=== PATIENT | female | born 1960 | race Caucasian/White ===

== ENCOUNTER 2020-09-25 08:38 | Outpatient (REF) | payer MEDICAID, SELFPAY ==
[2020-09-25 11:31] LABS: Lithium 0.22 mmol/L (0.60-1.20)
[2020-09-25 11:46] LABS: Alanine Aminotransferase 27 U/L (0-31); Alkaline Phosphatase 44 U/L (39-117); Anion Gap 14 (12-20); Aspartate Amino Transferase 32 U/L (5-31); Bilirubin Total 0.5 mg/dL (0.0-1.0); Blood Urea Nitrogen 20 mg/dL (9-16); Calcium 9.5 mg/dL (8.4-10.2); Carbon Dioxide 28 mmol/L (22-29); Chloride 107 mmol/L (96-108); Estimated Glomerular Filt Rate 32; Glucose Random 83 mg/dL (60-115); Sodium 145 mmol/L (135-145); Total Protein 7.4 g/dL (6.5-8.0)
== END 2020-09-25 08:39 | disposition home or self-care (01) ==
LOC: HO.HMGCLDS 08:38
PROVIDERS: PCP Family Medicine; Visit Provider Psychiatry & Neurology Psychiatry
DX: Z79.899 Other long term (current) drug therapy (principal)
CPT/HCPCS: 80053; 80178

== ENCOUNTER 2020-10-16 08:42 | Outpatient (REF) | payer MEDICAID, SELFPAY ==
[2020-10-16 12:01] LABS: Alanine Aminotransferase 31 U/L (0-31); Alkaline Phosphatase 47 U/L (39-117); Anion Gap 15 (12-20); Aspartate Amino Transferase 36 U/L (5-31); Bilirubin Total 0.5 mg/dL (0.0-1.0); Blood Urea Nitrogen 20 mg/dL (9-16); Calcium 9.6 mg/dL (8.4-10.2); Carbon Dioxide 28 mmol/L (22-29); Chloride 105 mmol/L (96-108); Estimated Glomerular Filt Rate 31; Glucose Random 80 mg/dL (60-115); Sodium 144 mmol/L (135-145); Total Protein 7.4 g/dL (6.5-8.0)
[2020-10-16 12:05] LABS: Lithium < 0.10 mmol/L (0.60-1.20)
== END 2020-10-16 08:43 | disposition home or self-care (01) ==
LOC: HO.HMGCLR 08:42
PROVIDERS: PCP Family Medicine; Visit Provider Psychiatry & Neurology Psychiatry
DX: Z79.899 Other long term (current) drug therapy (principal)
CPT/HCPCS: 80053; 80178

== ENCOUNTER 2020-12-19 09:26 | Outpatient (REF) | payer MEDICAID, SELFPAY ==
[2020-12-19 11:28] LABS: MANUAL DIFF FLAG NO
[2020-12-19 11:47] LABS: Basophils Percent Auto 0.4 % (0-2); Eosinophils Absolute Auto 0.1 X10*3/uL (0.0-0.4); Eosinophils Percent Auto 1.1 % (0-4); Hematocrit 40.3 % (37-47); Hemoglobin 13.6 g/dl (12.0-16.0); Imm Gran Abs Auto 0.02 X10*3/uL (0.00-0.03); Imm Gran Pct Auto 0.3 % (0.0-0.4); Lymphocytes Absolute Auto 1.3 X10*3/uL (1.2-4.9); Lymphocytes Percent Auto 16.8 % (20-40); Mean Corpuscular HGB Conc 33.7 g/dl (31.0-35.0); Mean Platelet Volume 9.3 fL (9.4-12.3); Monocytes Absolute Auto 0.4 X10*3/uL (0.1-1.2); Monocytes Percent Auto 5.1 % (2-11); Neutrophils Percent Auto 76.3 % (45-73); Platelet Count 291 X10*3/uL (160-400); Red Blood Count 4.53 X10*6/uL (4.20-5.50); Red Cell Distribution Width 12.1 % (11.0-16.0); White Blood Count 7.9 X10*3/uL (4.8-10.8)
[2020-12-19 11:52] LABS: Alanine Aminotransferase 26 U/L (0-31); Alkaline Phosphatase 43 U/L (39-117); Anion Gap 16 (12-20); Aspartate Amino Transferase 28 U/L (5-31); Bilirubin Total 0.6 mg/dL (0.0-1.0); Blood Urea Nitrogen 17 mg/dL (9-16); Calcium 9.8 mg/dL (8.4-10.2); Carbon Dioxide 26 mmol/L (22-29); Chloride 108 mmol/L (96-108); Estimated Glomerular Filt Rate 32; Glucose Fasting 97 mg/dL (60-99); Potassium 4.1 mmol/l (3.3-5.1); Sodium 146 mmol/L (135-145); Total Protein 7.4 g/dL (6.5-8.0)
== END 2020-12-19 09:27 | disposition home or self-care (01) ==
LOC: HO.HMGCLDS 09:26
PROVIDERS: PCP Family Medicine; Visit Provider Psychiatry & Neurology Psychiatry
DX: Z79.899 Other long term (current) drug therapy (principal)
CPT/HCPCS: 36415; 80053; 85025

== ENCOUNTER 2021-02-21 08:24 | Outpatient (REF) | payer MEDICAID, SELFPAY ==
[2021-02-21 11:11] LABS: MANUAL DIFF FLAG NO
[2021-02-21 11:27] LABS: Basophils Percent Auto 0.3 % (0-2); Eosinophils Absolute Auto 0.1 X10*3/uL (0.0-0.4); Eosinophils Percent Auto 1.6 % (0-4); Hematocrit 40.9 % (37-47); Hemoglobin 13.6 g/dl (12.0-16.0); Imm Gran Abs Auto 0.01 X10*3/uL (0.00-0.03); Imm Gran Pct Auto 0.2 % (0.0-0.4); Lymphocytes Absolute Auto 1.4 X10*3/uL (1.2-4.9); Lymphocytes Percent Auto 21.6 % (20-40); Mean Corpuscular HGB Conc 33.3 g/dl (31.0-35.0); Mean Corpuscular Hemoglobin 30.2 pg (27.0-33.0); Mean Corpuscular Volume 90.9 fL (80-98); Mean Platelet Volume 9.4 fL (9.4-12.3); Monocytes Absolute Auto 0.3 X10*3/uL (0.1-1.2); Monocytes Percent Auto 5.3 % (2-11); Neutrophils Absolute Auto 4.6 X10*3/uL (2.0-8.3); Platelet Count 264 X10*3/uL (160-400); Red Cell Distribution Width 12.1 % (11.0-16.0); White Blood Count 6.4 X10*3/uL (4.8-10.8)
[2021-02-21 11:59] LABS: Alanine Aminotransferase 21 U/L (0-31); Albumin Level 4.9 g/dL (3.5-5.0); Alkaline Phosphatase 38 U/L (39-117); Anion Gap 15 (12-20); Aspartate Amino Transferase 25 U/L (5-31); Bilirubin Total 0.5 mg/dL (0.0-1.0); Blood Urea Nitrogen 16 mg/dL (9-16); Calcium 9.7 mg/dL (8.4-10.2); Carbon Dioxide 29 mmol/L (22-29); Chloride 106 mmol/L (96-108); Estimated Glomerular Filt Rate 30; Glucose Fasting 93 mg/dL (60-99); Sodium 146 mmol/L (135-145); Total Protein 7.2 g/dL (6.5-8.0)
== END 2021-02-21 08:25 | disposition home or self-care (01) ==
LOC: HO.HMGCLR 08:24
PROVIDERS: PCP Family Medicine; Visit Provider Psychiatry & Neurology Psychiatry
DX: Z79.899 Other long term (current) drug therapy (principal)
CPT/HCPCS: 36415; 80053; 85025

== ENCOUNTER 2021-05-25 08:19 | Outpatient (REF) | payer MEDICAID, SELFPAY ==
--- NOTE | ~2021-05-25 | MM_ITS ---
EXAMINATION: MM SCREENING DIGITAL BREAST TOMOSYNTHESIS, BILATERAL CLINICAL INFORMATION: Screening. Asymptomatic. The lifetime risk of breast cancer based on the Tyrer-Cuzick Model is 5.4%. COMPARISON: Mammography: December 22, 2019 and studies dating back to May 14, 2013 TECHNIQUE: Digital breast tomosynthesis is performed in both the craniocaudal and mediolateral oblique views along with computer-aided detection (CAD). Synthesized 2D images are generated from the tomosynthesis. Additional right exaggerated craniocaudal view performed FINDINGS: There are scattered areas of fibroglandular density (ACR BI-RADS breast composition Category b). There are no significant masses, abnormal calcifications, or other abnormalities. MM/MM tomosynthesis screening BI IMPRESSION: There are no significant changes from prior study. ASSESSMENT: BI-RADS 1: Negative RECOMMENDATION: Routine annual mammography screening. This patient's information was entered into a reminder system with a target due date for their next mammogram.
== END 2021-05-25 08:20 | disposition home or self-care (01) ==
LOC: HO.MAMMO 08:19
PROVIDERS: PCP Family Medicine; Visit Provider Obstetrics & Gynecology
DX: Z12.31 Encounter for screening mammogram for malignant neoplasm of breast (principal)
CPT/HCPCS: 77063; 77067

== ENCOUNTER 2021-06-08 08:20 | Outpatient (REF) | payer MEDICAID, SELFPAY ==
[2021-06-08 12:15] LABS: Free T4 (Free Thyroxine) 1.03 ng/dL (0.71-1.85); Thyroid Stimulating Hormone 4.91 uIU/mL (0.32-4.0)
== END 2021-06-08 08:21 | disposition home or self-care (01) ==
LOC: HO.HMGCLDS 08:20
PROVIDERS: PCP Family Medicine; Visit Provider Family Medicine
DX: E03.9 Hypothyroidism, unspecified (principal)
CPT/HCPCS: 36415; 84439; 84443

== ENCOUNTER 2021-06-12 10:00 | Outpatient (RCR) | payer MEDICAID, SELFPAY ==
--- NOTE | 2020-12-15 17:36 | MHC.PT.EP ---
[facility] [place] [facility] [address] Ti Gorman [address] [phone] F: [phone] F: [phone] F: [phone] F: [phone] Physical Therapy Plan of Care Date of Evaluation: 12/15/20 Date of Surgery: Diagnosis: Assessment: Pt is a 60 y/o female with a significant mental health history referred to PT for eval and treat of thoracic scoliosis who presents with thoracic and cervical dysfunction resulting in decreased tolerance and ability for driving her car, performing HH chores, lifting her head for activities including being able to see where she is going while walking as well as reading and performing recreational activities secondary to severe chin to chest cervical / thoracic posture, significant cervical muscle weakness, scapular weakness, decreased cervical ROM, and pain. Pt is deemed an appropriate candidate to receive skilled PT in order to address her physical limitations to improve her functional ability. Frequency and Duration: The patient will be seen 2x/wk x 5 wks. Short Term Goals: in 2 weeks: initiate HEP with evidence of compliance. In 3 weeks: Pt will be able to extend her head from her chest in sitting to 30 degrees flexion [employer] Administrator Goals: In 5 weeks: I with HEP. In 5 weeks: Pt will be able to see her surroundings clearly while ambulating d/t improved cervical posture and strength. Treatment Plan: Modalities to reduce pain, spasms and effusion. Manual therapy to restore motion and function. Therapeutic exercise to improve strength and flexibility. Neuromuscular re-education for posture and balance. Therapeutic activities to return to functional activities of daily living. Electronically signed by: Hebert Moreland PT. Please sign and return to therapist. Thank you for your referral.
== END 2021-06-12 12:30 | disposition home or self-care (01) ==
LOC: HO.PTCHIC 10:00
PROVIDERS: PCP Family Medicine; Visit Provider Family Medicine
DX: M41.84 Other forms of scoliosis, thoracic region (principal)
CPT/HCPCS: 97110; 97116; 97140; 97150; 97162; 97164; 97530

== ENCOUNTER 2021-07-10 08:28 | Outpatient (REF) | payer MEDICAID, SELFPAY ==
[2021-07-10 11:56] LABS: Alanine Aminotransferase 22 U/L (0-31); Albumin Level 4.6 g/dL (3.5-5.0); Alkaline Phosphatase 38 U/L (39-117); Anion Gap 13 (12-20); Aspartate Amino Transferase 29 U/L (5-31); Bilirubin Total 0.5 mg/dL (0.0-1.0); Blood Urea Nitrogen 17 mg/dL (9-16); Calcium 9.4 mg/dL (8.4-10.2); Carbon Dioxide 28 mmol/L (22-29); Chloride 110 mmol/L (96-108); Estimated Glomerular Filt Rate 29; Glucose Fasting 88 mg/dL (60-99); Sodium 147 mmol/L (135-145); Total Protein 6.8 g/dL (6.5-8.0)
[2021-07-10 12:10] LABS: Thyroid Stimulating Hormone 12.04 uIU/mL (0.32-4.0)
== END 2021-07-10 08:29 | disposition home or self-care (01) ==
LOC: HO.HMGCLDS 08:28
PROVIDERS: PCP Family Medicine; Visit Provider Psychiatry & Neurology Psychiatry
DX: Z79.899 Other long term (current) drug therapy (principal)
CPT/HCPCS: 36415; 80053; 84443

== ENCOUNTER 2021-09-27 08:30 | Outpatient (REF) | payer MEDICAID, SELFPAY ==
[2021-09-27 11:57] LABS: Free T4 (Free Thyroxine) 1.28 ng/dL (0.71-1.85)
[2021-09-28 17:45] LABS: Thyroglobulin 0.5 ng/mL
== END 2021-09-27 08:31 | disposition home or self-care (01) ==
LOC: HO.HMGCLDS 08:30
PROVIDERS: PCP Family Medicine; Visit Provider Family Medicine
DX: E03.9 Hypothyroidism, unspecified (principal); C73 Malignant neoplasm of thyroid gland
CPT/HCPCS: 36415; 84432; 84439; 84443

== ENCOUNTER 2021-12-03 10:00 | Outpatient (RCR) | payer MEDICAID, SELFPAY ==
--- NOTE | 2021-10-04 09:40 | MHC.PT.EP ---
[facility] [place] Office [place] Office [place] Office [address] [phone] F: [phone] F: [phone] F: [phone] F: [phone] Physical Therapy Plan of Care Date of Evaluation: Date of Surgery: Diagnosis: Thoracic scoliosis Assessment: Pt is a 61 y/o female with a significant mental health history referred to PT for eval and treat of thoracic scoliosis (with special MD instructions: Pt had new back brace and needs assistance learning to get in and out of it) who presents with significant thoracic and cervical dysfunction resulting in decreased tolerance and ability for driving her car, performing HH chores, lifting her head for activities including being able to see where she is going while walking as well as reading, eating and drinking, as well as performing recreational activities secondary to severe chin to chest cervical / thoracic posture, significant cervical muscle weakness, gait abnormality d/t posturing, decreased cervical ROM, and pain. Pt is deemed an appropriate candidate to receive skilled PT in order to address her physical limitations to improve her functional ability. Frequency and Duration: The patient will be seen 1 x / wk x 5 wks. Short Term Goals: In 2 weeks: initiate HEP. In 3 weeks: Pt will demonstrate donning and doffing device independently in the clinic. Fpc Goals: In 5 weeks: I with HEP. In 5 weeks: Pt will be I with device use in her home with reports of regular use. In 5 weeks: Pt will ambulate 300 ft in her device without path sway or scissoring steps and demonstrates constant velocity. Treatment Plan: Modalities to reduce pain, spasms and effusion. Manual therapy to restore motion and function. Therapeutic exercise to improve strength and flexibility. Neuromuscular re-education for posture and balance. Therapeutic activities to return to functional activities of daily living. Electronically signed by: Hebert Moreland PT. Please sign and return to therapist. Thank you for your referral.
--- NOTE | 2022-03-15 14:03 | MHC.PT.DC ---
[facility] [place] Office [place] Office [place] Office [address] Ti Gorman [address] [phone] F: [phone] F: [phone] F: [phone] F: [phone] Physical Therapy Discharge Report Diagnosis: Thoracic scoliosis Date of Surgery: Date of Evaluation: 10/02/21 Date of Discharge: 03/15/22 Treatments to Date: 4 Cancellations to Date: 5 No Shows to Date: Discharge Status: Improved Function Independent with HEP Discharge Summary: Maryse has learned to don and doff her new device independently. Unfortunately due to some scheduling restrictions and insurance limitations she was only able to attend 4 sessions. She has a home program for postural and cervical strengthening which she attempts to perform regularly. Unfortunately due to some scheduling restrictions and insurance limitations she was only able to attend 4 sessions for this point of care. Electronically signed by: Hebert Moreland PT. Please sign and return to therapist. Thank you for your referral.
== END 2022-03-15 14:05 | disposition home or self-care (01) ==
LOC: HO.PTCHIC 10:00
PROVIDERS: PCP Family Medicine; Visit Provider Family Medicine
DX: M41.84 Other forms of scoliosis, thoracic region (principal)
CPT/HCPCS: 97110; 97116; 97162; 97530

== ENCOUNTER 2022-01-10 11:03 | Outpatient (REF) | payer MEDICAID, SELFPAY ==
[2022-01-10 13:52] LABS: Hematocrit 35.5 % (37.0-47.0); Hemoglobin 11.9 g/dl (12.0-16.0); Mean Corpuscular HGB Conc 33.5 g/dl (31.0-35.0); Mean Corpuscular Hemoglobin 30.7 pg (27.0-33.0); Mean Corpuscular Volume 91.5 fL (80.0-98.0); Mean Platelet Volume 9.6 fL (9.4-12.3); Platelet Count 188 X10*3/uL (160-400); Red Blood Count 3.88 X10*6/uL (4.20-5.50); Red Cell Distribution Width 12.1 % (11.0-16.0); White Blood Count 5.6 X10*3/uL (4.8-10.8)
[2022-01-10 14:09] LABS: Anion Gap 13 (12-20); Blood Urea Nitrogen 19 mg/dL (9-16); Carbon Dioxide 26 mmol/L (22-29); Chloride 105 mmol/L (96-108); Estimated Glomerular Filt Rate 34; Potassium 4.1 mmol/L (3.3-5.1); Sodium 140 mmol/L (135-145)
== END 2022-01-10 11:04 | disposition home or self-care (01) ==
LOC: HO.HMGCLDS 11:03
PROVIDERS: PCP Family Medicine; Visit Provider Family Medicine
DX: N18.30 Chronic kidney disease, stage 3 unspecified (principal)
CPT/HCPCS: 36415; 80051; 82565; 84520; 85027

== ENCOUNTER 2022-01-22 10:09 | Outpatient (REF) | payer MEDICAID, SELFPAY ==
[2022-01-22 11:37] LABS: MANUAL DIFF FLAG NO
[2022-01-22 11:47] LABS: Basophils Percent Auto 0.5 % (0-2); Eosinophils Absolute Auto 0.1 X10*3/uL (0.0-0.4); Hematocrit 37.9 % (37.0-47.0); Hemoglobin 12.6 g/dl (12.0-16.0); Imm Gran Abs Auto 0.02 X10*3/uL (0.00-0.03); Imm Gran Pct Auto 0.3 % (0.0-0.4); Lymphocytes Absolute Auto 0.8 X10*3/uL (1.2-4.9); Lymphocytes Percent Auto 14.5 % (20-40); Mean Corpuscular HGB Conc 33.2 g/dl (31.0-35.0); Mean Corpuscular Hemoglobin 30.6 pg (27.0-33.0); Mean Platelet Volume 9.4 fL (9.4-12.3); Monocytes Absolute Auto 0.3 X10*3/uL (0.1-1.2); Monocytes Percent Auto 5.5 % (2-11); Neutrophils Absolute Auto 4.5 x10*3/uL (2.0-8.3); Neutrophils Percent Auto 78.2 % (45-73); Platelet Count 202 X10*3/uL (160-400); Red Blood Count 4.12 X10*6/uL (4.20-5.50); White Blood Count 5.8 X10*3/uL (4.8-10.8)
[2022-01-22 12:25] LABS: Folate 15.5 ng/mL (> or = 4.0); Vitamin B12 864 pg/mL (200-900)
[2022-01-22 12:32] LABS: Iron 81 mcg/dL (30-160); Percent Iron Saturation 32 % (15-50); Total Iron Binding Capacity 257 mcg/dL (228-428); Unsaturated Iron Binding 176 ug/dL
== END 2022-01-22 10:10 | disposition home or self-care (01) ==
LOC: HO.HMGCLDS 10:09
PROVIDERS: Visit Provider Family Medicine
DX: D64.9 Anemia, unspecified (principal)
CPT/HCPCS: 36415; 82607; 82746; 83540; 85025

== ENCOUNTER 2022-03-15 10:22 | Day surgery (SDC) | payer MEDICAID, SELFPAY ==
[2022-03-12 09:04] VITALS: BMI 23.0
--- NOTE | 2022-03-14 10:03 | HO.ANESPROP2 ---
Documented by User: Shayy Gerardo NP 03/14/22 10:05 HPI - Anesthesia Eval Consult details Narrative: 62yo F for Upper Endoscopy and Colonoscopy *Multiple Med Allergies* [facility] Past Medical History Medical History (Updated 03/12/22 @ 09:11 by Susan Palmer, RN) Anxiety and depression Bipolar disorder Dissociative identity disorder GERD (gastroesophageal reflux disease) Hyperlipidemia Hypothyroidism Irritable bowel syndrome (IBS) Murmur Neck pain Post traumatic stress disorder (PTSD) Surgical History Surgical History (Updated 03/12/22 @ 09:03 by Susan Palmer, RN) History of total thyroidectomy Hx of colonoscopy Social History Social History Are you a primary manager critical care unit to a significant other at home: No Do you presently have visiting nurse or other home services: Yes ([facility] 2 x week) Patient Tobacco Use Status: Former Tobacco user Quit Date: 2001 Tobacco use type: Cigarette Use of substances other than those prescribed or required for medical reasons: No Have you been hit, kicked, punched, or otherwise hurt by someone within the past year? If so, by whom?: No Are you DNR?: No Advance Directives: No Advance Directives Information Provided: Yes Advance Directives on File: No Recently lost weight without trying: Yes How much weight loss: 14-23 pounds Eating poorly because of decreased appetite: No Nutrition screen score: 4 Nutrition Risks: Difficulty swallowing Meds Allergies Allergy/AdvReac Type Severity Reaction Status Date / Time Penicillins [PENICILLINS] Allergy Severe HIVES Verified 03/12/22 08:56 sulfamethoxazole Allergy Severe DIARRHEA Verified 03/12/22 08:56 [From BACTRIM] trimethoprim [From BACTRIM] Allergy Severe DIARRHEA Verified 03/12/22 08:56 aripiprazole [From ABILIFY] Allergy Intermediate ATAXIA Verified 03/12/22 08:56 aspirin [ASPIRIN] Allergy Intermediate STOMACH Verified 03/12/22 08:56 CRAMPS benztropine [From COGENTIN] Allergy Intermediate CONFUSION, Verified 03/12/22 08:56 memory loss bupropion [BUPROPION] Allergy Intermediate DIZZINESS Verified 03/12/22 08:56 erythromycin base Allergy Intermediate GI UPSET Verified 03/12/22 08:56 [ERYTHROMYCIN BASE] ibuprofen [From MOTRIN] Allergy Intermediate STOMACH Verified 03/12/22 08:56 CRAMPS olanzapine [From ZYPREXA] Allergy Intermediate TONGUE Verified 03/12/22 08:56 MOVEMENTS perphenazine [From TRILAFON] Allergy Intermediate ARM AND Verified 03/12/22 08:56 LEG MOVEMENTS, FALL risperidone [From RISPERDAL] Allergy Intermediate TONGUE Verified 03/12/22 08:56 MOVEMENT From INDERAL Allergy Intermediate WHEEZING Uncoded 03/12/22 08:56 Home Medications Medication Instructions Recorded Confirmed Last Taken Type cholecalciferol (vitamin D3) 25 25 mcg PO DAILY 03/12/22 03/12/22 Unknown History mcg (1,000 unit) capsule (Vitamin D3) clonazepam 0.5 mg tablet 1 tab PO TID PRN 03/12/22 03/12/22 03/15/22 History coenzyme Q10 100 mg capsule 100 mg PO DAILY 03/12/22 03/12/22 Unknown History (CoQ-10) lamotrigine 100 mg tablet 2 tab PO BEDTIME 03/12/22 03/12/22 Unknown History lamotrigine 25 mg tablet 2 tab PO DAILY 03/12/22 03/12/22 Unknown History levothyroxine 100 mcg tablet 1 tab PO DAILY 03/12/22 03/12/22 03/15/22 History multivitamin 1 tab PO DAILY 03/12/22 03/12/22 Unknown History omeprazole 20 mg capsule,delayed 1 cap PO DAILY 03/12/22 03/12/22 Unknown History release simvastatin 40 mg tablet 1 tab PO DAILY 03/12/22 03/12/22 Unknown History trihexyphenidyl 2 mg tablet 1 tab PO QAM 03/12/22 03/12/22 Unknown History ziprasidone HCl 80 mg capsule 1 cap PO BID 03/12/22 03/12/22 Unknown History Exam Exam Date and Time: March 14, 2022 1003 Height,Weight and Vital Signs: Height 5 ft 3 in Weight 58.967 kg Assessment and Plan Assessment Anesthesia Assessment: Chart Reviewed Documented by User: Isadora Singh MD 03/15/22 10:54 [facility] Past Medical History Medical History (Updated 03/12/22 @ 09:11 by Susan Palmer RN) Anxiety and depression Bipolar disorder Dissociative identity disorder GERD (gastroesophageal reflux disease) Hyperlipidemia Hypothyroidism Irritable bowel syndrome (IBS) Murmur Neck pain Post traumatic stress disorder (PTSD) Family History Family history of problems with anesthesia: No Surgical History Surgical History (Updated 03/12/22 @ 09:03 by Susan Palmer RN) History of total thyroidectomy Hx of colonoscopy History of Problems with Anesthesia: No Social History Social History Are you a primary manager critical care unit to a significant other at home: No Do you presently have visiting nurse or other home services: Yes ([facility] 2 x week) Patient Tobacco Use Status: Former Tobacco user Quit Date: 2001 Tobacco use type: Cigarette Use of substances other than those prescribed or required for medical reasons: No Have you been hit, kicked, punched, or otherwise hurt by someone within the past year? If so, by whom?: No Are you DNR?: No Advance Directives: No Advance Directives Information Provided: Yes Advance Directives on File: No Recently lost weight without trying: Yes How much weight loss: 14-23 pounds Eating poorly because of decreased appetite: No Nutrition screen score: 4 Nutrition Risks: Difficulty swallowing Meds Allergies Allergy/AdvReac Type Severity Reaction Status Date / Time Penicillins [PENICILLINS] Allergy Severe HIVES Verified 03/12/22 08:56 sulfamethoxazole Allergy Severe DIARRHEA Verified 03/12/22 08:56 [From BACTRIM] trimethoprim [From BACTRIM] Allergy Severe DIARRHEA Verified 03/12/22 08:56 aripiprazole [From ABILIFY] Allergy Intermediate ATAXIA Verified 03/12/22 08:56 aspirin [ASPIRIN] Allergy Intermediate STOMACH Verified 03/12/22 08:56 CRAMPS benztropine [From COGENTIN] Allergy Intermediate CONFUSION, Verified 03/12/22 08:56 memory loss bupropion [BUPROPION] Allergy Intermediate DIZZINESS Verified 03/12/22 08:56 erythromycin base Allergy Intermediate GI UPSET Verified 03/12/22 08:56 [ERYTHROMYCIN BASE] ibuprofen [From MOTRIN] Allergy Intermediate STOMACH Verified 03/12/22 08:56 CRAMPS olanzapine [From ZYPREXA] Allergy Intermediate TONGUE Verified 03/12/22 08:56 MOVEMENTS perphenazine [From TRILAFON] Allergy Intermediate ARM AND Verified 03/12/22 08:56 LEG MOVEMENTS, FALL risperidone [From RISPERDAL] Allergy Intermediate TONGUE Verified 03/12/22 08:56 MOVEMENT From INDERAL Allergy Intermediate WHEEZING Uncoded 03/12/22 08:56 Home Medications Medication Instructions Recorded Confirmed Last Taken Type cholecalciferol (vitamin D3) 25 25 mcg PO DAILY 03/12/22 03/12/22 Unknown History mcg (1,000 unit) capsule (Vitamin D3) clonazepam 0.5 mg tablet 1 tab PO TID PRN 03/12/22 03/12/22 03/15/22 History coenzyme Q10 100 mg capsule 100 mg PO DAILY 03/12/22 03/12/22 Unknown History (CoQ-10) lamotrigine 100 mg tablet 2 tab PO BEDTIME 03/12/22 03/12/22 Unknown History lamotrigine 25 mg tablet 2 tab PO DAILY 03/12/22 03/12/22 Unknown History levothyroxine 100 mcg tablet 1 tab PO DAILY 03/12/22 03/12/22 03/15/22 History multivitamin 1 tab PO DAILY 03/12/22 03/12/22 Unknown History omeprazole 20 mg capsule,delayed 1 cap PO DAILY 03/12/22 03/12/22 Unknown History release simvastatin 40 mg tablet 1 tab PO DAILY 03/12/22 03/12/22 Unknown History trihexyphenidyl 2 mg tablet 1 tab PO QAM 03/12/22 03/12/22 Unknown History ziprasidone HCl 80 mg capsule 1 cap PO BID 03/12/22 03/12/22 Unknown History Exam Airway Mallampati Class: II TM Dist: >3cm Neck ROM: Full Assessment and Plan Assessment Anesthesia Assessment: Anesthesia Plan Discussed Final Anesthetic Review Family History of Problems with Anesthesia: No History of Problems with Anesthesia: No NPO: Yes ASA Class: II Final Preanesthetic Review: No Changes in Pt Med Stat, Meds/Allgs Chart Reviewed, Consent Obtained/Reviewed and Anes Risks/Benef Reviewed Patient Risk: Intermediate Procedure Risk: Low Anesthetic Plan Anesthetic Plan: MAC: Disposition: Standard PACU
[2022-03-15 10:40] VITALS: BP 129/71; PULSE 79; RESP 18; TEMP 37; O2SAT 96
--- NOTE | 2022-03-15 11:16 | ECG_ITS ---
Test Reason : sss ? flutter Blood Pressure : / mmHG Vent. Rate : 064 BPM Atrial Rate : 064 BPM P-R Int : 188 ms QRS Dur : 082 ms QT Int : 416 ms P-R-T Axes : 070 -12 039 degrees QTc Int : 429 ms Normal sinus rhythm with sinus arrhythmia Normal ECG When compared with ECG of 18-DEC-2014 18:43, Nonspecific T wave abnormality no longer evident in Anterior leads Referred By: Isadora iSngh Electronically Signed By:Leif Castellon
[2022-03-15] MEDS: Lactated Ringers 1,000 ML 100 ML IVCONT (11:26)
[2022-03-15 12:46] VITALS: BP 111/58; PULSE 64; RESP 14; TEMP 36.3; O2SAT 100
--- NOTE | 2022-03-15 12:47 | PM.OP ---
Brief Operative Note Date of Service: 03/15/22 Pre-op diagnosis: GERD, Screening Post-op diagnosis: other (Hiatal hernia, Polyps) Procedure: EGD, Colonoscopy to the cecum and TI with bx/removal of polyp, and hot snare polypectomy at 18cm Surgeon: Abelardo Sal Anesthesia: MAC Was an Filament Welder used for this Procedure?: No Estimated blood loss (mL): 2.0 Pathology: other (A. Transverse colon polyp B. Polyp at 18cm) Condition: stable Disposition: PACU
[2022-03-15 13:01] VITALS: BP 129/65; PULSE 59; RESP 15; TEMP 36.8
[2022-03-15 13:26] VITALS: BP 118/67; PULSE 58; TEMP 36.6; O2SAT 98
[2022-03-15] MEDS: Acetaminophen 325 MG TABLET 650 MG PO (14:00)
--- NOTE | 2022-03-15 23:44 | OP_ITS ---
SURGEON: Abelardo Sal MD INDICATIONS: The patient presents for evaluation of gastroesophageal reflux, personal history of tubular adenoma of the colon, and colorectal cancer screening. Full consent was obtained from her for both procedures, including risks of bleeding and perforation. PREOPERATIVE DIAGNOSIS: POSTOPERATIVE DIAGNOSIS: PROCEDURE PERFORMED: Esophagogastroduodenoscopy and colonoscopy to the cecum and terminal ileum with biopsy and removal of polyp, and hot snare polypectomy. ESTIMATED BLOOD LOSS: COMPLICATIONS: ANESTHESIA: Monitored anesthesia care. ASSISTANTS: SPECIMENS: PREOPERATIVE DIAGNOSES: Gastroesophageal reflux, personal history of tubular adenoma of the colon, and colorectal cancer screening. POSTOPERATIVE DIAGNOSES: Gastroesophageal reflux, personal history of tubular adenoma of the colon, colorectal cancer screening, small hiatal hernia, colon polyps, diverticulosis and internal hemorrhoids. DESCRIPTION OF PROCEDURE: The patient was placed in the left lateral decubitus position. The Olympus video gastroscope was passed in the posterior oropharynx and upper esophagus under direct vision. The scope was passed slowly into the distal esophagus. The gastroesophageal junction appeared at 35 cm. This area appeared normal without any sign of Mata esophagus nor esophagitis. The scope entered into the stomach. There was a small hiatal hernia. The scope was advanced to the pylorus and the duodenum was cannulated to the descending portion. The duodenum including the bulb appeared normal without mass or ulceration. The scope was withdrawn back in the stomach. The gastric antrum and body appeared normal with good peristalsis. The scope was retroflexed visualizing the proximal stomach carefully, which appeared normal, without any sign of mass or ulceration. The scope was straightened and withdrawn back to the esophagus. The esophageal mucosa appeared normal. The scope was withdrawn from the patient. She was turned around for the colonoscopy. The digital rectal exam revealed no abnormalities. The Olympus video pediatric colonoscope was entered into the rectum and advanced easily to the cecum. Once in the cecum, I did identify normal-appearing cecal pouch with appendiceal orifice and a normal-appearing ileocecal valve. The terminal ileum was cannulated and appeared normal. Scope was withdrawn back in the colon. The entire cecum and ileocecal valve appeared normal. The scope was then slowly withdrawn assessing all mucosal surfaces carefully. Preparation was excellent. In the transverse colon was a flat approximately 3 or 4 mm polyp, which was biopsied and completely removed with cold biopsy forceps. At approximately 18 cm was an approximately 10-12 mm polyp, which was removed with hot snare polypectomy and recovered by suction. The polypectomy site appeared clean, without any sign of residual polyp nor bleeding. I did not visualize any other polyps, colitis, or angiodysplasia. There was a mild amount of sigmoid diverticulosis. In the rectum, scope was retroflexed visualizing internal hemorrhoids, but no other pathology. The rectal mucosa appeared normal. The scope was straightened and withdrawn from the patient. She tolerated both procedures well and was returned to recovery area in stable condition. IMPRESSION: 1. Colon polyps. 2. Diverticulosis. 3. Internal hemorrhoids. 4. Small hiatal hernia. PLAN: The results of the pathology will be checked. I would recommend a repeat colonoscopy in 5 years. She should continue her omeprazole as needed for her reflux symptoms. She will otherwise see me on a p.r.n. basis. She was advised not to use any aspirin and NSAIDs for 1 week. MD TACHO Marks/TONY / [id number]
== END 2022-03-15 14:20 | disposition home or self-care (01) ==
PROVIDERS: PCP Family Medicine; Visit Provider Internal Medicine
PROC: (CPT 45385; principal; 2022-03-15 11:40)
DX: Z12.11 Encounter for screening for malignant neoplasm of colon (principal); Z86.010 Personal history of colon polyps; D12.3 Benign neoplasm of transverse colon; K63.5 Polyp of colon; K57.30 Diverticulosis of large intestine without perforation or abscess without bleeding; K64.8 Other hemorrhoids; K58.9 Irritable bowel syndrome, unspecified; K21.9 Gastro-esophageal reflux disease without esophagitis; K44.9 Diaphragmatic hernia without obstruction or gangrene; E78.5 Hyperlipidemia, unspecified; E03.9 Hypothyroidism, unspecified; F31.9 Bipolar disorder, unspecified; F43.10 Post-traumatic stress disorder, unspecified; F44.81 Dissociative identity disorder; Z79.899 Other long term (current) drug therapy; Z87.891 Personal history of nicotine dependence
CPT/HCPCS: 45385; 45380; 43235; 88305; 93005; J2250

== ENCOUNTER 2022-05-28 10:11 | Outpatient (REF) | payer MEDICAID, SELFPAY ==
[2022-05-28 10:56] LABS: COVID-19 Test Negative (Negative); IDNOW Serial# 08D9AD1C
== END 2022-05-28 10:12 | disposition home or self-care (01) ==
LOC: HO.LAB 10:11
PROVIDERS: Visit Provider Internal Medicine
DX: Z20.822 Contact with and (suspected) exposure to COVID-19 (principal)
CPT/HCPCS: 87635; C9803

== ENCOUNTER 2022-09-13 09:46 | Outpatient (REF) | payer MEDICAID, SELFPAY ==
[2022-09-13 11:25] LABS: MANUAL DIFF FLAG NO
[2022-09-13 11:38] LABS: Basophils Percent Auto 0.6 % (0-2); Eosinophils Absolute Auto 0.1 X10*3/uL (0.0-0.4); Eosinophils Percent Auto 1.9 % (0-4); Hematocrit 36.4 % (37.0-47.0); Hemoglobin 12.5 g/dl (12.0-16.0); Imm Gran Abs Auto 0.02 X10*3/uL (0.00-0.03); Imm Gran Pct Auto 0.4 % (0.0-0.4); Lymphocytes Percent Auto 19.4 % (20-40); Mean Corpuscular HGB Conc 34.3 g/dl (31.0-35.0); Mean Corpuscular Hemoglobin 31.6 pg (27.0-33.0); Mean Corpuscular Volume 92.2 fL (80.0-98.0); Mean Platelet Volume 9.5 fL (9.4-12.3); Monocytes Absolute Auto 0.4 X10*3/uL (0.1-1.2); Monocytes Percent Auto 7.1 % (2-11); Neutrophils Absolute Auto 3.8 x10*3/uL (2.0-8.3); Neutrophils Percent Auto 70.6 % (45-73); Platelet Count 192 X10*3/uL (160-400); Red Blood Count 3.95 X10*6/uL (4.20-5.50); Red Cell Distribution Width 11.9 % (11.0-16.0); White Blood Count 5.4 X10*3/uL (4.8-10.8)
[2022-09-13 12:24] LABS: Anion Gap 15 (12-20); Blood Urea Nitrogen 20 mg/dL (9-16); Carbon Dioxide 28 mmol/L (22-29); Chloride 100 mmol/L (96-108); Estimated Glomerular Filt Rate 32; Sodium 139 mmol/L (135-145)
[2022-09-13 12:25] LABS: Free T4 (Free Thyroxine) 1.11 ng/dL (0.71-1.85); Thyroid Stimulating Hormone 7.06 uIU/mL (0.32-4.0)
== END 2022-09-13 09:47 | disposition home or self-care (01) ==
LOC: HO.HMGCLDS 09:46
PROVIDERS: Absent Provider Internal Medicine; PCP Family Medicine; Visit Provider Family Medicine
DX: N18.30 Chronic kidney disease, stage 3 unspecified (principal); E03.9 Hypothyroidism, unspecified; K21.9 Gastro-esophageal reflux disease without esophagitis
CPT/HCPCS: 36415; 80051; 82565; 84439; 84443; 84520; 85025

== ENCOUNTER 2022-09-17 08:40 | Outpatient (REF) | payer MEDICAID, SELFPAY ==
--- NOTE | ~2022-09-17 | MM_ITS ---
EXAMINATION: MM SCREENING DIGITAL BREAST TOMOSYNTHESIS, BILATERAL CLINICAL INFORMATION: Screening. Asymptomatic. The lifetime risk of breast cancer based on the Tyrer-Cuzick Model is 6%. COMPARISON: Mammography: 05/25/2021, 12/22/2019, 12/24/2018 TECHNIQUE: Digital breast tomosynthesis is performed in both the craniocaudal and mediolateral oblique views along with computer-aided detection (CAD). Synthesized 2D images are generated from the tomosynthesis. Additional bilateral exaggerated CC views are provided. FINDINGS: There are scattered areas of fibroglandular density (ACR BI-RADS breast composition Category b). There are no significant masses, abnormal calcifications, or other abnormalities. Parenchymal pattern is similar to prior studies. There is no developing density or architectural abnormality. The axilla and skin contours are unremarkable. No significant changes. MM/MM tomosynthesis screening BI IMPRESSION: No mammographic evidence of malignancy. ASSESSMENT: BI-RADS 1: Negative RECOMMENDATION: Routine annual mammography screening. This patient's information was entered into a reminder system with a target due date for their next mammogram.
--- NOTE | ~2022-09-17 | MM_ITS ---
EXAMINATION: BONE DENSITOMETRY CLINICAL INDICATION: Menopause. COMPARISON: Baseline BD dated 09/26/2016. TECHNIQUE: Using a [employer] DXA System (software version: 13.1) manufactured by [employer], dual-energy x-ray absorptiometry was performed of the lumbar spine and left hip. The images are of good technical quality. Summary results are attached. FINDINGS: AP SPINE L1-L4: Current: BMD 1.398 g/cm2, Z-score 3.5, T-score 1.8, normal, 0.2% increase from baseline (<5% change is not significant). Baseline: BMD 1.395 g/cm2. LEFT FEMUR, NECK: Current: BMD 0.879 g/cm2, Z-score 0.4, T-score -1.1, osteopenia. Baseline: BMD 0.997 g/cm2. LEFT FEMUR, TOTAL: Current: BMD 0.925 g/cm2, Z-score 0.6, T-score -0.7, normal, 12.3% decrease from baseline (<5% change is not significant). Baseline: BMD 1.055 g/cm2. IDENTIFIED RISK FACTORS: Height loss, low calcium intake, menopause. HISTORY OF FRACTURE: None listed. MEDICATIONS: Vitamin D. MM/XR DEXA axial skeleton IMPRESSION: 1. DIAGNOSIS: Osteopenia based on the lowest T-score value of -1.1 in the femoral neck applying World Health Organization criteria. 2. 10-YEAR FRACTURE RISK PREDICTION, FRAX: Major osteoporotic fracture (clinical spine, forearm, hip or shoulder) 8.1%. Hip fracture 0.7%. 3. Treatment Recommendations: NOF guidelines recommend consideration for treatment in postmenopausal women and men age 50 and older presenting with the following: -A hip or vertebral (clinical or morphometric) fracture. -T-score less than or equal to -2.5 at the femoral neck or spine after appropriate evaluation to exclude secondary causes. -Low bone mass at the hip or spine and a 10-year fracture probability by FRAX of greater than or equal to 3% for hip fracture or greater than or equal to 20% for major osteoporotic fracture based on the [place] adapted WHO algorithm. 4. Other Recommendations: All treatment decisions require clinical judgment and consideration of individual patient factors, including patient preferences, comorbidities, previous drug use, risk factors not captured in the FRAX model (e.g. frailty, falls, vitamin D deficiency, increased bone turnover, interval significant decline in bone density) and possible under or overestimation of fracture risk by FRAX. Additional medical evaluation for secondary cause of low bone mineral density may be appropriate. FUTURE SCAN RECOMMENDATION: People with diagnosed cases of osteoporosis or at high risk for fracture should have regular bone mineral density tests. For patients eligible for Medicare, routine testing is allowed once every 2 years. The testing frequency can be increased to one year for patients who have rapidly progressing disease, those who are receiving or discontinuing medical therapy to restore bone mass, or have additional risk factors.
== END 2022-09-17 08:41 | disposition home or self-care (01) ==
LOC: HO.MAMMO 08:40
PROVIDERS: Visit Provider Obstetrics & Gynecology
DX: Z12.31 Encounter for screening mammogram for malignant neoplasm of breast (principal); Z13.820 Encounter for screening for osteoporosis; Z78.0 Asymptomatic menopausal state
CPT/HCPCS: 77063; 77067; 77080

== ENCOUNTER 2023-02-07 10:22 | Outpatient (REF) | payer MEDICARE, MEDICAID, SELFPAY ==
[2023-02-07 13:28] LABS: Free T4 (Free Thyroxine) 1.33 ng/dL (0.71-1.85); Thyroid Stimulating Hormone 0.47 uIU/mL (0.32-4.0)
== END 2023-02-07 10:23 | disposition home or self-care (01) ==
LOC: HO.HMGCLDS 10:22
PROVIDERS: PCP Family Medicine; Visit Provider Family Medicine
DX: E03.9 Hypothyroidism, unspecified (principal)
CPT/HCPCS: 36415; 84439; 84443

== ENCOUNTER 2023-09-29 16:48 | Inpatient (IN) | payer MEDICARE, MEDICAID, SELFPAY ==
[2023-09-29 18:06] VITALS: BP 136/68; PULSE 96; RESP 18; TEMP 37.7; O2SAT 96; BMI 24.6
--- NOTE | 2023-09-29 18:08 | ED.PSYCH ---
HPI - Psych General Chief Complaint: Psychiatric Symptoms Stated Complaint: Crisis Time Seen by Provider: 09/29/23 17:20 Source: patient Mode of arrival: ambulatory Limitations: no limitations History of Present Illness HPI Narrative: -patient comes to the emergency room. Patient states that she is here because she stopped taking her medications 2 days ago. When I asked the patient what her reason was, patient states that she is anorexic and neck so have control over what she ingests. Patient denies SI or HI. Patient is holding her neck with her chin touching her chest. I asked the patient was the reason for this, patient has a neck brace. Patient's answer was I self loath myself . Patient states that she has had physical therapy, but whenever she feels better emotionally, she is able to straighten up her neck Related Data Home Medications Medication Instructions Recorded Confirmed cholecalciferol (vitamin D3) 25 25 mcg PO DAILY 03/12/22 03/12/22 mcg (1,000 unit) capsule (Vitamin D3) clonazepam 0.5 mg tablet 1 tab PO TID PRN anxiety 03/12/22 03/12/22 coenzyme Q10 100 mg capsule 100 mg PO DAILY 03/12/22 03/12/22 (CoQ-10) lamotrigine 100 mg tablet 2 tab PO BEDTIME 03/12/22 03/12/22 lamotrigine 25 mg tablet 2 tab PO DAILY 03/12/22 03/12/22 levothyroxine 100 mcg tablet 1 tab PO DAILY 03/12/22 03/12/22 multivitamin 1 tab PO DAILY 03/12/22 03/12/22 omeprazole 20 mg capsule,delayed 1 cap PO DAILY 03/12/22 03/12/22 release simvastatin 40 mg tablet 1 tab PO DAILY 03/12/22 03/12/22 trihexyphenidyl 2 mg tablet 1 tab PO QAM 03/12/22 03/12/22 ziprasidone HCl 80 mg capsule 1 cap PO BID 03/12/22 03/12/22 Allergies Allergy/AdvReac Type Severity Reaction Status Date / Time Penicillins [PENICILLINS] Allergy Severe HIVES Verified 03/12/22 08:56 sulfamethoxazole Allergy Severe DIARRHEA Verified 03/12/22 08:56 [From BACTRIM] trimethoprim [From BACTRIM] Allergy Severe DIARRHEA Verified 03/12/22 08:56 aripiprazole [From ABILIFY] Allergy Intermediate ATAXIA Verified 03/12/22 08:56 aspirin [ASPIRIN] Allergy Intermediate STOMACH Verified 03/12/22 08:56 CRAMPS benztropine [From COGENTIN] Allergy Intermediate CONFUSION, Verified 03/12/22 08:56 memory loss bupropion [BUPROPION] Allergy Intermediate DIZZINESS Verified 03/12/22 08:56 erythromycin base Allergy Intermediate GI UPSET Verified 03/12/22 08:56 [ERYTHROMYCIN BASE] ibuprofen [From MOTRIN] Allergy Intermediate STOMACH Verified 03/12/22 08:56 CRAMPS olanzapine [From ZYPREXA] Allergy Intermediate TONGUE Verified 03/12/22 08:56 MOVEMENTS perphenazine [From TRILAFON] Allergy Intermediate ARM AND Verified 03/12/22 08:56 LEG MOVEMENTS, FALL risperidone [From RISPERDAL] Allergy Intermediate TONGUE Verified 03/12/22 08:56 MOVEMENT egg AdvReac Stomach Verified 09/29/23 18:15 Upset From INDERAL Allergy Intermediate WHEEZING Uncoded 03/12/22 08:56 Review of Systems Review of Systems: Constitutional : No Weight loss, No Fever, No Chills, No Night Sweats, No Fatigue, No Malaise ENT/Mouth : No Hearing loss, No Ear Pain, No Nasal Congestion, No Sinus Pain, No Hoarseness, No sore throat, No Rhinorrhea, No Swallowing Difficulty Eyes: No Eye Pain, No Swelling, No Redness, No Foreign Body, No Discharge, No Vision Changes Cardiovascular : No Chest Pain, No SOB, No Dyspnea on Exertion, No Orthopnea, No Edema, No Palpitations Respiratory : No Cough, No Sputum, No Wheezing, No Smoke Exposure, No Dyspnea Gastrointestinal : No Nausea, No Vomiting, No Diarrhea, No Constipation, No abdominal Pain, No Hematochezia, No Melena Genitourinary : no irregular bleeding, No Dysuria, No Urinary Frequency, No Hematuria, No Urinary Incontinence, No Urgency, No Flank Pain, No Urinary Flow Changes, No Hesitancy Musculoskeletal : No joint pain, No Myalgias, No Joint Swelling Skin : No Skin Lesions, No rash Neuro : No Weakness, No Numbness, No Paresthesias, No Loss of Consciousness, No Dizziness, No Headache Psych : No Anxiety/Panic, stop taking medications, denies SI or HI, patient believes she is anorexic Heme/Lymph: No Bruising, No Bleeding,No Lymphadenopathy Endocrine : No Polyuria, No Polydipsia, No Temperature Intolerance [facility] Past Medical History Medical History Bipolar disorder Neck pain Murmur GERD (gastroesophageal reflux disease) Hypothyroidism Irritable bowel syndrome (IBS) Hyperlipidemia Anxiety and depression Post traumatic stress disorder (PTSD) Dissociative identity disorder Surgical History Hx of colonoscopy History of total thyroidectomy Social History Social History Are you a primary day care assistant to a significant other at home: No Do you presently have visiting nurse or other home services: Yes ([employer] 2 x week) Patient Tobacco Use Status: Former Tobacco user Quit Date: 2001 Tobacco use type: Cigarette Physical Exam Const: Other: Appearance: Alert. Oriented X3. No acute distress. Eyes: Pupils equal, round and reactive to light. ENT: Pharynx normal. Neck: Her neck with her chin touch in her chest, per patient chronic. CVS: Normal heart rate and rhythm. Pulses normal. Normal S1 and S2 Respiratory: No respiratory distress. Breath sounds normal. No Wheezing. No rales Abdomen: Soft and nontender. No rigidity. No distention. Skin: Skin warm and dry. Normal skin color. Normal skin turgor. Extremities: No lower extremity edema. No Lacerations. No Rash Neuro: Oriented X 3. No motor deficit. No sensory deficit. Moving all extremities. No slurred speech. CN 2 through 12 grossly intact Psych: calm, cooperative, bizarre affect Course Course Course Narrative: -patient's labs pending -care team consult pending - observation started at 18:15 Medical Decision Making Differential Diagnosis Differential Diagnoses: The differential diagnosis associated with the presentation includes (Anxiety, depression, bipolar disorder, psychosis) Admission/Observation Consideration of admission/observation: Escalation of care including admission/observation considered (Patient will remain under observation in the Behavioral Health pod, until the care team evaluate the patient and determines disposition) Critical Care Time Critical Care Time Critical Care Time: Yes Total Critical Care Time: 30 Attestation: I have personally provided critical care time. Time includes review of lab data, radiology results, discussion with consultants, and monitoring for potential decompensation. Intervention performed as documented. Discharge Plan Discharge Clinical Impression: Bipolar disorder Patient Disposition: Still a Patient Prescriptions: No Action ziprasidone HCl 80 mg capsule 1 cap PO BID clonazepam 0.5 mg tablet 1 tab PO TID PRN (Reason: anxiety) simvastatin 40 mg tablet 1 tab PO DAILY lamotrigine 25 mg tablet 2 tab PO DAILY levothyroxine 100 mcg tablet 1 tab PO DAILY omeprazole 20 mg capsule,delayed release(DR/EC) 1 cap PO DAILY trihexyphenidyl 2 mg tablet 1 tab PO QAM lamotrigine 100 mg tablet 2 tab PO BEDTIME multivitamin Tablet 1 tab PO DAILY cholecalciferol (vitamin D3) [Vitamin D3] 25 mcg (1,000 unit) Capsule 25 mcg PO DAILY coenzyme Q10 [CoQ-10] 100 mg Capsule 100 mg PO DAILY
[2023-09-29 18:49] LABS: Appearance Urine Clear; Color Urine Yellow; Glucose Urine UA Negative (Negative); Leukocyte Esterase Urine Small (1+) (Negative); Nitrite Urine Negative (Negative); Specific Gravity - Urine <= 1.005 (1.005-1.025); UMIC TRIGGER UACC YES; Urine Blood Trace (Negative); Urine Ketones Trace mg/dL (Negative); Urine Protein Negative (Neg-Trace)
[2023-09-29 18:54] LABS: Amphetamine Screen Urine Not Detected (Not Detect); Barbiturates, Urine Not Detected (Not Detect); Benzodiazepines Screen Urine Not Detected (Not Detect); Cannabinoid Screen Urine Not Detected (Not Detect); Cocaine Screen Urine Not Detected (Not Detect); Fentanyl, urine Not Detected (Not Detect); Opiate Screen Urine Not Detected (Not Detect); Phencyclidine Screen Urine Not Detected (Not Detect)
[2023-09-29 19:09] LABS: Bacteria Urine None Seen (None Seen); Hyaline Casts Urine 0-2 /LPF (0-2); RBC Urine 0-2 /HPF (0-2); Squamous Epithelial Cell Urine 0-2 /HPF (0-2); UACC Culture Trigger YES; WBC Urine 0-5 /HPF (0-5)
[2023-09-29 20:05] LABS: MANUAL DIFF FLAG NO
[2023-09-29 20:06] LABS: Basophils Percent Auto 0.4 % (0-2); Eosinophils Absolute Auto 0.1 X10*3/uL (0.0-0.4); Eosinophils Percent Auto 1.1 % (0-4); Imm Gran Abs Auto 0.02 X10*3/uL (0.00-0.03); Imm Gran Pct Auto 0.3 % (0.0-0.4); Lymphocytes Absolute Auto 1.6 X10*3/uL (1.2-4.9); Lymphocytes Percent Auto 20.3 % (20-40); Mean Corpuscular HGB Conc 35.3 g/dl (31.0-35.0); Mean Corpuscular Hemoglobin 30.8 pg (27.0-33.0); Mean Corpuscular Volume 87.2 fL (80.0-98.0); Mean Platelet Volume 8.8 fL (9.4-12.3); Monocytes Absolute Auto 0.5 X10*3/uL (0.1-1.2); Monocytes Percent Auto 6.9 % (2-11); Neutrophils Absolute Auto 5.6 x10*3/uL (2.0-8.3); Platelet Count 216 X10*3/uL (160-400); White Blood Count 7.8 X10*3/uL (4.8-10.8)
[2023-09-29 20:26] LABS: Alanine Aminotransferase 22 U/L (0-31); Albumin Level 4.5 g/dL (3.5-5.0); Alkaline Phosphatase 31 U/L (39-117); Anion Gap 16 (12-20); Aspartate Amino Transferase 33 U/L (5-31); Bilirubin Direct 0.2 mg/dL (0.0-0.5); Bilirubin Total 0.7 mg/dL (0.0-1.0); Blood Urea Nitrogen 13 mg/dL (9-16); Calcium 9.7 mg/dL (8.4-10.2); Carbon Dioxide 24 mmol/L (22-29); Chloride 103 mmol/L (96-108); Creatinine Clr Calc Pharmacy 31.5; Estimated Glomerular Filt Rate 33; Ethanol < 10 mg/dL; Glucose Random 99 mg/dL (60-115); Potassium 3.3 mmol/L (3.3-5.1); Sodium 140 mmol/L (135-145); Total Protein 6.8 g/dL (6.5-8.0)
[2023-09-29 20:27] LABS: Acetaminophen LAB < 17 mcg/mL (<30); Salicylate < 5.0 mg/dL (15-30)
--- NOTE | 2023-09-29 22:44 | PHA.MEDREC ---
Pharmacy Consult ? Medication Reconciliation Pharmacy has reviewed the medication reconciliation completed by Megan.
[2023-09-29] MEDS: Ziprasidone 20 MG CAPSULE PO (23:10)
[2023-09-29] MEDS: clonazePAM 0.5 MG TABLET PO (23:10)
[2023-09-29] MEDS: Ziprasidone 80 MG CAPSULE PO (23:10)
[2023-09-29] MEDS: lamoTRIgine 100 MG TABLET 200 MG PO (23:10)
--- NOTE | 2023-09-30 | ECG_ITS ---
Test Reason : PROLONG QT Blood Pressure : / mmHG Vent. Rate : 060 BPM Atrial Rate : 060 BPM P-R Int : 162 ms QRS Dur : 082 ms QT Int : 444 ms P-R-T Axes : 062 -09 027 degrees QTc Int : 444 ms Normal sinus rhythm Prolonged QT Abnormal ECG When compared with ECG of 15-MAR-2022 11:25, QT has lengthened Referred By: Kathrin Sims Electronically Signed By:ELLIE BALL MD
[2023-09-30] MEDS: Levothyroxine Sodium 125 MCG TABLET PO (05:23)
--- NOTE | 2023-09-30 05:47 | PC.NURSE ---
Patient slept through the night, no distress observed/reported, no behavior concerns at this time, medication compliant, care consult ordered for paranoia, pending evaluation in the morning, labs completed/resulted, VSS, will continue to monitor.
[2023-09-30 05:53] VITALS: BP 123/69; PULSE 78; RESP 18; O2SAT 96
--- NOTE | 2023-09-30 07:02 | PC.NURSE ---
Resumed care of patient, she is currently resting comfortably in bed. Awaiting breakfast at this time. Awaiting to be seen by care team, 15 minute checks maintained.
[2023-09-30] MEDS: lamoTRIgine 25 MG TABLET 50 MG PO (07:52)
[2023-09-30] MEDS: Atorvastatin Calcium 20 MG TABLET PO (07:52)
[2023-09-30] MEDS: Cholecalciferol (Vitamin D3) 25 MCG TABLET PO (07:53)
[2023-09-30] MEDS: Multivitamin TABLET 1 TAB PO (07:53)
[2023-09-30] MEDS: Ziprasidone 80 MG CAPSULE PO ×2 (09:45→20:49)
[2023-09-30] MEDS: Trihexyphenidyl HCL 2 MG TABLET PO (09:45)
--- NOTE | 2023-09-30 09:54 | PC.NURSE ---
Pt is in and out of bathroom multiple times throughout morning, needing to constantly wash her hands, care team attempted multiple times to talk with patient who was in the bathroom. Staff had to remove paper towels from bathroom d/t pt using all of them, and then placing them all over the bathroom. Other patients were not able to use bathroom d/t patient being in bathroom so much, will continue to discuss limits with patient
[2023-09-30 11:13] LABS: IDNOW Serial# BCCEAD1C
[2023-09-30 11:14] LABS: COVID-19 Test Negative (Negative)
[2023-09-30 12:35] VITALS: BP 138/78; PULSE 80; RESP 18; TEMP 36.4; O2SAT 98
--- NOTE | 2023-09-30 13:10 | PHA.MEDREC ---
Pharmacy Consult ? Medication Reconciliation Pharmacy has completed the medication reconciliation.pharmacy has reviewed the med rec done by nursing
[2023-09-30] MEDS: clonazePAM 0.5 MG TABLET PO (16:27)
[2023-09-30] MEDS: Omeprazole 20 MG CAPSULE.DR PO (16:28)
[2023-09-30 18:00] VITALS: BP 142/65; PULSE 85; RESP 16; TEMP 37.1; O2SAT 96
[2023-09-30] MEDS: lamoTRIgine 100 MG TABLET 200 MG PO (20:49)
[2023-09-30] MEDS: lamoTRIgine 25 MG TABLET PO (20:50)
[2023-09-30] MEDS: Ziprasidone 20 MG CAPSULE PO (20:51)
--- NOTE | 2023-10-01 | ECG_ITS ---
Test Reason : qtc check Blood Pressure : / mmHG Vent. Rate : 070 BPM Atrial Rate : 070 BPM P-R Int : 176 ms QRS Dur : 082 ms QT Int : 424 ms P-R-T Axes : 077 -07 036 degrees QTc Int : 457 ms Normal sinus rhythm Normal ECG When compared with ECG of 30-SEP-2023 11:46, QT has shortened Referred By: Jhon Carrion Electronically Signed By:ELLIE BALL MD
[2023-10-01] MEDS: clonazePAM 0.5 MG TABLET PO ×2 (00:28→20:17)
[2023-10-01] MEDS: Levothyroxine Sodium 125 MCG TABLET PO (06:47)
[2023-10-01] MEDS: Acetaminophen 325 MG TABLET 650 MG PO (06:47)
[2023-10-01 08:00] LABS: Alanine Aminotransferase 22 U/L (0-31); Albumin Level 4.3 g/dL (3.5-5.0); Alkaline Phosphatase 29 U/L (39-117); Anion Gap 14 (12-20); Aspartate Amino Transferase 25 U/L (5-31); Bilirubin Total 0.5 mg/dL (0.0-1.0); Blood Urea Nitrogen 16 mg/dL (9-16); Calcium 9.8 mg/dL (8.4-10.2); Carbon Dioxide 25 mmol/L (22-29); Chloride 109 mmol/L (96-108); Cholesterol 109 mg/dL (<200); Creatinine Clr Calc Pharmacy 30.9; Estimated Glomerular Filt Rate 32; Glucose Fasting 129 mg/dL (60-99); HDL Cholesterol 42 mg/dL (>40); LDL Cholesterol Calculated 52 mg/dL (<100); Potassium 3.8 mmol/L (3.3-5.1); Sodium 144 mmol/L (135-145); Total Protein 6.7 g/dL (6.5-8.0); Triglycerides 76 mg/dL (<150)
[2023-10-01] MEDS: Cholecalciferol (Vitamin D3) 25 MCG TABLET PO (08:04)
[2023-10-01] MEDS: Multivitamin TABLET 1 TAB PO (08:04)
[2023-10-01] MEDS: Ziprasidone 80 MG CAPSULE PO ×2 (08:04→20:18)
[2023-10-01] MEDS: Atorvastatin Calcium 20 MG TABLET PO (08:04)
[2023-10-01] MEDS: lamoTRIgine 25 MG TABLET 50 MG PO (08:04)
[2023-10-01] MEDS: Trihexyphenidyl HCL 2 MG TABLET PO (08:04)
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
[2023-10-01 08:46] VITALS: BP 128/86; PULSE 84; RESP 16; TEMP 36.1; O2SAT 97
--- NOTE | 2023-10-01 13:42 | PC.NURSE ---
THIS PT. TOLD THIS NURSE THAT SHE IS HEARING VOICES IN HER HEAD THAT ARE THE PERSONALITIES. THEY ARE TELLING ME TO STRANGLE MYSELF WITH A PILLOW . THIS NURSE SENT A TEXT TO HER PROVIDER TO REQUEST A 1;1 STAFF, WHICH DR. RIVERA PROVIDED. 1:1 STAFF NOW WITH THIS PATIENT.
--- NOTE | 2023-10-01 15:24 | MHC.CLN ---
NUTRITION CONSULT FOR ANOREXIA AND WEIGHT LOSS. PATIENT REPORTS 10# WEIGHT LOSS IN ONE WEEK. LIMITED WEIGHT HX. 03/12/22=58.967 KG; 09/29/23=63.049 KG. SHOWS MODERATE WEIGHT GAIN X 1.5 YEARS. ADMITTED WITH LACTOSE FREE DIET AND EGG ALLERGY. PER PATIENT, CANNOT DRINK FLUID MILK. ALL OTHER DAIRY, INCLUDING ICE CREAM AND CHEESES, ARE OK. DISCONTINUED LACTOSE FREE DIET. ASKED NURSE ABOUT EGG ALLERGY. EGG ALLERGY FOR WHOLE EGGS (OMELETS, SCRAMBLED EGGS, HARD COOKED EGGS, EGG SALAD). EGGS ARE OK IN BAKED GOODS. PATIENT STATED THAT SHE LIKES GRILLED CHEESE AND LIKES PANCAKES. DIET CHANGE/CLARIFICATION SHOULD ALLOW FOR MORE CHOICES AND BETTER ACCEPTANCE OF FOOD. DINING SERVICES NOTIFIED. ADDING MAGIC CUP BID SINCE LIKES ICE CREAM. SUPPLEMENT PROVIDES ADDITIONAL 580 KCALS, 18 G PROTEIN. MONITOR WEEKLY FOR DIET ACCEPTANCE AND INTAKE.
[2023-10-01 20:08] VITALS: BP 164/87; PULSE 86; RESP 16; TEMP 37.1; O2SAT 97
[2023-10-01] MEDS: lamoTRIgine 100 MG TABLET 200 MG PO (20:18)
[2023-10-01] MEDS: Ziprasidone 20 MG CAPSULE PO (20:18)
[2023-10-01] MEDS: lamoTRIgine 25 MG TABLET PO (20:18)
[2023-10-01] MEDS: Milk of Magnesia 30 ML ORAL.SUSP PO (21:45)
[2023-10-02] MEDS: Levothyroxine Sodium 125 MCG TABLET PO (06:27)
[2023-10-02 07:00] VITALS: BMI 21.9
[2023-10-02 08:00] VITALS: BP 142/64; PULSE 86; RESP 16; TEMP 36.8; O2SAT 97
[2023-10-02] MEDS: Atorvastatin Calcium 20 MG TABLET PO (08:18)
[2023-10-02] MEDS: Ziprasidone 80 MG CAPSULE PO ×2 (08:18→20:51)
[2023-10-02] MEDS: Trihexyphenidyl HCL 2 MG TABLET PO (08:19)
[2023-10-02] MEDS: lamoTRIgine 25 MG TABLET 50 MG PO (08:19)
[2023-10-02] MEDS: Multivitamin TABLET 1 TAB PO (08:19)
[2023-10-02] MEDS: Cholecalciferol (Vitamin D3) 25 MCG TABLET PO (08:19)
--- NOTE | 2023-10-02 11:01 | HO.PSYCHPN ---
Subjective Subjective Date of Service: 10/02/23 Reason For Visit: Mood Disorder Subjective Notes: Conditional Voluntary Interim History: The nursing staff reported the patient had complained of constipation. She has been pleasant and in did EMS's 4 she admitted that the voices were telling her to smooth her herself and that is why we put her on one-to-one. The staff has noticed that the patient have OCD behaviors such as hand washing and some ritualistic behavior in the bathroom. On interview the patient denies new symptoms she is feels much better, we decided to lower her observation to 5 minutes checks. Mental Status Exam Mental Status Exam Patient Appearance: Appropriate Patient Orientation: Person, Place, Time and Situation Level of Consciousness: Awake and Appropriate Patient Behavior: Guarded and Passive Mood Description: Withdrawn Affect Description: Constricted Patient Cognition Impaired: Yes Ability to Follow Directions: Good Speech Pattern: Clear Hallucinations: Auditory Delusions: Paranoid Ideation Thought Process: Linear Thought Content: positive for Circumstantial Judgement: Fair Diagnostics Vital Signs (24Hr): Vital Signs - 24 hr 10/01/23 20:08 10/02/23 08:00 Temperature 98.7 F 98.2 F Pulse Rate 86 86 Respiratory Rate 16 16 Blood Pressure 164/87 H 142/64 H Pulse Oximetry 97 97 Oxygen Delivery Method Room Air Room Air BMI result Body Mass Index 24.6 Labs 09/29/23 20:01 10/01/23 07:41 Labs: Laboratory Results - last 48 hr 09/30/23 10/01/23 10:52 07:41 Sodium 144 Potassium 3.8 Chloride 109 H Carbon Dioxide 25 Anion Gap 14 BUN 16 Creatinine 1.62 H Estim Creat Clear Calc 30.9 Estimated GFR 32 Fasting Glucose 129 H Calcium 9.8 Total Bilirubin 0.5 AST 25 ALT 22 Alkaline Phosphatase 29 L Total Protein 6.7 Albumin 4.3 Triglycerides 76 Cholesterol 109 LDL Cholesterol, Calc 52 HDL Cholesterol 42 COVID-19 ([facility]EDE) Negative COVID-19 Clin Com See Note Medications Medications Current Medications Acetaminophen (Acetaminophen 325 Mg Tablet) 650 mg PO Q6H PRN PRN Reason: Headache/Pain Mild Scale (1-3) Last Admin: 10/01/23 06:47 Dose: 650 mg Al Hydroxide/Mg Hydroxide (Magnesium Hydrox/Alum Hydrox 30 Ml Oral.Susp) 30 ml PO Q6H PRN PRN Reason: Heartburn/Nausea Atorvastatin Calcium (Atorvastatin Calcium 20 Mg Tablet) 20 mg PO DAILY [facility] Last Admin: 10/02/23 08:18 Dose: 20 mg Calcium Carbonate (Calcium Carbonate 500 Mg Tablet) 500 mg PO DAILY [facility] Last Admin: 10/02/23 08:18 Dose: 500 mg Clonazepam (Clonazepam 0.5 Mg Tablet) 0.5 mg PO TID PRN PRN Reason: anxiety Last Admin: 10/01/23 20:17 Dose: 0.5 mg Hydroxyzine HCl (Hydroxyzine Hcl 25 Mg Tablet) 25 mg PO Q6H PRN PRN Reason: Anxiety Lamotrigine (Lamotrigine 25 Mg Tablet) 50 mg PO DAILY [facility] Last Admin: 10/02/23 08:19 Dose: 50 mg Lamotrigine (Lamotrigine 25 Mg Tablet) 25 mg PO DAILY@1900 [facility] Last Admin: 10/01/23 20:18 Dose: 25 mg Lamotrigine (Lamotrigine 100 Mg Tablet) 200 mg PO BEDTIME [facility] Last Admin: 10/01/23 20:18 Dose: 200 mg Levothyroxine Sodium (Levothyroxine Sodium 125 Mcg Tablet) 125 mcg PO DAILY@0600 [facility] Last Admin: 10/02/23 06:27 Dose: 125 mcg Magnesium Hydroxide (Milk Of Magnesia 30 Ml Oral.Susp) 30 ml PO TID PRN PRN Reason: Constipation Multivitamins/Vitamin C (Multivitamin Tablet) 1 tab PO DAILY [facility] Last Admin: 10/02/23 08:19 Dose: 1 tab Omeprazole (Omeprazole 20 Mg Capsule.Dr) 20 mg PO DAILY@1700 [facility] Last Admin: 10/01/23 18:55 Dose: Not Given Trazodone HCl (Trazodone Hcl 50 Mg Tablet) 50 mg PO BEDTIME MRX1 PRN PRN Reason: Insomnia Trihexyphenidyl HCl (Trihexyphenidyl Hcl 2 Mg Tablet) 2 mg PO DAILY [facility] Last Admin: 10/02/23 08:19 Dose: 2 mg Vitamin D (Cholecalciferol (Vitamin D3) 25 Mcg Tablet) 25 mcg PO DAILY [facility] Last Admin: 10/02/23 08:19 Dose: 25 mcg Ziprasidone (Ziprasidone 20 Mg Capsule) 20 mg PO BEDTIME [facility] Last Admin: 10/01/23 20:18 Dose: 20 mg Ziprasidone (Ziprasidone 80 Mg Capsule) 80 mg PO BID [facility] Last Admin: 10/02/23 08:18 Dose: 80 mg Allergies Allergies Allergy/AdvReac Type Severity Reaction Status Date / Time Penicillins [PENICILLINS] Allergy Severe HIVES Verified 03/12/22 08:56 sulfamethoxazole Allergy Severe DIARRHEA Verified 03/12/22 08:56 [From BACTRIM] trimethoprim [From BACTRIM] Allergy Severe DIARRHEA Verified 03/12/22 08:56 aripiprazole [From ABILIFY] Allergy Intermediate ATAXIA Verified 03/12/22 08:56 aspirin [ASPIRIN] Allergy Intermediate STOMACH Verified 03/12/22 08:56 CRAMPS benztropine [From COGENTIN] Allergy Intermediate CONFUSION, Verified 03/12/22 08:56 memory loss bupropion [BUPROPION] Allergy Intermediate DIZZINESS Verified 03/12/22 08:56 erythromycin base Allergy Intermediate GI UPSET Verified 03/12/22 08:56 [ERYTHROMYCIN BASE] ibuprofen [From MOTRIN] Allergy Intermediate STOMACH Verified 03/12/22 08:56 CRAMPS olanzapine [From ZYPREXA] Allergy Intermediate TONGUE Verified 03/12/22 08:56 MOVEMENTS perphenazine [From TRILAFON] Allergy Intermediate ARM AND Verified 03/12/22 08:56 LEG MOVEMENTS, FALL risperidone [From RISPERDAL] Allergy Intermediate TONGUE Verified 03/12/22 08:56 MOVEMENT egg AdvReac Stomach Verified 09/29/23 18:15 Upset From INDERAL Allergy Intermediate WHEEZING Uncoded 03/12/22 08:56 Assessment & Plan Assessment & Plan (1) Bipolar disorder: Status: Acute Code(s): F31.9 - Bipolar disorder, unspecified Plan The patient is an elderly female, single, with no children on disability for mental illness who became non compliant on her medications for a few days and decompensate with depressive symptoms with suicidal ideation. She was assessed by crisis and transferring to this facility for psychiatric stabilization. Plan 1. Gather collateral information. 2. Restart Geodon and also other psychotropics as per medication reconciliation form. 3. Hospitalist referral. 4. EKG came back normal with normal QTC elongation we will continue with Geodon. 5. Reassessment results. 6. Contact primary psychiatrist. Reason for continued inpatient stay Substantial Risk for: inability to function, rapid decompensation and med/psych decompensation Time Spent With Patient Time: Total time managing care of this patient today __20__ minutes.
[2023-10-02] MEDS: Omeprazole 20 MG CAPSULE.DR PO (16:38)
[2023-10-02 19:35] VITALS: BP 140/81; PULSE 87; RESP 16; TEMP 35.7; O2SAT 95
[2023-10-02] MEDS: lamoTRIgine 100 MG TABLET 200 MG PO (20:51)
[2023-10-02] MEDS: Ziprasidone 20 MG CAPSULE PO (20:51)
[2023-10-02] MEDS: lamoTRIgine 25 MG TABLET PO (20:51)
[2023-10-02] MEDS: clonazePAM 0.5 MG TABLET PO (20:51)
[2023-10-03] MEDS: Levothyroxine Sodium 125 MCG TABLET PO (06:19)
[2023-10-03 07:50] VITALS: BP 123/59; PULSE 82; RESP 16; TEMP 37; O2SAT 98
[2023-10-03] MEDS: lamoTRIgine 25 MG TABLET 50 MG PO (08:53)
[2023-10-03] MEDS: Trihexyphenidyl HCL 2 MG TABLET PO (08:53)
[2023-10-03] MEDS: Ziprasidone 80 MG CAPSULE PO ×2 (08:53→20:37)
[2023-10-03] MEDS: Atorvastatin Calcium 20 MG TABLET PO (08:53)
[2023-10-03] MEDS: Cholecalciferol (Vitamin D3) 25 MCG TABLET PO (08:54)
[2023-10-03] MEDS: Multivitamin TABLET 1 TAB PO (08:54)
[2023-10-03] MEDS: clonazePAM 0.5 MG TABLET PO (09:23)
[2023-10-03] MEDS: Acetaminophen 325 MG TABLET 650 MG PO (09:40)
--- NOTE | 2023-10-03 10:04 | P.PNPSI_ITS ---
Subjective Subjective Date of Service: 10/03/23 Reason For Visit: Mood Disorder Subjective Notes: Conditional Voluntary Interim History: The nursing staff reported the patient had been feeling safe in the unit, she has been medication and meal compliant. The staff reported that she complained of auditory hallucinations but she is not paying attention to that. She slept well last night. Yesterday the director social spoke with her and she reported that she has an eating disorder. On interview the patient denies new symptoms she agreed increase Geodon up to 100 mg p.o. b.i.d. since she is complaining of increased AH. Mental Status Exam Mental Status Exam Patient Appearance: Appropriate Patient Orientation: Person and Situation Level of Consciousness: Awake and Appropriate Patient Behavior: Guarded, Cooperative and Passive Mood Description: Withdrawn Affect Description: Constricted Patient Cognition Impaired: Yes Ability to Follow Directions: Good Speech Pattern: Clear Hallucinations: Auditory Delusions: Paranoid Ideation Thought Process: Distracted Thought Content: positive for [place] and positive for Circumstantial Judgement: Fair Diagnostics Vital Signs (24Hr): Vital Signs - 24 hr 10/02/23 19:35 10/03/23 07:50 Temperature 96.3 F L 98.6 F Pulse Rate 87 82 Respiratory Rate 16 16 Blood Pressure 140/81 H 123/59 L Pulse Oximetry 95 98 Oxygen Delivery Method Room Air Room Air BMI result Body Mass Index 21.9 Labs 09/29/23 20:01 10/01/23 07:41 Medications Medications Current Medications Acetaminophen (Acetaminophen 325 Mg Tablet) 650 mg PO Q6H PRN PRN Reason: Headache/Pain Mild Scale (1-3) Last Admin: 10/03/23 09:40 Dose: 650 mg Al Hydroxide/Mg Hydroxide (Magnesium Hydrox/Alum Hydrox 30 Ml Oral.Susp) 30 ml PO Q6H PRN PRN Reason: Heartburn/Nausea Atorvastatin Calcium (Atorvastatin Calcium 20 Mg Tablet) 20 mg PO DAILY [facility] Last Admin: 10/03/23 08:53 Dose: 20 mg Calcium Carbonate (Calcium Carbonate 500 Mg Tablet) 500 mg PO DAILY [facility] Last Admin: 10/03/23 08:54 Dose: 500 mg Clonazepam (Clonazepam 0.5 Mg Tablet) 0.5 mg PO TID PRN PRN Reason: anxiety Last Admin: 10/03/23 09:23 Dose: 0.5 mg Hydroxyzine HCl (Hydroxyzine Hcl 25 Mg Tablet) 25 mg PO Q6H PRN PRN Reason: Anxiety Lamotrigine (Lamotrigine 25 Mg Tablet) 50 mg PO DAILY [facility] Last Admin: 10/03/23 08:53 Dose: 50 mg Lamotrigine (Lamotrigine 25 Mg Tablet) 25 mg PO DAILY@1900 [facility] Last Admin: 10/02/23 20:51 Dose: 25 mg Lamotrigine (Lamotrigine 100 Mg Tablet) 200 mg PO BEDTIME [facility] Last Admin: 10/02/23 20:51 Dose: 200 mg Levothyroxine Sodium (Levothyroxine Sodium 125 Mcg Tablet) 125 mcg PO DAILY@0600 [facility] Last Admin: 10/03/23 06:19 Dose: 125 mcg Magnesium Hydroxide (Milk Of Magnesia 30 Ml Oral.Susp) 30 ml PO TID PRN PRN Reason: Constipation Multivitamins/Vitamin C (Multivitamin Tablet) 1 tab PO DAILY [facility] Last Admin: 10/03/23 08:54 Dose: 1 tab Omeprazole (Omeprazole 20 Mg Capsule.Dr) 20 mg PO DAILY@1700 [facility] Last Admin: 10/02/23 16:38 Dose: 20 mg Trazodone HCl (Trazodone Hcl 50 Mg Tablet) 50 mg PO BEDTIME MRX1 PRN PRN Reason: Insomnia Trihexyphenidyl HCl (Trihexyphenidyl Hcl 2 Mg Tablet) 2 mg PO DAILY [facility] Last Admin: 10/03/23 08:53 Dose: 2 mg Vitamin D (Cholecalciferol (Vitamin D3) 25 Mcg Tablet) 25 mcg PO DAILY [facility] Last Admin: 10/03/23 08:54 Dose: 25 mcg Ziprasidone (Ziprasidone 20 Mg Capsule) 20 mg PO BEDTIME [facility] Last Admin: 10/02/23 20:51 Dose: 20 mg Ziprasidone (Ziprasidone 80 Mg Capsule) 80 mg PO BID [facility] Last Admin: 10/03/23 08:53 Dose: 80 mg Allergies Allergies Allergy/AdvReac Type Severity Reaction Status Date / Time Penicillins [PENICILLINS] Allergy Severe HIVES Verified 03/12/22 08:56 sulfamethoxazole Allergy Severe DIARRHEA Verified 03/12/22 08:56 [From BACTRIM] trimethoprim [From BACTRIM] Allergy Severe DIARRHEA Verified 03/12/22 08:56 aripiprazole [From ABILIFY] Allergy Intermediate ATAXIA Verified 03/12/22 08:56 aspirin [ASPIRIN] Allergy Intermediate STOMACH Verified 03/12/22 08:56 CRAMPS benztropine [From COGENTIN] Allergy Intermediate CONFUSION, Verified 03/12/22 08:56 memory loss bupropion [BUPROPION] Allergy Intermediate DIZZINESS Verified 03/12/22 08:56 erythromycin base Allergy Intermediate GI UPSET Verified 03/12/22 08:56 [ERYTHROMYCIN BASE] ibuprofen [From MOTRIN] Allergy Intermediate STOMACH Verified 03/12/22 08:56 CRAMPS olanzapine [From ZYPREXA] Allergy Intermediate TONGUE Verified 03/12/22 08:56 MOVEMENTS perphenazine [From TRILAFON] Allergy Intermediate ARM AND Verified 03/12/22 08:56 LEG MOVEMENTS, FALL risperidone [From RISPERDAL] Allergy Intermediate TONGUE Verified 03/12/22 08:56 MOVEMENT egg AdvReac Stomach Verified 09/29/23 18:15 Upset From INDERAL Allergy Intermediate WHEEZING Uncoded 03/12/22 08:56 Assessment & Plan Assessment & Plan (1) Bipolar disorder: Status: Acute Code(s): F31.9 - Bipolar disorder, unspecified Plan The patient is an elderly female, single, with no children on disability for mental illness who became non compliant on her medications for a few days and decompensate with depressive symptoms with suicidal ideation. She was assessed by crisis and transferring to this facility for psychiatric stabilization. Plan 1. Gather collateral information. 2. Restart Geodon and also other psychotropics as per medication reconciliation form. 3. Hospitalist referral. 4. EKG came back normal with normal QTC elongation we will continue with Geodon. 5. Reassessment results. 6. Contact primary psychiatrist. 7. Increase Geodon up to 100 mg p.o. b.i.d. on Oct 03. Reason for continued inpatient stay Substantial Risk for: inability to function, rapid decompensation and med/psych decompensation Time Spent With Patient Time: Total time managing care of this patient today _20___ minutes.
[2023-10-03] MEDS: Omeprazole 20 MG CAPSULE.DR PO (16:23)
[2023-10-03 19:35] VITALS: BP 126/77; PULSE 77; RESP 18; TEMP 36.2; O2SAT 96
[2023-10-03] MEDS: lamoTRIgine 100 MG TABLET 200 MG PO (20:36)
[2023-10-03] MEDS: Ziprasidone 20 MG CAPSULE PO (20:36)
[2023-10-03] MEDS: lamoTRIgine 25 MG TABLET PO (20:37)
[2023-10-04] MEDS: Levothyroxine Sodium 125 MCG TABLET PO (04:59)
--- NOTE | 2023-10-04 08:38 | HO.PSYCHPN ---
Subjective Subjective Date of Service: 10/04/23 Reason For Visit: Mood Disorder Subjective Notes: Conditional Voluntary Interim History: The nursing staff reported the patient have complain of sporadic auditory hallucinations and chronic back pain but she denies suicidal ideation. She was for Tylenol p.r.n. with for improvement also she received Klonopin p.r.n. last night. She slept well last night and she stated that she was less fearful. On interview the patient reports still sporadic auditory hallucinations today we increased the Geodon up to 100 mg p.o. b.i.d. and we will reassess. No side effects with increased of Geodon. In the morning, she had an unwitnessed fall, no head trauma, vs stable, on 5 min check. Mental Status Exam Mental Status Exam Patient Appearance: Appropriate Patient Orientation: Person and Situation Level of Consciousness: Awake and Appropriate Patient Behavior: Guarded and Passive Mood Description: Withdrawn Affect Description: Constricted Patient Cognition Impaired: Yes Ability to Follow Directions: Good Speech Pattern: Clear and Appropriate Hallucinations: Auditory Delusions: Not Present Thought Process: Distracted Thought Content: positive for [place] and positive for Circumstantial Judgement: Fair Diagnostics Vital Signs (24Hr): Vital Signs - 24 hr 10/03/23 19:35 Temperature 97.1 F Pulse Rate 77 Respiratory Rate 18 Blood Pressure 126/77 Pulse Oximetry 96 Oxygen Delivery Method Room Air BMI result Body Mass Index 21.9 Labs 09/29/23 20:01 10/01/23 07:41 Medications Medications Current Medications Acetaminophen (Acetaminophen 325 Mg Tablet) 650 mg PO Q6H PRN PRN Reason: Headache/Pain Mild Scale (1-3) Last Admin: 10/03/23 09:40 Dose: 650 mg Al Hydroxide/Mg Hydroxide (Magnesium Hydrox/Alum Hydrox 30 Ml Oral.Susp) 30 ml PO Q6H PRN PRN Reason: Heartburn/Nausea Atorvastatin Calcium (Atorvastatin Calcium 20 Mg Tablet) 20 mg PO DAILY [facility] Last Admin: 10/03/23 08:53 Dose: 20 mg Calcium Carbonate (Calcium Carbonate 500 Mg Tablet) 500 mg PO DAILY [facility] Last Admin: 10/03/23 08:54 Dose: 500 mg Clonazepam (Clonazepam 0.5 Mg Tablet) 0.5 mg PO TID PRN PRN Reason: anxiety Last Admin: 10/03/23 09:23 Dose: 0.5 mg Hydroxyzine HCl (Hydroxyzine Hcl 25 Mg Tablet) 25 mg PO Q6H PRN PRN Reason: Anxiety Lamotrigine (Lamotrigine 25 Mg Tablet) 50 mg PO DAILY [facility] Last Admin: 10/03/23 08:53 Dose: 50 mg Lamotrigine (Lamotrigine 25 Mg Tablet) 25 mg PO DAILY@1900 [facility] Last Admin: 10/03/23 20:37 Dose: 25 mg Lamotrigine (Lamotrigine 100 Mg Tablet) 200 mg PO BEDTIME [facility] Last Admin: 10/03/23 20:36 Dose: 200 mg Levothyroxine Sodium (Levothyroxine Sodium 125 Mcg Tablet) 125 mcg PO DAILY@0600 [facility] Last Admin: 10/04/23 04:59 Dose: 125 mcg Magnesium Hydroxide (Milk Of Magnesia 30 Ml Oral.Susp) 30 ml PO TID PRN PRN Reason: Constipation Multivitamins/Vitamin C (Multivitamin Tablet) 1 tab PO DAILY [facility] Last Admin: 10/03/23 08:54 Dose: 1 tab Omeprazole (Omeprazole 20 Mg Capsule.Dr) 20 mg PO DAILY@1700 [facility] Last Admin: 10/03/23 16:23 Dose: 20 mg Trazodone HCl (Trazodone Hcl 50 Mg Tablet) 50 mg PO BEDTIME MRX1 PRN PRN Reason: Insomnia Trihexyphenidyl HCl (Trihexyphenidyl Hcl 2 Mg Tablet) 2 mg PO DAILY [facility] Last Admin: 10/03/23 08:53 Dose: 2 mg Vitamin D (Cholecalciferol (Vitamin D3) 25 Mcg Tablet) 25 mcg PO DAILY [facility] Last Admin: 10/03/23 08:54 Dose: 25 mcg Ziprasidone (Ziprasidone 80 Mg Capsule) 80 mg PO BID [facility] Last Admin: 10/03/23 20:37 Dose: 80 mg Ziprasidone (Ziprasidone 20 Mg Capsule) 20 mg PO BID [facility] Last Admin: 10/03/23 20:36 Dose: 20 mg Allergies Allergies Allergy/AdvReac Type Severity Reaction Status Date / Time Penicillins [PENICILLINS] Allergy Severe HIVES Verified 03/12/22 08:56 sulfamethoxazole Allergy Severe DIARRHEA Verified 03/12/22 08:56 [From BACTRIM] trimethoprim [From BACTRIM] Allergy Severe DIARRHEA Verified 03/12/22 08:56 aripiprazole [From ABILIFY] Allergy Intermediate ATAXIA Verified 03/12/22 08:56 aspirin [ASPIRIN] Allergy Intermediate STOMACH Verified 03/12/22 08:56 CRAMPS benztropine [From COGENTIN] Allergy Intermediate CONFUSION, Verified 03/12/22 08:56 memory loss bupropion [BUPROPION] Allergy Intermediate DIZZINESS Verified 03/12/22 08:56 erythromycin base Allergy Intermediate GI UPSET Verified 03/12/22 08:56 [ERYTHROMYCIN BASE] ibuprofen [From MOTRIN] Allergy Intermediate STOMACH Verified 03/12/22 08:56 CRAMPS olanzapine [From ZYPREXA] Allergy Intermediate TONGUE Verified 03/12/22 08:56 MOVEMENTS perphenazine [From TRILAFON] Allergy Intermediate ARM AND Verified 03/12/22 08:56 LEG MOVEMENTS, FALL risperidone [From RISPERDAL] Allergy Intermediate TONGUE Verified 03/12/22 08:56 MOVEMENT egg AdvReac Stomach Verified 09/29/23 18:15 Upset From INDERAL Allergy Intermediate WHEEZING Uncoded 03/12/22 08:56 Assessment & Plan Assessment & Plan (1) Bipolar disorder: Status: Acute Code(s): F31.9 - Bipolar disorder, unspecified Plan The patient is an elderly female, single, with no children on disability for mental illness who became non compliant on her medications for a few days and decompensate with depressive symptoms with suicidal ideation. She was assessed by crisis and transferring to this facility for psychiatric stabilization. Plan 1. Gather collateral information. 2. Restart Geodon and also other psychotropics as per medication reconciliation form. 3. Hospitalist referral. 4. EKG came back normal with normal QTC elongation we will continue with Geodon. 5. Reassessment results. 6. Contact primary psychiatrist. 7. Increase Geodon up to 100 mg p.o. b.i.d. on Oct 03. Reason for continued inpatient stay Substantial Risk for: inability to function, rapid decompensation and med/psych decompensation Time Spent With Patient Time: Total time managing care of this patient today __20__ minutes.
[2023-10-04 09:01] VITALS: BP 156/74; PULSE 79; RESP 18; TEMP 36.2; O2SAT 98
[2023-10-04] MEDS: Atorvastatin Calcium 20 MG TABLET PO (09:11)
[2023-10-04] MEDS: lamoTRIgine 25 MG TABLET 50 MG PO (09:11)
[2023-10-04] MEDS: clonazePAM 0.5 MG TABLET PO (09:11)
[2023-10-04] MEDS: Cholecalciferol (Vitamin D3) 25 MCG TABLET PO (09:11)
[2023-10-04] MEDS: Multivitamin TABLET 1 TAB PO (09:11)
[2023-10-04] MEDS: Trihexyphenidyl HCL 2 MG TABLET PO (09:11)
[2023-10-04] MEDS: Ziprasidone 80 MG CAPSULE PO ×2 (09:12→20:43)
[2023-10-04] MEDS: Ziprasidone 20 MG CAPSULE PO ×2 (09:12→20:43)
[2023-10-04 10:12] VITALS: BP 113/61; PULSE 75; RESP 18; TEMP 36.6; O2SAT 96
--- NOTE | 2023-10-04 14:00 | PC.NURSE ---
This service writer advisor was alerted at 1012 that Maryse fell which was unwitnessed by staff. One of my personalities made me slip! Upon assessment she was lying on the floor in the common area in the supine position. She was awake and oriented x 4 without LOC and Maryse denied hitting her head. She reported pain 4/10 to bilateral buttocks and declined offered PRN Tylenol. Neuro checks intact and VSS. Dr. Carrion at patient side to assess. Full ROM to all extremities and full WB to all extremities after she was assisted off the floor by two staff members. No signs of injury. High fall risk precautions initiated and maintained. Flanger BATSHEVA Davila notified by this service writer advisor of fall via phone call. Neuro checks q 2 hours and post fall assessment continue.
--- NOTE | 2023-10-04 15:36 | PC.NURSE ---
Addendum entered by Virginia Arteaga RN 10/04/23 15:39: This note originally entered in wrong chart. Note written 09/30/23 Original Note: Pt. arrived on uniton 09/30/23 at 12:30 accompanied by this RN and security. Pt. oriented to unit, no smoking and visitation policies explained. Pt. A & O X 4. She walks independently without assistive devices. She has her head flexed forward and wears a cervical collar, reporting that when she is doing better psychiatrically she is able to hold her head upright. She reports she has had increased problems with her balance. She eats slowly and methodically because she reports she has difficulty swallowing. PT/MASSAGE THERAPY INSTRUCTOR elif. Pt. is observed with ritualistic behaviors in the bathroom and around med administrations. Pt. who has long standing bipolar disorder and good community supports enabling her to live independently presented to the ED by ambulance after not taking medications for a few days. Pt. 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 In particular, one alter she refers to as Blue is causing her problems. Per crisis assmt. pt. is normally very regimented with her meds and it is unlike her to be non compliant. She reports she is seeking treatment to get these alters under control. Pt. lives independently in an apartment with robust services, including Meals on Wheels, house cleaning, laundry, and a BASIN TENDER. She has established providers and a strong support system. OT/PT/MASSAGE THERAPY INSTRUCTOR elif
[2023-10-04] MEDS: Omeprazole 20 MG CAPSULE.DR PO (16:32)
[2023-10-04] MEDS: lamoTRIgine 25 MG TABLET PO (18:21)
[2023-10-04 19:35] VITALS: BP 124/67; PULSE 74; RESP 18; TEMP 36.6; O2SAT 97
[2023-10-04] MEDS: lamoTRIgine 100 MG TABLET 200 MG PO (20:43)
[2023-10-05] MEDS: Levothyroxine Sodium 125 MCG TABLET PO (06:31)
[2023-10-05 08:37] VITALS: BP 145/66; PULSE 92; RESP 18; TEMP 36.3; O2SAT 96
[2023-10-05] MEDS: Trihexyphenidyl HCL 2 MG TABLET PO (08:38)
[2023-10-05] MEDS: Ziprasidone 20 MG CAPSULE PO ×2 (08:38→21:07)
[2023-10-05] MEDS: Ziprasidone 80 MG CAPSULE PO ×2 (08:38→21:06)
[2023-10-05] MEDS: Cholecalciferol (Vitamin D3) 25 MCG TABLET PO (08:39)
[2023-10-05] MEDS: Atorvastatin Calcium 20 MG TABLET PO (08:39)
[2023-10-05] MEDS: lamoTRIgine 25 MG TABLET 50 MG PO (08:39)
[2023-10-05] MEDS: Acetaminophen 325 MG TABLET 650 MG PO (08:39)
[2023-10-05] MEDS: clonazePAM 0.5 MG TABLET PO ×2 (08:39→18:41)
[2023-10-05] MEDS: Multivitamin TABLET 1 TAB PO (08:39)
--- NOTE | 2023-10-05 08:59 | P.PNPSI_ITS ---
Subjective Subjective Date of Service: 10/05/23 Reason For Visit: Mood Disorder Subjective Notes: Conditional Voluntary Interim History: The the nursing staff reported the patient was alert oriented x3 come cooperative. Yesterday in the morning she fell and was on a row checks. Today in the morning she felt anxious and safe. On interview the patient denies new symptoms we kept her on neuro checks for today and discontinue later tomorrow. Still with some auditory hallucinations I explained her that she has just received only 1 extra dose of Geodon. Mental Status Exam Mental Status Exam Patient Appearance: Well Grooomed Patient Orientation: Person and Situation Level of Consciousness: Awake and Appropriate Patient Behavior: Guarded, Cooperative and Passive Mood Description: Withdrawn Affect Description: Constricted Patient Cognition Impaired: Yes Ability to Follow Directions: Good Speech Pattern: Clear Hallucinations: Auditory Delusions: Not Present Thought Process: Linear Thought Content: positive for [place] and positive for Circumstantial Judgement: Fair Diagnostics Vital Signs (24Hr): Vital Signs - 24 hr 10/04/23 10:12 10/04/23 19:35 Temperature 97.8 F 97.8 F Pulse Rate 75 74 Respiratory Rate 18 18 Blood Pressure 113/61 124/67 Pulse Oximetry 96 97 Oxygen Delivery Method Room Air Room Air BMI result Body Mass Index 21.9 Labs 09/29/23 20:01 10/01/23 07:41 Medications Medications Current Medications Acetaminophen (Acetaminophen 325 Mg Tablet) 650 mg PO Q6H PRN PRN Reason: Headache/Pain Mild Scale (1-3) Last Admin: 10/05/23 08:39 Dose: 650 mg Al Hydroxide/Mg Hydroxide (Magnesium Hydrox/Alum Hydrox 30 Ml Oral.Susp) 30 ml PO Q6H PRN PRN Reason: Heartburn/Nausea Atorvastatin Calcium (Atorvastatin Calcium 20 Mg Tablet) 20 mg PO DAILY [facility] Last Admin: 10/05/23 08:39 Dose: 20 mg Calcium Carbonate (Calcium Carbonate 500 Mg Tablet) 500 mg PO DAILY NAT Last Admin: 10/05/23 08:39 Dose: 500 mg Clonazepam (Clonazepam 0.5 Mg Tablet) 0.5 mg PO TID PRN PRN Reason: anxiety Last Admin: 10/05/23 08:39 Dose: 0.5 mg Hydroxyzine HCl (Hydroxyzine Hcl 25 Mg Tablet) 25 mg PO Q6H PRN PRN Reason: Anxiety Lamotrigine (Lamotrigine 25 Mg Tablet) 50 mg PO DAILY [facility] Last Admin: 10/05/23 08:39 Dose: 50 mg Lamotrigine (Lamotrigine 25 Mg Tablet) 25 mg PO DAILY@1900 [facility] Last Admin: 10/04/23 18:21 Dose: 25 mg Lamotrigine (Lamotrigine 100 Mg Tablet) 200 mg PO BEDTIME [facility] Last Admin: 10/04/23 20:43 Dose: 200 mg Levothyroxine Sodium (Levothyroxine Sodium 125 Mcg Tablet) 125 mcg PO DAILY@0600 [facility] Last Admin: 10/05/23 06:31 Dose: 125 mcg Magnesium Hydroxide (Milk Of Magnesia 30 Ml Oral.Susp) 30 ml PO TID PRN PRN Reason: Constipation Multivitamins/Vitamin C (Multivitamin Tablet) 1 tab PO DAILY [facility] Last Admin: 10/05/23 08:39 Dose: 1 tab Omeprazole (Omeprazole 20 Mg Capsule.Dr) 20 mg PO DAILY@1700 [facility] Last Admin: 10/04/23 16:32 Dose: 20 mg Trazodone HCl (Trazodone Hcl 50 Mg Tablet) 50 mg PO BEDTIME MRX1 PRN PRN Reason: Insomnia Trihexyphenidyl HCl (Trihexyphenidyl Hcl 2 Mg Tablet) 2 mg PO DAILY [facility] Last Admin: 10/05/23 08:38 Dose: 2 mg Vitamin D (Cholecalciferol (Vitamin D3) 25 Mcg Tablet) 25 mcg PO DAILY [facility] Last Admin: 10/05/23 08:39 Dose: 25 mcg Ziprasidone (Ziprasidone 80 Mg Capsule) 80 mg PO BID [facility] Last Admin: 10/05/23 08:38 Dose: 80 mg Ziprasidone (Ziprasidone 20 Mg Capsule) 20 mg PO BID [facility] Last Admin: 10/05/23 08:38 Dose: 20 mg Allergies Allergies Allergy/AdvReac Type Severity Reaction Status Date / Time Penicillins [PENICILLINS] Allergy Severe HIVES Verified 03/12/22 08:56 sulfamethoxazole Allergy Severe DIARRHEA Verified 03/12/22 08:56 [From BACTRIM] trimethoprim [From BACTRIM] Allergy Severe DIARRHEA Verified 03/12/22 08:56 aripiprazole [From ABILIFY] Allergy Intermediate ATAXIA Verified 03/12/22 08:56 aspirin [ASPIRIN] Allergy Intermediate STOMACH Verified 03/12/22 08:56 CRAMPS benztropine [From COGENTIN] Allergy Intermediate CONFUSION, Verified 03/12/22 08:56 memory loss bupropion [BUPROPION] Allergy Intermediate DIZZINESS Verified 03/12/22 08:56 erythromycin base Allergy Intermediate GI UPSET Verified 03/12/22 08:56 [ERYTHROMYCIN BASE] ibuprofen [From MOTRIN] Allergy Intermediate STOMACH Verified 03/12/22 08:56 CRAMPS olanzapine [From ZYPREXA] Allergy Intermediate TONGUE Verified 03/12/22 08:56 MOVEMENTS perphenazine [From TRILAFON] Allergy Intermediate ARM AND Verified 03/12/22 08:56 LEG MOVEMENTS, FALL risperidone [From RISPERDAL] Allergy Intermediate TONGUE Verified 03/12/22 08:56 MOVEMENT egg AdvReac Stomach Verified 09/29/23 18:15 Upset From INDERAL Allergy Intermediate WHEEZING Uncoded 03/12/22 08:56 Assessment & Plan Assessment & Plan (1) Bipolar disorder: Status: Acute Code(s): F31.9 - Bipolar disorder, unspecified Plan The patient is an elderly female, single, with no children on disability for mental illness who became non compliant on her medications for a few days and decompensate with depressive symptoms with suicidal ideation. She was assessed by crisis and transferring to this facility for psychiatric stabilization. Plan 1. Gather collateral information. 2. Restart Geodon and also other psychotropics as per medication reconciliation form. 3. Hospitalist referral. 4. EKG came back normal with normal QTC elongation we will continue with Geodon. 5. Reassessment results. 6. Contact primary psychiatrist. 7. Increase Geodon up to 100 mg p.o. b.i.d. on Oct 03. Reason for continued inpatient stay Substantial Risk for: inability to function, rapid decompensation and med/psych decompensation Time Spent With Patient Time: Total time managing care of this patient today __20__ minutes.
[2023-10-05] MEDS: Milk of Magnesia 30 ML ORAL.SUSP PO (12:45)
[2023-10-05] MEDS: Omeprazole 20 MG CAPSULE.DR PO (16:39)
[2023-10-05 18:00] VITALS: BP 133/78; PULSE 79; RESP 16; TEMP 36.2; O2SAT 91
[2023-10-05] MEDS: lamoTRIgine 25 MG TABLET PO (18:42)
[2023-10-05] MEDS: lamoTRIgine 100 MG TABLET 200 MG PO (21:06)
[2023-10-06] MEDS: Levothyroxine Sodium 125 MCG TABLET PO (06:27)
[2023-10-06 07:55] VITALS: BP 120/66; PULSE 78; RESP 18; TEMP 36.8; O2SAT 98
[2023-10-06] MEDS: Atorvastatin Calcium 20 MG TABLET PO (08:37)
[2023-10-06] MEDS: Cholecalciferol (Vitamin D3) 25 MCG TABLET PO (08:37)
[2023-10-06] MEDS: Multivitamin TABLET 1 TAB PO (08:37)
[2023-10-06] MEDS: Ziprasidone 20 MG CAPSULE PO ×2 (08:37→20:46)
[2023-10-06] MEDS: lamoTRIgine 25 MG TABLET 50 MG PO (08:38)
[2023-10-06] MEDS: Trihexyphenidyl HCL 2 MG TABLET PO (08:39)
[2023-10-06] MEDS: Ziprasidone 80 MG CAPSULE PO ×2 (08:39→20:46)
--- NOTE | 2023-10-06 10:23 | P.PNPSI_ITS ---
Subjective Subjective Date of Service: 10/06/23 Reason For Visit: Mood Disorder Subjective Notes: Conditional Voluntary Interim History: The nursing staff reported the patient had been common cooperative and pleasant. She had been fully compliant with increase of Geodon up to 100 mg p.o. b.i.d.. On interview the patient reports still sporadic auditory hallucinations, little attention seeking. The occupational therapist reported that she has court on the [facility] an Bryce test of 3.4. We will observe how she improves on her psychosis, if not we will increase the typical antipsychotics Mental Status Exam Mental Status Exam Patient Appearance: Appropriate Patient Orientation: Person and Situation Level of Consciousness: Awake and Appropriate Patient Behavior: Guarded and Passive Mood Description: Calm Affect Description: Constricted Patient Cognition Impaired: Yes Ability to Follow Directions: Good Speech Pattern: Appropriate Hallucinations: None Delusions: Not Present Thought Content: positive for [place] Judgement: Fair Diagnostics Vital Signs (24Hr): Vital Signs - 24 hr 10/05/23 18:00 10/06/23 07:55 Temperature 97.2 F 98.3 F Pulse Rate 79 78 Respiratory Rate 16 18 Blood Pressure 133/78 120/66 Pulse Oximetry 91 L 98 Oxygen Delivery Method Room Air Room Air BMI result Body Mass Index 21.9 Labs 09/29/23 20:01 10/01/23 07:41 Medications Medications Current Medications Acetaminophen (Acetaminophen 325 Mg Tablet) 650 mg PO Q6H PRN PRN Reason: Headache/Pain Mild Scale (1-3) Last Admin: 10/05/23 08:39 Dose: 650 mg Al Hydroxide/Mg Hydroxide (Magnesium Hydrox/Alum Hydrox 30 Ml Oral.Susp) 30 ml PO Q6H PRN PRN Reason: Heartburn/Nausea Atorvastatin Calcium (Atorvastatin Calcium 20 Mg Tablet) 20 mg PO DAILY [facility] Last Admin: 10/06/23 08:37 Dose: 20 mg Calcium Carbonate (Calcium Carbonate 500 Mg Tablet) 500 mg PO DAILY [facility] Last Admin: 10/06/23 08:39 Dose: 500 mg Clonazepam (Clonazepam 0.5 Mg Tablet) 0.5 mg PO TID PRN PRN Reason: anxiety Last Admin: 10/05/23 18:41 Dose: 0.5 mg Hydroxyzine HCl (Hydroxyzine Hcl 25 Mg Tablet) 25 mg PO Q6H PRN PRN Reason: Anxiety Lamotrigine (Lamotrigine 25 Mg Tablet) 50 mg PO DAILY [facility] Last Admin: 10/06/23 08:38 Dose: 50 mg Lamotrigine (Lamotrigine 25 Mg Tablet) 25 mg PO DAILY@1900 [facility] Last Admin: 10/05/23 18:42 Dose: 25 mg Lamotrigine (Lamotrigine 100 Mg Tablet) 200 mg PO BEDTIME [facility] Last Admin: 10/05/23 21:06 Dose: 200 mg Levothyroxine Sodium (Levothyroxine Sodium 125 Mcg Tablet) 125 mcg PO DAILY@0600 [facility] Last Admin: 10/06/23 06:27 Dose: 125 mcg Magnesium Hydroxide (Milk Of Magnesia 30 Ml Oral.Susp) 30 ml PO TID PRN PRN Reason: Constipation Last Admin: 10/05/23 12:45 Dose: 30 ml Multivitamins/Vitamin C (Multivitamin Tablet) 1 tab PO DAILY [facility] Last Admin: 10/06/23 08:37 Dose: 1 tab Omeprazole (Omeprazole 20 Mg Capsule.Dr) 20 mg PO DAILY@1700 [facility] Last Admin: 10/05/23 16:39 Dose: 20 mg Trazodone HCl (Trazodone Hcl 50 Mg Tablet) 50 mg PO BEDTIME MRX1 PRN PRN Reason: Insomnia Trihexyphenidyl HCl (Trihexyphenidyl Hcl 2 Mg Tablet) 2 mg PO DAILY [facility] Last Admin: 10/06/23 08:39 Dose: 2 mg Vitamin D (Cholecalciferol (Vitamin D3) 25 Mcg Tablet) 25 mcg PO DAILY [facility] Last Admin: 10/06/23 08:37 Dose: 25 mcg Ziprasidone (Ziprasidone 80 Mg Capsule) 80 mg PO BID [facility] Last Admin: 10/06/23 08:39 Dose: 80 mg Ziprasidone (Ziprasidone 20 Mg Capsule) 20 mg PO BID [facility] Last Admin: 10/06/23 08:37 Dose: 20 mg Allergies Allergies Allergy/AdvReac Type Severity Reaction Status Date / Time Penicillins [PENICILLINS] Allergy Severe HIVES Verified 03/12/22 08:56 sulfamethoxazole Allergy Severe DIARRHEA Verified 03/12/22 08:56 [From BACTRIM] trimethoprim [From BACTRIM] Allergy Severe DIARRHEA Verified 03/12/22 08:56 aripiprazole [From ABILIFY] Allergy Intermediate ATAXIA Verified 03/12/22 08:56 aspirin [ASPIRIN] Allergy Intermediate STOMACH Verified 03/12/22 08:56 CRAMPS benztropine [From COGENTIN] Allergy Intermediate CONFUSION, Verified 03/12/22 08:56 memory loss bupropion [BUPROPION] Allergy Intermediate DIZZINESS Verified 03/12/22 08:56 erythromycin base Allergy Intermediate GI UPSET Verified 03/12/22 08:56 [ERYTHROMYCIN BASE] ibuprofen [From MOTRIN] Allergy Intermediate STOMACH Verified 03/12/22 08:56 CRAMPS olanzapine [From ZYPREXA] Allergy Intermediate TONGUE Verified 03/12/22 08:56 MOVEMENTS perphenazine [From TRILAFON] Allergy Intermediate ARM AND Verified 03/12/22 08:56 LEG MOVEMENTS, FALL risperidone [From RISPERDAL] Allergy Intermediate TONGUE Verified 03/12/22 08:56 MOVEMENT egg AdvReac Stomach Verified 09/29/23 18:15 Upset From INDERAL Allergy Intermediate WHEEZING Uncoded 03/12/22 08:56 Assessment & Plan Assessment & Plan (1) Bipolar disorder: Status: Acute Code(s): F31.9 - Bipolar disorder, unspecified Plan The patient is an elderly female, single, with no children on disability for mental illness who became non compliant on her medications for a few days and decompensate with depressive symptoms with suicidal ideation. She was assessed by crisis and transferring to this facility for psychiatric stabilization. Plan 1. Gather collateral information. 2. Restart Geodon and also other psychotropics as per medication reconciliation form. 3. Hospitalist referral. 4. EKG came back normal with normal QTC elongation we will continue with Geodon. 5. Reassessment results. 6. Contact primary psychiatrist. 7. Increase Geodon up to 100 mg p.o. b.i.d. on Oct 03. Reason for continued inpatient stay Substantial Risk for: inability to function, rapid decompensation and med/psych decompensation Time Spent With Patient Time: Total time managing care of this patient today __20__ minutes.
[2023-10-06] MEDS: clonazePAM 0.5 MG TABLET PO ×2 (13:27→20:58)
[2023-10-06] MEDS: Omeprazole 20 MG CAPSULE.DR PO (16:12)
[2023-10-06 19:56] VITALS: BP 150/83; PULSE 76; RESP 16; TEMP 37.3; O2SAT 99
[2023-10-06] MEDS: lamoTRIgine 25 MG TABLET PO (20:46)
[2023-10-06] MEDS: lamoTRIgine 100 MG TABLET 200 MG PO (20:46)
[2023-10-07] MEDS: Levothyroxine Sodium 125 MCG TABLET PO (06:31)
[2023-10-07 07:40] VITALS: BP 139/78; PULSE 86; RESP 18; TEMP 36.6; O2SAT 100
[2023-10-07] MEDS: Ziprasidone 20 MG CAPSULE PO ×2 (08:27→20:41)
[2023-10-07] MEDS: Trihexyphenidyl HCL 2 MG TABLET PO (08:27)
[2023-10-07] MEDS: Ziprasidone 80 MG CAPSULE PO ×2 (08:27→20:41)
[2023-10-07] MEDS: lamoTRIgine 25 MG TABLET 50 MG PO (08:27)
[2023-10-07] MEDS: Multivitamin TABLET 1 TAB PO (08:27)
[2023-10-07] MEDS: Atorvastatin Calcium 20 MG TABLET PO (08:27)
[2023-10-07] MEDS: Cholecalciferol (Vitamin D3) 25 MCG TABLET PO (08:27)
--- NOTE | 2023-10-07 12:17 | P.PNPSI_ITS ---
Subjective Subjective Date of Service: 10/07/23 Reason For Visit: Mood Disorder Subjective Notes: Conditional Voluntary Interim History: The nursing staff reported the patient had been pleasant, social and she slept well. On interview the patient reported that his personalities her talking to herself but she feels much better. Mental Status Exam Mental Status Exam Patient Appearance: Well Grooomed and Appropriate Patient Orientation: Person, Place, Time and Situation Level of Consciousness: Awake and Appropriate Patient Behavior: Guarded and Passive Mood Description: Withdrawn Affect Description: Constricted Patient Cognition Impaired: Yes Ability to Follow Directions: Good Speech Pattern: Clear Hallucinations: Auditory Delusions: Paranoid Ideation Thought Process: Distracted and Slowed Thinking Thought Content: positive for [place] and positive for [place] of Content Judgement: Fair Diagnostics Vital Signs (24Hr): Vital Signs - 24 hr 10/06/23 19:56 10/07/23 07:40 Temperature 99.2 F 97.9 F Pulse Rate 76 86 Respiratory Rate 16 18 Blood Pressure 150/83 H 139/78 Pulse Oximetry 99 100 Oxygen Delivery Method Room Air Room Air BMI result Body Mass Index 21.9 Labs 09/29/23 20:01 10/01/23 07:41 Medications Medications Current Medications Acetaminophen (Acetaminophen 325 Mg Tablet) 650 mg PO Q6H PRN PRN Reason: Headache/Pain Mild Scale (1-3) Last Admin: 10/05/23 08:39 Dose: 650 mg Al Hydroxide/Mg Hydroxide (Magnesium Hydrox/Alum Hydrox 30 Ml Oral.Susp) 30 ml PO Q6H PRN PRN Reason: Heartburn/Nausea Atorvastatin Calcium (Atorvastatin Calcium 20 Mg Tablet) 20 mg PO DAILY [facility] Last Admin: 10/07/23 08:27 Dose: 20 mg Calcium Carbonate (Calcium Carbonate 500 Mg Tablet) 500 mg PO DAILY [facility] Last Admin: 10/07/23 08:27 Dose: 500 mg Clonazepam (Clonazepam 0.5 Mg Tablet) 0.5 mg PO TID PRN PRN Reason: anxiety Last Admin: 10/06/23 20:58 Dose: 0.5 mg Hydroxyzine HCl (Hydroxyzine Hcl 25 Mg Tablet) 25 mg PO Q6H PRN PRN Reason: Anxiety Lamotrigine (Lamotrigine 25 Mg Tablet) 50 mg PO DAILY [facility] Last Admin: 10/07/23 08:27 Dose: 50 mg Lamotrigine (Lamotrigine 25 Mg Tablet) 25 mg PO DAILY@1900 [facility] Last Admin: 10/06/23 20:46 Dose: 25 mg Lamotrigine (Lamotrigine 100 Mg Tablet) 200 mg PO BEDTIME [facility] Last Admin: 10/06/23 20:46 Dose: 200 mg Levothyroxine Sodium (Levothyroxine Sodium 125 Mcg Tablet) 125 mcg PO DAILY@0600 [facility] Last Admin: 10/07/23 06:31 Dose: 125 mcg Magnesium Hydroxide (Milk Of Magnesia 30 Ml Oral.Susp) 30 ml PO TID PRN PRN Reason: Constipation Last Admin: 10/05/23 12:45 Dose: 30 ml Multivitamins/Vitamin C (Multivitamin Tablet) 1 tab PO DAILY [facility] Last Admin: 10/07/23 08:27 Dose: 1 tab Omeprazole (Omeprazole 20 Mg Capsule.Dr) 20 mg PO DAILY@1700 [facility] Last Admin: 10/06/23 16:12 Dose: 20 mg Trazodone HCl (Trazodone Hcl 50 Mg Tablet) 50 mg PO BEDTIME MRX1 PRN PRN Reason: Insomnia Trihexyphenidyl HCl (Trihexyphenidyl Hcl 2 Mg Tablet) 2 mg PO DAILY [facility] Last Admin: 10/07/23 08:27 Dose: 2 mg Vitamin D (Cholecalciferol (Vitamin D3) 25 Mcg Tablet) 25 mcg PO DAILY [facility] Last Admin: 10/07/23 08:27 Dose: 25 mcg Ziprasidone (Ziprasidone 80 Mg Capsule) 80 mg PO BID [facility] Last Admin: 10/07/23 08:27 Dose: 80 mg Ziprasidone (Ziprasidone 20 Mg Capsule) 20 mg PO BID [facility] Last Admin: 10/07/23 08:27 Dose: 20 mg Allergies Allergies Allergy/AdvReac Type Severity Reaction Status Date / Time Penicillins [PENICILLINS] Allergy Severe HIVES Verified 03/12/22 08:56 sulfamethoxazole Allergy Severe DIARRHEA Verified 03/12/22 08:56 [From BACTRIM] trimethoprim [From BACTRIM] Allergy Severe DIARRHEA Verified 03/12/22 08:56 aripiprazole [From ABILIFY] Allergy Intermediate ATAXIA Verified 03/12/22 08:56 aspirin [ASPIRIN] Allergy Intermediate STOMACH Verified 03/12/22 08:56 CRAMPS benztropine [From COGENTIN] Allergy Intermediate CONFUSION, Verified 03/12/22 08:56 memory loss bupropion [BUPROPION] Allergy Intermediate DIZZINESS Verified 03/12/22 08:56 erythromycin base Allergy Intermediate GI UPSET Verified 03/12/22 08:56 [ERYTHROMYCIN BASE] ibuprofen [From MOTRIN] Allergy Intermediate STOMACH Verified 03/12/22 08:56 CRAMPS olanzapine [From ZYPREXA] Allergy Intermediate TONGUE Verified 03/12/22 08:56 MOVEMENTS perphenazine [From TRILAFON] Allergy Intermediate ARM AND Verified 03/12/22 08:56 LEG MOVEMENTS, FALL risperidone [From RISPERDAL] Allergy Intermediate TONGUE Verified 03/12/22 08:56 MOVEMENT egg AdvReac Stomach Verified 09/29/23 18:15 Upset From INDERAL Allergy Intermediate WHEEZING Uncoded 03/12/22 08:56 Assessment & Plan Assessment & Plan (1) Bipolar disorder: Status: Acute Code(s): F31.9 - Bipolar disorder, unspecified Plan The patient is an elderly female, single, with no children on disability for mental illness who became non compliant on her medications for a few days and decompensate with depressive symptoms with suicidal ideation. She was assessed by crisis and transferring to this facility for psychiatric stabilization. Plan 1. Gather collateral information. 2. Restart Geodon and also other psychotropics as per medication reconciliation form. 3. Hospitalist referral. 4. EKG came back normal with normal QTC elongation we will continue with Geodon. 5. Reassessment results. 6. Contact primary psychiatrist. 7. Increase Geodon up to 100 mg p.o. b.i.d. on Oct 03. Reason for continued inpatient stay Substantial Risk for: inability to function, rapid decompensation and med/psych decompensation Time Spent With Patient Time: Total time managing care of this patient today __20__ minutes.
[2023-10-07] MEDS: Omeprazole 20 MG CAPSULE.DR PO (16:19)
[2023-10-07] MEDS: lamoTRIgine 25 MG TABLET PO (18:07)
[2023-10-07] MEDS: clonazePAM 0.5 MG TABLET PO (18:08)
[2023-10-07 19:40] VITALS: BP 140/75; PULSE 73; RESP 16; TEMP 36.7; O2SAT 100
[2023-10-07] MEDS: lamoTRIgine 100 MG TABLET 200 MG PO (20:41)
[2023-10-07] MEDS: traZODone HCL 50 MG TABLET PO (20:41)
[2023-10-08] MEDS: Levothyroxine Sodium 125 MCG TABLET PO (06:31)
[2023-10-08 07:52] VITALS: BP 132/63; PULSE 96; RESP 17; TEMP 36.4; O2SAT 96
--- NOTE | 2023-10-08 10:53 | P.PNPSI_ITS ---
Subjective Subjective Date of Service: 10/08/23 Reason For Visit: Mood Disorder Subjective Notes: Conditional Voluntary Interim History: Pt slept through the night. Pt reports difficulty swallowing pills- RN consulted with pharmacy as to which meds can be crushed. She does not appear with any mechanical issues to swallow and appears to eat her food without any issues. Pt informed some medications can't be crushed- including geodone and clonazepam per pharmacy- pt agrees to take medications with apple sauce. She denied SI/HI. She reports hearing voices related to past trauma. She has been visible on the unit and social with select peers. We discussed treatment outpatient as most effective for chronic trauma and voices related to trauma. She was also advised to use journal- re as to why she thinks voices related to trauma are coming out now. Medication Compliance: Yes Side effects from medications: No Attending Groups: Yes Review of Systems Review of Systems Constitutional : No Weight loss, No Fever, No Chills, No Night Sweats, No Fatigue, No Malaise ENT/Mouth : No Hearing loss, No Ear Pain, No Nasal Congestion, No Sinus Pain, No Hoarseness, No sore throat, No Rhinorrhea, No Swallowing Difficulty Eyes: No Eye Pain, No Swelling, No Redness, No Foreign Body, No Discharge, No Vision Changes Cardiovascular : No Chest Pain, No SOB, No Dyspnea on Exertion, No Orthopnea, No Edema, No Palpitations Respiratory : No Cough, No Sputum, No Wheezing, No Smoke Exposure, No Dyspnea Gastrointestinal : No Nausea, No Vomiting, No Diarrhea, No Constipation, No abdominal Pain, No Hematochezia, No Melena Genitourinary : no irregular bleeding, No Dysuria, No Urinary Frequency, No Hematuria, No Urinary Incontinence, No Urgency, No Flank Pain, No Urinary Flow Changes, No Hesitancy Musculoskeletal : No joint pain, No Myalgias, No Joint Swelling Skin : No Skin Lesions, No rash Neuro : No Weakness, No Numbness, No Paresthesias, No Loss of Consciousness, No Dizziness, No Headache Psych : No Anxiety/Panic, stop taking medications, denies SI or HI, patient believes she is anorexic Heme/Lymph: No Bruising, No Bleeding,No Lymphadenopathy Endocrine : No Polyuria, No Polydipsia, No Temperature Intolerance Yes all other systems are reviewed and are negative Mental Status Exam Mental Status Exam Patient Appearance: Well Grooomed and Appropriate Patient Orientation: Person, Place, Time and Situation Level of Consciousness: Awake and Appropriate Patient Behavior: Guarded and Passive Mood Description: Withdrawn Affect Description: Constricted Patient Cognition Impaired: Yes Ability to Follow Directions: Good Speech Pattern: Clear Diagnostics Vital Signs (24Hr): Vital Signs - 24 hr 10/07/23 19:40 10/08/23 07:52 Temperature 98.1 F 97.5 F Pulse Rate 73 96 Respiratory Rate 16 17 Blood Pressure 140/75 H 132/63 Pulse Oximetry 100 96 Oxygen Delivery Method Room Air Room Air BMI result Body Mass Index 21.9 Labs 09/29/23 20:01 10/01/23 07:41 Medications Medications Current Medications Acetaminophen (Acetaminophen 325 Mg Tablet) 650 mg PO Q6H PRN PRN Reason: Headache/Pain Mild Scale (1-3) Last Admin: 10/05/23 08:39 Dose: 650 mg Al Hydroxide/Mg Hydroxide (Magnesium Hydrox/Alum Hydrox 30 Ml Oral.Susp) 30 ml PO Q6H PRN PRN Reason: Heartburn/Nausea Atorvastatin Calcium (Atorvastatin Calcium 20 Mg Tablet) 20 mg PO DAILY [facility] Last Admin: 10/07/23 08:27 Dose: 20 mg Calcium Carbonate (Calcium Carbonate 500 Mg Tablet) 500 mg PO DAILY [facility] Last Admin: 10/07/23 08:27 Dose: 500 mg Clonazepam (Clonazepam 0.5 Mg Tablet) 0.5 mg PO TID PRN PRN Reason: anxiety Last Admin: 10/07/23 18:08 Dose: 0.5 mg Hydroxyzine HCl (Hydroxyzine Hcl 25 Mg Tablet) 25 mg PO Q6H PRN PRN Reason: Anxiety Lamotrigine (Lamotrigine 25 Mg Tablet) 50 mg PO DAILY [facility] Last Admin: 10/07/23 08:27 Dose: 50 mg Lamotrigine (Lamotrigine 25 Mg Tablet) 25 mg PO DAILY@1900 [facility] Last Admin: 10/07/23 18:07 Dose: 25 mg Lamotrigine (Lamotrigine 100 Mg Tablet) 200 mg PO BEDTIME [facility] Last Admin: 10/07/23 20:41 Dose: 200 mg Levothyroxine Sodium (Levothyroxine Sodium 125 Mcg Tablet) 125 mcg PO DAILY@0600 [facility] Last Admin: 10/08/23 06:31 Dose: 125 mcg Magnesium Hydroxide (Milk Of Magnesia 30 Ml Oral.Susp) 30 ml PO TID PRN PRN Reason: Constipation Last Admin: 10/05/23 12:45 Dose: 30 ml Multivitamins/Vitamin C (Multivitamin Tablet) 1 tab PO DAILY [facility] Last Admin: 10/07/23 08:27 Dose: 1 tab Omeprazole (Omeprazole/Na Bicarb Oral Susp 20 Mg/10 Ml Ud Cup) 20 mg PO DAILY@0630 [facility] Trazodone HCl (Trazodone Hcl 50 Mg Tablet) 50 mg PO BEDTIME MRX1 PRN PRN Reason: Insomnia Last Admin: 10/07/23 20:41 Dose: 50 mg Trihexyphenidyl HCl (Trihexyphenidyl Hcl 2 Mg Tablet) 2 mg PO DAILY [facility] Last Admin: 10/07/23 08:27 Dose: 2 mg Vitamin D (Cholecalciferol (Vitamin D3) 25 Mcg Tablet) 25 mcg PO DAILY [facility] Last Admin: 10/07/23 08:27 Dose: 25 mcg Ziprasidone (Ziprasidone 80 Mg Capsule) 80 mg PO BID [facility] Last Admin: 10/07/23 20:41 Dose: 80 mg Ziprasidone (Ziprasidone 20 Mg Capsule) 20 mg PO BID [facility] Last Admin: 10/07/23 20:41 Dose: 20 mg Allergies Allergies Allergy/AdvReac Type Severity Reaction Status Date / Time Penicillins [PENICILLINS] Allergy Severe HIVES Verified 03/12/22 08:56 sulfamethoxazole Allergy Severe DIARRHEA Verified 03/12/22 08:56 [From BACTRIM] trimethoprim [From BACTRIM] Allergy Severe DIARRHEA Verified 03/12/22 08:56 aripiprazole [From ABILIFY] Allergy Intermediate ATAXIA Verified 03/12/22 08:56 aspirin [ASPIRIN] Allergy Intermediate STOMACH Verified 03/12/22 08:56 CRAMPS benztropine [From COGENTIN] Allergy Intermediate CONFUSION, Verified 03/12/22 08:56 memory loss bupropion [BUPROPION] Allergy Intermediate DIZZINESS Verified 03/12/22 08:56 erythromycin base Allergy Intermediate GI UPSET Verified 03/12/22 08:56 [ERYTHROMYCIN BASE] ibuprofen [From MOTRIN] Allergy Intermediate STOMACH Verified 03/12/22 08:56 CRAMPS olanzapine [From ZYPREXA] Allergy Intermediate TONGUE Verified 03/12/22 08:56 MOVEMENTS perphenazine [From TRILAFON] Allergy Intermediate ARM AND Verified 03/12/22 08:56 LEG MOVEMENTS, FALL risperidone [From RISPERDAL] Allergy Intermediate TONGUE Verified 03/12/22 08:56 MOVEMENT egg AdvReac Stomach Verified 09/29/23 18:15 Upset From INDERAL Allergy Intermediate WHEEZING Uncoded 03/12/22 08:56 Assessment & Plan Assessment & Plan (1) Bipolar disorder: Status: Acute Code(s): F31.9 - Bipolar disorder, unspecified (2) Personality disorder in adult: Status: Acute Code(s): F60.9 - Personality disorder, unspecified Plan The patient is an elderly female, single, with no children on disability for mental illness who became non compliant on her medications for a few days and decompensate with depressive symptoms with suicidal ideation. She was assessed by crisis and transferring to this facility for psychiatric stabilization. Plan 10/08- continue current medications. Reason for continued inpatient stay Substantial Risk for: inability to function Time Spent With Patient Time: Total time managing care of this patient today ____ minutes.
[2023-10-08] MEDS: Multivitamin TABLET 1 TAB PO (11:02)
[2023-10-08] MEDS: Cholecalciferol (Vitamin D3) 25 MCG TABLET PO (11:02)
[2023-10-08] MEDS: Atorvastatin Calcium 20 MG TABLET PO (11:02)
[2023-10-08] MEDS: lamoTRIgine 25 MG TABLET 50 MG PO (11:02)
[2023-10-08] MEDS: Acetaminophen 325 MG TABLET 650 MG PO (11:03)
[2023-10-08] MEDS: Trihexyphenidyl HCL 2 MG TABLET PO (11:03)
[2023-10-08] MEDS: Ziprasidone 20 MG CAPSULE PO ×2 (11:03→21:33)
[2023-10-08] MEDS: Ziprasidone 80 MG CAPSULE PO ×2 (11:03→21:33)
[2023-10-08 18:00] VITALS: BP 139/76; PULSE 86; RESP 18; TEMP 36.6; O2SAT 97
[2023-10-08] MEDS: lamoTRIgine 25 MG TABLET PO (18:27)
[2023-10-08] MEDS: lamoTRIgine 100 MG TABLET 200 MG PO (21:34)
[2023-10-08] MEDS: traZODone HCL 50 MG TABLET PO (21:35)
[2023-10-09] MEDS: Omeprazole/Na Bicarb Oral Susp 20 MG/10 ML UD Cup PO (05:57)
[2023-10-09] MEDS: Levothyroxine Sodium 125 MCG TABLET PO (05:57)
[2023-10-09 07:00] VITALS: BMI 22.2
[2023-10-09 09:38] VITALS: BP 148/61; PULSE 94; RESP 18; TEMP 36.4; O2SAT 98
[2023-10-09] MEDS: Cholecalciferol (Vitamin D3) 25 MCG TABLET PO (09:42)
[2023-10-09] MEDS: Trihexyphenidyl HCL 2 MG TABLET PO (09:42)
[2023-10-09] MEDS: Atorvastatin Calcium 20 MG TABLET PO (09:42)
[2023-10-09] MEDS: Acetaminophen 325 MG TABLET 650 MG PO (09:42)
[2023-10-09] MEDS: Ziprasidone 80 MG CAPSULE PO ×2 (09:42→20:58)
[2023-10-09] MEDS: clonazePAM 0.5 MG TABLET PO ×2 (09:42→17:40)
[2023-10-09] MEDS: Multivitamin TABLET 1 TAB PO (09:43)
[2023-10-09] MEDS: Ziprasidone 20 MG CAPSULE PO ×2 (09:43→20:58)
[2023-10-09] MEDS: lamoTRIgine 25 MG TABLET 50 MG PO (09:43)
[2023-10-09] MEDS: Milk of Magnesia 30 ML ORAL.SUSP PO (10:07)
--- NOTE | 2023-10-09 11:27 | P.PNPSI_ITS ---
Subjective Subjective Date of Service: 10/09/23 Reason For Visit: Mood Disorder Subjective Notes: Conditional Voluntary Interim History: The nursing staff reported the patient has been compliant with medications, she states that she has multiple personalities. She has been pleasant cooperative and denies exacerbation of auditory hallucinations. She slept well last night. Yesterday the social service technician try to work on discharge planning and probably will do it pretty soon. On interview the patient denies exacerbation of side effects or auditory hallucinations, she has chronic auditory hallucinations and she believes that she has multiple personality disorder, pleasant and easily redirectable. Mental Status Exam Mental Status Exam Patient Appearance: Well Grooomed and Appropriate Patient Orientation: Person and Situation Level of Consciousness: Awake and Appropriate Patient Behavior: Guarded and Passive Mood Description: Withdrawn Affect Description: Constricted Patient Cognition Impaired: Yes Ability to Follow Directions: Good Speech Pattern: Clear Hallucinations: Auditory Delusions: Paranoid Ideation Thought Process: Distracted Thought Content: positive for [place] and positive for Poverty of Content Judgement: Fair Diagnostics Vital Signs (24Hr): Vital Signs - 24 hr 10/08/23 18:00 10/09/23 09:38 Temperature 97.9 F 97.5 F Pulse Rate 86 94 Respiratory Rate 18 18 Blood Pressure 139/76 148/61 H Pulse Oximetry 97 98 Oxygen Delivery Method Room Air Room Air BMI result Body Mass Index 21.9 Labs 09/29/23 20:01 10/01/23 07:41 Medications Medications Current Medications Acetaminophen (Acetaminophen 325 Mg Tablet) 650 mg PO Q6H PRN PRN Reason: Headache/Pain Mild Scale (1-3) Last Admin: 10/09/23 09:42 Dose: 650 mg Al Hydroxide/Mg Hydroxide (Magnesium Hydrox/Alum Hydrox 30 Ml Oral.Susp) 30 ml PO Q6H PRN PRN Reason: Heartburn/Nausea Atorvastatin Calcium (Atorvastatin Calcium 20 Mg Tablet) 20 mg PO DAILY [facility] Last Admin: 10/09/23 09:42 Dose: 20 mg Calcium Carbonate (Calcium Carbonate 500 Mg Tablet) 500 mg PO DAILY [facility] Last Admin: 10/09/23 09:42 Dose: 500 mg Clonazepam (Clonazepam 0.5 Mg Tablet) 0.5 mg PO TID PRN PRN Reason: anxiety Last Admin: 10/09/23 09:42 Dose: 0.5 mg Hydroxyzine HCl (Hydroxyzine Hcl 25 Mg Tablet) 25 mg PO Q6H PRN PRN Reason: Anxiety Lamotrigine (Lamotrigine 25 Mg Tablet) 50 mg PO DAILY [facility] Last Admin: 10/09/23 09:43 Dose: 50 mg Lamotrigine (Lamotrigine 25 Mg Tablet) 25 mg PO DAILY@1900 [facility] Last Admin: 10/08/23 18:27 Dose: 25 mg Lamotrigine (Lamotrigine 100 Mg Tablet) 200 mg PO BEDTIME [facility] Last Admin: 10/08/23 21:34 Dose: 200 mg Levothyroxine Sodium (Levothyroxine Sodium 125 Mcg Tablet) 125 mcg PO DAILY@0600 [facility] Last Admin: 10/09/23 05:57 Dose: 125 mcg Magnesium Hydroxide (Milk Of Magnesia 30 Ml Oral.Susp) 30 ml PO TID PRN PRN Reason: Constipation Last Admin: 10/09/23 10:07 Dose: 30 ml Multivitamins/Vitamin C (Multivitamin Tablet) 1 tab PO DAILY [facility] Last Admin: 10/09/23 09:43 Dose: 1 tab Omeprazole (Omeprazole/Na Bicarb Oral Susp 20 Mg/10 Ml Ud Cup) 20 mg PO DAILY@0630 [facility] Last Admin: 10/09/23 05:57 Dose: 20 mg Trazodone HCl (Trazodone Hcl 50 Mg Tablet) 50 mg PO BEDTIME MRX1 PRN PRN Reason: Insomnia Last Admin: 10/08/23 21:35 Dose: 50 mg Trihexyphenidyl HCl (Trihexyphenidyl Hcl 2 Mg Tablet) 2 mg PO DAILY [facility] Last Admin: 10/09/23 09:42 Dose: 2 mg Vitamin D (Cholecalciferol (Vitamin D3) 25 Mcg Tablet) 25 mcg PO DAILY [facility] Last Admin: 10/09/23 09:42 Dose: 25 mcg Ziprasidone (Ziprasidone 80 Mg Capsule) 80 mg PO BID [facility] Last Admin: 10/09/23 09:42 Dose: 80 mg Ziprasidone (Ziprasidone 20 Mg Capsule) 20 mg PO BID [facility] Last Admin: 10/09/23 09:43 Dose: 20 mg Allergies Allergies Allergy/AdvReac Type Severity Reaction Status Date / Time Penicillins [PENICILLINS] Allergy Severe HIVES Verified 03/12/22 08:56 sulfamethoxazole Allergy Severe DIARRHEA Verified 03/12/22 08:56 [From BACTRIM] trimethoprim [From BACTRIM] Allergy Severe DIARRHEA Verified 03/12/22 08:56 aripiprazole [From ABILIFY] Allergy Intermediate ATAXIA Verified 03/12/22 08:56 aspirin [ASPIRIN] Allergy Intermediate STOMACH Verified 03/12/22 08:56 CRAMPS benztropine [From COGENTIN] Allergy Intermediate CONFUSION, Verified 03/12/22 08:56 memory loss bupropion [BUPROPION] Allergy Intermediate DIZZINESS Verified 03/12/22 08:56 erythromycin base Allergy Intermediate GI UPSET Verified 03/12/22 08:56 [ERYTHROMYCIN BASE] ibuprofen [From MOTRIN] Allergy Intermediate STOMACH Verified 03/12/22 08:56 CRAMPS olanzapine [From ZYPREXA] Allergy Intermediate TONGUE Verified 03/12/22 08:56 MOVEMENTS perphenazine [From TRILAFON] Allergy Intermediate ARM AND Verified 03/12/22 08:56 LEG MOVEMENTS, FALL risperidone [From RISPERDAL] Allergy Intermediate TONGUE Verified 03/12/22 08:56 MOVEMENT egg AdvReac Stomach Verified 09/29/23 18:15 Upset From INDERAL Allergy Intermediate WHEEZING Uncoded 03/12/22 08:56 Assessment & Plan Assessment & Plan (1) Bipolar disorder: Status: Acute Code(s): F31.9 - Bipolar disorder, unspecified (2) Personality disorder in adult: Status: Acute Code(s): F60.9 - Personality disorder, unspecified Plan The patient is an elderly female, single, with no children on disability for mental illness who became non compliant on her medications for a few days and decompensate with depressive symptoms with suicidal ideation. She was assessed by crisis and transferring to this facility for psychiatric stabilization. Plan 1. Continue with May 01 100 mg p.o. b.i.d.. 2. Continue with the rest of the medications. 3. Start discharge planning Reason for continued inpatient stay Substantial Risk for: inability to function, rapid decompensation and med/psych decompensation Time Spent With Patient Time: Total time managing care of this patient today __20__ minutes.
[2023-10-09] MEDS: lamoTRIgine 25 MG TABLET PO (17:40)
[2023-10-09 18:00] VITALS: BP 129/70; PULSE 70; RESP 16; TEMP 36.5; O2SAT 100
[2023-10-09] MEDS: lamoTRIgine 100 MG TABLET 200 MG PO (20:58)
[2023-10-09] MEDS: traZODone HCL 50 MG TABLET PO ×2 (20:58→23:05)
[2023-10-10] MEDS: Levothyroxine Sodium 125 MCG TABLET PO (06:05)
[2023-10-10] MEDS: Omeprazole/Na Bicarb Oral Susp 20 MG/10 ML UD Cup PO (06:05)
[2023-10-10 08:37] VITALS: BP 138/70; PULSE 74; RESP 18; TEMP 36.9; O2SAT 100
[2023-10-10] MEDS: Multivitamin TABLET 1 TAB PO (09:12)
[2023-10-10] MEDS: Cholecalciferol (Vitamin D3) 25 MCG TABLET PO (09:12)
[2023-10-10] MEDS: Ziprasidone 80 MG CAPSULE PO ×2 (09:12→20:23)
[2023-10-10] MEDS: Trihexyphenidyl HCL 2 MG TABLET PO (09:12)
[2023-10-10] MEDS: lamoTRIgine 25 MG TABLET 50 MG PO (09:12)
[2023-10-10] MEDS: clonazePAM 0.5 MG TABLET PO ×2 (09:12→14:49)
[2023-10-10] MEDS: Ziprasidone 20 MG CAPSULE PO ×2 (09:12→20:23)
[2023-10-10] MEDS: Atorvastatin Calcium 20 MG TABLET PO (09:12)
[2023-10-10] MEDS: Acetaminophen 325 MG TABLET 650 MG PO (09:13)
--- NOTE | 2023-10-10 12:33 | P.PNPSI_ITS ---
Subjective Subjective Date of Service: 10/10/23 Reason For Visit: Mood Disorder Subjective Notes: Conditional Voluntary Interim History: The nursing staff reported the patient denies suicidal or homicidal ideation she reports sporadic auditory hallucinations. She reported that 1 of her personalities are not doing well. On interview the patient was concerned about the early discharge next week. We are adding Haldol 2 mg p.o. q.h.s. and we are doing a EKG early in the morning on Friday. Before discharge. Mental Status Exam Mental Status Exam Patient Appearance: Well Grooomed and Appropriate Patient Orientation: Person, Place and Situation Level of Consciousness: Awake and Appropriate Patient Behavior: Guarded and Passive Mood Description: Withdrawn Affect Description: Constricted Patient Cognition Impaired: No Ability to Follow Directions: Good Speech Pattern: Clear Hallucinations: Auditory Delusions: Paranoid Ideation Thought Process: Distracted and Linear Thought Content: positive for [place], positive for Perseveration and positive for Poverty of Content Judgement: Fair Diagnostics Vital Signs (24Hr): Vital Signs - 24 hr 10/09/23 18:00 10/10/23 08:37 Temperature 97.7 F 98.4 F Pulse Rate 70 74 Respiratory Rate 16 18 Blood Pressure 129/70 138/70 Pulse Oximetry 100 100 Oxygen Delivery Method Room Air Room Air BMI result Body Mass Index 22.2 Labs 09/29/23 20:01 10/01/23 07:41 Medications Medications Current Medications Acetaminophen (Acetaminophen 325 Mg Tablet) 650 mg PO Q6H PRN PRN Reason: Headache/Pain Mild Scale (1-3) Last Admin: 10/10/23 09:13 Dose: 650 mg Al Hydroxide/Mg Hydroxide (Magnesium Hydrox/Alum Hydrox 30 Ml Oral.Susp) 30 ml PO Q6H PRN PRN Reason: Heartburn/Nausea Atorvastatin Calcium (Atorvastatin Calcium 20 Mg Tablet) 20 mg PO DAILY [facility] Last Admin: 10/10/23 09:12 Dose: 20 mg Calcium Carbonate (Calcium Carbonate 500 Mg Tablet) 500 mg PO DAILY [facility] Last Admin: 10/10/23 09:13 Dose: 500 mg Clonazepam (Clonazepam 0.5 Mg Tablet) 0.5 mg PO TID PRN PRN Reason: anxiety Last Admin: 10/10/23 09:12 Dose: 0.5 mg Haloperidol (Haloperidol 1 Mg Tablet) 2 mg PO BEDTIME [facility] Hydroxyzine HCl (Hydroxyzine Hcl 25 Mg Tablet) 25 mg PO Q6H PRN PRN Reason: Anxiety Lamotrigine (Lamotrigine 25 Mg Tablet) 50 mg PO DAILY [facility] Last Admin: 10/10/23 09:12 Dose: 50 mg Lamotrigine (Lamotrigine 25 Mg Tablet) 25 mg PO DAILY@1900 [facility] Last Admin: 10/09/23 17:40 Dose: 25 mg Lamotrigine (Lamotrigine 100 Mg Tablet) 200 mg PO BEDTIME [facility] Last Admin: 10/09/23 20:58 Dose: 200 mg Levothyroxine Sodium (Levothyroxine Sodium 125 Mcg Tablet) 125 mcg PO DAILY@0600 [facility] Last Admin: 10/10/23 06:05 Dose: 125 mcg Magnesium Hydroxide (Milk Of Magnesia 30 Ml Oral.Susp) 30 ml PO TID PRN PRN Reason: Constipation Last Admin: 10/09/23 10:07 Dose: 30 ml Multivitamins/Vitamin C (Multivitamin Tablet) 1 tab PO DAILY [facility] Last Admin: 10/10/23 09:12 Dose: 1 tab Omeprazole (Omeprazole/Na Bicarb Oral Susp 20 Mg/10 Ml Ud Cup) 20 mg PO DAILY@0630 [facility] Last Admin: 10/10/23 06:05 Dose: 20 mg Trazodone HCl (Trazodone Hcl 50 Mg Tablet) 50 mg PO BEDTIME MRX1 PRN PRN Reason: Insomnia Last Admin: 10/09/23 23:05 Dose: 50 mg Trihexyphenidyl HCl (Trihexyphenidyl Hcl 2 Mg Tablet) 2 mg PO DAILY [facility] Last Admin: 10/10/23 09:12 Dose: 2 mg Vitamin D (Cholecalciferol (Vitamin D3) 25 Mcg Tablet) 25 mcg PO DAILY [facility] Last Admin: 10/10/23 09:12 Dose: 25 mcg Ziprasidone (Ziprasidone 80 Mg Capsule) 80 mg PO BID [facility] Last Admin: 10/10/23 09:12 Dose: 80 mg Ziprasidone (Ziprasidone 20 Mg Capsule) 20 mg PO BID [facility] Last Admin: 10/10/23 09:12 Dose: 20 mg Allergies Allergies Allergy/AdvReac Type Severity Reaction Status Date / Time Penicillins [PENICILLINS] Allergy Severe HIVES Verified 03/12/22 08:56 sulfamethoxazole Allergy Severe DIARRHEA Verified 03/12/22 08:56 [From BACTRIM] trimethoprim [From BACTRIM] Allergy Severe DIARRHEA Verified 03/12/22 08:56 aripiprazole [From ABILIFY] Allergy Intermediate ATAXIA Verified 03/12/22 08:56 aspirin [ASPIRIN] Allergy Intermediate STOMACH Verified 03/12/22 08:56 CRAMPS benztropine [From COGENTIN] Allergy Intermediate CONFUSION, Verified 03/12/22 08:56 memory loss bupropion [BUPROPION] Allergy Intermediate DIZZINESS Verified 03/12/22 08:56 erythromycin base Allergy Intermediate GI UPSET Verified 03/12/22 08:56 [ERYTHROMYCIN BASE] ibuprofen [From MOTRIN] Allergy Intermediate STOMACH Verified 03/12/22 08:56 CRAMPS olanzapine [From ZYPREXA] Allergy Intermediate TONGUE Verified 03/12/22 08:56 MOVEMENTS perphenazine [From TRILAFON] Allergy Intermediate ARM AND Verified 03/12/22 08:56 LEG MOVEMENTS, FALL risperidone [From RISPERDAL] Allergy Intermediate TONGUE Verified 03/12/22 08:56 MOVEMENT egg AdvReac Stomach Verified 09/29/23 18:15 Upset From INDERAL Allergy Intermediate WHEEZING Uncoded 03/12/22 08:56 Assessment & Plan Assessment & Plan (1) Bipolar disorder: Status: Acute Code(s): F31.9 - Bipolar disorder, unspecified (2) Personality disorder in adult: Status: Acute Code(s): F60.9 - Personality disorder, unspecified Plan The patient is an elderly female, single, with no children on disability for mental illness who became non compliant on her medications for a few days and decompensate with depressive symptoms with suicidal ideation. She was assessed by crisis and transferring to this facility for psychiatric stabilization. Plan 1. Continue with May 01 100 mg p.o. b.i.d.. 2. Continue with the rest of the medications. 3. Start discharge planning 4. Start Haldol 2 mg p.o. q.h.s.. 5. EKG for morning Friday Reason for continued inpatient stay Substantial Risk for: inability to function, rapid decompensation and med/psych decompensation Time Spent With Patient Time: Total time managing care of this patient today __20__ minutes.
--- NOTE | 2023-10-10 16:27 | PC.NURSE ---
EKG called x 2 for EKG ordered today and was instructed that it would be completed by the end of day however it has not been completed. MD Carrion notified.
[2023-10-10 18:00] VITALS: BP 133/61; PULSE 86; RESP 17; TEMP 36.4; O2SAT 100
[2023-10-10] MEDS: lamoTRIgine 25 MG TABLET PO (18:09)
[2023-10-10] MEDS: HaloperidoL 1 MG TABLET 2 MG PO (20:23)
[2023-10-10] MEDS: lamoTRIgine 100 MG TABLET 200 MG PO (20:23)
[2023-10-10] MEDS: traZODone HCL 50 MG TABLET PO (20:23)
[2023-10-11] MEDS: Levothyroxine Sodium 125 MCG TABLET PO (05:41)
[2023-10-11] MEDS: Omeprazole/Na Bicarb Oral Susp 20 MG/10 ML UD Cup PO (05:41)
[2023-10-11 07:55] VITALS: BP 143/84; PULSE 84; RESP 18; TEMP 36.8; O2SAT 98
[2023-10-11] MEDS: Trihexyphenidyl HCL 2 MG TABLET PO (08:30)
[2023-10-11] MEDS: Multivitamin TABLET 1 TAB PO (08:30)
[2023-10-11] MEDS: Atorvastatin Calcium 20 MG TABLET PO (08:30)
[2023-10-11] MEDS: Cholecalciferol (Vitamin D3) 25 MCG TABLET PO (08:30)
[2023-10-11] MEDS: lamoTRIgine 25 MG TABLET 50 MG PO (08:30)
[2023-10-11] MEDS: Ziprasidone 20 MG CAPSULE PO ×2 (08:30→20:46)
[2023-10-11] MEDS: Ziprasidone 80 MG CAPSULE PO ×2 (08:30→20:46)
[2023-10-11] MEDS: clonazePAM 0.5 MG TABLET PO (12:33)
--- NOTE | 2023-10-11 13:07 | HO.PSYCHPN ---
Subjective Subjective Date of Service: 10/11/23 Reason For Visit: Mood Disorder Subjective Notes: Conditional Voluntary Interim History: patient denies suicidal or homicidal ideation she reports sporadic auditory hallucinations. she reported some anxiety about discharge. Pt tolerating haldol with no reported adverse effect. Pt BP high - ekg scheduled for friday. Medication Compliance: Yes Side effects from medications: No Attending Groups: Intermittent Review of Systems Acute medical concerns: No Medical Review of Systems: unchanged Review of Systems Review of Systems Constitutional : No Weight loss, No Fever, No Chills, No Night Sweats, No Fatigue, No Malaise ENT/Mouth : No Hearing loss, No Ear Pain, No Nasal Congestion, No Sinus Pain, No Hoarseness, No sore throat, No Rhinorrhea, No Swallowing Difficulty Eyes: No Eye Pain, No Swelling, No Redness, No Foreign Body, No Discharge, No Vision Changes Cardiovascular : No Chest Pain, No SOB, No Dyspnea on Exertion, No Orthopnea, No Edema, No Palpitations Respiratory : No Cough, No Sputum, No Wheezing, No Smoke Exposure, No Dyspnea Gastrointestinal : No Nausea, No Vomiting, No Diarrhea, No Constipation, No abdominal Pain, No Hematochezia, No Melena Genitourinary : no irregular bleeding, No Dysuria, No Urinary Frequency, No Hematuria, No Urinary Incontinence, No Urgency, No Flank Pain, No Urinary Flow Changes, No Hesitancy Musculoskeletal : No joint pain, No Myalgias, No Joint Swelling Skin : No Skin Lesions, No rash Neuro : No Weakness, No Numbness, No Paresthesias, No Loss of Consciousness, No Dizziness, No Headache Psych : No Anxiety/Panic, stop taking medications, denies SI or HI, patient believes she is anorexic Heme/Lymph: No Bruising, No Bleeding,No Lymphadenopathy Endocrine : No Polyuria, No Polydipsia, No Temperature Intolerance Yes all other systems are reviewed and are negative Mental Status Exam Mental Status Exam Patient Appearance: Well Grooomed and Appropriate Patient Orientation: Person, Place and Situation Level of Consciousness: Awake and Appropriate Patient Behavior: Guarded and Passive Mood Description: Withdrawn Affect Description: Constricted Patient Cognition Impaired: No Ability to Follow Directions: Good Speech Pattern: Clear Hallucinations: Auditory Thought Process: Goal Oriented Thought Content: positive for Goal Oriented Judgement: Fair Diagnostics Vital Signs (24Hr): Vital Signs - 24 hr 10/10/23 18:00 10/11/23 07:55 Temperature 97.6 F 98.2 F Pulse Rate 86 84 Respiratory Rate 17 18 Blood Pressure 133/61 143/84 H Pulse Oximetry 100 98 Oxygen Delivery Method Room Air Room Air BMI result Body Mass Index 22.2 Labs 09/29/23 20:01 10/01/23 07:41 Medications Medications Current Medications Acetaminophen (Acetaminophen 325 Mg Tablet) 650 mg PO Q6H PRN PRN Reason: Headache/Pain Mild Scale (1-3) Last Admin: 10/10/23 09:13 Dose: 650 mg Al Hydroxide/Mg Hydroxide (Magnesium Hydrox/Alum Hydrox 30 Ml Oral.Susp) 30 ml PO Q6H PRN PRN Reason: Heartburn/Nausea Atorvastatin Calcium (Atorvastatin Calcium 20 Mg Tablet) 20 mg PO DAILY [facility] Last Admin: 10/11/23 08:30 Dose: 20 mg Calcium Carbonate (Calcium Carbonate 500 Mg Tablet) 500 mg PO DAILY [facility] Last Admin: 10/11/23 08:30 Dose: 500 mg Clonazepam (Clonazepam 0.5 Mg Tablet) 0.5 mg PO TID PRN PRN Reason: anxiety Last Admin: 10/11/23 12:33 Dose: 0.5 mg Haloperidol (Haloperidol 1 Mg Tablet) 2 mg PO BEDTIME [facility] Last Admin: 10/10/23 20:23 Dose: 2 mg Hydroxyzine HCl (Hydroxyzine Hcl 25 Mg Tablet) 25 mg PO Q6H PRN PRN Reason: Anxiety Lamotrigine (Lamotrigine 25 Mg Tablet) 50 mg PO DAILY [facility] Last Admin: 10/11/23 08:30 Dose: 50 mg Lamotrigine (Lamotrigine 25 Mg Tablet) 25 mg PO DAILY@1900 [facility] Last Admin: 10/10/23 18:09 Dose: 25 mg Lamotrigine (Lamotrigine 100 Mg Tablet) 200 mg PO BEDTIME [facility] Last Admin: 10/10/23 20:23 Dose: 200 mg Levothyroxine Sodium (Levothyroxine Sodium 125 Mcg Tablet) 125 mcg PO DAILY@0600 [facility] Last Admin: 10/11/23 05:41 Dose: 125 mcg Magnesium Hydroxide (Milk Of Magnesia 30 Ml Oral.Susp) 30 ml PO TID PRN PRN Reason: Constipation Last Admin: 10/09/23 10:07 Dose: 30 ml Multivitamins/Vitamin C (Multivitamin Tablet) 1 tab PO DAILY [facility] Last Admin: 10/11/23 08:30 Dose: 1 tab Omeprazole (Omeprazole/Na Bicarb Oral Susp 20 Mg/10 Ml Ud Cup) 20 mg PO DAILY@0630 [facility] Last Admin: 10/11/23 05:41 Dose: 20 mg Trazodone HCl (Trazodone Hcl 50 Mg Tablet) 50 mg PO BEDTIME MRX1 PRN PRN Reason: Insomnia Last Admin: 10/10/23 20:23 Dose: 50 mg Trihexyphenidyl HCl (Trihexyphenidyl Hcl 2 Mg Tablet) 2 mg PO DAILY [facility] Last Admin: 10/11/23 08:30 Dose: 2 mg Vitamin D (Cholecalciferol (Vitamin D3) 25 Mcg Tablet) 25 mcg PO DAILY [facility] Last Admin: 10/11/23 08:30 Dose: 25 mcg Ziprasidone (Ziprasidone 80 Mg Capsule) 80 mg PO BID [facility] Last Admin: 10/11/23 08:30 Dose: 80 mg Ziprasidone (Ziprasidone 20 Mg Capsule) 20 mg PO BID [facility] Last Admin: 10/11/23 08:30 Dose: 20 mg Allergies Allergies Allergy/AdvReac Type Severity Reaction Status Date / Time Penicillins [PENICILLINS] Allergy Severe HIVES Verified 03/12/22 08:56 sulfamethoxazole Allergy Severe DIARRHEA Verified 03/12/22 08:56 [From BACTRIM] trimethoprim [From BACTRIM] Allergy Severe DIARRHEA Verified 03/12/22 08:56 aripiprazole [From ABILIFY] Allergy Intermediate ATAXIA Verified 03/12/22 08:56 aspirin [ASPIRIN] Allergy Intermediate STOMACH Verified 03/12/22 08:56 CRAMPS benztropine [From COGENTIN] Allergy Intermediate CONFUSION, Verified 03/12/22 08:56 memory loss bupropion [BUPROPION] Allergy Intermediate DIZZINESS Verified 03/12/22 08:56 erythromycin base Allergy Intermediate GI UPSET Verified 03/12/22 08:56 [ERYTHROMYCIN BASE] ibuprofen [From MOTRIN] Allergy Intermediate STOMACH Verified 03/12/22 08:56 CRAMPS olanzapine [From ZYPREXA] Allergy Intermediate TONGUE Verified 03/12/22 08:56 MOVEMENTS perphenazine [From TRILAFON] Allergy Intermediate ARM AND Verified 03/12/22 08:56 LEG MOVEMENTS, FALL risperidone [From RISPERDAL] Allergy Intermediate TONGUE Verified 03/12/22 08:56 MOVEMENT egg AdvReac Stomach Verified 09/29/23 18:15 Upset From INDERAL Allergy Intermediate WHEEZING Uncoded 03/12/22 08:56 Assessment & Plan Assessment & Plan (1) Bipolar disorder: Status: Acute Code(s): F31.9 - Bipolar disorder, unspecified (2) Personality disorder in adult: Status: Acute Code(s): F60.9 - Personality disorder, unspecified Plan The patient is an elderly female, single, with no children on disability for mental illness who became non compliant on her medications for a few days and decompensate with depressive symptoms with suicidal ideation. She was assessed by crisis and transferring to this facility for psychiatric stabilization. Plan 1. Continue with May 01 100 mg p.o. b.i.d.. 2. Continue with the rest of the medications. 3. Start discharge planning 4. Start Haldol 2 mg p.o. q.h.s.. 5. EKG for morning Friday Reason for continued inpatient stay Substantial Risk for: harm to self and inability to function Time Spent With Patient Time: Total time managing care of this patient today ____ minutes.
[2023-10-11] MEDS: lamoTRIgine 25 MG TABLET PO (18:21)
[2023-10-11 19:44] VITALS: BP 136/65; PULSE 79; RESP 16; TEMP 36.3; O2SAT 100
[2023-10-11] MEDS: lamoTRIgine 100 MG TABLET 200 MG PO (20:46)
[2023-10-11] MEDS: HaloperidoL 1 MG TABLET 2 MG PO (20:46)
[2023-10-11] MEDS: traZODone HCL 50 MG TABLET PO (20:46)
[2023-10-12] MEDS: Omeprazole/Na Bicarb Oral Susp 20 MG/10 ML UD Cup PO (06:46)
[2023-10-12] MEDS: Levothyroxine Sodium 125 MCG TABLET PO (06:46)
[2023-10-12 08:00] VITALS: BP 133/83; PULSE 98; RESP 18; TEMP 36.8; O2SAT 95
[2023-10-12] MEDS: Ziprasidone 80 MG CAPSULE PO ×2 (08:33→21:09)
[2023-10-12] MEDS: Trihexyphenidyl HCL 2 MG TABLET PO (08:33)
[2023-10-12] MEDS: lamoTRIgine 25 MG TABLET 50 MG PO (08:33)
[2023-10-12] MEDS: Ziprasidone 20 MG CAPSULE PO ×2 (08:33→21:09)
[2023-10-12] MEDS: Cholecalciferol (Vitamin D3) 25 MCG TABLET PO (08:34)
[2023-10-12] MEDS: Multivitamin TABLET 1 TAB PO (08:34)
[2023-10-12] MEDS: Atorvastatin Calcium 20 MG TABLET PO (08:34)
[2023-10-12 18:00] VITALS: BP 144/71; PULSE 102; RESP 18; TEMP 37.3; O2SAT 98
[2023-10-12] MEDS: lamoTRIgine 25 MG TABLET PO (18:12)
[2023-10-12] MEDS: HaloperidoL 1 MG TABLET 2 MG PO (21:08)
[2023-10-12] MEDS: traZODone HCL 50 MG TABLET PO (21:09)
[2023-10-12] MEDS: lamoTRIgine 100 MG TABLET 200 MG PO (21:09)
[2023-10-12] MEDS: hydrOXYzine HCL 25 MG TABLET PO (21:09)
[2023-10-13] MEDS: traZODone HCL 50 MG TABLET PO (00:32)
[2023-10-13] MEDS: clonazePAM 0.5 MG TABLET PO (05:38)
[2023-10-13] MEDS: Omeprazole/Na Bicarb Oral Susp 20 MG/10 ML UD Cup PO (05:38)
[2023-10-13] MEDS: Levothyroxine Sodium 125 MCG TABLET PO (05:38)
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
--- NOTE | 2023-10-13 08:00 | ECG_ITS ---
Test Reason : qtc Blood Pressure : / mmHG Vent. Rate : 072 BPM Atrial Rate : 072 BPM P-R Int : 180 ms QRS Dur : 082 ms QT Int : 404 ms P-R-T Axes : 076 -05 054 degrees QTc Int : 442 ms Normal sinus rhythm Normal ECG When compared with ECG of 01-OCT-2023 09:21, No significant change was found Referred By: Jhon Carrion Electronically Signed By:ELLIE BALL MD
[2023-10-13] MEDS: Ziprasidone 80 MG CAPSULE PO (08:54)
[2023-10-13] MEDS: Multivitamin TABLET 1 TAB PO (08:54)
[2023-10-13] MEDS: Cholecalciferol (Vitamin D3) 25 MCG TABLET PO (08:54)
[2023-10-13] MEDS: Ziprasidone 20 MG CAPSULE PO (08:54)
[2023-10-13] MEDS: lamoTRIgine 25 MG TABLET 50 MG PO (08:54)
[2023-10-13] MEDS: Atorvastatin Calcium 20 MG TABLET PO (08:55)
[2023-10-13] MEDS: Trihexyphenidyl HCL 2 MG TABLET PO (08:55)
== END 2023-10-13 10:40 | disposition home or self-care (01) | DRG 885 ==
LOC: HO.ED 18:31 → HO.PGERI 09-30 12:11
PROVIDERS: Emergency Medicine; Admitting Provider Psychiatry & Neurology Psychiatry; Emergency Provider Emergency Medicine; PCP Family Medicine; Visit Provider Psychiatry & Neurology Psychiatry
DX: F25.0 Schizoaffective disorder, bipolar type (principal); F60.9 Personality disorder, unspecified; E03.9 Hypothyroidism, unspecified; Z91.148 Patient's other noncompliance with medication regimen for other reason; Z20.822 Contact with and (suspected) exposure to COVID-19; Z87.891 Personal history of nicotine dependence; Z79.890 Hormone replacement therapy; Z79.899 Other long term (current) drug therapy
CPT/HCPCS: 36415; 80048; 80053; 80061; 80076; 80143; 80179; 80307; 81001; 85025; 87086; 87635; 90686; 93005; 99285; S9485

== ENCOUNTER → 2023-09-30 12:06 | Outpatient (BNV) | payer MEDICARE, MEDICAID, SELFPAY | PROVIDERS: Admitting Provider Psychiatry & Neurology Psychiatry; Emergency Provider Emergency Medicine; PCP Family Medicine; Visit Provider Psychiatry & Neurology Psychiatry | DX: F60.9 Personality disorder, unspecified (principal); F31.4 Bipolar disorder, current episode depressed, severe, without psychotic features | CPT/HCPCS: 90792; 99231; 99232; 99238 ==

== ENCOUNTER 2023-10-15 15:08 | Emergency (ER) | payer MEDICARE, MEDICAID, SELFPAY ==
--- NOTE | 2023-10-15 15:16 | ED.GENADULT ---
HPI - General Adult General Stated complaint: SI THOUGHTS,MEDS NOT WORKING Time Seen by Provider: 10/15/23 15:16 Source: patient and EMS Mode of arrival: EMS Limitations: no limitations History of Present Illness HPI narrative: Patient is a 63 year old assigned female at with a history of bipolar disorder presenting to the emergency department today with suicidal ideation and feeling as though her medications are not working. Patient states that she feels more like harming herself then she did before and her medications are not working. Patient denies any dizziness, lightheadedness, abdominal pain, nausea, vomiting, fever, chills, blurry vision, double vision, loss of vision, chest pain, difficulty breathing, shortness of breath, back pain, night sweats, pain with urination, increased urinary frequency, increased urinary urgency, blood in her urine or stool, syncope or a near syncopal episode, recent trauma or falls, bowel incontinence, bladder incontinence, bowel retention, bladder retention, or any other complaints at this time. Relieving factors: none Exacerbating factors: none Associated symptoms: denies other symptoms Treatments prior to arrival: none Related Data Previous Rx's Medication Instructions Recorded Benjy-600 1 tab PO DAILY 30 days #30 tabs 10/13/23 cholecalciferol (vitamin D3) 25 25 mcg PO DAILY 30 days #30 caps 10/13/23 mcg (1,000 unit) capsule (Vitamin D3) clonazepam 0.5 mg tablet 1 tab PO TID PRN anxiety 30 days 10/13/23 #90 tabs coenzyme Q10 100 mg capsule 100 mg PO DAILY 30 days #30 caps 10/13/23 (CoQ-10) haloperidol 1 mg tablet 2 mg (2 x 1 mg) PO BEDTIME 30 days 10/13/23 #60 tabs lamotrigine 100 mg tablet 2 tab PO BEDTIME 30 days #60 tabs 10/13/23 lamotrigine 25 mg tablet 2 tab PO QAM 30 days #60 tabs 10/13/23 lamotrigine 25 mg tablet 25 mg PO DAILY@1900 30 days #30 10/13/23 tabs levothyroxine 125 mcg tablet 125 mcg PO DAILY 30 days #30 tabs 10/13/23 multivitamin 1 tab PO DAILY 30 days #30 tabs 10/13/23 omeprazole 20 mg capsule,delayed 1 cap PO DAILY 30 days #30 caps 10/13/23 release simvastatin 40 mg tablet 1 tab PO DAILY 30 days #30 tabs 10/13/23 trazodone 50 mg tablet 50 mg PO BEDTIME MRX1 PRN Insomnia 10/13/23 30 days #60 tabs trihexyphenidyl 2 mg tablet 1 tab PO QAM 30 days #30 tabs 10/13/23 ziprasidone HCl 20 mg capsule 20 mg PO BID #60 caps 10/13/23 ziprasidone HCl 20 mg capsule 80 mg (4 x 20 mg) PO BID #60 caps 10/13/23 Allergies Allergy/AdvReac Type Severity Reaction Status Date / Time Penicillins [PENICILLINS] Allergy Severe HIVES Verified 03/12/22 08:56 sulfamethoxazole Allergy Severe DIARRHEA Verified 03/12/22 08:56 [From BACTRIM] trimethoprim [From BACTRIM] Allergy Severe DIARRHEA Verified 03/12/22 08:56 aripiprazole [From ABILIFY] Allergy Intermediate ATAXIA Verified 03/12/22 08:56 aspirin [ASPIRIN] Allergy Intermediate STOMACH Verified 03/12/22 08:56 CRAMPS benztropine [From COGENTIN] Allergy Intermediate CONFUSION, Verified 03/12/22 08:56 memory loss bupropion [BUPROPION] Allergy Intermediate DIZZINESS Verified 03/12/22 08:56 erythromycin base Allergy Intermediate GI UPSET Verified 03/12/22 08:56 [ERYTHROMYCIN BASE] ibuprofen [From MOTRIN] Allergy Intermediate STOMACH Verified 03/12/22 08:56 CRAMPS olanzapine [From ZYPREXA] Allergy Intermediate TONGUE Verified 03/12/22 08:56 MOVEMENTS perphenazine [From TRILAFON] Allergy Intermediate ARM AND Verified 03/12/22 08:56 LEG MOVEMENTS, FALL risperidone [From RISPERDAL] Allergy Intermediate TONGUE Verified 03/12/22 08:56 MOVEMENT egg AdvReac Stomach Verified 09/29/23 18:15 Upset From INDERAL Allergy Intermediate WHEEZING Uncoded 03/12/22 08:56 Review of Systems Constitutional: Constitutional: Reports no additional constitutional complaints, Denies chills, Denies fever(s) and Denies night sweats Eyes: Eyes: Reports no additional eye complaints, Denies blurry vision, Denies change in vision, Denies diplopia, Denies eye discharge, Denies loss of vision and Denies eye pain ENT: Denies dizziness Cardiovascular: Cardiovascular: Reports no additional cardiovascular complaints, Denies chest pain, Denies lightheadedness, Denies Loss of Consciousness and Denies dyspnea Respiratory: Respiratory: Reports no additional respiratory complaints and Denies dyspnea Gastrointestinal: Gastrointestinal: Reports no additional gastrointestinal complaints, Denies abdominal pain, Denies melena, Denies hematochezia, Denies change in bowel habits and Denies change in stool character Genitourinary: Genitourinary: Denies hematuria, Denies urinary frequency, Denies dysuria, Denies urinary incontinence, Denies urinary hesitancy and Denies urinary urgency Musculoskeletal: Musculoskeletal: Reports no additional musculoskeletal complaints, Denies numbness and Denies tingling Neurologic: Denies dizziness, Denies loss of vision, Denies numbness and Denies tingling Psychiatric: Psychiatric: Denies homicidal ideation and Reports suicidal ideation Endocrine: Endocrine: Reports no additional endocrine complaints Hematologic/Lymphatic: Hematologic/Lymphatic: Reports no additional hematologic/lymphatic complaints Allergic/Immunologic: Allergic/Immunologic: Reports no additional allergic/immunologic complaints PMFSH Past Medical History Attestation statement: The following information was validated with the patient. Source: old records reviewed and nursing notes reviewed Medical History Bipolar disorder Neck pain Murmur GERD (gastroesophageal reflux disease) Hypothyroidism Irritable bowel syndrome (IBS) Hyperlipidemia Anxiety and depression Post traumatic stress disorder (PTSD) Dissociative identity disorder Surgical History Hx of colonoscopy History of total thyroidectomy Social History Social History Household Members: None Housing: Apartment Are you a primary cardiac care nurse to a significant other at home: No Do you presently have visiting nurse or other home services: Yes (Laundry service, general fourdrinier operator, meals on wheels.) Patient Tobacco Use Status: Former Tobacco user Quit Date: 20 years ago Tobacco use type: Cigarette Cigarette Packs Per Day: 1 Cigarettes Per Day: 20.0 Years Smoked: 20 e-Cigarette/Vaping Use: Never Used Second Hand Smoke Exposure: No service: No Sexual orientation: Did not discuss Physical Exam ED Const General: cooperative, no acute distress, alert and awake Nutritional Appearance: well nourished Orientation/consciousness: patient oriented x3 Limitations: no limitations HENMT Head: Yes normal to inspection and Yes atraumatic Ears: hearing grossly normal bilaterally and external ears normal General nose exam: Normal external nose present, no nasal discharge noted and no epistaxis Face and sinus: Yes normal facial exam, No abrasion and No laceration Mouth: Normal oral and palatal mucosa present, no drooling and no muffled voice Eyes General: appearance normal, both eyes and all related structures Periorbital: periorbital findings normal Eyelids: Yes eyelids normal Conjunctivae: conjunctivae normal Pupils: Equal, round and reactive pupils present EOM: EOMs intact bilaterally Neck Neck: Yes normal visual inspection, Yes full ROM and Yes no lymphadenopathy Chest Chest palpation & inspection: normal inspection of the chest Resp Effort & Inspection: normal respiratory effort and able to speak in complete sentences GI Inspection: Yes normal to inspection Neuro General: patient oriented x3 and moves all extremities Cranial nerves: Yes Equal, round and reactive pupils present Cognition (Neuro): normal cognition Motor exam (neuro): 5/5 motor strength present throughout Sensory Exam: Normal double simultaneous stimulation for sensation Coordination: [id number] test normal Extrem General: Yes normal to inspection, Yes full ROM and Yes capillary refill normal Psych Attitude: cooperative Thought process: Confabulating thought process present Thought content: Suicidality present Medical Decision Making Medical Decision Making MDM Narrative: Patient is a 63 year old assigned female at with a history of bipolar disorder presenting to the emergency department today with suicidal ideation and concerns that the medication is not working. Patient's physical exam was as noted in the physical exam portion of this note. Patient's blood work is pending. Patient's urine is pending. Patient's disposition will depend on lab results and CARE team evaluation. Differential Diagnosis Differential Diagnoses: The differential diagnosis associated with the presentation includes Suicidal ideation Medication non-compliance Admission/Observation Consideration of admission/observation: Escalation of care including admission/observation considered Disposition will be determined after lab work results and CARE team eval occurs. Independent Historian Clinical information obtained from an independent historian. History obtained from or confirmed by: EMS (EMS provided additional history and confirmed the history provided by the patient.) Discharge Plan Discharge Clinical Impression: Suicidal ideation Patient Disposition: Still a Patient Prescriptions: No Action ziprasidone HCl 20 mg Capsule 20 mg PO BID Qty: 60 0RF trazodone 50 mg Tablet 50 mg PO BEDTIME MRX1 PRN (Reason: Insomnia) 30 Days Qty: 60 0RF haloperidol 1 mg Tablet 2 mg PO BEDTIME 30 Days Qty: 60 0RF multivitamin Tablet 1 tab PO DAILY 30 Days Qty: 30 0RF clonazepam 0.5 mg tablet 1 tab PO TID PRN (Reason: anxiety) 30 Days Qty: 90 0RF simvastatin 40 mg tablet 1 tab PO DAILY 30 Days Qty: 30 0RF lamotrigine 25 mg tablet 25 mg PO DAILY@1900 30 Days Qty: 30 0RF lamotrigine 25 mg tablet 2 tab PO QAM 30 Days Qty: 60 0RF ziprasidone HCl 20 mg capsule 80 mg PO BID Qty: 60 0RF levothyroxine 125 mcg tablet 125 mcg PO DAILY 30 Days Qty: 30 0RF omeprazole 20 mg capsule,delayed release(DR/EC) 1 cap PO DAILY 30 Days Qty: 30 0RF trihexyphenidyl 2 mg tablet 1 tab PO QAM 30 Days Qty: 30 0RF lamotrigine 100 mg tablet 2 tab PO BEDTIME 30 Days Qty: 60 0RF cholecalciferol (vitamin D3) [Vitamin D3] 25 mcg (1,000 unit) Capsule 25 mcg PO DAILY 30 Days Qty: 30 0RF coenzyme Q10 [CoQ-10] 100 mg Capsule 100 mg PO DAILY 30 Days Qty: 30 0RF Benjy-600 1 tab PO DAILY 30 Days Qty: 30 0RF
--- NOTE | 2023-10-15 15:22 | ECG_ITS ---
Test Reason : CLEARANCE Blood Pressure : / mmHG Vent. Rate : 063 BPM Atrial Rate : 063 BPM P-R Int : 170 ms QRS Dur : 082 ms QT Int : 412 ms P-R-T Axes : 036 -04 030 degrees QTc Int : 421 ms Normal sinus rhythm Intra-ventricular conduction delay Otherwise normal ECG When compared with ECG of 13-OCT-2023 08:32, QRS duration has increased Referred By: Rosemary Mcgee Electronically Signed By:ELLIE BALL MD
[2023-10-15 16:24] VITALS: BP 104/55; PULSE 78; RESP 16; TEMP 36.8; O2SAT 98
[2023-10-15 16:34] VITALS: BP 114/57; BP 130/78; PULSE 105; PULSE 87; RESP 16; TEMP 36.4; O2SAT 96; O2SAT 97; BMI 35.2
[2023-10-15 17:00] LABS: MANUAL DIFF FLAG NO
[2023-10-15 17:07] LABS: Basophils Percent Auto 0.5 % (0-2); Eosinophils Absolute Auto 0.1 X10*3/uL (0.0-0.4); Eosinophils Percent Auto 1.5 % (0-4); Hematocrit 33.4 % (37.0-47.0); Hemoglobin 11.4 g/dl (12.0-16.0); Imm Gran Abs Auto 0.01 X10*3/uL (0.00-0.03); Imm Gran Pct Auto 0.2 % (0.0-0.4); Lymphocytes Absolute Auto 1.4 X10*3/uL (1.2-4.9); Lymphocytes Percent Auto 21.2 % (20-40); Mean Corpuscular HGB Conc 34.1 g/dl (31.0-35.0); Mean Corpuscular Hemoglobin 30.9 pg (27.0-33.0); Mean Corpuscular Volume 90.5 fL (80.0-98.0); Monocytes Absolute Auto 0.5 X10*3/uL (0.1-1.2); Monocytes Percent Auto 8.2 % (2-11); Neutrophils Absolute Auto 4.5 x10*3/uL (2.0-8.3); Neutrophils Percent Auto 68.4 % (45-73); Platelet Count 204 X10*3/uL (160-400); Red Blood Count 3.69 X10*6/uL (4.20-5.50); Red Cell Distribution Width 11.9 % (11.0-16.0); White Blood Count 6.5 X10*3/uL (4.8-10.8)
[2023-10-15 17:21] LABS: Appearance Urine Clear; Color Urine Yellow; Glucose Urine UA Negative (Negative); Leukocyte Esterase Urine Negative (Negative); Nitrite Urine Negative (Negative); PH 6.5 (5.0-9.0); Urine Blood Negative (Negative); Urine Ketones Negative (Negative); Urine Protein Negative (Neg-Trace)
[2023-10-15 17:27] LABS: Amphetamine Screen Urine Not Detected (Not Detect); Barbiturates, Urine Not Detected (Not Detect); Benzodiazepines Screen Urine Not Detected (Not Detect); Cannabinoid Screen Urine Not Detected (Not Detect); Cocaine Screen Urine Not Detected (Not Detect); Fentanyl, urine Not Detected (Not Detect); Opiate Screen Urine Not Detected (Not Detect); Phencyclidine Screen Urine Not Detected (Not Detect)
[2023-10-15 17:31] LABS: Alanine Aminotransferase 15 U/L (0-31); Albumin Level 4.2 g/dL (3.5-5.0); Alkaline Phosphatase 34 U/L (39-117); Anion Gap 11 (12-20); Aspartate Amino Transferase 21 U/L (5-31); Bilirubin Total 0.3 mg/dL (0.0-1.0); Blood Urea Nitrogen 17 mg/dL (9-16); Calcium 9.4 mg/dL (8.4-10.2); Carbon Dioxide 29 mmol/L (22-29); Chloride 107 mmol/L (96-108); Creatinine Clr Calc Pharmacy 28.6; Estimated Glomerular Filt Rate 27; Ethanol < 10 mg/dL; Glucose Random 124 mg/dL (60-115); Sodium 143 mmol/L (135-145); Total Protein 6.4 g/dL (6.5-8.0)
[2023-10-15 17:32] LABS: COVID-19 Test Negative (Negative); IDNOW Serial# BCCEAD1C
[2023-10-15 18:12] LABS: Acetaminophen LAB < 3 mcg/mL (<30); Salicylate < 5.0 mg/dL (15-30)
--- NOTE | 2023-10-15 20:10 | PC.NURSE ---
Care team with pt. Pt requesting home meds. This RN pavan boone ED Pharmacist regarding med rec.
--- NOTE | 2023-10-15 20:11 | PHA.MEDREC ---
Pharmacy Consult ? Medication Reconciliation Pharmacy has completed the medication reconciliation. Patient just discharge from [facility] on 10/13, used discharge summary for med rec. Rekha Pimentel, LadanD
[2023-10-15] MEDS: lamoTRIgine 100 MG TABLET 200 MG PO (21:48)
[2023-10-15] MEDS: Ziprasidone 20 MG CAPSULE PO (21:48)
[2023-10-15] MEDS: HaloperidoL 1 MG TABLET 2 MG PO (21:48)
[2023-10-15] MEDS: Ziprasidone 80 MG CAPSULE PO (21:48)
--- NOTE | 2023-10-15 21:58 | PC.NURSE ---
Pt medicated per jan. Pt requested and given blankets. Plan of care ongoing.
--- NOTE | 2023-10-15 22:24 | PC.NURSE ---
Pt ambulated to the restroom with a steady gait.
[2023-10-16] MEDS: Omeprazole 20 MG CAPSULE.DR PO (06:16)
[2023-10-16] MEDS: Levothyroxine Sodium 125 MCG TABLET PO (06:16)
--- NOTE | 2023-10-16 06:23 | PC.NURSE ---
Pt medicated per jan. Plan of care ongoing.
--- NOTE | 2023-10-16 06:24 | PC.NURSE ---
Pt ambulated to the restroom with a steady gait.
[2023-10-16 07:53] VITALS: BP 125/50; PULSE 74; RESP 14; TEMP 36.4; O2SAT 99
[2023-10-16] MEDS: Cholecalciferol (Vitamin D3) 25 MCG TABLET PO (09:51)
[2023-10-16] MEDS: Multivitamin TABLET 1 TAB PO (09:51)
[2023-10-16] MEDS: lamoTRIgine 25 MG TABLET 50 MG PO (09:51)
[2023-10-16] MEDS: Atorvastatin Calcium 20 MG TABLET PO (09:52)
[2023-10-16] MEDS: Trihexyphenidyl HCL 2 MG TABLET PO (10:15)
[2023-10-16] MEDS: Ziprasidone 80 MG CAPSULE PO ×2 (10:15→21:06)
[2023-10-16] MEDS: Ziprasidone 20 MG CAPSULE PO ×2 (10:15→21:06)
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
--- NOTE | 2023-10-16 13:20 | MHC.CARE ---
[facility] referral faxed
[2023-10-16 14:51] VITALS: RESP 16
[2023-10-16] MEDS: clonazePAM 0.5 MG TABLET PO (16:00)
[2023-10-16] MEDS: HaloperidoL 1 MG TABLET 2 MG PO (20:27)
[2023-10-16] MEDS: lamoTRIgine 100 MG TABLET 200 MG PO (20:28)
[2023-10-16] MEDS: lamoTRIgine 25 MG TABLET PO (20:29)
[2023-10-16] MEDS: traZODone HCL 50 MG TABLET PO (21:21)
[2023-10-17] MEDS: Omeprazole 20 MG CAPSULE.DR PO (06:04)
[2023-10-17] MEDS: Levothyroxine Sodium 125 MCG TABLET PO (06:04)
--- NOTE | 2023-10-17 06:47 | PC.NURSE ---
pt slept during the night, ambulatory gait steady
[2023-10-17] MEDS: clonazePAM 0.5 MG TABLET PO (08:01)
[2023-10-17] MEDS: Ziprasidone 20 MG CAPSULE PO (09:58)
[2023-10-17] MEDS: lamoTRIgine 25 MG TABLET 50 MG PO (09:58)
[2023-10-17] MEDS: Ziprasidone 80 MG CAPSULE PO (09:58)
[2023-10-17] MEDS: Cholecalciferol (Vitamin D3) 25 MCG TABLET PO (09:58)
[2023-10-17] MEDS: Multivitamin TABLET 1 TAB PO (09:59)
[2023-10-17] MEDS: Atorvastatin Calcium 20 MG TABLET PO (09:59)
[2023-10-17] MEDS: Trihexyphenidyl HCL 2 MG TABLET PO (09:59)
--- NOTE | 2023-10-17 10:15 | PC.NURSE ---
Patient stated they were anxious this morning and requested PRN with positive effect. Patient reports no SI/HI/VH/AH at this time.
[2023-10-17 10:16] VITALS: RESP 16
[2023-10-17 10:23] VITALS: BP 138/68; PULSE 80; RESP 18; TEMP 36.6; O2SAT 96
--- NOTE | 2023-10-17 11:35 | MHC.CARE ---
patient has been accepted to [facility] adult [facility] unit for today 10/17/23
--- NOTE | 2023-10-17 13:30 | PC.NURSE ---
patient discharged to respite with belongings. Denied SI/HI.
== END 2023-10-17 13:31 ==
PROVIDERS: Physician Assistant Medical; Emergency Provider Emergency Medicine Emergency Medical Services; PCP Family Medicine
DX: R45.851 Suicidal ideations (principal); D64.9 Anemia, unspecified; R94.31 Abnormal electrocardiogram [ECG] [EKG]; Z11.52 Encounter for screening for COVID-19; Z20.822 Contact with and (suspected) exposure to COVID-19; Z87.891 Personal history of nicotine dependence; Z79.899 Other long term (current) drug therapy
CPT/HCPCS: 36415; 80053; 80143; 80179; 80307; 81003; 85025; 87635; 93005; 99285; S9485

== ENCOUNTER → 2023-10-15 16:56 | Outpatient (BNV) | payer MEDICARE, MEDICAID, SELFPAY | PROVIDERS: Emergency Provider Emergency Medicine Emergency Medical Services; PCP Family Medicine; Visit Provider Social Worker | DX: F43.10 Post-traumatic stress disorder, unspecified (principal); F60.9 Personality disorder, unspecified | CPT/HCPCS: 99285 ==

== ENCOUNTER 2023-10-25 01:15 | Inpatient (IN) | payer MEDICARE, MEDICAID, SELFPAY ==
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
--- OUTSIDE RECORDS SUMMARY | 2023-10-25 01:20 | XMS_ITS | Patient Health Record ---
Author Name Unknown Organization [facility] Address [address] [place] [address] Care Team Providers Care Africana Studies Professor Name Role Phone Lino Parker MD Primary Care Provider Abelardo Leong [phone] ALLERGIES Allergen (clinical drug ingredient) Drug/Non Drug Allergy documented on EMR Reaction Allergy Type Onset Date Status sulfamethoxazole / trimethoprim Bactrim Unknown Drug Allergy Active aspirin Aspirin Unknown Drug Allergy Active aripiprazole Abilify Unknown Drug Allergy Acti ve eggs,milk,cheese (uncoded) Unknown Allergy Active Penicillin Unknown Drug Allergy Active Trigofen Unknown Drug Allergy Active olanzapine Zyprexa Unknown Drug Allergy Active Wellbutrin Unknown Drug Allergy Active Motrin Unknown Drug Allergy Active propranolol Inderal LA Unknown Drug Allergy Acti ve erythromycin Erythromycin Unknown Drug Allergy A ctive Cogentin Unknown Drug Allergy Active REASON FOR REFERRAL No Information MEDICATIONS Medication SIG (Take, Route, Frequency, Duration) Notes Start Date End Date Status ProAir HFA Not-Takin g Omeprazole 20 MG TAKE ONE CAPSULE BY MOUTH EVERY DAY Oral for 30 Active Vitamin D3 25 MCG (1000 UT) 1 capsule Orally Once a day for 30 day(s) Active Multivitamin Active CoQ10 100 MG as directed Orally once a day Active Simvastatin 40 MG TAKE ONE CAPSULE BY MOUTH 3 TIMES A DAY WITH FOOD FOR 10 DAYS Orally Once a day Active KlonoPIN 0.5 MG 1 tablet Orally prn/up to three times a day Active LaMICtal 25 MG 2-25mg in the mornin g (2) 100mg in the evening Orally once a day/100mg at bedtime Active Trihexyphenidyl HCl 2 MG 1 tablet Orally once in morning Artane Active Levothyroxine Sodium 100 MCG 1 tablet in the morning on an empty stomach Orally Once a day Active Geodon 80 MG 1 capsule with food Orally Twice a day Active IMMUNIZATIONS Vaccine Route Administration Date Status Comme nts Influenza Unknown 08/01/2021 Administered SOCIAL HISTORY Sex Assigned At : Social History Observation Description Sex Assigned At Unknown PROBLEMS Problem Type ICD Code Onset Dates Problem Status W/U Status Risk SNOMED Code Notes Problem Encounter for screening for malignant neoplasm of colon (Z12.11) Active confirmed 359604752 Problem History of adenomatous polyp of colon (Z86.010) Active confirmed 303361814 Problem Irritable bowel syndrome with diarrhea (K58.0) Active confirmed 191747437 Problem Encounter for screening for malignant neoplasm of rectum (Z12.12) Active confirmed Screening for malignant neoplasm of rectum (961612491) Problem Preprocedural examination (Z01.818) Active confirmed 19643016 Problem Gastroesophageal reflux (K21.9) Active confirmed Esophageal reflux finding (236076064) Problem Diverticulosis of colon (K57.30) Active confirmed Diverticulosi s of colon (068247185) Problem Gastroesophageal reflux disease, unspecified whether esophagitis present (K21.9) Active confirmed 950749488 Encounters Encounter Location Date Provider Diagnosis [facility] [address] [place] [address] 06/25/2023 Abelardo Sal PLAN OF TREATMENT Pending Test Test Name Order Date CLOSTRIDIUM DIFF TOXIN A&B (C DIFF) 06/02 STOOL WBC 06/29/2015 CELIAC PANEL #10 05/23/2015 OVA & PARASITES (O&P) 06/29/2015 CULTURE, STOOL 06/29/2015 Future Test Test Name Order Date COLONOSCOPY 07/25/2016 UPPER GI ENDOSCOPY 02/14/2022 COLONOSCOPY 02/14/2022 Insurance Providers Payer Name Payer Address Payer Phone Subscriber Number Group Number Insured Name Patient Relationship to Insured Coverage Start Date Coverage End Date MEDICA[employer] OF [employer] [address] [place] [address] [phone] [id number] KAY CASIANO Self - patient is the insured MEDICAL (GENERAL) HISTORY Medical History History ICD Code Screening colonoscopy 010--1.2cm sigmoid tubular adenoma, sigmoid diverticulosis, internal hemorrhoids PTSD, Disassociative identit y disorder, Depression, Bipolar disease--Dr. Adelina Shoemaker Hyperlipidemia Denies IA,DM,CVA,Lung disease,renal dise ase Hypothyroid in relation to thyroidectomy for thyroid cancer as below IBS--neg. celiac disease labs in 05/2015 Negative colonoscopy in 10/2016 Surgical History Surgery Date(Month/Year) Total thyroidectomy--cancer
--- OUTSIDE RECORDS SUMMARY | 2023-10-25 01:20 | XMS_ITS | Continuity of Care Document ---
Author Name Unknown Organization [facility] Address [address] [place] [address]- Care Team Providers Care French Drawer Name Role Phone Keith NOBLE, Lino Perez Primary Care Physician [phone] Encounter 11/02/21 - 02/15/22 [facility] [address], [address] [place] [address]- Attending Physician: Kay Spain MD Admitting Physician: Kay Spain MD Referring Physician: Kay Spain MD Allergies, Adverse Reactions, Alerts Substance Reaction Severity Status erythromycin Active aspirin Active penicillins Active Motrin Active Inderal Active Trilafon Active Wellbutrin Active Cogentin Active Bactrim Active Resperal Active ZyPREXA Active ZyrTEC Active Medications Geodon Capsule 0 Refills, Maintenance Start Date: 12/25/11 Status: Ordered KLONopin Tablet By Mouth, 3 times a day, 0 Refills, Maintenance Start Date: 12/25/11 Status: Ordered KLONopin Tablet By Mouth, 3 times a day, 0 Refills, Maintenance Start Date: 12/25/11 Status: Ordered Lamictal Tablet By Mouth, 2 times a day, Maintenance, 12/25/11 11:32:38 Start Date: 12/25/11 Status: Ordered Levothyroxine Daily, 0 Refills, Maintenance Start Date: 12/25/11 Status: Ordered Lithobid 600 mg, By Mouth, 2 times a day, Maintenance, 01/22/12 13:13:56 Start Date: 01/22/12 Status: Ordered Simvastatin By Mouth, Daily at bedtime, 0 Refills, Maintenance Start Date: 12/25/11 Status: Ordered Problem List Condition Effective Dates Status Health Status Inform ant Routine Gynecological Examination(Confirmed) Active
[2023-10-25 01:30] VITALS: BP 148/68; PULSE 71; RESP 18; TEMP 36.3; O2SAT 97
[2023-10-25] MEDS: traZODone HCL 50 MG TABLET PO ×2 (03:30→22:56)
[2023-10-25 05:20] VITALS: BMI 21.8
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
[2023-10-25 07:55] VITALS: BP 130/61; PULSE 80; RESP 20; TEMP 36.2; O2SAT 98
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
[2023-10-25] MEDS: Levothyroxine Sodium 125 MCG TABLET PO (10:16)
[2023-10-25] MEDS: Ziprasidone 80 MG CAPSULE PO (10:51)
[2023-10-25] MEDS: Trihexyphenidyl HCL 2 MG TABLET PO (12:58)
[2023-10-25] MEDS: lamoTRIgine 25 MG TABLET 50 MG PO ×2 (13:25→22:56)
[2023-10-25] MEDS: Ziprasidone 20 MG CAPSULE PO (13:27)
[2023-10-25] MEDS: Ziprasidone 20 MG CAPSULE 100 MG PO (18:18)
[2023-10-25] MEDS: clonazePAM 0.5 MG TABLET PO ×2 (18:25→22:56)
[2023-10-25 21:10] VITALS: BP 121/74; PULSE 85; RESP 18; TEMP 36.3; O2SAT 100
[2023-10-25] MEDS: lamoTRIgine 100 MG TABLET 200 MG PO (22:56)
[2023-10-25] MEDS: HaloperidoL 1 MG TABLET 2 MG PO (22:56)
[2023-10-26] MEDS: traZODone HCL 50 MG TABLET PO ×2 (01:30→21:49)
[2023-10-26 07:40] VITALS: BP 114/72; PULSE 66; RESP 16; TEMP 36.2; O2SAT 99
[2023-10-26] MEDS: Levothyroxine Sodium 125 MCG TABLET PO (08:13)
[2023-10-26] MEDS: Atorvastatin Calcium 20 MG TABLET PO (09:14)
[2023-10-26] MEDS: lamoTRIgine 25 MG TABLET 50 MG PO ×2 (09:14→21:48)
[2023-10-26] MEDS: Omeprazole 20 MG CAPSULE.DR PO (09:15)
[2023-10-26] MEDS: Ziprasidone 20 MG CAPSULE 100 MG PO ×2 (09:15→21:48)
[2023-10-26] MEDS: Trihexyphenidyl HCL 2 MG TABLET PO (09:15)
[2023-10-26] MEDS: Multivitamin TABLET 1 TAB PO (09:15)
[2023-10-26 09:37] LABS: Alanine Aminotransferase 17 U/L (0-31); Albumin Level 4.5 g/dL (3.5-5.0); Alkaline Phosphatase 36 U/L (39-117); Anion Gap 12 (12-20); Aspartate Amino Transferase 18 U/L (5-31); Bilirubin Total 0.3 mg/dL (0.0-1.0); Blood Urea Nitrogen 20 mg/dL (9-16); Calcium 10.1 mg/dL (8.4-10.2); Carbon Dioxide 30 mmol/L (22-29); Chloride 108 mmol/L (96-108); Cholesterol 147 mg/dL (<200); Creatinine Clr Calc Pharmacy 26.6; Estimated Glomerular Filt Rate 29; Glucose Fasting 101 mg/dL (60-99); HDL Cholesterol 50 mg/dL (>40); LDL Cholesterol Calculated 74 mg/dL (<100); Potassium 4.1 mmol/L (3.3-5.1); Sodium 146 mmol/L (135-145); Total Protein 7.1 g/dL (6.5-8.0); Triglycerides 119 mg/dL (<150)
[2023-10-26] MEDS: clonazePAM 0.5 MG TABLET PO ×2 (10:16→15:26)
--- NOTE | 2023-10-26 11:04 | HO.PM.IMCN ---
History of Present Illness Data of Consult Service Date: 10/26/23 Requesting physician: Seth Corcoran Primary Care Provider: Unknown Physician HPI Reason for consult: medical h&p 63-year-old female with history of hypothyroidism, hyperlipidemia, PTSD, mood disorder, personality disorder, GERD, and CKD stage 4 admitted to Psychiatry from [facility] ED on 1125 am with consult placed to hospitalist service for medical H&P. Pt is somnolant and arousable but very drowsy on exam given recent klonipin administration. She would like to go back to sleep. Denies any medical complaints and there does not appear to be any acute medical issues at this time on review of [facility] report. Review of Systems Review of Systems: Yes all other systems are reviewed and are negative [facility] Medical History CKD (chronic kidney disease), stage IV Bipolar disorder Neck pain Murmur GERD (gastroesophageal reflux disease) Hypothyroidism Irritable bowel syndrome (IBS) Hyperlipidemia Anxiety and depression Post traumatic stress disorder (PTSD) Dissociative identity disorder Surgical History Hx of colonoscopy History of total thyroidectomy Household Members: Other Household Members Other:: roommate Housing: Unknown / Unable to assess Are you a primary inpatient care manager rn to a significant other at home: No Do you presently have visiting nurse or other home services: Yes ([facility]) Patient Tobacco Use Status: Former Tobacco user Quit Date: 20 years ago Tobacco use type: Cigarette Cigarette Packs Per Day: 1 Cigarettes Per Day: 20.0 Years Smoked: 20 e-Cigarette/Vaping Use: Never Used Second Hand Smoke Exposure: No Use of substances other than those prescribed or required for medical reasons: No Currently Displaying Signs/Symptoms of Drug Intoxication Withdrawal: No Have you been hit, kicked, punched, or otherwise hurt by someone within the past year? If so, by whom?: No Do you feel safe in your current relationship?: No Current Relationship Is there a partner from a previous relationship who is making you feel unsafe now?: No Are you made to feel afraid or neglected: Yes (her alters ) Advance Directives: No Advance Directives Information Provided: Yes Do you have thoughts of harming others: None Do you have a plan to hurt others: No Plan Recently lost weight without trying: Yes How much weight loss: 2-13 pounds Eating poorly because of decreased appetite: No Nutrition screen score: 3 Nutrition Risks: No Nutritional Risk Patient : No : No service: No Sexual orientation: Straight/Heterosexual Meds Allergies Allergy/AdvReac Type Severity Reaction Status Date / Time Penicillins [PENICILLINS] Allergy Severe HIVES Verified 03/12/22 08:56 sulfamethoxazole Allergy Severe DIARRHEA Verified 03/12/22 08:56 [From BACTRIM] trimethoprim [From BACTRIM] Allergy Severe DIARRHEA Verified 03/12/22 08:56 aripiprazole [From ABILIFY] Allergy Intermediate ATAXIA Verified 03/12/22 08:56 aspirin [ASPIRIN] Allergy Intermediate STOMACH Verified 03/12/22 08:56 CRAMPS benztropine [From COGENTIN] Allergy Intermediate CONFUSION, Verified 03/12/22 08:56 memory loss bupropion [BUPROPION] Allergy Intermediate DIZZINESS Verified 03/12/22 08:56 erythromycin base Allergy Intermediate GI UPSET Verified 03/12/22 08:56 [ERYTHROMYCIN BASE] ibuprofen [From MOTRIN] Allergy Intermediate STOMACH Verified 03/12/22 08:56 CRAMPS olanzapine [From ZYPREXA] Allergy Intermediate TONGUE Verified 03/12/22 08:56 MOVEMENTS perphenazine [From TRILAFON] Allergy Intermediate ARM AND Verified 03/12/22 08:56 LEG MOVEMENTS, FALL risperidone [From RISPERDAL] Allergy Intermediate TONGUE Verified 03/12/22 08:56 MOVEMENT egg AdvReac Stomach Verified 09/29/23 18:15 Upset From INDERAL Allergy Intermediate WHEEZING Uncoded 03/12/22 08:56 Active Medications: Current Medications Acetaminophen (Acetaminophen 325 Mg Tablet) 650 mg PO Q6H PRN PRN Reason: Headache/Pain Mild Scale (1-3) Al Hydroxide/Mg Hydroxide (Magnesium Hydrox/Alum Hydrox 30 Ml Oral.Susp) 30 ml PO Q6H PRN PRN Reason: Heartburn/Nausea Atorvastatin Calcium (Atorvastatin Calcium 20 Mg Tablet) 20 mg PO DAILY NAT Last Admin: 10/26/23 09:14 Dose: 20 mg Clonazepam (Clonazepam 0.5 Mg Tablet) 0.5 mg PO TID PRN PRN Reason: Anxiety Last Admin: 10/26/23 10:16 Dose: 0.5 mg Haloperidol (Haloperidol 1 Mg Tablet) 2 mg PO BEDTIME [facility] Last Admin: 10/25/23 22:56 Dose: 2 mg Hydroxyzine HCl (Hydroxyzine Hcl 50 Mg Tablet) 50 mg PO Q6H PRN PRN Reason: Anxiety Lamotrigine (Lamotrigine 25 Mg Tablet) 50 mg PO DAILY [facility] Last Admin: 10/26/23 09:14 Dose: 50 mg Lamotrigine (Lamotrigine 100 Mg Tablet) 200 mg PO BEDTIME [facility] Last Admin: 10/25/23 22:56 Dose: 200 mg Lamotrigine (Lamotrigine 25 Mg Tablet) 50 mg PO BEDTIME [facility] Last Admin: 10/25/23 22:56 Dose: 50 mg Levothyroxine Sodium (Levothyroxine Sodium 125 Mcg Tablet) 125 mcg PO DAILY@0600 [facility] Last Admin: 10/26/23 08:13 Dose: 125 mcg Magnesium Hydroxide (Milk Of Magnesia 30 Ml Oral.Susp) 30 ml PO DAILY PRN PRN Reason: Constipation Multivitamins/Vitamin C (Multivitamin Tablet) 1 tab PO DAILY [facility] Last Admin: 10/26/23 09:15 Dose: 1 tab Nicotine Polacrilex (Nicotine Polacrilex 2 Mg Gum) 2 mg BUCCAL Q2H PRN PRN Reason: Nicotine Cravings Omeprazole (Omeprazole 20 Mg Capsule.Dr) 20 mg PO DAILY@0630 [facility] Last Admin: 10/26/23 09:15 Dose: 20 mg Trazodone HCl (Trazodone Hcl 50 Mg Tablet) 50 mg PO BEDTIME MRX1 PRN PRN Reason: Insomnia Last Admin: 10/26/23 01:30 Dose: 50 mg Trihexyphenidyl HCl (Trihexyphenidyl Hcl 2 Mg Tablet) 2 mg PO DAILY [facility] Last Admin: 10/26/23 09:15 Dose: 2 mg Ziprasidone (Ziprasidone 20 Mg Capsule) 100 mg PO BID@0800,1700 [facility] Last Admin: 10/26/23 09:15 Dose: 100 mg Home Medications Medication Instructions Recorded Confirmed Last Taken Type ziprasidone HCl 80 mg capsule 80 mg PO BID 10/15/23 10/25/23 Unknown History (Geodon) lamotrigine 100 mg tablet 2 tab PO BEDTIME 10/25/23 10/25/23 Unknown History (Lamictal) Physical Exam Vital Signs and Narrative: Vital Signs: Last Vital Signs Temp 97.2 F 10/26/23 07:40 Pulse 66 10/26/23 07:40 Resp 16 10/26/23 07:40 BP 114/72 10/26/23 07:40 Pulse Ox 99 10/26/23 07:40 O2 Del Method Room Air 10/26/23 07:40 BMI result Body Mass Index 21.8 Constitutional - somnolent but arousable, very drowsy, No apparent distress Pt not agreeable to remainder of physical exam due to drowsiness and desire to sleep Results Labs 10/26/23 08:54 Labs: Laboratory Results - last 24 hr 10/26/23 08:54 Anion Gap 12 Estim Creat Clear Calc 26.6 Estimated GFR 29 Fasting Glucose 101 H Calcium 10.1 D Total Bilirubin 0.3 AST 18 ALT 17 Alkaline Phosphatase 36 L Total Protein 7.1 Albumin 4.5 Triglycerides 119 Cholesterol 147 LDL Cholesterol, Calc 74 HDL Cholesterol 50 Assessment and Plan (1) Routine medical exam: Status: Acute Plan 63-year-old female with history of hypothyroidism, hyperlipidemia, PTSD, mood disorder, personality disorder, GERD, and CKD stage 4 admitted to Psychiatry from [facility] ED on 10/25 am with consult placed to hospitalist service for medical H&P. #Mood/personality disorder -plan per psychiatry #Postoperative hypothyroidism -continue levothyroxine #HLD -continue statin #GERD -continue ppi #CKD stage IV -renal function baseline ED chart reviewed from [facility]. Labs reassuring Thank you for allowing me to participate in this consult. Signing off at this time. Please do not hesitate to call for further questions or for any acute medical issues.
--- NOTE | 2023-10-26 16:44 | P.PNPSI_ITS ---
Subjective Subjective Date of Service: 10/26/23 Reason For Visit: DEPRESSION,UNSOECIFIED,POST TRAMATIC STRESS DISORD Subjective Notes: Conditional Voluntary Interim History: Pt continues to report hearing voices of alters. She denies SI/HI. She was moslty in bed later during the day. No behavioral concerns. Review of Systems Review of Systems Yes all other systems are reviewed and are negative Mental Status Exam Mental Status Exam Narrative: Appearance:wearing hospital gown, good hygiene in NAD behavior: cooperative Speech: clear, normal rate/rhythm/volume, spontaneous TP: linear TC: hearing alters and worried about triggers Mood: okay Affect: congruent SI: denies any plan or intent HI:passive towards mother VH/AH: pt reports hearing voices of alters but these do not seem to be related to psychotic disorder but hx of trauma Delusions: none Insight/judgment: poor x 2 Memory/cog: alert, oriented x 3. grossly intact to conversational testing Diagnostics Vital Signs (24Hr): Vital Signs - 24 hr 10/25/23 21:10 10/26/23 07:40 Temperature 97.3 F 97.2 F Pulse Rate 85 66 Respiratory Rate 18 16 Blood Pressure 121/74 114/72 Pulse Oximetry 100 99 Oxygen Delivery Method Room Air Room Air BMI result Body Mass Index 21.8 Labs 10/26/23 08:54 Labs: Laboratory Results - last 48 hr 10/26/23 08:54 Sodium 146 H Potassium 4.1 Chloride 108 Carbon Dioxide 30 H Anion Gap 12 BUN 20 H Creatinine 1.74 H Estim Creat Clear Calc 26.6 Estimated GFR 29 Fasting Glucose 101 H Calcium 10.1 D Total Bilirubin 0.3 AST 18 ALT 17 Alkaline Phosphatase 36 L Total Protein 7.1 Albumin 4.5 Triglycerides 119 Cholesterol 147 LDL Cholesterol, Calc 74 HDL Cholesterol 50 Medications Medications Current Medications Acetaminophen (Acetaminophen 325 Mg Tablet) 650 mg PO Q6H PRN PRN Reason: Headache/Pain Mild Scale (1-3) Al Hydroxide/Mg Hydroxide (Magnesium Hydrox/Alum Hydrox 30 Ml Oral.Susp) 30 ml PO Q6H PRN PRN Reason: Heartburn/Nausea Atorvastatin Calcium (Atorvastatin Calcium 20 Mg Tablet) 20 mg PO DAILY NAT Last Admin: 10/26/23 09:14 Dose: 20 mg Clonazepam (Clonazepam 0.5 Mg Tablet) 0.5 mg PO TID PRN PRN Reason: Anxiety Last Admin: 10/26/23 15:26 Dose: 0.5 mg Haloperidol (Haloperidol 1 Mg Tablet) 2 mg PO BEDTIME [facility] Last Admin: 10/25/23 22:56 Dose: 2 mg Hydroxyzine HCl (Hydroxyzine Hcl 50 Mg Tablet) 50 mg PO Q6H PRN PRN Reason: Anxiety Lamotrigine (Lamotrigine 25 Mg Tablet) 50 mg PO DAILY [facility] Last Admin: 10/26/23 09:14 Dose: 50 mg Lamotrigine (Lamotrigine 100 Mg Tablet) 200 mg PO BEDTIME [facility] Last Admin: 10/25/23 22:56 Dose: 200 mg Lamotrigine (Lamotrigine 25 Mg Tablet) 50 mg PO BEDTIME [facility] Last Admin: 10/25/23 22:56 Dose: 50 mg Levothyroxine Sodium (Levothyroxine Sodium 125 Mcg Tablet) 125 mcg PO DAILY@0600 [facility] Last Admin: 10/26/23 08:13 Dose: 125 mcg Magnesium Hydroxide (Milk Of Magnesia 30 Ml Oral.Susp) 30 ml PO DAILY PRN PRN Reason: Constipation Multivitamins/Vitamin C (Multivitamin Tablet) 1 tab PO DAILY [facility] Last Admin: 10/26/23 09:15 Dose: 1 tab Nicotine Polacrilex (Nicotine Polacrilex 2 Mg Gum) 2 mg BUCCAL Q2H PRN PRN Reason: Nicotine Cravings Omeprazole (Omeprazole 20 Mg Capsule.Dr) 20 mg PO DAILY@0630 [facility] Last Admin: 10/26/23 09:15 Dose: 20 mg Trazodone HCl (Trazodone Hcl 50 Mg Tablet) 50 mg PO BEDTIME MRX1 PRN PRN Reason: Insomnia Last Admin: 10/26/23 01:30 Dose: 50 mg Trihexyphenidyl HCl (Trihexyphenidyl Hcl 2 Mg Tablet) 2 mg PO DAILY [facility] Last Admin: 10/26/23 09:15 Dose: 2 mg Ziprasidone (Ziprasidone 20 Mg Capsule) 100 mg PO BID@0800,1700 [facility] Last Admin: 10/26/23 09:15 Dose: 100 mg Allergies Allergies Allergy/AdvReac Type Severity Reaction Status Date / Time Penicillins [PENICILLINS] Allergy Severe HIVES Verified 03/12/22 08:56 sulfamethoxazole Allergy Severe DIARRHEA Verified 03/12/22 08:56 [From BACTRIM] trimethoprim [From BACTRIM] Allergy Severe DIARRHEA Verified 03/12/22 08:56 aripiprazole [From ABILIFY] Allergy Intermediate ATAXIA Verified 03/12/22 08:56 aspirin [ASPIRIN] Allergy Intermediate STOMACH Verified 03/12/22 08:56 CRAMPS benztropine [From COGENTIN] Allergy Intermediate CONFUSION, Verified 03/12/22 08:56 memory loss bupropion [BUPROPION] Allergy Intermediate DIZZINESS Verified 03/12/22 08:56 erythromycin base Allergy Intermediate GI UPSET Verified 03/12/22 08:56 [ERYTHROMYCIN BASE] ibuprofen [From MOTRIN] Allergy Intermediate STOMACH Verified 03/12/22 08:56 CRAMPS olanzapine [From ZYPREXA] Allergy Intermediate TONGUE Verified 03/12/22 08:56 MOVEMENTS perphenazine [From TRILAFON] Allergy Intermediate ARM AND Verified 03/12/22 08:56 LEG MOVEMENTS, FALL risperidone [From RISPERDAL] Allergy Intermediate TONGUE Verified 03/12/22 08:56 MOVEMENT egg AdvReac Stomach Verified 09/29/23 18:15 Upset From INDERAL Allergy Intermediate WHEEZING Uncoded 03/12/22 08:56 Assessment & Plan Assessment & Plan (1) Personality disorder in adult: Status: Acute Code(s): F60.9 - Personality disorder, unspecified (2) Bipolar disorder: Status: Acute Code(s): F31.9 - Bipolar disorder, unspecified Plan 63-year-old female with history of hypothyroidism, hyperlipidemia, PTSD, mood disorder, personality disorder, GERD, and CKD stage 4 admitted to Psychiatry from [facility] ED on 11 am with consult placed to hospitalist service for medical H&P. #Mood/personality disorder -plan per psychiatry #Postoperative hypothyroidism -continue levothyroxine #HLD -continue statin #GERD -continue ppi #CKD stage IV -renal function baseline ED chart reviewed from [facility]. Labs reassuring Thank you for allowing me to participate in this consult. Signing off at this time. Please do not hesitate to call for further questions or for any acute medical issues. Reason for continued inpatient stay Substantial Risk for: inability to function Time Spent With Patient Time: Total time managing care of this patient today ____ minutes.
[2023-10-26 19:40] VITALS: BP 125/60; PULSE 66; TEMP 36.4; O2SAT 99
[2023-10-26] MEDS: HaloperidoL 1 MG TABLET 2 MG PO (21:49)
[2023-10-26] MEDS: lamoTRIgine 100 MG TABLET 200 MG PO (21:49)
[2023-10-27] MEDS: Levothyroxine Sodium 125 MCG TABLET PO (06:02)
[2023-10-27] MEDS: Omeprazole 20 MG CAPSULE.DR PO (06:35)
[2023-10-27 07:15] VITALS: BP 129/70; PULSE 67; RESP 18; TEMP 36.1; O2SAT 99
[2023-10-27] MEDS: Atorvastatin Calcium 20 MG TABLET PO (09:09)
[2023-10-27] MEDS: lamoTRIgine 25 MG TABLET 50 MG PO ×2 (09:09→21:31)
[2023-10-27] MEDS: Multivitamin TABLET 1 TAB PO (09:09)
[2023-10-27] MEDS: Trihexyphenidyl HCL 2 MG TABLET PO (09:09)
[2023-10-27] MEDS: Ziprasidone 20 MG CAPSULE 100 MG PO ×2 (09:17→21:29)
[2023-10-27] MEDS: clonazePAM 0.5 MG TABLET PO (09:26)
[2023-10-27] MEDS: clonazePAM 0.5 MG TABLET 0.25 MG PO (18:27)
[2023-10-27] MEDS: traZODone HCL 50 MG TABLET PO ×2 (20:04→21:30)
--- NOTE | 2023-10-27 21:14 | P.PNPSI_ITS ---
Subjective Subjective Date of Service: 10/27/23 Reason For Visit: DEPRESSION,UNSOECIFIED,POST TRAMATIC STRESS DISORD Interim History: pt focused on alters and what they are saying to her, educating MD on her coping skills for them. states she is anxious and her mood is worse than when she was admitted, but denies SI. she states, but i do get threats from my alters, which she elaborates at request: they want me to fall. she accuses them of wanting to take over, and remove her as the dominant personality. states medications have not been helping for her AH, notably haldol 2 mg at HS. reports having also tried zyprexa and seroquel unsuccessfully. agrees to trial of thorazine, to start at 10 mg QHS. per staff, dep 9, anx 7. +AH. mood labile. not attending groups. +meds and meals. +SIBI yesterday, asking for 1:1. was able to be redirected to remain safe by staying in the milieu. Mental Status Exam Mental Status Exam Narrative: Appearance:wearing hospital gown, good hygiene in NAD behavior: cooperative Speech: clear, normal rate/rhythm/volume, spontaneous TP: linear TC: hearing alters and worried about triggers Mood: anxious Affect: congruent SI: denies SI HI: none expressed VH/AH: pt reports hearing voices of alters but these do not seem to be related to psychotic disorder but hx of trauma Delusions: none Insight/judgment: poor x 2 Memory/cog: alert, oriented x 3. grossly intact to conversational testing Diagnostics Vital Signs (24Hr): Vital Signs - 24 hr 10/27/23 07:15 Temperature 97.0 F Pulse Rate 67 Respiratory Rate 18 Blood Pressure 129/70 Pulse Oximetry 99 Oxygen Delivery Method Room Air BMI result Body Mass Index 21.8 Labs 10/26/23 08:54 Labs: Laboratory Results - last 48 hr 10/26/23 08:54 Sodium 146 H Potassium 4.1 Chloride 108 Carbon Dioxide 30 H Anion Gap 12 BUN 20 H Creatinine 1.74 H Estim Creat Clear Calc 26.6 Estimated GFR 29 Fasting Glucose 101 H Calcium 10.1 D Total Bilirubin 0.3 AST 18 ALT 17 Alkaline Phosphatase 36 L Total Protein 7.1 Albumin 4.5 Triglycerides 119 Cholesterol 147 LDL Cholesterol, Calc 74 HDL Cholesterol 50 Medications Medications Current Medications Acetaminophen (Acetaminophen 325 Mg Tablet) 650 mg PO Q6H PRN PRN Reason: Headache/Pain Mild Scale (1-3) Al Hydroxide/Mg Hydroxide (Magnesium Hydrox/Alum Hydrox 30 Ml Oral.Susp) 30 ml PO Q6H PRN PRN Reason: Heartburn/Nausea Atorvastatin Calcium (Atorvastatin Calcium 20 Mg Tablet) 20 mg PO DAILY [facility] Last Admin: 10/27/23 09:09 Dose: 20 mg Chlorpromazine HCl (Chlorpromazine Hcl 10 Mg Tablet) 10 mg PO BEDTIME NAT Clonazepam (Clonazepam 0.5 Mg Tablet) 0.25 mg PO TID PRN PRN Reason: Anxiety Last Admin: 10/27/23 18:27 Dose: 0.25 mg Lamotrigine (Lamotrigine 25 Mg Tablet) 50 mg PO DAILY [facility] Last Admin: 10/27/23 09:09 Dose: 50 mg Lamotrigine (Lamotrigine 100 Mg Tablet) 200 mg PO BEDTIME [facility] Last Admin: 10/26/23 21:49 Dose: 200 mg Lamotrigine (Lamotrigine 25 Mg Tablet) 50 mg PO BEDTIME [facility] Last Admin: 10/26/23 21:48 Dose: 50 mg Levothyroxine Sodium (Levothyroxine Sodium 125 Mcg Tablet) 125 mcg PO DAILY@0600 [facility] Last Admin: 10/27/23 06:02 Dose: 125 mcg Magnesium Hydroxide (Milk Of Magnesia 30 Ml Oral.Susp) 30 ml PO DAILY PRN PRN Reason: Constipation Multivitamins/Vitamin C (Multivitamin Tablet) 1 tab PO DAILY [facility] Last Admin: 10/27/23 09:09 Dose: 1 tab Nicotine Polacrilex (Nicotine Polacrilex 2 Mg Gum) 2 mg BUCCAL Q2H PRN PRN Reason: Nicotine Cravings Omeprazole (Omeprazole 20 Mg Capsule.Dr) 20 mg PO DAILY@0630 [facility] Last Admin: 10/27/23 06:35 Dose: 20 mg Trazodone HCl (Trazodone Hcl 50 Mg Tablet) 50 mg PO BEDTIME MRX1 PRN PRN Reason: Insomnia Last Admin: 10/27/23 20:04 Dose: 50 mg Trihexyphenidyl HCl (Trihexyphenidyl Hcl 2 Mg Tablet) 2 mg PO DAILY [facility] Last Admin: 10/27/23 09:09 Dose: 2 mg Ziprasidone (Ziprasidone 20 Mg Capsule) 100 mg PO BID NAT Last Admin: 10/27/23 09:17 Dose: 100 mg Allergies Allergies Allergy/AdvReac Type Severity Reaction Status Date / Time Penicillins [PENICILLINS] Allergy Severe HIVES Verified 03/12/22 08:56 sulfamethoxazole Allergy Severe DIARRHEA Verified 03/12/22 08:56 [From BACTRIM] trimethoprim [From BACTRIM] Allergy Severe DIARRHEA Verified 03/12/22 08:56 aripiprazole [From ABILIFY] Allergy Intermediate ATAXIA Verified 03/12/22 08:56 aspirin [ASPIRIN] Allergy Intermediate STOMACH Verified 03/12/22 08:56 CRAMPS benztropine [From COGENTIN] Allergy Intermediate CONFUSION, Verified 03/12/22 08:56 memory loss bupropion [BUPROPION] Allergy Intermediate DIZZINESS Verified 03/12/22 08:56 erythromycin base Allergy Intermediate GI UPSET Verified 03/12/22 08:56 [ERYTHROMYCIN BASE] ibuprofen [From MOTRIN] Allergy Intermediate STOMACH Verified 03/12/22 08:56 CRAMPS olanzapine [From ZYPREXA] Allergy Intermediate TONGUE Verified 03/12/22 08:56 MOVEMENTS perphenazine [From TRILAFON] Allergy Intermediate ARM AND Verified 03/12/22 08:56 LEG MOVEMENTS, FALL risperidone [From RISPERDAL] Allergy Intermediate TONGUE Verified 03/12/22 08:56 MOVEMENT egg AdvReac Stomach Verified 09/29/23 18:15 Upset From INDERAL Allergy Intermediate WHEEZING Uncoded 03/12/22 08:56 Assessment & Plan Assessment & Plan (1) Personality disorder in adult: Status: Acute Code(s): F60.9 - Personality disorder, unspecified (2) Bipolar disorder: Status: Acute Code(s): F31.9 - Bipolar disorder, unspecified Plan Ms. Shaikh is a 63 year-old woman with hx of Bipolar Disorder, trauma, Personality Disorder who self presented to [facility] after completing respite. Pt known to [facility] through previous admission with similar presentation. Pt reports alters telling her to hurt herself. We discussed risks, benefits and alternative treatment options. continue current medications. 10/25: Admit to M3, CV, 15 minutes checks for safety. Continue current medications 10/26: continue current mgmt. 10/27: DC haldol 2 mg QHS, start thorazine 10 mg QHS for AH/sleep. pt reports failed trials of seroquel and zyprexa. Patient educated on: diagnosis, medication risk/benefits and therapeutic strategies Reason for continued inpatient stay Substantial Risk for: harm to self, inability to function and rapid decompensation Time Spent With Patient Time: Total time managing care of this patient today __35__ minutes.
[2023-10-27] MEDS: chlorproMAZINE HCl 10 MG TABLET PO (21:28)
[2023-10-27] MEDS: lamoTRIgine 100 MG TABLET 200 MG PO (21:31)
[2023-10-27 21:42] VITALS: BP 129/70; PULSE 67; RESP 16; TEMP 36.1; O2SAT 99
[2023-10-28 05:45] VITALS: BP 129/60; PULSE 62; TEMP 36.2; O2SAT 99
[2023-10-28 05:55] VITALS: BP 130/70; PULSE 67; O2SAT 97
[2023-10-28] MEDS: Levothyroxine Sodium 125 MCG TABLET PO (06:06)
--- NOTE | 2023-10-28 06:09 | PC.NURSE ---
on rising at 0600 reported stiif ankles, sore hips and feeling dizzy. ortho's checked. no changes. see VS flow sheet.
[2023-10-28 08:26] VITALS: BP 125/58; PULSE 73; RESP 16; TEMP 35.9; O2SAT 100
[2023-10-28] MEDS: Multivitamin TABLET 1 TAB PO (09:26)
[2023-10-28] MEDS: Trihexyphenidyl HCL 2 MG TABLET PO (09:26)
[2023-10-28] MEDS: Atorvastatin Calcium 20 MG TABLET PO (09:26)
[2023-10-28] MEDS: lamoTRIgine 25 MG TABLET 50 MG PO ×2 (09:26→21:33)
[2023-10-28] MEDS: Omeprazole 20 MG CAPSULE.DR PO (09:26)
[2023-10-28] MEDS: Ziprasidone 20 MG CAPSULE 100 MG PO ×2 (09:40→21:32)
--- NOTE | 2023-10-28 12:11 | P.PNPSI_ITS ---
Subjective Subjective Date of Service: 10/28/23 Reason For Visit: DEPRESSION,UNSOECIFIED,POST TRAMATIC STRESS DISORD Subjective Notes: Conditional Voluntary Interim History: Reviewed with . Patient presents calm, pleasant. Pt stated, I had a hard time with my alters this morning. I have ten of them. I'm scared about my alters coming out. Usually journaling helps with them a lot . Patient reports auditory hallucinations. denies SI/HI/VH. She reports sleeping well. Medication Compliance: Yes Side effects from medications: No Attending Groups: Yes Review of Systems Constitutional: Reports as per HPI Eyes: Reports as per HPI Reports as per HPI Cardiovascular: Reports as per HPI Respiratory: Reports as per HPI Gastrointestinal: Reports as per HPI Genitourinary: Reports as per HPI Musculoskeletal: Reports as per HPI Skin/Breast: Reports as per HPI Reports as per HPI Psychiatric: Reports as per HPI Endocrine: Reports as per HPI Hematologic/Lymphatic: Reports as per HPI Allergic/Immunologic: Reports as per HPI Mental Status Exam Mental Status Exam Narrative: Pt is alert and oriented; behavior is cooperative, friendly and calm; dressed in casual attire; mood is described as anxious ; eye contact appropriate; Speech is normal rate, volume and prosody and not pressured; thought process is organized and goal directed; Thought content is on tx;denies SI/HI. Reports auditory hallucinations. Diagnostics Vital Signs (24Hr): Vital Signs - 24 hr 10/27/23 21:42 10/28/23 05:45 10/28/23 05:55 Temperature 97.0 F 97.1 F Pulse Rate 67 62 67 Respiratory Rate 16 Blood Pressure 129/70 129/60 130/70 Pulse Oximetry 99 99 97 Oxygen Delivery Method Room Air Room Air Room Air 10/28/23 08:26 Temperature 96.6 F L Pulse Rate 73 Respiratory Rate 16 Blood Pressure 125/58 L Pulse Oximetry 100 Oxygen Delivery Method Room Air BMI result Body Mass Index 21.8 Labs 10/26/23 08:54 Medications Medications Current Medications Acetaminophen (Acetaminophen 325 Mg Tablet) 650 mg PO Q6H PRN PRN Reason: Headache/Pain Mild Scale (1-3) Al Hydroxide/Mg Hydroxide (Magnesium Hydrox/Alum Hydrox 30 Ml Oral.Susp) 30 ml PO Q6H PRN PRN Reason: Heartburn/Nausea Atorvastatin Calcium (Atorvastatin Calcium 20 Mg Tablet) 20 mg PO DAILY NAT Last Admin: 10/28/23 09:26 Dose: 20 mg Chlorpromazine HCl (Chlorpromazine Hcl 10 Mg Tablet) 10 mg PO BEDTIME [facility] Last Admin: 10/27/23 21:28 Dose: 10 mg Clonazepam (Clonazepam 0.5 Mg Tablet) 0.25 mg PO TID PRN PRN Reason: Anxiety Last Admin: 10/27/23 18:27 Dose: 0.25 mg Lamotrigine (Lamotrigine 25 Mg Tablet) 50 mg PO DAILY [facility] Last Admin: 10/28/23 09:26 Dose: 50 mg Lamotrigine (Lamotrigine 100 Mg Tablet) 200 mg PO BEDTIME [facility] Last Admin: 10/27/23 21:31 Dose: 200 mg Lamotrigine (Lamotrigine 25 Mg Tablet) 50 mg PO BEDTIME [facility] Last Admin: 10/27/23 21:31 Dose: 50 mg Levothyroxine Sodium (Levothyroxine Sodium 125 Mcg Tablet) 125 mcg PO DAILY@0600 [facility] Last Admin: 10/28/23 06:06 Dose: 125 mcg Magnesium Hydroxide (Milk Of Magnesia 30 Ml Oral.Susp) 30 ml PO DAILY PRN PRN Reason: Constipation Multivitamins/Vitamin C (Multivitamin Tablet) 1 tab PO DAILY [facility] Last Admin: 10/28/23 09:26 Dose: 1 tab Nicotine Polacrilex (Nicotine Polacrilex 2 Mg Gum) 2 mg BUCCAL Q2H PRN PRN Reason: Nicotine Cravings Omeprazole (Omeprazole 20 Mg Capsule.Dr) 20 mg PO DAILY@0630 [facility] Last Admin: 10/28/23 09:26 Dose: 20 mg Trazodone HCl (Trazodone Hcl 50 Mg Tablet) 50 mg PO BEDTIME MRX1 PRN PRN Reason: Insomnia Last Admin: 10/27/23 21:30 Dose: 50 mg Trihexyphenidyl HCl (Trihexyphenidyl Hcl 2 Mg Tablet) 2 mg PO DAILY [facility] Last Admin: 10/28/23 09:26 Dose: 2 mg Ziprasidone (Ziprasidone 20 Mg Capsule) 100 mg PO BID [facility] Last Admin: 10/28/23 09:40 Dose: 100 mg Allergies Allergies Allergy/AdvReac Type Severity Reaction Status Date / Time Penicillins [PENICILLINS] Allergy Severe HIVES Verified 03/12/22 08:56 sulfamethoxazole Allergy Severe DIARRHEA Verified 03/12/22 08:56 [From BACTRIM] trimethoprim [From BACTRIM] Allergy Severe DIARRHEA Verified 03/12/22 08:56 aripiprazole [From ABILIFY] Allergy Intermediate ATAXIA Verified 03/12/22 08:56 aspirin [ASPIRIN] Allergy Intermediate STOMACH Verified 03/12/22 08:56 CRAMPS benztropine [From COGENTIN] Allergy Intermediate CONFUSION, Verified 03/12/22 08:56 memory loss bupropion [BUPROPION] Allergy Intermediate DIZZINESS Verified 03/12/22 08:56 erythromycin base Allergy Intermediate GI UPSET Verified 03/12/22 08:56 [ERYTHROMYCIN BASE] ibuprofen [From MOTRIN] Allergy Intermediate STOMACH Verified 03/12/22 08:56 CRAMPS olanzapine [From ZYPREXA] Allergy Intermediate TONGUE Verified 03/12/22 08:56 MOVEMENTS perphenazine [From TRILAFON] Allergy Intermediate ARM AND Verified 03/12/22 08:56 LEG MOVEMENTS, FALL risperidone [From RISPERDAL] Allergy Intermediate TONGUE Verified 03/12/22 08:56 MOVEMENT egg AdvReac Stomach Verified 09/29/23 18:15 Upset From INDERAL Allergy Intermediate WHEEZING Uncoded 03/12/22 08:56 Assessment & Plan Assessment & Plan (1) Personality disorder in adult: Status: Acute Code(s): F60.9 - Personality disorder, unspecified (2) Bipolar disorder: Status: Acute Code(s): F31.9 - Bipolar disorder, unspecified Plan Ms. Shaikh is a 63 year-old woman with hx of Bipolar Disorder, trauma, Personality Disorder who self presented to [facility] after completing respite. Pt [place] [facility] [place] with similar presentation. Pt reports alters telling her to hurt herself. We discussed risks, benefits and alternative treatment options. continue current medications. 10/25: Admit to M3, CV, 15 minutes checks for safety. Continue current medications 10/26: continue current mgmt. 10/27: DC haldol 2 mg QHS, start thorazine 10 mg QHS for AH/sleep. pt reports failed trials of seroquel and zyprexa. 10/28: Patient presents calm, pleasant. Pt stated, I had a hard time with my alters this morning. I have ten of them. I'm scared about my alters coming out. Usually journaling helps with them a lot . Patient reports auditory hallucinations. denies SI/HI/VH. She reports sleeping well. Patient educated on: diagnosis, medication risk/benefits and therapeutic strategies Informed Consent: understands Reason for continued inpatient stay Substantial Risk for: med/psych decompensation Time Spent With Patient Time: Total time managing care of this patient today _30___ minutes.
[2023-10-28] MEDS: clonazePAM 0.5 MG TABLET 0.25 MG PO (14:48)
[2023-10-28 19:55] VITALS: BP 142/73; PULSE 72; TEMP 36.4; O2SAT 98
[2023-10-28] MEDS: lamoTRIgine 100 MG TABLET 200 MG PO (21:33)
[2023-10-28] MEDS: traZODone HCL 50 MG TABLET PO (21:33)
[2023-10-28] MEDS: chlorproMAZINE HCl 10 MG TABLET PO (21:33)
[2023-10-29] MEDS: Levothyroxine Sodium 125 MCG TABLET PO (06:26)
[2023-10-29] MEDS: Omeprazole 20 MG CAPSULE.DR PO (06:59)
[2023-10-29 07:10] VITALS: BP 120/77; PULSE 67; RESP 16; TEMP 36.3; O2SAT 96
[2023-10-29] MEDS: Ziprasidone 20 MG CAPSULE 100 MG PO ×2 (08:41→21:34)
[2023-10-29] MEDS: Multivitamin TABLET 1 TAB PO (08:44)
[2023-10-29] MEDS: Atorvastatin Calcium 20 MG TABLET PO (08:47)
[2023-10-29] MEDS: Trihexyphenidyl HCL 2 MG TABLET PO (08:48)
[2023-10-29] MEDS: lamoTRIgine 25 MG TABLET 50 MG PO ×2 (08:48→21:31)
--- NOTE | 2023-10-29 13:40 | HO.PSYCHPN ---
Subjective Subjective Date of Service: 10/29/23 Reason For Visit: DEPRESSION,UNSOECIFIED,POST TRAMATIC STRESS DISORD Interim History: calm, cooperative. stooped posture. reviews her journal entries with MD, asks questions about Tx of DID, expresses unrealistic expectations regarding effectiveness of medications. MD educates pt about medications. pt agrees to increase HS thorazine to 25 mg. discuss discharge date of friday, with which pt is in agreement, but apprehensive. per staff, reporting AH days. blunted. taking meds. Mental Status Exam Mental Status Exam Narrative: Appearance:wearing street clothes, good hygiene in NAD behavior: cooperative Speech: clear, normal rate/rhythm/volume, spontaneous TP: linear TC: hearing alters, worried about not being ready for discharge Mood: anxious Affect: congruent SI: denies SI HI: none expressed VH/AH: pt reports hearing voices of alters but these do not seem to be related to psychotic disorder but hx of trauma Delusions: none Insight/judgment: poor x 2 Memory/cog: alert, oriented x 3. grossly intact to conversational testing Diagnostics Vital Signs (24Hr): Vital Signs - 24 hr 10/28/23 19:55 10/29/23 07:10 Temperature 97.6 F 97.3 F Pulse Rate 72 67 Respiratory Rate 16 Blood Pressure 142/73 H 120/77 Pulse Oximetry 98 96 Oxygen Delivery Method Room Air Room Air BMI result Body Mass Index 21.8 Labs 10/26/23 08:54 Medications Medications Current Medications Acetaminophen (Acetaminophen 325 Mg Tablet) 650 mg PO Q6H PRN PRN Reason: Headache/Pain Mild Scale (1-3) Al Hydroxide/Mg Hydroxide (Magnesium Hydrox/Alum Hydrox 30 Ml Oral.Susp) 30 ml PO Q6H PRN PRN Reason: Heartburn/Nausea Atorvastatin Calcium (Atorvastatin Calcium 20 Mg Tablet) 20 mg PO DAILY [facility] Last Admin: 10/29/23 08:47 Dose: 20 mg Chlorpromazine HCl (Chlorpromazine Hcl 25 Mg Tablet) 25 mg PO BEDTIME [facility] Clonazepam (Clonazepam 0.5 Mg Tablet) 0.25 mg PO TID PRN PRN Reason: Anxiety Last Admin: 10/28/23 14:48 Dose: 0.25 mg Lamotrigine (Lamotrigine 25 Mg Tablet) 50 mg PO DAILY [facility] Last Admin: 10/29/23 08:48 Dose: 50 mg Lamotrigine (Lamotrigine 100 Mg Tablet) 200 mg PO BEDTIME [facility] Last Admin: 10/28/23 21:33 Dose: 200 mg Lamotrigine (Lamotrigine 25 Mg Tablet) 50 mg PO BEDTIME [facility] Last Admin: 10/28/23 21:33 Dose: 50 mg Levothyroxine Sodium (Levothyroxine Sodium 125 Mcg Tablet) 125 mcg PO DAILY@0600 [facility] Last Admin: 10/29/23 06:26 Dose: 125 mcg Magnesium Hydroxide (Milk Of Magnesia 30 Ml Oral.Susp) 30 ml PO DAILY PRN PRN Reason: Constipation Multivitamins/Vitamin C (Multivitamin Tablet) 1 tab PO DAILY [facility] Last Admin: 10/29/23 08:44 Dose: 1 tab Nicotine Polacrilex (Nicotine Polacrilex 2 Mg Gum) 2 mg BUCCAL Q2H PRN PRN Reason: Nicotine Cravings Omeprazole (Omeprazole 20 Mg Capsule.Dr) 20 mg PO DAILY@0630 [facility] Last Admin: 10/29/23 06:59 Dose: 20 mg Trazodone HCl (Trazodone Hcl 50 Mg Tablet) 50 mg PO BEDTIME MRX1 PRN PRN Reason: Insomnia Last Admin: 10/28/23 21:33 Dose: 50 mg Trihexyphenidyl HCl (Trihexyphenidyl Hcl 2 Mg Tablet) 2 mg PO DAILY [facility] Last Admin: 10/29/23 08:48 Dose: 2 mg Ziprasidone (Ziprasidone 20 Mg Capsule) 100 mg PO BID [facility] Last Admin: 10/29/23 08:41 Dose: 100 mg Allergies Allergies Allergy/AdvReac Type Severity Reaction Status Date / Time Penicillins [PENICILLINS] Allergy Severe HIVES Verified 03/12/22 08:56 sulfamethoxazole Allergy Severe DIARRHEA Verified 03/12/22 08:56 [From BACTRIM] trimethoprim [From BACTRIM] Allergy Severe DIARRHEA Verified 03/12/22 08:56 aripiprazole [From ABILIFY] Allergy Intermediate ATAXIA Verified 03/12/22 08:56 aspirin [ASPIRIN] Allergy Intermediate STOMACH Verified 03/12/22 08:56 CRAMPS benztropine [From COGENTIN] Allergy Intermediate CONFUSION, Verified 03/12/22 08:56 memory loss bupropion [BUPROPION] Allergy Intermediate DIZZINESS Verified 03/12/22 08:56 erythromycin base Allergy Intermediate GI UPSET Verified 03/12/22 08:56 [ERYTHROMYCIN BASE] ibuprofen [From MOTRIN] Allergy Intermediate STOMACH Verified 03/12/22 08:56 CRAMPS olanzapine [From ZYPREXA] Allergy Intermediate TONGUE Verified 03/12/22 08:56 MOVEMENTS perphenazine [From TRILAFON] Allergy Intermediate ARM AND Verified 03/12/22 08:56 LEG MOVEMENTS, FALL risperidone [From RISPERDAL] Allergy Intermediate TONGUE Verified 03/12/22 08:56 MOVEMENT egg AdvReac Stomach Verified 09/29/23 18:15 Upset From INDERAL Allergy Intermediate WHEEZING Uncoded 03/12/22 08:56 Assessment & Plan Assessment & Plan (1) Personality disorder in adult: Status: Acute Code(s): F60.9 - Personality disorder, unspecified (2) Bipolar disorder: Status: Acute Code(s): F31.9 - Bipolar disorder, unspecified Plan Ms. Shaikh is a 63 year-old woman with hx of Bipolar Disorder, trauma, Personality Disorder who self presented to [facility] after completing respite. Pt known to [facility] through previous admission with similar presentation. Pt reports alters telling her to hurt herself. We discussed risks, benefits and alternative treatment options. continue current medications. 10/25: Admit to M3, CV, 15 minutes checks for safety. Continue current medications 10/26: continue current mgmt. 10/27: DC haldol 2 mg QHS, start thorazine 10 mg QHS for AH/sleep. pt reports failed trials of seroquel and zyprexa. 10/28: Patient presents calm, pleasant. Pt stated, I had a hard time with my alters this morning. I have ten of them. I'm scared about my alters coming out. Usually journaling helps with them a lot . Patient reports auditory hallucinations. denies SI/HI/VH. She reports sleeping well. 10/29: stable, working on managing alters. in agreement with tentative discharge date of next friday. increase HS thorazine to 25 mg. Reason for continued inpatient stay Substantial Risk for: harm to self, inability to function and rapid decompensation Time Spent With Patient Time: Total time managing care of this patient today __35__ minutes.
[2023-10-29] MEDS: clonazePAM 0.5 MG TABLET 0.25 MG PO (15:37)
[2023-10-29 20:15] VITALS: BP 118/58; PULSE 80; RESP 20; TEMP 36.2; O2SAT 94
[2023-10-29] MEDS: traZODone HCL 50 MG TABLET PO (21:30)
[2023-10-29] MEDS: lamoTRIgine 100 MG TABLET 200 MG PO (21:33)
[2023-10-29] MEDS: chlorproMAZINE HCl 25 MG TABLET PO (21:34)
[2023-10-30 06:00] VITALS: RESP 18
[2023-10-30] MEDS: Levothyroxine Sodium 125 MCG TABLET PO (06:44)
[2023-10-30 07:00] VITALS: BMI 21.9
[2023-10-30] MEDS: Omeprazole 20 MG CAPSULE.DR PO (07:16)
[2023-10-30] MEDS: clonazePAM 0.5 MG TABLET 0.25 MG PO ×2 (08:51→18:07)
[2023-10-30] MEDS: Atorvastatin Calcium 20 MG TABLET PO (08:52)
[2023-10-30] MEDS: Trihexyphenidyl HCL 2 MG TABLET PO (08:53)
[2023-10-30] MEDS: lamoTRIgine 25 MG TABLET 50 MG PO ×2 (08:53→21:10)
[2023-10-30] MEDS: Ziprasidone 20 MG CAPSULE 100 MG PO ×2 (08:55→16:39)
[2023-10-30] MEDS: Multivitamin TABLET 1 TAB PO (08:58)
[2023-10-30] MEDS: chlorproMAZINE HCl 25 MG TABLET PO ×2 (12:05→21:10)
[2023-10-30] MEDS: Milk of Magnesia 30 ML ORAL.SUSP PO (12:11)
--- NOTE | 2023-10-30 14:44 | P.PNPSI_ITS ---
Subjective Subjective Date of Service: 10/30/23 Reason For Visit: DEPRESSION,UNSOECIFIED,POST TRAMATIC STRESS DISORD Interim History: calm, cooperative. reports she slept well last night but thorazine not helpful for voices. review that the etiology of her AH means they will not likely respond to medication as much as if from another etiology. understands thorazine is meant to relax her, asks to have it in the morning as well. also asks to start several vitamins and supplements she takes at home. per staff, dep 9, anx 7. attending groups, tending to ADLs. appeared to sleep 7 hours. Mental Status Exam Mental Status Exam Narrative: Appearance:wearing street clothes, good hygiene in NAD behavior: cooperative Speech: clear, normal rate/rhythm/volume, spontaneous TP: linear TC: hearing alters, worried about not being ready for discharge Mood: anxious Affect: congruent SI: denies SI HI: none expressed VH/AH: pt reports hearing voices of alters but these do not seem to be related to psychotic disorder but hx of trauma Delusions: none Insight/judgment: poor x 2 Memory/cog: alert, oriented x 3. grossly intact to conversational testing Diagnostics Vital Signs (24Hr): Vital Signs - 24 hr 10/29/23 20:15 10/30/23 06:00 Temperature 97.2 F Pulse Rate 80 Respiratory Rate 20 18 Blood Pressure 118/58 L Pulse Oximetry 94 Oxygen Delivery Method Room Air BMI result Body Mass Index 21.9 Labs 10/26/23 08:54 Medications Medications Current Medications Acetaminophen (Acetaminophen 325 Mg Tablet) 650 mg PO Q6H PRN PRN Reason: Headache/Pain Mild Scale (1-3) Al Hydroxide/Mg Hydroxide (Magnesium Hydrox/Alum Hydrox 30 Ml Oral.Susp) 30 ml PO Q6H PRN PRN Reason: Heartburn/Nausea Ascorbic Acid (Ascorbic Acid 500 Mg Tablet) 1,000 mg PO DAILY [facility] Atorvastatin Calcium (Atorvastatin Calcium 20 Mg Tablet) 20 mg PO DAILY [facility] Last Admin: 10/30/23 08:52 Dose: 20 mg Calcium Carbonate/Cholecalciferol (Calcium + Vitamin D 250 Mg Tablet) 500 mg PO DAILY [facility] Chlorpromazine HCl (Chlorpromazine Hcl 25 Mg Tablet) 25 mg PO BID [facility] Last Admin: 10/30/23 12:05 Dose: 25 mg Clonazepam (Clonazepam 0.5 Mg Tablet) 0.25 mg PO TID PRN PRN Reason: Anxiety Last Admin: 10/30/23 08:51 Dose: 0.25 mg Lamotrigine (Lamotrigine 25 Mg Tablet) 50 mg PO DAILY [facility] Last Admin: 10/30/23 08:53 Dose: 50 mg Lamotrigine (Lamotrigine 100 Mg Tablet) 200 mg PO BEDTIME [facility] Last Admin: 10/29/23 21:33 Dose: 200 mg Lamotrigine (Lamotrigine 25 Mg Tablet) 50 mg PO BEDTIME [facility] Last Admin: 10/29/23 21:31 Dose: 50 mg Levothyroxine Sodium (Levothyroxine Sodium 125 Mcg Tablet) 125 mcg PO DAILY@0600 [facility] Last Admin: 10/30/23 06:44 Dose: 125 mcg Magnesium Hydroxide (Milk Of Magnesia 30 Ml Oral.Susp) 30 ml PO DAILY PRN PRN Reason: Constipation Last Admin: 10/30/23 12:11 Dose: 30 ml Multivitamins/Vitamin C (Multivitamin Tablet) 1 tab PO DAILY [facility] Last Admin: 10/30/23 08:58 Dose: 1 tab Nicotine Polacrilex (Nicotine Polacrilex 2 Mg Gum) 2 mg BUCCAL Q2H PRN PRN Reason: Nicotine Cravings Omeprazole (Omeprazole 20 Mg Capsule.Dr) 20 mg PO DAILY@0630 [facility] Last Admin: 10/30/23 07:16 Dose: 20 mg Trazodone HCl (Trazodone Hcl 50 Mg Tablet) 50 mg PO BEDTIME MRX1 PRN PRN Reason: Insomnia Last Admin: 10/29/23 21:30 Dose: 50 mg Trihexyphenidyl HCl (Trihexyphenidyl Hcl 2 Mg Tablet) 2 mg PO DAILY [facility] Last Admin: 10/30/23 08:53 Dose: 2 mg Ziprasidone (Ziprasidone 20 Mg Capsule) 100 mg PO BIDWM [facility] Allergies Allergies Allergy/AdvReac Type Severity Reaction Status Date / Time Penicillins [PENICILLINS] Allergy Severe HIVES Verified 03/12/22 08:56 sulfamethoxazole Allergy Severe DIARRHEA Verified 03/12/22 08:56 [From BACTRIM] trimethoprim [From BACTRIM] Allergy Severe DIARRHEA Verified 03/12/22 08:56 aripiprazole [From ABILIFY] Allergy Intermediate ATAXIA Verified 03/12/22 08:56 aspirin [ASPIRIN] Allergy Intermediate STOMACH Verified 03/12/22 08:56 CRAMPS benztropine [From COGENTIN] Allergy Intermediate CONFUSION, Verified 03/12/22 08:56 memory loss bupropion [BUPROPION] Allergy Intermediate DIZZINESS Verified 03/12/22 08:56 erythromycin base Allergy Intermediate GI UPSET Verified 03/12/22 08:56 [ERYTHROMYCIN BASE] ibuprofen [From MOTRIN] Allergy Intermediate STOMACH Verified 03/12/22 08:56 CRAMPS olanzapine [From ZYPREXA] Allergy Intermediate TONGUE Verified 03/12/22 08:56 MOVEMENTS perphenazine [From TRILAFON] Allergy Intermediate ARM AND Verified 03/12/22 08:56 LEG MOVEMENTS, FALL risperidone [From RISPERDAL] Allergy Intermediate TONGUE Verified 03/12/22 08:56 MOVEMENT egg AdvReac Stomach Verified 09/29/23 18:15 Upset From INDERAL Allergy Intermediate WHEEZING Uncoded 03/12/22 08:56 Assessment & Plan Assessment & Plan (1) Personality disorder in adult: Status: Acute Code(s): F60.9 - Personality disorder, unspecified (2) Bipolar disorder: Status: Acute Code(s): F31.9 - Bipolar disorder, unspecified Plan Ms. Shaikh is a 63 year-old woman with hx of Bipolar Disorder, trauma, Personality Disorder who self presented to [facility] after completing respite. Pt known to [facility] through previous admission with similar presentation. Pt reports alters telling her to hurt herself. We discussed risks, benefits and alternative treatment options. continue current medications. 10/25: Admit to M3, CV, 15 minutes checks for safety. Continue current medications 10/26: continue current mgmt. 10/27: DC haldol 2 mg QHS, start thorazine 10 mg QHS for AH/sleep. pt reports failed trials of seroquel and zyprexa. 10/28: Patient presents calm, pleasant. Pt stated, I had a hard time with my alters this morning. I have ten of them. I'm scared about my alters coming out. Usually journaling helps with them a lot . Patient reports auditory hallucinations. denies SI/HI/VH. She reports sleeping well. 10/29: stable, working on managing alters. in agreement with tentative discharge date of next friday. increase HS thorazine to 25 mg. 10/30: added thorazine 25 daily per pt request, along with vitamins requested by pt. slept well. psychologically preparing for discharge friday. Reason for continued inpatient stay Substantial Risk for: inability to function and rapid decompensation Time Spent With Patient Time: Total time managing care of this patient today _35___ minutes.
[2023-10-30] MEDS: Ascorbic Acid 500 MG TABLET 1000 MG PO (16:32)
[2023-10-30] MEDS: Calcium + Vitamin D 250 MG TABLET 500 MG PO (16:33)
[2023-10-30 19:53] VITALS: BP 123/86; PULSE 84; TEMP 36.2
[2023-10-30] MEDS: traZODone HCL 50 MG TABLET PO (21:10)
[2023-10-30] MEDS: lamoTRIgine 100 MG TABLET 200 MG PO (21:10)
[2023-10-31 06:00] VITALS: BP 122/68; PULSE 64; RESP 18; TEMP 36.3; O2SAT 98
[2023-10-31] MEDS: Levothyroxine Sodium 125 MCG TABLET PO (06:59)
[2023-10-31] MEDS: Omeprazole 20 MG CAPSULE.DR PO (08:46)
[2023-10-31] MEDS: Ziprasidone 20 MG CAPSULE 100 MG PO ×2 (08:48→18:27)
[2023-10-31] MEDS: Calcium + Vitamin D 250 MG TABLET 500 MG PO (08:51)
[2023-10-31] MEDS: Atorvastatin Calcium 20 MG TABLET PO (08:52)
[2023-10-31] MEDS: Ascorbic Acid 500 MG TABLET 1000 MG PO (08:52)
[2023-10-31] MEDS: chlorproMAZINE HCl 25 MG TABLET PO (08:53)
[2023-10-31] MEDS: lamoTRIgine 25 MG TABLET 50 MG PO ×2 (08:53→21:14)
[2023-10-31] MEDS: Trihexyphenidyl HCL 2 MG TABLET PO (08:54)
[2023-10-31] MEDS: Multivitamin TABLET 1 TAB PO (08:54)
[2023-10-31] MEDS: clonazePAM 0.5 MG TABLET 0.25 MG PO ×2 (11:23→18:29)
[2023-10-31] MEDS: Acetaminophen 325 MG TABLET 650 MG PO ×2 (12:08→21:14)
--- NOTE | 2023-10-31 12:27 | PM.EVENT ---
Event Note Date of Service: 10/31/23 Event Note: 63-year-old female with history of hypothyroidism, hyperlipidemia, PTSD, mood disorder, personality disorder, GERD, and CKD stage 4 admitted to Psychiatry from [facility] on 10/25. Hospitalist consult for unwitnessed fall in room with head strike. Patient states she was in her room when she tripped over a chair, falling backwards into the chair and striking her head against the wall. Patient complains of 7/10 headache and some lightheadedness. Patient denies any dizziness or lightheadedness prior to fall. Physical examination relatively benign. No noticeable hematoma, ecchymosis, or bleeding. Neuro exam without focal deficits. Pt should receive acetaminophen and cold compress for pain. Will get CT of head and brain to r/o acute hemorrhage. Time Spent With Patient Time: Total time managing care of this patient today ____ minutes.
--- NOTE | 2023-10-31 14:53 | HO.PSYCHPN ---
Subjective Subjective Date of Service: 10/31/23 Reason For Visit: DEPRESSION,UNSOECIFIED,POST TRAMATIC STRESS DISORD Interim History: calm, cooperative. worried about getting sharps out of the way at home by friday. alters were cooperative yesterday for a time, which was delightful, but then they were oppositional and wanted to hurt her later in the day. says thorazine 25 mg doesn't affect her, requests increase to 50 mg each dose. per staff, planning to DC friday. mild dep/anx. c/o AH of alters. labile mood. visible, taking meals. up from 0330 this morning due to alters bothering her. Mental Status Exam Mental Status Exam Narrative: Appearance:wearing street clothes, good hygiene in NAD behavior: cooperative Speech: clear, normal rate/rhythm/volume, spontaneous TP: linear TC: hearing alters, worried about not being ready for discharge Mood: anxious Affect: congruent SI: denies SI HI: none expressed VH/AH: pt reports hearing voices of alters but these do not seem to be related to psychotic disorder but hx of trauma Delusions: none Insight/judgment: poor x 2 Memory/cog: alert, oriented x 3. grossly intact to conversational testing Diagnostics Vital Signs (24Hr): Vital Signs - 24 hr 10/30/23 19:53 10/31/23 06:00 Temperature 97.1 F 97.4 F Pulse Rate 84 64 Respiratory Rate 18 Blood Pressure 123/86 122/68 Pulse Oximetry 98 Oxygen Delivery Method Room Air BMI result Body Mass Index 21.9 Labs 10/26/23 08:54 Medications Medications Current Medications Acetaminophen (Acetaminophen 325 Mg Tablet) 650 mg PO Q6H PRN PRN Reason: Headache/Pain Mild Scale (1-3) Last Admin: 10/31/23 12:08 Dose: 650 mg Al Hydroxide/Mg Hydroxide (Magnesium Hydrox/Alum Hydrox 30 Ml Oral.Susp) 30 ml PO Q6H PRN PRN Reason: Heartburn/Nausea Ascorbic Acid (Ascorbic Acid 500 Mg Tablet) 1,000 mg PO DAILY [facility] Last Admin: 10/31/23 08:52 Dose: 1,000 mg Atorvastatin Calcium (Atorvastatin Calcium 20 Mg Tablet) 20 mg PO DAILY [facility] Last Admin: 10/31/23 08:52 Dose: 20 mg Calcium Carbonate/Cholecalciferol (Calcium + Vitamin D 250 Mg Tablet) 500 mg PO DAILY [facility] Last Admin: 10/31/23 08:51 Dose: 500 mg Chlorpromazine HCl (Chlorpromazine Hcl 25 Mg Tablet) 50 mg PO BID [facility] Clonazepam (Clonazepam 0.5 Mg Tablet) 0.25 mg PO TID PRN PRN Reason: Anxiety Last Admin: 10/31/23 11:23 Dose: 0.25 mg Lamotrigine (Lamotrigine 25 Mg Tablet) 50 mg PO DAILY [facility] Last Admin: 10/31/23 08:53 Dose: 50 mg Lamotrigine (Lamotrigine 100 Mg Tablet) 200 mg PO BEDTIME [facility] Last Admin: 10/30/23 21:10 Dose: 200 mg Lamotrigine (Lamotrigine 25 Mg Tablet) 50 mg PO BEDTIME [facility] Last Admin: 10/30/23 21:10 Dose: 50 mg Levothyroxine Sodium (Levothyroxine Sodium 125 Mcg Tablet) 125 mcg PO DAILY@0600 [facility] Last Admin: 10/31/23 06:59 Dose: 125 mcg Magnesium Hydroxide (Milk Of Magnesia 30 Ml Oral.Susp) 30 ml PO DAILY PRN PRN Reason: Constipation Last Admin: 10/30/23 12:11 Dose: 30 ml Multivitamins/Vitamin C (Multivitamin Tablet) 1 tab PO DAILY [facility] Last Admin: 10/31/23 08:54 Dose: 1 tab Nicotine Polacrilex (Nicotine Polacrilex 2 Mg Gum) 2 mg BUCCAL Q2H PRN PRN Reason: Nicotine Cravings Omeprazole (Omeprazole 20 Mg Capsule.Dr) 20 mg PO DAILY@0630 [facility] Last Admin: 10/31/23 08:46 Dose: 20 mg Trazodone HCl (Trazodone Hcl 50 Mg Tablet) 50 mg PO BEDTIME MRX1 PRN PRN Reason: Insomnia Last Admin: 10/30/23 21:10 Dose: 50 mg Trihexyphenidyl HCl (Trihexyphenidyl Hcl 2 Mg Tablet) 2 mg PO DAILY [facility] Last Admin: 10/31/23 08:54 Dose: 2 mg Ziprasidone (Ziprasidone 20 Mg Capsule) 100 mg PO BIDWM [facility] Last Admin: 10/31/23 08:48 Dose: 100 mg Allergies Allergies Allergy/AdvReac Type Severity Reaction Status Date / Time Penicillins [PENICILLINS] Allergy Severe HIVES Verified 03/12/22 08:56 sulfamethoxazole Allergy Severe DIARRHEA Verified 03/12/22 08:56 [From BACTRIM] trimethoprim [From BACTRIM] Allergy Severe DIARRHEA Verified 03/12/22 08:56 aripiprazole [From ABILIFY] Allergy Intermediate ATAXIA Verified 03/12/22 08:56 aspirin [ASPIRIN] Allergy Intermediate STOMACH Verified 03/12/22 08:56 CRAMPS benztropine [From COGENTIN] Allergy Intermediate CONFUSION, Verified 03/12/22 08:56 memory loss bupropion [BUPROPION] Allergy Intermediate DIZZINESS Verified 03/12/22 08:56 erythromycin base Allergy Intermediate GI UPSET Verified 03/12/22 08:56 [ERYTHROMYCIN BASE] ibuprofen [From MOTRIN] Allergy Intermediate STOMACH Verified 03/12/22 08:56 CRAMPS olanzapine [From ZYPREXA] Allergy Intermediate TONGUE Verified 03/12/22 08:56 MOVEMENTS perphenazine [From TRILAFON] Allergy Intermediate ARM AND Verified 03/12/22 08:56 LEG MOVEMENTS, FALL risperidone [From RISPERDAL] Allergy Intermediate TONGUE Verified 03/12/22 08:56 MOVEMENT egg AdvReac Stomach Verified 09/29/23 18:15 Upset From INDERAL Allergy Intermediate WHEEZING Uncoded 03/12/22 08:56 Assessment & Plan Assessment & Plan (1) Personality disorder in adult: Status: Acute Code(s): F60.9 - Personality disorder, unspecified (2) Bipolar disorder: Status: Acute Code(s): F31.9 - Bipolar disorder, unspecified Plan Ms. Shaikh is a 63 year-old woman with hx of Bipolar Disorder, trauma, Personality Disorder who self presented to [facility] after completing respite. Pt [place] [facility] [place] with similar presentation. Pt reports alters telling her to hurt herself. We discussed risks, benefits and alternative treatment options. continue current medications. 10/25: Admit to M3, CV, 15 minutes checks for safety. Continue current medications 10/26: continue current mgmt. 10/27: DC haldol 2 mg QHS, start thorazine 10 mg QHS for AH/sleep. pt reports failed trials of seroquel and zyprexa. 10/28: Patient presents calm, pleasant. Pt stated, I had a hard time with my alters this morning. I have ten of them. I'm scared about my alters coming out. Usually journaling helps with them a lot . Patient reports auditory hallucinations. denies SI/HI/VH. She reports sleeping well. 10/29: stable, working on managing alters. in agreement with tentative discharge date of next friday. increase HS thorazine to 25 mg. 10/30: added thorazine 25 daily per pt request, along with vitamins requested by pt. slept well. psychologically preparing for discharge friday. 10/31: fell in milieu for the first time this hospitalization, despite chronic gait instability. feels thorazine 25 does not affect her, increased thorazine from 25 BID to 50 BID as of tonight. etiology of fall unclear, but if it happens again of gait instability worsens would taper/DC thorazine due to anti-ACh and anti-histamine effects. DC friday. Reason for continued inpatient stay Substantial Risk for: inability to function and rapid decompensation Time Spent With Patient Time: Total time managing care of this patient today _25___ minutes.
[2023-10-31 19:45] VITALS: BP 104/79; PULSE 86; RESP 16; TEMP 36.6; O2SAT 97
[2023-10-31] MEDS: lamoTRIgine 100 MG TABLET 200 MG PO (21:13)
[2023-10-31] MEDS: chlorproMAZINE HCl 25 MG TABLET 50 MG PO (21:14)
[2023-11-01 06:00] VITALS: BP 136/68; PULSE 78; TEMP 36.2; O2SAT 98
[2023-11-01] MEDS: Levothyroxine Sodium 125 MCG TABLET PO (06:35)
[2023-11-01] MEDS: clonazePAM 0.5 MG TABLET 0.25 MG PO ×2 (06:54→13:41)
[2023-11-01] MEDS: Multivitamin TABLET 1 TAB PO (09:22)
[2023-11-01] MEDS: lamoTRIgine 25 MG TABLET 50 MG PO ×2 (09:22→21:39)
[2023-11-01] MEDS: Ascorbic Acid 500 MG TABLET 1000 MG PO (09:22)
[2023-11-01] MEDS: chlorproMAZINE HCl 25 MG TABLET 50 MG PO (09:22)
[2023-11-01] MEDS: Ziprasidone 20 MG CAPSULE 100 MG PO ×2 (09:23→19:27)
[2023-11-01] MEDS: Trihexyphenidyl HCL 2 MG TABLET PO (09:23)
[2023-11-01] MEDS: Calcium + Vitamin D 250 MG TABLET 500 MG PO (09:24)
[2023-11-01] MEDS: Omeprazole 20 MG CAPSULE.DR PO (09:24)
[2023-11-01] MEDS: Atorvastatin Calcium 20 MG TABLET PO (09:27)
--- NOTE | 2023-11-01 13:11 | P.PNPSI_ITS ---
Subjective Subjective Date of Service: 11/01/23 Reason For Visit: DEPRESSION,UNSOECIFIED,POST TRAMATIC STRESS DISORD Healthcare Proxy: No Guardianship: No Medical Problems Affecting Mental Status: No Interim History: met with patient. Discussed with Nursing. Has been cooperative no management issues and planned discharge Friday. Did have a mechanical fall and unremarkable head CT. He is quite anxious regarding medications and discharge planning. Reviewed medication she had with nursing and also database report writer. Also reviewed safety planning such as sharp items at home. We did discuss having a higher dose of Thorazine at nighttime for sleep ie increasing from 50 mg to 75 mg. No SI. Feels safe. Talks about her altars . Discussed parts of oneself versus discrete people/entities. Patient had contacted her pharmacy who we do not have 0.25 mg tablets of Klonopin in stock, but they can get them if the prescriptions are sent today and have them ready for pickup on Friday. In context of same, database report writer did send prescription to facilitate a smooth discharge on Friday. Medication Compliance: Yes Side effects from medications: No Attending Groups: Yes Review of Systems Acute medical concerns: No Review of Systems Review of Systems Yes all other systems are reviewed and are negative Mental Status Exam Mental Status Exam Narrative: Appearance:wearing street clothes, good hygiene in NAD behavior: cooperative Speech: clear, normal rate/rhythm/volume, spontaneous TP: linear TC: hearing alters, worried about not being ready for discharge Mood: anxious Affect: congruent SI: denies SI HI: none expressed VH/AH: pt reports hearing voices of alters but these do not seem to be related to psychotic disorder but hx of trauma Delusions: none Insight/judgment: poor x 2 Memory/cog: alert, oriented x 3. Diagnostics Vital Signs (24Hr): Vital Signs - 24 hr 10/31/23 19:45 11/01/23 06:00 Temperature 98 F 97.1 F Pulse Rate 86 78 Respiratory Rate 16 Blood Pressure 104/79 136/68 Pulse Oximetry 97 98 Oxygen Delivery Method Room Air Room Air BMI result Body Mass Index 21.9 Labs 10/26/23 08:54 Imaging Radiology Impressions: ITS Impressions Head CT 10/31/23 14:05 IMPRESSION: No acute intracranial abnormality including hemorrhage, mass effect, hydrocephalus, or acute territorial edematous infarction. Medications Medications Current Medications Acetaminophen (Acetaminophen 325 Mg Tablet) 650 mg PO Q6H PRN PRN Reason: Headache/Pain Mild Scale (1-3) Last Admin: 10/31/23 21:14 Dose: 650 mg Al Hydroxide/Mg Hydroxide (Magnesium Hydrox/Alum Hydrox 30 Ml Oral.Susp) 30 ml PO Q6H PRN PRN Reason: Heartburn/Nausea Ascorbic Acid (Ascorbic Acid 500 Mg Tablet) 1,000 mg PO DAILY [facility] Last Admin: 11/01/23 09:22 Dose: 1,000 mg Atorvastatin Calcium (Atorvastatin Calcium 20 Mg Tablet) 20 mg PO DAILY [facility] Last Admin: 11/01/23 09:27 Dose: 20 mg Calcium Carbonate/Cholecalciferol (Calcium + Vitamin D 250 Mg Tablet) 500 mg PO DAILY [facility] Last Admin: 11/01/23 09:24 Dose: 500 mg Chlorpromazine HCl (Chlorpromazine Hcl 25 Mg Tablet) 50 mg PO DAILY [facility] Chlorpromazine HCl (Chlorpromazine Hcl 25 Mg Tablet) 75 mg PO BEDTIME [facility] Clonazepam (Clonazepam 0.5 Mg Tablet) 0.25 mg PO TID PRN PRN Reason: Anxiety Last Admin: 11/01/23 06:54 Dose: 0.25 mg Lamotrigine (Lamotrigine 25 Mg Tablet) 50 mg PO DAILY [facility] Last Admin: 11/01/23 09:22 Dose: 50 mg Lamotrigine (Lamotrigine 100 Mg Tablet) 200 mg PO BEDTIME [facility] Last Admin: 10/31/23 21:13 Dose: 200 mg Lamotrigine (Lamotrigine 25 Mg Tablet) 50 mg PO BEDTIME [facility] Last Admin: 10/31/23 21:14 Dose: 50 mg Levothyroxine Sodium (Levothyroxine Sodium 125 Mcg Tablet) 125 mcg PO DAILY@0600 [facility] Last Admin: 11/01/23 06:35 Dose: 125 mcg Magnesium Hydroxide (Milk Of Magnesia 30 Ml Oral.Susp) 30 ml PO DAILY PRN PRN Reason: Constipation Last Admin: 10/30/23 12:11 Dose: 30 ml Multivitamins/Vitamin C (Multivitamin Tablet) 1 tab PO DAILY [facility] Last Admin: 11/01/23 09:22 Dose: 1 tab Nicotine Polacrilex (Nicotine Polacrilex 2 Mg Gum) 2 mg BUCCAL Q2H PRN PRN Reason: Nicotine Cravings Omeprazole (Omeprazole 20 Mg Capsule.Dr) 20 mg PO DAILY@0630 [facility] Last Admin: 11/01/23 09:24 Dose: 20 mg Trazodone HCl (Trazodone Hcl 50 Mg Tablet) 50 mg PO BEDTIME MRX1 PRN PRN Reason: Insomnia Last Admin: 10/30/23 21:10 Dose: 50 mg Trihexyphenidyl HCl (Trihexyphenidyl Hcl 2 Mg Tablet) 2 mg PO DAILY [facility] Last Admin: 11/01/23 09:23 Dose: 2 mg Ziprasidone (Ziprasidone 20 Mg Capsule) 100 mg PO BIDWM [facility] Last Admin: 11/01/23 09:23 Dose: 100 mg Allergies Allergies Allergy/AdvReac Type Severity Reaction Status Date / Time Penicillins [PENICILLINS] Allergy Severe HIVES Verified 03/12/22 08:56 sulfamethoxazole Allergy Severe DIARRHEA Verified 03/12/22 08:56 [From BACTRIM] trimethoprim [From BACTRIM] Allergy Severe DIARRHEA Verified 03/12/22 08:56 aripiprazole [From ABILIFY] Allergy Intermediate ATAXIA Verified 03/12/22 08:56 aspirin [ASPIRIN] Allergy Intermediate STOMACH Verified 03/12/22 08:56 CRAMPS benztropine [From COGENTIN] Allergy Intermediate CONFUSION, Verified 03/12/22 08:56 memory loss bupropion [BUPROPION] Allergy Intermediate DIZZINESS Verified 03/12/22 08:56 erythromycin base Allergy Intermediate GI UPSET Verified 03/12/22 08:56 [ERYTHROMYCIN BASE] ibuprofen [From MOTRIN] Allergy Intermediate STOMACH Verified 03/12/22 08:56 CRAMPS olanzapine [From ZYPREXA] Allergy Intermediate TONGUE Verified 03/12/22 08:56 MOVEMENTS perphenazine [From TRILAFON] Allergy Intermediate ARM AND Verified 03/12/22 08:56 LEG MOVEMENTS, FALL risperidone [From RISPERDAL] Allergy Intermediate TONGUE Verified 03/12/22 08:56 MOVEMENT egg AdvReac Stomach Verified 09/29/23 18:15 Upset From INDERAL Allergy Intermediate WHEEZING Uncoded 03/12/22 08:56 Assessment & Plan Assessment & Plan (1) Personality disorder in adult: Status: Acute Code(s): F60.9 - Personality disorder, unspecified (2) Bipolar disorder: Status: Acute Code(s): F31.9 - Bipolar disorder, unspecified Plan Ms. Shaikh is a 63 year-old woman with hx of Bipolar Disorder, trauma, Personality Disorder who self presented to [facility] after completing respite. Pt known to [facility] through previous admission with similar presentation. Pt reports alters telling her to hurt herself. We discussed risks, benefits and alternative treatment options. continue current medications. 10/25: Admit to M3, CV, 15 minutes checks for safety. Continue current medications 10/26: continue current mgmt. 10/27: DC haldol 2 mg QHS, start thorazine 10 mg QHS for AH/sleep. pt reports failed trials of seroquel and zyprexa. 10/28: Patient presents calm, pleasant. Pt stated, I had a hard time with my alters this morning. I have ten of them. I'm scared about my alters coming out. Usually journaling helps with them a lot . Patient reports auditory hallucinations. denies SI/HI/VH. She reports sleeping well. 10/29: stable, working on managing alters. in agreement with tentative discharge date of next friday. increase HS thorazine to 25 mg. 10/30: added thorazine 25 daily per pt request, along with vitamins requested by pt. slept well. psychologically preparing for discharge friday. 10/31: fell in milieu for the first time this hospitalization, despite chronic gait instability. feels thorazine 25 does not affect her, increased thorazine from 25 BID to 50 BID as of tonight. etiology of fall unclear, but if it happens again of gait instability worsens would taper/DC thorazine due to anti- ACh and anti-histamine effects. DC friday. 11/01/23: patient had contacted her pharmacy who we do not have 0.25 mg tablets of Klonopin in stock, but they can get them if the prescriptions are sent today and have them ready for pickup on Friday. In context of same, database report writer did send prescription to facilitate a smooth discharge on Friday. Mechanical fall yesterday- increased anxiety and some broken sleep, will trial thorazine increase to 75 hs Reason for continued inpatient stay Substantial Risk for: rapid decompensation Time Spent With Patient Time: Total time managing care of this patient today ____ minutes.
[2023-11-01 19:50] VITALS: BP 125/92; PULSE 85; RESP 16; TEMP 36.6; O2SAT 95
[2023-11-01] MEDS: lamoTRIgine 100 MG TABLET 200 MG PO (21:38)
[2023-11-01] MEDS: chlorproMAZINE HCl 25 MG TABLET 75 MG PO (21:39)
[2023-11-02] MEDS: Levothyroxine Sodium 125 MCG TABLET PO (06:33)
[2023-11-02] MEDS: Omeprazole 20 MG CAPSULE.DR PO (09:27)
[2023-11-02] MEDS: Ziprasidone 20 MG CAPSULE 100 MG PO ×2 (09:27→18:34)
[2023-11-02] MEDS: Atorvastatin Calcium 20 MG TABLET PO (09:28)
[2023-11-02] MEDS: lamoTRIgine 25 MG TABLET 50 MG PO ×2 (09:28→21:04)
[2023-11-02] MEDS: Ascorbic Acid 500 MG TABLET 1000 MG PO (09:28)
[2023-11-02] MEDS: Trihexyphenidyl HCL 2 MG TABLET PO (09:28)
[2023-11-02] MEDS: chlorproMAZINE HCl 25 MG TABLET 50 MG PO (09:28)
[2023-11-02] MEDS: Multivitamin TABLET 1 TAB PO (09:28)
[2023-11-02] MEDS: Calcium + Vitamin D 250 MG TABLET 500 MG PO (09:29)
[2023-11-02 10:12] VITALS: BP 123/58; PULSE 67; RESP 20; TEMP 36.2; O2SAT 100
--- NOTE | 2023-11-02 10:15 | HO.PSYCHPN ---
Subjective Subjective Date of Service: 11/02/23 Reason For Visit: DEPRESSION,UNSOECIFIED,POST TRAMATIC STRESS DISORD Interim History: Has been cooperative no management issues and planned discharge tomorrow. Remains anxious regarding medications and discharge planning. No SI. Feels safe. Talks about her altars .Would like to be discharged at 1230 tomorrow- friend can machine operator picker, helps with settling back home. Medication Compliance: Yes Side effects from medications: No Attending Groups: Yes Review of Systems Acute medical concerns: No Review of Systems Review of Systems nothing acute Mental Status Exam Mental Status Exam Narrative: Appearance:wearing street clothes, good hygiene in NAD behavior: cooperative Speech: clear, normal rate/rhythm/volume, spontaneous TP: linear TC: hearing alters, worried about not being ready for discharge Mood: anxious Affect: congruent SI: denies SI HI: none expressed VH/AH: pt reports hearing voices of alters but these do not seem to be related to psychotic disorder but hx of trauma Delusions: none Insight/judgment: improvoed Memory/cog: alert, oriented x 3. Diagnostics Vital Signs (24Hr): Vital Signs - 24 hr 11/01/23 19:50 11/02/23 10:12 Temperature 97.8 F 97.1 F Pulse Rate 85 67 Respiratory Rate 16 20 Blood Pressure 125/92 H 123/58 L Pulse Oximetry 95 100 Oxygen Delivery Method Room Air Room Air BMI result Body Mass Index 21.9 Labs 10/26/23 08:54 Imaging Radiology Impressions: ITS Impressions Head CT 10/31/23 14:05 IMPRESSION: No acute intracranial abnormality including hemorrhage, mass effect, hydrocephalus, or acute territorial edematous infarction. Medications Medications Current Medications Acetaminophen (Acetaminophen 325 Mg Tablet) 650 mg PO Q6H PRN PRN Reason: Headache/Pain Mild Scale (1-3) Last Admin: 10/31/23 21:14 Dose: 650 mg Al Hydroxide/Mg Hydroxide (Magnesium Hydrox/Alum Hydrox 30 Ml Oral.Susp) 30 ml PO Q6H PRN PRN Reason: Heartburn/Nausea Ascorbic Acid (Ascorbic Acid 500 Mg Tablet) 1,000 mg PO DAILY [facility] Last Admin: 11/02/23 09:28 Dose: 1,000 mg Atorvastatin Calcium (Atorvastatin Calcium 20 Mg Tablet) 20 mg PO DAILY [facility] Last Admin: 11/02/23 09:28 Dose: 20 mg Calcium Carbonate/Cholecalciferol (Calcium + Vitamin D 250 Mg Tablet) 500 mg PO DAILY [facility] Last Admin: 11/02/23 09:29 Dose: 500 mg Chlorpromazine HCl (Chlorpromazine Hcl 25 Mg Tablet) 50 mg PO DAILY [facility] Last Admin: 11/02/23 09:28 Dose: 50 mg Chlorpromazine HCl (Chlorpromazine Hcl 25 Mg Tablet) 75 mg PO BEDTIME [facility] Last Admin: 11/01/23 21:39 Dose: 75 mg Clonazepam (Clonazepam 0.5 Mg Tablet) 0.25 mg PO TID PRN PRN Reason: Anxiety Last Admin: 11/01/23 13:41 Dose: 0.25 mg Lamotrigine (Lamotrigine 25 Mg Tablet) 50 mg PO DAILY [facility] Last Admin: 11/02/23 09:28 Dose: 50 mg Lamotrigine (Lamotrigine 100 Mg Tablet) 200 mg PO BEDTIME [facility] Last Admin: 11/01/23 21:38 Dose: 200 mg Lamotrigine (Lamotrigine 25 Mg Tablet) 50 mg PO BEDTIME [facility] Last Admin: 11/01/23 21:39 Dose: 50 mg Levothyroxine Sodium (Levothyroxine Sodium 125 Mcg Tablet) 125 mcg PO DAILY@0600 [facility] Last Admin: 11/02/23 06:33 Dose: 125 mcg Magnesium Hydroxide (Milk Of Magnesia 30 Ml Oral.Susp) 30 ml PO DAILY PRN PRN Reason: Constipation Last Admin: 10/30/23 12:11 Dose: 30 ml Multivitamins/Vitamin C (Multivitamin Tablet) 1 tab PO DAILY [facility] Last Admin: 11/02/23 09:28 Dose: 1 tab Nicotine Polacrilex (Nicotine Polacrilex 2 Mg Gum) 2 mg BUCCAL Q2H PRN PRN Reason: Nicotine Cravings Omeprazole (Omeprazole 20 Mg Capsule.Dr) 20 mg PO DAILY@0630 [facility] Last Admin: 11/02/23 09:27 Dose: 20 mg Trazodone HCl (Trazodone Hcl 50 Mg Tablet) 50 mg PO BEDTIME MRX1 PRN PRN Reason: Insomnia Last Admin: 10/30/23 21:10 Dose: 50 mg Trihexyphenidyl HCl (Trihexyphenidyl Hcl 2 Mg Tablet) 2 mg PO DAILY [facility] Last Admin: 11/02/23 09:28 Dose: 2 mg Ziprasidone (Ziprasidone 20 Mg Capsule) 100 mg PO BIDWM [facility] Last Admin: 11/02/23 09:27 Dose: 100 mg Allergies Allergies Allergy/AdvReac Type Severity Reaction Status Date / Time Penicillins [PENICILLINS] Allergy Severe HIVES Verified 03/12/22 08:56 sulfamethoxazole Allergy Severe DIARRHEA Verified 03/12/22 08:56 [From BACTRIM] trimethoprim [From BACTRIM] Allergy Severe DIARRHEA Verified 03/12/22 08:56 aripiprazole [From ABILIFY] Allergy Intermediate ATAXIA Verified 03/12/22 08:56 aspirin [ASPIRIN] Allergy Intermediate STOMACH Verified 03/12/22 08:56 CRAMPS benztropine [From COGENTIN] Allergy Intermediate CONFUSION, Verified 03/12/22 08:56 memory loss bupropion [BUPROPION] Allergy Intermediate DIZZINESS Verified 03/12/22 08:56 erythromycin base Allergy Intermediate GI UPSET Verified 03/12/22 08:56 [ERYTHROMYCIN BASE] ibuprofen [From MOTRIN] Allergy Intermediate STOMACH Verified 03/12/22 08:56 CRAMPS olanzapine [From ZYPREXA] Allergy Intermediate TONGUE Verified 03/12/22 08:56 MOVEMENTS perphenazine [From TRILAFON] Allergy Intermediate ARM AND Verified 03/12/22 08:56 LEG MOVEMENTS, FALL risperidone [From RISPERDAL] Allergy Intermediate TONGUE Verified 03/12/22 08:56 MOVEMENT egg AdvReac Stomach Verified 09/29/23 18:15 Upset From INDERAL Allergy Intermediate WHEEZING Uncoded 03/12/22 08:56 Assessment & Plan Assessment & Plan (1) Personality disorder in adult: Status: Acute Code(s): F60.9 - Personality disorder, unspecified (2) Bipolar disorder: Status: Acute Code(s): F31.9 - Bipolar disorder, unspecified Plan Ms. Shaikh is a 63 year-old woman with hx of Bipolar Disorder, trauma, Personality Disorder who self presented to [facility] after completing respite. [place] [facility] [place] with similar presentation. Pt reports alters telling her to hurt herself. We discussed risks, benefits and alternative treatment options. continue current medications. 10/25: Admit to M3, CV, 15 minutes checks for safety. Continue current medications 10/26: continue current mgmt. 11/27: DC haldol 2 mg QHS, start thorazine 10 mg QHS for AH/sleep. pt reports failed trials of seroquel and zyprexa. 10/28: Patient presents calm, pleasant. Pt stated, I had a hard time with my alters this morning. I have ten of them. I'm scared about my alters coming out. Usually journaling helps with them a lot . Patient reports auditory hallucinations. denies SI/HI/VH. She reports sleeping well. 10/29: stable, working on managing alters. in agreement with tentative discharge date of next friday. increase HS thorazine to 25 mg. 10/30: added thorazine 25 daily per pt request, along with vitamins requested by pt. slept well. psychologically preparing for discharge friday. 10/31: fell in milieu for the first time this hospitalization, despite chronic gait instability. feels thorazine 25 does not affect her, increased thorazine from 25 BID to 50 BID as of tonight. etiology of fall unclear, but if it happens again of gait instability worsens would taper/DC thorazine due to anti-ACh and anti-histamine effects. DC friday. 11/01/23: patient had contacted her pharmacy who we do not have 0.25 mg tablets of Klonopin in stock, but they can get them if the prescriptions are sent today and have them ready for pickup on Friday. In context of same, writer technical publications did send prescription to facilitate a smooth discharge on Friday. Mechanical fall yesterday- increased anxiety and some broken sleep, will trial thorazine increase to 75 hs 11/02/23: Would like to be discharged at 1230 tomorrow- friend can machine operator picker, helps with settling back home Reason for continued inpatient stay Substantial Risk for: rapid decompensation Time Spent With Patient Time: Total time managing care of this patient today ____ minutes.
[2023-11-02] MEDS: clonazePAM 0.5 MG TABLET 0.25 MG PO ×2 (14:47→20:24)
[2023-11-02 20:20] VITALS: BP 148/68; PULSE 85; RESP 16; TEMP 36.4; O2SAT 97
[2023-11-02] MEDS: lamoTRIgine 100 MG TABLET 200 MG PO (21:03)
[2023-11-02] MEDS: chlorproMAZINE HCl 25 MG TABLET 75 MG PO (21:04)
[2023-11-02] MEDS: Acetaminophen 325 MG TABLET 650 MG PO (21:29)
[2023-11-02] MEDS: Milk of Magnesia 30 ML ORAL.SUSP PO (21:29)
[2023-11-03] MEDS: Levothyroxine Sodium 125 MCG TABLET PO (06:43)
[2023-11-03] MEDS: Omeprazole 20 MG CAPSULE.DR PO (07:30)
[2023-11-03 08:15] VITALS: BP 129/61; RESP 22; TEMP 36.2; O2SAT 99
[2023-11-03] MEDS: Ascorbic Acid 500 MG TABLET 1000 MG PO (10:34)
[2023-11-03] MEDS: lamoTRIgine 25 MG TABLET 50 MG PO (10:35)
[2023-11-03] MEDS: Multivitamin TABLET 1 TAB PO (10:35)
[2023-11-03] MEDS: chlorproMAZINE HCl 25 MG TABLET 50 MG PO (10:35)
[2023-11-03] MEDS: Trihexyphenidyl HCL 2 MG TABLET PO (10:35)
[2023-11-03] MEDS: Ziprasidone 20 MG CAPSULE 100 MG PO (10:36)
[2023-11-03] MEDS: Calcium + Vitamin D 250 MG TABLET 500 MG PO (10:36)
[2023-11-03] MEDS: Atorvastatin Calcium 20 MG TABLET PO (10:36)
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
== END 2023-11-03 12:10 | disposition home or self-care (01) | DRG 885 ==
PROVIDERS: Psychiatry & Neurology Psychiatry; Admitting Provider Psychiatry & Neurology Psychiatry; Visit Provider Psychiatry & Neurology Psychiatry
DX: F31.9 Bipolar disorder, unspecified (principal); N18.4 Chronic kidney disease, stage 4 (severe); F43.10 Post-traumatic stress disorder, unspecified; K21.9 Gastro-esophageal reflux disease without esophagitis; E89.0 Postprocedural hypothyroidism; E78.5 Hyperlipidemia, unspecified; F60.9 Personality disorder, unspecified; Z87.891 Personal history of nicotine dependence; Z79.890 Hormone replacement therapy; Z79.899 Other long term (current) drug therapy
CPT/HCPCS: 36415; 70450; 80053; 80061

== ENCOUNTER → 2023-10-25 01:15 | Outpatient (BNV) | payer MEDICARE, MEDICAID, SELFPAY | PROVIDERS: Admitting Provider Psychiatry & Neurology Psychiatry; Visit Provider Physician Assistant | DX: Z02.2 Encounter for examination for admission to residential institution (principal) | CPT/HCPCS: 99429; 99499 ==

== ENCOUNTER → 2023-10-25 01:15 | Outpatient (BNV) | payer MEDICARE, MEDICAID, SELFPAY | PROVIDERS: Admitting Provider Psychiatry & Neurology Psychiatry; Visit Provider Social Worker | DX: F60.9 Personality disorder, unspecified (principal); F31.5 Bipolar disorder, current episode depressed, severe, with psychotic features | CPT/HCPCS: 90792; 99231; 99232; 99239 ==

== ENCOUNTER 2023-11-03 19:42 | Emergency (ER) | payer MEDICARE, MEDICAID, SELFPAY ==
[2023-11-03 19:50] VITALS: BP 126/76; BP 139/65; PULSE 90; PULSE 92; RESP 18; TEMP 36.8; O2SAT 98; BMI 21.8
--- NOTE | 2023-11-03 20:24 | ED.PSYCH ---
HPI - Psych General Chief Complaint: Psychiatric Symptoms Stated Complaint: HEARING VOICES Time Seen by Provider: 11/03/23 19:48 Source: patient and EMS Mode of arrival: EMS Limitations: no limitations History of Present Illness HPI Narrative: Patient is a 63-year-old female who presents emergency department via EMS for evaluation of auditory hallucinations. She reports that she was discharged from inpatient psych here at this hospital today. She states that she did not feel as though she was ready to go home but ?thought I would give it a try?. She states that she did not make staff aware that she did not quite feel ready to return home. Once she was home she said she had a very difficult time organizing her new medications because of her auditory hallucinations. She states that they got so bad this evening that she was unable to eat dinner or carry out her self-care. She reports having ?two alters? one that is telling her to kill herself and one that is not and they're battling . She keeps repetitively saying all I can think of is ?HP, HP, Higher power from God . She expresses frustration regarding these voices. Denies plan to act on suicidal thoughts at this time. Denies any physical complaints. Related Data Home Medications Medication Instructions Recorded Confirmed ziprasidone HCl 80 mg capsule 80 mg PO BID 10/15/23 10/25/23 (Geodon) lamotrigine 100 mg tablet 2 tab PO BEDTIME 10/25/23 10/25/23 (Lamictal) Previous Rx's Medication Instructions Recorded Benjy-600 1 tab PO DAILY 30 days #30 tabs 10/13/23 cholecalciferol (vitamin D3) 25 25 mcg PO DAILY 30 days #30 caps 10/13/23 mcg (1,000 unit) capsule (Vitamin D3) coenzyme Q10 100 mg capsule 100 mg PO DAILY 30 days #30 caps 10/13/23 (CoQ-10) lamotrigine 25 mg tablet 2 tab PO QAM 30 days #60 tabs 10/13/23 levothyroxine 125 mcg tablet 125 mcg PO DAILY 30 days #30 tabs 10/13/23 multivitamin 1 tab PO DAILY 30 days #30 tabs 10/13/23 omeprazole 20 mg capsule,delayed 1 cap PO DAILY 30 days #30 caps 10/13/23 release simvastatin 40 mg tablet 1 tab PO DAILY 30 days #30 tabs 10/13/23 trazodone 50 mg tablet 50 mg PO BEDTIME MRX1 PRN Insomnia 10/13/23 30 days #60 tabs trihexyphenidyl 2 mg tablet 1 tab PO QAM 30 days #30 tabs 10/13/23 ziprasidone HCl 20 mg capsule 20 mg PO BID #60 caps 10/13/23 chlorpromazine 25 mg tablet 50 mg (2 x 25 mg) PO DAILY 30 days 11/03/23 #60 tabs chlorpromazine 25 mg tablet 75 mg (3 x 25 mg) PO BEDTIME 30 11/03/23 days #90 tabs clonazepam 0.25 mg disintegrating 0.25 mg PO TID PRN anxiety 30 days 11/03/23 tablet #90 tabs lamotrigine 25 mg tablet 50 mg (2 x 25 mg) PO BEDTIME 30 11/03/23 days #60 tabs Allergies Allergy/AdvReac Type Severity Reaction Status Date / Time Penicillins [PENICILLINS] Allergy Severe HIVES Verified 11/03/23 19:53 sulfamethoxazole Allergy Severe DIARRHEA Verified 11/03/23 19:53 [From BACTRIM] trimethoprim [From BACTRIM] Allergy Severe DIARRHEA Verified 11/03/23 19:53 aripiprazole [From ABILIFY] Allergy Intermediate ATAXIA Verified 11/03/23 19:53 aspirin [ASPIRIN] Allergy Intermediate STOMACH Verified 11/03/23 19:53 CRAMPS benztropine [From COGENTIN] Allergy Intermediate CONFUSION, Verified 11/03/23 19:53 memory loss bupropion [BUPROPION] Allergy Intermediate DIZZINESS Verified 11/03/23 19:53 erythromycin base Allergy Intermediate GI UPSET Verified 11/03/23 19:53 [ERYTHROMYCIN BASE] ibuprofen [From MOTRIN] Allergy Intermediate STOMACH Verified 11/03/23 19:53 CRAMPS olanzapine [From ZYPREXA] Allergy Intermediate TONGUE Verified 11/03/23 19:53 MOVEMENTS perphenazine [From TRILAFON] Allergy Intermediate ARM AND Verified 11/03/23 19:53 LEG MOVEMENTS, FALL risperidone [From RISPERDAL] Allergy Intermediate TONGUE Verified 11/03/23 19:53 MOVEMENT egg AdvReac Stomach Verified 11/03/23 19:53 Upset From INDERAL Allergy Intermediate WHEEZING Uncoded 03/12/22 08:56 Review of Systems Review of Systems: Yes all other systems are reviewed and are negative [facility] Past Medical History Attestation statement: The following information was validated with the patient. Source: old records reviewed Medical History CKD (chronic kidney disease), stage IV Bipolar disorder Neck pain Murmur GERD (gastroesophageal reflux disease) Hypothyroidism Irritable bowel syndrome (IBS) Hyperlipidemia Anxiety and depression Post traumatic stress disorder (PTSD) Dissociative identity disorder Surgical History Hx of colonoscopy History of total thyroidectomy Social History Social History Household Members: Other Household Members Other:: roommate Housing: Unknown / Unable to assess Are you a primary home care consultant to a significant other at home: No Do you presently have visiting nurse or other home services: Yes ([facility]) Comment: aware of trip hazard Patient Tobacco Use Status: Former Tobacco user Quit Date: 20 years ago Tobacco use type: Cigarette Cigarette Packs Per Day: 1 Cigarettes Per Day: 20.0 Years Smoked: 20 Smoked in Last 30 Days: No e-Cigarette/Vaping Use: Never Used Second Hand Smoke Exposure: No Use of substances other than those prescribed or required for medical reasons: No Advance Directives: No Advance Directives Information Provided: No service: No Sexual orientation: Straight/Heterosexual Physical Exam Vital Signs: Vital Signs: Last Vital Signs Temp 98.2 F 11/03/23 19:50 Pulse 90 11/03/23 19:50 Resp 18 11/03/23 19:50 BP 139/65 11/03/23 19:50 Pulse Ox 98 11/03/23 19:50 O2 Del Method Room Air 11/03/23 19:50 BMI result Body Mass Index 21.8 Appearance: Alert.?Oriented to person, place and time. No acute distress.?Normal affect. Eyes: Pupils equal, round and reactive to light.? ENT: Pharynx normal.?? Neck: Normal inspection.? Neck supple.?? CVS: Heart sounds normal. Normal heart rate and rhythm.? Pulses normal.?? Respiratory: No respiratory distress.? Lung sounds clear to auscultation bilaterally?? Abdomen: Soft and non-tender. Normoactive bowel sounds. Skin: Skin warm and dry.? Normal skin color.? Extremities: No lower extremity edema.? No calf ttp? Neuro: Moves all extremities spontaneously. Sensation intact bilaterally. CN II-XII intact. No focal neuro deficits. Ambulates with normal steady gait. Medical Decision Making Medical Decision Making [facility] Narrative: Patient is a 63-year-old female with past medical history of bipolar disorder presenting to emergency department for evaluation of auditory hallucinations, vague suicidal ideation without intent to act upon this as per HPI. At the time of my examination she is calm and cooperative, though does seem hyper focused on her auditory hallucinations. She denies any physical complaints. Her physical examination is benign. Upon review of her inpatient psychiatric admission she was discharged earlier today, the auditory hallucinations are thought to be secondary to her trauma history rather than a psychotic disorder, she was sent home with new prescription for lamotrigine, chlorpromazine, and clonazepam which she states she had a very difficult time organizing her medications at home today. It is unclear which medications she took this evening. Plan to obtain basic labs for medical clearance, and refer to care team for determination of further inpatient psychiatric admission. Differential Diagnosis Differential Diagnoses: The differential diagnosis associated with the presentation includes (Bipolar disorder, personality disorder, medication noncompliance in) Admission/Observation Consideration of admission/observation: Escalation of care including admission/observation considered (Physician observation to the care team evaluation can do) Consult Healthcare Provider Management of the patient was discussed with: Behavioral Health Provider (CARE team) Lab Data [facility] Lab Attestation statement: I reviewed the patient's lab results. CBC is without leukocytosis. CMP overall unremarkable, renal function at baseline. Urinalysis without evidence of infection. Toxicology negative. 11/03/23 20:48 11/03/23 20:48 Labs: Lab Results 11/03/23 11/03/23 Range/Units 20:48 22:06 WBC 8.4 (4.8-10.8) X10*3/uL RBC 3.91 L (4.20-5.50) X10*6/uL Hgb 12.1 (12.0-16.0) g/dl Hct 35.7 L (37.0-47.0) % MCV 91.3 (80.0-98.0) fL MCH 30.9 (27.0-33.0) pg MCHC 33.9 (31.0-35.0) g/dl RDW 12.5 (11.0-16.0) % Plt Count 204 (160-400) X10*3/uL MPV 8.9 L (9.4-12.3) fL Immature Gran % (Auto) 0.4 (0.0-0.4) % Neut % (Auto) 71.2 (45-73) % Lymph % (Auto) 19.8 L (20-40) % [place] % (Auto) 6.8 (2-11) % Eos % (Auto) 1.4 (0-4) % Baso % (Auto) 0.4 (0-2) % Lymph # (Auto) 1.7 (1.2-4.9) X10*3/uL [place] # (Auto) 0.6 (0.1-1.2) X10*3/uL Eos # (Auto) 0.1 (0.0-0.4) X10*3/uL Baso # (Auto) 0.0 (0.0-0.2) X10*3/uL Abs Immat Gran (auto) 0.03 (0.00-0.03) X10*3/uL Absolute Neuts (auto) 6.0 (2.0-8.3) x10*3/uL Absolute Nucleated RBC 0.000 (0.0-0.012) X10*3/uL Nucleated RBC % (auto) 0.0 (0.0-0.2) /100WBC Sodium 143 (135-145) mmol/L Potassium 3.8 (3.3-5.1) mmol/L Chloride 105 (96-108) mmol/L Carbon Dioxide 31 H (22-29) mmol/L Anion Gap 11 L (12-20) BUN 22 H (9-16) mg/dL Creatinine 1.74 H (0.5-1.4) mg/dL Estim Creat Clear Calc 26.6 Estimated GFR 29 Random Glucose 64 (60-115) mg/dL Calcium 9.6 (8.4-10.2) mg/dL Total Bilirubin 0.3 (0.0-1.0) mg/dL AST 22 (5-31) U/L ALT 17 (0-31) U/L Alkaline Phosphatase 40 (39-117) U/L Total Protein 6.8 (6.5-8.0) g/dL Albumin 4.4 (3.5-5.0) g/dL Urine Color Straw Urine Appearance Clear Urine pH 7.5 (5.0-9.0) Ur Specific [place] <= 1.005 (1.005-1.025) Urine Protein Negative (Neg-Trace) mg/dL Urine Glucose (UA) Negative (Negative) mg/dL Urine Ketones Negative (Negative) mg/dL Urine Blood Negative (Negative) Urine Nitrite Negative (Negative) Ur Leukocyte Esterase Negative (Negative) Urine Opiates Screen Not Detected (Not Detect) Urine Fentanyl Screen Not Detected (Not Detect) Ur Barbiturates Screen Not Detected (Not Detect) Ur Phencyclidine Scrn Not Detected (Not Detect) Ur Amphetamines Screen Not Detected (Not Detect) U Benzodiazepines Scrn Not Detected (Not Detect) Urine Cocaine Screen Not Detected (Not Detect) U Marijuana (THC) Screen Not Detected (Not Detect) Ethyl Alcohol < 10 mg/dL COVID-19 (DEDE) Negative (Negative) COVID-19 Clin Com See Note Independent Historian Clinical information obtained from an independent historian. History obtained from or confirmed by: EMS External Record Review External record reviewed: Inpatient record Discharge Plan Discharge Clinical Impression: Bipolar disorder, Suicidal ideation Patient Disposition: Still a Patient Prescriptions: No Action ziprasidone HCl 20 mg Capsule 20 mg PO BID Qty: 60 0RF trazodone 50 mg Tablet 50 mg PO BEDTIME MRX1 PRN (Reason: Insomnia) 30 Days Qty: 60 0RF multivitamin Tablet 1 tab PO DAILY 30 Days Qty: 30 0RF simvastatin 40 mg tablet 1 tab PO DAILY 30 Days Qty: 30 0RF lamotrigine 25 mg tablet 2 tab PO QAM 30 Days Qty: 60 0RF levothyroxine 125 mcg tablet 125 mcg PO DAILY 30 Days Qty: 30 0RF omeprazole 20 mg capsule,delayed release(DR/EC) 1 cap PO DAILY 30 Days Qty: 30 0RF trihexyphenidyl 2 mg tablet 1 tab PO QAM 30 Days Qty: 30 0RF cholecalciferol (vitamin D3) [Vitamin D3] 25 mcg (1,000 unit) Capsule 25 mcg PO DAILY 30 Days Qty: 30 0RF coenzyme Q10 [CoQ-10] 100 mg Capsule 100 mg PO DAILY 30 Days Qty: 30 0RF Benjy-600 1 tab PO DAILY 30 Days Qty: 30 0RF ziprasidone HCl [Geodon] 80 mg capsule 80 mg PO BID lamotrigine [Lamictal] 100 mg tablet 2 tab PO BEDTIME lamotrigine 25 mg Tablet 50 mg PO BEDTIME 30 Days Qty: 60 0RF chlorpromazine 25 mg Tablet 75 mg PO BEDTIME 30 Days Qty: 90 0RF chlorpromazine 25 mg Tablet 50 mg PO DAILY 30 Days Qty: 60 0RF clonazepam 0.25 mg tablet,disintegrating 0.25 mg PO TID PRN (Reason: anxiety) 30 Days Qty: 90 0RF Interventions: [place]-Suicide Risk Severity Scale Last Done: 11/03/23 22:15
--- NOTE | 2023-11-03 20:51 | PC.NURSE ---
Peter STONEMASON to bedside for primary eval. labs drawn. awaiting ua sample. awaiting care team consult.
[2023-11-03 20:52] LABS: MANUAL DIFF FLAG NO
[2023-11-03 20:57] LABS: Basophils Percent Auto 0.4 % (0-2); Eosinophils Absolute Auto 0.1 X10*3/uL (0.0-0.4); Eosinophils Percent Auto 1.4 % (0-4); Hematocrit 35.7 % (37.0-47.0); Hemoglobin 12.1 g/dl (12.0-16.0); Imm Gran Abs Auto 0.03 X10*3/uL (0.00-0.03); Imm Gran Pct Auto 0.4 % (0.0-0.4); Lymphocytes Absolute Auto 1.7 X10*3/uL (1.2-4.9); Lymphocytes Percent Auto 19.8 % (20-40); Mean Corpuscular HGB Conc 33.9 g/dl (31.0-35.0); Mean Corpuscular Hemoglobin 30.9 pg (27.0-33.0); Mean Corpuscular Volume 91.3 fL (80.0-98.0); Mean Platelet Volume 8.9 fL (9.4-12.3); Monocytes Absolute Auto 0.6 X10*3/uL (0.1-1.2); Monocytes Percent Auto 6.8 % (2-11); Neutrophils Percent Auto 71.2 % (45-73); Platelet Count 204 X10*3/uL (160-400); Red Blood Count 3.91 X10*6/uL (4.20-5.50); Red Cell Distribution Width 12.5 % (11.0-16.0); White Blood Count 8.4 X10*3/uL (4.8-10.8)
[2023-11-03 21:09] LABS: IDNOW Serial# 58CA691E
[2023-11-03 21:10] LABS: Alanine Aminotransferase 17 U/L (0-31); Albumin Level 4.4 g/dL (3.5-5.0); Alkaline Phosphatase 40 U/L (39-117); Anion Gap 11 (12-20); Aspartate Amino Transferase 22 U/L (5-31); Bilirubin Total 0.3 mg/dL (0.0-1.0); Blood Urea Nitrogen 22 mg/dL (9-16); COVID-19 Test Negative (Negative); Calcium 9.6 mg/dL (8.4-10.2); Carbon Dioxide 31 mmol/L (22-29); Chloride 105 mmol/L (96-108); Creatinine Clr Calc Pharmacy 26.6; Estimated Glomerular Filt Rate 29; Ethanol < 10 mg/dL; Glucose Random 64 mg/dL (60-115); Potassium 3.8 mmol/L (3.3-5.1); Sodium 143 mmol/L (135-145); Total Protein 6.8 g/dL (6.5-8.0)
--- NOTE | 2023-11-03 22:03 | PC.NURSE ---
pt denies thoughts to act on Si thoughts. pt reports thoughts to harm self d/t auditory hallucinations. pt changed into hospital clothing. rn discharge iván aware of need for sitter. pt calm/ccoperative ambulatory with steady gait to bathroom with kiko oscar.
[2023-11-03 22:12] LABS: Appearance Urine Clear; Color Urine Straw; Glucose Urine UA Negative (Negative); Leukocyte Esterase Urine Negative (Negative); Nitrite Urine Negative (Negative); PH 7.5 (5.0-9.0); Specific Gravity - Urine <= 1.005 (1.005-1.025); Urine Blood Negative (Negative); Urine Ketones Negative (Negative); Urine Protein Negative (Neg-Trace)
[2023-11-03 22:20] LABS: Amphetamine Screen Urine Not Detected (Not Detect); Barbiturates, Urine Not Detected (Not Detect); Benzodiazepines Screen Urine Not Detected (Not Detect); Cannabinoid Screen Urine Not Detected (Not Detect); Cocaine Screen Urine Not Detected (Not Detect); Fentanyl, urine Not Detected (Not Detect); Opiate Screen Urine Not Detected (Not Detect); Phencyclidine Screen Urine Not Detected (Not Detect)
--- NOTE | 2023-11-04 00:18 | PC.NURSE ---
sitter at bedside
--- NOTE | 2023-11-04 00:26 | MHC.EDTECH ---
PT belongings locked in Laundry closet in POD
--- NOTE | 2023-11-04 00:37 | PC.NURSE ---
med rec complete.
[2023-11-04 00:42] VITALS: BP 141/70; PULSE 74; RESP 15; TEMP 36.6; O2SAT 98
[2023-11-04] MEDS: lamoTRIgine 25 MG TABLET 50 MG PO ×2 (01:59→20:36)
[2023-11-04] MEDS: chlorproMAZINE HCl 25 MG TABLET 75 MG PO ×2 (01:59→20:35)
--- NOTE | 2023-11-04 02:14 | PC.NURSE ---
medication delay d/t med verification delay by pharmacy. pt medicated per jan. supervisor data processing notified of unavailable meds in pyxis; to be obtained by sup from diff floor.
[2023-11-04] MEDS: Ziprasidone 80 MG CAPSULE PO ×3 (02:24→20:49)
[2023-11-04] MEDS: Ziprasidone 20 MG CAPSULE PO ×3 (02:24→20:35)
[2023-11-04 06:28] VITALS: BP 113/59; PULSE 79; RESP 15; O2SAT 96
[2023-11-04] MEDS: Omeprazole 20 MG CAPSULE.DR PO (07:54)
[2023-11-04] MEDS: Levothyroxine Sodium 125 MCG TABLET PO (07:54)
[2023-11-04] MEDS: Milk of Magnesia 30 ML ORAL.SUSP 15 ML PO (09:56)
[2023-11-04] MEDS: Multivitamin TABLET 1 TAB PO (10:25)
[2023-11-04] MEDS: chlorproMAZINE HCl 25 MG TABLET 50 MG PO (10:25)
[2023-11-04] MEDS: Atorvastatin Calcium 20 MG TABLET PO (10:25)
[2023-11-04] MEDS: Cholecalciferol (Vitamin D3) 25 MCG TABLET PO (10:25)
[2023-11-04] MEDS: Trihexyphenidyl HCL 2 MG TABLET PO (10:30)
--- NOTE | 2023-11-04 14:08 | PHA.MEDREC ---
Pharmacy Consult ? Medication Reconciliation Pharmacy has completed the medication reconciliation.med rec complete using list provided by patient caregiver
[2023-11-04 14:56] VITALS: BP 129/61; PULSE 81; RESP 16; O2SAT 97
--- NOTE | 2023-11-04 19:20 | MHC.CARE ---
Care team spoke to good friend Damian and sister of pt. They report ongoing concerns that pt gets triggered in the mornings, she becomes overwhelmed. Damian has agreed that pt can return to her house however suggests she get into a day program because her and her work and pt does not do well in the morning. Pt's sister states that pt has a long hx of mental health and appears to be spiraling at this time. They both request an update tomorrow when an MSU is completed so they can assist with discharge planning. Damian [phone]
--- NOTE | 2023-11-04 19:43 | MHC.CARE ---
Patient evaluated by the CARE Team, inpatient psychiatric treatment is not recommended at this time. She was referred to [facility] and will stay the night in the ED for followup tomorrow. Patient is not on a Section 12A and can discharge if she requests.
[2023-11-04 20:56] VITALS: RESP 20
--- NOTE | 2023-11-05 03:00 | PC.NURSE ---
pt sleeping at this time, pt is calm and cooperative, no sign of distress.
[2023-11-05 05:34] VITALS: BP 112/64; PULSE 78; RESP 16; TEMP 36.7; O2SAT 98
--- NOTE | 2023-11-05 05:35 | PC.NURSE ---
pt reports she is hearing voices to harm herself, she has no plan and she doesn't want to harm herself.
[2023-11-05] MEDS: Levothyroxine Sodium 125 MCG TABLET PO (06:28)
[2023-11-05] MEDS: Omeprazole 20 MG CAPSULE.DR PO (06:28)
--- NOTE | 2023-11-05 06:32 | PC.NURSE ---
medicated per mar.
[2023-11-05] MEDS: Cholecalciferol (Vitamin D3) 25 MCG TABLET PO (08:45)
[2023-11-05] MEDS: Trihexyphenidyl HCL 2 MG TABLET PO (08:45)
[2023-11-05] MEDS: chlorproMAZINE HCl 25 MG TABLET 50 MG PO (08:45)
[2023-11-05] MEDS: Ziprasidone 20 MG CAPSULE PO (08:46)
[2023-11-05] MEDS: Atorvastatin Calcium 20 MG TABLET PO (08:46)
[2023-11-05] MEDS: Ziprasidone 80 MG CAPSULE PO (08:46)
[2023-11-05] MEDS: Multivitamin TABLET 1 TAB PO (08:46)
[2023-11-05 11:10] VITALS: BP 116/59; PULSE 74; RESP 18; O2SAT 95
--- NOTE | 2023-11-05 12:52 | PC.NURSE ---
pt resting comfortably on stretcher at this time, respirations even and unlabored, skin pwd, alert and oriented x4.Endorsing AH, denies SI/HI at this time. Pt ambulated with 1:1 to the bathroom without issue
--- NOTE | 2023-11-05 13:33 | MHC.CARE ---
Patient has been in review with [facility] for [facility]S, Sadia with [facility] confirmed pt remains in review at 1240p
--- NOTE | 2023-11-05 14:25 | PC.NURSE ---
ambulated with steady gait from main ER into bed bh5. respirations even and unlabored, offering no complaints at this time. no si/hi.
--- NOTE | 2023-11-05 15:47 | MHC.CARE ---
Addendum entered by Alix Arzate, [facility] 11/05/23 15:48: Work cell phone number, not for Pt Original Note: CARE Team received a call from Pts therapist?Raysa Wright ([phone] personal number)? requesting to be updated with Pts placement once confirmed. She stated that she thinks Pt would benefit from a access navigator thorough [facility] [place].
== END 2023-11-05 17:43 | disposition home or self-care (01) ==
PROVIDERS: Nurse Practitioner Family; Emergency Provider Student in an Organized Health Care Education/Training Program
DX: F32.9 Major depressive disorder, single episode, unspecified (principal); R45.851 Suicidal ideations; Z79.899 Other long term (current) drug therapy; Z87.891 Personal history of nicotine dependence; Z11.52 Encounter for screening for COVID-19; Z20.822 Contact with and (suspected) exposure to COVID-19
CPT/HCPCS: 80053; 80307; 81003; 85025; 87635; 99285; S9485

== ENCOUNTER 2023-11-14 13:31 | Inpatient (IN) | payer MEDICARE, MEDICAID, SELFPAY ==
[2023-11-14 13:45] VITALS: BP 130/90; PULSE 92; O2SAT 94
[2023-11-14 14:02] VITALS: BP 138/75; PULSE 84; RESP 17; TEMP 36.9; O2SAT 96; BMI 21.8
--- NOTE | 2023-11-14 14:19 | ED.PSYCH ---
HPI - Psych General Chief Complaint: Psychiatric Symptoms Stated Complaint: CRISIS Time Seen by Provider: 11/14/23 13:39 History of Present Illness HPI Narrative: 63 yo female with PMH of bipolar disorder, personality disorder, GERD, HLD, hypothyroidism here with c/o SI doing to one of her alter personalities telling her to kill herself. She states she is dissociating. She was just inpatient per her reports, she is compliant with medications. She does note that she has pain in R knee from something hitting it but able to walk and no swelling. MD complaint: suicidal ideation and feels depressed Onset (ago): week(s) Duration: intermittent History of same: Yes Relieving factors: none Exacerbating factors: other Associated psychiatric symptoms: depression and suicidal ideation Associated symptoms: denies other symptoms Treatments prior to arrival: none If self harm: admits thoughts of self harm Related Data Home Medications Medication Instructions Recorded Confirmed lamotrigine 100 mg tablet 250 mg PO BEDTIME 10/25/23 11/04/23 (Lamictal) ascorbic acid (vitamin C) 500 mg 1,000 mg PO DAILY@1200 11/04/23 11/04/23 tablet calcium carbonate 600 mg-vitamin 1 tab PO DAILY@1200 11/04/23 11/04/23 D3 5 mcg (200 unit) tablet cholecalciferol (vitamin D3) 25 25 mcg PO DAILY@1200 11/04/23 11/04/23 mcg (1,000 unit) tablet clonazepam 0.5 mg tablet 0.25 mg PO TID PRN Anxiety 11/04/23 11/04/23 levothyroxine 125 mcg tablet 125 mcg PO DAILY@0600 11/04/23 11/04/23 multivitamin-ferrous 1 tab PO DAILY@1200 11/04/23 11/04/23 fumarate-folic acid 18 mg-400 mcg tablet simvastatin 40 mg tablet 40 mg PO BEDTIME 11/04/23 11/04/23 ziprasidone HCl 20 mg capsule 100 mg PO BIDWM 11/04/23 11/04/23 Previous Rx's Medication Instructions Recorded omeprazole 20 mg capsule,delayed 1 cap PO DAILY 30 days #30 caps 10/13/23 release trihexyphenidyl 2 mg tablet 1 tab PO QAM 30 days #30 tabs 10/13/23 chlorpromazine 25 mg tablet 50 mg (2 x 25 mg) PO DAILY 30 days 11/03/23 #60 tabs chlorpromazine 25 mg tablet 75 mg (3 x 25 mg) PO BEDTIME 30 11/03/23 days #90 tabs lamotrigine 25 mg tablet 50 mg (2 x 25 mg) PO BEDTIME 30 11/03/23 days #60 tabs Allergies Allergy/AdvReac Type Severity Reaction Status Date / Time Penicillins [PENICILLINS] Allergy Severe HIVES Verified 11/03/23 19:53 sulfamethoxazole Allergy Severe DIARRHEA Verified 11/03/23 19:53 [From BACTRIM] trimethoprim [From BACTRIM] Allergy Severe DIARRHEA Verified 11/03/23 19:53 aripiprazole [From ABILIFY] Allergy Intermediate ATAXIA Verified 11/03/23 19:53 aspirin [ASPIRIN] Allergy Intermediate STOMACH Verified 11/03/23 19:53 CRAMPS benztropine [From COGENTIN] Allergy Intermediate CONFUSION, Verified 11/03/23 19:53 memory loss bupropion [BUPROPION] Allergy Intermediate DIZZINESS Verified 11/03/23 19:53 erythromycin base Allergy Intermediate GI UPSET Verified 11/03/23 19:53 [ERYTHROMYCIN BASE] ibuprofen [From MOTRIN] Allergy Intermediate STOMACH Verified 11/03/23 19:53 CRAMPS olanzapine [From ZYPREXA] Allergy Intermediate TONGUE Verified 11/03/23 19:53 MOVEMENTS perphenazine [From TRILAFON] Allergy Intermediate ARM AND Verified 11/03/23 19:53 LEG MOVEMENTS, FALL risperidone [From RISPERDAL] Allergy Intermediate TONGUE Verified 11/03/23 19:53 MOVEMENT egg AdvReac Stomach Verified 11/03/23 19:53 Upset From INDERAL Allergy Intermediate WHEEZING Uncoded 03/12/22 08:56 Review of Systems Review of Systems: Constitutional : No Fever, No Chills ENT/Mouth : No Ear Pain, No Nasal Congestion, No sore throat Eyes: No Eye Pain, No Swelling, No Redness Cardiovascular : No Chest Pain, No SOB Respiratory : No Cough, No Sputum, No Dyspnea Gastrointestinal : No Nausea, No Vomiting, No Diarrhea, No Hematochezia, No Melena Genitourinary : No Dysuria, No Urinary Frequency, No Hematuria Musculoskeletal : No Myalgias, po joint pain Skin : No Skin Lesions, No rash Neuro : No Weakness, No Numbness, No Paresthesias, No Dizziness, No Headache Psych : positive Anxiety, positive Depression, positive SI no HI Heme/Lymph: No Lymphadenopathy Endocrine : No Polyuria, No Polydipsia All other systems reviewed and are negative [facility] Past Medical History Attestation statement: The following information was validated with the patient. Source: old records reviewed Medical History Routine medical exam CKD (chronic kidney disease), stage IV Bipolar disorder Neck pain Murmur GERD (gastroesophageal reflux disease) Hypothyroidism Irritable bowel syndrome (IBS) Hyperlipidemia Anxiety and depression Post traumatic stress disorder (PTSD) Dissociative identity disorder Surgical History Hx of colonoscopy History of total thyroidectomy Social History Social History Household Members: Other Household Members Other:: roommate Housing: Unknown / Unable to assess Are you a primary career development engineer to a significant other at home: No Do you presently have visiting nurse or other home services: Yes ([facility]) Comment: aware of trip hazard Patient Tobacco Use Status: Former Tobacco user Quit Date: 20 years ago Tobacco use type: Cigarette Cigarette Packs Per Day: 1 Cigarettes Per Day: 20.0 Years Smoked: 20 Smoked in Last 30 Days: No e-Cigarette/Vaping Use: Never Used Second Hand Smoke Exposure: No Use of substances other than those prescribed or required for medical reasons: No Advance Directives: No Advance Directives Information Provided: No service: No Sexual orientation: Straight/Heterosexual Physical Exam Vital Signs: Vital Signs: Last Vital Signs Temp 98.5 F 11/14/23 14:02 Pulse 84 11/14/23 14:02 Resp 17 11/14/23 14:02 BP 138/75 11/14/23 14:02 Pulse Ox 96 11/14/23 14:02 O2 Del Method Room Air 11/14/23 14:02 BMI result Body Mass Index 21.8 Appearance: Alert. Oriented X3. No acute distress. Eyes: Pupils equal, round and reactive to light. ENT: Pharynx normal. Neck: Normal inspection. Neck supple. CVS: Normal heart rate and rhythm. Pulses normal. Respiratory: No respiratory distress. Breath sounds normal. Abdomen: Soft and nontender. Skin: Skin warm and dry. Normal skin color. Normal skin turgor. Extremities: No lower extremity edema. No calf ttp R knee no swelling normal ROM Neuro: Oriented X 3. No motor deficit. No sensory deficit. CN2-12 intact Course Course Course Narrative: Physician observation started at 259pm. Patient placed in physician observation because the patient needed more time for CARE team to assess the need for psych admission. At the time observation was started the patient's vitals were stable, patient is alert and oriented, Neuro: nonfocal, CV RRR, Lungs clear Medical Decision Making Medical Decision Making MDM Narrative: 63 yo female with PMH of bipolar disorder, personality disorder here with c/o SI and dissociating - she does c/o mild R knee pain but there is no swelling, normal ROM and distal NV intact doubt fracture - will obtain labs and refer to CARE team. Differential Diagnosis Differential Diagnoses: The differential diagnosis associated with the presentation includes personality disorder, SI Admission/Observation Consideration of admission/observation: Escalation of care including admission/observation considered Consult Healthcare Provider Management of the patient was discussed with: Behavioral Health Provider Lab Data [facility] Lab Attestation statement: I reviewed the patient's lab results. 11/14/23 14:27 11/14/23 14:26 Labs: Lab Results 11/14/23 11/14/23 11/14/23 Range/Units 14:23 14:26 14:27 WBC 5.7 (4.8-10.8) X10*3/uL RBC 3.66 L (4.20-5.50) X10*6/uL Hgb 11.2 L (12.0-16.0) g/dl Hct 33.0 L (37.0-47.0) % MCV 90.2 (80.0-98.0) fL MCH 30.6 (27.0-33.0) pg MCHC 33.9 (31.0-35.0) g/dl RDW 12.4 (11.0-16.0) % Plt Count 173 (160-400) X10*3/uL MPV 8.7 L (9.4-12.3) fL Immature Gran % (Auto) 0.2 (0.0-0.4) % Neut % (Auto) 75.5 H (45-73) % Lymph % (Auto) 16.0 L (20-40) % Gove % (Auto) 7.9 (2-11) % Eos % (Auto) 0.0 (0-4) % Baso % (Auto) 0.4 (0-2) % Lymph # (Auto) 0.9 L (1.2-4.9) X10*3/uL Gove # (Auto) 0.5 (0.1-1.2) X10*3/uL Eos # (Auto) 0.0 (0.0-0.4) X10*3/uL Baso # (Auto) 0.0 (0.0-0.2) X10*3/uL Abs Immat Gran (auto) 0.01 (0.00-0.03) X10*3/uL Absolute Neuts (auto) 4.3 (2.0-8.3) x10*3/uL Absolute Nucleated RBC 0.000 (0.0-0.012) X10*3/uL Nucleated RBC % (auto) 0.0 (0.0-0.2) /100WBC Sodium 140 (135-145) mmol/L Potassium 4.1 (3.3-5.1) mmol/L Chloride 104 (96-108) mmol/L Carbon Dioxide 29 (22-29) mmol/L Anion Gap 11 L (12-20) BUN 16 (9-16) mg/dL Creatinine 1.84 H (0.5-1.4) mg/dL Estim Creat Clear Calc 25.2 Estimated GFR 28 Random Glucose 82 (60-115) mg/dL Calcium 9.9 (8.4-10.2) mg/dL Magnesium 2.2 (1.6-2.6) mg/dL Total Bilirubin 0.4 (0.0-1.0) mg/dL Direct Bilirubin 0.2 (0.0-0.5) mg/dL AST 20 (5-31) U/L ALT 16 (0-31) U/L Alkaline Phosphatase 38 L (39-117) U/L Total Protein 6.7 (6.5-8.0) g/dL Albumin 4.3 (3.5-5.0) g/dL TSH 0.15 L (0.32-4.0) uIU/mL Urine Color Yellow Urine Appearance Clear Urine pH 6.5 (5.0-9.0) Ur Specific Bonita <= 1.005 (1.005-1.025) Urine Protein Negative (Neg-Trace) mg/dL Urine Glucose (UA) Negative (Negative) mg/dL Urine Ketones Negative (Negative) mg/dL Urine Blood Negative (Negative) Urine Nitrite Negative (Negative) Ur Leukocyte Esterase Negative (Negative) Urine Opiates Screen Not Detected (Not Detect) Urine Fentanyl Screen Not Detected (Not Detect) Ur Barbiturates Screen Not Detected (Not Detect) Ur Phencyclidine Scrn Not Detected (Not Detect) Ur Amphetamines Screen Not Detected (Not Detect) U Benzodiazepines Scrn Not Detected (Not Detect) Urine Cocaine Screen Not Detected (Not Detect) U Marijuana (THC) Screen Not Detected (Not Detect) Independent Historian Clinical information obtained from an independent historian. History obtained from or confirmed by: EMS External Record Review External record reviewed: Inpatient record Discharge Plan Discharge Clinical Impression: Personality disorder in adult Patient Disposition: Still a Patient Prescriptions: No Action calcium carbonate-vitamin D3 [Calcium + D] 600 mg-5 mcg (200 unit) Tablet 1 tab PO DAILY@1200 levothyroxine 125 mcg Tablet 125 mcg PO DAILY@0600 ziprasidone HCl 20 mg Capsule 100 mg PO BIDWM Rx Instructions: give with food (meal/snack) simvastatin 40 mg tablet 40 mg PO BEDTIME ascorbic acid (vitamin C) 500 mg Tablet 1,000 mg PO DAILY@1200 Daily Multi 18-400 mg-mcg Tablet 1 tab PO DAILY@1200 cholecalciferol (vitamin D3) 25 mcg (1,000 unit) Tablet 25 mcg PO DAILY@1200 clonazepam 0.5 mg Tablet 0.25 mg PO TID PRN (Reason: Anxiety) omeprazole 20 mg capsule,delayed release(DR/EC) 1 cap PO DAILY 30 Days Qty: 30 0RF trihexyphenidyl 2 mg tablet 1 tab PO QAM 30 Days Qty: 30 0RF lamotrigine [Lamictal] 100 mg tablet 250 mg PO BEDTIME lamotrigine 25 mg Tablet 50 mg PO BEDTIME 30 Days Qty: 60 0RF chlorpromazine 25 mg Tablet 75 mg PO BEDTIME 30 Days Qty: 90 0RF chlorpromazine 25 mg Tablet 50 mg PO DAILY 30 Days Qty: 60 0RF
[2023-11-14 14:33] LABS: MANUAL DIFF FLAG NO
[2023-11-14 14:36] LABS: Basophils Percent Auto 0.4 % (0-2); Hemoglobin 11.2 g/dl (12.0-16.0); Imm Gran Abs Auto 0.01 X10*3/uL (0.00-0.03); Imm Gran Pct Auto 0.2 % (0.0-0.4); Lymphocytes Absolute Auto 0.9 X10*3/uL (1.2-4.9); Mean Corpuscular HGB Conc 33.9 g/dl (31.0-35.0); Mean Corpuscular Hemoglobin 30.6 pg (27.0-33.0); Mean Corpuscular Volume 90.2 fL (80.0-98.0); Mean Platelet Volume 8.7 fL (9.4-12.3); Monocytes Absolute Auto 0.5 X10*3/uL (0.1-1.2); Monocytes Percent Auto 7.9 % (2-11); Neutrophils Absolute Auto 4.3 x10*3/uL (2.0-8.3); Neutrophils Percent Auto 75.5 % (45-73); Platelet Count 173 X10*3/uL (160-400); Red Blood Count 3.66 X10*6/uL (4.20-5.50); Red Cell Distribution Width 12.4 % (11.0-16.0); White Blood Count 5.7 X10*3/uL (4.8-10.8)
[2023-11-14 14:37] LABS: Appearance Urine Clear; Color Urine Yellow; Glucose Urine UA Negative (Negative); Leukocyte Esterase Urine Negative (Negative); Nitrite Urine Negative (Negative); PH 6.5 (5.0-9.0); Specific Gravity - Urine <= 1.005 (1.005-1.025); Urine Blood Negative (Negative); Urine Ketones Negative (Negative); Urine Protein Negative (Neg-Trace)
[2023-11-14 14:43] LABS: Amphetamine Screen Urine Not Detected (Not Detect); Barbiturates, Urine Not Detected (Not Detect); Benzodiazepines Screen Urine Not Detected (Not Detect); Cannabinoid Screen Urine Not Detected (Not Detect); Cocaine Screen Urine Not Detected (Not Detect); Fentanyl, urine Not Detected (Not Detect); Opiate Screen Urine Not Detected (Not Detect); Phencyclidine Screen Urine Not Detected (Not Detect)
[2023-11-14 14:56] LABS: Alanine Aminotransferase 16 U/L (0-31); Albumin Level 4.3 g/dL (3.5-5.0); Alkaline Phosphatase 38 U/L (39-117); Anion Gap 11 (12-20); Aspartate Amino Transferase 20 U/L (5-31); Bilirubin Direct 0.2 mg/dL (0.0-0.5); Bilirubin Total 0.4 mg/dL (0.0-1.0); Blood Urea Nitrogen 16 mg/dL (9-16); Calcium 9.9 mg/dL (8.4-10.2); Carbon Dioxide 29 mmol/L (22-29); Chloride 104 mmol/L (96-108); Creatinine Clr Calc Pharmacy 25.2; Estimated Glomerular Filt Rate 28; Glucose Random 82 mg/dL (60-115); Magnesium 2.2 mg/dL (1.6-2.6); Potassium 4.1 mmol/L (3.3-5.1); Sodium 140 mmol/L (135-145); Total Protein 6.7 g/dL (6.5-8.0)
[2023-11-14 15:10] LABS: TSH reflex Free T4 0.15 uIU/mL (0.32-4.0)
[2023-11-14 15:16] LABS: COVID-19 Test Negative (Negative); IDNOW Serial# BCCEAD1C
[2023-11-14 15:45] LABS: Free T4 (Free Thyroxine) 1.51 ng/dL (0.71-1.85)
[2023-11-14 18:52] VITALS: BP 121/68; PULSE 80; RESP 16; TEMP 36.8; O2SAT 98
[2023-11-14] MEDS: lamoTRIgine 100 MG TABLET 250 MG PO (20:58)
[2023-11-14] MEDS: Atorvastatin Calcium 20 MG TABLET PO (20:58)
[2023-11-14] MEDS: chlorproMAZINE HCl 25 MG TABLET 75 MG PO (20:59)
[2023-11-14] MEDS: clonazePAM 0.5 MG TABLET 0.25 MG PO (21:00)
[2023-11-14] MEDS: Ziprasidone 20 MG CAPSULE 100 MG PO (21:00)
[2023-11-14 21:47] LABS: Ethanol < 10 mg/dL
--- NOTE | 2023-11-14 22:00 | PC.NURSE ---
Patient took her HS medications without issues, came to nurse station approximately 45 minutes later for more water because she felt she had not swallowed the medication all the way. Patient was calm and cooperative with no s/s of distress. Patient was given more water and afterwards she felt as if the medication went down all the way. Patient then ambulated back to her room.
--- NOTE | 2023-11-15 02:49 | PC.NURSE ---
Patient resting on bed with eyes closed at this time, chest rise equal, no s/s of distress noted.
[2023-11-15] MEDS: Levothyroxine Sodium 125 MCG TABLET PO (05:33)
[2023-11-15] MEDS: Omeprazole 20 MG CAPSULE.DR PO (05:33)
[2023-11-15 05:44] VITALS: BP 143/81; PULSE 78; RESP 16; TEMP 36.3; O2SAT 97
[2023-11-15] MEDS: lamoTRIgine 25 MG TABLET 50 MG PO (08:53)
[2023-11-15] MEDS: Trihexyphenidyl HCL 2 MG TABLET PO (08:54)
[2023-11-15] MEDS: chlorproMAZINE HCl 25 MG TABLET 50 MG PO (08:54)
[2023-11-15] MEDS: Ziprasidone 20 MG CAPSULE 100 MG PO ×2 (08:54→18:57)
[2023-11-15] MEDS: Cholecalciferol (Vitamin D3) 25 MCG TABLET PO (12:55)
[2023-11-15] MEDS: Multivitamin TABLET 1 TAB PO (12:55)
[2023-11-15] MEDS: Calcium + Vitamin D 250 MG TABLET 500 MG PO (12:55)
[2023-11-15] MEDS: Ascorbic Acid 500 MG TABLET 1000 MG PO (12:56)
[2023-11-15] MEDS: clonazePAM 0.5 MG TABLET 0.25 MG PO ×2 (14:03→23:00)
--- NOTE | 2023-11-15 14:07 | MHC.CARE ---
Statewide bedsearch conducted, unfortunately no beds are available, RAD Team to continue bedsearch tomorrow if deemed necessay
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
[2023-11-15 15:40] VITALS: BP 132/85; PULSE 76; RESP 16; TEMP 36.3; O2SAT 100
--- NOTE | 2023-11-15 17:04 | PC.NURSE ---
t/w went to medicate pt with Jeremías scheduled for 1700. pt sts she normally takes it at 2100, questioning why she is getting it now. called pharmacy, pharmacy stated the pt is scheduled for this time due to having to take with food and it being dinner time. pt makes a good point stating she takes all medications with pudding. dinner has not yet arrived. will hold off until pt meal tray is here to administer.
[2023-11-15] MEDS: Atorvastatin Calcium 20 MG TABLET PO (20:16)
[2023-11-15] MEDS: lamoTRIgine 100 MG TABLET 250 MG PO (20:16)
[2023-11-15] MEDS: chlorproMAZINE HCl 25 MG TABLET 75 MG PO (20:16)
--- NOTE | 2023-11-15 22:44 | PC.NURSE ---
Medications administered as per JAN. crushed and put in pudding. PT request prn for anxiety. PT brought her water cup to nurses stations stating she could no longer have it in her room. PT endorsing AH states alters telling her to stick her finger in water and put it in an electrical socket.
--- NOTE | 2023-11-16 04:47 | PC.NURSE ---
pt resting with eyes closed. respirations even and unlabored.
[2023-11-16 05:30] VITALS: BP 138/82; PULSE 87; RESP 15; TEMP 36.5; O2SAT 100
[2023-11-16] MEDS: Levothyroxine Sodium 125 MCG TABLET PO (06:40)
[2023-11-16] MEDS: Omeprazole 20 MG CAPSULE.DR PO (06:40)
[2023-11-16] MEDS: Ziprasidone 20 MG CAPSULE 100 MG PO ×2 (08:41→17:29)
[2023-11-16] MEDS: lamoTRIgine 25 MG TABLET 50 MG PO (08:42)
[2023-11-16] MEDS: chlorproMAZINE HCl 25 MG TABLET 50 MG PO (08:42)
[2023-11-16] MEDS: Trihexyphenidyl HCL 2 MG TABLET PO (09:53)
[2023-11-16] MEDS: Ascorbic Acid 500 MG TABLET 1000 MG PO (12:20)
[2023-11-16] MEDS: Multivitamin TABLET 1 TAB PO (12:20)
[2023-11-16] MEDS: Cholecalciferol (Vitamin D3) 25 MCG TABLET PO (12:20)
[2023-11-16] MEDS: Calcium + Vitamin D 250 MG TABLET 500 MG PO (12:20)
[2023-11-16] MEDS: clonazePAM 0.5 MG TABLET 0.25 MG PO ×2 (14:25→19:28)
--- NOTE | 2023-11-16 19:07 | PC.NURSE ---
patient appears to remain at rest?relaxing in room periodically asking for snacks able to let needs be known, patient appears in no distress.
[2023-11-16 20:38] VITALS: BP 131/70; PULSE 77; RESP 18; TEMP 36.2; O2SAT 96
[2023-11-16] MEDS: lamoTRIgine 100 MG TABLET 250 MG PO (20:47)
[2023-11-16] MEDS: chlorproMAZINE HCl 25 MG TABLET 75 MG PO (20:47)
[2023-11-16] MEDS: Atorvastatin Calcium 20 MG TABLET PO (20:48)
[2023-11-17 02:19] VITALS: BP 137/89; PULSE 87; RESP 15; TEMP 36.8; O2SAT 98
[2023-11-17] MEDS: Levothyroxine Sodium 125 MCG TABLET PO (06:01)
[2023-11-17] MEDS: Omeprazole 20 MG CAPSULE.DR PO (06:01)
[2023-11-17] MEDS: clonazePAM 0.5 MG TABLET 0.25 MG PO ×2 (06:53→22:23)
--- NOTE | 2023-11-17 09:18 | ECG_ITS ---
Test Reason : QT INTERVAL Blood Pressure : / mmHG Vent. Rate : 065 BPM Atrial Rate : 065 BPM P-R Int : 166 ms QRS Dur : 078 ms QT Int : 424 ms P-R-T Axes : 080 013 064 degrees QTc Int : 440 ms Normal sinus rhythm Normal ECG When compared with ECG of 15-OCT-2023 16:32, No significant change was found Referred By: Colten Ann Electronically Signed By:WILMER MONIQUE MD
[2023-11-17 09:32] LABS: COVID-19 Test Negative (Negative); IDNOW Serial# 08D9AD1C
[2023-11-17] MEDS: Trihexyphenidyl HCL 2 MG TABLET PO (09:56)
[2023-11-17] MEDS: Ziprasidone 20 MG CAPSULE 100 MG PO ×2 (09:56→18:18)
[2023-11-17] MEDS: chlorproMAZINE HCl 25 MG TABLET 50 MG PO (09:57)
[2023-11-17] MEDS: lamoTRIgine 25 MG TABLET 50 MG PO (09:57)
[2023-11-17] MEDS: Ascorbic Acid 500 MG TABLET 1000 MG PO (13:58)
[2023-11-17] MEDS: Calcium + Vitamin D 250 MG TABLET 500 MG PO (13:58)
[2023-11-17] MEDS: Cholecalciferol (Vitamin D3) 25 MCG TABLET PO (13:58)
[2023-11-17] MEDS: Multivitamin TABLET 1 TAB PO (13:59)
[2023-11-17 14:05] VITALS: BP 132/72; PULSE 85; RESP 18; TEMP 36.6; O2SAT 97
--- NOTE | 2023-11-17 15:27 | PC.NURSE ---
Maryse visible in milieu this shift. Social with peers and pleasant when engaged. Medication adherent and requires medications crushed into jello and capsules placed into jello. Denies SI/HI/AVH but does endorse feeling sad and wanting help . Advocating to go to a unit where she could engage in groups. Gait slow and steady. Appetite good.
[2023-11-17 21:50] VITALS: BP 141/88; PULSE 84; TEMP 36.4
[2023-11-17] MEDS: chlorproMAZINE HCl 25 MG TABLET 75 MG PO (22:18)
[2023-11-17] MEDS: lamoTRIgine 100 MG TABLET 250 MG PO (22:19)
[2023-11-17] MEDS: Atorvastatin Calcium 20 MG TABLET PO (22:23)
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
[2023-11-18 08:00] VITALS: BP 148/80; PULSE 86; RESP 16; TEMP 36.4; O2SAT 94
[2023-11-18] MEDS: Levothyroxine Sodium 125 MCG TABLET PO (08:44)
[2023-11-18] MEDS: Omeprazole 20 MG CAPSULE.DR PO (08:44)
--- NOTE | 2023-11-18 09:33 | PHA.MEDREC ---
Pharmacy Consult ? Medication Reconciliation Pharmacy has completed the medication reconciliation, called pharmacy and went off claims history.
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
[2023-11-18] MEDS: lamoTRIgine 25 MG TABLET 50 MG PO (09:55)
[2023-11-18] MEDS: Ziprasidone 20 MG CAPSULE 100 MG PO ×2 (09:55→18:13)
[2023-11-18] MEDS: chlorproMAZINE HCl 25 MG TABLET 50 MG PO (09:55)
[2023-11-18] MEDS: Trihexyphenidyl HCL 2 MG TABLET PO (09:55)
[2023-11-18] MEDS: Ascorbic Acid 500 MG TABLET 1000 MG PO (12:29)
[2023-11-18] MEDS: Cholecalciferol (Vitamin D3) 25 MCG TABLET PO (12:29)
[2023-11-18] MEDS: Calcium + Vitamin D 250 MG TABLET 500 MG PO (12:29)
[2023-11-18] MEDS: Multivitamin TABLET 1 TAB PO (12:30)
[2023-11-18] MEDS: clonazePAM 0.5 MG TABLET 0.25 MG PO ×2 (12:55→17:18)
[2023-11-18 18:00] VITALS: BP 138/77; PULSE 83; RESP 16; TEMP 36.4; O2SAT 94
[2023-11-18] MEDS: chlorproMAZINE HCl 25 MG TABLET 75 MG PO (20:29)
[2023-11-18] MEDS: lamoTRIgine 100 MG TABLET 250 MG PO (20:29)
[2023-11-18] MEDS: Atorvastatin Calcium 20 MG TABLET PO (20:29)
[2023-11-19] MEDS: Omeprazole 20 MG CAPSULE.DR PO (06:35)
[2023-11-19] MEDS: Levothyroxine Sodium 125 MCG TABLET PO (06:35)
[2023-11-19 08:00] VITALS: BP 157/86; PULSE 79; RESP 16; TEMP 36.5; O2SAT 99
[2023-11-19] MEDS: lamoTRIgine 25 MG TABLET 50 MG PO (09:28)
[2023-11-19] MEDS: chlorproMAZINE HCl 25 MG TABLET 50 MG PO (09:28)
[2023-11-19] MEDS: Ziprasidone 20 MG CAPSULE 100 MG PO ×2 (09:28→16:23)
[2023-11-19] MEDS: Trihexyphenidyl HCL 2 MG TABLET PO (09:29)
--- NOTE | 2023-11-19 10:03 | HO.PSYCHPN ---
Subjective Subjective Date of Service: 11/19/23 Reason For Visit: SI Subjective Notes: Conditional Voluntary Interim History: Reviewed with . Tearful during 1:1. Patient reports she is feeling worried about my alters coming out and trying to make me fall. They want to hurt me because they want to have fun but I don't have anything fun to do . attending groups. She reports sleeping well. denies SI/HI/VH. Medication Compliance: Yes Side effects from medications: No Attending Groups: Yes Review of Systems Constitutional: Reports as per HPI Eyes: Reports as per HPI Reports as per HPI Cardiovascular: Reports as per HPI Respiratory: Reports as per HPI Gastrointestinal: Reports as per HPI Genitourinary: Reports as per HPI Musculoskeletal: Reports as per HPI Skin/Breast: Reports as per HPI Reports as per HPI Psychiatric: Reports as per HPI Endocrine: Reports as per HPI Hematologic/Lymphatic: Reports as per HPI Allergic/Immunologic: Reports as per HPI Mental Status Exam Mental Status Exam Narrative: Pt is alert and oriented; behavior is cooperative, tearful and calm; dressed in casual attire; mood is described as depressed ; eye contact appropriate; Speech is normal rate, volume and prosody and not pressured; organized and goal directed; she reports her alters are trying to hurt her by making her fall ; denies SI/HI/VH. Diagnostics Vital Signs (24Hr): Vital Signs - 24 hr 11/18/23 18:00 11/19/23 08:00 Temperature 97.5 F 97.7 F Pulse Rate 83 79 Respiratory Rate 16 16 Blood Pressure 138/77 157/86 H Pulse Oximetry 94 99 Oxygen Delivery Method Room Air Room Air BMI result Body Mass Index 21.8 Labs 11/14/23 14:27 11/14/23 14:26 Medications Medications Current Medications Acetaminophen (Acetaminophen 325 Mg Tablet) 650 mg PO Q6H PRN PRN Reason: Headache/Pain Mild Scale (1-3) Al Hydroxide/Mg Hydroxide (Magnesium Hydrox/Alum Hydrox 30 Ml Oral.Susp) 30 ml PO Q6H PRN PRN Reason: Heartburn/Nausea Ascorbic Acid (Ascorbic Acid 500 Mg Tablet) 1,000 mg PO DAILY@1200 [facility] Last Admin: 11/18/23 12:29 Dose: 1,000 mg Atorvastatin Calcium (Atorvastatin Calcium 20 Mg Tablet) 20 mg PO BEDTIME [facility] Last Admin: 11/18/23 20:29 Dose: 20 mg Calcium Carbonate/Cholecalciferol (Calcium + Vitamin D 250 Mg Tablet) 500 mg PO DAILY@1200 [facility] Last Admin: 11/18/23 12:29 Dose: 500 mg Chlorpromazine HCl (Chlorpromazine Hcl 25 Mg Tablet) 50 mg PO DAILY [facility] Last Admin: 11/19/23 09:28 Dose: 50 mg Chlorpromazine HCl (Chlorpromazine Hcl 25 Mg Tablet) 75 mg PO BEDTIME [facility] Last Admin: 11/18/23 20:29 Dose: 75 mg Clonazepam (Clonazepam 0.5 Mg Tablet) 0.25 mg PO TID PRN PRN Reason: Anxiety Last Admin: 11/18/23 17:18 Dose: 0.25 mg Hydroxyzine HCl (Hydroxyzine Hcl 25 Mg Tablet) 25 mg PO Q6H PRN PRN Reason: Anxiety Lamotrigine (Lamotrigine 100 Mg Tablet) 250 mg PO BEDTIME [facility] Last Admin: 11/18/23 20:29 Dose: 250 mg Lamotrigine (Lamotrigine 25 Mg Tablet) 50 mg PO DAILY [facility] Last Admin: 11/19/23 09:28 Dose: 50 mg Levothyroxine Sodium (Levothyroxine Sodium 125 Mcg Tablet) 125 mcg PO DAILY@0600 [facility] Last Admin: 11/19/23 06:35 Dose: 125 mcg Magnesium Hydroxide (Milk Of Magnesia 30 Ml Oral.Susp) 30 ml PO DAILY PRN PRN Reason: Constipation Multivitamins/Vitamin C (Multivitamin Tablet) 1 tab PO DAILY@1200 [facility] Last Admin: 11/18/23 12:30 Dose: 1 tab Nicotine Polacrilex (Nicotine Polacrilex 2 Mg Gum) 4 mg BUCCAL Q2H PRN PRN Reason: Nicotine Cravings Omeprazole (Omeprazole 20 Mg Capsule.Dr) 20 mg PO DAILY@0630 [facility] Last Admin: 11/19/23 06:35 Dose: 20 mg Trazodone HCl (Trazodone Hcl 50 Mg Tablet) 50 mg PO BEDTIME MRX1 PRN PRN Reason: Insomnia Trihexyphenidyl HCl (Trihexyphenidyl Hcl 2 Mg Tablet) 2 mg PO DAILY [facility] Last Admin: 11/19/23 09:29 Dose: 2 mg Vitamin D (Cholecalciferol (Vitamin D3) 25 Mcg Tablet) 25 mcg PO DAILY@1200 [facility] Last Admin: 11/18/23 12:29 Dose: 25 mcg Ziprasidone (Ziprasidone 20 Mg Capsule) 100 mg PO BIDWM [facility] Last Admin: 11/19/23 09:28 Dose: 100 mg Allergies Allergies Allergy/AdvReac Type Severity Reaction Status Date / Time Penicillins [PENICILLINS] Allergy Severe HIVES Verified 11/03/23 19:53 sulfamethoxazole Allergy Severe DIARRHEA Verified 11/03/23 19:53 [From BACTRIM] trimethoprim [From BACTRIM] Allergy Severe DIARRHEA Verified 11/03/23 19:53 aripiprazole [From ABILIFY] Allergy Intermediate ATAXIA Verified 11/03/23 19:53 aspirin [ASPIRIN] Allergy Intermediate STOMACH Verified 11/03/23 19:53 CRAMPS benztropine [From COGENTIN] Allergy Intermediate CONFUSION, Verified 11/03/23 19:53 memory loss bupropion [BUPROPION] Allergy Intermediate DIZZINESS Verified 11/03/23 19:53 erythromycin base Allergy Intermediate GI UPSET Verified 11/03/23 19:53 [ERYTHROMYCIN BASE] ibuprofen [From MOTRIN] Allergy Intermediate STOMACH Verified 11/03/23 19:53 CRAMPS olanzapine [From ZYPREXA] Allergy Intermediate TONGUE Verified 11/03/23 19:53 MOVEMENTS perphenazine [From TRILAFON] Allergy Intermediate ARM AND Verified 11/03/23 19:53 LEG MOVEMENTS, FALL risperidone [From RISPERDAL] Allergy Intermediate TONGUE Verified 11/03/23 19:53 MOVEMENT milk Allergy Drowsy Verified 11/17/23 16:52 egg AdvReac Stomach Verified 11/03/23 19:53 Upset From INDERAL Allergy Intermediate WHEEZING Uncoded 03/12/22 08:56 Assessment & Plan Assessment & Plan (1) Bipolar disorder: Status: Acute Code(s): F31.9 - Bipolar disorder, unspecified (2) PTSD (post-traumatic stress disorder): Status: Acute Code(s): F43.10 - Post-traumatic stress disorder, unspecified Plan Patient is a 63 year old female with hx of Bipolar d/o and PTSD who was recently on M3, presented to ER via ambulance d/t suicidal ideation secondary to her personality alters telling her to harm herself and her mother. Plan: CV 15 minute safety checks continue home medications obtain collateral discharge planning 11/19: Tearful during 1:1. Patient reports she is feeling worried about my alters coming out and trying to make me fall. They want to hurt me because they want to have fun but I don't have anything fun to do . attending groups. She reports sleeping well. denies SI/HI/VH. Continue current tx plan. Patient educated on: diagnosis, medication risk/benefits and therapeutic strategies Informed Consent: understands Reason for continued inpatient stay Substantial Risk for: med/psych decompensation Time Spent With Patient Time: Total time managing care of this patient today _30___ minutes.
[2023-11-19] MEDS: clonazePAM 0.5 MG TABLET 0.25 MG PO ×2 (10:21→19:06)
[2023-11-19] MEDS: Calcium + Vitamin D 250 MG TABLET 500 MG PO (12:56)
[2023-11-19] MEDS: Ascorbic Acid 500 MG TABLET 1000 MG PO (12:56)
[2023-11-19] MEDS: Multivitamin TABLET 1 TAB PO (12:57)
[2023-11-19] MEDS: Cholecalciferol (Vitamin D3) 25 MCG TABLET PO (12:57)
[2023-11-19 18:00] VITALS: BP 145/78; PULSE 89; TEMP 36.6; O2SAT 100
[2023-11-19] MEDS: Atorvastatin Calcium 20 MG TABLET PO (22:19)
[2023-11-19] MEDS: lamoTRIgine 100 MG TABLET 250 MG PO (22:19)
[2023-11-19] MEDS: chlorproMAZINE HCl 25 MG TABLET 75 MG PO (22:19)
[2023-11-20] MEDS: Levothyroxine Sodium 125 MCG TABLET PO (06:19)
[2023-11-20] MEDS: Omeprazole 20 MG CAPSULE.DR PO (06:19)
[2023-11-20 07:00] VITALS: BMI 22.4
[2023-11-20 08:15] VITALS: BP 129/95; PULSE 90; RESP 18; TEMP 36.9; O2SAT 100
[2023-11-20] MEDS: Ziprasidone 20 MG CAPSULE 100 MG PO ×2 (09:42→20:55)
[2023-11-20] MEDS: chlorproMAZINE HCl 25 MG TABLET 50 MG PO (09:43)
[2023-11-20] MEDS: Trihexyphenidyl HCL 2 MG TABLET PO (09:43)
[2023-11-20] MEDS: lamoTRIgine 25 MG TABLET 50 MG PO (09:44)
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
[2023-11-20] MEDS: Cholecalciferol (Vitamin D3) 25 MCG TABLET PO (11:49)
[2023-11-20] MEDS: Multivitamin TABLET 1 TAB PO (11:49)
[2023-11-20] MEDS: Calcium + Vitamin D 250 MG TABLET 500 MG PO (11:49)
[2023-11-20] MEDS: Ascorbic Acid 500 MG TABLET 1000 MG PO (11:49)
[2023-11-20 18:00] VITALS: BP 146/73; PULSE 84; TEMP 36.6; O2SAT 100
[2023-11-20] MEDS: lamoTRIgine 100 MG TABLET 250 MG PO (20:57)
[2023-11-20] MEDS: Atorvastatin Calcium 20 MG TABLET PO (20:58)
[2023-11-20] MEDS: chlorproMAZINE HCl 25 MG TABLET 75 MG PO (21:13)
[2023-11-21] MEDS: Levothyroxine Sodium 125 MCG TABLET PO (06:24)
[2023-11-21 08:00] VITALS: BP 170/77; PULSE 80; RESP 16; TEMP 36.9; O2SAT 99
[2023-11-21] MEDS: Trihexyphenidyl HCL 2 MG TABLET PO (09:54)
[2023-11-21] MEDS: Famotidine 20 MG TABLET PO (09:54)
[2023-11-21] MEDS: chlorproMAZINE HCl 25 MG TABLET 50 MG PO (09:54)
[2023-11-21] MEDS: lamoTRIgine 25 MG TABLET 50 MG PO (09:54)
[2023-11-21] MEDS: Ziprasidone 20 MG CAPSULE 100 MG PO ×3 (09:54→19:41)
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
[2023-11-21] MEDS: Calcium + Vitamin D 250 MG TABLET 500 MG PO (13:11)
[2023-11-21] MEDS: Ascorbic Acid 500 MG TABLET 1000 MG PO (13:11)
[2023-11-21] MEDS: Cholecalciferol (Vitamin D3) 25 MCG TABLET PO (13:12)
[2023-11-21] MEDS: Multivitamin TABLET 1 TAB PO (13:12)
[2023-11-21 18:00] VITALS: BP 127/69; PULSE 85; TEMP 36.6; O2SAT 97
[2023-11-21] MEDS: lamoTRIgine 100 MG TABLET 250 MG PO (19:40)
[2023-11-21] MEDS: chlorproMAZINE HCl 25 MG TABLET 75 MG PO (19:40)
[2023-11-21] MEDS: Atorvastatin Calcium 20 MG TABLET PO (19:41)
[2023-11-22] MEDS: Levothyroxine Sodium 125 MCG TABLET PO (06:15)
[2023-11-22 08:29] VITALS: BP 145/75; PULSE 80; RESP 18; TEMP 36.8; O2SAT 97
[2023-11-22] MEDS: lamoTRIgine 25 MG TABLET 50 MG PO (09:02)
[2023-11-22] MEDS: Ziprasidone 20 MG CAPSULE 100 MG PO ×2 (09:02→18:36)
[2023-11-22] MEDS: Trihexyphenidyl HCL 2 MG TABLET PO (09:03)
[2023-11-22] MEDS: chlorproMAZINE HCl 25 MG TABLET 50 MG PO (09:03)
[2023-11-22] MEDS: Famotidine 20 MG TABLET PO (09:03)
[2023-11-22] MEDS: Multivitamin TABLET 1 TAB PO (13:00)
[2023-11-22] MEDS: Ascorbic Acid 500 MG TABLET 1000 MG PO (13:00)
[2023-11-22] MEDS: Cholecalciferol (Vitamin D3) 25 MCG TABLET PO (13:00)
[2023-11-22] MEDS: Calcium + Vitamin D 250 MG TABLET 500 MG PO (13:00)
[2023-11-22 18:00] VITALS: BP 134/77; PULSE 89; RESP 16; TEMP 37; O2SAT 99
[2023-11-22] MEDS: lamoTRIgine 100 MG TABLET 250 MG PO (21:07)
[2023-11-22] MEDS: chlorproMAZINE HCl 25 MG TABLET 75 MG PO (21:08)
[2023-11-22] MEDS: Atorvastatin Calcium 20 MG TABLET PO (21:08)
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
[2023-11-23] MEDS: Levothyroxine Sodium 125 MCG TABLET PO (05:52)
[2023-11-23 06:00] VITALS: BP 131/82; PULSE 70; TEMP 36.5
[2023-11-23] MEDS: Famotidine 20 MG TABLET PO (08:45)
[2023-11-23] MEDS: Ziprasidone 20 MG CAPSULE 100 MG PO ×2 (08:45→18:19)
[2023-11-23] MEDS: chlorproMAZINE HCl 25 MG TABLET 50 MG PO (08:46)
[2023-11-23] MEDS: Trihexyphenidyl HCL 2 MG TABLET PO (08:46)
[2023-11-23] MEDS: lamoTRIgine 25 MG TABLET 50 MG PO (08:46)
[2023-11-23] MEDS: Ascorbic Acid 500 MG TABLET 1000 MG PO (12:32)
[2023-11-23] MEDS: Calcium + Vitamin D 250 MG TABLET 500 MG PO (12:32)
[2023-11-23] MEDS: Cholecalciferol (Vitamin D3) 25 MCG TABLET PO (12:32)
[2023-11-23] MEDS: Multivitamin TABLET 1 TAB PO (12:32)
[2023-11-23 16:28] VITALS: BP 133/64; PULSE 80; RESP 16; TEMP 36.4; O2SAT 99
[2023-11-23] MEDS: Atorvastatin Calcium 20 MG TABLET PO (20:04)
[2023-11-23] MEDS: chlorproMAZINE HCl 25 MG TABLET 75 MG PO (20:04)
[2023-11-23] MEDS: lamoTRIgine 100 MG TABLET 250 MG PO (20:04)
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
[2023-11-24] MEDS: Levothyroxine Sodium 125 MCG TABLET PO (05:57)
[2023-11-24 08:39] VITALS: BP 169/82; PULSE 89; RESP 16; TEMP 36.5; O2SAT 95
[2023-11-24] MEDS: lamoTRIgine 25 MG TABLET 50 MG PO (09:48)
[2023-11-24] MEDS: Famotidine 20 MG TABLET PO (09:48)
[2023-11-24] MEDS: Trihexyphenidyl HCL 2 MG TABLET PO (09:48)
[2023-11-24] MEDS: Ziprasidone 20 MG CAPSULE 100 MG PO ×2 (09:48→18:44)
[2023-11-24] MEDS: chlorproMAZINE HCl 25 MG TABLET 50 MG PO ×2 (09:48→21:08)
[2023-11-24] MEDS: Multivitamin TABLET 1 TAB PO (12:49)
[2023-11-24] MEDS: Cholecalciferol (Vitamin D3) 25 MCG TABLET PO (12:49)
[2023-11-24] MEDS: Calcium + Vitamin D 250 MG TABLET 500 MG PO (12:49)
[2023-11-24] MEDS: Ascorbic Acid 500 MG TABLET 1000 MG PO (12:49)
[2023-11-24 18:00] VITALS: BP 147/78; PULSE 82; RESP 17; TEMP 36.6; O2SAT 98
[2023-11-24] MEDS: Atorvastatin Calcium 20 MG TABLET PO (21:07)
[2023-11-24] MEDS: lamoTRIgine 100 MG TABLET 250 MG PO (21:08)
[2023-11-24] MEDS: chlorproMAZINE HCl 25 MG TABLET 75 MG PO (21:09)
[2023-11-24] MEDS: traZODone HCL 50 MG TABLET PO (21:57)
[2023-11-25] MEDS: Levothyroxine Sodium 125 MCG TABLET PO (05:21)
[2023-11-25 08:46] VITALS: BP 137/79; PULSE 94; RESP 16; O2SAT 94
[2023-11-25] MEDS: Famotidine 20 MG TABLET PO (09:17)
[2023-11-25] MEDS: chlorproMAZINE HCl 25 MG TABLET 50 MG PO (09:18)
[2023-11-25] MEDS: lamoTRIgine 25 MG TABLET 50 MG PO (09:18)
[2023-11-25] MEDS: Ziprasidone 20 MG CAPSULE 100 MG PO ×2 (09:18→17:41)
[2023-11-25] MEDS: Trihexyphenidyl HCL 2 MG TABLET PO (09:18)
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
[2023-11-25] MEDS: Multivitamin TABLET 1 TAB PO (13:09)
[2023-11-25] MEDS: Calcium + Vitamin D 250 MG TABLET 500 MG PO (13:09)
[2023-11-25] MEDS: Ascorbic Acid 500 MG TABLET 1000 MG PO (13:10)
[2023-11-25] MEDS: Cholecalciferol (Vitamin D3) 25 MCG TABLET PO (13:10)
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
[2023-11-25 18:00] VITALS: BP 130/70; PULSE 90; RESP 18; TEMP 36.6; O2SAT 97
[2023-11-25] MEDS: Atorvastatin Calcium 20 MG TABLET PO (21:55)
[2023-11-25] MEDS: lamoTRIgine 100 MG TABLET 250 MG PO (21:55)
[2023-11-25] MEDS: chlorproMAZINE HCl 25 MG TABLET 75 MG PO (21:59)
[2023-11-25] MEDS: traZODone HCL 50 MG TABLET PO (21:59)
[2023-11-26] MEDS: Levothyroxine Sodium 125 MCG TABLET PO (05:54)
[2023-11-26 08:00] VITALS: BP 118/78; PULSE 87; TEMP 36.4; O2SAT 100
[2023-11-26] MEDS: Famotidine 20 MG TABLET PO (09:38)
[2023-11-26] MEDS: lamoTRIgine 25 MG TABLET 50 MG PO (09:38)
[2023-11-26] MEDS: Ziprasidone 20 MG CAPSULE 100 MG PO ×2 (09:38→18:34)
[2023-11-26] MEDS: chlorproMAZINE HCl 25 MG TABLET 50 MG PO (09:38)
[2023-11-26] MEDS: Trihexyphenidyl HCL 2 MG TABLET PO (09:39)
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
[2023-11-26] MEDS: Multivitamin TABLET 1 TAB PO (13:45)
[2023-11-26] MEDS: Calcium + Vitamin D 250 MG TABLET 500 MG PO (13:45)
[2023-11-26] MEDS: Ascorbic Acid 500 MG TABLET 1000 MG PO (13:45)
[2023-11-26] MEDS: Cholecalciferol (Vitamin D3) 25 MCG TABLET PO (13:45)
[2023-11-26 18:00] VITALS: BP 118/78; PULSE 87; TEMP 36.4
[2023-11-26] MEDS: Atorvastatin Calcium 20 MG TABLET PO (21:03)
[2023-11-26] MEDS: traZODone HCL 50 MG TABLET PO (21:04)
[2023-11-26] MEDS: lamoTRIgine 100 MG TABLET 250 MG PO (21:04)
[2023-11-26] MEDS: chlorproMAZINE HCl 25 MG TABLET 75 MG PO (21:07)
--- NOTE | 2023-11-27 02:29 | PC.NURSE ---
Late entry for November 20, 2023 at 2135 patient was given Clonazepam 0.25 mg as a prn. 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
[2023-11-27] MEDS: Levothyroxine Sodium 125 MCG TABLET PO (05:32)
[2023-11-27 07:00] VITALS: BMI 23.2
[2023-11-27 08:20] VITALS: BP 130/72; PULSE 93; RESP 18; TEMP 36.9; O2SAT 97
[2023-11-27] MEDS: Ziprasidone 20 MG CAPSULE 100 MG PO ×2 (09:33→18:16)
[2023-11-27] MEDS: chlorproMAZINE HCl 25 MG TABLET 50 MG PO (09:33)
[2023-11-27] MEDS: Trihexyphenidyl HCL 2 MG TABLET PO (09:33)
[2023-11-27] MEDS: lamoTRIgine 25 MG TABLET 50 MG PO (09:33)
[2023-11-27] MEDS: Famotidine 20 MG TABLET PO (09:33)
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
[2023-11-27] MEDS: Calcium + Vitamin D 250 MG TABLET 500 MG PO (13:34)
[2023-11-27] MEDS: Multivitamin TABLET 1 TAB PO (13:34)
[2023-11-27] MEDS: Ascorbic Acid 500 MG TABLET 1000 MG PO (13:34)
[2023-11-27] MEDS: Cholecalciferol (Vitamin D3) 25 MCG TABLET PO (13:35)
[2023-11-27 18:00] VITALS: BP 158/79; PULSE 83; RESP 16; TEMP 36.4; O2SAT 99
[2023-11-27] MEDS: traZODone HCL 50 MG TABLET PO (21:13)
[2023-11-27] MEDS: lamoTRIgine 100 MG TABLET 250 MG PO (21:13)
[2023-11-27] MEDS: Atorvastatin Calcium 20 MG TABLET PO (21:13)
[2023-11-27] MEDS: chlorproMAZINE HCl 25 MG TABLET 75 MG PO (21:14)
[2023-11-28] MEDS: Levothyroxine Sodium 125 MCG TABLET PO (06:23)
[2023-11-28 08:00] VITALS: BP 130/64; PULSE 90; TEMP 36.4; O2SAT 99
[2023-11-28] MEDS: Ziprasidone 20 MG CAPSULE 100 MG PO ×2 (10:07→18:33)
[2023-11-28] MEDS: chlorproMAZINE HCl 25 MG TABLET 50 MG PO (10:07)
[2023-11-28] MEDS: lamoTRIgine 25 MG TABLET 50 MG PO (10:08)
[2023-11-28] MEDS: Famotidine 20 MG TABLET PO (10:08)
[2023-11-28] MEDS: Trihexyphenidyl HCL 2 MG TABLET PO (10:08)
[2023-11-28] MEDS: Calcium + Vitamin D 250 MG TABLET 500 MG PO (13:24)
[2023-11-28] MEDS: Cholecalciferol (Vitamin D3) 25 MCG TABLET PO (13:24)
[2023-11-28] MEDS: Ascorbic Acid 500 MG TABLET 1000 MG PO (13:24)
[2023-11-28] MEDS: Multivitamin TABLET 1 TAB PO (13:25)
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
[2023-11-28 22:00] VITALS: BP 159/89; PULSE 89; RESP 18; TEMP 36.3; O2SAT 99
[2023-11-28] MEDS: lamoTRIgine 100 MG TABLET 250 MG PO (22:06)
[2023-11-28] MEDS: Atorvastatin Calcium 20 MG TABLET PO (22:06)
[2023-11-28] MEDS: chlorproMAZINE HCl 25 MG TABLET 75 MG PO (22:07)
[2023-11-28] MEDS: traZODone HCL 50 MG TABLET PO (23:49)
[2023-11-29] MEDS: Levothyroxine Sodium 125 MCG TABLET PO (06:50)
[2023-11-29 08:20] VITALS: BP 141/75; PULSE 77; TEMP 36.6; O2SAT 94
[2023-11-29] MEDS: Famotidine 20 MG TABLET PO (09:51)
[2023-11-29] MEDS: Trihexyphenidyl HCL 2 MG TABLET PO (09:51)
[2023-11-29] MEDS: lamoTRIgine 25 MG TABLET 50 MG PO (09:51)
[2023-11-29] MEDS: Ziprasidone 20 MG CAPSULE 100 MG PO ×2 (09:51→18:23)
[2023-11-29] MEDS: chlorproMAZINE HCl 25 MG TABLET 50 MG PO (09:51)
[2023-11-29] MEDS: Calcium + Vitamin D 250 MG TABLET 500 MG PO (14:46)
[2023-11-29] MEDS: Ascorbic Acid 500 MG TABLET 1000 MG PO (14:47)
[2023-11-29] MEDS: Cholecalciferol (Vitamin D3) 25 MCG TABLET PO (14:47)
[2023-11-29] MEDS: Multivitamin TABLET 1 TAB PO (14:47)
[2023-11-29 18:00] VITALS: BP 140/80; PULSE 87; RESP 18; TEMP 36.6
[2023-11-29] MEDS: lamoTRIgine 100 MG TABLET 250 MG PO (20:36)
[2023-11-29] MEDS: Atorvastatin Calcium 20 MG TABLET PO (20:38)
[2023-11-29] MEDS: traZODone HCL 50 MG TABLET PO (20:38)
[2023-11-29] MEDS: chlorproMAZINE HCl 25 MG TABLET 75 MG PO (20:38)
[2023-11-29] MEDS: diphenhydrAMINE HCL 25 MG CAPSULE PO (21:23)
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
[2023-11-30] MEDS: Levothyroxine Sodium 125 MCG TABLET PO (06:44)
[2023-11-30] MEDS: Acetaminophen 325 MG TABLET 650 MG PO (06:59)
[2023-11-30 08:00] VITALS: BP 131/81; PULSE 88; TEMP 36.1; O2SAT 98
[2023-11-30] MEDS: lamoTRIgine 25 MG TABLET 50 MG PO (09:48)
[2023-11-30] MEDS: Trihexyphenidyl HCL 2 MG TABLET PO (09:48)
[2023-11-30] MEDS: Famotidine 20 MG TABLET PO (09:48)
[2023-11-30] MEDS: chlorproMAZINE HCl 25 MG TABLET 50 MG PO (09:48)
[2023-11-30] MEDS: Ziprasidone 20 MG CAPSULE 100 MG PO ×2 (09:48→18:34)
[2023-11-30] MEDS: Ascorbic Acid 500 MG TABLET 1000 MG PO (13:48)
[2023-11-30] MEDS: Calcium + Vitamin D 250 MG TABLET 500 MG PO (13:48)
[2023-11-30] MEDS: Cholecalciferol (Vitamin D3) 25 MCG TABLET PO (13:48)
[2023-11-30] MEDS: Multivitamin TABLET 1 TAB PO (13:48)
[2023-11-30 18:00] VITALS: BP 148/71; PULSE 66; RESP 18; TEMP 37; O2SAT 97
[2023-11-30] MEDS: Atorvastatin Calcium 20 MG TABLET PO (21:50)
[2023-11-30] MEDS: chlorproMAZINE HCl 25 MG TABLET 75 MG PO (21:50)
[2023-11-30] MEDS: lamoTRIgine 100 MG TABLET 250 MG PO (21:50)
[2023-11-30] MEDS: traZODone HCL 50 MG TABLET PO (21:50)
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
[2023-12-01] MEDS: Levothyroxine Sodium 125 MCG TABLET PO (06:32)
[2023-12-01 08:27] VITALS: BP 136/66; PULSE 87; TEMP 36; O2SAT 95
[2023-12-01] MEDS: Ziprasidone 20 MG CAPSULE 100 MG PO ×2 (11:00→18:37)
[2023-12-01] MEDS: Famotidine 20 MG TABLET PO (11:00)
[2023-12-01] MEDS: Trihexyphenidyl HCL 2 MG TABLET PO (11:00)
[2023-12-01] MEDS: lamoTRIgine 25 MG TABLET 50 MG PO (11:00)
[2023-12-01] MEDS: chlorproMAZINE HCl 25 MG TABLET 50 MG PO ×2 (11:01→21:20)
[2023-12-01] MEDS: Multivitamin TABLET 1 TAB PO (14:13)
[2023-12-01] MEDS: Calcium + Vitamin D 250 MG TABLET 500 MG PO (14:13)
[2023-12-01] MEDS: Ascorbic Acid 500 MG TABLET 1000 MG PO (14:14)
[2023-12-01] MEDS: Cholecalciferol (Vitamin D3) 25 MCG TABLET PO (14:14)
[2023-12-01 20:20] VITALS: BP 140/96; PULSE 94; RESP 16; TEMP 36.9; O2SAT 100
--- NOTE | 2023-12-01 20:28 | PC.NURSE ---
Assumed care of pt @ 19:30. Up and visible in milieu, participated in art group, interacting with staff and peers appropriately. Requested and given PRN Clonazepam, effect is pending.
[2023-12-01] MEDS: lamoTRIgine 100 MG TABLET 250 MG PO (21:20)
[2023-12-01] MEDS: Atorvastatin Calcium 20 MG TABLET PO (21:21)
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
[2023-12-01] MEDS: chlorproMAZINE HCl 25 MG TABLET 75 MG PO (22:10)
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
[2023-12-02] MEDS: Levothyroxine Sodium 125 MCG TABLET PO (06:42)
[2023-12-02 08:30] VITALS: BP 157/80; PULSE 89; RESP 18; TEMP 36.5; O2SAT 99
[2023-12-02] MEDS: Trihexyphenidyl HCL 2 MG TABLET PO (09:44)
[2023-12-02] MEDS: Ziprasidone 20 MG CAPSULE 100 MG PO (09:44)
[2023-12-02] MEDS: Famotidine 20 MG TABLET PO (09:44)
[2023-12-02] MEDS: lamoTRIgine 25 MG TABLET 50 MG PO (09:44)
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
[2023-12-02] MEDS: chlorproMAZINE HCl 25 MG TABLET 50 MG PO (09:59)
[2023-12-02] MEDS: Cholecalciferol (Vitamin D3) 25 MCG TABLET PO (12:01)
[2023-12-02] MEDS: Multivitamin TABLET 1 TAB PO (12:01)
[2023-12-02] MEDS: Ascorbic Acid 500 MG TABLET 1000 MG PO (12:01)
[2023-12-02] MEDS: Calcium + Vitamin D 250 MG TABLET 500 MG PO (12:01)
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
--- NOTE | 2023-12-04 09:14 | PC.NURSE ---
Addendum entered by Myah Lewis RN 12/04/23 09:21: Late Entry: Original Note: On October @ 17:00, 0.25 mg of Clonazepam was administered to patient.
== END 2023-12-02 15:50 | disposition home or self-care (01) | DRG 885 ==
LOC: HO.ED 14:26 → HO.PM5 11-17 15:10
PROVIDERS: Emergency Medicine Emergency Medical Services; Admitting Provider Psychiatry & Neurology Psychiatry; Emergency Provider Emergency Medicine; PCP Family Medicine; Visit Provider Psychiatry & Neurology Psychiatry
DX: F31.9 Bipolar disorder, unspecified (principal); R45.851 Suicidal ideations; F43.10 Post-traumatic stress disorder, unspecified; E03.9 Hypothyroidism, unspecified; Z20.822 Contact with and (suspected) exposure to COVID-19; Z62.810 Personal history of physical and sexual abuse in childhood; Z87.891 Personal history of nicotine dependence; Z79.899 Other long term (current) drug therapy
CPT/HCPCS: 36415; 80048; 80076; 80307; 81003; 83735; 84439; 84443; 85025; 87635; 93005; 99285; S9485

== ENCOUNTER → 2023-11-17 09:18 | Outpatient (BNV) | payer MEDICARE, MEDICAID, SELFPAY | PROVIDERS: Emergency Provider Emergency Medicine; PCP Family Medicine; Visit Provider Internal Medicine Cardiovascular Disease | DX: R45.851 Suicidal ideations (principal) | CPT/HCPCS: 93010 ==

== ENCOUNTER → 2023-11-17 14:54 | Outpatient (BNV) | payer MEDICARE, MEDICAID, SELFPAY | PROVIDERS: Admitting Provider Psychiatry & Neurology Psychiatry; Emergency Provider Emergency Medicine; PCP Family Medicine; Visit Provider Registered Nurse | DX: F31.4 Bipolar disorder, current episode depressed, severe, without psychotic features (principal); F43.11 Post-traumatic stress disorder, acute | CPT/HCPCS: 90792; 99231; 99232; 99239 ==

== ENCOUNTER → 2023-11-17 14:54 | Outpatient (BNV) | payer MEDICARE, MEDICAID, SELFPAY | PROVIDERS: Admitting Provider Psychiatry & Neurology Psychiatry; Emergency Provider Emergency Medicine; PCP Family Medicine; Visit Provider Psychiatry & Neurology Psychiatry | DX: F31.4 Bipolar disorder, current episode depressed, severe, without psychotic features (principal); F43.11 Post-traumatic stress disorder, acute | CPT/HCPCS: 99231 ==

== ENCOUNTER 2024-03-02 10:21 | Outpatient (REF) | payer MEDICARE, MEDICAID, SELFPAY ==
[2024-03-02 12:48] LABS: MANUAL DIFF FLAG NO
[2024-03-02 13:06] LABS: Basophils Percent Auto 0.2 % (0-2); Hematocrit 35.7 % (37.0-47.0); Imm Gran Abs Auto 0.02 X10*3/uL (0.00-0.03); Imm Gran Pct Auto 0.3 % (0.0-0.4); Lymphocytes Absolute Auto 0.8 X10*3/uL (1.2-4.9); Lymphocytes Percent Auto 12.7 % (20-40); Mean Corpuscular HGB Conc 33.6 g/dl (31.0-35.0); Mean Corpuscular Hemoglobin 30.7 pg (27.0-33.0); Mean Corpuscular Volume 91.3 fL (80.0-98.0); Monocytes Absolute Auto 0.4 X10*3/uL (0.1-1.2); Monocytes Percent Auto 7.1 % (2-11); Neutrophils Absolute Auto 4.9 x10*3/uL (2.0-8.3); Neutrophils Percent Auto 79.7 % (45-73); Platelet Count 183 X10*3/uL (160-400); Red Blood Count 3.91 X10*6/uL (4.20-5.50); White Blood Count 6.2 X10*3/uL (4.8-10.8)
[2024-03-02 13:47] LABS: Anion Gap 13 (12-20); Blood Urea Nitrogen 19 mg/dL (9-16); Carbon Dioxide 29 mmol/L (22-29); Chloride 105 mmol/L (96-108); Estimated Glomerular Filt Rate 32; Potassium 3.9 mmol/L (3.3-5.1); Sodium 143 mmol/L (135-145)
[2024-03-02 13:52] LABS: Free T4 (Free Thyroxine) 1.56 ng/dL (0.71-1.85); Thyroid Stimulating Hormone 0.03 uIU/mL (0.32-4.0)
== END 2024-03-02 10:22 | disposition home or self-care (01) ==
LOC: HO.HMGCLDS 10:21
PROVIDERS: PCP Family Medicine; Visit Provider Family Medicine
DX: N18.30 Chronic kidney disease, stage 3 unspecified (principal); E03.9 Hypothyroidism, unspecified
CPT/HCPCS: 36415; 80051; 82565; 84439; 84443; 84520; 85025

== ENCOUNTER 2024-04-13 10:24 | Emergency (ER) | payer MEDICARE, MEDICAID, SELFPAY ==
--- NOTE | ~2024-04-13 | XR_ITS ---
EXAMINATION: XR SHOULDER, RIGHT CLINICAL INFORMATION: Right shoulder pain following a fall. COMPARISON: None available. TECHNIQUE: AP and scapular Y views of the right shoulder. FINDINGS: No acute fracture or dislocation. Mild acromioclavicular joint space narrowing with small marginal osteophytes. No significant glenohumeral joint space narrowing. No osseous erosion. No abnormal soft tissue calcification. XR/XR shoulder RT min 2V IMPRESSION: 1. No acute fracture or dislocation. 2. Mild acromioclavicular osteoarthritis.
--- NOTE | ~2024-04-13 | CT_ITS ---
STUDY: Unenhanced CT of the head and cervical spine INDICATION: Headache after fall COMPARISON: 10/31/2023 head, 06/23/2018 cervical spine radiograph TECHNIQUE: Continuous helical imaging obtained through the head and cervical spine without IV contrast. Reconstructed images performed in the coronal and sagittal planes. FINDINGS: Head: No intracranial hemorrhage, extra-axial fluid collections, fractures or soft tissue hematomas. Stable left posterior periventricular white matter changes and mild underlying atrophy. No evolving infarct, mass lesion, mass effect or midline shift seen. Mild disconjugate gaze. Sinuses and left mastoid are free of disease. Partial sclerosis right inferior mastoid. Cervical spine: Trace anterolisthesis C2 on C3 seen previously. Mild cervical lordotic straightening. Mild vertebral body height losses of C5 and C6 likely degenerative. Spurring and disc space narrowings at C5-C6 and C6-C7. Facet hypertrophic changes. No neuroforaminal or spinal canal narrowings. Bilateral cervical surgical clips. Bilateral prominent cervical lymph nodes. Clear lung apices. CT/CT head/brain wo IV con IMPRESSION: 1. No acute intracranial pathology. 2. No acute cervical spine injury. Cervical degenerative changes as described. 3. Prominent cervical lymph nodes in the setting of previous neck surgery, details not provided.
--- NOTE | ~2024-04-13 | XR_ITS ---
EXAMINATION: XR HIP, RIGHT CLINICAL INFORMATION: Right hip pain following a fall. COMPARISON: None available. TECHNIQUE: AP view the pelvis as well as AP and frog-leg lateral views of the right hip. FINDINGS: No acute fracture or dislocation. Mild bilateral hip joint space narrowing with small marginal osteophytes. No osseous erosion. No evidence of avascular necrosis. Moderate to severe stool burden. XR/XR hip RT w PEL1V IMPRESSION: 1. No acute fracture or dislocation. 2. Mild bilateral hip osteoarthritis. 3. Moderate to severe stool burden.
--- NOTE | ~2024-04-13 | CT_ITS ---
STUDY: Unenhanced CT of the head and cervical spine INDICATION: Headache after fall COMPARISON: 10/31/2023 head, 06/23/2018 cervical spine radiograph TECHNIQUE: Continuous helical imaging obtained through the head and cervical spine without IV contrast. Reconstructed images performed in the coronal and sagittal planes. FINDINGS: Head: No intracranial hemorrhage, extra-axial fluid collections, fractures or soft tissue hematomas. Stable left posterior periventricular white matter changes and mild underlying atrophy. No evolving infarct, mass lesion, mass effect or midline shift seen. Mild disconjugate gaze. Sinuses and left mastoid are free of disease. Partial sclerosis right inferior mastoid. Cervical spine: Trace anterolisthesis C2 on C3 seen previously. Mild cervical lordotic straightening. Mild vertebral body height losses of C5 and C6 likely degenerative. Spurring and disc space narrowings at C5-C6 and C6-C7. Facet hypertrophic changes. No neuroforaminal or spinal canal narrowings. Bilateral cervical surgical clips. Bilateral prominent cervical lymph nodes. Clear lung apices. CT/CT cervical spine wo IV con IMPRESSION: 1. No acute intracranial pathology. 2. No acute cervical spine injury. Cervical degenerative changes as described. 3. Prominent cervical lymph nodes in the setting of previous neck surgery, details not provided.
[2024-04-13 10:33] VITALS: BP 130/80; PULSE 68; O2SAT 98
[2024-04-13 11:13] VITALS: BP 156/81; PULSE 83; RESP 18; TEMP 36.9; O2SAT 99; BMI 24.6
--- NOTE | 2024-04-13 11:22 | ED_ITS ---
HPI - General Adult General Chief complaint: Fall Stated complaint: FALL,NO OBV INJURY PER EMS Time Seen by Provider: 04/13/24 11:30 Source: patient and EMS Mode of arrival: EMS Limitations: no limitations History of Present Illness HPI narrative: 64-year-old female with a history of PTSD, multiple personality disorder, schizoaffective disorder bipolar type who presents to the ER for evaluation after she fell out of her chair in her kitchen while she was eating this morning. She states she fell while eating in her kitchen. She fell off the chair and onto her right side. She sustained injuries to her right shoulder and right hip per her report. She was unable to get up on her own and use her life Alert button. She thinks she hit her head but denies losing consciousness. She has not on anticoagulation. She reports pain in her right shoulder and right hip. She is able to lift her right lower extremity off of the stretcher but has some pain. She is able to lift her right arm above her head but with discomfort. She denies any preceding chest pain, dizziness, lightheadedness or confusion prior to the fall. She does admit to taking her clonazepam this morning which makes her sleepy. She took her trazodone last night for sleep. She denies taking too many of her medications. MD complaint: Right hip pain, right shoulder pain, lethargy after fall Onset (ago): hour(s) Location: head, right, upper extremity and lower extremity Radiation: non-radiation Severity: moderate Quality: aching Pain Consistency: constant Relieving factors: none Exacerbating factors: movement Associated symptoms: denies other symptoms Treatments prior to arrival: none Related Data Previous Rx's ?Medication ?Instructions ?Recorded acetaminophen 325 mg tablet 650 mg (2 x 325 mg) PO Q6H PRN 12/02/23 Headache/Pain Mild Scale (1-3) #0 tabs ascorbic acid (vitamin C) 500 mg 1,000 mg (2 x 500 mg) PO 12/02/23 tablet DAILY@1200 30 days #30 tabs calcium carbonate 600 mg-vitamin 1 tab PO DAILY@1200 30 days #30 12/02/23 D3 5 mcg (200 unit) tablet tabs chlorpromazine 25 mg tablet 50 mg (2 x 25 mg) PO DAILY 30 days 12/02/23 #60 tabs chlorpromazine 25 mg tablet 75 mg (3 x 25 mg) PO BEDTIME 30 12/02/23 days #90 tabs cholecalciferol (vitamin D3) 25 25 mcg PO DAILY@1200 30 days #30 12/02/23 mcg (1,000 unit) tablet tabs clonazepam 0.5 mg tablet 0.25 mg (1/2 x 0.5 mg) PO TID PRN 12/02/23 Anxiety 30 days #45 tabs famotidine 20 mg tablet 20 mg PO DAILY 30 days #30 tabs 12/02/23 lamotrigine 200 mg tablet 200 mg PO DAILY 30 days #30 tabs 12/02/23 lamotrigine 25 mg tablet 50 mg (2 x 25 mg) PO BID 30 days 12/02/23 #120 tabs levothyroxine 125 mcg tablet 125 mcg PO DAILY@0600 30 days #30 12/02/23 tabs multivitamin-ferrous 1 tab PO DAILY@1200 30 days #30 12/02/23 fumarate-folic acid 18 mg-400 mcg tabs tablet simvastatin 40 mg tablet 40 mg PO BEDTIME 30 days #30 tabs 12/02/23 trazodone 50 mg tablet 50 mg PO BEDTIME PRN Insomnia 30 12/02/23 days #30 tabs trihexyphenidyl 2 mg tablet 2 mg PO QAM 30 days #30 tabs 12/02/23 ziprasidone HCl 20 mg capsule 20 mg PO BIDWM 30 days #60 caps 12/02/23 ziprasidone HCl 80 mg capsule 80 mg PO BIDWM 30 days #60 caps 12/02/23 Allergies Allergy/AdvReac Type Severity Reaction Status Date / Time Penicillins [PENICILLINS] Allergy Severe HIVES Verified 04/13/24 11:19 sulfamethoxazole Allergy Severe DIARRHEA Verified 04/13/24 11:19 [From BACTRIM] trimethoprim [From BACTRIM] Allergy Severe DIARRHEA Verified 04/13/24 11:19 aripiprazole [From ABILIFY] Allergy Intermediate ATAXIA Verified 04/13/24 11:19 aspirin [ASPIRIN] Allergy Intermediate STOMACH Verified 04/13/24 11:19 CRAMPS benztropine [From COGENTIN] Allergy Intermediate CONFUSION, Verified 04/13/24 11:19 memory loss bupropion [BUPROPION] Allergy Intermediate DIZZINESS Verified 04/13/24 11:19 erythromycin base Allergy Intermediate GI UPSET Verified 04/13/24 11:19 [ERYTHROMYCIN BASE] ibuprofen [From MOTRIN] Allergy Intermediate STOMACH Verified 04/13/24 11:19 CRAMPS olanzapine [From ZYPREXA] Allergy Intermediate TONGUE Verified 04/13/24 11:19 MOVEMENTS perphenazine [From TRILAFON] Allergy Intermediate ARM AND Verified 04/13/24 11:19 LEG MOVEMENTS, FALL risperidone [From RISPERDAL] Allergy Intermediate TONGUE Verified 04/13/24 11:19 MOVEMENT milk Allergy Drowsy Verified 04/13/24 11:19 egg AdvReac Stomach Verified 04/13/24 11:19 Upset From INDERAL Allergy Intermediate WHEEZING Uncoded 03/12/22 08:56 Review of Systems 2 Review of Systems: Yes all other systems are reviewed and are negative [facility], [facility] Past Medical History Medical History (Updated 04/14/24 @ 00:01 by Rody Martin) Routine medical exam CKD (chronic kidney disease), stage IV Bipolar disorder Neck pain Murmur GERD (gastroesophageal reflux disease) Hypothyroidism Irritable bowel syndrome (IBS) Hyperlipidemia Anxiety and depression Dissociative identity disorder Surgical History Hx of colonoscopy History of total thyroidectomy Social History Social History Household Members: None Household Members Other:: roommate Housing: Apartment Are you a primary customer care specialist to a significant other at home: No Do you presently have visiting nurse or other home services: Yes (pt has [facility]NA for only one day prior to admission.) Comment: aware of trip hazard Patient Tobacco Use Status: Former Tobacco user Quit Date: Pt quit over 25 years ago Tobacco use type: Cigarette Cigarette Packs Per Day: 1 Cigarettes Per Day: 20.0 Years Smoked: 20 e-Cigarette/Vaping Use: Never Used Second Hand Smoke Exposure: No Advance Directives: No Advance Directives Information Provided: Yes Do you have a plan to hurt others: No Plan service: No Sexual orientation: Did not discuss Physical Exam ED Vital Signs: Vital Signs - 24 hr 04/13/24 11:13 04/13/24 14:57 Temperature 98.4 F 97.9 F Pulse Rate 83 84 Respiratory Rate 18 16 Blood Pressure 156/81 H 146/77 H Pulse Oximetry 99 98 Oxygen Delivery Method Room Air Room Air BMI result Body Mass Index 24.6 Appearance: Alert. Oriented X3. No acute distress. Able to answer questions appropriately. Head: normocephalic, atraumatic. Patient with a kyphotic position of her head Eyes: Pupils 3mm equal, round and reactive to light. ENT: Pharynx normal. No tonsillar swelling or exudate. Neck: Normal inspection. Neck supple. Soft tissue tenderness on the right side of the neck. CVS: Normal heart rate and rhythm. Pulses normal. Respiratory: No respiratory distress. Breath sounds normal. Abdomen: Soft and nontender. +BS x4 Skin: Skin warm and dry. Normal skin color. Normal skin turgor. No rashes. Extremities: Pelvis is stable. Mild tenderness to the right lateral hip and iliac crest. No lower extremity edema. No joint swelling. Able to lift the right lower extremity off the stretcher but with some discomfort. Normal passive range of motion of the right hip and right knee. Tender anterior right shoulder with pain with full abduction. Neurovascularly intact distally. Equal sales and merchandising associate strength bilaterally. Neuro/psych: Oriented X 3. No motor deficit. No sensory deficit. CN II-XII intact. Normal speech and cognition. Gait not tested due to pain Course Course Course Narrative: RME: Written by JAZZMINE Degroot. Patient brought in for fall complaining of right shoulder left hip left lower back pain. Patient on wheelchair. Patient is sleepy pupils constricted. Patient takes Klonopin. Due to patient's drowsy presentation after fall. Drowsiness maybe due to Klonopin but patient brought in immediately to the ED for evaluation. Medications Administered Discontinued Medications Generic Name Dose Route Start Last Admin Trade Name Mitchellq PRN Reason Stop Dose Admin Acetaminophen 650 mg 04/13/24 14:29 04/13/24 15:02 Acetaminophen 325 Mg Tablet PO 04/13/24 14:30 650 mg ONCE ONE Administration Medical Decision Making Medical Decision Making MDM Narrative: 64-year-old female with a history of schizoaffective disorder, bipolar type, multiple personality disorder, PTSD who presents to the ER for evaluation of a fall out of a chair this morning. She reports falling asleep while eating. She denies this is a common occurrence for her. She admits to taking Klonopin earlier today and that it tends to make her sleepy. Denies unintentional overdose. Since arrival to the ER 1 hour ago her mentation has improved. She does report a headache and thinks she hit her head. CT scan of the head and cervical spine were ordered along with x-rays of the hip and right shoulder. Metabolic workup and U tox were also ordered as there were concern for polysubstance/polypharmacy use. Patient's lab workup was unremarkable. Her urine toxicology is negative for benzos and opiates. Her CT scan is negative. She reports taking clonazepam daily, and thinks she took it this morning. We discussed the negative results of her urine toxicology and she does not know how this could be. [employer] reviewed, she had a refill of very low-dose Klonopin picked up earlier this month. Her vital signs are stable. Her x-rays are negative as well. She states she has been more sleepy lately and is working with her therapist and psychiatrist about this. She was advised to decrease or stop her trazodone as this may be causing daytime sleepiness as well. She is in agreement. She is stable for discharge home. Differential Diagnosis Differential Diagnoses: The differential diagnosis associated with the presentation includes Polypharmacy, accidental medication overdose, intracranial hemorrhage, subdural hematoma, intoxication, acute infection, shoulder fracture, hip fracture Admission/Observation Consideration of admission/observation: Escalation of care including admission/observation considered Lab Data MDM Lab Attestation statement: I reviewed the patient's lab results. Chronic kidney disease which is at baseline. No anemia. 04/13/24 12:38 04/13/24 12:38 Labs: Lab Results 04/13/24 04/13/24 Range/Units 12:38 12:43 WBC 7.9 (4.8-10.8) X10*3/uL RBC 4.15 L (4.20-5.50) X10*6/uL Hgb 12.8 (12.0-16.0) g/dl Hct 37.0 (37.0-47.0) % MCV 89.2 (80.0-98.0) fL MCH 30.8 (27.0-33.0) pg MCHC 34.6 (31.0-35.0) g/dl RDW 12.1 (11.0-16.0) % Plt Count 165 (160-400) X10*3/uL MPV 8.8 L (9.4-12.3) fL Immature Gran % (Auto) 0.3 (0.0-0.4) % Neut % (Auto) 79.3 H (45-73) % Lymph % (Auto) 10.3 L (20-40) % [place] % (Auto) 10.0 (2-11) % Eos % (Auto) 0.0 (0-4) % Baso % (Auto) 0.1 (0-2) % Lymph # (Auto) 0.8 L (1.2-4.9) X10*3/uL [place] # (Auto) 0.8 (0.1-1.2) X10*3/uL Eos # (Auto) 0.0 (0.0-0.4) X10*3/uL Baso # (Auto) 0.0 (0.0-0.2) X10*3/uL Abs Immat Gran (auto) 0.02 (0.00-0.03) X10*3/uL Absolute Neuts (auto) 6.3 (2.0-8.3) x10*3/uL Absolute Nucleated RBC 0.000 (0.0-0.012) X10*3/uL Nucleated RBC % (auto) 0.0 (0.0-0.2) /100WBC VBG pH 7.38 (7.32-7.43) VBG pCO2 52 mmHg VBG pO2 34 mmHg VBG HCO3 31 H (22-26) mmol/L VBG O2 Saturation 48.0 % VBG Base Excess 5.5 mmol/L Sodium 145 (135-145) mmol/L Potassium 3.7 (3.3-5.1) mmol/L Chloride 105 (96-108) mmol/L Carbon Dioxide 26 (22-29) mmol/L Anion Gap 18 (12-20) BUN 19 H (9-16) mg/dL Creatinine 1.83 H (0.5-1.4) mg/dL Estim Creat Clear Calc 27.0 Estimated GFR 28 Random Glucose 111 (60-115) mg/dL Calcium 10.6 H D (8.4-10.2) mg/dL Magnesium 2.0 (1.6-2.6) mg/dL Total Bilirubin 0.7 (0.0-1.0) mg/dL Direct Bilirubin 0.2 (0.0-0.5) mg/dL AST 28 (5-31) U/L ALT 30 (0-31) U/L Alkaline Phosphatase 44 (39-117) U/L Total Protein 8.1 H (6.5-8.0) g/dL Albumin 5.0 (3.5-5.0) g/dL Urine Color Yellow Urine Appearance Clear Urine pH 7.5 (5.0-9.0) Ur Specific [place] <= 1.005 (1.005-1.025) Urine Protein Negative (Neg-Trace) mg/dL Urine Glucose (UA) Negative (Negative) mg/dL Urine Ketones Negative (Negative) mg/dL Urine Blood Negative (Negative) Urine Nitrite Negative (Negative) Ur Leukocyte Esterase Negative (Negative) Urine Opiates Screen Not Detected (Not Detect) Ur Buprenorphine Scrn Not Detected (Not Detect) ng/mL Ur Oxycodone Screen Not Detected (Not Detect) ng/mL Urine Methadone Screen Not Detected (Not Detect) ng/mL Urine Fentanyl Screen Not Detected (Not Detect) Ur Barbiturates Screen Not Detected (Not Detect) Ur Phencyclidine Scrn Not Detected (Not Detect) Ur Amphetamines Screen Not Detected (Not Detect) U Benzodiazepines Scrn Not Detected (Not Detect) Urine Cocaine Screen Not Detected (Not Detect) U Marijuana (THC) Screen Not Detected (Not Detect) Ethyl Alcohol < 10 mg/dL Independent Interpretation I performed an independent interpretation of an: Plain X-Ray and CT Scan Interpretation: X-ray of the shoulder and hip without acute fracture appreciated, agree with radiology read CT of the head without edema or bleed. Radiology Impression Discussion of test interpretation with radiology: I have reviewed the radiologist's reading. Radiologist Impression: EXAMINATION: XR HIP, RIGHT CLINICAL INFORMATION: Right hip pain following a fall. COMPARISON: None available. TECHNIQUE: AP view the pelvis as well as AP and frog-leg lateral views of the right hip. FINDINGS: No acute fracture or dislocation. Mild bilateral hip joint space narrowing with small marginal osteophytes. No osseous erosion. No evidence of avascular necrosis. Moderate to severe stool burden. XR/XR hip RT w PEL1V IMPRESSION: 1. No acute fracture or dislocation. 2. Mild bilateral hip osteoarthritis. 3. Moderate to severe stool burden. STUDY: Unenhanced CT of the head and cervical spine INDICATION: Headache after fall COMPARISON: 10/31/2023 head, 06/23/2018 cervical spine radiograph TECHNIQUE: Continuous helical imaging obtained through the head and cervical spine without IV contrast. Reconstructed images performed in the coronal and sagittal planes. FINDINGS: Head: No intracranial hemorrhage, extra-axial fluid collections, fractures or soft tissue hematomas. Stable left posterior periventricular white matter changes and mild underlying atrophy. No evolving infarct, mass lesion, mass effect or midline shift seen. Mild disconjugate gaze. Sinuses and left mastoid are free of disease. Partial sclerosis right inferior mastoid. Cervical spine: Trace anterolisthesis C2 on C3 seen previously. Mild cervical lordotic straightening. Mild vertebral body height losses of C5 and C6 likely degenerative. Spurring and disc space narrowings at C5-C6 and C6-C7. Facet hypertrophic changes. No neuroforaminal or spinal canal narrowings. Bilateral cervical surgical clips. Bilateral prominent cervical lymph nodes. Clear lung apices. CT/CT head/brain wo IV con IMPRESSION: 1. No acute intracranial pathology. 2. No acute cervical spine injury. Cervical degenerative changes as described. 3. Prominent cervical lymph nodes in the setting of previous neck surgery, details not provided. Independent Historian Clinical information obtained from an independent historian. History obtained from or confirmed by: EMS External Record Review External record reviewed: Inpatient record, Outpatient record, Prior outpatient labs and Prior outpatient radiology Prescription Management I considered prescription management with: Pain Medication Chronic Conditions Patient?s care impacted by: Other (PTSD, schizoaffective disorder,) Critical Care Time Critical Care Time Critical Care Time: No Discharge Plan Discharge Clinical Impression: Fall Patient Disposition: Home, Self-Care Instructions: Fall Prevention for Older Adults (ED) Additional Instructions: Your lab workup was unremarkable. Your CT scans and x-rays did not show any evidence of fractures. X-ray of your hip showed some osteoarthritis and constipation. Take Tylenol as needed for pain. Recommend [id number] MiraLax, senna, Colace as needed for constipation. Follow-up with your psychiatrist and therapist. Recommend trial of decreasing your trazodone or holding her trazodone at night to see if this helps with your daytime sleepiness. If you develop new or worsening symptoms call 911 or come back to the ER for further evaluation. Prescriptions: No Action acetaminophen 325 mg Tablet 650 mg PO Q6H PRN (Reason: Headache/Pain Mild Scale (1-3)) Qty: 0 0RF trazodone 50 mg Tablet 50 mg PO BEDTIME PRN (Reason: Insomnia) 30 Days Qty: 30 0RF famotidine 20 mg Tablet 20 mg PO DAILY 30 Days Qty: 30 0RF ziprasidone HCl 80 mg capsule 80 mg PO BIDWM 30 Days Qty: 60 0RF lamotrigine 200 mg tablet 200 mg PO DAILY 30 Days Qty: 30 0RF clonazepam 0.5 mg Tablet 0.25 mg PO TID PRN (Reason: Anxiety) 30 Days Qty: 45 0RF calcium carbonate-vitamin D3 600 mg-5 mcg (200 unit) Tablet 1 tab PO DAILY@1200 30 Days Qty: 30 0RF simvastatin 40 mg tablet 40 mg PO BEDTIME 30 Days Qty: 30 0RF lamotrigine 25 mg tablet 50 mg PO BID 30 Days Qty: 120 0RF ziprasidone HCl 20 mg Capsule 20 mg PO BIDWM 30 Days Qty: 60 0RF Rx Instructions: give with food (meal/snack) ascorbic acid (vitamin C) 500 mg Tablet 1,000 mg PO DAILY@1200 30 Days Qty: 30 0RF chlorpromazine 25 mg Tablet 50 mg PO DAILY 30 Days Qty: 60 0RF chlorpromazine 25 mg Tablet 75 mg PO BEDTIME 30 Days Qty: 90 0RF levothyroxine 125 mcg Tablet 125 mcg PO DAILY@0600 30 Days Qty: 30 0RF trihexyphenidyl 2 mg tablet 2 mg PO QAM 30 Days Qty: 30 0RF cholecalciferol (vitamin D3) 25 mcg (1,000 unit) Tablet 25 mcg PO DAILY@1200 30 Days Qty: 30 0RF [id number] acid 18-400 mg-mcg Tablet 1 tab PO DAILY@1200 30 Days Qty: 30 0RF Discharge Date/Time: 04/13/24 15:49 Print Language: Luxembourgish
[2024-04-13 12:47] LABS: MANUAL DIFF FLAG NO
[2024-04-13 12:50] LABS: Basophils Percent Auto 0.1 % (0-2); Hemoglobin 12.8 g/dl (12.0-16.0); Imm Gran Abs Auto 0.02 X10*3/uL (0.00-0.03); Imm Gran Pct Auto 0.3 % (0.0-0.4); Lymphocytes Absolute Auto 0.8 X10*3/uL (1.2-4.9); Lymphocytes Percent Auto 10.3 % (20-40); Mean Corpuscular HGB Conc 34.6 g/dl (31.0-35.0); Mean Corpuscular Hemoglobin 30.8 pg (27.0-33.0); Mean Corpuscular Volume 89.2 fL (80.0-98.0); Mean Platelet Volume 8.8 fL (9.4-12.3); Monocytes Absolute Auto 0.8 X10*3/uL (0.1-1.2); Neutrophils Absolute Auto 6.3 x10*3/uL (2.0-8.3); Neutrophils Percent Auto 79.3 % (45-73); Platelet Count 165 X10*3/uL (160-400); Red Blood Count 4.15 X10*6/uL (4.20-5.50); Red Cell Distribution Width 12.1 % (11.0-16.0); White Blood Count 7.9 X10*3/uL (4.8-10.8)
[2024-04-13 12:50] LABS: VBG Base Excess 5.5 mmol/L; VBG HCO3 31 mmol/L (22-26); VBG pCO2 52 mmHg; VBG pH 7.38 (7.32-7.43); VBG pO2 34 mmHg
[2024-04-13 12:51] LABS: Appearance Urine Clear; Color Urine Yellow; Glucose Urine UA Negative (Negative); Leukocyte Esterase Urine Negative (Negative); Nitrite Urine Negative (Negative); PH 7.5 (5.0-9.0); Specific Gravity - Urine <= 1.005 (1.005-1.025); Urine Blood Negative (Negative); Urine Ketones Negative (Negative); Urine Protein Negative (Neg-Trace)
[2024-04-13 12:53] LABS: Venous Blood Gas Refer to POC result
[2024-04-13 13:02] LABS: Amphetamine Screen Urine Not Detected (Not Detect); Barbiturates, Urine Not Detected (Not Detect); Benzodiazepines Screen Urine Not Detected (Not Detect); Buprenorphine Scr Not Detected (Not Detect); Cannabinoid Screen Urine Not Detected (Not Detect); Cocaine Screen Urine Not Detected (Not Detect); Fentanyl, urine Not Detected (Not Detect); Methadone Screen, Urine Not Detected (Not Detect); Opiate Screen Urine Not Detected (Not Detect); Oxycodone Screen Urine Not Detected (Not Detect); Phencyclidine Screen Urine Not Detected (Not Detect)
[2024-04-13 13:08] LABS: Alanine Aminotransferase 30 U/L (0-31); Alkaline Phosphatase 44 U/L (39-117); Anion Gap 18 (12-20); Aspartate Amino Transferase 28 U/L (5-31); Bilirubin Direct 0.2 mg/dL (0.0-0.5); Bilirubin Total 0.7 mg/dL (0.0-1.0); Blood Urea Nitrogen 19 mg/dL (9-16); Calcium 10.6 mg/dL (8.4-10.2); Carbon Dioxide 26 mmol/L (22-29); Chloride 105 mmol/L (96-108); Estimated Glomerular Filt Rate 28; Glucose Random 111 mg/dL (60-115); Potassium 3.7 mmol/L (3.3-5.1); Sodium 145 mmol/L (135-145); Total Protein 8.1 g/dL (6.5-8.0)
[2024-04-13 13:11] LABS: Ethanol < 10 mg/dL
[2024-04-13 14:57] VITALS: BP 146/77; PULSE 84; RESP 16; TEMP 36.6; O2SAT 98
[2024-04-13] MEDS: Acetaminophen 325 MG TABLET 650 MG PO (15:02)
== END 2024-04-13 15:49 | disposition home or self-care (01) ==
PROVIDERS: Physician Assistant; Emergency Provider Emergency Medicine; PCP Family Medicine
DX: M25.511 Pain in right shoulder (principal); M25.551 Pain in right hip; R53.83 Other fatigue; R51.9 Headache, unspecified; Z91.81 History of falling; E11.22 Type 2 diabetes mellitus with diabetic chronic kidney disease; N18.4 Chronic kidney disease, stage 4 (severe); F43.10 Post-traumatic stress disorder, unspecified; F25.0 Schizoaffective disorder, bipolar type; Z87.891 Personal history of nicotine dependence; Z79.899 Other long term (current) drug therapy
CPT/HCPCS: 36415; 70450; 72125; 73030; 73502; 80048; 80076; 80307; 81003; 82803; 83735; 85025; 99283; 99284

== ENCOUNTER 2024-04-14 07:57 | Emergency (ER) | payer MEDICARE, MEDICAID, SELFPAY ==
[2024-04-14 08:13] VITALS: BP 121/73; PULSE 92; RESP 16; TEMP 36.9; O2SAT 97; BMI 24.6
[2024-04-14 17:33] VITALS: BP 138/65; PULSE 99; RESP 16; TEMP 37.3; O2SAT 98
[2024-04-14 21:54] VITALS: BP 145/77; PULSE 98; RESP 20; TEMP 37.4; O2SAT 99
--- NOTE | 2024-04-14 21:56 | ED_ITS ---
HPI - Dental/Oral General Chief complaint: Dental/Oral Stated complaint: FALL,L CHEEK SWELLING PER EMS Time Seen by Provider: 04/14/24 21:54 Source: patient Mode of arrival: ambulatory Limitations: no limitations History of Present Illness HPI Narrative: Patient has been complaining of pain and swelling of the left cheek since earlier today was seen here yesterday for falling sleep and fall today also she fell earlier while sitting on the wheelchair polypharmacy was a cause likely no fever no loss of consciousness no significant head injury Related Data Previous Rx's ?Medication ?Instructions ?Recorded acetaminophen 325 mg tablet 650 mg (2 x 325 mg) PO Q6H PRN 12/02/23 Headache/Pain Mild Scale (1-3) #0 tabs ascorbic acid (vitamin C) 500 mg 1,000 mg (2 x 500 mg) PO 12/02/23 tablet DAILY@1200 30 days #30 tabs calcium carbonate 600 mg-vitamin 1 tab PO DAILY@1200 30 days #30 12/02/23 D3 5 mcg (200 unit) tablet tabs chlorpromazine 25 mg tablet 50 mg (2 x 25 mg) PO DAILY 30 days 12/02/23 #60 tabs chlorpromazine 25 mg tablet 75 mg (3 x 25 mg) PO BEDTIME 30 12/02/23 days #90 tabs cholecalciferol (vitamin D3) 25 25 mcg PO DAILY@1200 30 days #30 12/02/23 mcg (1,000 unit) tablet tabs clonazepam 0.5 mg tablet 0.25 mg (1/2 x 0.5 mg) PO TID PRN 12/02/23 Anxiety 30 days #45 tabs famotidine 20 mg tablet 20 mg PO DAILY 30 days #30 tabs 12/02/23 lamotrigine 200 mg tablet 200 mg PO DAILY 30 days #30 tabs 12/02/23 lamotrigine 25 mg tablet 50 mg (2 x 25 mg) PO BID 30 days 12/02/23 #120 tabs levothyroxine 125 mcg tablet 125 mcg PO DAILY@0600 30 days #30 12/02/23 tabs multivitamin-ferrous 1 tab PO DAILY@1200 30 days #30 12/02/23 fumarate-folic acid 18 mg-400 mcg tabs tablet simvastatin 40 mg tablet 40 mg PO BEDTIME 30 days #30 tabs 12/02/23 trazodone 50 mg tablet 50 mg PO BEDTIME PRN Insomnia 30 12/02/23 days #30 tabs trihexyphenidyl 2 mg tablet 2 mg PO QAM 30 days #30 tabs 12/02/23 ziprasidone HCl 20 mg capsule 20 mg PO BIDWM 30 days #60 caps 12/02/23 ziprasidone HCl 80 mg capsule 80 mg PO BIDWM 30 days #60 caps 12/02/23 clindamycin HCl 300 mg capsule 300 mg PO TID #30 caps 04/15/24 Allergies Allergy/AdvReac Type Severity Reaction Status Date / Time Penicillins [PENICILLINS] Allergy Severe HIVES Verified 04/14/24 08:18 sulfamethoxazole Allergy Severe DIARRHEA Verified 04/14/24 08:18 [From BACTRIM] trimethoprim [From BACTRIM] Allergy Severe DIARRHEA Verified 04/14/24 08:18 aripiprazole [From ABILIFY] Allergy Intermediate ATAXIA Verified 04/14/24 08:18 aspirin [ASPIRIN] Allergy Intermediate STOMACH Verified 04/14/24 08:18 CRAMPS benztropine [From COGENTIN] Allergy Intermediate CONFUSION, Verified 04/14/24 08:18 memory loss bupropion [BUPROPION] Allergy Intermediate DIZZINESS Verified 04/14/24 08:18 erythromycin base Allergy Intermediate GI UPSET Verified 04/14/24 08:18 [ERYTHROMYCIN BASE] ibuprofen [From MOTRIN] Allergy Intermediate STOMACH Verified 04/14/24 08:18 CRAMPS olanzapine [From ZYPREXA] Allergy Intermediate TONGUE Verified 04/14/24 08:18 MOVEMENTS perphenazine [From TRILAFON] Allergy Intermediate ARM AND Verified 04/13/24 11:19 LEG MOVEMENTS, FALL risperidone [From RISPERDAL] Allergy Intermediate TONGUE Verified 04/13/24 11:19 MOVEMENT milk Allergy Drowsy Verified 04/13/24 11:19 egg AdvReac Stomach Verified 04/13/24 11:19 Upset From INDERAL Allergy Intermediate WHEEZING Uncoded 03/12/22 08:56 Review of Systems Review of Systems: Yes all other systems are reviewed and are negative PMFSH Past Medical History Medical History Routine medical exam CKD (chronic kidney disease), stage IV Bipolar disorder Neck pain Murmur GERD (gastroesophageal reflux disease) Hypothyroidism Irritable bowel syndrome (IBS) Hyperlipidemia Anxiety and depression Dissociative identity disorder Surgical History Hx of colonoscopy History of total thyroidectomy Social History Social History Household Members: None Household Members Other:: roommate Housing: Apartment Are you a primary day care center director to a significant other at home: No Do you presently have visiting nurse or other home services: Yes (pt has VNA for only one day prior to admission.) Comment: aware of trip hazard Patient Tobacco Use Status: Former Tobacco user Quit Date: Pt quit over 25 years ago Tobacco use type: Cigarette Cigarette Packs Per Day: 1 Cigarettes Per Day: 20.0 Years Smoked: 20 e-Cigarette/Vaping Use: Never Used Second Hand Smoke Exposure: No Advance Directives: No Advance Directives Information Provided: No Do you have a plan to hurt others: No Plan service: No Sexual orientation: Did not discuss Physical Exam Vital Signs: Vital Signs: Last Vital Signs Temp 99.4 F 04/14/24 21:54 Pulse 98 04/15/24 00:09 Resp 20 04/15/24 00:09 BP 142/95 H 04/15/24 00:09 Pulse Ox 95 04/15/24 00:09 O2 Del Method Room Air 04/15/24 00:09 BMI result Body Mass Index 24.6 Appearance: Alert. Oriented X3. No acute distress. Eyes: PERRLA, No Nystagmus ENT: Pharynx normal. Oral Mucosa moist tender left lower 2nd molar with swelling of the gum and the cheek suggestive of abscess with cellulitis Neck: Normal inspection. Neck supple. CVS: Normal heart rate and rhythm. Pulses normal. Respiratory: No respiratory distress. Equal air entry bilateral, no wheezing/rales/rhonchi Abdomen: Soft and nontender. Bowel sounds are present, no mass palpable, no CVA tenderness Skin: Skin warm and dry. Normal skin color. Normal skin turgor. Extremities: No lower extremity edema. No calf tenderness Neuro: Oriented X 3. No motor deficit. No sensory deficit.No cerebellar signs , cranial nerves II-XII intact Medications Administered Discontinued Medications Generic Name Dose Route Start Last Admin Trade Name Freq PRN Reason Stop Dose Admin Clindamycin HCl 300 mg 04/14/24 22:43 04/15/24 00:28 Clindamycin Hcl 300 Mg Capsule PO 04/14/24 22:44 300 mg ONCE ONE Administration Lidocaine HCl 5 ml 04/14/24 22:42 04/15/24 00:28 Lidocaine Hcl 1 % Mpf 5 Ml Vial INFILTRATI 04/14/24 22:43 5 ml ONCE ONE Administration Medical Decision Making Medical Decision Making MDM Narrative: Patient with left lower molar dental abscess which was drained patient was able to open the mouth better also has cellulitis of the cheek will prescribe her clindamycin patient had stable labs done yesterday will discharge patient home with family Procedures Abscess I/D Site: oral Side (if applicable): left Local Anesthetic: lidocaine 1% Amount of anesthesia used (mL): 3 Technique: needle aspiration Amount of fluid expressed (mL): 1 Sent for culture/gram staining?: No Nerve Block Nerve Block 1: Local Anesthetic: lidocaine 1% Amount of anesthesia used (mL): 3 Side: left Intraoral Nerve Block: inferior alveolar Procedure Successful: Yes Patient Tolerated Procedure: well Complications: none Discharge Plan Discharge Clinical Impression: Dental abscess Patient Disposition: Home, Self-Care Instructions: Dental Abscess (ED) Additional Instructions: warm packs as advised Take antibiotic as prescribed Follow-up with your dentist Prescriptions: New clindamycin HCl 300 mg capsule 300 mg PO TID Qty: 30 0RF No Action acetaminophen 325 mg Tablet 650 mg PO Q6H PRN (Reason: Headache/Pain Mild Scale (1-3)) Qty: 0 0RF trazodone 50 mg Tablet 50 mg PO BEDTIME PRN (Reason: Insomnia) 30 Days Qty: 30 0RF famotidine 20 mg Tablet 20 mg PO DAILY 30 Days Qty: 30 0RF ziprasidone HCl 80 mg capsule 80 mg PO BIDWM 30 Days Qty: 60 0RF lamotrigine 200 mg tablet 200 mg PO DAILY 30 Days Qty: 30 0RF clonazepam 0.5 mg Tablet 0.25 mg PO TID PRN (Reason: Anxiety) 30 Days Qty: 45 0RF calcium carbonate-vitamin D3 600 mg-5 mcg (200 unit) Tablet 1 tab PO DAILY@1200 30 Days Qty: 30 0RF simvastatin 40 mg tablet 40 mg PO BEDTIME 30 Days Qty: 30 0RF lamotrigine 25 mg tablet 50 mg PO BID 30 Days Qty: 120 0RF ziprasidone HCl 20 mg Capsule 20 mg PO BIDWM 30 Days Qty: 60 0RF Rx Instructions: give with food (meal/snack) ascorbic acid (vitamin C) 500 mg Tablet 1,000 mg PO DAILY@1200 30 Days Qty: 30 0RF chlorpromazine 25 mg Tablet 50 mg PO DAILY 30 Days Qty: 60 0RF chlorpromazine 25 mg Tablet 75 mg PO BEDTIME 30 Days Qty: 90 0RF levothyroxine 125 mcg Tablet 125 mcg PO DAILY@0600 30 Days Qty: 30 0RF trihexyphenidyl 2 mg tablet 2 mg PO QAM 30 Days Qty: 30 0RF cholecalciferol (vitamin D3) 25 mcg (1,000 unit) Tablet 25 mcg PO DAILY@1200 30 Days Qty: 30 0RF yskfshbjkwsx-pqos-zvvpb acid 18-400 mg-mcg Tablet 1 tab PO DAILY@1200 30 Days Qty: 30 0RF Print Language: Persian
[2024-04-15 00:09] VITALS: BP 142/95; PULSE 98; RESP 20; O2SAT 95
[2024-04-15] MEDS: Clindamycin HCL 300 MG CAPSULE PO (00:28)
[2024-04-15] MEDS: Lidocaine HCl 1 % MPF 5 ML VIAL INFILTRATI (00:28)
[2024-04-15] MEDS: lamoTRIgine 25 MG TABLET PO (02:09)
[2024-04-15 02:36] VITALS: BP 142/95; PULSE 98; RESP 20; TEMP 36.6; O2SAT 95
--- NOTE | 2024-04-15 02:36 | PC.NURSE ---
PT STATES SHE LIVES AT HOME AND HAS [facility] NURSES TO ADMINISTER MEDS THROUGHOUT DAY. PT STATES SHE CANNOT GO HOME D/T HOUSE LOCK BEING BROKEN BY EMS. SISTER CALLED AT [phone] WHO IS ABLE TO TAKE PATIENT TO OWN HOUSE FOR THE NIGHT. PT CONCERNED SHE HAS NOT RECEIVED PM MEDS AND WILL NOT BE ABLE TO D/T NOT GOING HOME. PT GIVEN LAMICTAL PER JAN. PT REFUSED KLONIPIN STATING SHE HAS A SINGLE DOSE WITH SELF SHE CAN TAKE AND WISHES TO WAIT TIL HOME BEFORE TAKING. PT IS [facility] AMBULATORY WITH STEADY GAIT AT TIME OF DISCHARGE, SISTER AND PT BOTH VERBALIZE UNDERSTANDING D/C INSTRUCTIONS.
== END 2024-04-15 02:39 | disposition home or self-care (01) ==
PROVIDERS: Emergency Provider Internal Medicine; PCP Family Medicine
DX: K04.7 Periapical abscess without sinus (principal); R51.9 Headache, unspecified
CPT/HCPCS: 41800; 99283; 99284

== ENCOUNTER 2024-04-15 07:00 | Emergency (ER) | payer MEDICARE, MEDICAID, SELFPAY ==
--- NOTE | ~2024-04-15 | CT_ITS ---
CT SOFT TISSUE NECK WITHOUT CONTRAST CLINICAL INFORMATION: Left mandible infection into the neck. COMPARISON: Cervical spine CT 04/13/2024. TECHNIQUE: Helical imaging was performed in the axial plane with generation of coronal and sagittal reformatted images. This CT examination was performed using dose optimization techniques as appropriate, variously including the following: *Automated exposure control *Adjustment of mA and/or kV according to patient size (this includes techniques or standardized protocols for targeted exams where dose is matched to indication/reason for exam; i.e. extremities or head) *Use of iterative reconstruction technique FINDINGS: There is periapical lucency surrounding the roots of the left second mandibular premolar and the residual left mandibular molar that should be correlated with physical examination to exclude a periapical abscess given that there is extensive phlegmon and cellulitis within the left perimandibular soft tissues tracking into the left submandibular space, the submental space, and the superficial soft tissues of the infrahyoid neck. There is also myositis involving the platysma muscles bilaterally. Nondiagnostic assessment for soft tissue abscess given the lack of contrast. Fat planes within the floor of mouth are intact. There are a few punctate foci of soft tissue gas within the soft tissues adjacent to the left submandibular gland and within the left muscles of mastication. This could reflect intravenous gas from venous line placement or gas from infection. Thyroidectomy changes. No definite superficial mucosal space lesions with assessment limited on this noncontrast study. The partially imaged orbital soft tissues and the parotid glands are unremarkable. The paranasal sinuses are clear. There is a moderate right mastoid effusion. There is multilevel cervical spondylosis. Imaged upper lungs are clear. Imaged upper mediastinum is unremarkable. CT/CT soft tissue neck wo IV con IMPRESSION: There is periapical lucency surrounding the roots of the left second mandibular premolar and the residual left mandibular molar that should be correlated with physical examination to exclude a periapical abscess given that there is extensive phlegmon and cellulitis within the left perimandibular soft tissues tracking into the left submandibular space, the submental space, and the superficial soft tissues of the infrahyoid neck. There is also myositis involving the platysma muscles bilaterally. Nondiagnostic assessment for soft tissue abscess given the lack of contrast. There are a few punctate foci of soft tissue gas within the soft tissues adjacent to the left submandibular gland and within the left muscles of mastication. This could reflect intravenous gas from venous line placement or gas from infection.
--- NOTE | 2024-04-15 07:05 | ED_ITS ---
HPI - General Adult General Chief complaint: Dental/Oral Stated complaint: FACIAL DROOP/FACIAL PAIN Time Seen by Provider: 04/15/24 07:01 History of Present Illness HPI narrative: Patient is a 64-year-old woman with a history of significant psychiatric and medical problems. 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 Medically she has a history of chronic kidney disease, hypothyroidism and hyperlipidemia. Over the past week the patient has had dental pain on the left jaw. She came to the emergency room here yesterday for this complaint and was felt to have a dental abscess related to her left lower 2nd molar. She had a needle aspiration of the area after an inferior alveolar block. 1 mL of pus was aspirated. The patient was started on clindamycin and discharge. During the night the patient has had worsening swelling and discomfort of the left lower jaw extending under the jaw as well. She also feels that it is now painful to open her mouth. No definite fever. Because of these worsening symptoms she called an ambulance and was brought to the hospital. Related Data Previous Rx's ?Medication ?Instructions ?Recorded acetaminophen 325 mg tablet 650 mg (2 x 325 mg) PO Q6H PRN 12/02/23 Headache/Pain Mild Scale (1-3) #0 tabs ascorbic acid (vitamin C) 500 mg 1,000 mg (2 x 500 mg) PO 12/02/23 tablet DAILY@1200 30 days #30 tabs calcium carbonate 600 mg-vitamin 1 tab PO DAILY@1200 30 days #30 12/02/23 D3 5 mcg (200 unit) tablet tabs chlorpromazine 25 mg tablet 50 mg (2 x 25 mg) PO DAILY 30 days 12/02/23 #60 tabs chlorpromazine 25 mg tablet 75 mg (3 x 25 mg) PO BEDTIME 30 12/02/23 days #90 tabs cholecalciferol (vitamin D3) 25 25 mcg PO DAILY@1200 30 days #30 12/02/23 mcg (1,000 unit) tablet tabs clonazepam 0.5 mg tablet 0.25 mg (1/2 x 0.5 mg) PO TID PRN 12/02/23 Anxiety 30 days #45 tabs famotidine 20 mg tablet 20 mg PO DAILY 30 days #30 tabs 12/02/23 lamotrigine 200 mg tablet 200 mg PO DAILY 30 days #30 tabs 12/02/23 lamotrigine 25 mg tablet 50 mg (2 x 25 mg) PO BID 30 days 12/02/23 #120 tabs levothyroxine 125 mcg tablet 125 mcg PO DAILY@0600 30 days #30 12/02/23 tabs multivitamin-ferrous 1 tab PO DAILY@1200 30 days #30 12/02/23 fumarate-folic acid 18 mg-400 mcg tabs tablet simvastatin 40 mg tablet 40 mg PO BEDTIME 30 days #30 tabs 12/02/23 trazodone 50 mg tablet 50 mg PO BEDTIME PRN Insomnia 30 12/02/23 days #30 tabs trihexyphenidyl 2 mg tablet 2 mg PO QAM 30 days #30 tabs 12/02/23 ziprasidone HCl 20 mg capsule 20 mg PO BIDWM 30 days #60 caps 12/02/23 ziprasidone HCl 80 mg capsule 80 mg PO BIDWM 30 days #60 caps 12/02/23 clindamycin HCl 300 mg capsule 300 mg PO TID #30 caps 04/15/24 Allergies Allergy/AdvReac Type Severity Reaction Status Date / Time Penicillins [PENICILLINS] Allergy Severe HIVES Verified 04/15/24 07:14 sulfamethoxazole Allergy Severe DIARRHEA Verified 04/15/24 07:14 [From BACTRIM] trimethoprim [From BACTRIM] Allergy Severe DIARRHEA Verified 04/15/24 07:14 aripiprazole [From ABILIFY] Allergy Intermediate ATAXIA Verified 04/15/24 07:14 aspirin [ASPIRIN] Allergy Intermediate STOMACH Verified 04/15/24 07:14 CRAMPS benztropine [From COGENTIN] Allergy Intermediate CONFUSION, Verified 04/15/24 07:14 memory loss bupropion [BUPROPION] Allergy Intermediate DIZZINESS Verified 04/15/24 07:14 erythromycin base Allergy Intermediate GI UPSET Verified 04/15/24 07:14 [ERYTHROMYCIN BASE] ibuprofen [From MOTRIN] Allergy Intermediate STOMACH Verified 04/15/24 07:14 CRAMPS olanzapine [From ZYPREXA] Allergy Intermediate TONGUE Verified 04/15/24 07:14 MOVEMENTS perphenazine [From TRILAFON] Allergy Intermediate ARM AND Verified 04/15/24 07:14 LEG MOVEMENTS, FALL risperidone [From RISPERDAL] Allergy Intermediate TONGUE Verified 04/15/24 07:14 MOVEMENT milk Allergy Drowsy Verified 04/15/24 07:14 egg AdvReac Stomach Verified 04/15/24 07:14 Upset From INDERAL Allergy Intermediate WHEEZING Uncoded 04/15/24 07:14 Review of Systems 2 Review of Systems: Yes all other systems are reviewed and are negative [facility] Past Medical History Medical History Routine medical exam CKD (chronic kidney disease), stage IV Bipolar disorder Neck pain Murmur GERD (gastroesophageal reflux disease) Hypothyroidism Irritable bowel syndrome (IBS) Hyperlipidemia Anxiety and depression Dissociative identity disorder Surgical History Hx of colonoscopy History of total thyroidectomy Social History Social History Household Members: None Household Members Other:: roommate Housing: Apartment Are you a primary child care giver to a significant other at home: No Do you presently have visiting nurse or other home services: Yes (pt has VNA for only one day prior to admission.) Comment: aware of trip hazard Patient Tobacco Use Status: Former Tobacco user Quit Date: Pt quit over 25 years ago Tobacco use type: Cigarette Cigarette Packs Per Day: 1 Cigarettes Per Day: 20.0 Years Smoked: 20 e-Cigarette/Vaping Use: Never Used Second Hand Smoke Exposure: No Advance Directives: No Advance Directives Information Provided: Yes Do you have a plan to hurt others: No Plan service: No Sexual orientation: Did not discuss Physical Exam ED Vital Signs: Vital Signs - 24 hr 04/15/24 07:26 04/15/24 09:55 Temperature 97.5 F 98.5 F Pulse Rate 92 82 Respiratory Rate 18 6 L Blood Pressure 138/65 130/69 Pulse Oximetry 94 99 Oxygen Delivery Method Room Air Room Air BMI result Body Mass Index 23.5 Const Other: The patient is an older woman who was awake and alert, pleasant and cooperative. She has obvious left facial swelling but does not seem in distress otherwise. No shortness of breath. She does not seem toxic. HENMT Other: There is swelling to the left lower face over the left mandible extending to below the left mandible as well. The skin is tender but without erythema. On intraoral exam the mucosa and gingiva opposite the left mandibular molars is swollen and tender without definite fluctuance. She has discomfort with opening her jaw but her trismus is not severe. Eyes Other: Pupils are round equal, conjunctivae are clear Neck Other: There is swelling and tenderness that extends from the left jaw to the left under side of the jaw in the region of the left submandibular glands. No distinct adenopathy. Resp Effort & Inspection: normal respiratory effort Auscultation: clear to auscultation bilaterally Cardio Rate: regular rate Rhythm: regular rhythm Heart sounds: S1 normal heart sound present and S2 normal heart sound present GI Other: Abdomen is soft and nontender Skin Other: The skin over the left jaw and the left upper neck is swollen but without erythema. Neuro Other: The patient is awake and alert with a normal mental status. Demeanor is pleasant. There is some left-sided facial swelling but she does not really have facial weakness. She is otherwise neurologically intact. Extrem Other: No peripheral edema. Medications Administered Discontinued Medications Generic Name Dose Route Start Last Admin Trade Name Freq PRN Reason Stop Dose Admin Sodium Chloride 1,000 mls @ 999 mls/hr 04/15/24 07:15 04/15/24 09:04 Ns IV 04/15/24 08:15 Infused .Q1H1M NAT Infusion Clindamycin Phosphate 900 mg in 50 mls @ 50 mls/hr 04/15/24 07:13 04/15/24 09:07 Cleocin IV 04/15/24 08:12 Infused ONCE ONE Infusion Medical Decision Making Medical Decision Making [facility] Narrative: The patient is a 64-year-old female with a history of significant renal impairment and significant psychiatric issues who presents with several days of pain on her right jaw that seems to be secondary to a dental infection. She was here last night and had some drainage of one mL of pus by the ER doctor. She was discharged on oral clindamycin. She returns today with much more significant swelling over the jaw and into the left neck with some trismus. She is afebrile and does [place] [address] and is CRP of 9.77 mg/dL. She has a baseline chronic renal insufficiency with a creatinine today of 1.93. The patient was given IV fluids and IV clindamycin [address] scan without contrast (because of the patient's renal function) shows a significant phlegmon and cellulitis around the left mandible and into the left neck. It was my impression that given the extent of the infection that the patient would require hospitalization for management of this infection. This hospital does not have dental or oral maxillofacial specialties and therefore this hospital would not be inappropriate Hospital for this patient. I contacted the [place] transfer hotline and the patient has been accepted at [facility] in [place] going to the emergency room. Patient's primary care doctor, Dr. Lino Parker, or [phone], is very attentive to the patient's care and would appreciate any contact and would be happy to answer any questions. Lab Data 04/15/24 07:50 04/15/24 07:50 Labs: Lab Results 04/15/24 Range/Units 07:50 WBC 11.0 H (4.8-10.8) X10*3/uL RBC 4.09 L (4.20-5.50) X10*6/uL Hgb 12.7 (12.0-16.0) g/dl Hct 36.7 L (37.0-47.0) % MCV 89.7 (80.0-98.0) fL MCH 31.1 (27.0-33.0) pg MCHC 34.6 (31.0-35.0) g/dl RDW 12.3 (11.0-16.0) % Plt Count 208 D (160-400) X10*3/uL MPV 8.6 L (9.4-12.3) fL Immature Gran % (Auto) 0.4 (0.0-0.4) % Neut % (Auto) 81.2 H (45-73) % Lymph % (Auto) 8.0 L (20-40) % Jerome % (Auto) 10.2 (2-11) % Eos % (Auto) 0.0 (0-4) % Baso % (Auto) 0.2 (0-2) % Lymph # (Auto) 0.9 L (1.2-4.9) X10*3/uL Jerome # (Auto) 1.1 (0.1-1.2) X10*3/uL Eos # (Auto) 0.0 (0.0-0.4) X10*3/uL Baso # (Auto) 0.0 (0.0-0.2) X10*3/uL Abs Immat Gran (auto) 0.04 H (0.00-0.03) X10*3/uL Absolute Neuts (auto) 9.0 H (2.0-8.3) x10*3/uL Absolute Nucleated RBC 0.000 (0.0-0.012) X10*3/uL Nucleated RBC % (auto) 0.0 (0.0-0.2) /100WBC Sodium 142 (135-145) mmol/L Potassium 4.1 (3.3-5.1) mmol/L Chloride 102 (96-108) mmol/L Carbon Dioxide 23 (22-29) mmol/L Anion Gap 21 H (12-20) BUN 25 H (9-16) mg/dL Creatinine 1.93 H (0.5-1.4) mg/dL Estim Creat Clear Calc 25.8 Estimated GFR 26 Random Glucose 97 (60-115) mg/dL Calcium 10.3 H (8.4-10.2) mg/dL Magnesium 2.0 (1.6-2.6) mg/dL Total Bilirubin 0.9 (0.0-1.0) mg/dL Direct Bilirubin 0.3 (0.0-0.5) mg/dL AST 27 (5-31) U/L ALT 29 (0-31) U/L Alkaline Phosphatase 44 (39-117) U/L C-Reactive Protein 9.77 H (< or = 0.50) mg/dL Total Protein 8.1 H (6.5-8.0) g/dL Albumin 4.8 (3.5-5.0) g/dL Discharge Plan Discharge Clinical Impression: Dental infection, Facial cellulitis, Cellulitis of neck Patient Disposition: Xfer [facility] Hospital Transfer Details: Emergency room to emergency room, [facility] in [place] Prescriptions: No Action acetaminophen 325 mg Tablet 650 mg PO Q6H PRN (Reason: Headache/Pain Mild Scale (1-3)) Qty: 0 0RF trazodone 50 mg Tablet 50 mg PO BEDTIME PRN (Reason: Insomnia) 30 Days Qty: 30 0RF famotidine 20 mg Tablet 20 mg PO DAILY 30 Days Qty: 30 0RF ziprasidone HCl 80 mg capsule 80 mg PO BIDWM 30 Days Qty: 60 0RF lamotrigine 200 mg tablet 200 mg PO DAILY 30 Days Qty: 30 0RF clonazepam 0.5 mg Tablet 0.25 mg PO TID PRN (Reason: Anxiety) 30 Days Qty: 45 0RF calcium carbonate-vitamin D3 600 mg-5 mcg (200 unit) Tablet 1 tab PO DAILY@1200 30 Days Qty: 30 0RF simvastatin 40 mg tablet 40 mg PO BEDTIME 30 Days Qty: 30 0RF lamotrigine 25 mg tablet 50 mg PO BID 30 Days Qty: 120 0RF ziprasidone HCl 20 mg Capsule 20 mg PO BIDWM 30 Days Qty: 60 0RF Rx Instructions: give with food (meal/snack) ascorbic acid (vitamin C) 500 mg Tablet 1,000 mg PO DAILY@1200 30 Days Qty: 30 0RF chlorpromazine 25 mg Tablet 50 mg PO DAILY 30 Days Qty: 60 0RF chlorpromazine 25 mg Tablet 75 mg PO BEDTIME 30 Days Qty: 90 0RF levothyroxine 125 mcg Tablet 125 mcg PO DAILY@0600 30 Days Qty: 30 0RF trihexyphenidyl 2 mg tablet 2 mg PO QAM 30 Days Qty: 30 0RF cholecalciferol (vitamin D3) 25 mcg (1,000 unit) Tablet 25 mcg PO DAILY@1200 30 Days Qty: 30 0RF bumfxshurkiq-pdtk-fqaac acid 18-400 mg-mcg Tablet 1 tab PO DAILY@1200 30 Days Qty: 30 0RF clindamycin HCl 300 mg capsule 300 mg PO TID Qty: 30 0RF Print Language: Cook Islander
[2024-04-15 07:13] VITALS: BP 164/98; PULSE 116; O2SAT 97; BMI 23.5
--- NOTE | 2024-04-15 07:20 | PC.NURSE ---
a&ox4. vss and up to date. pt biba from home d/t left sided facial numbness/tingling/drooping. pt was just in [facility] last night having abscess on left side of tooth drained. pt received lidocaine for drainage to be complete and has had numbness since leaving. 20gIV placed in the left AC - labs obtained/sent to lab. IVF administered per provider order. waiting on abx from pharmacy - will administer when able. no sob/wob noted. respirations even and unlabored. plan of care ongoing.
[2024-04-15 07:26] VITALS: BP 138/65; PULSE 92; RESP 18; TEMP 36.4; O2SAT 94
[2024-04-15] MEDS: 0.9 % Sodium Chloride 1,000 ML 999 ML IV (07:51)
[2024-04-15 07:58] LABS: MANUAL DIFF FLAG NO
[2024-04-15 08:00] LABS: Basophils Percent Auto 0.2 % (0-2); Hematocrit 36.7 % (37.0-47.0); Hemoglobin 12.7 g/dl (12.0-16.0); Imm Gran Abs Auto 0.04 X10*3/uL (0.00-0.03); Imm Gran Pct Auto 0.4 % (0.0-0.4); Lymphocytes Absolute Auto 0.9 X10*3/uL (1.2-4.9); Mean Corpuscular HGB Conc 34.6 g/dl (31.0-35.0); Mean Corpuscular Hemoglobin 31.1 pg (27.0-33.0); Mean Corpuscular Volume 89.7 fL (80.0-98.0); Mean Platelet Volume 8.6 fL (9.4-12.3); Monocytes Absolute Auto 1.1 X10*3/uL (0.1-1.2); Monocytes Percent Auto 10.2 % (2-11); Neutrophils Percent Auto 81.2 % (45-73); Platelet Count 208 X10*3/uL (160-400); Red Blood Count 4.09 X10*6/uL (4.20-5.50); Red Cell Distribution Width 12.3 % (11.0-16.0)
[2024-04-15] MEDS: Clindamycin Phosphate/D5W 900 MG/50 ML PIGGYBACK 50 MG IV (08:06)
--- NOTE | 2024-04-15 08:10 | PC.NURSE ---
abx delivered/administered per provider order.
[2024-04-15 08:19] LABS: Alanine Aminotransferase 29 U/L (0-31); Albumin Level 4.8 g/dL (3.5-5.0); Alkaline Phosphatase 44 U/L (39-117); Anion Gap 21 (12-20); Aspartate Amino Transferase 27 U/L (5-31); Bilirubin Direct 0.3 mg/dL (0.0-0.5); Bilirubin Total 0.9 mg/dL (0.0-1.0); Blood Urea Nitrogen 25 mg/dL (9-16); C Reactive Protein 9.77 mg/dL (< or = 0.50); Calcium 10.3 mg/dL (8.4-10.2); Carbon Dioxide 23 mmol/L (22-29); Chloride 102 mmol/L (96-108); Creatinine Clr Calc Pharmacy 25.8; Estimated Glomerular Filt Rate 26; Glucose Random 97 mg/dL (60-115); Potassium 4.1 mmol/L (3.3-5.1); Sodium 142 mmol/L (135-145); Total Protein 8.1 g/dL (6.5-8.0)
--- NOTE | 2024-04-15 09:04 | PC.NURSE ---
pt returned from CT at this time.
[2024-04-15 09:55] VITALS: BP 130/69; PULSE 82; RESP 16; TEMP 36.9; O2SAT 99
--- NOTE | 2024-04-15 10:56 | PC.NURSE ---
pt aware of plan of care in regards to being transferred to [facility] so she can be seen by an ENT specialist. pt continues to rest comfortably in no apparent distress. no sob/wob noted. respirations even and unlabored. family bedside for support. plan of care ongoing.
--- NOTE | 2024-04-15 12:19 | PC.NURSE ---
report given to renetta PARK at this time.
--- NOTE | 2024-04-15 12:23 | PC.NURSE ---
report given to BATSHEVA Valenzuela in the ED [place] at this time.
[2024-04-15 12:24] VITALS: BP 130/69; PULSE 82; RESP 16; TEMP 36.9; O2SAT 99
== END 2024-04-15 12:25 | disposition short-term general hospital (02) ==
PROVIDERS: Emergency Provider Emergency Medicine
DX: L03.211 Cellulitis of face (principal); L03.221 Cellulitis of neck; K04.7 Periapical abscess without sinus; N18.4 Chronic kidney disease, stage 4 (severe)
CPT/HCPCS: 36415; 70490; 80048; 80076; 83735; 85025; 86140; 96361; 96374; 99285; J0736

== ENCOUNTER 2024-04-17 05:13 | Emergency (ER) | payer MEDICARE, MEDICAID, SELFPAY ==
[2024-04-17 05:31] VITALS: BP 156/83; PULSE 80; RESP 17; TEMP 36.6; O2SAT 99
[2024-04-17 05:44] VITALS: BP 146/73; PULSE 102; O2SAT 99; BMI 23.0
--- NOTE | 2024-04-17 07:05 | ED.GENADULT ---
HPI - General Adult General Chief complaint: General Medical Stated complaint: LEST SIDED FACIAL PAIN AFTER EXTRACTIONS Time Seen by Provider: 04/17/24 06:44 Source: patient Mode of arrival: ambulatory Limitations: no limitations History of Present Illness ED Provider: Alice STEELE HPI narrative: This is a 64-year-old female history of bipolar, PTSD, personality disorder, schizoaffective disorder, CKD, hypothyroidism, hyperlipidemia presenting to the emergency department with complaints of left-sided facial swelling, pain, left lower 2nd molar pain going on for the past few days worsening ( reason she came in today is due to worsening pain and swelling). Patient reports she was seen here multiple times over the past few days, a few days ago they drained an abscess put her on an antibiotic which she states shes taking, she repors she came back due to worsening sx and was then transfered to a hospital in [place] she reports after that she had two tooth extracted yesterday. Reports pain w/ opening mouth worse than before and slight changes in voice. Denies nausea, vomiting, abd pain, drooling, headache, vision changes, dizziness, weakness, cp, sob Related Data Previous Rx's ?Medication ?Instructions ?Recorded acetaminophen 325 mg tablet 650 mg (2 x 325 mg) PO Q6H PRN 12/02/23 Headache/Pain Mild Scale (1-3) #0 tabs ascorbic acid (vitamin C) 500 mg 1,000 mg (2 x 500 mg) PO 12/02/23 tablet DAILY@1200 30 days #30 tabs calcium carbonate 600 mg-vitamin 1 tab PO DAILY@1200 30 days #30 12/02/23 D3 5 mcg (200 unit) tablet tabs chlorpromazine 25 mg tablet 50 mg (2 x 25 mg) PO DAILY 30 days 12/02/23 #60 tabs chlorpromazine 25 mg tablet 75 mg (3 x 25 mg) PO BEDTIME 30 12/02/23 days #90 tabs cholecalciferol (vitamin D3) 25 25 mcg PO DAILY@1200 30 days #30 12/02/23 mcg (1,000 unit) tablet tabs clonazepam 0.5 mg tablet 0.25 mg (1/2 x 0.5 mg) PO TID PRN 12/02/23 Anxiety 30 days #45 tabs famotidine 20 mg tablet 20 mg PO DAILY 30 days #30 tabs 12/02/23 lamotrigine 200 mg tablet 200 mg PO DAILY 30 days #30 tabs 12/02/23 lamotrigine 25 mg tablet 50 mg (2 x 25 mg) PO BID 30 days 12/02/23 #120 tabs levothyroxine 125 mcg tablet 125 mcg PO DAILY@0600 30 days #30 12/02/23 tabs multivitamin-ferrous 1 tab PO DAILY@1200 30 days #30 12/02/23 fumarate-folic acid 18 mg-400 mcg tabs tablet simvastatin 40 mg tablet 40 mg PO BEDTIME 30 days #30 tabs 12/02/23 trazodone 50 mg tablet 50 mg PO BEDTIME PRN Insomnia 30 12/02/23 days #30 tabs trihexyphenidyl 2 mg tablet 2 mg PO QAM 30 days #30 tabs 12/02/23 ziprasidone HCl 20 mg capsule 20 mg PO BIDWM 30 days #60 caps 12/02/23 ziprasidone HCl 80 mg capsule 80 mg PO BIDWM 30 days #60 caps 12/02/23 clindamycin HCl 300 mg capsule 300 mg PO TID #30 caps 04/15/24 Allergies Allergy/AdvReac Type Severity Reaction Status Date / Time Penicillins [PENICILLINS] Allergy Severe HIVES Verified 04/17/24 05:48 sulfamethoxazole Allergy Severe DIARRHEA Verified 04/17/24 05:48 [From BACTRIM] trimethoprim [From BACTRIM] Allergy Severe DIARRHEA Verified 04/17/24 05:48 aripiprazole [From ABILIFY] Allergy Intermediate ATAXIA Verified 04/17/24 05:48 aspirin [ASPIRIN] Allergy Intermediate STOMACH Verified 04/17/24 05:48 CRAMPS benztropine [From COGENTIN] Allergy Intermediate CONFUSION, Verified 04/17/24 05:48 memory loss bupropion [BUPROPION] Allergy Intermediate DIZZINESS Verified 04/17/24 05:48 erythromycin base Allergy Intermediate GI UPSET Verified 04/17/24 05:48 [ERYTHROMYCIN BASE] ibuprofen [From MOTRIN] Allergy Intermediate STOMACH Verified 04/17/24 05:48 CRAMPS olanzapine [From ZYPREXA] Allergy Intermediate TONGUE Verified 04/17/24 05:48 MOVEMENTS perphenazine [From TRILAFON] Allergy Intermediate ARM AND Verified 04/15/24 07:14 LEG MOVEMENTS, FALL risperidone [From RISPERDAL] Allergy Intermediate TONGUE Verified 04/15/24 07:14 MOVEMENT milk Allergy Drowsy Verified 04/15/24 07:14 egg AdvReac Stomach Verified 04/15/24 07:14 Upset From INDERAL Allergy Intermediate WHEEZING Uncoded 04/15/24 07:14 Review of Systems Review of Systems: Yes all other systems are reviewed and are negative [facility] Past Medical History Attestation statement: The following information was validated with the patient. Source: old records reviewed and nursing notes reviewed Medical History Routine medical exam CKD (chronic kidney disease), stage IV Bipolar disorder Neck pain Murmur GERD (gastroesophageal reflux disease) Hypothyroidism Irritable bowel syndrome (IBS) Hyperlipidemia Anxiety and depression Dissociative identity disorder Surgical History Hx of colonoscopy History of total thyroidectomy Social History Social History Household Members: None Household Members Other:: roommate Housing: Apartment Are you a primary long term care social worker to a significant other at home: No Do you presently have visiting nurse or other home services: Yes (pt has VNA for only one day prior to admission.) Comment: aware of trip hazard Patient Tobacco Use Status: Former Tobacco user Quit Date: Pt quit over 25 years ago Tobacco use type: Cigarette Cigarette Packs Per Day: 1 Cigarettes Per Day: 20.0 Years Smoked: 20 Smoked in Last 30 Days: No e-Cigarette/Vaping Use: Never Used Second Hand Smoke Exposure: No Advance Directives: No Advance Directives Information Provided: No Do you have a plan to hurt others: No Plan service: No Sexual orientation: Did not discuss Physical Exam ED Vital Signs: Vital Signs - 24 hr 04/17/24 05:31 04/17/24 08:29 Temperature 97.8 F Pulse Rate 80 83 Respiratory Rate 17 16 Blood Pressure 156/83 H 145/81 H Pulse Oximetry 99 98 Oxygen Delivery Method Room Air Room Air BMI result Body Mass Index 23.0 vss Appearance: Alert.? Oriented X3.? No acute distress.? Head: Normocephalic, atraumatic, no step-offs or deformities Eyes: Pupils equal, round and reactive to light.? ENT: Normal pharynx, uvula midline, + swelling to the left lower face over l mandible and extending below the mandible and into the neck, area TTP no overlying erythema. + left lower mandible region w/ two sites where extraction likely occurred w/ minimal swelling and significant TTP no abscess noted, no active bleeing. Moderate trismus. No abnormalities to hard or soft palate. CVS: Normal heart rate and rhythm.? Pulses normal.? Respiratory: No respiratory distress.? Breath sounds normal.? Abdomen: Soft and nontender.? Skin: Skin warm and dry.? Normal skin color.? Normal skin turgor.? Extremities: No lower extremity edema.? No calf ttp. 5/5 strength to bilateral upper and lower extremities Back: No midline tenderness, no C-spine tenderness, full range of motion, no CVA tenderness bilaterally Neuro: Oriented X 3.? No motor deficit.? No sensory deficit. CN 2-12 intact Course Reevaluation(s) Reevaluation #1: Dr. Zendejas who initially did the extraction reports she would expect the swelling to go down. Patient should be seen by [facility] or ENT . Patient should be transferred to see [facility] and for higher level of care. Time: 08:54 Reevaluation #2: Patient should be transferred to [facility] via EMS where patient had procedure done and is now having worsening pain and swelling. Dr. Zendejas from [facility] tells me she would like patient seen by [facility]. Patient aware of plan. Time: 09:05 Reevaluation #3: Dr. Robin [place] [facility] call [phone] for expect. Time: 09:04 Medications Administered Discontinued Medications Generic Name Dose Route Start Last Admin Trade Name Freq PRN Reason Stop Dose Admin Sodium Chloride 1,000 mls @ 999 mls/hr 04/17/24 08:15 04/17/24 09:19 Ns IV 04/17/24 09:15 999 mls/hr .Q1H1M [facility] Administration Medical Decision Making Medical Decision Making [facility] Narrative: [id number] 64-year-old female presents with complaints of tooth pain status post tooth extraction that occurred ago. Physical examNormal pharynx, uvula midline, + swelling to the left lower face over l mandible and extending below the mandible and into the neck, area TTP no overlying erythema. + left lower mandible region w/ two sites where extraction likely occurred w/ minimal swelling and significant TTP no abscess noted, no active bleeing. Moderate trismus. No abnormalities to hard or soft palate. History and physical exam consistent with likely developing abscess/dental infection and possible infection tracking into the neck vs normal healing s/p extraction, no active abscess at this time, unlikely acute threat to airway, acute respiratory distress, ludwigs angina Plan- basic labs Differential Diagnosis Differential Diagnoses: The differential diagnosis associated with the presentation includes History and physical exam consistent with likely developing abscess/dental infection and possible infection tracking into the neck vs normal healing s/p extraction, no active abscess at this time, unlikely acute threat to airway, acute respiratory distress, ludwigs angina Admission/Observation Consideration of admission/observation: Escalation of care including admission/observation considered Lab Data MDM Lab Attestation statement: I reviewed the patient's lab results. 04/17/24 09:17 04/17/24 07:41 Labs: Lab Results 04/17/24 04/17/24 04/17/24 Range/Units 07:41 08:41 08:43 WBC (4.8-10.8) X10*3/uL RBC (4.20-5.50) X10*6/uL Hgb (12.0-16.0) g/dl Hct (37.0-47.0) % MCV (80.0-98.0) fL MCH (27.0-33.0) pg MCHC (31.0-35.0) g/dl RDW (11.0-16.0) % Plt Count (160-400) X10*3/uL MPV (9.4-12.3) fL Immature Gran % (Auto) (0.0-0.4) % Neut % (Auto) (45-73) % Lymph % (Auto) (20-40) % [place] % (Auto) (2-11) % Eos % (Auto) (0-4) % Baso % (Auto) (0-2) % Lymph # (Auto) (1.2-4.9) X10*3/uL [place] # (Auto) (0.1-1.2) X10*3/uL Eos # (Auto) (0.0-0.4) X10*3/uL Baso # (Auto) (0.0-0.2) X10*3/uL Abs Immat Gran (auto) (0.00-0.03) X10*3/uL Absolute Neuts (auto) (2.0-8.3) x10*3/uL Absolute Nucleated RBC (0.0-0.012) X10*3/uL Nucleated RBC % (auto) (0.0-0.2) /100WBC ESR 65 H (0-20) MM/HR Sodium 144 (135-145) mmol/L Potassium 4.2 (3.3-5.1) mmol/L Chloride 110 H (96-108) mmol/L Carbon Dioxide 20 L (22-29) mmol/L Anion Gap 18 (12-20) BUN 21 H (9-16) mg/dL Creatinine 1.61 H (0.5-1.4) mg/dL Estim Creat Clear Calc 28.4 Estimated GFR 32 Random Glucose 93 (60-115) mg/dL Lactic Acid 0.9 (0.5-2.0) mmol/L Calcium 9.7 (8.4-10.2) mg/dL Magnesium 2.1 (1.6-2.6) mg/dL Total Bilirubin 0.5 (0.0-1.0) mg/dL AST 24 (5-31) U/L ALT 23 (0-31) U/L Alkaline Phosphatase 42 (39-117) U/L C-Reactive Protein 4.25 H (< or = 0.50) mg/dL Total Protein 7.5 (6.5-8.0) g/dL Albumin 4.5 (3.5-5.0) g/dL 04/17/24 Range/Units 09:17 WBC 5.7 (4.8-10.8) X10*3/uL RBC 3.77 L (4.20-5.50) X10*6/uL Hgb 11.7 L (12.0-16.0) g/dl Hct 34.1 L (37.0-47.0) % MCV 90.5 (80.0-98.0) fL MCH 31.0 (27.0-33.0) pg MCHC 34.3 (31.0-35.0) g/dl RDW 12.1 (11.0-16.0) % Plt Count 214 (160-400) X10*3/uL MPV 8.5 L (9.4-12.3) fL Immature Gran % (Auto) 0.2 (0.0-0.4) % Neut % (Auto) 80.5 H (45-73) % Lymph % (Auto) 12.1 L (20-40) % [place] % (Auto) 7.0 (2-11) % Eos % (Auto) 0.0 (0-4) % Baso % (Auto) 0.2 (0-2) % Lymph # (Auto) 0.7 L (1.2-4.9) X10*3/uL [place] # (Auto) 0.4 (0.1-1.2) X10*3/uL Eos # (Auto) 0.0 (0.0-0.4) X10*3/uL Baso # (Auto) 0.0 (0.0-0.2) X10*3/uL Abs Immat Gran (auto) 0.01 (0.00-0.03) X10*3/uL Absolute Neuts (auto) 4.6 (2.0-8.3) x10*3/uL Absolute Nucleated RBC 0.000 (0.0-0.012) X10*3/uL Nucleated RBC % (auto) 0.0 (0.0-0.2) /100WBC ESR (0-20) MM/HR Sodium (135-145) mmol/L Potassium (3.3-5.1) mmol/L Chloride (96-108) mmol/L Carbon Dioxide (22-29) mmol/L Anion Gap (12-20) BUN (9-16) mg/dL Creatinine (0.5-1.4) mg/dL Estim Creat Clear Calc Estimated GFR Random Glucose (60-115) mg/dL Lactic Acid (0.5-2.0) mmol/L Calcium (8.4-10.2) mg/dL Magnesium (1.6-2.6) mg/dL Total Bilirubin (0.0-1.0) mg/dL AST (5-31) U/L ALT (0-31) U/L Alkaline Phosphatase (39-117) U/L C-Reactive Protein (< or = 0.50) mg/dL Total Protein (6.5-8.0) g/dL Albumin (3.5-5.0) g/dL Independent Interpretation Interpretation: CT on 04/15/2023 - CT/CT soft tissue neck wo IV con IMPRESSION: There is periapical lucency surrounding the roots of the left second mandibular premolar and the residual left mandibular molar that should be correlated with physical examination to exclude a periapical abscess given that there is extensive phlegmon and cellulitis within the left perimandibular soft tissues tracking into the left submandibular space, the submental space, and the superficial soft tissues of the infrahyoid neck. There is also myositis involving the platysma muscles bilaterally. Nondiagnostic assessment for soft tissue abscess given the lack of contrast. There are a few punctate foci of soft tissue gas within the soft tissues adjacent to the left submandibular gland and within the left muscles of mastication. This could reflect intravenous gas from venous line placement or gas from infection. Radiology Impression Discussion of test interpretation with radiology: I have reviewed the radiologist's reading. Chronic Conditions Patient?s care impacted by: Other (CKD, bipolar, ptsd, personality d/o ) Social Determinants Patient?s care significantly limited by Social Determinants of Health including: Other Social Determinant of Health Critical Care Time Critical Care Time Critical Care Time: Yes Total Critical Care Time: 45 Attestation: I attest to this time spent taking care of the patient, obtaining history, physical, reviewing labs, imaging, speaking to my attending, speaking to specialist. Discharge Plan Discharge Clinical Impression: Swelling of left side of face, History of tooth extraction, Post-op pain Patient Disposition: [facility] Hospital Transfer Details: [facility] Dr. Robin ED --> ED Prescriptions: No Action acetaminophen 325 mg Tablet 650 mg PO Q6H PRN (Reason: Headache/Pain Mild Scale (1-3)) Qty: 0 0RF trazodone 50 mg Tablet 50 mg PO BEDTIME PRN (Reason: Insomnia) 30 Days Qty: 30 0RF famotidine 20 mg Tablet 20 mg PO DAILY 30 Days Qty: 30 0RF ziprasidone HCl 80 mg capsule 80 mg PO BIDWM 30 Days Qty: 60 0RF lamotrigine 200 mg tablet 200 mg PO DAILY 30 Days Qty: 30 0RF clonazepam 0.5 mg Tablet 0.25 mg PO TID PRN (Reason: Anxiety) 30 Days Qty: 45 0RF calcium carbonate-vitamin D3 600 mg-5 mcg (200 unit) Tablet 1 tab PO DAILY@1200 30 Days Qty: 30 0RF simvastatin 40 mg tablet 40 mg PO BEDTIME 30 Days Qty: 30 0RF lamotrigine 25 mg tablet 50 mg PO BID 30 Days Qty: 120 0RF ziprasidone HCl 20 mg Capsule 20 mg PO BIDWM 30 Days Qty: 60 0RF Rx Instructions: give with food (meal/snack) ascorbic acid (vitamin C) 500 mg Tablet 1,000 mg PO DAILY@1200 30 Days Qty: 30 0RF chlorpromazine 25 mg Tablet 50 mg PO DAILY 30 Days Qty: 60 0RF chlorpromazine 25 mg Tablet 75 mg PO BEDTIME 30 Days Qty: 90 0RF levothyroxine 125 mcg Tablet 125 mcg PO DAILY@0600 30 Days Qty: 30 0RF trihexyphenidyl 2 mg tablet 2 mg PO QAM 30 Days Qty: 30 0RF cholecalciferol (vitamin D3) 25 mcg (1,000 unit) Tablet 25 mcg PO DAILY@1200 30 Days Qty: 30 0RF cexcnpcszdhj-lmfo-kmkyx acid 18-400 mg-mcg Tablet 1 tab PO DAILY@1200 30 Days Qty: 30 0RF clindamycin HCl 300 mg capsule 300 mg PO TID Qty: 30 0RF Print Language: German
[2024-04-17 08:03] LABS: Alanine Aminotransferase 23 U/L (0-31); Albumin Level 4.5 g/dL (3.5-5.0); Alkaline Phosphatase 42 U/L (39-117); Anion Gap 18 (12-20); Aspartate Amino Transferase 24 U/L (5-31); Bilirubin Total 0.5 mg/dL (0.0-1.0); Blood Urea Nitrogen 21 mg/dL (9-16); Calcium 9.7 mg/dL (8.4-10.2); Carbon Dioxide 20 mmol/L (22-29); Chloride 110 mmol/L (96-108); Creatinine Clr Calc Pharmacy 28.4; Estimated Glomerular Filt Rate 32; Glucose Random 93 mg/dL (60-115); Magnesium 2.1 mg/dL (1.6-2.6); Potassium 4.2 mmol/L (3.3-5.1); Sodium 144 mmol/L (135-145); Total Protein 7.5 g/dL (6.5-8.0)
[2024-04-17 08:29] VITALS: BP 145/81; PULSE 83; RESP 16; O2SAT 98
[2024-04-17 09:03] LABS: Lactic Acid 0.9 mmol/L (0.5-2.0)
[2024-04-17 09:05] LABS: C Reactive Protein 4.25 mg/dL (< or = 0.50)
[2024-04-17] MEDS: 0.9 % Sodium Chloride 1,000 ML 999 ML IV (09:19)
[2024-04-17 09:20] LABS: MANUAL DIFF FLAG NO
[2024-04-17 09:22] LABS: Basophils Percent Auto 0.2 % (0-2); Hematocrit 34.1 % (37.0-47.0); Hemoglobin 11.7 g/dl (12.0-16.0); Imm Gran Abs Auto 0.01 X10*3/uL (0.00-0.03); Imm Gran Pct Auto 0.2 % (0.0-0.4); Lymphocytes Absolute Auto 0.7 X10*3/uL (1.2-4.9); Lymphocytes Percent Auto 12.1 % (20-40); Mean Corpuscular HGB Conc 34.3 g/dl (31.0-35.0); Mean Corpuscular Volume 90.5 fL (80.0-98.0); Mean Platelet Volume 8.5 fL (9.4-12.3); Monocytes Absolute Auto 0.4 X10*3/uL (0.1-1.2); Neutrophils Absolute Auto 4.6 x10*3/uL (2.0-8.3); Neutrophils Percent Auto 80.5 % (45-73); Platelet Count 214 X10*3/uL (160-400); Red Blood Count 3.77 X10*6/uL (4.20-5.50); Red Cell Distribution Width 12.1 % (11.0-16.0); White Blood Count 5.7 X10*3/uL (4.8-10.8)
[2024-04-17 09:34] LABS: Erythrocyte Sedimentation Rate 65 MM/HR (0-20)
[2024-04-17 10:59] VITALS: BP 153/75; PULSE 79; RESP 16; TEMP 36.8; O2SAT 98
[2024-04-17] MEDS: Clindamycin Phosphate/D5W 600 MG/50 ML PIGGYBACK 100 MG IV (11:22)
[2024-04-17] MEDS: dexAMETHasone sod phosphate 10 MG/ML VIAL IVPUSH (11:46)
== END 2024-04-17 16:41 | disposition short-term general hospital (02) ==
PROVIDERS: Physician Assistant; Emergency Provider Emergency Medicine; PCP Family Medicine
DX: G89.18 Other acute postprocedural pain (principal); G50.1 Atypical facial pain; K08.89 Other specified disorders of teeth and supporting structures; R22.0 Localized swelling, mass and lump, head
CPT/HCPCS: 36415; 80053; 83605; 83735; 85025; 85652; 86140; 87040; 96361; 96365; 96375; 99284; J0736; J1100

== ENCOUNTER 2024-04-21 08:03 | Emergency (ER) | payer MEDICARE, MEDICAID, SELFPAY ==
--- NOTE | ~2024-04-21 | US_ITS ---
EXAMINATION: US VENOUS ULTRASOUND WITH DOPPLER LOWER EXTREMITY, RIGHT CLINICAL INFORMATION: Right lower extremity edema and pain, rule out DVT. COMPARISON: None available. TECHNIQUE: Ultrasound of the deep veins is performed from the hip to the calf with compression sonography and color and pulse Doppler assessment. Spectral analysis with color-flow imaging is performed. FINDINGS: There is normal venous compression and respiratory variation and augmented flow. The visualized common femoral vein, superficial femoral vein, profunda femoral vein, popliteal vein, and the trifurcation region shows no evidence of deep venous thrombosis. There is no significant popliteal fossa cyst. If the patient's symptoms persist, followup ultrasound in 5 days 7 days might be of value to exclude proximal propagation from a non-visualized calf vein. US/US venous duplex LE RT IMPRESSION: No DVT demonstrated in the right lower extremity.
[2024-04-21 08:14] VITALS: BP 126/80; PULSE 82; O2SAT 98
[2024-04-21 08:20] VITALS: BP 144/77; PULSE 82; RESP 16; TEMP 37.2; O2SAT 100; BMI 24.6
--- NOTE | 2024-04-21 09:15 | ED.GENADULT ---
HPI - General Adult General Chief complaint: Extremity Problem Stated complaint: Lower leg & swelling, per ems Time Seen by Provider: 04/21/24 09:15 Source: patient and EMS Mode of arrival: EMS Limitations: no limitations History of Present Illness ED Provider: Rosemary Mcgee PA-C HPI narrative: Patient is a 64 year old assigned female at with a history of PTSD and bipolar disorder presenting to the emergency department today with right ankle swelling. Patient states that last night she noticed some pain in her right lower extremity and swelling. Patient states that she came here to make sure she didn't have a blood clot. Patient denies any dizziness, lightheadedness, abdominal pain, nausea, vomiting, fever, chills, blurry vision, double vision, loss of vision, chest pain, difficulty breathing, shortness of breath, back pain, night sweats, pain with urination, increased urinary frequency, increased urinary urgency, blood in her urine or stool, syncope or a near syncopal episode, recent trauma or falls, bowel incontinence, bladder incontinence, bowel retention, bladder retention, or any other complaints at this time. Onset (ago): hour(s) Location: right and lower extremity Radiation: non-radiation Severity: mild Severity scale (1-10): 3 Quality: aching and dull Pain Consistency: constant Relieving factors: none Exacerbating factors: none Associated symptoms: denies other symptoms Treatments prior to arrival: none Related Data Previous Rx's ?Medication ?Instructions ?Recorded acetaminophen 325 mg tablet 650 mg (2 x 325 mg) PO Q6H PRN 12/02/23 Headache/Pain Mild Scale (1-3) #0 tabs ascorbic acid (vitamin C) 500 mg 1,000 mg (2 x 500 mg) PO 12/02/23 tablet DAILY@1200 30 days #30 tabs calcium carbonate 600 mg-vitamin 1 tab PO DAILY@1200 30 days #30 12/02/23 D3 5 mcg (200 unit) tablet tabs chlorpromazine 25 mg tablet 50 mg (2 x 25 mg) PO DAILY 30 days 12/02/23 #60 tabs chlorpromazine 25 mg tablet 75 mg (3 x 25 mg) PO BEDTIME 30 12/02/23 days #90 tabs cholecalciferol (vitamin D3) 25 25 mcg PO DAILY@1200 30 days #30 12/02/23 mcg (1,000 unit) tablet tabs clonazepam 0.5 mg tablet 0.25 mg (1/2 x 0.5 mg) PO TID PRN 12/02/23 Anxiety 30 days #45 tabs famotidine 20 mg tablet 20 mg PO DAILY 30 days #30 tabs 12/02/23 lamotrigine 200 mg tablet 200 mg PO DAILY 30 days #30 tabs 12/02/23 lamotrigine 25 mg tablet 50 mg (2 x 25 mg) PO BID 30 days 12/02/23 #120 tabs levothyroxine 125 mcg tablet 125 mcg PO DAILY@0600 30 days #30 12/02/23 tabs multivitamin-ferrous 1 tab PO DAILY@1200 30 days #30 12/02/23 fumarate-folic acid 18 mg-400 mcg tabs tablet simvastatin 40 mg tablet 40 mg PO BEDTIME 30 days #30 tabs 12/02/23 trazodone 50 mg tablet 50 mg PO BEDTIME PRN Insomnia 30 12/02/23 days #30 tabs trihexyphenidyl 2 mg tablet 2 mg PO QAM 30 days #30 tabs 12/02/23 ziprasidone HCl 20 mg capsule 20 mg PO BIDWM 30 days #60 caps 12/02/23 ziprasidone HCl 80 mg capsule 80 mg PO BIDWM 30 days #60 caps 12/02/23 clindamycin HCl 300 mg capsule 300 mg PO TID #30 caps 04/15/24 Allergies Allergy/AdvReac Type Severity Reaction Status Date / Time Penicillins [PENICILLINS] Allergy Severe HIVES Verified 04/21/24 08:22 sulfamethoxazole Allergy Severe DIARRHEA Verified 04/21/24 08:22 [From BACTRIM] trimethoprim [From BACTRIM] Allergy Severe DIARRHEA Verified 04/21/24 08:22 aripiprazole [From ABILIFY] Allergy Intermediate ATAXIA Verified 04/21/24 08:22 aspirin [ASPIRIN] Allergy Intermediate STOMACH Verified 04/21/24 08:22 CRAMPS benztropine [From COGENTIN] Allergy Intermediate CONFUSION, Verified 04/21/24 08:22 memory loss bupropion [BUPROPION] Allergy Intermediate DIZZINESS Verified 04/21/24 08:22 erythromycin base Allergy Intermediate GI UPSET Verified 04/21/24 08:22 [ERYTHROMYCIN BASE] ibuprofen [From MOTRIN] Allergy Intermediate STOMACH Verified 04/21/24 08:22 CRAMPS olanzapine [From ZYPREXA] Allergy Intermediate TONGUE Verified 04/21/24 08:22 MOVEMENTS perphenazine [From TRILAFON] Allergy Intermediate ARM AND Verified 04/15/24 07:14 LEG MOVEMENTS, FALL risperidone [From RISPERDAL] Allergy Intermediate TONGUE Verified 04/15/24 07:14 MOVEMENT milk Allergy Drowsy Verified 04/15/24 07:14 egg AdvReac Stomach Verified 04/15/24 07:14 Upset From INDERAL Allergy Intermediate WHEEZING Uncoded 04/15/24 07:14 Review of Systems Constitutional: Constitutional: Reports no additional constitutional complaints, Denies chills, Denies fever(s) and Denies night sweats Eyes: Eyes: Reports no additional eye complaints, Denies blurry vision, Denies change in vision, Denies diplopia, Denies eye discharge, Denies loss of vision and Denies eye pain ENT: Denies dizziness Cardiovascular: Cardiovascular: Reports no additional cardiovascular complaints, Denies chest pain, Denies lightheadedness, Denies Loss of Consciousness and Denies dyspnea Respiratory: Respiratory: Reports no additional respiratory complaints and Denies dyspnea Gastrointestinal: Gastrointestinal: Reports no additional gastrointestinal complaints, Denies abdominal pain, Denies melena, Denies hematochezia, Denies change in bowel habits and Denies change in stool character Genitourinary: Genitourinary: Denies hematuria, Denies urinary frequency, Denies dysuria, Denies urinary incontinence, Denies urinary hesitancy and Denies urinary urgency Musculoskeletal: Musculoskeletal: Reports no additional musculoskeletal complaints, Denies numbness and Denies tingling Comments: right lower leg pain and swelling Neurologic: Denies dizziness, Denies loss of vision, Denies numbness and Denies tingling Psychiatric: Psychiatric: Reports no additional psychiatric complaints Endocrine: Endocrine: Reports no additional endocrine complaints Hematologic/Lymphatic: Hematologic/Lymphatic: Reports no additional hematologic/lymphatic complaints Allergic/Immunologic: Allergic/Immunologic: Reports no additional allergic/immunologic complaints PMFSH Past Medical History Attestation statement: The following information was validated with the patient. Source: old records reviewed and nursing notes reviewed Medical History Routine medical exam CKD (chronic kidney disease), stage IV Bipolar disorder Neck pain Murmur GERD (gastroesophageal reflux disease) Hypothyroidism Irritable bowel syndrome (IBS) Hyperlipidemia Anxiety and depression Dissociative identity disorder Surgical History Hx of colonoscopy History of total thyroidectomy Social History Social History Household Members: None Household Members Other:: roommate Housing: Apartment Are you a primary animal caretaker supervisor to a significant other at home: No Do you presently have visiting nurse or other home services: Yes (pt has VNA for only one day prior to admission.) Comment: aware of trip hazard Patient Tobacco Use Status: Former Tobacco user Quit Date: Pt quit over 25 years ago Tobacco use type: Cigarette Cigarette Packs Per Day: 1 Cigarettes Per Day: 20.0 Years Smoked: 20 e-Cigarette/Vaping Use: Never Used Second Hand Smoke Exposure: No Advance Directives: No Advance Directives Information Provided: No service: No Sexual orientation: Did not discuss Physical Exam ED Vital Signs: Vital Signs - 24 hr 04/21/24 08:20 04/21/24 09:44 Temperature 98.9 F 98.4 F Pulse Rate 82 68 Respiratory Rate 16 20 Blood Pressure 144/77 H 132/71 Pulse Oximetry 100 94 Oxygen Delivery Method Room Air Room Air BMI result Body Mass Index 24.6 Const General: cooperative, no acute distress, alert and awake Nutritional Appearance: well nourished Orientation/consciousness: patient oriented x3 Limitations: no limitations HENMT Head: Yes normal to inspection and Yes atraumatic Ears: hearing grossly normal bilaterally and external ears normal General nose exam: Normal external nose present, no nasal discharge noted and no epistaxis Face and sinus: Yes normal facial exam, No abrasion and No laceration Mouth: Normal oral and palatal mucosa present, no drooling and no muffled voice Eyes General: appearance normal, both eyes and all related structures Periorbital: periorbital findings normal Eyelids: Yes eyelids normal Conjunctivae: conjunctivae normal Pupils: Equal, round and reactive pupils present EOM: EOMs intact bilaterally Neck Neck: Yes normal visual inspection, Yes full ROM and Yes no lymphadenopathy Chest Chest palpation & inspection: normal inspection of the chest Resp Effort & Inspection: normal respiratory effort and able to speak in complete sentences GI Inspection: Yes normal to inspection Neuro General: patient oriented x3 and moves all extremities Cranial nerves: Yes Equal, round and reactive pupils present Cognition (Neuro): normal cognition Motor exam (neuro): 5/5 motor strength present throughout Sensory Exam: Normal double simultaneous stimulation for sensation Coordination: [id number] test normal Extrem Other: minimal swelling present to the right ankle joint with no other remarkable findings General: Yes full ROM and Yes capillary refill normal Psych Appearance: grossly normal Mental Status: mental status grossly normal Affect: normal affect Attitude: cooperative Thought process: Normal thought process present Thought content: Normal thought content present Insight: Good insight present (Psych) Medical Decision Making Medical Decision Making MDM Narrative: Patient is a 64 year old assigned female at with a history of PTSD and bipolar disorder presenting to the emergency department today with right ankle pain and swelling. Patient's physical exam was as noted in the physical exam portion of this note. Patient's RLE US showed no acute process. I explained my physical exam findings as well as all test results to the patient. I answered all questions asked by the patient. I explained to the patient that this very minimal swelling of her right ankle could be due to a number of things, including arthritis. I stressed the importance of the patient taking her medication as prescribed. I stressed the importance of the patient following up with her primary care provider. I stressed the importance of the patient returning to the emergency department immediately if her symptoms were to worsen or if she were to develop any dizziness, shortness of breath, difficulty breathing, chest pain, blurry vision, loss of vision, nausea, vomiting, abdominal pain, fever, chills, back pain, or any other complaints. Patient verbalized agreement and understanding with this treatment plan and discharge. Differential Diagnosis Differential Diagnoses: The differential diagnosis associated with the presentation includes Right ankle pain Right ankle sprain Right DVT Dependent edema Lower leg edema Admission/Observation Consideration of admission/observation: Escalation of care including admission/observation considered Patient would have been admitted to the hospital had her work up had any findings where hospital admission was appropriate and her clinical presentation warranted hospital admission. Independent Interpretation I performed an independent interpretation of an: Ultrasound Interpretation: My interpretation is in agreement with the radiologist's impression of this imaging study. EXAMINATION: US VENOUS ULTRASOUND WITH DOPPLER LOWER EXTREMITY, RIGHT CLINICAL INFORMATION: Right lower extremity edema and pain, rule out DVT. COMPARISON: None available. TECHNIQUE: Ultrasound of the deep veins is performed from the hip to the calf with compression sonography and color and pulse Doppler assessment. Spectral analysis with color-flow imaging is performed. FINDINGS: There is normal venous compression and respiratory variation and augmented flow. The visualized common femoral vein, superficial femoral vein, profunda femoral vein, popliteal vein, and the trifurcation region shows no evidence of deep venous thrombosis. There is no significant popliteal fossa cyst. If the patient's symptoms persist, followup ultrasound in 5 days 7 days might be of value to exclude proximal propagation from a non-visualized calf vein. US/US venous duplex LE RT IMPRESSION: No DVT demonstrated in the right lower extremity. Dictated By: Juanita Huff MD Signed By: Electronically signed by Juanita Huff MD 04/21/24 0920 Radiology Impression Discussion of test interpretation with radiology: I have reviewed the radiologist's reading. Tests considered The following testing was considered but not selected: I considered obtaining an x-ray of the right foot and ankle however, given the patient's presentation and no trauma, it was not warranted. I discussed this with the patient who verbalized agreement and understanding. Discharge Plan Discharge Clinical Impression: Ankle pain, Ankle swelling Patient Disposition: Home, Self-Care Instructions: Arthralgia (ED), Swollen Ankle Joint (ED) Additional Instructions: Follow up with your primary care provider. Return to the emergency department immediately if your symptoms worsen or if you develop any dizziness, shortness of breath, difficulty breathing, chest pain, blurry vision, loss of vision, nausea, vomiting, abdominal pain, fever, chills, back pain, or any other complaints. Prescriptions: No Action acetaminophen 325 mg Tablet 650 mg PO Q6H PRN (Reason: Headache/Pain Mild Scale (1-3)) Qty: 0 0RF trazodone 50 mg Tablet 50 mg PO BEDTIME PRN (Reason: Insomnia) 30 Days Qty: 30 0RF famotidine 20 mg Tablet 20 mg PO DAILY 30 Days Qty: 30 0RF ziprasidone HCl 80 mg capsule 80 mg PO BIDWM 30 Days Qty: 60 0RF lamotrigine 200 mg tablet 200 mg PO DAILY 30 Days Qty: 30 0RF clonazepam 0.5 mg Tablet 0.25 mg PO TID PRN (Reason: Anxiety) 30 Days Qty: 45 0RF calcium carbonate-vitamin D3 600 mg-5 mcg (200 unit) Tablet 1 tab PO DAILY@1200 30 Days Qty: 30 0RF simvastatin 40 mg tablet 40 mg PO BEDTIME 30 Days Qty: 30 0RF lamotrigine 25 mg tablet 50 mg PO BID 30 Days Qty: 120 0RF ziprasidone HCl 20 mg Capsule 20 mg PO BIDWM 30 Days Qty: 60 0RF Rx Instructions: give with food (meal/snack) ascorbic acid (vitamin C) 500 mg Tablet 1,000 mg PO DAILY@1200 30 Days Qty: 30 0RF chlorpromazine 25 mg Tablet 50 mg PO DAILY 30 Days Qty: 60 0RF chlorpromazine 25 mg Tablet 75 mg PO BEDTIME 30 Days Qty: 90 0RF levothyroxine 125 mcg Tablet 125 mcg PO DAILY@0600 30 Days Qty: 30 0RF trihexyphenidyl 2 mg tablet 2 mg PO QAM 30 Days Qty: 30 0RF cholecalciferol (vitamin D3) 25 mcg (1,000 unit) Tablet 25 mcg PO DAILY@1200 30 Days Qty: 30 0RF gtbuidrufrhe-qqyh-[id number] acid 18-400 mg-mcg Tablet 1 tab PO DAILY@1200 30 Days Qty: 30 0RF clindamycin HCl 300 mg capsule 300 mg PO TID Qty: 30 0RF Referrals: [facility] Family Medicine [Provider Group] (Call to establish and follow up with a primary care provider. If you already have a primary care provider, please follow up with them.) [facility] [Provider Group] [facility] [Provider Group] Discharge Date/Time: 04/21/24 09:50 Print Language: Chinese
[2024-04-21 09:44] VITALS: BP 132/71; PULSE 68; RESP 20; TEMP 36.9; O2SAT 94
--- NOTE | 2024-04-21 12:17 | MHC.CM.ED ---
Patient was d/c'd from ER. Patient's sister in law, Daniel, in the waiting room to transport patient home and requesting to speak to case management. Patient's PCP is Dr Lino Parker. T/W spoke with Marcie from Dr Parker's office. Dr Parker recommended patient go to ER due to leg swelling to rule out DVT. US was completed and negative. Patient has a long standing history of multiple mental health issues including anxiety. Met in waiting room with patient and sister in law, Daniel. Daniel is concerned that patient has been coming to the ER instead of utilizing other resources. Patient had a toothache for 4 days. Patient called her dentist. Her dentist was out of town. Patient came to the ER and ended up needing to be transferred to [facility]. Patient came to the ER today d/t to leg swelling. T/W reiterated that patient was advised to come to the ER to rule out blood clot in her leg. Daniel appears frustrated that patient is running to ER. T/W explained patient has a long standing history of anxiety, and has the capacity to make her own decisions, so unfortunately patient had the right to come to the ER if she felt is was needed. T/W had a conversation with patient about using other resources if warranted, ie utilizing PCP appointment, seeing on-call dentist if needed, etc. Patient verbalized understanding. Daniel verbalized understanding. Marcie of Dr Parker's office was made aware of this conversation. Per Marcie, patient does not drive and utilizes medical transportation for office visits. Patient's family lives about an hour away and is not always available to assist with transportation to urgent office visits, which is why patient has been known to utilize 911 for transport to the ER. No additional CM needs indicated at this time.
== END 2024-04-21 09:50 | disposition home or self-care (01) ==
PROVIDERS: Emergency Provider Emergency Medicine; PCP Family Medicine
DX: M25.471 Effusion, right ankle (principal); N18.4 Chronic kidney disease, stage 4 (severe); M79.604 Pain in right leg
CPT/HCPCS: 93971; 99283; 99284

== ENCOUNTER 2024-05-06 07:25 | Emergency (ER) | payer MEDICARE, MEDICAID, SELFPAY ==
--- NOTE | ~2024-05-06 | CT_ITS ---
EXAMINATION: CT ABDOMEN AND PELVIS WITHOUT CONTRAST CLINICAL INFORMATION: Left lower quadrant pain with question of small bowel obstruction versus diverticulitis. COMPARISON: CT abdomen/pelvis 10/05/2009. TECHNIQUE: Multidetector volumetric imaging was performed from the superior aspect of the liver through the pubic symphysis. Sagittal and coronal reformatted images were obtained on the technologist's workstation. This CT examination was performed using dose optimization techniques as appropriate, variously including the following: *Automated exposure control *Adjustment of mA and/or kV according to patient size (this includes techniques or standardized protocols for targeted exams where dose is matched to indication/reason for exam; i.e. extremities or head) *Use of iterative reconstruction technique DLP: 532 mGy-cm FINDINGS: LUNG BASES: The visualized lung bases are unremarkable. There is a 4 mm left lower lobe nodule anteriorly adjacent to the major fissure (4:14). LIVER, GALLBLADDER, AND BILIARY TREE: The liver is normal in size, shape, and attenuation. No focal hepatic lesion or biliary ductal dilatation is present. There is subtle layering high density material and stones in the gallbladder, new since 2008, without evidence of cholecystitis. PANCREAS: Unremarkable. SPLEEN: Unremarkable. ADRENAL GLANDS: Unremarkable. KIDNEYS AND URETERS: The kidneys are normal in size, shape, and attenuation. There is nephrolithiasis present bilaterally with multiple small nonobstructing calculi throughout the kidneys. The largest measures about 4 mm in the left upper pole. Since the prior study of 2008, some renal cortical loss has occurred with some new lobularity of the cortices. No hydronephrosis, hydroureter, or ureteral calculi seen. No perinephric stranding. A benign left upper pole 1.5 cm Bosniak class I renal cyst is noted which requires no additional imaging or follow up. No solid renal masses are seen. BLADDER: Unremarkable. GASTROINTESTINAL TRACT: A moderate stool burden is present throughout the colon. No evidence of bowel obstruction. The small and large bowel are unremarkable. The appendix is dilated and filled with fluid. No periappendiceal inflammatory changes are seen. No appendicolith is noted. Findings suggestive of an appendiceal mucocele. ABDOMINAL WALL: No significant hernia is appreciated. LYMPH NODES: No retroperitoneal lymphadenopathy. VASCULAR: Unremarkable. The left renal vein is retroaortic. PELVIC VISCERA: The uterus and adnexa are unremarkable. A nabothian cyst is present in the cervix. Calcification in the right uterus may be secondary to a fibroid. OSSEOUS STRUCTURES: Degenerative changes are seen in the lower thoracic spine as well as at L2-L3. No bony destructive lesions. CT/CT abdomen pelvis wo IV con IMPRESSION: 1. A cause for the patient's left lower quadrant pain has not been found. 2. Incidental note made of a dilated fluid-filled appendix without periappendiceal inflammatory changes. Findings suggestive of an appendiceal mucocele. 3. Bilateral nephrolithiasis without hydronephrosis and interval renal volume loss since 2008. 4. Incidental note made of a 4 mm left lower lobe pulmonary nodule, cholelithiasis without cholecystitis, and degenerative changes in the spine. Fleischner guidelines were followed.
--- NOTE | ~2024-05-06 | US_ITS ---
EXAMINATION: US VENOUS ULTRASOUND WITH DOPPLER LOWER EXTREMITY, BILATERAL CLINICAL INFORMATION: Lower extremity swelling, right greater than left COMPARISON: Venous ultrasound right lower extremity 04/21/2024, no DVT TECHNIQUE: Ultrasound of the deep veins is performed from the hip to the calf with compression sonography and color and pulse Doppler assessment. Spectral analysis with color-flow imaging is performed. FINDINGS: RIGHT: There is normal venous compression and respiratory variation the visualized common femoral vein, superficial femoral vein, profunda femoral vein, popliteal vein, and the posterior tibial and peroneal veins show no evidence of deep venous thrombosis. LEFT: There is normal venous compression and respiratory variation. The visualized common femoral vein, superficial femoral vein, profunda femoral vein, popliteal vein, and the posterior tibial and peroneal veins show no evidence of deep venous thrombosis. US/US venous duplex LE IMPRESSION: No DVT demonstrated in the bilateral lower extremities.
[2024-05-06 07:35] VITALS: BP 112/78; BP 115/68; PULSE 84; PULSE 95; RESP 17; O2SAT 95; BMI 25.5
[2024-05-06 08:02] VITALS: TEMP 37.1
--- NOTE | 2024-05-06 08:18 | ED_ITS ---
HPI - Abdominal Pain General Chief Complaint: Abdominal Pain Stated Complaint: LLQ PAIN PER EMS Time Seen by Provider: 05/06/24 07:39 Source: patient and EMS Mode of arrival: EMS Limitations: no limitations History of Present Illness ED Provider: Joni STEELE HPI narrative: This is a 64-year-old female history of personality disorder, PTSD, bipolar disorder presenting to the emergency department with complaints of left lower quadrant abdominal pain which started last night patient reports pain is intermittent, sharp in very uncomfortable. She reports that for the past week she has not had a normal bowel movement, she was having diarrhea, took Imodium and since then has not been having a bowel movement reports it has been about a week. She also reports she has not been passing gas. Reports to nursing that her legs have been swollen b/l but this comes and goes. No cp, sob, nausea, vomiting, headache, vision changes, dizziness, weakness, sick contacts, urinary sx. Related Data Previous Rx's ?Medication ?Instructions ?Recorded acetaminophen 325 mg tablet 650 mg (2 x 325 mg) PO Q6H PRN 12/02/23 Headache/Pain Mild Scale (1-3) #0 tabs ascorbic acid (vitamin C) 500 mg 1,000 mg (2 x 500 mg) PO 12/02/23 tablet DAILY@1200 30 days #30 tabs calcium carbonate 600 mg-vitamin 1 tab PO DAILY@1200 30 days #30 12/02/23 D3 5 mcg (200 unit) tablet tabs chlorpromazine 25 mg tablet 50 mg (2 x 25 mg) PO DAILY 30 days 12/02/23 #60 tabs chlorpromazine 25 mg tablet 75 mg (3 x 25 mg) PO BEDTIME 30 12/02/23 days #90 tabs cholecalciferol (vitamin D3) 25 25 mcg PO DAILY@1200 30 days #30 12/02/23 mcg (1,000 unit) tablet tabs clonazepam 0.5 mg tablet 0.25 mg (1/2 x 0.5 mg) PO TID PRN 12/02/23 Anxiety 30 days #45 tabs famotidine 20 mg tablet 20 mg PO DAILY 30 days #30 tabs 12/02/23 lamotrigine 200 mg tablet 200 mg PO DAILY 30 days #30 tabs 12/02/23 lamotrigine 25 mg tablet 50 mg (2 x 25 mg) PO BID 30 days 12/02/23 #120 tabs levothyroxine 125 mcg tablet 125 mcg PO DAILY@0600 30 days #30 12/02/23 tabs multivitamin-ferrous 1 tab PO DAILY@1200 30 days #30 12/02/23 fumarate-folic acid 18 mg-400 mcg tabs tablet simvastatin 40 mg tablet 40 mg PO BEDTIME 30 days #30 tabs 12/02/23 trazodone 50 mg tablet 50 mg PO BEDTIME PRN Insomnia 30 12/02/23 days #30 tabs trihexyphenidyl 2 mg tablet 2 mg PO QAM 30 days #30 tabs 12/02/23 ziprasidone HCl 20 mg capsule 20 mg PO BIDWM 30 days #60 caps 12/02/23 ziprasidone HCl 80 mg capsule 80 mg PO BIDWM 30 days #60 caps 12/02/23 clindamycin HCl 300 mg capsule 300 mg PO TID #30 caps 04/15/24 sennosides 8.6 mg tablet (senna) 8.6 mg PO BEDTIME #14 tabs 05/06/24 Allergies Allergy/AdvReac Type Severity Reaction Status Date / Time Penicillins [PENICILLINS] Allergy Severe HIVES Verified 05/06/24 07:38 sulfamethoxazole Allergy Severe DIARRHEA Verified 04/21/24 08:22 [From BACTRIM] trimethoprim [From BACTRIM] Allergy Severe DIARRHEA Verified 04/21/24 08:22 aripiprazole [From ABILIFY] Allergy Intermediate ATAXIA Verified 04/21/24 08:22 aspirin [ASPIRIN] Allergy Intermediate STOMACH Verified 04/21/24 08:22 CRAMPS benztropine [From COGENTIN] Allergy Intermediate CONFUSION, Verified 04/21/24 08:22 memory loss bupropion [BUPROPION] Allergy Intermediate DIZZINESS Verified 04/21/24 08:22 erythromycin base Allergy Intermediate GI UPSET Verified 04/21/24 08:22 [ERYTHROMYCIN BASE] ibuprofen [From MOTRIN] Allergy Intermediate STOMACH Verified 04/21/24 08:22 CRAMPS olanzapine [From ZYPREXA] Allergy Intermediate TONGUE Verified 04/21/24 08:22 MOVEMENTS perphenazine [From TRILAFON] Allergy Intermediate ARM AND Verified 04/15/24 07:14 LEG MOVEMENTS, FALL risperidone [From RISPERDAL] Allergy Intermediate TONGUE Verified 04/15/24 07:14 MOVEMENT milk Allergy Drowsy Verified 04/15/24 07:14 egg AdvReac Stomach Verified 04/15/24 07:14 Upset From INDERAL Allergy Intermediate WHEEZING Uncoded 04/15/24 07:14 Review of Systems Review of Systems Yes all other systems are reviewed and are negative [facility] Past Medical History Attestation statement: The following information was validated with the patient. Source: old records reviewed and nursing notes reviewed Medical History Routine medical exam CKD (chronic kidney disease), stage IV Bipolar disorder Neck pain Murmur GERD (gastroesophageal reflux disease) Hypothyroidism Irritable bowel syndrome (IBS) Hyperlipidemia Anxiety and depression Dissociative identity disorder Surgical History Hx of colonoscopy History of total thyroidectomy Social History Social History Household Members: None Household Members Other:: roommate Housing: Apartment Are you a primary primary care nurse practitioner to a significant other at home: No Do you presently have visiting nurse or other home services: Yes (pt has VNA for only one day prior to admission.) Comment: aware of trip hazard Patient Tobacco Use Status: Former Tobacco user Tobacco use type: Cigarette Cigarette Packs Per Day: 1 Cigarettes Per Day: 20.0 Years Smoked: 20 Smoked in Last 30 Days: No e-Cigarette/Vaping Use: Never Used Second Hand Smoke Exposure: No Use of substances other than those prescribed or required for medical reasons: No Advance Directives: No Advance Directives Information Provided: Yes service: No Sexual orientation: Did not discuss Physical Exam ED Vital Signs: Vital Signs - 24 hr 05/06/24 07:35 05/06/24 08:02 Temperature 98.8 F Pulse Rate 84 Respiratory Rate 17 Blood Pressure 115/68 Pulse Oximetry 95 Oxygen Delivery Method Room Air BMI result Body Mass Index 25.5 vss Appearance: Alert.? Oriented X3.? No acute distress.? Head: Normocephalic, atraumatic, no step-offs or deformities Eyes: Pupils equal, round and reactive to light.? Neck: Normal inspection.? Neck supple.? CVS: Normal heart rate and rhythm.? Pulses normal.? Respiratory: No respiratory distress.? Breath sounds normal.? Abdomen: Soft and + LLQ tenderness on exam .? Skin: Skin warm and dry.? Normal skin color.? Normal skin turgor.? Extremities: No lower extremity edema.? No calf ttp. 5/5 strength to bilateral upper and lower extremities Neuro: Oriented X 3.? No motor deficit.? No sensory deficit. CN 2-12 intact Course Reevaluation(s) Reevaluation #1: CBC leukopenia 4.4, normocytic anemia appears to be around baseline. Chemistry with elevated sodium 148, carbon dioxide chronically elevated 33. BUN within normal range, creatinine slightly higher than usual 1.82. Troponin negative, normal lipase. UA without infection. DVT study of bilateral lower extremities no DVT. CT abdomen with a cause for patient's left lower quadrant not be identified. Incidental note of a dilated fluid-filled appendix without periappendiceal inflammatory changes, findings suggestive of an appendiceal mucocele. Bilateral nephrolithiasis without hydronephrosis and interval renal volume loss since 2008. Incidental note of a 4 mm left lower lobe pulmonary nodule cholelithiasis without acute cholecystitis and degenerative changes in the spine. Time: 14:00 Reevaluation #2: I did discuss the appendiceal mucocele with surgery who recommends out patient follow up. No point tenderness to RLQ. No peritonitic signs. Patient feeling much better had a bowel movement. Feels better now passing gas and more comfortable. Tolerating p.o.. Educated patient on diagnosis and treatment plan, answered all question, patient verbalizes understanding. At this time patient will be discharged home, advised to return with new or worsening symptoms. Educated on worrisome signs and symptoms and when to return. At this time I feel comfortable discharge home. Time: 14:40 Medical Decision Making Medical Decision Making [facility] Narrative: 823 64 yo f presents w/ LLQ pain x 2 days, constipation x 1 week. Lower extremity swelling worsening X 1. 5 weeks PE- tenderness to palpation to left lower quadrant. + 1+ nonpitting edema to the left lower extremity, 2+ nonpitting edema to the right lower extremity. 2+ dorsalis pedis, anterior tibialis posterior tibialis pulses equal bilateral. History and physical exam concerning for possible obstruction versus diverticulitis. Lower extremity swelling likely secondary to dependent edema will rule out DVT. Unlikely arterial occlusion. Unlikely neurovascular compromise or threat to limb. I do not suspect acute abdomen, appendicitis, pancreatitis. Plan - labs, urine, abdominal imaging. Will obtain BNP and venous duplex of lower extremities as right leg is more swollen than left. Differential Diagnosis Differential Diagnoses: The differential diagnosis associated with the presentation includes History and physical exam concerning for possible obstruction versus diverticulitis. Lower extremity swelling likely secondary to dependent edema will rule out DVT. Unlikely arterial occlusion. Unlikely neurovascular compromise or threat to limb. I do not suspect acute abdomen, appendicitis, pancreatitis. Admission/Observation Consideration of admission/observation: Escalation of care including admission/observation considered Lab Data MDM Lab Attestation statement: I reviewed the patient's lab results. 05/06/24 08:30 05/06/24 08:30 Labs: Lab Results 05/06/24 05/06/24 Range/Units 08:30 12:17 WBC 4.4 L (4.8-10.8) X10*3/uL RBC 3.54 L (4.20-5.50) X10*6/uL Hgb 11.1 L (12.0-16.0) g/dl Hct 32.0 L (37.0-47.0) % MCV 90.4 (80.0-98.0) fL MCH 31.4 (27.0-33.0) pg MCHC 34.7 (31.0-35.0) g/dl RDW 12.7 (11.0-16.0) % Plt Count 177 (160-400) X10*3/uL MPV 8.8 L (9.4-12.3) fL Immature Gran % (Auto) 0.2 (0.0-0.4) % Neut % (Auto) 76.0 H (45-73) % Lymph % (Auto) 14.9 L (20-40) % [place] % (Auto) 8.7 (2-11) % Eos % (Auto) 0.0 (0-4) % Baso % (Auto) 0.2 (0-2) % Lymph # (Auto) 0.7 L (1.2-4.9) X10*3/uL [place] # (Auto) 0.4 (0.1-1.2) X10*3/uL Eos # (Auto) 0.0 (0.0-0.4) X10*3/uL Baso # (Auto) 0.0 (0.0-0.2) X10*3/uL Abs Immat Gran (auto) 0.01 (0.00-0.03) X10*3/uL Absolute Neuts (auto) 3.3 (2.0-8.3) x10*3/uL Absolute Nucleated RBC 0.000 (0.0-0.012) X10*3/uL Nucleated RBC % (auto) 0.0 (0.0-0.2) /100WBC PT 11.7 (11.1-13.3) SEC INR 1.0 (0.9-1.1) Sodium 148 H (135-145) mmol/L Potassium 4.1 (3.3-5.1) mmol/L Chloride 110 H (96-108) mmol/L Carbon Dioxide 33 H (22-29) mmol/L Anion Gap 9 L (12-20) BUN 14 (9-16) mg/dL Creatinine 1.82 H (0.5-1.4) mg/dL Estim Creat Clear Calc 27.5 Estimated GFR 28 Random Glucose 88 (60-115) mg/dL Calcium 10.0 (8.4-10.2) mg/dL Magnesium 1.8 (1.6-2.6) mg/dL Total Bilirubin 0.4 (0.0-1.0) mg/dL AST 28 (5-31) U/L ALT 21 (0-31) U/L Alkaline Phosphatase 31 L (39-117) U/L Troponin I High Sens 2.8 (<3.5-17.0) ng/L B-Natriuretic Peptide 20 (<100) pg/mL Total Protein 6.3 L (6.5-8.0) g/dL Albumin 3.9 (3.5-5.0) g/dL Lipase 68 (8-78) U/L Urine Color Yellow Urine Appearance Clear Urine pH 8.0 (5.0-9.0) Ur Specific [place] <= 1.005 (1.005-1.025) Urine Protein Negative (Neg-Trace) mg/dL Urine Glucose (UA) Negative (Negative) mg/dL Urine Ketones Negative (Negative) mg/dL Urine Blood Negative (Negative) Urine Nitrite Negative (Negative) Ur Leukocyte Esterase Small (1+) H (Negative) Urine RBC 0-2 (0-2) /HPF Urine WBC 0-5 (0-5) /HPF Ur Squamous Epith Cells 0-2 (0-2) /HPF Urine Bacteria None Seen (None Seen) Hyaline Casts 0-2 (0-2) /LPF Independent Interpretation I performed an independent interpretation of an: EKG (Vent. Rate : 071 BPM Atrial Rate : 071 BPM P-R Int : 192 ms QRS Dur : 080 ms QT Int : 420 ms P-R-T Axes : 075 -08 040 degrees QTc Int : 456 ms Normal sinus rhythm Normal ECG When compared with ECG of 17-NOV-2023 09:32, No significant change was found) and CT Scan (CT/CT abdomen pelvis wo IV con IMPRESSION: 1. A cause for the patient's left lower quadrant pain has not been found. 2. Incidental note made of a dilated fluid-filled appendix without periappendiceal inflammatory changes. Findings suggestive of an appendiceal mucocele. 3. Bilateral nephrolithias) Radiology Impression Discussion of test interpretation with radiology: I have reviewed the radiologist's reading. External Record Review External record reviewed: Inpatient record, Office record, Outpatient record, Prior outpatient labs, Prior outpatient radiology, Primary care record and Outside ED record Chronic Conditions Patient?s care impacted by: Other ( bipolar, PTSD, personality disorder, schizoaffective disorder, CKD, hypothyroidism, hyperlipidemia ) Medications Administered Discontinued Medications Generic Name Dose Route Start Last Admin Trade Name Freq PRN Reason Stop Dose Admin Bisacodyl 10 mg 05/06/24 08:09 05/06/24 08:32 Bisacodyl 5 Mg Tablet. PO 05/06/24 08:10 10 mg ONCE ONE Administration Clonazepam 0.25 mg 05/06/24 11:43 05/06/24 11:51 Clonazepam 0.125 Mg Tab.Rapdis PO 05/06/24 11:44 0.25 mg ONCE ONE Administration Morphine Sulfate 2 mg 05/06/24 09:13 05/06/24 09:24 Morphine Sulfate 2 Mg/Ml Cartridge IVPUSH 05/06/24 09:14 Not Given ONCE ONE Protocol Senna 15 ml 05/06/24 11:43 05/06/24 11:50 Senna [place] Extract Oral Syrup 15 Ml Syrup PO 05/06/24 11:44 15 ml ONCE ONE Administration Critical Care Time Critical Care Time Critical Care Time: Yes Total Critical Care Time: 35 Attestation: I attest to this time spent taking care of the patient, obtaining history, physical, reviewing labs, imaging, speaking to my attending, specialist or hospitalist. Discharge Plan Discharge Clinical Impression: Abdominal pain, Constipation, Appendicular mucocele Patient Disposition: Home, Self-Care Instructions: Constipation (ED), Constipation (DC), Abdominal Pain (ED) Additional Instructions: Take your medications as prescribed. If you were prescribed antibiotics today, it is important that you take your medication to their entirety, do not skip any doses, do not finish them early. Follow-up with your primary care provider this week. Return to the emergency department with new or worsening symptoms. Such as fevers, chills, chest pain, shortness of breath, nausea, vomiting, dizziness, headache, vision changes, lethargy In case of emergency call 911 US/US venous duplex LE BI IMPRESSION: No DVT demonstrated in the bilateral lower extremities. Please follow-up with general surgery for the below results. CT/CT abdomen pelvis wo IV con IMPRESSION: 1. A cause for the patient's left lower quadrant pain has not been found. 2. Incidental note made of a dilated fluid-filled appendix without periappendiceal inflammatory changes. Findings suggestive of an appendiceal mucocele. 3. Bilateral nephrolithiasis without hydronephrosis and interval renal volume loss since 2008. 4. Incidental note made of a 4 mm left lower lobe pulmonary nodule, cholelithiasis without cholecystitis, and degenerative changes in the spine. Fleischner guidelines were followed. Prescriptions: New sennosides [senna] 8.6 mg tablet 8.6 mg PO BEDTIME Qty: 14 0RF No Action acetaminophen 325 mg Tablet 650 mg PO Q6H PRN (Reason: Headache/Pain Mild Scale (1-3)) Qty: 0 0RF trazodone 50 mg Tablet 50 mg PO BEDTIME PRN (Reason: Insomnia) 30 Days Qty: 30 0RF famotidine 20 mg Tablet 20 mg PO DAILY 30 Days Qty: 30 0RF ziprasidone HCl 80 mg capsule 80 mg PO BIDWM 30 Days Qty: 60 0RF lamotrigine 200 mg tablet 200 mg PO DAILY 30 Days Qty: 30 0RF clonazepam 0.5 mg Tablet 0.25 mg PO TID PRN (Reason: Anxiety) 30 Days Qty: 45 0RF calcium carbonate-vitamin D3 600 mg-5 mcg (200 unit) Tablet 1 tab PO DAILY@1200 30 Days Qty: 30 0RF simvastatin 40 mg tablet 40 mg PO BEDTIME 30 Days Qty: 30 0RF lamotrigine 25 mg tablet 50 mg PO BID 30 Days Qty: 120 0RF ziprasidone HCl 20 mg Capsule 20 mg PO BIDWM 30 Days Qty: 60 0RF Rx Instructions: give with food (meal/snack) ascorbic acid (vitamin C) 500 mg Tablet 1,000 mg PO DAILY@1200 30 Days Qty: 30 0RF chlorpromazine 25 mg Tablet 50 mg PO DAILY 30 Days Qty: 60 0RF chlorpromazine 25 mg Tablet 75 mg PO BEDTIME 30 Days Qty: 90 0RF levothyroxine 125 mcg Tablet 125 mcg PO DAILY@0600 30 Days Qty: 30 0RF trihexyphenidyl 2 mg tablet 2 mg PO QAM 30 Days Qty: 30 0RF cholecalciferol (vitamin D3) 25 mcg (1,000 unit) Tablet 25 mcg PO DAILY@1200 30 Days Qty: 30 0RF [id number] acid 18-400 mg-mcg Tablet 1 tab PO DAILY@1200 30 Days Qty: 30 0RF clindamycin HCl 300 mg capsule 300 mg PO TID Qty: 30 0RF Referrals: [facility] [place] [facility] [Provider Group] - 1 week Print Language: Jamaican
--- NOTE | 2024-05-06 08:19 | PC.NURSE ---
Pt presents from home via EMS for eval of LLQ ABD pain starting yesterday, worsening. Pt reports pain is sharp, localized to LLQ but starting to move to RLQ today. Pain is 7/10. Reports nausea and loose stools X5 days, no vomiting, fevers, cough, or trouble urinating. Does report poor PO intake. Also reports edema to bilat lower legs X1.5 weeks. Alert and oriented, breathing even and unlabored, skin warm and dry. Reports her ABD feels bloated, slightly distended. Pain worse on palpation.
--- NOTE | 2024-05-06 08:24 | ECG_ITS ---
Test Reason : abd pain Blood Pressure : / mmHG Vent. Rate : 071 BPM Atrial Rate : 071 BPM P-R Int : 192 ms QRS Dur : 080 ms QT Int : 420 ms P-R-T Axes : 075 -08 040 degrees QTc Int : 456 ms Normal sinus rhythm Normal ECG When compared with ECG of 17-NOV-2023 09:32, No significant change was found Referred By: Christian Jenkins Electronically Signed By:WILMER MONIQUE MD
[2024-05-06] MEDS: bisacodyL 5 MG TABLET.DR 10 MG PO (08:32)
[2024-05-06 08:35] LABS: MANUAL DIFF FLAG NO
[2024-05-06 08:41] LABS: Basophils Percent Auto 0.2 % (0-2); Hemoglobin 11.1 g/dl (12.0-16.0); Imm Gran Abs Auto 0.01 X10*3/uL (0.00-0.03); Imm Gran Pct Auto 0.2 % (0.0-0.4); Lymphocytes Absolute Auto 0.7 X10*3/uL (1.2-4.9); Lymphocytes Percent Auto 14.9 % (20-40); Mean Corpuscular HGB Conc 34.7 g/dl (31.0-35.0); Mean Corpuscular Hemoglobin 31.4 pg (27.0-33.0); Mean Corpuscular Volume 90.4 fL (80.0-98.0); Mean Platelet Volume 8.8 fL (9.4-12.3); Monocytes Absolute Auto 0.4 X10*3/uL (0.1-1.2); Monocytes Percent Auto 8.7 % (2-11); Neutrophils Absolute Auto 3.3 x10*3/uL (2.0-8.3); Platelet Count 177 X10*3/uL (160-400); Red Blood Count 3.54 X10*6/uL (4.20-5.50); Red Cell Distribution Width 12.7 % (11.0-16.0); White Blood Count 4.4 X10*3/uL (4.8-10.8)
[2024-05-06 08:52] LABS: Alanine Aminotransferase 21 U/L (0-31); Albumin Level 3.9 g/dL (3.5-5.0); Alkaline Phosphatase 31 U/L (39-117); Anion Gap 9 (12-20); Aspartate Amino Transferase 28 U/L (5-31); Bilirubin Total 0.4 mg/dL (0.0-1.0); Blood Urea Nitrogen 14 mg/dL (9-16); Carbon Dioxide 33 mmol/L (22-29); Chloride 110 mmol/L (96-108); Creatinine Clr Calc Pharmacy 27.5; Estimated Glomerular Filt Rate 28; Glucose Random 88 mg/dL (60-115); Lipase 68 U/L (8-78); Magnesium 1.8 mg/dL (1.6-2.6); Potassium 4.1 mmol/L (3.3-5.1); Sodium 148 mmol/L (135-145); Total Protein 6.3 g/dL (6.5-8.0)
[2024-05-06 08:57] LABS: B Type Natriuretic Peptide 20 pg/mL (<100)
[2024-05-06 08:58] LABS: Troponin-I High Sensitivity 2.8 ng/L (<3.5-17.0)
[2024-05-06 09:16] LABS: Prothrombin Time 11.7 SEC (11.1-13.3)
--- NOTE | 2024-05-06 09:23 | PC.NURSE ---
Pt refused any pain meds, reports she does not want any, feels comfortable at this time.
[2024-05-06 12:31] LABS: Appearance Urine Clear; Color Urine Yellow; Glucose Urine UA Negative (Negative); Leukocyte Esterase Urine Small (1+) (Negative); Nitrite Urine Negative (Negative); Specific Gravity - Urine <= 1.005 (1.005-1.025); UMIC TRIGGER UACC YES; Urine Blood Negative (Negative); Urine Ketones Negative (Negative); Urine Protein Negative (Neg-Trace)
[2024-05-06 12:43] LABS: Bacteria Urine None Seen (None Seen); Hyaline Casts Urine 0-2 /LPF (0-2); RBC Urine 0-2 /HPF (0-2); Squamous Epithelial Cell Urine 0-2 /HPF (0-2); UACC Culture Trigger YES; WBC Urine 0-5 /HPF (0-5)
--- NOTE | 2024-05-06 13:54 | MHC.EDTECH ---
Patient ambulated to restroom 2x, minimal assistance needed.
[2024-05-06 14:46] LABS: C Reactive Protein 0.43 mg/dL (< or = 0.50)
[2024-05-06 15:01] VITALS: BP 127/68; PULSE 84; RESP 17; TEMP 37.3; O2SAT 97
[2024-05-06 15:02] VITALS: BP 127/68; PULSE 84; RESP 17; TEMP 37.3; O2SAT 97
== END 2024-05-06 15:03 | disposition home or self-care (01) ==
PROVIDERS: Physician Assistant; Emergency Provider Emergency Medicine; PCP Family Medicine
DX: R10.32 Left lower quadrant pain (principal); K59.00 Constipation, unspecified; R60.0 Localized edema; R06.02 Shortness of breath; Z79.899 Other long term (current) drug therapy; Z87.891 Personal history of nicotine dependence
CPT/HCPCS: 36415; 74176; 80053; 81001; 83690; 83735; 83880; 84484; 85025; 85610; 86140; 87086; 93005; 93970; 99284; 99285

== ENCOUNTER → 2024-05-06 08:24 | Outpatient (BNV) | payer MEDICARE, MEDICAID, SELFPAY | PROVIDERS: Emergency Provider Student in an Organized Health Care Education/Training Program; PCP Family Medicine; Visit Provider Internal Medicine Cardiovascular Disease | DX: R10.9 Unspecified abdominal pain (principal) | CPT/HCPCS: 93010 ==

== ENCOUNTER 2024-05-16 12:26 | Emergency (ER) | payer MEDICARE, MEDICAID, SELFPAY ==
--- NOTE | ~2024-05-16 | CT_ITS ---
EXAMINATION: CT head/brain wo IV con CT cervical spine wo IV con INDICATION INFORMATION: fall head strike COMPARISON: CT head/C-spine 04/13/2024 TECHNIQUE: Separate noncontrast CT examinations of the head and cervical spine were performed. Coronal and sagittal reformats were obtained at the acquisition workstation. This CT examination was performed using dose optimization techniques as appropriate, variously including the following: * Automated exposure control * Adjustment of mA and/or kV according to patient size (this includes techniques or standardized protocols for targeted exams where dose is matched to indication/reason for exam; i.e. extremities or head) * Use of iterative reconstruction technique DLP: 1274 mGy-cm FINDINGS: HEAD: There is no evidence of acute intracranial hemorrhage or territorial infarction. [place] to white matter differentiation is well preserved. No abnormal mass effect or midline shift is seen. No extra-axial fluid collections are identified. No hydrocephalus. Stable left posterior periventricular white matter changes with associated volume loss including ventricular dilation between the left lateral ventricle. No significant volume loss. Patchy periventricular and deep white matter hypoattenuation is consistent with mild small vessel ischemic changes. The cerebellar tonsils are well positioned. No acute osseous or soft tissue abnormality. Mild hyperostosis frontalis interna. Visualized portions of the orbits are unremarkable. The mastoid air cells and visualized portions of the paranasal sinuses are well aerated. CERVICAL SPINE: No evidence of acute fracture or traumatic subluxation of the cervical spine. There is straightening of the normal cervical curvature. Mild anterolisthesis of C2 on C3 and C7 on T1. Moderate to severe stenosis of the right-sided C3-C4 neural foramina. This is patent. Mild multilevel facet arthropathy. Mild degenerative disc disease at C5-C6 and C6-C7 with loss intervertebral disc and marginal osteophytes. Otherwise, intervertebral disc spaces are maintained. Vertebral body heights are maintained. The atlantoaxial and atlantooccipital articulations are intact. Moderate atlantodental spondylosis. No prevertebral soft tissue swelling. There is no cervical lymphadenopathy. Status post thyroidectomy. The visualized lung apices are clear. CT/CT cervical spine wo IV con IMPRESSION: 1. No acute intracranial pathology. No significant change compared to 04/13/2024. 2. No acute osseous abnormality within the cervical spine. Mild degenerative changes as described above.
--- NOTE | ~2024-05-16 | XR_ITS ---
EXAMINATION: XR SACRUM AND COCCYX CLINICAL INFORMATION: Bilateral megahertz. COMPARISON: None available. TECHNIQUE: 2 views of the sacrum and 2 views of the coccyx were obtained. FINDINGS: Lateral view is underpenetrated, significantly limiting the study. No fracture is identified. No bone, joint or soft tissue abnormality is appreciated. XR/XR sacrum coccyx min 2V IMPRESSION: Findings as above.
[2024-05-16 12:32] VITALS: BP 139/78; BP 140/90; PULSE 70; PULSE 72; RESP 16; TEMP 36.8; O2SAT 99; BMI 24.3
--- NOTE | 2024-05-16 12:49 | ECG_ITS ---
Test Reason : FALL Blood Pressure : / mmHG Vent. Rate : 072 BPM Atrial Rate : 072 BPM P-R Int : 188 ms QRS Dur : 092 ms QT Int : 444 ms P-R-T Axes : 076 -04 057 degrees QTc Int : 486 ms Normal sinus rhythm Normal ECG When compared with ECG of 06-MAY-2024 08:34, No significant change was found Referred By: Generic ED Physician Electronically Signed By:WILMER MONIQUE MD
--- NOTE | 2024-05-16 13:05 | ED_ITS ---
HPI - Fall General Chief Complaint: Fall Stated Complaint: FALL,HEAD PAIN,-LOC,-THINNERS PER EMS Time Seen by Provider: 05/16/24 13:02 Source: patient and EMS Mode of arrival: EMS Limitations: no limitations History of Present Illness ED Provider: Christian Jenkins PA-C HPI Narrative: This is a 64-year-old female history of personality disorder, PTSD, bipolar disorder presenting to the emergency department with complaints of headache, dizziness neck pain, and tailbone pain after a trip and fall at home. Patient states she was bending down to get her slippers and fell backwards, striking her head on an end table. States she used her life alert and had to wait for EMS to help her get up. Denies LOC. Denies thinners. Patient reports I think one of my split personalities made me fall, I can tell when they are around. Denies SI/HI. Denies fever, chills, chest pain, SOB, weakness, numbness, tingling, seizures, syncope. Patient also complains of bilateral ankle/foot swelling. Upon chart review, patient was worked up for DVT and recieved bilateral venous duplex ultrasounds to lower extremities on 05/06/2024 which were benign. Has appointment with PCP. Related Data Previous Rx's ?Medication ?Instructions ?Recorded acetaminophen 325 mg tablet 650 mg (2 x 325 mg) PO Q6H PRN 12/02/23 Headache/Pain Mild Scale (1-3) #0 tabs ascorbic acid (vitamin C) 500 mg 1,000 mg (2 x 500 mg) PO 12/02/23 tablet DAILY@1200 30 days #30 tabs calcium carbonate 600 mg-vitamin 1 tab PO DAILY@1200 30 days #30 12/02/23 D3 5 mcg (200 unit) tablet tabs chlorpromazine 25 mg tablet 50 mg (2 x 25 mg) PO DAILY 30 days 12/02/23 #60 tabs chlorpromazine 25 mg tablet 75 mg (3 x 25 mg) PO BEDTIME 30 12/02/23 days #90 tabs cholecalciferol (vitamin D3) 25 25 mcg PO DAILY@1200 30 days #30 12/02/23 mcg (1,000 unit) tablet tabs clonazepam 0.5 mg tablet 0.25 mg (1/2 x 0.5 mg) PO TID PRN 12/02/23 Anxiety 30 days #45 tabs famotidine 20 mg tablet 20 mg PO DAILY 30 days #30 tabs 12/02/23 lamotrigine 200 mg tablet 200 mg PO DAILY 30 days #30 tabs 12/02/23 lamotrigine 25 mg tablet 50 mg (2 x 25 mg) PO BID 30 days 12/02/23 #120 tabs levothyroxine 125 mcg tablet 125 mcg PO DAILY@0600 30 days #30 12/02/23 tabs multivitamin-ferrous 1 tab PO DAILY@1200 30 days #30 12/02/23 fumarate-folic acid 18 mg-400 mcg tabs tablet simvastatin 40 mg tablet 40 mg PO BEDTIME 30 days #30 tabs 12/02/23 trazodone 50 mg tablet 50 mg PO BEDTIME PRN Insomnia 30 12/02/23 days #30 tabs trihexyphenidyl 2 mg tablet 2 mg PO QAM 30 days #30 tabs 12/02/23 ziprasidone HCl 20 mg capsule 20 mg PO BIDWM 30 days #60 caps 12/02/23 ziprasidone HCl 80 mg capsule 80 mg PO BIDWM 30 days #60 caps 12/02/23 clindamycin HCl 300 mg capsule 300 mg PO TID #30 caps 04/15/24 sennosides 8.6 mg tablet (senna) 8.6 mg PO BEDTIME #14 tabs 05/06/24 Allergies Allergy/AdvReac Type Severity Reaction Status Date / Time Penicillins [PENICILLINS] Allergy Severe HIVES Verified 05/16/24 12:34 sulfamethoxazole Allergy Severe DIARRHEA Verified 05/16/24 12:34 [From BACTRIM] trimethoprim [From BACTRIM] Allergy Severe DIARRHEA Verified 05/16/24 12:34 aripiprazole [From ABILIFY] Allergy Intermediate ATAXIA Verified 05/16/24 12:34 aspirin [ASPIRIN] Allergy Intermediate STOMACH Verified 05/16/24 12:34 CRAMPS benztropine [From COGENTIN] Allergy Intermediate CONFUSION, Verified 05/16/24 12:34 memory loss bupropion [BUPROPION] Allergy Intermediate DIZZINESS Verified 05/16/24 12:34 erythromycin base Allergy Intermediate GI UPSET Verified 05/16/24 12:34 [ERYTHROMYCIN BASE] ibuprofen [From MOTRIN] Allergy Intermediate STOMACH Verified 05/16/24 12:34 CRAMPS olanzapine [From ZYPREXA] Allergy Intermediate TONGUE Verified 05/16/24 12:34 MOVEMENTS perphenazine [From TRILAFON] Allergy Intermediate ARM AND Verified 05/16/24 12:34 LEG MOVEMENTS, FALL risperidone [From RISPERDAL] Allergy Intermediate TONGUE Verified 05/16/24 12:34 MOVEMENT milk Allergy Drowsy Verified 05/16/24 12:34 egg AdvReac Stomach Verified 05/16/24 12:34 Upset From INDERAL Allergy Intermediate WHEEZING Uncoded 04/15/24 07:14 Review of Systems 2 Review of Systems: Yes all other systems are reviewed and are negative [facility] Past Medical History Attestation statement: The following information was validated with the patient. Source: old records reviewed and nursing notes reviewed Medical History Routine medical exam CKD (chronic kidney disease), stage IV Bipolar disorder Neck pain Murmur GERD (gastroesophageal reflux disease) Hypothyroidism Irritable bowel syndrome (IBS) Hyperlipidemia Anxiety and depression Dissociative identity disorder Surgical History Hx of colonoscopy History of total thyroidectomy Social History Social History Household Members: None Household Members Other:: roommate Housing: Apartment Are you a primary cardiac care nurse to a significant other at home: No Do you presently have visiting nurse or other home services: Yes (pt has VNA for only one day prior to admission.) Comment: aware of trip hazard Patient Tobacco Use Status: Former Tobacco user Tobacco use type: Cigarette Cigarette Packs Per Day: 1 Cigarettes Per Day: 20.0 Years Smoked: 20 Smoked in Last 30 Days: No e-Cigarette/Vaping Use: Never Used Second Hand Smoke Exposure: No Use of substances other than those prescribed or required for medical reasons: No Advance Directives: No Advance Directives Information Provided: Yes service: No Sexual orientation: Did not discuss Physical Exam 2 Vital Signs: Vital Signs: Last Vital Signs Temp 97.6 F 05/16/24 14:46 Pulse 70 05/16/24 14:46 Resp 18 05/16/24 14:46 BP 134/55 L 05/16/24 14:46 Pulse Ox 96 05/16/24 14:46 O2 Del Method Room Air 05/16/24 14:46 BMI result Body Mass Index 24.3 vss Appearance: Alert.? Oriented X3.? No acute distress.? Head: +Mildly tender to palpation to back of scalp. Normocephalic, atraumatic, no step-offs or deformities Eyes: Pupils equal, round and reactive to light.? CVS: Normal heart rate and rhythm.? Pulses normal.? Respiratory: No respiratory distress.? Breath sounds normal.? Abdomen: Soft and nontender.? Skin: Skin warm and dry.? Normal skin color.? Normal skin turgor.? Extremities: 2+ pitting edema to bilateral ankles.? No calf ttp. 5/5 strength to bilateral upper and lower extremities Back: No midline tenderness, no C-spine tenderness, full range of motion, no CVA tenderness bilaterally Neuro: Oriented X 3.? No motor deficit.? No sensory deficit. CN 2-12 intact . No saddle anesthesias. Course Reevaluation(s) Reevaluation #1: CBC with leukopenia and a normocytic anemia that appears to be around her baseline. Chemistry with elevated sodium of 146 however again around patient's baseline. Chronically elevated carbon dioxide, and chronically elevated BUN and creatinine. UA without infection. Trop, EKG, CT, sacrum and coccyx xray pending Time: 14:52 Reevaluation #2: CT with no acute intracranial pathology. No significant changes compared to 2023. No acute osseous abnormality within the cervical spine. Mild degenerative changes noted. X-ray of sacrum and coccyx no fractures identified no bone, joint or soft tissue abnormality appreciated. Patient reports improvement of pain. Trop negative, ekg non ischemic. UA clean. At this time patient medically cleared. Will have patient evaluated by care team for multiple personality disorder. At this time physician observation will be initiated until patient is cleared by care team with disposition at time observation was started patient common cooperative no acute distress will continue to monitor Time: 15:46 Medications Administered Discontinued Medications Generic Name Dose Route Start Last Admin Trade Name Freq PRN Reason Stop Dose Admin Morphine Sulfate 2 mg 05/16/24 13:27 05/16/24 14:02 Morphine Sulfate 2 Mg/Ml Cartridge IVPUSH 05/16/24 13:28 Not Given ONCE ONE Protocol Medical Decision Making Medical Decision Making [facility] Narrative: 1306 64 year old female presents sp trip and fall w/ headstrike on table no loc. No thinners. Complains of headache, dizziness, neck pain, buttock pain. PE: Head: +Mildly tender to palpation to back of scalp. Normocephalic, atraumatic, no step-offs or deformities Extremities: 2+ pitting edema to bilateral ankles.? (bilateral venous duplex US done 05/06/24 and was benign) No calf ttp. 5/5 strength to bilateral upper and lower extremities Neuro: Oriented X 3.? No motor deficit.? No sensory deficit. CN 2-12 intact Differential: Hx and PE concerning for concussion. Whiplash can also be considered due to MOA. Will rule out fracture vs dislocation. Unlikely brain bleed, stroke, meningitis, encephalitis. Patient has sacral pain likely secondary to acute trauma/fall onto sacrum/coccyx region will rule out fracture dislocation. Unlikely cauda equina, epidural abscess, cord compression. Plan: Imaging, labs, care team consult Differential Diagnosis Differential Diagnoses: The differential diagnosis associated with the presentation includes Hx and PE concerning for concussion. Whiplash can also be considered due to MOA. Will rule out fracture vs dislocation. Unlikely brain bleed, stroke, meningitis, encephalitis. Patient has sacral pain likely secondary to acute trauma/fall onto sacrum/coccyx region will rule out fracture dislocation. Unlikely cauda equina, epidural abscess, cord compression. Lab Data [facility] Lab Attestation statement: I reviewed the patient's lab results. 05/16/24 13:48 05/16/24 13:48 Labs: Lab Results 05/16/24 05/16/24 Range/Units 13:48 14:26 WBC 3.7 L (4.8-10.8) X10*3/uL RBC 3.41 L (4.20-5.50) X10*6/uL Hgb 10.6 L (12.0-16.0) g/dl Hct 30.3 L (37.0-47.0) % MCV 88.9 (80.0-98.0) fL MCH 31.1 (27.0-33.0) pg MCHC 35.0 (31.0-35.0) g/dl RDW 12.9 (11.0-16.0) % Plt Count 205 (160-400) X10*3/uL MPV 8.2 L (9.4-12.3) fL Immature Gran % (Auto) 0.3 (0.0-0.4) % Neut % (Auto) 65.3 (45-73) % Lymph % (Auto) 22.8 (20-40) % [place] % (Auto) 11.3 H (2-11) % Eos % (Auto) 0.0 (0-4) % Baso % (Auto) 0.3 (0-2) % Lymph # (Auto) 0.9 L (1.2-4.9) X10*3/uL [place] # (Auto) 0.4 (0.1-1.2) X10*3/uL Eos # (Auto) 0.0 (0.0-0.4) X10*3/uL Baso # (Auto) 0.0 (0.0-0.2) X10*3/uL Abs Immat Gran (auto) 0.01 (0.00-0.03) X10*3/uL Absolute Neuts (auto) 2.4 (2.0-8.3) x10*3/uL Absolute Nucleated RBC 0.000 (0.0-0.012) X10*3/uL Nucleated RBC % (auto) 0.0 (0.0-0.2) /100WBC Sodium 146 H (135-145) mmol/L Potassium 4.2 (3.3-5.1) mmol/L Chloride 107 (96-108) mmol/L Carbon Dioxide 30 H (22-29) mmol/L Anion Gap 13 (12-20) BUN 18 H (9-16) mg/dL Creatinine 1.83 H (0.5-1.4) mg/dL Estim Creat Clear Calc 25.0 Estimated GFR 28 Random Glucose 78 (60-115) mg/dL Calcium 10.0 (8.4-10.2) mg/dL Magnesium 2.2 (1.6-2.6) mg/dL Total Bilirubin 0.4 (0.0-1.0) mg/dL AST 27 (5-31) U/L ALT 28 (0-31) U/L Alkaline Phosphatase 31 L (39-117) U/L Troponin I High Sens < 2.7 (<3.5-17.0) ng/L Total Protein 6.5 (6.5-8.0) g/dL Albumin 4.1 (3.5-5.0) g/dL Urine Color Yellow Urine Appearance Clear Urine pH 8.0 (5.0-9.0) Ur Specific [place] <= 1.005 (1.005-1.025) Urine Protein Negative (Neg-Trace) mg/dL Urine Glucose (UA) Negative (Negative) mg/dL Urine Ketones Negative (Negative) mg/dL Urine Blood Negative (Negative) Urine Nitrite Negative (Negative) Ur Leukocyte Esterase Negative (Negative) Urine Opiates Screen Not Detected (Not Detect) Ur Buprenorphine Scrn Not Detected (Not Detect) ng/mL Ur Oxycodone Screen Not Detected (Not Detect) ng/mL Urine Methadone Screen Not Detected (Not Detect) ng/mL Urine Fentanyl Screen Not Detected (Not Detect) Ur Barbiturates Screen Not Detected (Not Detect) Ur Phencyclidine Scrn Not Detected (Not Detect) Ur Amphetamines Screen Not Detected (Not Detect) U Benzodiazepines Scrn Not Detected (Not Detect) Urine Cocaine Screen Not Detected (Not Detect) U Marijuana (THC) Screen Not Detected (Not Detect) Ethyl Alcohol < 10 mg/dL Independent Interpretation I performed an independent interpretation of an: Plain X-Ray and CT Scan Radiology Impression Discussion of test interpretation with radiology: I have reviewed the radiologist's reading. External Record Review External record reviewed: Outpatient record, Prior outpatient labs, Prior outpatient radiology and Outside ED record Chronic Conditions Patient?s care impacted by: Other (PTSD, Bipolar Disorder, personality disorder in adult, CKD, GERD, hypothyroidism, IBS) Critical Care Time Critical Care Time Critical Care Time: No Discharge Plan Discharge Clinical Impression: Multiple personality disorder, Fall, Headache, Concussion, Pain in sacrum Patient Disposition: Still a Patient Prescriptions: No Action acetaminophen 325 mg Tablet 650 mg PO Q6H PRN (Reason: Headache/Pain Mild Scale (1-3)) Qty: 0 0RF trazodone 50 mg Tablet 50 mg PO BEDTIME PRN (Reason: Insomnia) 30 Days Qty: 30 0RF famotidine 20 mg Tablet 20 mg PO DAILY 30 Days Qty: 30 0RF ziprasidone HCl 80 mg capsule 80 mg PO BIDWM 30 Days Qty: 60 0RF lamotrigine 200 mg tablet 200 mg PO DAILY 30 Days Qty: 30 0RF clonazepam 0.5 mg Tablet 0.25 mg PO TID PRN (Reason: Anxiety) 30 Days Qty: 45 0RF calcium carbonate-vitamin D3 600 mg-5 mcg (200 unit) Tablet 1 tab PO DAILY@1200 30 Days Qty: 30 0RF simvastatin 40 mg tablet 40 mg PO BEDTIME 30 Days Qty: 30 0RF lamotrigine 25 mg tablet 50 mg PO BID 30 Days Qty: 120 0RF ziprasidone HCl 20 mg Capsule 20 mg PO BIDWM 30 Days Qty: 60 0RF Rx Instructions: give with food (meal/snack) ascorbic acid (vitamin C) 500 mg Tablet 1,000 mg PO DAILY@1200 30 Days Qty: 30 0RF chlorpromazine 25 mg Tablet 50 mg PO DAILY 30 Days Qty: 60 0RF chlorpromazine 25 mg Tablet 75 mg PO BEDTIME 30 Days Qty: 90 0RF levothyroxine 125 mcg Tablet 125 mcg PO DAILY@0600 30 Days Qty: 30 0RF trihexyphenidyl 2 mg tablet 2 mg PO QAM 30 Days Qty: 30 0RF cholecalciferol (vitamin D3) 25 mcg (1,000 unit) Tablet 25 mcg PO DAILY@1200 30 Days Qty: 30 0RF ywiultgeckee-mkul-lsfth acid 18-400 mg-mcg Tablet 1 tab PO DAILY@1200 30 Days Qty: 30 0RF sennosides [senna] 8.6 mg tablet 8.6 mg PO BEDTIME Qty: 14 0RF clindamycin HCl 300 mg capsule 300 mg PO TID Qty: 30 0RF Print Language: Mongolian
[2024-05-16 13:52] LABS: MANUAL DIFF FLAG NO
[2024-05-16 13:53] LABS: Basophils Percent Auto 0.3 % (0-2); Hematocrit 30.3 % (37.0-47.0); Hemoglobin 10.6 g/dl (12.0-16.0); Imm Gran Abs Auto 0.01 X10*3/uL (0.00-0.03); Imm Gran Pct Auto 0.3 % (0.0-0.4); Lymphocytes Absolute Auto 0.9 X10*3/uL (1.2-4.9); Lymphocytes Percent Auto 22.8 % (20-40); Mean Corpuscular Hemoglobin 31.1 pg (27.0-33.0); Mean Corpuscular Volume 88.9 fL (80.0-98.0); Mean Platelet Volume 8.2 fL (9.4-12.3); Monocytes Absolute Auto 0.4 X10*3/uL (0.1-1.2); Monocytes Percent Auto 11.3 % (2-11); Neutrophils Absolute Auto 2.4 x10*3/uL (2.0-8.3); Neutrophils Percent Auto 65.3 % (45-73); Platelet Count 205 X10*3/uL (160-400); Red Blood Count 3.41 X10*6/uL (4.20-5.50); Red Cell Distribution Width 12.9 % (11.0-16.0); White Blood Count 3.7 X10*3/uL (4.8-10.8)
[2024-05-16 14:08] LABS: Alanine Aminotransferase 28 U/L (0-31); Albumin Level 4.1 g/dL (3.5-5.0); Alkaline Phosphatase 31 U/L (39-117); Anion Gap 13 (12-20); Aspartate Amino Transferase 27 U/L (5-31); Bilirubin Total 0.4 mg/dL (0.0-1.0); Blood Urea Nitrogen 18 mg/dL (9-16); Carbon Dioxide 30 mmol/L (22-29); Chloride 107 mmol/L (96-108); Estimated Glomerular Filt Rate 28; Ethanol < 10 mg/dL; Glucose Random 78 mg/dL (60-115); Magnesium 2.2 mg/dL (1.6-2.6); Potassium 4.2 mmol/L (3.3-5.1); Sodium 146 mmol/L (135-145); Total Protein 6.5 g/dL (6.5-8.0)
[2024-05-16 14:39] LABS: Appearance Urine Clear; Color Urine Yellow; Glucose Urine UA Negative (Negative); Leukocyte Esterase Urine Negative (Negative); Nitrite Urine Negative (Negative); Specific Gravity - Urine <= 1.005 (1.005-1.025); Urine Blood Negative (Negative); Urine Ketones Negative (Negative); Urine Protein Negative (Neg-Trace)
[2024-05-16 14:46] VITALS: BP 134/55; PULSE 70; RESP 18; TEMP 36.4; O2SAT 96
[2024-05-16 14:54] LABS: Amphetamine Screen Urine Not Detected (Not Detect); Barbiturates, Urine Not Detected (Not Detect); Benzodiazepines Screen Urine Not Detected (Not Detect); Buprenorphine Scr Not Detected (Not Detect); Cannabinoid Screen Urine Not Detected (Not Detect); Cocaine Screen Urine Not Detected (Not Detect); Fentanyl, urine Not Detected (Not Detect); Methadone Screen, Urine Not Detected (Not Detect); Opiate Screen Urine Not Detected (Not Detect); Oxycodone Screen Urine Not Detected (Not Detect); Phencyclidine Screen Urine Not Detected (Not Detect)
[2024-05-16 15:31] LABS: Troponin-I High Sensitivity < 2.7 ng/L (<3.5-17.0)
[2024-05-16 18:07] VITALS: BP 134/73; PULSE 66; RESP 18; TEMP 36.7; O2SAT 98
--- NOTE | 2024-05-16 20:23 | PC.NURSE ---
RE; med rec This RN completed med rec with medical record and then speaking with patient
[2024-05-16] MEDS: chlorproMAZINE HCl 25 MG TABLET 75 MG PO (21:39)
[2024-05-16] MEDS: Atorvastatin Calcium 20 MG TABLET PO (21:39)
[2024-05-16] MEDS: lamoTRIgine 25 MG TABLET PO (21:40)
[2024-05-16] MEDS: lamoTRIgine 100 MG TABLET 200 MG PO (21:40)
--- NOTE | 2024-05-16 22:52 | PC.NURSE ---
pt medicated per JAN- pt calm and cooperative awaiting CARE team eval, PRN clonazepam given for anxiety. call mccoy within reach-
--- NOTE | 2024-05-16 23:28 | PC.NURSE ---
assumed care of patient at 2300. report received from Ny HERMAN
--- NOTE | 2024-05-16 23:29 | PC.NURSE ---
assumed care of patient at 2300. report received from Ny
--- NOTE | 2024-05-16 23:50 | PC.NURSE ---
introduced self to patient, pt changed over into hospital attire, resting comfortably on stretcher in no apparent distress, offers no current complaints. call mccoy within reach - pending care team eval in AM.
[2024-05-17 03:09] VITALS: BP 128/62; PULSE 61; RESP 17; O2SAT 98
[2024-05-17] MEDS: Levothyroxine Sodium 125 MCG TABLET PO (06:11)
[2024-05-17] MEDS: Omeprazole 20 MG CAPSULE.DR PO (07:30)
[2024-05-17 07:55] VITALS: BP 118/63; PULSE 78; RESP 17; O2SAT 97
--- NOTE | 2024-05-17 09:36 | PC.NURSE ---
call placed to pharmacy for medications. met with care team. eating breakfast
[2024-05-17] MEDS: chlorproMAZINE HCl 25 MG TABLET 50 MG PO (09:40)
[2024-05-17] MEDS: Ziprasidone 20 MG CAPSULE PO ×2 (09:40→17:32)
[2024-05-17] MEDS: lamoTRIgine 25 MG TABLET PO ×2 (09:40→20:52)
[2024-05-17] MEDS: Ziprasidone 80 MG CAPSULE PO ×2 (09:40→17:32)
[2024-05-17] MEDS: Trihexyphenidyl HCL 2 MG TABLET PO (09:40)
[2024-05-17 14:11] LABS: COVID-19 Test Negative (Negative); IDNOW Serial# 152EDE1D
[2024-05-17 14:33] VITALS: BP 117/58; PULSE 73; RESP 15; TEMP 36.7; O2SAT 98
--- NOTE | 2024-05-17 15:24 | PC.NURSE ---
patient provided with sandwich and feroz ramon, continues to await pt/cm
[2024-05-17] MEDS: Famotidine 20 MG TABLET 40 MG PO (17:32)
--- NOTE | 2024-05-17 20:37 | MHC.CM.ED ---
CM met with patient at the request of Nilda DOVER. Pt has a long standing psych hx with many [facility], [place] [facility] [place]Pt was evaluated by the CARE TEAM and has been cleared. Pt has many outpatient supports, including a therapist, psychiatrist, [facility] case consultant, [facility] for daily meds at noon and [facility] through [facility] for BORDER PATROL OFFICER/grocery shopping and companionship 8 hours a week (4 on Friday and 4 on Friday). Pt also gets MOW. Pt was able to tell CM about her supports. See CARE TEAM assessment for providers and contact information. Pt has a sister, Daniel Llanos ([phone]) and a friend Damian Lyle ([phone]) who also provide supports. Patient has fallen 4 times in the past 2 months. She has drop head syndrome. Pt lives alone in the same apartment for the past 25 years. She uses no DME. Her PCP is Lino Parker. CM discussed completing a HCP. Patient is unsure who she would ask, probably her sister and friend, Damian, but remains unsure. Will address again with her. Pt is aware that PT is recommending STR. Pt has medicare and Medicaid. Local referrals will be made. Patient will need a level 2 once facility is determined. CM will follow for discharge planning.
[2024-05-17] MEDS: chlorproMAZINE HCl 25 MG TABLET 75 MG PO (20:52)
[2024-05-17] MEDS: lamoTRIgine 100 MG TABLET 200 MG PO (20:52)
[2024-05-17] MEDS: Atorvastatin Calcium 20 MG TABLET PO (20:52)
--- NOTE | 2024-05-17 20:58 | PC.NURSE ---
pt ate 25% of dinner, medicated per MAR. resting comfortably at this time, no needs or complaints
[2024-05-17 23:35] VITALS: BP 109/55; PULSE 74; RESP 16; TEMP 36.4; O2SAT 98
--- NOTE | 2024-05-17 23:59 | MHC.EDTECH ---
THIS PCT ASSUMED CARE OF PATIENT AT 2300 ,VITALS TAKEN AND PATIENT BELONGING LIST DONE ,PATIENT WAS ASSISTED UNTO BEDSIDE COMMODE VOID AND WAS ASSISTED BACK TO BED .
--- NOTE | 2024-05-18 01:53 | PC.NURSE ---
assist pt to commode, BM at this time
[2024-05-18] MEDS: Levothyroxine Sodium 125 MCG TABLET PO (06:06)
--- NOTE | 2024-05-18 06:17 | PC.NURSE ---
pt asked that we take her phone needle polisher away from her. states at home she has it hidden away in a drawer so she doesn't see it and want to choke herself. pt denies SI i am not at risk right now, but i do it as a precaution at home . phone needle polisher labeled and placed in chart folder per her request, but doesn't feel the same worry with call mccoy cord. provider Marc DOVER aware. curtain left open for safety. pt calm and cooperative with care, no pain or needs at this time. commode at bedside
[2024-05-18 06:19] VITALS: BP 120/69; PULSE 70; RESP 16; TEMP 36.9; O2SAT 98
--- NOTE | 2024-05-18 06:27 | MHC.EDTECH ---
Patient did not slept much ,was awake most of the night ,Got up 4 times to use bedside commode ,void each time ,no apparent distress noted ,Call mccoy within Patient reach .
[2024-05-18] MEDS: Omeprazole 20 MG CAPSULE.DR PO (06:37)
[2024-05-18] MEDS: Trihexyphenidyl HCL 2 MG TABLET PO (09:37)
[2024-05-18] MEDS: Ziprasidone 80 MG CAPSULE PO ×2 (09:37→18:50)
[2024-05-18] MEDS: chlorproMAZINE HCl 25 MG TABLET 50 MG PO (09:37)
[2024-05-18] MEDS: Ziprasidone 20 MG CAPSULE PO ×2 (09:37→18:50)
[2024-05-18] MEDS: lamoTRIgine 25 MG TABLET PO ×2 (09:37→21:00)
[2024-05-18 14:00] VITALS: BP 122/75; PULSE 78; RESP 18; TEMP 36.8; O2SAT 98
[2024-05-18] MEDS: Famotidine 20 MG TABLET 40 MG PO (17:05)
[2024-05-18] MEDS: Acetaminophen 325 MG TABLET 650 MG PO (17:05)
--- NOTE | 2024-05-18 18:02 | PC.NURSE ---
report given to overflow RN
[2024-05-18 18:16] VITALS: BP 136/62; PULSE 72; RESP 18; TEMP 37.2; O2SAT 98
[2024-05-18 19:37] VITALS: BP 141/65; PULSE 89; O2SAT 99
[2024-05-18] MEDS: chlorproMAZINE HCl 25 MG TABLET 75 MG PO (21:00)
[2024-05-18] MEDS: Atorvastatin Calcium 20 MG TABLET PO (21:00)
[2024-05-18] MEDS: lamoTRIgine 100 MG TABLET 200 MG PO (21:00)
[2024-05-19] MEDS: Omeprazole 20 MG CAPSULE.DR PO (05:56)
[2024-05-19] MEDS: Levothyroxine Sodium 125 MCG TABLET PO (05:56)
[2024-05-19 06:00] VITALS: BP 144/71; PULSE 85; RESP 16; TEMP 36.8; O2SAT 97
[2024-05-19 08:33] VITALS: BP 114/58; PULSE 74; RESP 12; TEMP 37; O2SAT 99
[2024-05-19] MEDS: lamoTRIgine 25 MG TABLET PO ×2 (08:35→20:18)
[2024-05-19] MEDS: Ziprasidone 80 MG CAPSULE PO ×2 (08:35→17:56)
[2024-05-19] MEDS: Ziprasidone 20 MG CAPSULE PO ×2 (08:35→17:56)
[2024-05-19] MEDS: chlorproMAZINE HCl 25 MG TABLET 50 MG PO (08:35)
[2024-05-19] MEDS: Trihexyphenidyl HCL 2 MG TABLET PO (08:35)
--- NOTE | 2024-05-19 09:14 | PC.NURSE ---
patient resting quietly in hospital bed, respirations equal and unlabored. patient is awake, alert and oriented. patient medicated per MAR, takes meds with pudding. VSS
--- NOTE | 2024-05-19 09:36 | MHC.CM.ED ---
Patient remains in ER overflow. PT rec STR. No bed offers at this time. Referral broadcasted within 50 miles. [facility] PASRR Level 2 already obtained. Continue to monitor for d/c needs.
--- NOTE | 2024-05-19 09:37 | PC.NURSE ---
patient ambulated with 1 assist to the bathroom, steady gait, did ADLS on own in bathroom
--- NOTE | 2024-05-19 10:58 | PC.NURSE ---
patient stated she was having anxiety, requested prn medication. patient medicated per MAR
[2024-05-19 13:48] VITALS: BP 119/58; PULSE 82; RESP 18; TEMP 37.2; O2SAT 98
--- NOTE | 2024-05-19 13:54 | PC.NURSE ---
ASSUMED CARE OF PT THIS AM. NO ISSUES TODAY, IN NAD. SHE IS GETTING UP AND USING THE BATHROOM INDEPENDENTLY. ATE MOST OF HER LUNCH TODAY. ENCOURAGED TO USE RECLINER FOR A LITTLE WHILE. PHARMACY HERE FOR MED CLARIFICATION.
--- NOTE | 2024-05-19 13:56 | PHA.MEDREC ---
Pharmacy Consult ? Medication Reconciliation Pharmacy has completed the medication reconciliation. spoke with patient to confirm medications. She takes clonazepam prn, famotidine is 1 tablet every evening, and she confirmed her lamotrigine dosing. Used list from [facility] Dudley.
[2024-05-19 20:15] VITALS: BP 103/62; PULSE 77; RESP 16; TEMP 37.3; O2SAT 96
[2024-05-19] MEDS: chlorproMAZINE HCl 25 MG TABLET 75 MG PO (20:18)
[2024-05-19] MEDS: Atorvastatin Calcium 20 MG TABLET PO (20:19)
[2024-05-19] MEDS: lamoTRIgine 100 MG TABLET 200 MG PO (20:19)
--- NOTE | 2024-05-19 21:02 | PC.NURSE ---
PT AMBULATING TO BATHROOM WITH MINIMAL ASSISTANCE. CONTINUES TO DENY ANY PAIN. PT HAD A LARGE BM TODAY, VOIDING WITH NO ISSUE. ANXIOUS ABOUT DISTANCED STR PLACEMENT.
--- NOTE | 2024-05-19 22:22 | MHC.EDTECH ---
Patient in recliner most of shift with feet elevated resting quietly. walks 1 assist without devices to the bathroom however it should be noted that she can be unsteady at times. she is able to perform adls independently and brushed her teeth before bed. The patients purse and keeper head were placed in a belonging bag and kept at the nursing station because she quote feels safe with them placed there instead of at bedside. Rn aware and belongings were labeled.
[2024-05-20 04:48] VITALS: BP 142/81; PULSE 62; RESP 16; TEMP 37.1; O2SAT 98
--- NOTE | 2024-05-20 04:49 | MHC.EDTECH ---
Patient awake ,rang to use bathroom ,was assisted with ambulation ,void ,Patient was assisted back into bed ,fresh water given and vitals taken ,Call mccoy within Pt reach .
[2024-05-20] MEDS: Levothyroxine Sodium 125 MCG TABLET PO (06:06)
[2024-05-20] MEDS: Omeprazole 20 MG CAPSULE.DR PO (06:06)
[2024-05-20] MEDS: Ziprasidone 80 MG CAPSULE PO ×2 (09:04→17:30)
[2024-05-20] MEDS: Cholecalciferol (Vitamin D3) 25 MCG TABLET PO (09:04)
[2024-05-20] MEDS: Ascorbic Acid 500 MG TABLET 1000 MG PO (09:04)
[2024-05-20] MEDS: Trihexyphenidyl HCL 2 MG TABLET PO (09:04)
[2024-05-20] MEDS: Multivitamin TABLET 1 TAB PO (09:04)
[2024-05-20] MEDS: Calcium Oyster Shell Elemental 500 MG TABLET PO (09:04)
[2024-05-20] MEDS: Ziprasidone 20 MG CAPSULE PO ×2 (09:04→17:30)
[2024-05-20] MEDS: lamoTRIgine 25 MG TABLET PO ×2 (09:05→21:17)
[2024-05-20] MEDS: chlorproMAZINE HCl 25 MG TABLET 50 MG PO (09:29)
--- NOTE | 2024-05-20 10:55 | MHC.CM.ED ---
Patient remains in ER overflow. [facility] is able to offer a bed. Patient does not want to go that far and feels she can safely return home with [facility] WARD. T/W spoke with Marcie at Dr Parker's office. Marcie will assist with transitioning patient to outpatient physical therapy. [facility] WARD made aware physical therapy will need to be added to services. Patient will return home via chair van. Patient, Chelsie RN and Chiquis DOVER aware. Patient's sister, Carolina, requested an updated from Case Management. Patient states she will call Carolina herself to give her an update. Continue to monitor for d/c needs.
[2024-05-20 20:06] VITALS: BP 122/64; PULSE 82; RESP 18; TEMP 37.3; O2SAT 97
--- NOTE | 2024-05-20 21:08 | MHC.CM.ED ---
X[facility] Jamison booked for 05/21 @ 9am to return home.. Med nec/face sheet and ED worksheet to ED accredited legal secretary.
[2024-05-20] MEDS: Acetaminophen 325 MG TABLET 650 MG PO (21:16)
[2024-05-20] MEDS: chlorproMAZINE HCl 25 MG TABLET 75 MG PO (21:16)
[2024-05-20] MEDS: lamoTRIgine 100 MG TABLET 200 MG PO (21:16)
[2024-05-20] MEDS: Atorvastatin Calcium 20 MG TABLET PO (21:17)
[2024-05-21 06:11] VITALS: BP 124/69; PULSE 82; RESP 16; TEMP 36.5; O2SAT 98
[2024-05-21] MEDS: Omeprazole 20 MG CAPSULE.DR PO (06:29)
[2024-05-21] MEDS: Levothyroxine Sodium 125 MCG TABLET PO (07:06)
[2024-05-21] MEDS: lamoTRIgine 25 MG TABLET PO (08:35)
[2024-05-21] MEDS: Multivitamin TABLET 1 TAB PO (08:35)
[2024-05-21] MEDS: Calcium Oyster Shell Elemental 500 MG TABLET PO (08:35)
[2024-05-21] MEDS: Cholecalciferol (Vitamin D3) 25 MCG TABLET PO (08:35)
[2024-05-21] MEDS: Ziprasidone 80 MG CAPSULE PO (08:36)
[2024-05-21] MEDS: Trihexyphenidyl HCL 2 MG TABLET PO (08:36)
[2024-05-21] MEDS: chlorproMAZINE HCl 25 MG TABLET 50 MG PO (08:36)
[2024-05-21 09:34] VITALS: BP 130/77; PULSE 65; RESP 16; TEMP 36.8
== END 2024-05-21 09:36 | disposition home health service (06) ==
PROVIDERS: Emergency Medicine; Physician Assistant; Emergency Provider Emergency Medicine Emergency Medical Services; PCP Family Medicine
DX: S06.0X0A Concussion without loss of consciousness, initial encounter (principal); M53.3 Sacrococcygeal disorders, not elsewhere classified; F44.81 Dissociative identity disorder; N18.4 Chronic kidney disease, stage 4 (severe); W01.190A Fall on same level from slipping, tripping and stumbling with subsequent striking against furniture, initial encounter; Y93.9 Activity, unspecified; Y92.9 Unspecified place or not applicable; Y99.9 Unspecified external cause status; Z11.52 Encounter for screening for COVID-19
CPT/HCPCS: 36415; 70450; 72125; 72220; 80053; 80307; 81003; 83735; 84484; 85025; 87635; 93005; 97162; 99285; S9485

== ENCOUNTER → 2024-05-16 12:49 | Outpatient (BNV) | payer MEDICARE, MEDICAID, SELFPAY | PROVIDERS: Emergency Provider Emergency Medicine Emergency Medical Services; PCP Family Medicine; Visit Provider Internal Medicine Cardiovascular Disease | DX: R42 Dizziness and giddiness (principal); R51.9 Headache, unspecified | CPT/HCPCS: 93010 ==

== ENCOUNTER 2024-08-10 09:52 | Outpatient (REF) | payer MEDICARE, MEDICAID, SELFPAY ==
[2024-08-10 13:11] LABS: MANUAL DIFF FLAG NO
[2024-08-10 13:17] LABS: Basophils Percent Auto 0.4 % (0-2); Hematocrit 35.5 % (37.0-47.0); Imm Gran Abs Auto 0.01 X10*3/uL (0.00-0.03); Imm Gran Pct Auto 0.2 % (0.0-0.4); Immature Retic Fraction 9.3 % (3.0-15.9); Lymphocytes Absolute Auto 0.7 X10*3/uL (1.2-4.9); Lymphocytes Percent Auto 13.9 % (20-40); Mean Corpuscular HGB Conc 33.8 g/dl (31.0-35.0); Mean Corpuscular Hemoglobin 30.8 pg (27.0-33.0); Mean Platelet Volume 9.3 fL (9.4-12.3); Monocytes Absolute Auto 0.3 X10*3/uL (0.1-1.2); Monocytes Percent Auto 6.3 % (2-11); Neutrophils Percent Auto 79.2 % (45-73); Platelet Count 183 X10*3/uL (160-400); Red Cell Distribution Width 12.4 % (11.0-16.0); Retic HGB Equivalent 35.3 pg (30.0-35.0); Reticulocyte Percent 1.3 % (0.5-1.8); Reticulocytes Absolute 0.052 X10*6/uL (0.026-0.095); White Blood Count 5.1 X10*3/uL (4.8-10.8)
[2024-08-10 13:42] LABS: Iron 86 mcg/dL (30-160); Percent Iron Saturation 36 % (15-50); Total Iron Binding Capacity 236 mcg/dL (228-428); Unsaturated Iron Binding 150 ug/dL
[2024-08-10 13:46] LABS: Ferritin 78 ng/mL (10-250); Thyroid Stimulating Hormone 0.03 uIU/mL (0.32-4.0)
[2024-08-10 13:51] LABS: Erythrocyte Sedimentation Rate 13 MM/HR (0-20)
[2024-08-10 13:57] LABS: Folate 16.2 ng/mL (> or = 4.0); Vitamin B12 1359 pg/mL (200-900)
== END 2024-08-10 09:53 | disposition home or self-care (01) ==
LOC: HO.HMGCLDS 09:52
PROVIDERS: PCP Family Medicine; Visit Provider Family Medicine
DX: D64.9 Anemia, unspecified (principal); R53.1 Weakness
CPT/HCPCS: 36415; 82607; 82728; 82746; 83540; 84443; 85025; 85045; 85652

== ENCOUNTER 2024-10-17 13:31 | Emergency (ER) | payer MEDICARE, MEDICAID, SELFPAY ==
[2024-10-17 13:40] VITALS: BP 136/78; PULSE 85; O2SAT 92
[2024-10-17 13:44] VITALS: BP 146/82; PULSE 89; RESP 18; TEMP 36.4; O2SAT 100; BMI 24.4
--- NOTE | 2024-10-17 14:29 | ED_ITS ---
HPI - General Adult General Chief complaint: Dental/Oral Stated complaint: BROKE A TOOTH, BIT TONGUE PER EMS Time Seen by Provider: 10/17/24 14:24 Source: patient Mode of arrival: ambulatory Limitations: no limitations History of Present Illness ED Provider: Alexa HPI narrative: Patient is a 64-year-old female with history of PTSD, bipolar disorder presenting to the emergency department with complaint of bleeding from tongue after breaking her dental bridge while eating tortilla chips. She applied gauze prior to arrival in the bleeding is controlled. She is not anticoagulated. She feels there is a sharp area where her bridge broke. Did not attempt to call her dentist today. Denies any difficulty swallowing. MD complaint: tongue laceration Onset (ago): hour(s) Location: mouth Treatments prior to arrival: other (dressing) Related Data Home Medications ?Medication ?Instructions ?Recorded ?Confirmed clonazepam 0.25 mg disintegrating 0.25 mg PO TID PRN anxiety 05/16/24 05/16/24 tablet famotidine 20 mg tablet 20 mg PO BEDTIME Acid Reflux 05/16/24 05/19/24 lamotrigine 200 mg tablet 200 mg PO BEDTIME 05/16/24 05/16/24 lamotrigine 25 mg tablet 50 mg PO BID 05/16/24 05/19/24 omeprazole 20 mg capsule,delayed 20 mg PO DAILY 05/16/24 05/16/24 release ascorbic acid (vitamin C) 1,000 mg 1,000 mg PO DAILY 05/19/24 05/19/24 tablet (Vitamin C) calcium carbonate 600 mg PO DAILY 05/19/24 05/19/24 cholecalciferol (vitamin D3) 25 25 mcg PO DAILY 05/19/24 05/19/24 mcg (1,000 unit) capsule (Vitamin D3) coenzyme Q10 100 mg capsule 100 mg PO DAILY 05/19/24 05/19/24 (CoQ-10) [id number]-[id number] 8 mg-folic 400 1 tab PO DAILY 05/19/24 05/19/24 mcg-K 50 mcg-lutein 300 mcg tablet (Centrum Silver Women) Previous Rx's ?Medication ?Instructions ?Recorded chlorpromazine 25 mg tablet 50 mg (2 x 25 mg) PO DAILY 30 days 12/02/23 #60 tabs chlorpromazine 25 mg tablet 75 mg (3 x 25 mg) PO BEDTIME 30 12/02/23 days #90 tabs levothyroxine 125 mcg tablet 125 mcg PO DAILY@0600 30 days #30 12/02/23 tabs simvastatin 40 mg tablet 40 mg PO BEDTIME 30 days #30 tabs 12/02/23 trazodone 50 mg tablet 50 mg PO BEDTIME PRN Insomnia 30 12/02/23 days #30 tabs trihexyphenidyl 2 mg tablet 2 mg PO QAM 30 days #30 tabs 12/02/23 ziprasidone HCl 20 mg capsule 20 mg PO BIDWM 30 days #60 caps 12/02/23 ziprasidone HCl 80 mg capsule 80 mg PO BIDWM 30 days #60 caps 12/02/23 Allergies Allergy/AdvReac Type Severity Reaction Status Date / Time Penicillins [PENICILLINS] Allergy Severe HIVES Verified 10/17/24 13:50 sulfamethoxazole Allergy Severe DIARRHEA Verified 10/17/24 13:50 [From BACTRIM] trimethoprim [From BACTRIM] Allergy Severe DIARRHEA Verified 10/17/24 13:50 aripiprazole [From ABILIFY] Allergy Intermediate ATAXIA Verified 10/17/24 13:50 aspirin [ASPIRIN] Allergy Intermediate STOMACH Verified 10/17/24 13:50 CRAMPS benztropine [From COGENTIN] Allergy Intermediate CONFUSION, Verified 10/17/24 13:50 memory loss bupropion [BUPROPION] Allergy Intermediate DIZZINESS Verified 10/17/24 13:50 erythromycin base Allergy Intermediate GI UPSET Verified 10/17/24 13:50 [ERYTHROMYCIN BASE] ibuprofen [From MOTRIN] Allergy Intermediate STOMACH Verified 10/17/24 13:50 CRAMPS olanzapine [From ZYPREXA] Allergy Intermediate TONGUE Verified 10/17/24 13:50 MOVEMENTS perphenazine [From TRILAFON] Allergy Intermediate ARM AND Verified 10/17/24 13:50 LEG MOVEMENTS, FALL risperidone [From RISPERDAL] Allergy Intermediate TONGUE Verified 10/17/24 13:50 MOVEMENT milk Allergy Drowsy Verified 10/17/24 13:50 egg AdvReac Stomach Verified 10/17/24 13:50 Upset From INDERAL Allergy Intermediate WHEEZING Uncoded 04/15/24 07:14 Review of Systems 2 Review of Systems: As per HPI Yes all other systems are reviewed and are negative Constitutional: Constitutional: Reports as per HPI PMFSH Past Medical History Medical History Routine medical exam CKD (chronic kidney disease), stage IV Bipolar disorder Neck pain Murmur GERD (gastroesophageal reflux disease) Hypothyroidism Irritable bowel syndrome (IBS) Hyperlipidemia Anxiety and depression Dissociative identity disorder Surgical History Hx of colonoscopy History of total thyroidectomy Social History Social History Household Members: None Household Members Other:: roommate Housing: Apartment Are you a primary child day care center worker to a significant other at home: No Do you presently have visiting nurse or other home services: Yes (pt has VNA for only one day prior to admission.) Comment: aware of trip hazard Patient Tobacco Use Status: Former Tobacco user Tobacco use type: Cigarette Cigarette Packs Per Day: 1 Cigarettes Per Day: 20.0 Years Smoked: 20 e-Cigarette/Vaping Use: Never Used Second Hand Smoke Exposure: No Advance Directives: No Advance Directives Information Provided: Yes Do you have a plan to hurt others: No Plan service: No Sexual orientation: Did not discuss Physical Exam ED Vital Signs: Vital Signs - 24 hr 10/17/24 13:44 Temperature 97.5 F Pulse Rate 89 Respiratory Rate 18 Blood Pressure 146/82 H Pulse Oximetry 100 Oxygen Delivery Method Room Air BMI result Body Mass Index 24.4 Vital signs have been reviewed and appear to be correct. Blood pressure normal. Heart rate normal. Respiratory rate normal. Temperature normal. Oxygen saturation normal. Const General: cooperative, healthy appearing and no acute distress Orientation/consciousness: oriented to person, oriented to place, oriented to time and patient oriented x3 Limitations: no limitations HENMT Head: Yes normocephalic and Yes atraumatic Ears: external ears normal General nose exam: Normal external nose present Face and sinus: Yes face symmetric Mouth: lip normal, oropharynx normal, moist mucous membranes, no drooling and tongue abnormal (5mm laceration to ventral surface of tongue on right side, no bleeding) Teeth image: 2 1. silver colored piece of bridge with irregular edges Throat: Yes uvula midline Eyes Pupils: Equal, round and reactive pupils present Neck Neck: Yes normal visual inspection and Yes supple Resp Effort & Inspection: normal respiratory effort and able to speak in complete sentences Auscultation: clear to auscultation bilaterally Cardio Rate: regular rate Rhythm: regular rhythm Heart sounds: S1 normal heart sound present and S2 normal heart sound present GI Palpation (GI): Soft to palpation and nontender Auscultation: normoactive bowel sounds General: Yes no CVA tenderness Back/Spine/Pelvis Back: no CVA tenderness Skin General skin exam: elasticity normal and turgor normal Neuro General: oriented to person, oriented to place, oriented to time, patient oriented x3, moves all extremities, no focal motor deficits and CN's II-XI intact bilaterally Cranial nerves: Yes Equal, round and reactive pupils present Cognition (Neuro): normal cognition Extrem General: Yes full ROM, Yes no pedal edema and Yes no calf tenderness Psych Mental Status: mental status grossly normal Affect: normal affect Thought process: Normal thought process present Medical Decision Making Medical Decision Making [facility] Narrative: Patient is a 64-year-old female with history of PTSD, bipolar disorder presenting to the emergency department with complaint of bleeding from tongue after breaking her dental bridge while eating tortilla chips. On exam patient is awake, A+Ox3, VS WNL, afebrile, normal neurological exam without focal deficits, physical exam findings as above. Given reported symptoms and physical exam findings, initial differential includes tongue abrasion versus laceration. Minor laceration noted. No active bleeding. No additional bleeding while patient observed in the ED. Piece of bridge noted to have irregular edges. Recommend patient call her dentist 1st thing in the morning to discuss repair of the bridge. Advised patient to eat soft foods for the next several days and avoid chewing on the right side of her mouth. If bleeding reoccurs, apply gauze, return for uncontrolled bleeding. Follow up with PCP. Differential Diagnosis Differential Diagnoses: The differential diagnosis associated with the presentation includes As per MDM Independent Historian Clinical information obtained from an independent historian. History obtained from or confirmed by: Other (sister) External Record Review External record reviewed: Inpatient record, Office record and Outpatient record Discharge Plan Discharge Clinical Impression: Laceration of tongue without complication Patient Disposition: Home, Self-Care Additional Instructions: You were evaluated in the emergency department today for a laceration under your tongue due to a broken dental bridge. The bleeding is controlled and the wound does not require stitches. If the area starts to bleed again, we recommend holding gauze to the area for at least 10 minutes. Avoid any hard or crunchy foods for the next 3-4 days. We also recommend eating soft foods and cutting your food into very small pieces and chewing on the left side of your mouth. Call your dentist in the morning for an appointment. We are also providing you with a list of dental clinics in the area if this is something your dentist is unable to repair. Return to the emergency department if your tongue begins to bleed again and you are unable to control the bleeding. We also recommend that you assess your tongue at least once daily in the mirror for any signs of new redness, swelling or thick yellow drainage and return to the emergency department if this occurs. Call or visit any of the clinics below to establish care with a dentist: [facility] [address] [place] [address] [facility] [address] [facility], [address] [address] [place] [address] [facility] [address] [address] [facility] [address] [place] [address] [place] [address] [place] [address] Prescriptions: No Action trazodone 50 mg Tablet 50 mg PO BEDTIME PRN (Reason: Insomnia) 30 Days Qty: 30 0RF ziprasidone HCl 80 mg capsule 80 mg PO BIDWM 30 Days Qty: 60 0RF simvastatin 40 mg tablet 40 mg PO BEDTIME 30 Days Qty: 30 0RF ziprasidone HCl 20 mg Capsule 20 mg PO BIDWM 30 Days Qty: 60 0RF Rx Instructions: give with food (meal/snack) chlorpromazine 25 mg Tablet 50 mg PO DAILY 30 Days Qty: 60 0RF chlorpromazine 25 mg Tablet 75 mg PO BEDTIME 30 Days Qty: 90 0RF levothyroxine 125 mcg Tablet 125 mcg PO DAILY@0600 30 Days Qty: 30 0RF trihexyphenidyl 2 mg tablet 2 mg PO QAM 30 Days Qty: 30 0RF lamotrigine 25 mg tablet 50 mg PO BID famotidine 20 mg tablet 20 mg PO BEDTIME omeprazole 20 mg capsule,delayed release(DR/EC) 20 mg PO DAILY lamotrigine 200 mg tablet 200 mg PO BEDTIME clonazepam 0.25 mg tablet,disintegrating 0.25 mg PO TID PRN (Reason: anxiety) ascorbic acid (vitamin C) [Vitamin C] 1,000 mg Tablet 1,000 mg PO DAILY calcium carbonate 600 mg calcium (1,500 mg) Tablet 600 mg PO DAILY cholecalciferol (vitamin D3) [Vitamin D3] 25 mcg (1,000 unit) Capsule 25 mcg PO DAILY coenzyme Q10 [CoQ-10] 100 mg Capsule 100 mg PO DAILY Centrum Silver Women 8 mg iron-400 mcg-50 mcg Tablet 1 tab PO DAILY Interventions: ED Discharge Assessment Last Done: 10/17/24 16:29 Print Language: Bhutanese
[2024-10-17 16:29] VITALS: BP 146/82; PULSE 89; RESP 18; TEMP 36.4; O2SAT 100
== END 2024-10-17 16:29 | disposition home or self-care (01) ==
PROVIDERS: Emergency Provider Emergency Medicine; PCP Family Medicine
DX: S00.512A Abrasion of oral cavity, initial encounter (principal); X58.XXXA Exposure to other specified factors, initial encounter; Y93.89 Activity, other specified; Y92.89 Other specified places as the place of occurrence of the external cause; Y99.8 Other external cause status
CPT/HCPCS: 99282

== ENCOUNTER 2024-10-17 19:17 | Emergency (ER) | payer MEDICARE, MEDICAID, SELFPAY ==
[2024-10-17 19:22] VITALS: BP 142/100; PULSE 124; O2SAT 95
[2024-10-17 19:24] VITALS: BP 137/71; PULSE 87; RESP 18; TEMP 36.5; O2SAT 98; BMI 26.1
--- NOTE | 2024-10-17 20:26 | ED_ITS ---
HPI - Wound/Laceration General Chief Complaint: Wound/Laceration Stated Complaint: SEEN ALREADY TODAY HERE, TONGUE BLEEDING PER EMS Time Seen by Provider: 10/17/24 19:32 History of Present Illness HPI narrative: Patient is a 64-year-old female with a history of a broken bridge earlier in the day. Patient unfortunately lacerated the right side of her tongue earlier. No bleeding was subsequently controlled. Patient not on any blood thinners. Went home. Subsequently had some banana and it started bleeding again. Came back to the ED immediately after this was contacted. Related Data Home Medications ?Medication ?Instructions ?Recorded ?Confirmed clonazepam 0.25 mg disintegrating 0.25 mg PO TID PRN anxiety 05/16/24 05/16/24 tablet famotidine 20 mg tablet 20 mg PO BEDTIME Acid Reflux 05/16/24 05/19/24 lamotrigine 200 mg tablet 200 mg PO BEDTIME 05/16/24 05/16/24 lamotrigine 25 mg tablet 50 mg PO BID 05/16/24 05/19/24 omeprazole 20 mg capsule,delayed 20 mg PO DAILY 05/16/24 05/16/24 release ascorbic acid (vitamin C) 1,000 mg 1,000 mg PO DAILY 05/19/24 05/19/24 tablet (Vitamin C) calcium carbonate 600 mg PO DAILY 05/19/24 05/19/24 cholecalciferol (vitamin D3) 25 25 mcg PO DAILY 05/19/24 05/19/24 mcg (1,000 unit) capsule (Vitamin D3) coenzyme Q10 100 mg capsule 100 mg PO DAILY 05/19/24 05/19/24 (CoQ-10) [id number]-vaqi-tgyu 8 mg-folic 400 1 tab PO DAILY 05/19/24 05/19/24 mcg-K 50 mcg-lutein 300 mcg tablet (Centrum Silver Women) Previous Rx's ?Medication ?Instructions ?Recorded chlorpromazine 25 mg tablet 50 mg (2 x 25 mg) PO DAILY 30 days 12/02/23 #60 tabs chlorpromazine 25 mg tablet 75 mg (3 x 25 mg) PO BEDTIME 30 12/02/23 days #90 tabs levothyroxine 125 mcg tablet 125 mcg PO DAILY@0600 30 days #30 12/02/23 tabs simvastatin 40 mg tablet 40 mg PO BEDTIME 30 days #30 tabs 12/02/23 trazodone 50 mg tablet 50 mg PO BEDTIME PRN Insomnia 30 12/02/23 days #30 tabs trihexyphenidyl 2 mg tablet 2 mg PO QAM 30 days #30 tabs 12/02/23 ziprasidone HCl 20 mg capsule 20 mg PO BIDWM 30 days #60 caps 12/02/23 ziprasidone HCl 80 mg capsule 80 mg PO BIDWM 30 days #60 caps 12/02/23 Allergies Allergy/AdvReac Type Severity Reaction Status Date / Time Penicillins [PENICILLINS] Allergy Severe HIVES Verified 10/17/24 19:26 sulfamethoxazole Allergy Severe DIARRHEA Verified 10/17/24 19:26 [From BACTRIM] trimethoprim [From BACTRIM] Allergy Severe DIARRHEA Verified 10/17/24 19:26 aripiprazole [From ABILIFY] Allergy Intermediate ATAXIA Verified 10/17/24 19:26 aspirin [ASPIRIN] Allergy Intermediate STOMACH Verified 10/17/24 19:26 CRAMPS benztropine [From COGENTIN] Allergy Intermediate CONFUSION, Verified 10/17/24 19:26 memory loss bupropion [BUPROPION] Allergy Intermediate DIZZINESS Verified 10/17/24 19:26 erythromycin base Allergy Intermediate GI UPSET Verified 10/17/24 19:26 [ERYTHROMYCIN BASE] ibuprofen [From MOTRIN] Allergy Intermediate STOMACH Verified 10/17/24 19:26 CRAMPS olanzapine [From ZYPREXA] Allergy Intermediate TONGUE Verified 10/17/24 19:26 MOVEMENTS perphenazine [From TRILAFON] Allergy Intermediate ARM AND Verified 10/17/24 19:26 LEG MOVEMENTS, FALL risperidone [From RISPERDAL] Allergy Intermediate TONGUE Verified 10/17/24 19:26 MOVEMENT milk Allergy Drowsy Verified 10/17/24 19:26 egg AdvReac Stomach Verified 10/17/24 19:26 Upset From INDERAL Allergy Intermediate WHEEZING Uncoded 10/17/24 19:26 Review of Systems 2 Review of Systems: No fever no chills no systemic complaints PMFSH Past Medical History Attestation statement: The following information was validated with the patient. Medical History Routine medical exam CKD (chronic kidney disease), stage IV Bipolar disorder Neck pain Murmur GERD (gastroesophageal reflux disease) Hypothyroidism Irritable bowel syndrome (IBS) Hyperlipidemia Anxiety and depression Dissociative identity disorder Surgical History Hx of colonoscopy History of total thyroidectomy Social History Social History Household Members: None Household Members Other:: roommate Housing: Apartment Are you a primary pet care worker to a significant other at home: No Do you presently have visiting nurse or other home services: Yes (pt has VNA for only one day prior to admission.) Unable to assess alcohol history related to: Unknown Comment: aware of trip hazard Patient Tobacco Use Status: Former Tobacco user Tobacco use type: Cigarette Cigarette Packs Per Day: 1 Cigarettes Per Day: 20.0 Years Smoked: 20 e-Cigarette/Vaping Use: Never Used Second Hand Smoke Exposure: No Use of substances other than those prescribed or required for medical reasons: No Advance Directives: No Advance Directives Information Provided: Yes Do you have a plan to hurt others: No Plan service: No Sexual orientation: Did not discuss Physical Exam 2 Vital Signs: Vital Signs: Last Vital Signs Temp 97.7 F 10/17/24 19:24 Pulse 87 10/17/24 19:24 Resp 18 10/17/24 19:24 BP 137/71 10/17/24 19:24 Pulse Ox 98 10/17/24 19:24 O2 Del Method Room Air 10/17/24 19:24 BMI result Body Mass Index 26.1 Appearance: Alert. Oriented X3. No acute distress. Eyes: Pupils equal, round and reactive to light. ENT: Pharynx normal. There is a small laceration approximately 1 cm in size on the right side of the tongue. Bleeding seems to be controlled. Neck: Normal inspection. Neck supple. No lymph nodes noted. No crepitus CVS: Normal heart rate and rhythm. Pulses normal. Normal S1 and S2 Respiratory: No respiratory distress. Breath sounds normal. No Wheezing. No rales Abdomen: Soft and nontender. No rigidity. No distention. good BS x4 Skin: Skin warm and dry. Normal skin color. Normal skin turgor. Extremities: No lower extremity edema. Neurovascular intact to all extremities. No Lacerations. No Rash Neuro: Oriented X 3. No motor deficit. No sensory deficit. Moving all extermities. No slurred speech Medical Decision Making Medical Decision Making MDM Narrative: Patient well appearing no acute distress. Bleeding is controlled. No distress. Patient did have a broken bridge noted in the right molar area. Question if that is causing irritation than having some bleeding. Explained to patient the need to be careful with her diet. Follow-up with dentist tomorrow which she already has an appointment. Currently in stable condition. A check patient's hemoglobin which is actually about baseline. I checked patient's kidney function which is normal. Patient was reassured will discharge home Differential Diagnosis Differential Diagnoses: The differential diagnosis associated with the presentation includes Bleeding tongue, bleeding gums, dental issues Admission/Observation Consideration of admission/observation: Escalation of care including admission/observation considered Lab Data MDM Lab Attestation statement: I reviewed the patient's lab results. 10/17/24 20:30 10/17/24 20:30 Labs: Lab Results 10/17/24 Range/Units 20:30 WBC 6.8 (4.8-10.8) X10*3/uL RBC 3.71 L (4.20-5.50) X10*6/uL Hgb 11.8 L (12.0-16.0) g/dl Hct 33.6 L (37.0-47.0) % MCV 90.6 (80.0-98.0) fL MCH 31.8 (27.0-33.0) pg MCHC 35.1 H (31.0-35.0) g/dl RDW 12.0 (11.0-16.0) % Plt Count 196 (160-400) X10*3/uL MPV 8.8 L (9.4-12.3) fL Immature Gran % (Auto) 0.1 (0.0-0.4) % Neut % (Auto) 77.1 H (45-73) % Lymph % (Auto) 14.5 L (20-40) % [place] % (Auto) 7.9 (2-11) % Eos % (Auto) 0.0 (0-4) % Baso % (Auto) 0.4 (0-2) % Lymph # (Auto) 1.0 L (1.2-4.9) X10*3/uL [place] # (Auto) 0.5 (0.1-1.2) X10*3/uL Eos # (Auto) 0.0 (0.0-0.4) X10*3/uL Baso # (Auto) 0.0 (0.0-0.2) X10*3/uL Abs Immat Gran (auto) 0.01 (0.00-0.03) X10*3/uL Absolute Neuts (auto) 5.2 (2.0-8.3) x10*3/uL Absolute Nucleated RBC 0.000 (0.0-0.012) X10*3/uL Nucleated RBC % (auto) 0.0 (0.0-0.2) /100WBC Sodium 144 (135-145) mmol/L Potassium 4.1 (3.3-5.1) mmol/L Chloride 108 (96-108) mmol/L Carbon Dioxide 26 (22-29) mmol/L Anion Gap 14 (12-20) BUN 21 H (9-16) mg/dL Creatinine 1.74 H (0.5-1.4) mg/dL Estim Creat Clear Calc 29.2 Estimated GFR 29 Random Glucose 109 (60-115) mg/dL Calcium 10.0 (8.4-10.2) mg/dL Discharge Plan Discharge Clinical Impression: Laceration of tongue without complication Patient Disposition: Home, Self-Care Instructions: Laceration (ED) Prescriptions: No Action trazodone 50 mg Tablet 50 mg PO BEDTIME PRN (Reason: Insomnia) 30 Days Qty: 30 0RF ziprasidone HCl 80 mg capsule 80 mg PO BIDWM 30 Days Qty: 60 0RF simvastatin 40 mg tablet 40 mg PO BEDTIME 30 Days Qty: 30 0RF ziprasidone HCl 20 mg Capsule 20 mg PO BIDWM 30 Days Qty: 60 0RF Rx Instructions: give with food (meal/snack) chlorpromazine 25 mg Tablet 50 mg PO DAILY 30 Days Qty: 60 0RF chlorpromazine 25 mg Tablet 75 mg PO BEDTIME 30 Days Qty: 90 0RF levothyroxine 125 mcg Tablet 125 mcg PO DAILY@0600 30 Days Qty: 30 0RF trihexyphenidyl 2 mg tablet 2 mg PO QAM 30 Days Qty: 30 0RF lamotrigine 25 mg tablet 50 mg PO BID famotidine 20 mg tablet 20 mg PO BEDTIME omeprazole 20 mg capsule,delayed release(DR/EC) 20 mg PO DAILY lamotrigine 200 mg tablet 200 mg PO BEDTIME clonazepam 0.25 mg tablet,disintegrating 0.25 mg PO TID PRN (Reason: anxiety) ascorbic acid (vitamin C) [Vitamin C] 1,000 mg Tablet 1,000 mg PO DAILY calcium carbonate 600 mg calcium (1,500 mg) Tablet 600 mg PO DAILY cholecalciferol (vitamin D3) [Vitamin D3] 25 mcg (1,000 unit) Capsule 25 mcg PO DAILY coenzyme Q10 [CoQ-10] 100 mg Capsule 100 mg PO DAILY Centrum Silver Women 8 mg iron-400 mcg-50 mcg Tablet 1 tab PO DAILY Referrals: Lino Parker MD [Primary Care Provider] - 10/19/24 (Please also follow-up with your dentist tomorrow) Print Language: Tamazight
[2024-10-17 20:34] LABS: MANUAL DIFF FLAG NO
[2024-10-17 20:35] LABS: Basophils Percent Auto 0.4 % (0-2); Hematocrit 33.6 % (37.0-47.0); Hemoglobin 11.8 g/dl (12.0-16.0); Imm Gran Abs Auto 0.01 X10*3/uL (0.00-0.03); Imm Gran Pct Auto 0.1 % (0.0-0.4); Lymphocytes Percent Auto 14.5 % (20-40); Mean Corpuscular HGB Conc 35.1 g/dl (31.0-35.0); Mean Corpuscular Hemoglobin 31.8 pg (27.0-33.0); Mean Corpuscular Volume 90.6 fL (80.0-98.0); Mean Platelet Volume 8.8 fL (9.4-12.3); Monocytes Absolute Auto 0.5 X10*3/uL (0.1-1.2); Monocytes Percent Auto 7.9 % (2-11); Neutrophils Absolute Auto 5.2 x10*3/uL (2.0-8.3); Neutrophils Percent Auto 77.1 % (45-73); Platelet Count 196 X10*3/uL (160-400); Red Blood Count 3.71 X10*6/uL (4.20-5.50); White Blood Count 6.8 X10*3/uL (4.8-10.8)
[2024-10-17 20:49] LABS: Anion Gap 14 (12-20); Blood Urea Nitrogen 21 mg/dL (9-16); Carbon Dioxide 26 mmol/L (22-29); Chloride 108 mmol/L (96-108); Creatinine Clr Calc Pharmacy 29.2; Estimated Glomerular Filt Rate 29; Glucose Random 109 mg/dL (60-115); Potassium 4.1 mmol/L (3.3-5.1); Sodium 144 mmol/L (135-145)
[2024-10-17 21:15] VITALS: BP 137/71; PULSE 88; RESP 18; TEMP 36.5; O2SAT 98
== END 2024-10-17 21:16 | disposition home or self-care (01) ==
PROVIDERS: Emergency Provider Emergency Medicine Emergency Medical Services; PCP Family Medicine
DX: S01.512A Laceration without foreign body of oral cavity, initial encounter (principal); X58.XXXA Exposure to other specified factors, initial encounter; Y93.89 Activity, other specified; Y92.89 Other specified places as the place of occurrence of the external cause; Y99.8 Other external cause status; Z79.899 Other long term (current) drug therapy
CPT/HCPCS: 36415; 80048; 85025; 99282; 99283

== ENCOUNTER 2024-10-20 09:59 | Outpatient (REF) | payer MEDICARE, MEDICAID, SELFPAY ==
--- NOTE | ~2024-10-20 | CT_ITS ---
EXAMINATION: CT CHEST WITHOUT CONTRAST CLINICAL INFORMATION: Evaluate lung nodule COMPARISON: CT abdomen and pelvis 05/06/2024: There is a 4 mm left lower lobe nodule anteriorly adjacent to the major fissure (4:14). TECHNIQUE: Multidetector volumetric CT imaging of the chest was done. Axial MIP volume rendering provided. Sagittal and coronal reformatted images were obtained. This CT examination was performed using dose optimization techniques as appropriate, variously including the following: *Automated exposure control *Adjustment of mA and/or kV according to patient size (this includes techniques or standardized protocols for targeted exams where dose is matched to indication/reason for exam; i.e. extremities or head) *Use of iterative reconstruction technique DLP: 125 mGy-cm FINDINGS: LUNGS: Minimal emphysematous changes seen along with mild bronchial thickening. Scattered pulmonary nodules are present, none larger than 4 mm in size. There is a 3 mm right lower lobe groundglass nodule (7: 415 along with a 3 mm right middle lobe nodule (7:243). Ovoid 4 mm left lower lobe nodule along the major fissure anteriorly is unchanged (7:399 compare prior 4:15). Scattered punctate calcified granulomas are seen. There is some tiny areas of mucus impaction in smaller airways. Perifissural right middle lobe triangular lymph node is seen on the undersurface of the minor fissure. MEDIASTINUM: Status post thyroidectomy with clips in the thyroid bed CORONARY ARTERY CALCIFICATION: Present PLEURA: There is no pleural effusion. No pleural mass or thickening. AXILLA: No lymphadenopathy. UPPER ABDOMEN: Layering gallstones are again seen . No evidence of cholecystitis OSSEOUS STRUCTURES: Unremarkable aside from degenerative changes. CT/CT chest wo IV con IMPRESSION: 1. Scattered pulmonary nodules, none larger than 4 mm in size. 2. Incidental note made of mild emphysematous changes, cholelithiasis and thyroidectomy. Fleischner guidelines were followed. Electronically signed by: Kings Granados MD 10/25/2024 01:16 PM MICHAEL
== END 2024-10-20 10:00 | disposition home or self-care (01) ==
LOC: HO.CT 09:59
PROVIDERS: PCP Family Medicine; Visit Provider Family Medicine
DX: R91.1 Solitary pulmonary nodule (principal)
CPT/HCPCS: 71250

== ENCOUNTER 2024-10-25 09:39 | Emergency (ER) | payer MEDICARE, MEDICAID, SELFPAY ==
--- NOTE | 2024-10-25 | ECG_ITS ---
Test Reason : CHEST PAIN Blood Pressure : / mmHG Vent. Rate : 066 BPM Atrial Rate : 066 BPM P-R Int : 174 ms QRS Dur : 080 ms QT Int : 440 ms P-R-T Axes : 051 005 043 degrees QTc Int : 461 ms Normal sinus rhythm Normal ECG When compared with ECG of 16-MAY-2024 12:49, Nonspecific T wave abnormality no longer evident in Anterior leads Referred By: Generic ED Physician Electronically Signed By:BRODY PHILLIPS
--- NOTE | ~2024-10-25 | XR_ITS ---
EXAMINATION: XR CHEST CLINICAL INFORMATION: chest pain, sob COMPARISON: Chest CT dated October 20, 2024. Chest x-ray dated December 18, 2014. TECHNIQUE: Upright portable AP view of the chest was obtained. FINDINGS: No significant abnormality is noted involving the heart, lungs, mediastinum, bony thorax. Surgical clips project over the lower neck, probably related to thyroidectomy. XR/XR chest 1V IMPRESSION: Unremarkable examination. Electronically signed by: Nakul Lizarraga MD 10/25/2024 11:40 AM [facility]
[2024-10-25 09:45] VITALS: BP 129/74; BP 129/79; PULSE 70; PULSE 74; RESP 16; TEMP 36.9; O2SAT 100; O2SAT 98; BMI 24.7
--- NOTE | 2024-10-25 10:00 | PC.NURSE ---
biba from home d/t feeling lethargic x this am. 1 episode of left sided sharp chest pain followed by dull 4/10 chest pain x 1 hour s/p doing laundry. pt also endorsing SOB w/ exertion and pain in upper extremities bilaterally. nodule noted in left lung s/p latest CT scan. 100% on RA. pt placed on 2L via NC for comfort via EMS. no wob noted. lungs CTA. no nitro administered via EMS d/t BP. upon ED arrival - a&ox4. vss and up to date. pt taken off of NC displaying 97% on RA. nsr on the surveillance system monitor. pt currently c/o 4/10 left sided chest pain and sob on arrival. pt sitting upright to promote patent airway. no sob/wob noted. lung sounds CTA. respirations even/unlabored. 20gIV placed in the right AC - labs obtained/sent to lab. ekg currently being performed by tech. xryina pending at this time. plan of care ongoing. call mccoy placed within reach.
[2024-10-25 10:02] LABS: MANUAL DIFF FLAG NO
--- NOTE | 2024-10-25 10:02 | ED.CHESTPAIN ---
HPI - Chest Pain General Chief Complaint: Chest Pain Stated Complaint: DULL CP,SOB 100% RA PER EMS Time Seen by Provider: 10/25/24 09:58 Source: patient and EMS Mode of arrival: EMS Limitations: no limitations History of Present Illness ED Provider: DR. Sims HPI narrative: 64-year-old female came in by ambulance for evaluation left-sided chest pain and difficulty breathing while she was doing her laundry pain a started sharp then became localized to the left side of the chest with no radiation pain was accompanied with shortness of breath pain is fading away and almost gone now, no recent travel, no lower extremities swelling or tenderness, patient had abnormal left lung nodule just had CT on 10/20 of the chest result is not available yet. Patient with past medical history significant for hypothyroidism, HLD, PTSD, mood disorder, personality disorder, GERD, CKD stage 4. Related Data Home Medications ?Medication ?Instructions ?Recorded ?Confirmed clonazepam 0.25 mg disintegrating 0.25 mg PO TID PRN anxiety 05/16/24 05/16/24 tablet famotidine 20 mg tablet 20 mg PO BEDTIME Acid Reflux 05/16/24 05/19/24 lamotrigine 200 mg tablet 200 mg PO BEDTIME 05/16/24 05/16/24 lamotrigine 25 mg tablet 50 mg PO BID 05/16/24 05/19/24 omeprazole 20 mg capsule,delayed 20 mg PO DAILY 05/16/24 05/16/24 release ascorbic acid (vitamin C) 1,000 mg 1,000 mg PO DAILY 05/19/24 05/19/24 tablet (Vitamin C) calcium carbonate 600 mg PO DAILY 05/19/24 05/19/24 cholecalciferol (vitamin D3) 25 25 mcg PO DAILY 05/19/24 05/19/24 mcg (1,000 unit) capsule (Vitamin D3) coenzyme Q10 100 mg capsule 100 mg PO DAILY 05/19/24 05/19/24 (CoQ-10) [id number] 8 mg-folic 400 1 tab PO DAILY 05/19/24 05/19/24 mcg-K 50 mcg-lutein 300 mcg tablet (Centrum Silver Women) Previous Rx's ?Medication ?Instructions ?Recorded chlorpromazine 25 mg tablet 50 mg (2 x 25 mg) PO DAILY 30 days 12/02/23 #60 tabs chlorpromazine 25 mg tablet 75 mg (3 x 25 mg) PO BEDTIME 30 12/02/23 days #90 tabs levothyroxine 125 mcg tablet 125 mcg PO DAILY@0600 30 days #30 12/02/23 tabs simvastatin 40 mg tablet 40 mg PO BEDTIME 30 days #30 tabs 12/02/23 trazodone 50 mg tablet 50 mg PO BEDTIME PRN Insomnia 30 12/02/23 days #30 tabs trihexyphenidyl 2 mg tablet 2 mg PO QAM 30 days #30 tabs 12/02/23 ziprasidone HCl 20 mg capsule 20 mg PO BIDWM 30 days #60 caps 12/02/23 ziprasidone HCl 80 mg capsule 80 mg PO BIDWM 30 days #60 caps 12/02/23 Allergies Allergy/AdvReac Type Severity Reaction Status Date / Time Penicillins [PENICILLINS] Allergy Severe HIVES Verified 10/25/24 09:48 sulfamethoxazole Allergy Severe DIARRHEA Verified 10/25/24 09:48 [From BACTRIM] trimethoprim [From BACTRIM] Allergy Severe DIARRHEA Verified 10/25/24 09:48 aripiprazole [From ABILIFY] Allergy Intermediate ATAXIA Verified 10/25/24 09:48 aspirin [ASPIRIN] Allergy Intermediate STOMACH Verified 10/25/24 09:48 CRAMPS benztropine [From COGENTIN] Allergy Intermediate CONFUSION, Verified 10/25/24 09:48 memory loss bupropion [BUPROPION] Allergy Intermediate DIZZINESS Verified 10/25/24 09:48 erythromycin base Allergy Intermediate GI UPSET Verified 10/25/24 09:48 [ERYTHROMYCIN BASE] ibuprofen [From MOTRIN] Allergy Intermediate STOMACH Verified 10/25/24 09:48 CRAMPS olanzapine [From ZYPREXA] Allergy Intermediate TONGUE Verified 10/25/24 09:48 MOVEMENTS perphenazine [From TRILAFON] Allergy Intermediate ARM AND Verified 10/25/24 09:48 LEG MOVEMENTS, FALL risperidone [From RISPERDAL] Allergy Intermediate TONGUE Verified 10/25/24 09:48 MOVEMENT milk Allergy Drowsy Verified 10/25/24 09:48 egg AdvReac Stomach Verified 10/25/24 09:48 Upset From INDERAL Allergy Intermediate WHEEZING Uncoded 10/25/24 09:48 Review of Systems Review of Systems: all other systems are reviewed and are negative Constitutional: Reports as per HPI and Reports no additional constitutional complaints Eyes: Reports as per HPI and Reports no additional eye complaints Reports system reviewed and no additional complaints, except as documented Cardiovascular: Reports as per HPI and Reports no additional cardiovascular complaints Respiratory: Reports as per HPI and Reports no additional respiratory complaints Gastrointestinal: Reports as per HPI and Reports no additional gastrointestinal complaints Genitourinary: Reports no additional female genitourinary complaints Musculoskeletal: Reports no additional musculoskeletal complaints Skin/Breast: Reports system reviewed and no additional complaints, except as docu Psychiatric: Reports no additional psychiatric complaints Endocrine: Reports no additional endocrine complaints Hematologic/Lymphatic: Reports no additional hematologic/lymphatic complaints Allergic/Immunologic: Reports no additional allergic/immunologic complaints Reports system reviewed and no additional complaints, except as documented and Reports Abnormal speech present [facility] Past Medical History Medical History Routine medical exam CKD (chronic kidney disease), stage IV Bipolar disorder Neck pain Murmur GERD (gastroesophageal reflux disease) Hypothyroidism Irritable bowel syndrome (IBS) Hyperlipidemia Anxiety and depression Dissociative identity disorder Surgical History Hx of colonoscopy History of total thyroidectomy Social History Social History Household Members: None Household Members Other:: roommate Housing: Apartment Are you a primary palliative care nurse practitioner to a significant other at home: No Do you presently have visiting nurse or other home services: Yes (pt has VNA for only one day prior to admission.) Unable to assess alcohol history related to: Unknown Comment: aware of trip hazard Patient Tobacco Use Status: Former Tobacco user Tobacco use type: Cigarette Cigarette Packs Per Day: 1 Cigarettes Per Day: 20.0 Years Smoked: 20 Smoked in Last 30 Days: No e-Cigarette/Vaping Use: Never Used Second Hand Smoke Exposure: No Use of substances other than those prescribed or required for medical reasons: No Advance Directives: No Advance Directives Information Provided: Yes Do you have a plan to hurt others: No Plan service: No Sexual orientation: Did not discuss Physical Exam Vital Signs: Vital Signs: Last Vital Signs Temp 98.3 F 10/25/24 11:20 Pulse 66 10/25/24 12:57 Resp 13 10/25/24 12:57 BP 126/68 10/25/24 12:57 Pulse Ox 99 10/25/24 12:57 O2 Del Method Room Air 10/25/24 12:57 BMI result Body Mass Index 24.7 Vital signs have been reviewed and appear to be correct. Blood pressure elevated. Heart rate normal. Respiratory rate normal. Temperature normal. Oxygen saturation normal. Appearance: Alert. Oriented X3. No acute distress. Head: Normal external exam. Normocephalic. Atraumatic. No Christensen signs noted. No raccoon eyes noted Eyes: PERRLA. EOMI. Conjunctiva and sclera normal. Eyelids normal. ENT: TM's Normal. Pharynx normal. Uvula midline. Moist mucous membranes. No trismus noted. No drooling noted. No muffled voice noted. Neck: Normal inspection. Neck supple. FROM. No adenopathy. Thyroid Normal. No meningeal signs. No neck mass noted. CVS: Normal heart rate and rhythm. Heart sound normal. No murmurs noted. Pulses normal throughout. Respiratory: No respiratory distress. Painless inspiration. Breath sounds normal. No wheezes/rales/rhonchi noted. Chest nontender. No accessory muscle usage noted or decreased air movement noted. Abdomen: Soft and nontender. Bowel sounds normal in all 4 quadrants. No distention noted. No organomegaly noted. No visible injury noted. Back: No CVA tenderness. Full range of motion noted. Skin: Skin warm and dry. Normal skin color. Normal skin turgor. No rashes/lesions/lacerations noted. Extremities: No lower extremity edema. Extremities exhibit normal range of motion. Extremities nontender. Neuro: Oriented X 3. Cranial nerve exam: II-XII are grossly intact No motor deficit. No sensory deficit. Reflexes normal. Course Reevaluation(s) Reevaluation #1: 64-year-old female in for evaluation of chest pain, unremarkable cardiac workup. Patient had CT order by her CBC which showed scattered pulmonary nodule. Patient was instructed to follow-up with her PCP. Time: 14:03 Medical Decision Making Differential Diagnosis Differential Diagnoses: The differential diagnosis associated with the presentation includes ( ACS, pneumonia, pneumothorax, pleural effusion, severe anemia, electrolyte derangement.) Admission/Observation Consideration of admission/observation: Escalation of care including admission/observation considered Lab Data MDM Lab Attestation statement: I reviewed the patient's lab results. 10/25/24 09:58 10/25/24 09:58 Labs: Lab Results 10/25/24 10/25/24 Range/Units 09:58 13:01 WBC 4.9 (4.8-10.8) X10*3/uL RBC 3.89 L (4.20-5.50) X10*6/uL Hgb 12.2 (12.0-16.0) g/dl Hct 34.7 L (37.0-47.0) % MCV 89.2 (80.0-98.0) fL MCH 31.4 (27.0-33.0) pg MCHC 35.2 H (31.0-35.0) g/dl RDW 12.0 (11.0-16.0) % Plt Count 208 (160-400) X10*3/uL MPV 8.7 L (9.4-12.3) fL Immature Gran % (Auto) 0.2 (0.0-0.4) % Neut % (Auto) 77.0 H (45-73) % Lymph % (Auto) 15.3 L (20-40) % [place] % (Auto) 7.3 (2-11) % Eos % (Auto) 0.0 (0-4) % Baso % (Auto) 0.2 (0-2) % Lymph # (Auto) 0.8 L (1.2-4.9) X10*3/uL [place] # (Auto) 0.4 (0.1-1.2) X10*3/uL Eos # (Auto) 0.0 (0.0-0.4) X10*3/uL Baso # (Auto) 0.0 (0.0-0.2) X10*3/uL Abs Immat Gran (auto) 0.01 (0.00-0.03) X10*3/uL Absolute Neuts (auto) 3.8 (2.0-8.3) x10*3/uL Absolute Nucleated RBC 0.000 (0.0-0.012) X10*3/uL Nucleated RBC % (auto) 0.0 (0.0-0.2) /100WBC Sodium 139 (135-145) mmol/L Potassium 4.3 (3.3-5.1) mmol/L Chloride 102 (96-108) mmol/L Carbon Dioxide 30 H (22-29) mmol/L Anion Gap 11 L (12-20) BUN 25 H (9-16) mg/dL Creatinine 1.90 H (0.5-1.4) mg/dL Estim Creat Clear Calc 26.1 Estimated GFR 26 Random Glucose 92 (60-115) mg/dL Calcium 10.1 (8.4-10.2) mg/dL Magnesium 2.1 (1.6-2.6) mg/dL Total Bilirubin 0.4 (0.0-1.0) mg/dL AST 41 H (5-31) U/L ALT 32 H (0-31) U/L Alkaline Phosphatase 40 (39-117) U/L Troponin I High Sens < 2.7 < 2.7 (<3.5-17.0) ng/L B-Natriuretic Peptide < 10 (<100) pg/mL Total Protein 7.2 (6.5-8.0) g/dL Albumin 4.5 (3.5-5.0) g/dL Independent Interpretation I performed an independent interpretation of an: Plain X-Ray ( No acute pathology.) and CT Scan ( Chest:1. Scattered pulmonary nodules, none larger than 4 mm in size. 2. Incidental note made of mild emphysematous changes, cholelithiasis and thyroidectomy. ) Radiology Impression Discussion of test interpretation with radiology: I have reviewed the radiologist's reading. Discharge Plan Discharge Clinical Impression: Atypical chest pain, Lung nodule Patient Disposition: Home, Self-Care Instructions: Chest Pain (ED) Prescriptions: No Action trazodone 50 mg Tablet 50 mg PO BEDTIME PRN (Reason: Insomnia) 30 Days Qty: 30 0RF ziprasidone HCl 80 mg capsule 80 mg PO BIDWM 30 Days Qty: 60 0RF simvastatin 40 mg tablet 40 mg PO BEDTIME 30 Days Qty: 30 0RF ziprasidone HCl 20 mg Capsule 20 mg PO BIDWM 30 Days Qty: 60 0RF Rx Instructions: give with food (meal/snack) chlorpromazine 25 mg Tablet 50 mg PO DAILY 30 Days Qty: 60 0RF chlorpromazine 25 mg Tablet 75 mg PO BEDTIME 30 Days Qty: 90 0RF levothyroxine 125 mcg Tablet 125 mcg PO DAILY@0600 30 Days Qty: 30 0RF trihexyphenidyl 2 mg tablet 2 mg PO QAM 30 Days Qty: 30 0RF lamotrigine 25 mg tablet 50 mg PO BID famotidine 20 mg tablet 20 mg PO BEDTIME omeprazole 20 mg capsule,delayed release(DR/EC) 20 mg PO DAILY lamotrigine 200 mg tablet 200 mg PO BEDTIME clonazepam 0.25 mg tablet,disintegrating 0.25 mg PO TID PRN (Reason: anxiety) ascorbic acid (vitamin C) [Vitamin C] 1,000 mg Tablet 1,000 mg PO DAILY calcium carbonate 600 mg calcium (1,500 mg) Tablet 600 mg PO DAILY cholecalciferol (vitamin D3) [Vitamin D3] 25 mcg (1,000 unit) Capsule 25 mcg PO DAILY coenzyme Q10 [CoQ-10] 100 mg Capsule 100 mg PO DAILY Centrum Silver Women 8 mg iron-400 mcg-50 mcg Tablet 1 tab PO DAILY Referrals: Lino Parker MD [Primary Care Provider] - Print Language: Bermudian
[2024-10-25 10:06] LABS: Basophils Percent Auto 0.2 % (0-2); Hematocrit 34.7 % (37.0-47.0); Hemoglobin 12.2 g/dl (12.0-16.0); Imm Gran Abs Auto 0.01 X10*3/uL (0.00-0.03); Imm Gran Pct Auto 0.2 % (0.0-0.4); Lymphocytes Absolute Auto 0.8 X10*3/uL (1.2-4.9); Lymphocytes Percent Auto 15.3 % (20-40); Mean Corpuscular HGB Conc 35.2 g/dl (31.0-35.0); Mean Corpuscular Hemoglobin 31.4 pg (27.0-33.0); Mean Corpuscular Volume 89.2 fL (80.0-98.0); Mean Platelet Volume 8.7 fL (9.4-12.3); Monocytes Absolute Auto 0.4 X10*3/uL (0.1-1.2); Monocytes Percent Auto 7.3 % (2-11); Neutrophils Absolute Auto 3.8 x10*3/uL (2.0-8.3); Platelet Count 208 X10*3/uL (160-400); Red Blood Count 3.89 X10*6/uL (4.20-5.50); White Blood Count 4.9 X10*3/uL (4.8-10.8)
[2024-10-25 10:23] LABS: Alanine Aminotransferase 32 U/L (0-31); Albumin Level 4.5 g/dL (3.5-5.0); Alkaline Phosphatase 40 U/L (39-117); Anion Gap 11 (12-20); Aspartate Amino Transferase 41 U/L (5-31); Bilirubin Total 0.4 mg/dL (0.0-1.0); Blood Urea Nitrogen 25 mg/dL (9-16); Calcium 10.1 mg/dL (8.4-10.2); Carbon Dioxide 30 mmol/L (22-29); Chloride 102 mmol/L (96-108); Creatinine Clr Calc Pharmacy 26.1; Estimated Glomerular Filt Rate 26; Glucose Random 92 mg/dL (60-115); Magnesium 2.1 mg/dL (1.6-2.6); Potassium 4.3 mmol/L (3.3-5.1); Sodium 139 mmol/L (135-145); Total Protein 7.2 g/dL (6.5-8.0)
[2024-10-25 10:31] LABS: Troponin-I High Sensitivity < 2.7 ng/L (<3.5-17.0)
[2024-10-25 10:40] LABS: B Type Natriuretic Peptide < 10 pg/mL (<100)
[2024-10-25 11:20] VITALS: BP 132/71; PULSE 69; RESP 16; TEMP 36.8; O2SAT 99
[2024-10-25 12:57] VITALS: BP 126/68; PULSE 66; RESP 13; O2SAT 99
--- NOTE | 2024-10-25 13:00 | PC.NURSE ---
repeat troponin obtained/sent to lab by tech.
[2024-10-25 13:33] LABS: Troponin-I High Sensitivity < 2.7 ng/L (<3.5-17.0)
[2024-10-25 14:28] VITALS: BP 144/84; PULSE 99; RESP 18; TEMP 36.8; O2SAT 98
== END 2024-10-25 14:29 | disposition home or self-care (01) ==
PROVIDERS: Emergency Provider Emergency Medicine; PCP Family Medicine
DX: R91.1 Solitary pulmonary nodule (principal); R07.89 Other chest pain; R07.9 Chest pain, unspecified; R06.02 Shortness of breath; E03.9 Hypothyroidism, unspecified; Z79.899 Other long term (current) drug therapy
CPT/HCPCS: 36415; 71045; 80053; 83735; 83880; 84484; 85025; 93005; 99283; 99285

== ENCOUNTER → 2024-10-25 10:07 | Outpatient (BNV) | payer MEDICARE, MEDICAID, SELFPAY | PROVIDERS: Emergency Provider Emergency Medicine; PCP Family Medicine; Visit Provider Internal Medicine | DX: R07.9 Chest pain, unspecified (principal) | CPT/HCPCS: 93010 ==

== ENCOUNTER 2024-10-27 04:47 | Emergency (ER) | payer MEDICARE, MEDICAID, SELFPAY ==
--- NOTE | 2024-10-27 | ECG_ITS ---
Test Reason : CHEST PAIN Blood Pressure : / mmHG Vent. Rate : 064 BPM Atrial Rate : 064 BPM P-R Int : 174 ms QRS Dur : 078 ms QT Int : 424 ms P-R-T Axes : 057 -03 036 degrees QTc Int : 437 ms Normal sinus rhythm Normal ECG When compared with ECG of 25-OCT-2024 10:07, No significant change was found Referred By: Generic ED Physician Electronically Signed By:BRODY PHILLIPS
[2024-10-27 04:54] VITALS: BP 139/65; PULSE 70; O2SAT 99
[2024-10-27 04:58] VITALS: BP 127/56; PULSE 76; RESP 25; TEMP 36.8; O2SAT 97; BMI 26.5
[2024-10-27 05:15] VITALS: PULSE 79
[2024-10-27] MEDS: clonazePAM 0.5 MG TABLET PO (05:18)
--- NOTE | 2024-10-27 05:19 | ED_ITS ---
HPI - Chest Pain General Chief Complaint: Chest Pain Stated Complaint: ANXIETY/CHEST PAIN Time Seen by Provider: 10/27/24 04:53 Source: patient, EMS and old records reviewed Mode of arrival: EMS Limitations: no limitations History of Present Illness ED Provider: MAKI HPI narrative: 64 yo female with PMH of PTSD, bipolar, hypothyroidism, HLD, just here yesterday for anxiety and episodes of shallow breathing, she also feels twinges in the L chest. No cough, fevers, no known CAD, no prior VTE, no recent travel or sick contacts. Her main anxiety is related to a CT scan showing nodules. MD complaint: chest pain Onset (ago): week(s) (5) Timing of current episode: episodic Prior episodes: Yes Onset: during rest Pain location: left chest Pain radiation: none Severity: mild Quality: other ( twinges ) Relieving factors: nothing Exacerbating factors: stress Associated symptoms: other (anxiety) Treatment prior to arrival: none Related Data Home Medications ?Medication ?Instructions ?Recorded ?Confirmed clonazepam 0.25 mg disintegrating 0.25 mg PO TID PRN anxiety 05/16/24 05/16/24 tablet famotidine 20 mg tablet 20 mg PO BEDTIME Acid Reflux 05/16/24 05/19/24 lamotrigine 200 mg tablet 200 mg PO BEDTIME 05/16/24 05/16/24 lamotrigine 25 mg tablet 50 mg PO BID 05/16/24 05/19/24 omeprazole 20 mg capsule,delayed 20 mg PO DAILY 05/16/24 05/16/24 release ascorbic acid (vitamin C) 1,000 mg 1,000 mg PO DAILY 05/19/24 05/19/24 tablet (Vitamin C) calcium carbonate 600 mg PO DAILY 05/19/24 05/19/24 cholecalciferol (vitamin D3) 25 25 mcg PO DAILY 05/19/24 05/19/24 mcg (1,000 unit) capsule (Vitamin D3) coenzyme Q10 100 mg capsule 100 mg PO DAILY 05/19/24 05/19/24 (CoQ-10) [id number] 8 mg-folic 400 1 tab PO DAILY 05/19/24 05/19/24 mcg-K 50 mcg-lutein 300 mcg tablet (Centrum Silver Women) Previous Rx's ?Medication ?Instructions ?Recorded chlorpromazine 25 mg tablet 50 mg (2 x 25 mg) PO DAILY 30 days 12/02/23 #60 tabs chlorpromazine 25 mg tablet 75 mg (3 x 25 mg) PO BEDTIME 30 12/02/23 days #90 tabs levothyroxine 125 mcg tablet 125 mcg PO DAILY@0600 30 days #30 12/02/23 tabs simvastatin 40 mg tablet 40 mg PO BEDTIME 30 days #30 tabs 12/02/23 trazodone 50 mg tablet 50 mg PO BEDTIME PRN Insomnia 30 12/02/23 days #30 tabs trihexyphenidyl 2 mg tablet 2 mg PO QAM 30 days #30 tabs 12/02/23 ziprasidone HCl 20 mg capsule 20 mg PO BIDWM 30 days #60 caps 12/02/23 ziprasidone HCl 80 mg capsule 80 mg PO BIDWM 30 days #60 caps 12/02/23 Allergies Allergy/AdvReac Type Severity Reaction Status Date / Time Penicillins [PENICILLINS] Allergy Severe HIVES Verified 10/27/24 04:59 sulfamethoxazole Allergy Severe DIARRHEA Verified 10/27/24 04:59 [From BACTRIM] trimethoprim [From BACTRIM] Allergy Severe DIARRHEA Verified 10/27/24 04:59 aripiprazole [From ABILIFY] Allergy Intermediate ATAXIA Verified 10/27/24 04:59 aspirin [ASPIRIN] Allergy Intermediate STOMACH Verified 10/27/24 04:59 CRAMPS benztropine [From COGENTIN] Allergy Intermediate CONFUSION, Verified 10/27/24 04:59 memory loss bupropion [BUPROPION] Allergy Intermediate DIZZINESS Verified 10/27/24 04:59 erythromycin base Allergy Intermediate GI UPSET Verified 10/27/24 04:59 [ERYTHROMYCIN BASE] ibuprofen [From MOTRIN] Allergy Intermediate STOMACH Verified 10/27/24 04:59 CRAMPS olanzapine [From ZYPREXA] Allergy Intermediate TONGUE Verified 10/27/24 04:59 MOVEMENTS perphenazine [From TRILAFON] Allergy Intermediate ARM AND Verified 10/27/24 04:59 LEG MOVEMENTS, FALL risperidone [From RISPERDAL] Allergy Intermediate TONGUE Verified 10/27/24 04:59 MOVEMENT milk Allergy Drowsy Verified 10/27/24 04:59 egg AdvReac Stomach Verified 10/27/24 04:59 Upset From INDERAL Allergy Intermediate WHEEZING Uncoded 10/27/24 04:59 Review of Systems 2 Review of Systems: Constitutional : No Weight loss, No Fever, No Chills ENT/Mouth : No sore throat, No Rhinorrhea Eyes: No Eye Pain, No Swelling Cardiovascular : pos Chest Pain, pos SOB, no Dyspnea on Exertion, No Orthopnea, No Edema, No Palpitations Respiratory : No Cough, No Sputum Gastrointestinal : no Nausea, No Vomiting, No Diarrhea, No abdominal Pain, No Hematochezia, No Melena Genitourinary : No Dysuria, No Urinary Frequency Musculoskeletal : No joint pain, No Myalgias, No Joint Swelling Skin : No Skin Lesions, No rash Neuro : No Weakness, No Numbness, No Dizziness, No Headache Psych : pos Anxiety/Panic, No Depression All other systems reviewed and are negative PMFSH Past Medical History Attestation statement: The following information was validated with the patient. Source: old records reviewed Medical History Routine medical exam CKD (chronic kidney disease), stage IV Bipolar disorder Neck pain Murmur GERD (gastroesophageal reflux disease) Hypothyroidism Irritable bowel syndrome (IBS) Hyperlipidemia Anxiety and depression Dissociative identity disorder Surgical History Hx of colonoscopy History of total thyroidectomy Social History Social History Household Members: None Household Members Other:: roommate Housing: Apartment Are you a primary healthcare administrator to a significant other at home: No Do you presently have visiting nurse or other home services: Yes (pt has VNA for only one day prior to admission.) Unable to assess alcohol history related to: Unknown Alcohol intake: never Comment: aware of trip hazard Patient Tobacco Use Status: Former Tobacco user Tobacco use type: Cigarette Cigarette Packs Per Day: 1 Cigarettes Per Day: 20.0 Years Smoked: 20 Smoked in Last 30 Days: No e-Cigarette/Vaping Use: Never Used Second Hand Smoke Exposure: No Use of substances other than those prescribed or required for medical reasons: No Advance Directives: No Advance Directives Information Provided: Yes Do you have a plan to hurt others: No Plan service: No Sexual orientation: Did not discuss Physical Exam 2 Vital Signs: Vital Signs: Last Vital Signs Temp 98.2 F 10/27/24 04:58 Pulse 76 10/27/24 04:58 Resp 25 H 10/27/24 04:58 BP 127/56 L 10/27/24 04:58 Pulse Ox 97 10/27/24 04:58 O2 Del Method Room Air 10/27/24 04:58 BMI result Body Mass Index 26.5 Appearance: Alert. Oriented X3. No acute distress. anxious appearing Eyes: Pupils equal, round and reactive to light. ENT: Pharynx normal. Neck: Normal inspection. Neck supple. CVS: Normal heart rate and rhythm. Pulses normal. Respiratory: No respiratory distress. Breath sounds normal. Abdomen: Soft and nontender. Skin: Skin warm and dry. Normal skin color. Normal skin turgor. Extremities: No lower extremity edema. No calf ttp Neuro: Oriented X 3. No motor deficit. No sensory deficit. Medications Administered Discontinued Medications Generic Name Dose Route Start Last Admin Trade Name Freq PRN Reason Stop Dose Admin Clonazepam 0.5 mg 10/27/24 05:06 10/27/24 05:18 Clonazepam 0.5 Mg Tablet PO 10/27/24 05:07 0.5 mg ONCE ONE Administration Medical Decision Making Medical Decision Making [facility] Narrative: 64 yo femle with PMH of PTSD, bipolar, hypothyroidism, HLD here with c/o feeling anxiety, atypical chest pain, shallow breaths - she notes she is feeling anxious about recent CT scan which we did discuss. She has no infectious symptoms, she denies travel or procedures. I did order her home dose of klonopin for anxiety Differential Diagnosis Differential Diagnoses: The differential diagnosis associated with the presentation includes atypical chest pain, low prob VTE, anxiety Admission/Observation Consideration of admission/observation: Escalation of care including admission/observation considered work up reassuring stable for DC Lab Data [facility] Lab Attestation statement: I reviewed the patient's lab results. 10/27/24 05:14 10/27/24 05:14 Labs: Lab Results 10/27/24 Range/Units 05:14 WBC 5.1 (4.8-10.8) X10*3/uL RBC 3.95 L (4.20-5.50) X10*6/uL Hgb 12.4 (12.0-16.0) g/dl Hct 34.6 L (37.0-47.0) % MCV 87.6 (80.0-98.0) fL MCH 31.4 (27.0-33.0) pg MCHC 35.8 H (31.0-35.0) g/dl RDW 11.9 (11.0-16.0) % Plt Count 191 (160-400) X10*3/uL MPV 8.5 L (9.4-12.3) fL Immature Gran % (Auto) 0.4 (0.0-0.4) % Neut % (Auto) 76.2 H (45-73) % Lymph % (Auto) 15.7 L (20-40) % [place] % (Auto) 7.3 (2-11) % Eos % (Auto) 0.0 (0-4) % Baso % (Auto) 0.4 (0-2) % Lymph # (Auto) 0.8 L (1.2-4.9) X10*3/uL [place] # (Auto) 0.4 (0.1-1.2) X10*3/uL Eos # (Auto) 0.0 (0.0-0.4) X10*3/uL Baso # (Auto) 0.0 (0.0-0.2) X10*3/uL Abs Immat Gran (auto) 0.02 (0.00-0.03) X10*3/uL Absolute Neuts (auto) 3.9 (2.0-8.3) x10*3/uL Absolute Nucleated RBC 0.000 (0.0-0.012) X10*3/uL Nucleated RBC % (auto) 0.0 (0.0-0.2) /100WBC D-Dimer High Sensitivty < 150 NG/ML Sodium 143 (135-145) mmol/L Potassium 4.3 (3.3-5.1) mmol/L Chloride 105 (96-108) mmol/L Carbon Dioxide 27 (22-29) mmol/L Anion Gap 15 (12-20) BUN 29 H (9-16) mg/dL Creatinine 1.96 H (0.5-1.4) mg/dL Estim Creat Clear Calc 26.1 Estimated GFR 26 Random Glucose 94 (60-115) mg/dL Calcium 9.8 (8.4-10.2) mg/dL Magnesium 2.0 (1.6-2.6) mg/dL Total Bilirubin 0.4 (0.0-1.0) mg/dL Direct Bilirubin 0.2 (0.0-0.5) mg/dL AST 27 (5-31) U/L ALT 28 (0-31) U/L Alkaline Phosphatase 41 (39-117) U/L Troponin I High Sens < 2.7 (<3.5-17.0) ng/L Total Protein 6.9 (6.5-8.0) g/dL Albumin 4.4 (3.5-5.0) g/dL Independent Interpretation I performed an independent interpretation of an: EKG Interpretation: Rate: 64 Rhythm: NSR [place]: left Normal P waves. Normal DAVID. Normal QRS complex. ST T wave : inverted t waves V1-V2, no [id number] qTC: 437 prior studies: no acute ischemia The study has been interpreted contemporaneously by me. . Discharge Plan Discharge Clinical Impression: Atypical chest pain, Anxiety Patient Disposition: Home, Self-Care Instructions: Chest Pain (ED), Anxiety (ED) Additional Instructions: EKG reassuring labs for heart and blood clot test negative you CT scan likely requires repeat CT scans with your doctor to monitor the nodules Prescriptions: No Action trazodone 50 mg Tablet 50 mg PO BEDTIME PRN (Reason: Insomnia) 30 Days Qty: 30 0RF ziprasidone HCl 80 mg capsule 80 mg PO BIDWM 30 Days Qty: 60 0RF simvastatin 40 mg tablet 40 mg PO BEDTIME 30 Days Qty: 30 0RF ziprasidone HCl 20 mg Capsule 20 mg PO BIDWM 30 Days Qty: 60 0RF Rx Instructions: give with food (meal/snack) chlorpromazine 25 mg Tablet 50 mg PO DAILY 30 Days Qty: 60 0RF chlorpromazine 25 mg Tablet 75 mg PO BEDTIME 30 Days Qty: 90 0RF levothyroxine 125 mcg Tablet 125 mcg PO DAILY@0600 30 Days Qty: 30 0RF trihexyphenidyl 2 mg tablet 2 mg PO QAM 30 Days Qty: 30 0RF lamotrigine 25 mg tablet 50 mg PO BID famotidine 20 mg tablet 20 mg PO BEDTIME omeprazole 20 mg capsule,delayed release(DR/EC) 20 mg PO DAILY lamotrigine 200 mg tablet 200 mg PO BEDTIME clonazepam 0.25 mg tablet,disintegrating 0.25 mg PO TID PRN (Reason: anxiety) ascorbic acid (vitamin C) [Vitamin C] 1,000 mg Tablet 1,000 mg PO DAILY calcium carbonate 600 mg calcium (1,500 mg) Tablet 600 mg PO DAILY cholecalciferol (vitamin D3) [Vitamin D3] 25 mcg (1,000 unit) Capsule 25 mcg PO DAILY coenzyme Q10 [CoQ-10] 100 mg Capsule 100 mg PO DAILY Centrum Silver Women 8 mg iron-400 mcg-50 mcg Tablet 1 tab PO DAILY Print Language: Scottish
[2024-10-27 05:20] LABS: Basophils Percent Auto 0.4 % (0-2); Hematocrit 34.6 % (37.0-47.0); Hemoglobin 12.4 g/dl (12.0-16.0); Imm Gran Abs Auto 0.02 X10*3/uL (0.00-0.03); Imm Gran Pct Auto 0.4 % (0.0-0.4); Lymphocytes Absolute Auto 0.8 X10*3/uL (1.2-4.9); Lymphocytes Percent Auto 15.7 % (20-40); MANUAL DIFF FLAG NO; Mean Corpuscular HGB Conc 35.8 g/dl (31.0-35.0); Mean Corpuscular Hemoglobin 31.4 pg (27.0-33.0); Mean Corpuscular Volume 87.6 fL (80.0-98.0); Mean Platelet Volume 8.5 fL (9.4-12.3); Monocytes Absolute Auto 0.4 X10*3/uL (0.1-1.2); Monocytes Percent Auto 7.3 % (2-11); Neutrophils Absolute Auto 3.9 x10*3/uL (2.0-8.3); Neutrophils Percent Auto 76.2 % (45-73); Platelet Count 191 X10*3/uL (160-400); Red Blood Count 3.95 X10*6/uL (4.20-5.50); Red Cell Distribution Width 11.9 % (11.0-16.0); White Blood Count 5.1 X10*3/uL (4.8-10.8)
[2024-10-27 05:28] LABS: D Dimer High Sensitivity < 150 NG/ML
[2024-10-27 05:34] LABS: Alanine Aminotransferase 28 U/L (0-31); Albumin Level 4.4 g/dL (3.5-5.0); Alkaline Phosphatase 41 U/L (39-117); Anion Gap 15 (12-20); Aspartate Amino Transferase 27 U/L (5-31); Bilirubin Direct 0.2 mg/dL (0.0-0.5); Bilirubin Total 0.4 mg/dL (0.0-1.0); Blood Urea Nitrogen 29 mg/dL (9-16); Calcium 9.8 mg/dL (8.4-10.2); Carbon Dioxide 27 mmol/L (22-29); Chloride 105 mmol/L (96-108); Creatinine Clr Calc Pharmacy 26.1; Estimated Glomerular Filt Rate 26; Glucose Random 94 mg/dL (60-115); Potassium 4.3 mmol/L (3.3-5.1); Sodium 143 mmol/L (135-145); Total Protein 6.9 g/dL (6.5-8.0)
[2024-10-27 05:40] LABS: Troponin-I High Sensitivity < 2.7 ng/L (<3.5-17.0)
[2024-10-27 06:09] VITALS: BP 128/93; PULSE 91; RESP 16; TEMP 36.8; O2SAT 99
== END 2024-10-27 06:09 | disposition home or self-care (01) ==
PROVIDERS: Emergency Provider Emergency Medicine; PCP Family Medicine
DX: R07.89 Other chest pain (principal); F41.9 Anxiety disorder, unspecified; Z87.891 Personal history of nicotine dependence
CPT/HCPCS: 36415; 80048; 80076; 83735; 84484; 85025; 85379; 93005; 99283; 99285

== ENCOUNTER → 2024-10-27 04:51 | Outpatient (BNV) | payer MEDICARE, MEDICAID, SELFPAY | PROVIDERS: Emergency Provider Emergency Medicine; PCP Family Medicine; Visit Provider Internal Medicine | DX: R07.9 Chest pain, unspecified (principal) | CPT/HCPCS: 93010 ==

== ENCOUNTER 2025-04-28 09:38 | Outpatient (REF) | payer MEDICARE, MEDICAID, SELFPAY ==
[2025-04-28 13:35] LABS: MANUAL DIFF FLAG NO
[2025-04-28 13:42] LABS: Basophils Percent Auto 0.4 % (0-2); Hematocrit 33.5 % (37.0-47.0); Hemoglobin 11.3 g/dl (12.0-16.0); Imm Gran Abs Auto 0.01 X10*3/uL (0.00-0.03); Imm Gran Pct Auto 0.2 % (0.0-0.4); Lymphocytes Absolute Auto 0.7 X10*3/uL (1.2-4.9); Lymphocytes Percent Auto 13.8 % (20-40); Mean Corpuscular HGB Conc 33.7 g/dl (31.0-35.0); Mean Corpuscular Hemoglobin 30.5 pg (27.0-33.0); Mean Corpuscular Volume 90.5 fL (80.0-98.0); Monocytes Absolute Auto 0.3 X10*3/uL (0.1-1.2); Monocytes Percent Auto 6.4 % (2-11); Neutrophils Absolute Auto 4.2 x10*3/uL (2.0-8.3); Neutrophils Percent Auto 79.2 % (45-73); Platelet Count 189 X10*3/uL (160-400); Red Cell Distribution Width 11.9 % (11.0-16.0); White Blood Count 5.3 X10*3/uL (4.8-10.8)
[2025-04-28 14:19] LABS: Thyroid Stimulating Hormone 0.01 uIU/mL (0.32-4.0)
== END 2025-04-28 09:39 | disposition home or self-care (01) ==
LOC: HO.HMGCLDS 09:38
PROVIDERS: PCP Family Medicine; Visit Provider Family Medicine
DX: E03.9 Hypothyroidism, unspecified (principal); D64.9 Anemia, unspecified
CPT/HCPCS: 36415; 84439; 84443; 85025

== ENCOUNTER 2025-06-13 10:33 | Outpatient (REF) | payer MEDICARE, MEDICAID, SELFPAY ==
--- NOTE | ~2025-06-13 | MM_ITS ---
EXAMINATION: MM DIAGNOSTIC DIGITAL BREAST TOMOSYNTHESIS, BILATERAL Bilateral Limited ultrasound. CLINICAL INFORMATION: Right breast multiple areas of pain left breast 2 areas of palpable lumps. COMPARISON: Mammography: Comparison is made with relevant prior exams. TECHNIQUE: Digital breast mammography with tomosynthesis is performed in both the craniocaudal and mediolateral oblique views along with computer-aided detection (CAD). FINDINGS: There are scattered areas of fibroglandular density (ACR BI-RADS breast composition Category b). Right triangular marker denoting site of patient's pain without underlying abnormal findings. 2. BB markers in the left breast at site of palpable lumps without abnormal underlying finding. There are no significant masses, abnormal calcifications, or other abnormalities. Targeted color Doppler ultrasound scanning in the areas of patient's pain and palpable lumps right breast upper outer quadrant upper inner quadrant demonstrates normal fibronodular breast tissue. Left breast tenderness 2:00 and 4-8 o'clock demonstrates normal fibronodular breast tissue. Results are provided to the patient at time of visit by the technologist. MM/MM tomosynthesis diagnostic BI IMPRESSION: No mammographic or sonographic abnormal findings in the bilateral breasts to account for the patient's bilateral palpable lumps and areas of pain. Recommend clinical evaluation and follow-up. ASSESSMENT: BI-RADS BI-RADS 1 - Negative RECOMMENDATION: 1 year F/U This patient's information was entered into a reminder system with a target due date for their next mammogram. Electronically signed by: Robyn Rojo DO 06/13/2025 12:38 PM EDT
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
--- OUTSIDE RECORDS SUMMARY | 2025-06-13 11:24 | XMS_ITS ---
Author Name [facility] Organization Unknown Results Test Name/Text Value Interpretation Date Range Source POTASSIUM SERPL SCNC 3.9 mmol/L Normal 04/16/2024 3.5 - 5 .1 [facility] CHLORIDE SERPL SCNC 109.0 mmol/L Above high normal 4 98 - 107 [facility] CREAT SERPL MCNC 1.6 mg/dL Above high normal 04/16/2024 0.5 - 1 [facility] Glomerular filtration rate/1.73 sq M. predicted 35.0 Below low normal 04/16/2024 60 - [facility] SODIUM SERPL SCNC 142.0 mmol/L Normal 04/16/2024 135 - 14 5 [facility] CALCIUM SERPL MCNC 8.8 mg/dL Normal 04/16/2024 8.4 - 10.2 [facility] BUN SERPL MC[facility] 22.0 mg/dL Above high normal 04/16/2024 7 - 1 7 [facility] ANION GAP SERPL SCNC 11.0 mmol/L Normal 04/16/2024 5 - 14 [facility] GLUCOSE SERPL MCNC 156.0 mg/dL Normal 04/16/2024 70 - 199 [facility] HCO3 SER SCNC 22.0 mmol/L Below low normal 04/16/2024 24 - 3 2 [facility] PLATELET NO. BLD AUTO 212.0 K/uL Normal 04/16/2024 150 - 450 [facility] PMV BLD AUTO 6.9 fL Below low normal 04/16/2024 7.4 - 11. 4 [facility] RBC NO. BLD AUTO 3.62 M/uL Below low normal 04/16/2024 4.2 - 5.4 [facility] MCV RBC AUTO 90.2 fL Normal 04/16/2024 78 - 100 [facility] MCH RBC QN AUTO 31.6 pg Normal 04/16/2024 25 - 33 [facility] HCT VFR BLD AUTO 32.6 % Below low normal 04/16/2024 37 - 47 [facility] WBC NO. BLD AUTO 6.7 K/uL Normal 04/16/2024 4 - 10.5 [facility] MCHC RBC AUTO MCNC 35.0 g/dL Normal 04/16/2024 32 - 36 [facility] HGB BLD MCNC 11.4 g/dL Below low normal 04/16/2024 12.5 - 16 [facility] RDW RBC AUTO RTO 12.7 % Normal 04/16/2024 12.1 - 16.2 [facility] MAGNESIUM SERPL MCNC 1.9 mg/dL Normal 04/16/2024 1.7 - 2. 8 [facility] LACTATE SERPL SCNC 1.0 mmol/L Normal 04/15/2024 0.5 - 2 [facility] CREAT SERPL MCNC 1.6 mg/dL Above high normal 04/15/2024 0.5 - 1 [facility] POTASSIUM SERPL SCNC 4.0 mmol/L Normal 04/15/2024 3.5 - 5 .1 [facility] CALCIUM SERPL MCNC 9.1 mg/dL Normal 04/15/2024 8.4 - 10.2 [facility] SODIUM SERPL SCNC 142.0 mmol/L Normal 04/15/2024 135 - 14 5 [facility] Glomerular filtration rate/1.73 sq M. predicted 35.0 Below low normal 04/15/2024 60 - [facility] BUN SERPL MCNC 26.0 mg/dL Above high normal 04/15/2024 7 - 1 7 [facility] GLUCOSE SERPL MCNC 82.0 mg/dL Normal 04/15/2024 70 - 199 [facility] ANION GAP SERPL SCNC 11.0 mmol/L Normal 04/15/2024 5 - 14 [facility] HCO3 SER SCNC 25.0 mmol/L Normal 04/15/2024 24 - 32 [facility] CHLORIDE SERPL SCNC 106.0 mmol/L Normal 04/15/2024 98 - 1 07 [facility] BASOPHILS IN BLOOD BY AUTOMATED COUNT 0.0 K/uL Normal 04/15/2024 0 - 0.2 [facility] DIFFERENTIAL TYPE AUTOMATED Normal 04/15/2024 C [facility] RBC NO. BLD AUTO 3.58 M/uL Below low normal 04/15/2024 4.2 - 5.4 [facility] MONOCYTES NO. BLD AUTO 0.7 K/uL Normal 04/15/2024 0 - 0.8 [facility] LYMPHOCYTES NFR BLD AUTO 11.6 % Below low normal 04/15/2024 20 - 48 [facility] EOSINOPHIL NO. BLD AUTO 0.0 K/uL Normal 04/15/2024 0 - 0.5 [facility] WBC NO. BLD AUTO 8.3 K/uL Normal 04/15/2024 4 - 10.5 [facility] BASOPHILS NFR BLD AUTO 0.2 % Normal 04/15/2024 0 - 2 [facility] HCT VFR BLD AUTO 32.8 % Below low normal 04/15/2024 37 - 47 [facility] NEUTROPHILS NO. BLD AUTO 6.6 K/uL Normal 04/15/2024 1.8 - 7.8 [facility] HGB BLD MCNC 11.2 g/dL Below low normal 04/15/2024 12.5 - 16 [facility] RDW RBC AUTO RTO 12.6 % Normal 04/15/2024 12.1 - 16.2 [facility] EOSINOPHIL NFR BLD AUTO 0.0 % Normal 04/15/2024 0 - 6 [facility] MCH RBC QN AUTO 31.4 pg Normal 04/15/2024 25 - 33 [facility] PMV BLD AUTO 7.0 fL Below low normal 04/15/2024 7.4 - 11. 4 [facility] MONOCYTES NFR BLD AUTO 8.5 % Normal 04/15/2024 2 - 12 [facility] MCHC RBC AUTO MCNC 34.3 g/dL Normal 04/15/2024 32 - 36 [facility] MCV RBC AUTO 91.6 fL Normal 04/15/2024 78 - 100 [facility] NEUTROPHILS NFR BLD AUTO 79.7 % Above high normal 04/15/2024 44 - 74 [facility] PLATELET NO. BLD AUTO 204.0 K/uL Normal 04/15/2024 150 - 450 [facility] LYMPHOCYTES NO. BLD AUTO 1.0 K/uL Normal 04/15/2024 1 - 3.2 [facility] History of Medication Use Medication Directions Dispensed Refills Start Date End Date Stat ciprofloxacin (CIPRO) 500 MG tablet Take 1 tablet (500 mg total) by mouth 2 (two) times a day for 10 days. 04/17/2024 4 active metroNIDAZOLE (FLAGYL) 250 MG tablet Take 1 tablet (250 mg total) by mouth 3 (three) times a day for 10 days. 04/17/2024 4 active iopamidol (ISOVUE-370) 76 % injection 60 mL 60 mL, Intravenous, IMG once as needed, contrast, Starting on 04/17/24 at 1851, For 1 dose, Radiology ContrastLot #: [id number] 04/17/2024 4 completed atorvastatin (LIPITOR) tablet 20 mg 20 mg, Oral, Every Evening, First dose on Fri04/15/24 at 2100Pregnancy Risk Factor Category: X 04/16/2024 active heparin (porcine) injection 5,000 Units 5,000 Units, Subcutaneous, Every 8 hours, First dose on Fri04/15/24 at 2200 04/16/2024 active levothyroxine (SYNTHROID) tablet 125 mcg 125 mcg, Oral, Every Morning on an empty stomach (Daily), First dose on Fri04/16/24 at 0600 04/16/2024 active traZODone (DESYREL) tablet 50 mg 50 mg, Oral, Every Night at Bedtime, First dose on Fri04/15/24 at 2200 04/16/2024 active oxyCODONE (ROXICODONE) 5 MG immediate release tablet 2.5 mg 2.5 mg, Oral, Every 6 hours PRN, moderate pain (4-6), severe pain (7-10), Starting on Fri04/15/24 at 1940 04/15/2024 active ziprasidone (GEODON) capsule 80 mg 80 mg, Oral, 2 times daily with meals, First dose on Fri04/15/24 at 1700May cause prolongation of QT interval. Take with food. 80mg plus 20mg / dose Reproductive/Breas t Feeding Risk: Use appropriate precautions for handling and disposal. 04/15/2024 active lamoTRIgine (LaMICtal) 25 MG tablet Take 1 tablet (25 mg total) by mouth daily. 4 aborted Allergies Allergen Reaction Severity Comment Documented Date Source Statu s OLANZAPINE Tongue movements 04/15/2024 [facility] active ARIPIPRAZOLE [facility] ASPIRIN Stomach problems [facility] BENZTROPINE Memory loss, nervousness, dizziness, dry mouth, confusion, unclear thinking [facility] BUPROPION Ringing in ears, dizziness [facility] ERYTHROMYCIN Abdominal pain [facility] IBUPROFEN Stomach problems [facility] PENICILLIN V HIVES [facility] PERPHENAZINE Leg movements, falls [facility] PROPRANOLOL wheezing [facility] RISPERIDONE Tongue movements [facility] SULFAMETHOXAZOLE-TR IMETHOPRIM DIARRHEA [facility] Problems Problem Status Onset Date Problem Type Date of Resolution Source Dental abscess active 2024-04-15 ProblemAct [facility] Facial cellulitis active EncounterDiagnosisAct [facility] Encounters Encounter Type Encounter Reason Primary Diagnosis Location Date Emergency Periapical abscess without sinus Periapical abscess without sinus [facility] 04/17/2024 Inpatient Cutaneous abscess of face Cutaneous abscess of face [facility] 04/15/2024 Care Team Organization Name Specialty Phone Email Start Date End Da te [facility] 4 [facility] 4 [facility] JENNIFER BETTS Primary Care 04/15/2024
--- OUTSIDE RECORDS SUMMARY | 2025-06-13 11:24 | XMS_ITS | Clinical Summary ---
Author Organization [facility] Address [address] [place] [address] Care Team Providers Care Medicare Sales Representative Name Role Phone Lino Parker MD Primary Care Provider [phone] Allergies Active Allergy Reactions Criticality Noted Date Comments Aripiprazole 04/15/2024 Aspirin 04/15/2024 Stomach problems Sulfamethoxazole-Trimethopri m Diarrhea 04/15/2024 Bupropion 04/15/2024 Ringing in ears, dizziness Benztropine 04/15/2024 Memory loss, nervousness, dizziness, dry mouth, confusion, unclear thinking Erythromycin 04/15/2024 Abdominal pain Propranolol 04/15/2024 wheezing Ibuprofen 04/15/2024 Stomach problems Penicillin V Hives High 04/15/2024 Risperidone 04/15/2024 Tongue movements Perphenazine 04/15/2024 Leg movements , falls Olanzapine 04/15/2024 Tongue movements Medications Medication Sig Dispensed Refills Start Date End Date Status lamoTRIgine (LaMICtal) 100 MG tablet Take 2 tablets (200 mg total) by mouth every night at bedtime. 0 Active levothyroxine (SYNTHROID) tablet 125 mcg Take 1 tablet (125 mcg total) by mouth every morning on an empty stomach. 0 Active simvastatin (ZOCOR) tablet 40 mg Take 1 tablet (40 mg total) by mouth every night at bedtime. 0 Active traZODone (DESYREL) 50 MG tablet Take 1 tablet (50 mg total) by mouth every night at bedtime. Take 1 tablet in the evening and 1 tablet as needed at bedtime 0 Active clonazePAM (KlonoPIN) 0.25 MG disintegrating tablet Take 1 tablet (0.25 mg total) by mouth 3 (three) times a day as needed for anxiety. 0 Active ziprasidone (GEODON) 20 MG capsule Take 1 capsule (20 mg total) by mouth 2 (two) times a day with meals. 0 Active trihexyphenidyl (ARTANE) 2 MG tablet Take 1 tablet (2 mg total) by mouth daily. 0 Active chlorproMAZINE (THORAZINE) 25 MG tablet Take 2 tablets (50 mg total) by mouth 2 (two) times a day. 0 Active lamoTRIgine (LaMICtal) 25 MG tablet Take 2 tablets (50 mg total) by mouth 2 (two) times a day. 0 Active omeprazole (PriLOSEC) 20 MG capsule Take 1 capsule (20 mg total) by mouth daily. 0 Active Coenzyme Q10 (Co Q 10) 10 MG CAPS Take 1 capsule by mouth daily. 0 Active Multiple Vitamins-Minerals (Centrum Silver 50+Women) TABS Take 1 tablet by mouth daily. 0 Active Calcium Carb-Cholecalciferol (CALCIUM 600 + D PO) Take 1 tablet by mouth daily. 0 Active Ascorbic Acid (vitamin C) 1000 MG tablet Take 1 tablet (1,000 mg total) by mouth daily. 0 Active vitamin D3 (cholecalciferol) 25 MCG (1000 UT) tablet Take 1 tablet (25 mcg total) by mouth daily. 0 Active ziprasidone (GEODON) 80 MG capsule Take 1 capsule (80 mg total) by mouth 2 (two) times a day with meals. 0 Active oxyCODONE-acetaminophen (PERCOCET) 5-325 MG per tablet Take 1 tablet by mouth every 8 (eight) hours as needed for pain. 10 tablet 0 04/16/2024 Active Active Problems Problem Noted Date Diagnosed Date Dental abscess 04/15/2024 Social History Tobacco Use Types Packs/Day Years Used Date Smoking Tobacco: Never Assessed Sex and Gender Information Value Date Recorded Sex Assigned at Female 04/15/2024 2:16 PM EDT Gender Identity Not on file Sexual Orientation Not on file Job Start Date Occupation Industry Not on file Not on file Not on file Last Filed Vital Signs Vital Sign Reading Time Taken Comments Blood Pressure 162/78 04/17/2024 8:27 PM EDT Pulse 86 04/17/2024 8:27 PM EDT Temperature 36.8 C (98.3 F) 04/17/2024 8:27 PM EDT Respiratory Rate 18 04/17/2024 8:27 PM EDT Oxygen Saturation 98% 04/17/2024 8:27 PM EDT Inhaled Oxygen Concentration - - Weight 63 kg (139 lb) 04/15/2024 1:36 PM EDT Height 160 cm (5' 3 ) 04/15/2024 1:36 PM EDT Body Mass Index 24.62 04/15/2024 1:36 PM EDT Plan of Treatment Health Maintenance Due Date Last Done Comments Hepatitis C Screening 1960 COVID-19 Vaccine (#1) 1958 Depression Screening 1970 Preventative Health Evaluation 1976 DTap / Tdap / Td (1 - Tdap) 1977 Colon Cancer Screening (Colonoscopy) 2003 Breast Cancer Screening (Mammogram) 2008 Shingrix-Zoster Vaccine (1 of 2) 2008 Fall Risk Assessment 2023 Osteoporosis Screening (DEXA Scan) 2023 Pneumococcal Vaccine (1 of 1 - PCV) 2023 Influenza Vaccine (#1) 2025 RSV Adult > 60+ Yrs or Pregn ant (1 - 1-dose 75+ series) 2033 Hepatitis B Vaccines Aged Out No long er eligible based on patient's age to complete this topic RSV Ped < 20 months Aged Out No longe r eligible based on patient's age to complete this topic Advance Directives For more information, please contact: [phone] Latest Code Status on File Code Status Date Activated Date Inactivated Comments Full Code 04/15/2024 2:24 PM 04/17/2024 1:26 AM This code status was ascertained in the following way: discussion with patient . Care Teams Medicare Sales Representative Relationship Specialty Start Date End Date Lino Parker MD [address] [place] [address] [place] [address] PCP - General Internal Medicine 04/15/24
--- OUTSIDE RECORDS SUMMARY | 2025-06-13 11:25 | XMS_ITS | Clinical Summary ---
Author Organization [facility] Address [address] [place] [address] Phone Care Team Providers Care Director Hair Name Role Phone Lino Parker MD Primary Care Provider [phone] Allergies Active Allergy Reactions Criticality Noted Date Comments Aripiprazole 07/20/2018 Aspirin 07/20/2018 Benztropine 07/20/2018 Bupropion 07/20/2018 Erythromycin 07/20/2018 Ibuprofen 07/20/2018 Olanzapine 07/20/2018 Penicillins 07/20/2018 Perphenazine 07/20/2018 Propranolol 07/20/2018 Risperidone 07/20/2018 Sulfamethoxazole-Trimethoprim 2017 Medications ASCORBIC ACID, VITAMIN C, ORAL Take by mouth daily. Active CHOLECALCIFEROL , VITAMIN D3, ORAL Take by mouth daily. Active ubidecarenone (COENZYME Q10 ORAL) Take by mouth daily. Active multivitamin/ir on/folic acid (CENTRUM ORAL) Take by mouth daily. Active clonazePAM (KlonoPIN) 0.5 mg tablet Take 0.5 mg by mouth 3 times daily as needed. Active fluoride, sodium, (Clinpro 5000) 1.1 % paste Place onto teeth daily. Active lamoTRIgine (LaMICtal) 100 mg tablet Take 200 mg by mouth daily. Active lamoTRIgine (LaMICtal) 25 mg tablet Take 50 mg by mouth daily. Active levothyroxine sodium (TIROSINT) 125 mcg capsule Take 125 mg by mouth daily. Active simvastatin (ZOCOR) 80 mg tablet Take 80 mg by mouth at bedtime. Active trihexyphenidyL (ARTANE) 2 mg tablet Take 2 mg by mouth every morning. Active ziprasidone (GEODON) 20 mg capsule Take 1 Capsule by mouth at bedtime. Active ziprasidone (GEODON) 80 mg capsule Take 1 Capsule by mouth 2 times daily (with meals). Active Active Problems Problem Noted Date Diagnosed Date Left foot pain 11/15/2024 Bunion, left 11/15/2024 Hammertoes of both feet 11/15/2024 Dissociative identity disorder ([facility] [place] V24, [facility] V28) 07/20/2018 Hyperlipidemia 07/20/2018 Hypothyroidism 07/20/2018 Mood disorder ([facility] [place] V24) 07/20/2018 PTSD (post-traumatic stress disorder) 07/20/2018 Medical History Medical History Date Comments Other bipolar disorder ([facility] V24, [facility] [place] V28) DX:Other bipolar disorder ([facility]) Post-traumatic stress disord er, unspecified DX:Post-traumatic stress dis order, unspecified 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[facility] [place] V24, [facility] [place] V28) DX:Dissociative identity dis order ([facility]) Mood disorder ([facility] [place] V24) DX:M ood disorder ([facility]) No diagnosis on Sharon II DX:No di agnosis on Sharon II Social History Tobacco Use Types Packs/Day Years Used Date Smoking Tobacco: Never Assessed Comments Unknown Sex and Gender Information Value Date Recorded Sex Assigned at Not on file Legal Sex Female 7:54 AM EST Gender Identity Not on file Sexual Orientation Not on file Obstetrics History Last Filed Vital Signs Vital Sign Reading Time Taken Comments Blood Pressure 132/68 02/19/2023 1:29 PM EDT Sit ting L Arm Pulse 95 02/19/2023 1:29 PM EDT Temperature - - Respiratory Rate - - Oxygen Saturation - - Inhaled Oxygen Concentration - - Weight 60.8 kg (134 lb) 11/15/2024 10:40 AM EST Height 165.1 cm (5' 5 ) 11/15/2024 10:40 AM EST Body Mass Index 22.3 11/15/2024 10:40 AM EST Plan of Treatment Health Maintenance Due Date Last Done Comments Breast Cancer Screening 1960 Pneumococcal Vaccine: 50+ Years (1 of 1 - PCV) 2008 Cholesterol Screening (Lipid Panel) 11/09/2022 Colorectal Cancer Screening: Colonoscopy 11/09/2022 Depression Screening 11/09/2022 Hepatitis C Screening 11/09/2022 Medicare Annual Wellness Visit 11/09/2022 Osteoporosis Screening (Bone Density Screening) 11/09/2022 Social Influencers of Health Screening 11/09/2022 Falls Risk Assessment 2023 COVID-19 Vaccine ( season) 2024 01/27/2024, 10/16/2022, 11/29/2021, Additional history exists Influenza Vaccine (#1) 2025 , 09/30/2023, 12/27/2022, Additional history exists DTaP,Tdap,and Td Vaccines (2 - Td or Tdap) 05/26/2032 05/26/2022 RSV Immunization Adult Patients (1 - 1-dose 75+ series) 2033 Zoster Vaccines Completed 02/17/2024, 07/25/2023 HIB Vaccines Aged Out No longer eligi ble based on patient's age to complete this topic HPV Vaccines Aged Out No longer eligi ble based on patient's age to complete this topic Hepatitis A Vaccines Aged Out No long er eligible based on patient's age to complete this topic Hepatitis B Vaccines Aged Out No long er eligible based on patient's age to complete this topic IPV Vaccines Aged Out No longer eligi ble based on patient's age to complete this topic MMR Vaccines Aged Out No longer eligi ble based on patient's age to complete this topic Meningococcal ACWY Vaccine Aged Out N o longer eligible based on patient's age to complete this topic Meningococcal B Vaccine Aged Out No l onger eligible based on patient's age to complete this topic RSV Immunization Patients Under 20 months Aged Out No longer eligible based on patient's age to complete this topic Varicella Vaccines Aged Out No longer eligible based on patient's age to complete this topic Insurance MEDICARE MEDICAID - [place] Care Teams Director Hair Relationship Specialty Start Date End Date Lino Parker MD [address] [place] [address] [place] [address] PCP - General Internal Medicine 07/13/18
--- OUTSIDE RECORDS SUMMARY | 2025-06-13 11:25 | XMS_ITS | Encounter Summary ---
Author Organization [facility] Address [address] [facility] [address] [place] [address] Care Team Providers Care Centrifugal Separator Name Role Phone Unavailable Primary Care Provider Unavailabl e Reason for Visit * Reason Onset Date Comments Extraction aftercare 05/11/2025 Encounter Details Date Type Department Care Team (Late st Contact Info) Description 05/11/2025 Telephone [facility] [address] [place] [address] Hardeep Gibson, DMD [address] [place] [address] Extraction aftercare Social History Tobacco Use Types Packs/Day Years Used Date Smoking Tobacco: Never Assessed Comments Unknown Sex and Gender Information Value Date Recorded Sex Assigned at Female 02/28/2025 11:56 AM EDT Legal Sex Female 11:51 AM EDT Gender Identity Female 02/28/2025 11:56 AM EDT Sexual Orientation Choose not to disclose 2024 11:56 AM EDT documented as of this encounter Miscellaneous Notes * Telephone Encounter - Nayely Palacio - 05/11/2025 2:53 PM EDT Patient is calling in for reminder on extraction aftercare. She did say that it was explained to her however she is confused and would like a follow up call. Sent to both clinical support and front of house manager documented in this encounter Plan of Treatment Not on file documented as of this encounter Visit Diagnoses Not on filedocumented in this encounter
== END 2025-06-13 10:34 | disposition home or self-care (01) ==
LOC: HO.MAMMO 10:33
PROVIDERS: Absent Provider Internal Medicine; PCP Internal Medicine; Visit Provider Family Medicine
DX: N63.15 Unspecified lump in the right breast, overlapping quadrants (principal); N63.25 Unspecified lump in the left breast, overlapping quadrants
CPT/HCPCS: 76642; 77062; 77066

== ENCOUNTER → 2025-06-13 11:30 | Outpatient (BNV) | payer MEDICARE, MEDICAID, SELFPAY | PROVIDERS: Absent Provider Internal Medicine; PCP Internal Medicine; Visit Provider Internal Medicine | DX: N64.4 Mastodynia (principal); N63.25 Unspecified lump in the left breast, overlapping quadrants | CPT/HCPCS: 76642; 77066; G0279 ==

== ENCOUNTER 2025-06-27 12:47 | Emergency (ER) | payer MEDICARE, MEDICAID, SELFPAY ==
--- NOTE | ~2025-06-27 | CT_ITS ---
EXAMINATION: CT HEAD WITHOUT CONTRAST CLINICAL INFORMATION: posterior head strike COMPARISON: June 15, 2024 TECHNIQUE: Contiguous axial imaging was performed from the skull base to vertex without intravenous administration of contrast. This CT examination was performed using dose optimization techniques as appropriate, variously including the following: *Automated exposure control *Adjustment of mA and/or kV according to patient size (this includes techniques or standardized protocols for targeted exams where dose is matched to indication/reason for exam; i.e. extremities or head) *Use of iterative reconstruction technique DLP: 769.17 mGy-cm FINDINGS: No acute cortical disruption within the bony calvarium or the skull base. No acute intracranial hemorrhage, mass effect, midline shift, hydrocephalus or herniation. De León-white matter differentiation is normal. Posterior cranial fossa contents demonstrated no acute hemorrhage or gross mass effect. Sellar/suprasellar region demonstrated no gross masses. Bilateral multifocal patchy and confluent deep periventricular white matter hypodensities involving mostly the occipital poles. Calcified plaques in the basilar artery Prominence of the extra-axial CSF spaces and cerebral sulci involving mostly the temporoparietal poles. No air-fluid levels in the included paranasal sinuses. Tympanic cavities and mastoid air cells are aerated. No acute hemorrhage in the intraconal or the extraconal compartments of the orbits. CT/CT head/brain wo IV con IMPRESSION: No acute fracture, bony calvarium. No acute intracranial hemorrhage. Small vessel occlusive disease. Electronically signed by: Michoacano Sparrow MD 06/27/2025 03:26 PM EDT
--- NOTE | ~2025-06-27 | CT_ITS ---
EXAMINATION: CT CERVICAL SPINE WITHOUT CONTRAST CLINICAL INFORMATION: Status post fall. COMPARISON: May 16, 2024. TECHNIQUE: Do sagittal images through the cervical spine using 3 mm collimation with bone and soft tissue algorithm. Sagittal and coronal reformatted images acquired. DLP: 270.[address] examination was performed using dose optimization techniques as appropriate, variously including the following: *Automated exposure control *Adjustment of mA and/or kV according to patient size (this includes techniques or standardized protocols for targeted exams where dose is matched to indication/reason for exam; i.e. extremities or head) *Use of iterative reconstruction technique FINDINGS: There are craniocervical junction is intact with normal alignment between the occipital condyles and the lateral masses of C1. Degenerative changes in the periodontal C1 region. Multilevel syndesmophyte formation and marginal osteophyte formation and endplate sclerosis and decreased intervertebral disc height C4 C7. Grade 1 anterolisthesis C2-3. Bilateral facet joint hypertrophy pronounced at C2-3 and C3-4 levels. C1 is intact. C2 is intact. C3 is intact. Bilateral facet joint hypertrophy. C4 is intact. Bilateral facet joint hypertrophy. C5 is intact. Bilateral facet joint hypertrophy. C6 is intact. Left facet joint hypertrophy. C3 7 is intact. No prevertebral compartment hematoma. Status post total thyroidectomy. Tympanic cavities and mastoid cells are aerated. CT/CT cervical spine wo IV con IMPRESSION: Multilevel cervical spondylosis without acute fracture or trauma-related listhesis. Overall worsening since prior examination. Fleischner guidelines were followed. Electronically signed by: Michoacano Sparrow MD 06/27/2025 03:34 PM EDT
--- NOTE | ~2025-06-27 | XR_ITS ---
EXAMINATION: XR KNEE, RIGHT CLINICAL INFORMATION: fal onto R knee, pain COMPARISON: None available. TECHNIQUE: Four views of the right knee. FINDINGS: No fracture, dislocation, or suspicious bone lesion. Normal bone mineralization. Normal alignment. Minimal medial compartment joint space narrowing. Mild spurring of the tibial spines. No significant joint effusion. Soft tissues appear normal. XR/XR knee RT 4V IMPRESSION: No acute bony abnormalities or evidence of joint effusion. Electronically signed by: Adelso Ponce MD 06/27/2025 03:38 PM EDT
--- NOTE | ~2025-06-27 | XR_ITS ---
EXAMINATION: XR ELBOW, RIGHT CLINICAL INFORMATION: fall R elbow pain COMPARISON: None available. TECHNIQUE: AP, lateral, and oblique views of the right elbow. FINDINGS: The bones and soft tissues are normal. No fracture or joint effusion. Alignment is anatomic. Joint spaces are maintained. XR/XR elbow RT min 3V IMPRESSION: Normal right elbow. Electronically signed by: Adelso Ponce MD 06/27/2025 03:35 PM EDT
[2025-06-27 12:52] VITALS: BP 130/70; PULSE 88; O2SAT 98
[2025-06-27 12:54] VITALS: BP 129/69; PULSE 78; RESP 16; TEMP 36.5; O2SAT 96; BMI 24.8
--- NOTE | 2025-06-27 13:23 | ED.FALL ---
HPI - Fall General Chief Complaint: Fall Stated Complaint: FALL T-1,R KNEE/BACK PAIN,-LOC PER EMS Time Seen by Provider: 06/27/25 13:19 Source: patient Mode of arrival: ambulatory Limitations: no limitations History of Present Illness ED Provider: POLINA CUEVA PA-C HPI Narrative: 65 year old female with pmhx significant for anxiety, depression, PTSD, personality disorder, bipolar disorder, IBS, GERD, hypothyroidism presents to the ED today for evaluation s/p mechanical fall occurring yesterday. She states that while walking from her kitchen to her living room aroun 3pm yesterday, her right leg became caught on her kitchen chair causing her to trip forward and fall onto her right knee and right elbow. Reports striking the back of her head on a door in her kitchen. Denies LOC. She is not on anticoagulation. She is able to stand and ambulate following the fall. She denies any preceding symptoms. She woke up this morning with overall body pain, primarily to right knee, right elbow, right neck and posterior head. Reports mild dizziness and confusion and admits she is concerned she has a concussion. Reports taking Tylenol last night. Related Data Home Medications ?Medication ?Instructions ?Recorded ?Confirmed clonazepam 0.25 mg disintegrating 0.25 mg PO TID PRN anxiety 05/16/24 05/16/24 tablet famotidine 20 mg tablet 20 mg PO BEDTIME Acid Reflux 05/16/24 05/19/24 lamotrigine 200 mg tablet 200 mg PO BEDTIME 05/16/24 05/16/24 lamotrigine 25 mg tablet 50 mg PO BID 05/16/24 05/19/24 omeprazole 20 mg capsule,delayed 20 mg PO DAILY 05/16/24 05/16/24 release ascorbic acid (vitamin C) 1,000 mg 1,000 mg PO DAILY 05/19/24 05/19/24 tablet (Vitamin C) calcium carbonate 600 mg PO DAILY 05/19/24 05/19/24 cholecalciferol (vitamin D3) 25 25 mcg PO DAILY 05/19/24 05/19/24 mcg (1,000 unit) capsule (Vitamin D3) coenzyme Q10 100 mg capsule 100 mg PO DAILY 05/19/24 05/19/24 (CoQ-10) [id number] 8 mg-folic 400 1 tab PO DAILY 05/19/24 05/19/24 mcg-K 50 mcg-lutein 300 [facility]cg tablet [facility] Previous Rx's ?Medication ?Instructions ?Recorded chlorpromazine 25 mg tablet 50 mg (2 x 25 mg) PO DAILY 30 days 12/02/23 #60 tabs chlorpromazine 25 mg tablet 75 mg (3 x 25 mg) PO BEDTIME 30 12/02/23 days #90 tabs levothyroxine 125 mcg tablet 125 mcg PO DAILY@0600 30 days #30 12/02/23 tabs simvastatin 40 mg tablet 40 mg PO BEDTIME 30 days #30 tabs 12/02/23 trazodone 50 mg tablet 50 mg PO BEDTIME PRN Insomnia 30 12/02/23 days #30 tabs trihexyphenidyl 2 mg tablet 2 mg PO QAM 30 days #30 tabs 12/02/23 ziprasidone HCl 20 mg capsule 20 mg PO BIDWM 30 days #60 caps 12/02/23 ziprasidone HCl 80 mg capsule 80 mg PO BIDWM 30 days #60 caps 12/02/23 lidocaine 5 % topical patch 1 patch topical DAILY #15 ea 06/27/25 (Lidoderm) Allergies Allergy/AdvReac Type Severity Reaction Status Date / Time Penicillins (PENICILLINS) Allergy Severe HIVES Verified 06/27/25 13:00 sulfamethoxazole (From Allergy Severe DIARRHEA Verified 06/27/25 13:00 BACTRIM) trimethoprim (From BACTRIM) Allergy Severe DIARRHEA Verified 06/27/25 13:00 aripiprazole (From ABILIFY) Allergy Intermediate ATAXIA Verified 06/27/25 13:00 aspirin (ASPIRIN) Allergy Intermediate STOMACH Verified 06/27/25 13:00 CRAMPS benztropine (From COGENTIN) Allergy Intermediate CONFUSION, Verified 06/27/25 13:00 memory loss bupropion (BUPROPION) Allergy Intermediate DIZZINESS Verified 06/27/25 13:00 erythromycin base Allergy Intermediate GI UPSET Verified 06/27/25 13:00 (ERYTHROMYCIN BASE) ibuprofen (From MOTRIN) Allergy Intermediate STOMACH Verified 06/27/25 13:00 CRAMPS olanzapine (From ZYPREXA) Allergy Intermediate TONGUE Verified 06/27/25 13:00 MOVEMENTS perphenazine (From TRILAFON) Allergy Intermediate ARM AND Verified 06/27/25 13:00 LEG MOVEMENTS, FALL risperidone (From RISPERDAL) Allergy Intermediate TONGUE Verified 06/27/25 13:00 MOVEMENT milk Allergy Drowsy Verified 06/27/25 13:00 egg AdvReac Stomach Verified 06/27/25 13:00 Upset From INDERAL Allergy Intermediate WHEEZING Uncoded 10/27/24 04:59 Review of Systems Review of Systems: Yes all other systems are reviewed and are negative ON LICENSE OF [facility] Past Medical History Attestation statement: The following information was validated with the patient. Source: old records reviewed and nursing notes reviewed Medical History Routine medical exam CKD (chronic kidney disease), stage IV Bipolar disorder Neck pain Murmur GERD (gastroesophageal reflux disease) Hypothyroidism Irritable bowel syndrome (IBS) Hyperlipidemia Anxiety and depression Dissociative identity disorder Surgical History Hx of colonoscopy History of total thyroidectomy Social History Social History Household Members: None Household Members Other:: roommate Housing: Apartment Are you a primary wound care rn to a significant other at home: No Do you presently have visiting nurse or other home services: Yes (pt has VNA for only one day prior to admission.) Unable to assess alcohol history related to: Unknown Alcohol intake: never Comment: aware of trip hazard Patient Tobacco Use Status: Former Tobacco user Tobacco use type: Cigarette Cigarette Packs Per Day: 1 Cigarettes Per Day: 20.0 Years Smoked: 20 e-Cigarette/Vaping Use: Never Used Second Hand Smoke Exposure: No Advance Directives: No Advance Directives Information Provided: Yes service: No Sexual orientation: Did not discuss Physical Exam Vital Signs: Vital Signs: Last Vital Signs Temp 97.8 F 06/27/25 14:48 Pulse 73 06/27/25 14:48 Resp 14 06/27/25 14:48 BP 127/72 06/27/25 14:48 Pulse Ox 100 06/27/25 14:48 O2 Del Method Room Air 06/27/25 14:48 BMI result Body Mass Index 24.8 vital signs stable General: Well appearing, in no acute distress. Skin: Warm, dry, intact. No rashes or lesions. Head: Normocephalic, atraumatic. No palpable hematoma or skull fracture. No delarosa sign. No raccoon eyes. EENT: Hearing is intact b/l. Conjunctiva clear. PERRLA. EOM intact. Moist mucous membranes.? Neck: in cervical collar Cardiac: Chest wall symmetric. RRR Lungs: Normal respiratory effort without accessory muscle use. CTA bilaterally Abdomen: Soft, non-tender, non-distended. No rebound tenderness or guarding. Positive BS x4. Back: No midline spinous or paraspinal tenderness. No step off deformity. Ext: +small abrasion noted to anterior right knee, no active bleeding, no involvement of deeper structures. No high-riding patella. Full ROM intact to right knee without pain on extension or flexion. No palpable deformity or crepitus. +small abrasion noted to right elbow over olecranon, no active bleeding. FROM intatc to R elbow without pain. NV intact distally. Neuro: AOx3. Normal speech. Strength 5/5 intact throughout. No saddle anesthesia. Sensation intact to light touch. Ambulating with steady gait. Psych: Appropriate mood and affect. Responds appropriately to questions. Course Course Course Narrative: CT head without bleed or skull fracture. CT cervical spine without fracture subluxation, showing chronic degenerative changes. X-ray of right elbow and right knee unremarkable. Discussed results with patient. Cervical collar removed. Advised Tylenol, Motrin, ice at home. Will send lidocaine patches to pharmacy for treatment for treatment. Patient has remained stable throughout ED visit today. Discussed worrisome signs and symptoms and when to return to the ED. All questions answered at this time. Patient is agreeable with disposition and stable for discharge. Medications Administered Discontinued Medications Generic Name Dose Route Start Last Admin Trade Name Mounika PRN Reason Stop Dose Admin Acetaminophen 975 mg 06/27/25 15:35 06/27/25 15:58 Acetaminophen 325 Mg Tablet PO 06/27/25 15:36 975 mg ONCE ONE Administration Lidocaine 1 patch 06/27/25 15:35 06/27/25 16:04 Lidocaine 4 % Patch Adh..Patch TRANSDERMA 06/27/25 15:36 1 patch ONCE ONE Administration Protocol Medical Decision Making Medical Decision Making MDM Narrative: 65 year old female with pmhx significant for anxiety, depression, PTSD, personality disorder, bipolar disorder, IBS, GERD, hypothyroidism presents to the ED today for evaluation s/p mechanical fall occurring yesterday. Vital signs stable. Differential diagnosis includes headache, concussion, closed head injury. Unlikely intracranial bleed, skull fracture, basilar skull fracture. Concern for cervical sprain/strain. Lower suspicion for cervical fracture or subluxation, cord compression/ injury. Concern for knee/elbow contusion, fracture. Lower suspicion for dislocation, neurovascular compromise, threat to limb, compartment syndrome. Plan for imaging, pain control, and re-evaluation. Differential Diagnosis Differential Diagnoses: The differential diagnosis associated with the presentation includes as above. Admission/Observation not indicated. Independent Interpretation I performed an independent interpretation of an: Plain X-Ray and CT Scan Interpretation: CT head without bleed. No skull fracture. CT cervical spine without fracture or subluxation XR right elbow without fracture XR right knee without fracture Radiology Impression Discussion of test interpretation with radiology: I have reviewed the radiologist's reading. Radiologist Impression: Date of Service: 06/27/25 Procedure(s): XR elbow RT min 3V Accession Number(s): [id number] cc: FRANCIS STODDARD MD; Polina Cueva~ EXAMINATION: XR ELBOW, RIGHT CLINICAL INFORMATION: fall R elbow pain COMPARISON: None available. TECHNIQUE: AP, lateral, and oblique views of the right elbow. FINDINGS: The bones and soft tissues are normal. No fracture or joint effusion. Alignment is anatomic. Joint spaces are maintained. XR/XR elbow RT min 3V IMPRESSION: Normal right elbow. Electronically signed by: Adelso Ponce MD 06/27/2025 03:35 PM EDT Date of Service: 06/27/25 Procedure(s): XR knee RT 4V Accession Number(s): [id number] cc: FRANCIS STODDARD MD; Polina Cueva~ EXAMINATION: XR KNEE, RIGHT CLINICAL INFORMATION: fal onto R knee, pain COMPARISON: None available. TECHNIQUE: Four views of the right knee. FINDINGS: No fracture, dislocation, or suspicious bone lesion. Normal bone mineralization. Normal alignment. Minimal medial compartment joint space narrowing. Mild spurring of the tibial spines. No significant joint effusion. Soft tissues appear normal. XR/XR knee RT 4V IMPRESSION: No acute bony abnormalities or evidence of joint effusion. Electronically signed by: Adelso Ponce MD 06/27/2025 03:38 PM EDT RP Date of Service: 06/27/25 Procedure(s): CT head/brain wo IV con Accession Number(s): [id number] cc: FRANCIS STODDARD MD; Polina Cueva~ Report Number: [id number]: Total DLP = 779.00 mGy-cm EXAMINATION: CT HEAD WITHOUT CONTRAST CLINICAL INFORMATION: posterior head strike COMPARISON: June 15, 2024 TECHNIQUE: Contiguous axial imaging was performed from the skull base to vertex without intravenous administration of contrast. This CT examination was performed using dose optimization techniques as appropriate, variously including the following: *Automated exposure control *Adjustment of mA and/or kV according to patient size (this includes techniques or standardized protocols for targeted exams where dose is matched to indication/reason for exam; i.e. extremities or head) *Use of iterative reconstruction technique DLP: 769.17 mGy-cm FINDINGS: No acute cortical disruption within the bony calvarium or the skull base. No acute intracranial hemorrhage, mass effect, midline shift, hydrocephalus or herniation. De León-white matter differentiation is normal. Posterior cranial fossa contents demonstrated no acute hemorrhage or gross mass effect. Sellar/suprasellar region demonstrated no gross masses. Bilateral multifocal patchy and confluent deep periventricular white matter hypodensities involving mostly the occipital poles. Calcified plaques in the basilar artery Prominence of the extra-axial CSF spaces and cerebral sulci involving mostly the temporoparietal poles. No air-fluid levels in the included paranasal sinuses. Tympanic cavities and mastoid air cells are aerated. No acute hemorrhage in the intraconal or the extraconal compartments of the orbits. CT/CT head/brain wo IV con IMPRESSION: No acute fracture, bony calvarium. No acute intracranial hemorrhage. Small vessel occlusive disease. Electronically signed by: Michoacano Sparrow MD 06/27/2025 03:26 PM EDT RP Date of Service: 06/27/25 Procedure(s): CT cervical spine wo IV con Accession Number(s): [id number] cc: FRANCIS STODDARD MD; Polina Cueva~ Report Number: [id number]: Total DLP = 270.00 mGy-cm EXAMINATION: CT CERVICAL SPINE WITHOUT CONTRAST CLINICAL INFORMATION: Status post fall. COMPARISON: May 16, 2024. TECHNIQUE: Do sagittal images through the cervical spine using 3 mm collimation with bone and soft tissue algorithm. Sagittal and coronal reformatted images acquired. DLP: 270.[address] examination was performed using dose optimization techniques as appropriate, variously including the following: *Automated exposure control *Adjustment of mA and/or kV according to patient size (this includes techniques or standardized protocols for targeted exams where dose is matched to indication/reason for exam; i.e. extremities or head) *Use of iterative reconstruction technique FINDINGS: There are craniocervical junction is intact with normal alignment between the occipital condyles and the lateral masses of C1. Degenerative changes in the periodontal C1 region. Multilevel syndesmophyte formation and marginal osteophyte formation and endplate sclerosis and decreased intervertebral disc height C4 C7. Grade 1 anterolisthesis C2-3. Bilateral facet joint hypertrophy pronounced at C2-3 and C3-4 levels. C1 is intact. C2 is intact. C3 is intact. Bilateral facet joint hypertrophy. C4 is intact. Bilateral facet joint hypertrophy. C5 is intact. Bilateral facet joint hypertrophy. C6 is intact. Left facet joint hypertrophy. C3 7 is intact. No prevertebral compartment hematoma. Status post total thyroidectomy. Tympanic cavities and mastoid cells are aerated. CT/CT cervical spine wo IV con IMPRESSION: Multilevel cervical spondylosis without acute fracture or trauma-related listhesis. Overall worsening since prior examination. Fleischner guidelines were followed. Electronically signed by: Michoacano Sparrow MD 06/27/2025 03:34 PM EDT External Record Review External record reviewed: Inpatient record Prescription Management I considered prescription management with: Pain Medication Social Determinants Patient?s care significantly limited by Social Determinants of Health including: Other Social Determinant of Health Critical Care Time Critical Care Time Critical Care Time: No Discharge Plan Discharge Clinical Impression: Closed head injury, Concussion, Contusion of right knee, Contusion of right elbow, Fall Patient Disposition: Home, Self-Care Instructions: Concussion (ED), Head Injury (ED), Fall Prevention (ED) Additional Instructions: You were evaluated in the Emergency Department today following a fall. Your evaluation did not show signs of medical conditions requiring emergent intervention at this time. You have a concussion. See home care instructions regarding concussion protocol. Treatment for this is brain rest. Please limit screen time (i.e phone, tv, etc.) Make sure you are staying hydrated. Lay down to relax in a dark quiet room. Avoid sports until cleared by your primary doctor. Use ice several times per day for 20 minutes at a time for the next 48 hours and then change to heat. I recommend you take 600mg ibuprofen every 6 hours or tylenol 650mg every 6 hours as needed for pain. If needed, you can alternate these medications so that you take one medication every 3 hours. For example, at noon take ibuprofen, then at 3pm take tylenol, then at 6pm take ibuprofen. Lidoderm patches are numbing patches. Apply to painful areas. Please schedule an appointment for follow-up with your primary care provider this week for further evaluation of your symptoms. Return to the Emergency Department if you experience worsening back pain, difficulty walking, fevers, numbness, tingling, incontinence, or any other concerning symptoms. In the case of an emergency call 911. Prescriptions: New lidocaine [Lidoderm] 5 % adhesive patch,medicated 1 patch topical DAILY Qty: 15 0RF Rx Instructions: leave on most painful area for up to 12 hrs No Action trazodone 50 mg Tablet 50 mg PO BEDTIME PRN (Reason: Insomnia) 30 Days Qty: 30 0RF ziprasidone HCl 80 mg capsule 80 mg PO BIDWM 30 Days Qty: 60 0RF simvastatin 40 mg tablet 40 mg PO BEDTIME 30 Days Qty: 30 0RF ziprasidone HCl 20 mg Capsule 20 mg PO BIDWM 30 Days Qty: 60 0RF Rx Instructions: give with food (meal/snack) chlorpromazine 25 mg Tablet 50 mg PO DAILY 30 Days Qty: 60 0RF chlorpromazine 25 mg Tablet 75 mg PO BEDTIME 30 Days Qty: 90 0RF levothyroxine 125 mcg Tablet 125 mcg PO DAILY@0600 30 Days Qty: 30 0RF trihexyphenidyl 2 mg tablet 2 mg PO QAM 30 Days Qty: 30 0RF lamotrigine 25 mg tablet 50 mg PO BID famotidine 20 mg tablet 20 mg PO BEDTIME omeprazole 20 mg capsule,delayed release(DR/EC) 20 mg PO DAILY lamotrigine 200 mg tablet 200 mg PO BEDTIME clonazepam 0.25 mg tablet,disintegrating 0.25 mg PO TID PRN (Reason: anxiety) ascorbic acid (vitamin C) [Vitamin C] 1,000 mg Tablet 1,000 mg PO DAILY calcium carbonate 600 mg calcium (1,500 mg) Tablet 600 mg PO DAILY cholecalciferol (vitamin D3) [Vitamin D3] 25 mcg (1,000 unit) Capsule 25 mcg PO DAILY coenzyme Q10 [CoQ-10] 100 mg Capsule 100 mg PO DAILY Centrum Silver Women 8 mg iron-400 mcg-50 mcg Tablet 1 tab PO DAILY Referrals: Francis Stoddard MD [Primary Care Provider, Internal Medicine] Print Language: Czech
--- OUTSIDE RECORDS SUMMARY | 2025-06-27 13:53 | XMS_ITS | Data Portability ---
Author Organization [place] - [facility] Address [address] [place] [address] Care Team Providers Care Sociology Instructor Name Role Phone JENNIFER BETTS Primary Care [...] were answered prior to DH team departure. [email or web address] Not available 08/07/2022 18:48:34 Plan of Treatment Reminders Order Date Submit Date Provider Last Modified By Organization Details Last Modified Time Details Appointments None recorded. Lab unlisted lab - covid-19 (novel coronaviru s) PCR 2021 022 IRENE [facility] (Centralized Electronic Ordering - All Locations), Patient Can Go To The Location Of Their Choice, [id number] 16:05:23 Referral None recorded. Procedures None recorded. Surgeries None recorded. Imaging None recorded. Medication Orders None recorded. Patient TargetsNo targets recorded. Patient Instructions Encounter Date Encounter Id Patient Instructions Last Modified By Organization Details Last Modified Time 08/07/2022 [id number] sore throat: car e instructions [email or web address] [id number] Not available 08/07/2022 17:27:52 Please seek [...] in your condition between 8am-10pm, [facility] at [phone] to help navigate your care. [email or web address] [id number] Not available 08/07/2022 17:07:41 Reason for [...] ng. Resul t repor audra to the ON LICENSE OF [facility]. To preve nt error s in diagn [...] perfo rmed by real time PCR utili [id number] SARS- CoV-2 test. Not Available [facility] (Centralized Electronic Ordering - All Locations) Patient Can Go To The Location Of Their Choice, [id number] 08/08/2022 16:05:23 08/07/20 22 08/08/2022 COVID -19 (NOVE L CORON AVIRU S) PCR covid-19 PCR specimen source NASAL Not Available [facility] (Centralized Electronic Ordering - All Locations) Patient Can Go To The Location Of Their Choice, [id number] 08/08/2022 16:05:23 Result Notes None recorded. Procedures Surgical History Date Name Laterality Status Provider Name and Address Organization Details Recorded Time thyroidectomy completed Sara Flores NP [address] [place], [address], [place] [facility] 08/07/2022 17:04:06 Imaging Results None recorded. Procedure Notes None recorded. Medical Equipment None Reported. Allergies Allergen ID Allergen Name Allergen Category Reaction Reaction Severity Criticality Documentation Date Start Date Code Code System Note Provider Name and Address Organization Details Recorded Time 418211 Abilify medicatio n Not available Not available Not available 08/07/2022 62382 3 RxNorm Sara Flores NP [address] [place], [address], [place] [facility] 16:57:18 921127 Bactrim medicatio n Not available Not available Not available 08/07/2022 67324 9 RxNorm Sara Flores NP [address], [place], [address], [place] [facility] 2 16:57:26 546578 aspirin medicatio n Not available Not available Not available 08/07/2022 1191 RxNorm Sara Flores , MAT GAUGER [address], [place], [address], [place] [facility] 16:57:50 532769 bupropion Not available Not available Not available Not available 08/07/2022 07901 RxNorm Sara Flores , MAT GAUGER [address], [place], [address], [place] [facility] 16:58:24 341113 Cogentin medicatio n Not available Not available Not available 08/07/2022 62211 2 RxNorm Sara Flores , MAT GAUGER [address], [place], [address], [place] [facility] 16:58:34 697411 Inderal medicatio n Not available Not available Not available 08/07/2022 93801 0 RxNorm Sara Flores , MAT GAUGER [address], [place], [address], [place] [facility] 2 16:58:42 209718 Motrin medicatio n Not available Not available Not available 08/07/2022 42159 8 RxNorm Sara Flores , MAT GAUGER [address], [place], [address], [place] [facility] 16:58:50 133295 Product containin g penicilli n (product) medicatio n Not available Not available Not available 08/07/2022 65723 8001 SNOMED Sara Flores , MAT GAUGER [address], [place], [address], [place] [facility] 16:59:03 511172 risperido ne medicatio n Not available Not available Not available 08/07/2022 74632 RxNorm Sraa Flores , MAT GAUGER [address], [place], [address], [place] [facility] 16:59:16 843963 Zyprexa medicatio n Not available Not available Not available 08/07/2022 68492 3 RxNorm Sara Flores , MAT GAUGER [address], [place], [place], [address], [place] [facility] 16:59:27 716308 Trilafon medicatio n Not available Not available Not available 08/07/2022 23107 0 RxNorm Sara Flores , MAT GAUGER [address], [place], [address], [place] [facility] 16:59:46 200140 erythromy juan medicatio n Not available Not available Not available 08/07/2022 4053 RxNorm Sara Flores , MAT GAUGER [address], [place], [place], [address], [place] [facility] [...] AND REMOVE EVERY 7TH DAY WITH NAIL [employer] REMOVER 08/07 completed Not Available Not Available [...] Smoker May Mark, BRIANA [address], [place], [address], [place] [facility] 08/07/2022 17:05:03 Is Blood Transfusion Acceptable In An Emergency? Yes Information not available 08/07/2022 What Is Your Code Status? Full Code [email or web address] Information not available 08/07/2022 When Did You Quit Smoking? 16+yearssince lastcigarette [email or web address] Information not available 08/07/2022 Within The Past 12 Months, Has It Happened That The Food You Bought Just Didn't Last And You Didn't Have Money To Get More. No [email or web address] Information not available 08/07/2022 Within The Past 12 Months, Have You Worried That Your Food Would Run Out Before You Got Money To Buy More. No [email or web address] Information not available 08/07/2022 Fall Risk: Do You Feel Unsteady When Standing Or Walking? No [email or web address] Information not available 08/07/2022 We Know That How And When People Interact With Friends And Family Can Be Very Different From Person To Person. How Often Do You Have The Opportunity To See Or Talk To People That You Care About And Feel Close To? (Ex: Talking To Friends On The Phone Or Visiting Friends Or Family Or Going To Jehov[employer] Or Club Meetings) Choose Not To Answer This Question [email or web address] Information not available 08/07/2022 Excessive Alcohol Or Drug Use No [email or web address] Information not available 08/07/2022 Does This Patient Have A PCP? Yes [email or web address] Information not available 08/07/2022 Has The Patient Seen Their PCP In The Past 6 Months? Yes [email or web address] Information not available 08/07/2022 Is This Patient In Hospice? No [email or web address] Information not available 08/07/2022 We Know From Many Of Our Patients That Covering All Of Their Costs Can Be Difficult At Times. This Can Cause Stress And Impact Health. In The Past Year, Have You Been Unable To Get Any Of The Following When It Was Really Needed? No [email or web address] Information not available 08/07/2022 What Is Your Housing Situation Today? I Have Housing [email or web address] Information not available 08/07/2022 Do You Have An Out Of Hospital DNR? No [email or web address] Information not available 08/07/2022 At What Age Did You Start Smoking Tobacco? 11 [email or web address] Information not available 08/07/2022 Sex: Unknown Functional Status Question Answer Note LastModified by Organizat ion Details LastModified Time Do you use any illicit or recreational drugs? No [email or web address] Information not available 08/07/2022 What is your level of alcohol consumption? None [email or web address] Information not available 08/07/2022 Mental Status None recorded. Family History Nothing Reported. Medical History Condition Response Diabetes N Coronary Artery Disease N CHF N Parkinson's Disease N Cancer Y Stroke N Dementia N Asthma N Hypothyroidism Y Depression N COPD N High Cholesterol Y Rheumatoid Arthritis N Pulmonary Embolism N Hypertension N A-fib N Osteoporosis N Kidney Disease N Gynecological HistoryNo gynecological history recorded. Obstetrics History GPAL:G 0 P 0 0 0 0 Past Encounters Encounter ID Performer Location Encounter Start Date Encounter Closed Date Diagnosis/Indication Diagnosis SNOMED-CT Code Diagnosis ICD10 Code Diagnosis Note [id number] May BRIANA Flores [facility] [address] [facility], [place] [address] 08/07/2022 16:53:06 08/08/2022 15:38:35 Exposure to communicable disease 447293829 Z20.822 Loss of taste 08297987 R 43.2 Pain in throat 543442852 R07.0 Health Concerns Section Related Observation LastModified by Organization Detai ls LastModified Time None Recorded Concern Status LastModified by Organization Details LastModified Time None Recorded Advance Directives Directive None Recorded Payers Insurance Date Sequence Insurance Name Policy Number Policy Gutierrez Covered Member ID Gutierrez Member ID Guarantor Name 08/07/2022 1 *SELF PAY* Maryse Shaikh [id number] Maryse Shaikh 08/08/2022 1 MEDICAID-OR: [facility] Maryse Shaikh [id number] Maryse Shaikh OBGyn Episode No OBEpisode recorded.
--- OUTSIDE RECORDS SUMMARY | 2025-06-27 13:53 | XMS_ITS | Encounter Summary ---
Author Organization [employer] Address [address] [place] [address] Care Team Providers Care Rolled Materials Worker Name Role Phone Unavailable Primary Care Provider Unavailabl e Reason for Visit * Reason Onset Date Comments Extraction aftercare 05/11/2025 Encounter Details Date Type Department Care Team (Late st Contact Info) Description 05/11/2025 Telephone [facility] [address] [place] [address] Hardeep Gibson, DMD [address] [place] [address] Extraction aftercare Social History Tobacco Use Types [...] call. Sent to both clinical support and lead front end developer documented in this encounter Plan of Treatment Not on file documented as of this encounter Visit Diagnoses Not on filedocumented in this encounter
--- OUTSIDE RECORDS SUMMARY | 2025-06-27 13:53 | XMS_ITS | Clinical Summary ---
Author Organization [facility] Address [address] [place] [address] Care Team Providers Care Address Change Clerk Name Role Phone Lino Parker MD Primary Care Provider [phone] Allergies Active Allergy Reactions Criticality Noted Date [...] Advance Directives For more information, please contact: [phone] Latest Code Status on File Code Status Date Activated Date Inactivated Comments Full Code 04/15/2024 2:24 PM 04/17/2024 1:26 AM This code status was ascertained in the following way: discussion with patient . Care Teams Address Change Clerk Relationship Specialty Start Date End Date Lino Parker MD [address] [place] [address] [place] [address] PCP - General Internal Medicine 04/15/24
--- OUTSIDE RECORDS SUMMARY | 2025-06-27 13:54 | XMS_ITS | Patient Health Record ---
Author Organization [facility] Address [address] [place] [address] Care Team Providers Care Red Hat Linux Administrator Name Role Phone Keith (RETIRED) Lino NOBLE Primary Care Provider Unavailable Abelardo Sal Unavailable [phone] Allergies Allergen (clinical drug ingredient) Drug/Non Drug Allergy documented on EMR Reaction Allergy Type Onset Date Status Penicillin Unknown Drug Allergy Active Trigofen Unknown Drug Allergy Active olanzapine Zyprexa Unknown Drug Allergy Active Wellbutrin Unknown Drug Allergy Active Motrin Unknown Drug Allergy Active propranolol Inderal LA Unknown Drug Allergy Acti ve erythromycin Erythromycin Unknown Drug Allergy A ctive Cogentin Unknown Drug Allergy Active sulfamethoxazole / trimethoprim Bactrim Unknown Drug Allergy Active aspirin Aspirin Unknown Drug Allergy Active aripiprazole Abilify Unknown Drug Allergy Acti ve eggs,milk,cheese (uncoded) Unknown Allergy Active Reason For Referral No Information Medications Medication SIG (Take, Route, Frequency, Duration) Notes [...] with food Orally Twice a day Active Immunizations Vaccine Route Administration Date Status Comme nts Influenza Unknown 08/01/2021 Administered Problems Problem Type SNOMED Code ICD Code Onset Dates Problem Status W/U Status Risk Notes Problem 385993583 Encounter for screening for malignant neoplasm of colon (Z12.11) Active confirmed Problem 577443248 History of adenomatous polyp of colon (Z86.010) Active confirmed Problem 428396752 Irritable bowel syndrome with diarrhea (K58.0) Active confirmed Problem Screening for malignant neoplasm of rectum (372770070) Encounter for screening for malignant neoplasm of rectum (Z12.12) Active confirmed Problem 75581019 Preprocedural examination (Z01.818) Active confirmed Problem Esophageal reflux finding (060609348) Gastroesophageal reflux (K21.9) Active confirmed Problem Diverticulosis of colon (166747259) Diverticulosis of colon (K57.30) Active confirmed Problem 314966822 Gastroesophageal reflux disease, unspecified whether esophagitis present (K21.9) Active confirmed Plan Of Treatment Pending Test Test Name Order Date CLOSTRIDIUM [...] Start Date Coverage End Date [employer] [facility] [address] [place] [address] [id number] KAY CASIANO Self - patient is the insured Medical (General) History Medical History History ICD Code Screening colonoscopy 12-14- 010--1.2cm sigmoid tubular adenoma, sigmoid diverticulosis, internal hemorrhoids PTSD, Disassociative identit y disorder, Depression, Bipolar disease--Dr. Adelina Shoemaker Hyperlipidemia Denies [place],DM,CVA,Lung disease,renal dise ase Hypothyroid in relation to thyroidectomy for thyroid cancer as below IBS--neg. celiac disease labs in 05/2015 Negative colonoscopy in 10/2016 Surgical History Surgery Date(Month/Year) Total thyroidectomy--cancer
--- OUTSIDE RECORDS SUMMARY | 2025-06-27 13:54 | XMS_ITS | Clinical Summary ---
Author Organization [facility] Address [address] [place] [address] Phone Care Team Providers Care Street Cleaner Name Role Phone Lino Parker MD Primary Care Provider [phone] Allergies Active Allergy Reactions Criticality Noted Date [...] of both feet 11/15/2024 Dissociative identity disorder ([facility] V24, [facility] V28) 07/20/2018 Hyperlipidemia 07/20/2018 Hypothyroidism 07/20/2018 Mood disorder ([facility] V24) 07/20/2018 PTSD (post-traumatic stress disorder) 07/20/2018 Medical History Medical History Date Comments Other bipolar disorder ([facility] V24, [facility] V28) DX:Other bipolar disorder ([facility]) Post-traumatic stress disord er, unspecified DX:Post-traumatic stress dis order, unspecified 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[facility] V24, [facility] V28) DX:Dissociative identity dis order ([facility]) Mood disorder ([facility] V24) DX:M ood disorder ([facility]) No diagnosis on Valentine II DX:No di agnosis on Valentine II Social History Tobacco Use Types Packs/Day [...] Panel) 11/09/2022 Colorectal Cancer Screening: Colonoscopy 11/09/2022 Hepatitis C Screening 11/09/2022 Medicare Annual Wellness Visit 11/09/2022 Osteoporosis Screening (Bone Density Screening) 11/09/2022 Social Influencers of Health Screening 11/09/2022 Falls Risk Assessment 2023 COVID-19 Vaccine ( - 2023- season) 2024 01/27/2024, 10/16/2022, 11/29/2021, Additional history exists Depression Screening 12/01/2024 Influenza Vaccine (#1) 2025 , 09/30/2023, 12/27/2022, [...] Insurance MEDICARE MEDICAID - [place] Care Teams Street Cleaner Relationship Specialty Start Date End Date Lino Parker MD [address] [place] [address] [place] [address] PCP - General Internal Medicine 07/13/18
--- OUTSIDE RECORDS SUMMARY | 2025-06-27 13:54 | XMS_ITS | Clinical Summary ---
Author Organization [facility] Address [address] [address] Phone Care Team Providers Care Fresh Foods Clerk Name Role Phone Lino Parker MD Primary Care Provider Allergies Active Allergy Reactions Criticality Noted Date Comments Aripiprazole 10/24/2023 Aspirin 10/24/2023 Sulfamethoxazole-Trimethoprim 2022 Benztropine 10/24/2023 Ibuprofen 10/24/2023 Penicillins 10/24/2023 Risperidone 10/24/2023 Perphenazine 10/24/2023 Bupropion Hcl 10/24/2023 Olanzapine 10/24/2023 Medications clonazePAM (KLONOPIN) 0.5 MG disintegrating tablet Take 0.5 mg by mouth 3 (three) times a day as needed for anxiety. Active haloperidoL (HALDOL) 2 MG tablet Take 2 mg by mouth nightly at bedtime. Active levothyroxine (SYNTHROID, LEVOTHROID) 125 MCG tablet Take 125 mcg by mouth every morning. Active lamoTRIgine (LAMICTAL) 25 MG IMMEDIATE release tablet Take 2 tablets by mouth daily. Active lamoTRIgine (LAMICTAL) 100 MG IMMEDIATE release tablet Take 2 tablets by mouth nightly at bedtime. Active ziprasidone (GEODON) 80 MG capsule TAKE ONE CAPSULE BY MOUTH TWICE A DAY WITH FOOD 3 Active ziprasidone (GEODON) 20 MG capsule Take 1 capsule by mouth 2 (two) times a day. 3 Active omeprazole (PRILOSEC) 20 MG capsule Take 1 capsule by mouth every morning. 3 Active simvastatin (ZOCOR) 40 MG tablet TAKE ONE TABLET BY MOUTH AT BEDTIME DIRECTED 3 Active traZODone (DESYREL) 50 MG tablet TAKE ONE TABLET BY MOUTH AT BEDTIME MAY REPEAT ONE TIME NEEDED FOR INSOMNIA 3 Active trihexyphenidyL (ARTANE) 2 MG tablet Take 2 mg by mouth every morning. 3 Active Active Problems Problem Noted Date Diagnosed Date Suicidal ideation 10/24/2023 Social History Tobacco Use Types Packs/Day Years Used Date Smoking Tobacco: Never Smokeless Tobacco: Never Tobacco Cessation:Counseling Given: Not Answered Alcohol Use Standard Drinks/Week Comments Not Currently 0 (1 standard drink = 0.6 oz pur e alcohol) Education Answer Date Recorded Are you interested in more education? Not on joyce e 10/24/2023 Are you concerned about learning? Not on file 10/24/2023 No 10/24/2023 No 10/24/2023 Digital Access Answer Date Recorded No 10/24/2023 No 10/24/2023 Reliable internet access at home? Not on file 10/24/2023 Device with a working camera? Not on file Intimate Partner Violence Answer Date R ecorded Are you denied basic needs s uch as food, clothing, or medical care? No 10/24/2023 In the past 12 months have y ou been in a relationship with a person who hurts, threatens, or tries to control you? No 10/24/2023 Are you denied basic needs s uch as food, clothing, or medical care? No 10/24/2023 In the past 12 months have y ou been in a relationship with a person who hurts, threatens, or tries to control you? No 10/24/2023 Comments No Sex and Gender Information Value Date Recorded Sex Assigned at Female 10/24/2023 11:54 AM EST Legal Sex Female 11:36 AM EST Gender Identity Female 10/24/2023 11:54 AM EST Sexual Orientation Not on file Last Filed Vital Signs Vital Sign Reading Time Taken Comments Blood Pressure 111/70 10/24/2023 7:34 PM EST Pulse 68 10/24/2023 7:34 PM EST Temperature 36.8 C (98.2 F) 10/24/2023 7:34 PM EST Respiratory Rate 16 10/24/2023 7:34 PM EST Oxygen Saturation 98% 10/24/2023 7:34 PM EST Inhaled Oxygen Concentration - - Weight 57.2 kg (126 lb) 10/24/2023 11:52 AM EST Height 160 cm (5' 3 ) 10/24/2023 11:52 AM EST Body Mass Index 22.32 10/24/2023 11:52 AM EST Plan of Treatment Health Maintenance Due Date Last Done Comments Adult Td,Tdap Booster 1958 LIPID PANEL 1958 TSH LEVEL 1958 DEPRESSION SCREENING 1970 HEPATITIS C SCREENING 1976 SMOKING STATUS SCREENING (On ce After 26 Yrs) 1984 MAMMOGRAM 1998 COLOGUARD 2003 COLONOSCOPY 2003 COLORECTAL CANCER SCREENING 2003 FIT TEST 2003 FOBT 2003 SIGMOIDOSCOPY 2003 VIRTUAL COLONOSCOPY 2003 PNEUMOCOCCAL VACCINES (50+ y ears) (1 of 1 - PCV) 2008 ZOSTER VACCINES (1 of 2) 2008 OSTEOPOROSIS SCREENING INITI AL (ONE-TIME) 2023 COVID-19 VACCINE ( - 2023-2 5 season) 2024 RSV VACCINE (1 - 1-dose 75+ series) 2033 HEPATITIS A VACCINES Aged Out No long er eligible based on patient's age to complete this topic HIB VACCINES Aged Out No longer eligi ble based on patient's age to complete this topic MENINGOCOCCAL VACCINES (ACWY) Aged Out No longer eligible based on patient's age to complete this topic MENINGOCOCCAL VACCINES (B) Aged Out N o longer eligible based on patient's age to complete this topic Medical Devices Not on file Insurance MEDICARE PART A & [place] [facility] [place] [facility] & [place] Care Teams Fresh Foods Clerk Relationship Specialty Start Date End Date Lino Parker MD [address] [place] [address] [place] [address] PCP - General Internal Medicine 10/24/23 Additional Source Comments The information contained in this document represents components of the legal health record. It is not the complete legal health record.[facility]
[2025-06-27 14:48] VITALS: BP 127/72; PULSE 73; RESP 14; TEMP 36.6; O2SAT 100
[2025-06-27] MEDS: Lidocaine 4 % Patch ADH..PATCH 1 PATCH TRANSDERMA (16:04)
[2025-06-27 16:27] VITALS: BP 127/72; PULSE 73; RESP 14; TEMP 36.6; O2SAT 100
[2025-06-27 16:29] VITALS: BP 139/86; PULSE 91; RESP 16; TEMP 36.6; O2SAT 100
--- OUTSIDE RECORDS SUMMARY | 2025-07-01 20:00 | XMS_ITS | Clinical Summary ---
Author Organization Unknown Care Team Providers Care Pick Up Driver Name Role Phone RICHI NOBLE, ABHINAV Unavailable Unavailable ROM PT, SANDRA Unavailable Unavailable LUIS HERMAN, HEIDI Unavailable Unavailable [facility] EDUCATOR, JANA Unavailable Unavailable Payers Payer Name Policy Type Policy Number Effective Date Expira tion Date [place] - [place] [id number] ON DEMAND MEDICARE - [facility] BILL[facility] - ABN [id number] Problems Condition Name Condition Details Condition Category Status Onset Date Resolution Date Last Treatment Date Treating Clinician Comments BIPOLAR DISORDER, UNSPECIFIED Active 2022-12 00:00: 00 Allergies, Adverse Reactions, Alerts Allergy Name Allergy Type Status Severity Reaction(s) Onset Date Inactive Date Treating Clinician Comments BACTRIM Propensity to adverse reactions Active 2022-12 14:23: 02 COGENTIN Propensity to adverse reactions Active 2022-12 14:23: 57 ERYTHROMYCIN BASE Propensity to adverse reactions Active 2022-12 14:24: 08 RISPERIDONE Propensity to adverse reactions Active 2022-12 16:37: 08 PENICILLIN V K Propensity to adverse reactions Active 2022-12 14:24: 59 TRILAFON Propensity to adverse reactions Active 2022-12 14:25: 28 MOTRIN IB Propensity to adverse reactions Active 2022-12 14:24: 47 ASCRIPTIN (ASPIRIN BUFF) Propensity to adverse reactions Active 2022-12 14:23: 13 ABILIFY MAINTENA Propensity to adverse reactions Active 2022-12 14:22: 47 Medications Ordered Medication Name Filled Medication Name Start Date Stop Date Current Medication? Ordering Clinician Indication Dosage Frequency Signature (SIG) Comments Components omeprazole 20 mg capsule,del ayed release 2022-12 00:00: 00 12-07 23:59 :00 No [id number] 1 capsule DAILY 1 capsule DAILY (route: oral) Med Classific ation: Gastroint estinal Therapy Agents chlorpromaz ine 25 mg tablet 2022-12 2- 00:00: 00 12-07 23:59 :00 No [id number] 1 tablet EVERY AM 1 tablet EVERY AM (route: oral) Med Classific ation: Central Nervous System Agents clonazepam 0.25 mg disintegrat ing tablet 2022-12 00:00: 00 12-07 23:59 :00 No [id number] 1 tablet 3 TIMES DAILY 1 tablet 3 TIMES DAILY (route: oral) Med Classific ation: Central Nervous System Agents haloperidol 2 mg tablet 2022-12 00:00: 00 11-11 23:59 :00 No [id number] Per instruc tions AT BEDTIME Per instructio ns AT BEDTIME (route: oral) Med Classific ation: Central Nervous System Agents trazodone 50 mg tablet 2022-12 00:00: 00 12-08 23:59 :00 No [id number] 1 tablet AT BEDTIME MAY REPEAT ONE TIME NEEDED 1 tablet AT BEDTIME MAY REPEAT ONE TIME NEEDED (route: oral) Med Classific ation: Central Nervous System Agents ziprasidone 20 mg capsule 2022-12 00:00: 00 12-07 23:59 :00 No [id number] 1 capsule TWICE A DAY 1 capsule TWICE A DAY (route: oral) Med Classific ation: Central Nervous System Agents lamotrigine 100 mg tablet 2022-12 00:00: 00 11-11 23:59 :00 No [id number] Per instruc tions AT BEDTIME Per instructio ns AT BEDTIME (route: oral) Med Classific ation: Central Nervous System Agents lamotrigine 25 mg tablet 2022-12 00:00: 00 12-08 23:59 :00 No [id number] 12 tablet EVERY MORNING & 1 AT 7 PM 12 tablet EVERY MORNING & 1 AT 7 PM (route: oral) Med Classific ation: Central Nervous System Agents levothyroxi ne 125 mcg tablet 2022-12 00:00: 00 12-07 23:59 :00 No [id number] 1 tablet EVERY DAY 1 tablet EVERY DAY (route: oral) Med Classific ation: Endocrine simvastatin 40 mg tablet 2022-12 00:00: 00 12-08 23:59 :00 No [id number] 1 tablet AT BEDTIME DIRECTED 1 tablet AT BEDTIME DIRECTED (route: oral) Med Classific ation: Cardiovas cular Therapy Agents trihexyphen idyl 2 mg tablet 2022-12 00:00: 00 12-07 23:59 :00 No [id number] 1 tablet EVERY 1 tablet EVERY (route: oral) Med Classific ation: Central Nervous System Agents ziprasidone 80 mg capsule 2022-12 00:00: 00 12-07 23:59 :00 No [id number] 1 capsule TWICE A DAY 1 capsule TWICE A DAY (route: oral) Med Classific ation: Central Nervous System Agents calcium carbonate 250 mg-vitamin D3 3.125 mcg (125 unit) tablet 12-08 00:00: 00 01-31 23:59 :00 No [id number] 2 tablet NOON 2 tablet NOON (route: oral) Med Classific ation: Electroly te Balance-N utritiona l Products Centrum Silver Women 8 mg iron-400 mcg-50 mcg tablet 12-08 00:00: 00 Yes [id number] 1 tablet NOON 1 tablet NOON (route: oral) Med Classific ation: Electroly te Balance-N utritiona l Products chlorpromaz ine 25 mg tablet 12-08 00:00: 00 02-17 23:59 :00 No [id number] 2-3 tablet 2 TIMES DAILY 2-3 tablet 2 TIMES DAILY (route: oral) Med Classific ation: Central Nervous System Agents clonazepam 0.5 mg disintegrat ing tablet 12-08 00:00: 00 12-08 23:59 :00 No [id number] 0.5 tablet 2 TIMES DAILY 0.5 tablet 2 TIMES DAILY (route: oral) Med Classific ation: Central Nervous System Agents CoQ-10 100 mg capsule 12-08 00:00: 00 Yes [id number] 1 capsule NOON 1 capsule NOON (route: oral) Med Classific ation: Alternati ve Therapy lamotrigine 25 mg tablet 12-08 00:00: 00 23:59 :00 No [id number] 2 tablet BEDTIME 2 tablet BEDTIME (route: oral) Med Classific ation: Central Nervous System Agents levothyroxi ne 125 mcg tablet 12-08 00:00: 00 02-17 23:59 :00 No [id number] 1 tablet EVERY AM 1 tablet EVERY AM (route: oral) Med Classific ation: Endocrine omeprazole 20 mg capsule,del ayed release 12-08 00:00: 00 02-27 23:59 :00 No [id number] 1 capsule NOON 1 capsule NOON (route: oral) Med Classific ation: Gastroint estinal Therapy Agents simvastatin 40 mg tablet 12-08 00:00: 00 Yes [id number] 1 tablet BEDTIME 1 tablet BEDTIME (route: oral) Med Classific ation: Cardiovas cular Therapy Agents trazodone 50 mg tablet 12-08 00:00: 00 Yes [id number] 1 tablet BEDTIME 1 tablet BEDTIME (route: oral) Med Classific ation: Central Nervous System Agents trihexyphen idyl 2 mg tablet 12-08 00:00: 00 02-17 23:59 :00 No [id number] 1 tablet 2 TIMES DAILY 1 tablet 2 TIMES DAILY (route: oral) Med Classific ation: Central Nervous System Agents ziprasidone 20 mg capsule 12-08 00:00: 00 12-08 23:59 :00 No [id number] 1 capsule 2 TIMES DAILY 1 capsule 2 TIMES DAILY (route: oral) Med Classific ation: Central Nervous System Agents ziprasidone 80 mg capsule 12-08 00:00: 00 02-17 23:59 :00 No [id number] 1 capsule 2 TIMES DAILY 1 capsule 2 TIMES DAILY (route: oral) Med Classific ation: Central Nervous System Agents clonazepam 0.5 mg disintegrat ing tablet 2024-0 1-08 00:00: 00 23:59 :00 No [id number] 0.5 tablet 3 TIMES DAILY 0.5 tablet 3 TIMES DAILY (route: oral) Med Classific ation: Central Nervous System Agents lamotrigine 100 mg tablet 1-08 00:00: 00 02-17 23:59 :00 No [id number] 2 tablet BEDTIME 2 tablet BEDTIME (route: oral) Med Classific ation: Central Nervous System Agents ziprasidone 20 mg capsule -08 00:00: 00 02-17 23:59 :00 No [id number] 1 capsule 2 TIMES DAILY 1 capsule 2 TIMES DAILY (route: oral) Med Classific ation: Central Nervous System Agents clonazepam 0.25 mg disintegrat ing tablet 01-14 00:00: 00 Yes [id number] 1 tablet 3 TIMES DAILY 1 tablet 3 TIMES DAILY (route: oral) Med Classific ation: Central Nervous System Agents Vitamin C 1,000 mg tablet 01-14 00:00: 00 Yes [id number] 1 tablet NOON 1 tablet NOON (route: oral) Med Classific ation: Electroly te Balance-N utritiona l Products Vitamin D3 25 mcg (1,000 unit) capsule 01-14 00:00: 00 Yes [id number] 1 capsule NOON 1 capsule NOON (route: oral) Med Classific ation: Electroly te Balance-N utritiona l Products lamotrigine 25 mg tablet 01-29 00:00: 00 Yes [id number] 2 tablet 2 TIMES DAILY 2 tablet 2 TIMES DAILY (route: oral) Med Classific ation: Central Nervous System Agents calcium carbonate 600 mg calcium (1,500 mg) tablet 3- 00:00: 00 Yes [id number] 1 tablet NOON 1 tablet NOON (route: oral) Med Classific ation: Electroly te Balance-N utritiona l Products chlorpromaz ine 25 mg tablet 02-18 00:00: 00 Yes [id number] 2 tablet EVERY AM 2 tablet EVERY AM (route: oral) Med Classific ation: Central Nervous System Agents chlorpromaz ine 25 mg tablet 02-18 00:00: 00 Yes [id number] 3 tablet BEDTIME 3 tablet BEDTIME (route: oral) Med Classific ation: Central Nervous System Agents lamotrigine 100 mg tablet 02-18 00:00: 00 Yes [id number] 2 tablet BEDTIME 2 tablet BEDTIME (route: oral) Med Classific ation: Central Nervous System Agents levothyroxi ne 125 mcg tablet 02-18 00:00: 00 Yes [id number] 1 tablet EVERY AM 1 tablet EVERY AM (route: oral) Med Classific ation: Endocrine trihexyphen idyl 2 mg tablet 02-18 00:00: 00 Yes [id number] 1 tablet EVERY AM 1 tablet EVERY AM (route: oral) Med Classific ation: Central Nervous System Agents ziprasidone 20 mg capsule 02-18 00:00: 00 Yes [id number] 1 capsule 2 TIMES DAILY 1 capsule 2 TIMES DAILY (route: oral) Med Classific ation: Central Nervous System Agents ziprasidone 80 mg capsule 02-18 00:00: 00 Yes [id number] 1 capsule 2 TIMES DAILY 1 capsule 2 TIMES DAILY (route: oral) Med Classific ation: Central Nervous System Agents Cipro 500 mg tablet 04-18 00:00: 00 04-27 23:59 :00 No [id number] 1 tablet 2 TIMES DAILY 1 tablet 2 TIMES DAILY (route: oral) Med Classific ation: Anti-Infe ctive Agents metronidazo le 250 mg tablet 04-18 00:00: 00 04-27 23:59 :00 No [id number] 1 tablet 3 TIMES DAILY 1 tablet 3 TIMES DAILY (route: oral) Med Classific ation: Anti-Infe ctive Agents famotidine 20 mg tablet 2023-12 0-07 00:00: 00 Yes [id number] 1 tablet DAILY 1 tablet DAILY (route: oral) Med Classific ation: Gastroint estinal Therapy Agents omeprazole 20 mg capsule,del ayed release 4-05 00:00: 00 Yes [id number] 1 capsule 2 TIMES DAILY 1 capsule 2 TIMES DAILY (route: oral) Med Classific ation: Gastroint estinal Therapy Agents clindamycin HCl 300 mg capsule 05-13 00:00: 00 Yes [id number] 1 capsule 3 TIMES DAILY 1 capsule 3 TIMES DAILY (route: oral) Med Classific ation: Anti-Infe ctive Agents oxycodone 5 mg capsule 05-13 00:00: 00 Yes [id number] 5 mg EVERY 6 HOURS 5 mg EVERY 6 HOURS (route: oral) Med Classific ation: Analgesic , Anti-infl ammatory or Antipyret ic Vital Signs Vital Name Observation Time Observation Value Commen ts Temperature 2025-06-22 11:18:00.000 98.4 [degF] Temperature 2025-06-21 13:09:00.000 97.8 [degF] Temperature 2025-05-25 10:48:00.000 97.4 [degF] Temperature 2025-05-10 09:55:00.000 97.6 [degF] Pulse 2025-06-22 11:18:00.000 66 /min Pulse 2025-06-21 13:09:00.000 66 /min Pulse 2025-05-25 10:48:00.000 60 /min Pulse 2025-05-10 09:55:00.000 60 /min Respirations 2025-06-22 11:18:00.000 18 /min Respirations 2025-06-21 13:09:00.000 18 /min Respirations 2025-05-25 10:48:00.000 18 /min Respirations 2025-05-10 09:55:00.000 16 /min Systolic Blood Pressure 2025-06-22 11:18:00.000 122 mm [Hg] Systolic Blood Pressure 2025-06-21 13:09:00.000 122 mm [Hg] Systolic Blood Pressure 2025-05-25 10:48:00.000 112 mm [Hg] Systolic Blood Pressure 2025-05-10 09:55:00.000 118 mm [Hg] Diastolic Blood Pressure 2025-06-22 11:18:00.000 78 mm [Hg] Diastolic Blood Pressure 2025-06-21 13:09:00.000 74 mm [Hg] Diastolic Blood Pressure 2025-05-25 10:48:00.000 70 mm [Hg] Diastolic Blood Pressure 2025-05-10 09:55:00.000 68 mm [Hg] Plan of Treatment Planned Activity Planned Date Details Comments Future Scheduled Test SKILLED NU RSE TO EVALUATE PATIENT, IDENTIFY PRIMARY AND CO-MORBID CONDITIONS CODED PER CODING GUIDELINES, AND DEVELOP PATIENT SPECIFIC PLAN OF CARE THAT INCLUDES PATIENT GOAL FOR HOME HEALTH. [code = SKILLED NURSE TO EVALUATE PATIENT, IDENTIFY PRIMARY AND CO-MORBID CONDITIONS CODED PER CODING GUIDELINES, AND DEVELOP PATIENT SPECIFIC PLAN OF CARE THAT INCLUDES PATIENT GOAL FOR HOME HEALTH.] Future Scheduled Test SKILLED NU RSE TO PRE-POUR MEDICATION PER MEDICATION LIST DAILY [code = SKILLED NURSE TO PRE-POUR MEDICATION PER MEDICATION LIST DAILY ] Future Scheduled Test PATIENT MA Y HAVE ONE SET OF EMERGENCY MEDICATION NOT TO BE PRE-POURED ANY SOONER THAN 24 HOURS BEFORE SEVERE INCLEMENT WEATHER OR EMERGENT EVENT AND FOLLOWING SKILLED NURSE EVALUATION OF PATIENT SAFETY. [code = PATIENT MAY HAVE ONE SET OF EMERGENCY MEDICATION NOT TO BE PRE-POURED ANY SOONER THAN 24 HOURS BEFORE SEVERE INCLEMENT WEATHER OR EMERGENT EVENT AND FOLLOWING SKILLED NURSE EVALUATION OF PATIENT SAFETY.] Future Scheduled Test SKILLED NU RSE TO O/A OF PATIENTS MENTAL/BEHAVIORAL STATUS, ASSESS VITAL SIGNS WEEKLY. ALLOW 2 PRNS FOR MEDICATION MANAGEMENT. [code = SKILLED NURSE TO O/A OF PATIENTS MENTAL/BEHAVIORAL STATUS, ASSESS VITAL SIGNS WEEKLY. ALLOW 2 PRNS FOR MEDICATION MANAGEMENT.] Future Scheduled Test SKILLED NU RSE FOR O/A OF ALTERED MOOD [code = SKILLED NURSE FOR O/A OF ALTERED MOOD] Future Scheduled Test MEDICATION S WILL BE HELD AND STORED IN LOCKBOX [code = MEDICATIONS WILL BE HELD AND STORED IN LOCKBOX] Future Scheduled Test SKILLED NU RSE FOR O/A OF GENERAL HEALTH STATUS OF PAIN, CARDIAC, RESPIRATORY, GASTROINTESTINAL, GENITOURINARY, SKIN, NEUROLOGIC, ENDOCRINE SYSTEMS TO IDENTIFY CHANGES ASSOCIATED WITH EXACERBATION FOR EARLY INTERVENTION OF COMPLICATIONS WEEKLY. [code = SKILLED NURSE FOR O/A OF GENERAL HEALTH STATUS OF PAIN, CARDIAC, RESPIRATORY, GASTROINTESTINAL, GENITOURINARY, SKIN, NEUROLOGIC, ENDOCRINE SYSTEMS TO IDENTIFY CHANGES ASSOCIATED WITH EXACERBATION FOR EARLY INTERVENTION OF COMPLICATIONS WEEKLY.] Future Scheduled Test SKILLED NU RSE FOR O/A AND SKILLED TEACHING RELATED TO MANAGEMENT OF DEPRESSIVE SYMPTOMS AND/OR DEPRESSION. SN TO REPORT SIGNIFICANT CHANGE IN DEPRESSIVE SYMPTOMS TO CLINICAL PROVIDER FOR EARLY INTERVENTION. [code = SKILLED NURSE FOR O/A AND SKILLED TEACHING RELATED TO MANAGEMENT OF DEPRESSIVE SYMPTOMS AND/OR DEPRESSION. SN TO REPORT SIGNIFICANT CHANGE IN DEPRESSIVE SYMPTOMS TO CLINICAL PROVIDER FOR EARLY INTERVENTION.] Future Scheduled Test SKILLED NU RSE TO PERFORM HOME SAFETY AND FALL ASSESSMENT AND PROVIDE INSTRUCTION TO IMPLEMENT HOME SAFETY AND FALL PREVENTION STRATEGIES. [code = SKILLED NURSE TO PERFORM HOME SAFETY AND FALL ASSESSMENT AND PROVIDE INSTRUCTION TO IMPLEMENT HOME SAFETY AND FALL PREVENTION STRATEGIES.] Future Scheduled Test SKILLED NU RSE FOR OBSERVATION AND ASSESSMENT OF PATIENTS PAIN LEVEL AND EFFECTIVENESS OF PAIN MANAGEMENT REGIMEN. SKILLED NURSE TO INSTRUCT PATIENT/CAREGIVER REGARDING PHARMACOLOGIC AND NON-PHARMACOLOGIC PAIN CONTROL MEASURES. SKILLED NURSE TO REPORT TO PHYSICIAN IF PAIN IS UNCONTROLLED WITH CURRENT PAIN MANAGEMENT REGIMEN. [code = SKILLED NURSE FOR OBSERVATION AND ASSESSMENT OF PATIENTS PAIN LEVEL AND EFFECTIVENESS OF PAIN MANAGEMENT REGIMEN. SKILLED NURSE TO INSTRUCT PATIENT/CAREGIVER REGARDING PHARMACOLOGIC AND NON-PHARMACOLOGIC PAIN CONTROL MEASURES. SKILLED NURSE TO REPORT TO PHYSICIAN IF PAIN IS UNCONTROLLED WITH CURRENT PAIN MANAGEMENT REGIMEN.] Future Scheduled Test SKILLED NU RSE TO REVIEW PATIENT MEDICATIONS. INSTRUCT PATIENT/CAREGIVER ON MONITORING OF EFFECTIVENESS, ADVERSE DRUG REACTIONS, SIDE EFFECTS OF ALL MEDICATIONS (PRESCRIPTION/-OTC), AND HOW AND WHEN TO REPORT PROBLEMS. [code = SKILLED NURSE TO REVIEW PATIENT MEDICATIONS. INSTRUCT PATIENT/CAREGIVER ON MONITORING OF EFFECTIVENESS, ADVERSE DRUG REACTIONS, SIDE EFFECTS OF ALL MEDICATIONS (PRESCRIPTION/-OTC), AND HOW AND WHEN TO REPORT PROBLEMS.] Future Scheduled Test SKILLED NU RSE FOR O/A OF CLIENT'S SLEEP PATTERNS. MAY TEACH INTERVENTIONS R/T ACQUIRING IMPROVED REST [code = SKILLED NURSE FOR O/A OF CLIENT'S SLEEP PATTERNS. MAY TEACH INTERVENTIONS R/T ACQUIRING IMPROVED REST] Future Scheduled Test SKILLED NU RSE TO ASSESS PATIENTS PSYCHOSOCIAL STATUS TO IDENTIFY POTENTIAL ISSUES THAT MAY COMPLICATE THE PROVISION OF THE PLAN OF CARE INCLUDING THE PATIENTS ABILITY TO ACCESS COMMUNITY RESOURCES AND PSYCHOSOCIAL SUPPORT SERVICES. [code = SKILLED NURSE TO ASSESS PATIENTS PSYCHOSOCIAL STATUS TO IDENTIFY POTENTIAL ISSUES THAT MAY COMPLICATE THE PROVISION OF THE PLAN OF CARE INCLUDING THE PATIENTS ABILITY TO ACCESS COMMUNITY RESOURCES AND PSYCHOSOCIAL SUPPORT SERVICES.] Future Scheduled Test SKILLED NU RSE WILL MAINTAIN SITUATIONAL AWARENESS FOR SAFETY AND WILL NOTIFY CLINICAL MANAGER VIDEO GAMES AND PHYSICIAN/PROVIDER WITH ANY CHANGE IN CONDITION. [code = SKILLED NURSE WILL MAINTAIN SITUATIONAL AWARENESS FOR SAFETY AND WILL NOTIFY CLINICAL MANAGER VIDEO GAMES AND PHYSICIAN/PROVIDER WITH ANY CHANGE IN CONDITION.] Goal 2024-01-05 Patient Goal - T O FEEL MORE CONFIDRNT WITH MEDICATION COMPLIANCE, INCREASE STAMINA AND STRENGTH Goal 2024-09-01 Patient Goal - T O FEEL MORE CONFIDRNT WITH MEDICATION COMPLIANCE, INCREASE STAMINA AND STRENGTH Goal 2024-07-05 Patient Goal - T O FEEL MORE CONFIDRNT WITH MEDICATION COMPLIANCE, INCREASE STAMINA AND STRENGTH Goal 2024-05-07 Patient Goal - T O FEEL MORE CONFIDRNT WITH MEDICATION COMPLIANCE, INCREASE STAMINA AND STRENGTH Goal 2024-03-08 Patient Goal - T O FEEL MORE CONFIDRNT WITH MEDICATION COMPLIANCE, INCREASE STAMINA AND STRENGTH Goal 2024-12-30 Patient Goal - T O FEEL MORE CONFIDRNT WITH MEDICATION COMPLIANCE, INCREASE STAMINA AND STRENGTH Goal Patient Goal - T O FEEL MORE CONFIDRNT WITH MEDICATION COMPLIANCE, INCREASE STAMINA AND STRENGTH Goal 2025-05-03 Patient Goal - T O FEEL MORE CONFIDRNT WITH MEDICATION COMPLIANCE, INCREASE STAMINA AND STRENGTH Goal 2025-02-28 Patient Goal - T O FEEL MORE CONFIDRNT WITH MEDICATION COMPLIANCE, INCREASE STAMINA AND STRENGTH Goal 2024-11-01 Patient Goal - T O FEEL MORE CONFIDRNT WITH MEDICATION COMPLIANCE, INCREASE STAMINA AND STRENGTH Goal Provider Goal - A PLAN OF CARE WILL BE ESTABLISHED THAT MEETS PATIENT'S PENITENTIARY NEEDS AND INCLUDES PATIENT GOAL FOR HOME HEALTH. Goal Provider Goal - PATIENT WILL COMPLY WITH MEDICATION WHEN SKILLED NURSE PRE-POURS MEDICATION THROUGHOUT CERTIFICATION PERIOD. Goal Provider Goal - MEDICATION WILL BE AVAILABLE DURING INCLEMENT WEATHER OR EMERGENT EVENT THROUGHOUT CERTIFICATION PERIOD. Goal Provider Goal - ALTERED MENTAL/BEHAVIORAL STATUS WILL BE IDENTIFIED PROMPTLY AND INTERVENTION INITIATED QUICKLY TO MINIMIZE ASSOCIATED RISKS THROUGHOUT CERTIFICATION PERIOD. Goal Provider Goal - PATIENT WILL BE ABLE TO PERFORM DAILY FUNCTIONS AND HAVE OPTIMAL IMPROVEMENT IN MOOD STABILITY THROUGHOUT CERTIFICATION PERIOD. Goal Provider Goal - MEDICATION WILL BE STORED IN LOCKBOX FOR SAFETY. Goal Provider Goal - CHANGE IN GENERAL HEALTH STATUS WILL BE IDENTIFIED AND REPORTED TO PHYSICIAN FOR PROMPT INTERVENTION TO MINIMIZE ASSOCIATED RISKS THROUGHOUT CERTIFICATION PERIOD. Goal Provider Goal - PATIENT WILL REMAIN SAFE WITHOUT DECOMPENSATION IN DEPRESSIVE CONDITION, WHILE MAINTAINING OPTIMAL LEVEL OF MENTAL HEALTH AND WELL BEING THROUGHOUT CERTIFICATION PERIOD. Goal Provider Goal - PATIENT/CAREGIVER WILL VERBALIZE/DEMONSTRATE EFFECTIVE HOME SAFETY AND FALL PREVENTION STRATEGIES THROUGHOUT CERTIFICATION PERIOD. Goal Provider Goal - PATIENT/CAREGIVER WILL DEMONSTRATE UNDERSTANDING OF PHARMACOLOGIC AND NONPHARMACOLOGIC PAIN CONTROL MEASURES AND PATIENT WILL HAVE IMPROVEMENT IN PAIN INTERFERING WITH ACTIVITY EVIDENCED BY PAIN AT A LEVEL THAT IS ACCEPTABLE TO THE PATIENT AND PAIN LEVEL WITHIN ESTABLISHED PARAMETERS BY END OF CERTIFICATION PERIOD. Goal Provider Goal - PATIENT/CAREGIVER WILL VERBALIZE UNDERSTANDING OF EDUCATION PROVIDED ON MEDICATIONS BY THE END OF THE CERTIFICATION PERIOD. Goal Provider Goal - PATIENT WILL REPORT AT LEAST 6-8 HOURS A NIGHT, RESTFUL SLEEP PATTERNS ACHIEVED USING THERAPEUTIC INTERVENTIONS BEFORE THE END OF THE CERTIFICATION PERIOD. Goal Provider Goal - PSYCHOSOCIAL NEEDS WILL BE IDENTIFIED AND PLAN IMPLEMENTED TO MINIMIZE RISK THROUGHOUT CERTIFICATION PERIOD. Goal Provider Goal - PATIENT WILL REMAIN SAFE IN THE COMMUNITY AND WILL BE FREE OF DANGER TO SELF AND OTHERS THROUGHOUT THE CERTIFICATION PERIOD. Progress Notes Progress Notes <paragraph>[Visit Date: 2024 by BRUCE SAHU RN]:</paragraph><paragraph>JUNE 24 SNV PATIENT WAS PLEASANT AND COOPERATIVE DURING ASSESSMENT. APPEARS ANXIOUS. FREQUENTLY LOOKING AT THE GROUND RATHER THAN MAKING EYE CONTACT WITH THIS NURSE. COMPLIANT WITH PRE-FILLED MEDICATION FROM PREVIOUS DAY. MEDICATIONS ARE PRE- FILLED THROUGH NEXT NURSING VISIT</paragraph> <paragraph>[Visit Date: 2024 by GONZALO BARRAGAN ([facility], [place]) [facility] [place] - OT]:</paragraph><paragraph>OT VISIT FOR 06-22-25 PATIENT SEEN FOR SKILLED OT TREATMENT. PATIENT STATES THAT SHE IS FEELING VERY LOW AND LONELY. OT PROVIDED RECOMMENDATIONS TO INCREASE ENGAGEMENT IN SOCIALIZATION AND LEUSIRE TASKS. THERAPEUTIC EXERCISE PROVIDED TO INCREASE FUNCTIONAL STRENGTH, BALANCE, ACTIVITY TOLERANCE AND ACTIVITY ENDURANCE. PATIENT ABLE TO PERFORM 50 PERCENT OF THER EX IN STANDING POSITION WITH SBA AND OCCASIONAL VERRBAL CUES FOR TECH. ADDED 1 POUND WEIGHT UNILATERALLY TO FURTHER ADVANCE PROGRESS . THERAPEUTIC REST REQUIRED X 2 DURING SESSION. BARRIERS: WEAKNESS, PAIN PSYCH DX.. DC PLANNING ONGOING. PATIENT REMAINS HOMEBOUND DUE TO TAXING EFFORT TO LEAVE HOME AND ASSIST OF ANOTHER PERSON DUE TO WEAKNESS.</paragraph> Encounters Start Date/Time End Date/Time Encounter Type Admission Type Attending [facility] Care Facility Care Department Encounter ID Discharge Date Discharge Status Discharge Condition Discharge Reason Percent Goals Met 2025-05-04 00:00:00 2025-07-02 00:00:00 Outpatient RECERTIFIC ATION LUIS HEIDI [facility] [id number]
== END 2025-06-27 16:43 | disposition home or self-care (01) ==
PROVIDERS: Emergency Provider Emergency Medicine; PCP Internal Medicine
DX: S06.0X0A Concussion without loss of consciousness, initial encounter (principal); S80.01XA Contusion of right knee, initial encounter; S50.01XA Contusion of right elbow, initial encounter; W01.0XXA Fall on same level from slipping, tripping and stumbling without subsequent striking against object, initial encounter; M25.561 Pain in right knee; M25.521 Pain in right elbow; M54.2 Cervicalgia; R51.9 Headache, unspecified; E78.5 Hyperlipidemia, unspecified; E03.9 Hypothyroidism, unspecified; Z87.891 Personal history of nicotine dependence; Y93.89 Activity, other specified; Y92.030 Kitchen in apartment as the place of occurrence of the external cause; Y99.9 Unspecified external cause status
CPT/HCPCS: 70450; 72125; 73080; 73564; 99283; 99284

== ENCOUNTER → 2025-06-27 13:41 | Outpatient (BNV) | payer MEDICARE, MEDICAID, SELFPAY | PROVIDERS: Emergency Provider Emergency Medicine; PCP Internal Medicine; Visit Provider Radiology Diagnostic Radiology | DX: M25.761 Osteophyte, right knee (principal); M25.521 Pain in right elbow | CPT/HCPCS: 73080; 73564 ==

== ENCOUNTER 2025-06-29 10:21 | Emergency (ER) | payer MEDICARE, MEDICAID, SELFPAY ==
[2025-06-29 10:27] VITALS: BP 120/80; PULSE 89; O2SAT 95
[2025-06-29 10:57] VITALS: BP 110/56; PULSE 82; RESP 16; TEMP 36.3; O2SAT 97; BMI 26.4
--- NOTE | 2025-06-29 11:23 | ED.GENADULT ---
HPI - General Adult General Chief complaint: Headache Stated complaint: ESCALERA/ DIZZINESS X1 WEEK, CONCUSSION Time Seen by Provider: 06/29/25 11:18 Source: patient, RN notes reviewed and old records reviewed Mode of arrival: wheelchair Limitations: no limitations History of Present Illness ED Provider: Jaquelin HPI narrative: 65-year-old female with a past medical history significant for PTSD, personality disorder, bipolar disorder, hypothyroidism, GERD, hyperlipidemia presents for evaluation of a headache. The patient is seen in his ER 2 days ago after a nonsyncopal fall. She had a workup that included imaging. No traumatic injuries were discovered including on head CT The patient was told that she had a concussion. She re-presented to the ER today due to headache, dizziness and ?feeling out of it. ? The patient reports that her symptoms have improved but she still feels somewhat out of it. She is able to ambulate without difficulty. Over last 2 days she has been taking Tylenol with some improvement but did not take any today Denies any further falls or trauma to the head or neck Related Data Home Medications ?Medication ?Instructions ?Recorded ?Confirmed clonazepam 0.25 mg disintegrating 0.25 mg PO TID PRN anxiety 05/16/24 05/16/24 tablet famotidine 20 mg tablet 20 mg PO BEDTIME Acid Reflux 05/16/24 05/19/24 lamotrigine 200 mg tablet 200 mg PO BEDTIME 05/16/24 05/16/24 lamotrigine 25 mg tablet 50 mg PO BID 05/16/24 05/19/24 omeprazole 20 mg capsule,delayed 20 mg PO DAILY 05/16/24 05/16/24 release ascorbic acid (vitamin C) 1,000 mg 1,000 mg PO DAILY 05/19/24 05/19/24 tablet (Vitamin C) calcium carbonate 600 mg PO DAILY 05/19/24 05/19/24 cholecalciferol (vitamin D3) 25 25 mcg PO DAILY 05/19/24 05/19/24 mcg (1,000 unit) capsule (Vitamin D3) coenzyme Q10 100 mg capsule 100 mg PO DAILY 05/19/24 05/19/24 (CoQ-10) thevqgvg-gugp-fbsv 8 mg-folic 400 1 tab PO DAILY 05/19/24 05/19/24 mcg-K 50 mcg-lutein 300 mcg tablet (Centrum Silver Women) Previous Rx's ?Medication ?Instructions ?Recorded chlorpromazine 25 mg tablet 50 mg (2 x 25 mg) PO DAILY 30 days 12/02/23 #60 tabs chlorpromazine 25 mg tablet 75 mg (3 x 25 mg) PO BEDTIME 30 12/02/23 days #90 tabs levothyroxine 125 mcg tablet 125 mcg PO DAILY@0600 30 days #30 12/02/23 tabs simvastatin 40 mg tablet 40 mg PO BEDTIME 30 days #30 tabs 12/02/23 trazodone 50 mg tablet 50 mg PO BEDTIME PRN Insomnia 30 12/02/23 days #30 tabs trihexyphenidyl 2 mg tablet 2 mg PO QAM 30 days #30 tabs 12/02/23 ziprasidone HCl 20 mg capsule 20 mg PO BIDWM 30 days #60 caps 12/02/23 ziprasidone HCl 80 mg capsule 80 mg PO BIDWM 30 days #60 caps 12/02/23 lidocaine 5 % topical patch 1 patch topical DAILY #15 ea 06/27/25 (Lidoderm) ondansetron 4 mg disintegrating 4 mg PO Q8H PRN nausea and 06/29/25 tablet vomiting #20 tabs Allergies Allergy/AdvReac Type Severity Reaction Status Date / Time Penicillins (PENICILLINS) Allergy Severe HIVES Verified 06/29/25 10:59 sulfamethoxazole (From Allergy Severe DIARRHEA Verified 06/29/25 10:59 BACTRIM) trimethoprim (From BACTRIM) Allergy Severe DIARRHEA Verified 06/29/25 10:59 aripiprazole (From ABILIFY) Allergy Intermediate ATAXIA Verified 06/29/25 10:59 aspirin (ASPIRIN) Allergy Intermediate STOMACH Verified 06/29/25 10:59 CRAMPS benztropine (From COGENTIN) Allergy Intermediate CONFUSION, Verified 06/29/25 10:59 memory loss bupropion (BUPROPION) Allergy Intermediate DIZZINESS Verified 06/29/25 10:59 erythromycin base Allergy Intermediate GI UPSET Verified 06/29/25 10:59 (ERYTHROMYCIN BASE) ibuprofen (From MOTRIN) Allergy Intermediate STOMACH Verified 06/29/25 10:59 CRAMPS olanzapine (From ZYPREXA) Allergy Intermediate TONGUE Verified 06/29/25 10:59 MOVEMENTS perphenazine (From TRILAFON) Allergy Intermediate ARM AND Verified 06/29/25 10:59 LEG MOVEMENTS, FALL risperidone (From RISPERDAL) Allergy Intermediate TONGUE Verified 06/29/25 10:59 MOVEMENT milk Allergy Drowsy Verified 06/29/25 10:59 egg AdvReac Stomach Verified 06/29/25 10:59 Upset From INDERAL Allergy Intermediate WHEEZING Uncoded 06/29/25 10:59 Review of Systems Constitutional: Constitutional: Denies body ache(s), Denies chills, Denies fever(s), Denies frequent falls and Reports headache(s) Eyes: Eyes: Denies blurry vision ENT: Denies vertigo, Reports dizziness and Reports headache(s) Cardiovascular: Cardiovascular: Denies chest pain and Denies dyspnea on exertion Respiratory: Respiratory: Denies cough and Denies dyspnea on exertion Gastrointestinal: Gastrointestinal: Denies abdominal pain, Denies nausea and Denies vomiting Musculoskeletal: Musculoskeletal: Denies back pain Integumentary/Breasts: Skin/Breast: Denies rash Neurologic: Denies vertigo, Reports dizziness, Denies frequent falls and Reports headache(s) Psychiatric: Psychiatric: Denies anxiety PMFSH Past Medical History Medical History Routine medical exam CKD (chronic kidney disease), stage IV Bipolar disorder Neck pain Murmur GERD (gastroesophageal reflux disease) Hypothyroidism Irritable bowel syndrome (IBS) Hyperlipidemia Anxiety and depression Dissociative identity disorder Surgical History Hx of colonoscopy History of total thyroidectomy Social History Social History Household Members: None Household Members Other:: roommate Housing: Apartment Are you a primary property caretaker to a significant other at home: No Do you presently have visiting nurse or other home services: Yes (pt has VNA for only one day prior to admission.) Unable to assess alcohol history related to: Unknown Alcohol intake: never Comment: aware of trip hazard Patient Tobacco Use Status: Former Tobacco user Tobacco use type: Cigarette Cigarette Packs Per Day: 1 Cigarettes Per Day: 20.0 Years Smoked: 20 e-Cigarette/Vaping Use: Never Used Second Hand Smoke Exposure: No Advance Directives: No Advance Directives Information Provided: Yes service: No Sexual orientation: Did not discuss Physical Exam ED Vital Signs: Vital Signs - 24 hr 07/30/25 10:57 Temperature 97.3 F Pulse Rate 82 Respiratory Rate 16 Blood Pressure 110/56 L Pulse Oximetry 97 Oxygen Delivery Method Room Air BMI result Body Mass Index 26.4 Const General: healthy appearing, comfortable, no acute distress, alert and awake Nutritional Appearance: well nourished Orientation/consciousness: patient oriented x3 HENMT Head: Yes normocephalic and Yes atraumatic Throat: Yes posterior oropharynx normal Eyes Eyelids: Yes eyelids normal Conjunctivae: conjunctivae normal Sclerae: sclerae normal Corneas: corneas normal Pupils: Equal, round and reactive pupils present EOM: EOMs intact bilaterally Neck Neck: Yes full ROM Resp Effort & Inspection: normal respiratory effort, able to speak in complete sentences and not labored Cardio Rate: regular rate Rhythm: regular rhythm GI Inspection: No distended Palpation (GI): Soft to palpation, not firm, nontender, no guarding and not rigid Skin General skin exam: elasticity normal Neuro General: patient oriented x3 Cranial nerves: Yes CN's II-XII intact bilaterally, Yes Equal, round and reactive pupils present and Yes Bilaterally intact EOM present Cognition (Neuro): normal cognition Extrem Other: Moving all extremities well without any obvious deformities Course Reevaluation(s) Reevaluation #1: Upon discharge, the patient reports that she has questions about difficulty swallowing that she has been experiencing for the last 2 weeks. She is still able to get her pills down but is having difficulty. She will be referred to GI. She was able to drink water and take her Tylenol in the ER today. Time: 11:54 Medications Administered Discontinued Medications Generic Name Dose Route Start Last Admin Trade Name Mounika PRN Reason Stop Dose Admin Acetaminophen 650 mg 06/29/25 11:19 06/29/25 11:26 Acetaminophen 325 Mg Tablet PO 06/29/25 11:20 650 mg ONCE ONE Administration Ondansetron HCl 4 mg 06/29/25 11:19 06/29/25 11:26 Ondansetron Odt 4 Mg Tab.Rapdis TRANSLINGU 06/29/25 11:20 4 mg ONCE ONE Administration Medical Decision Making Medical Decision Making MDM Narrative: 65-year-old female presents for evaluation of headache and dizziness. She was seen here 2 days ago for a fall. She had a CT scan of her brain, cervical spine, x-ray of her knee and elbow, all of which showed no acute traumatic injuries. The patient has had no chest pain, shortness of breath. She reports her symptoms have improved. Her physical exam is reassuring, no evidence of traumatic injuries, she is ambulating with a steady, even gait. No focal neurologic deficits. I do not see any indication to repeat imaging or obtain additional labs, her symptoms are most likely related to postconcussive syndrome. Differential Diagnosis Differential Diagnoses: The differential diagnosis associated with the presentation includes Headache Dizziness Orthostasis Intracranial hemorrhage Postconcussive syndrome Concussion External Record Review External record reviewed: Outpatient record Tests considered The following testing was considered but not selected: Considered labs, repeat imaging but ultimately felt it was not indicated Discharge Plan Discharge Clinical Impression: Headache, Postconcussion syndrome Patient Disposition: Home, Self-Care Instructions: Post Concussion Syndrome (ED) Additional Instructions: I reviewed your workup from your recent visit. It is comments to have concussion symptoms for about a week after a head injury. Sometimes the symptoms can last even longer than a week I do not think that you need to repeat any imaging such as a CAT scan at this time. You may follow up with your primary doctor In the meantime, you may use Tylenol for headaches and pain. You may use Zofran as needed for nausea and vomiting Prescriptions: New ondansetron 4 mg tablet,disintegrating 4 mg PO Q8H PRN (Reason: nausea and vomiting) Qty: 20 0RF No Action trazodone 50 mg Tablet 50 mg PO BEDTIME PRN (Reason: Insomnia) 30 Days Qty: 30 0RF ziprasidone HCl 80 mg capsule 80 mg PO BIDWM 30 Days Qty: 60 0RF simvastatin 40 mg tablet 40 mg PO BEDTIME 30 Days Qty: 30 0RF ziprasidone HCl 20 mg Capsule 20 mg PO BIDWM 30 Days Qty: 60 0RF Rx Instructions: give with food (meal/snack) chlorpromazine 25 mg Tablet 50 mg PO DAILY 30 Days Qty: 60 0RF chlorpromazine 25 mg Tablet 75 mg PO BEDTIME 30 Days Qty: 90 0RF levothyroxine 125 mcg Tablet 125 mcg PO DAILY@0600 30 Days Qty: 30 0RF trihexyphenidyl 2 mg tablet 2 mg PO QAM 30 Days Qty: 30 0RF lamotrigine 25 mg tablet 50 mg PO BID famotidine 20 mg tablet 20 mg PO BEDTIME omeprazole 20 mg capsule,delayed release(DR/EC) 20 mg PO DAILY lamotrigine 200 mg tablet 200 mg PO BEDTIME clonazepam 0.25 mg tablet,disintegrating 0.25 mg PO TID PRN (Reason: anxiety) ascorbic acid (vitamin C) [Vitamin C] 1,000 mg Tablet 1,000 mg PO DAILY calcium carbonate 600 mg calcium (1,500 mg) Tablet 600 mg PO DAILY cholecalciferol (vitamin D3) [Vitamin D3] 25 mcg (1,000 unit) Capsule 25 mcg PO DAILY coenzyme Q10 [CoQ-10] 100 mg Capsule 100 mg PO DAILY Centrum Silver Women 8 mg iron-400 mcg-50 mcg Tablet 1 tab PO DAILY lidocaine [Lidoderm] 5 % adhesive patch,medicated 1 patch topical DAILY Qty: 15 0RF Rx Instructions: leave on most painful area for up to 12 hrs Referrals: [facility] [place] G[facility] [Provider Group, Gastroenterology] Referral Note: difficulty swallowing Print Language: Czech
[2025-06-29 12:02] VITALS: BP 110/56; PULSE 82; RESP 16; TEMP 36.3; O2SAT 97
--- OUTSIDE RECORDS SUMMARY | 2025-06-29 12:24 | XMS_ITS | Clinical Summary ---
Author Organization [address] [facility] Address [address] [place] [address] Phone Care Team Providers Care Field Mechanic/Site Lead Name Role Phone Lino Parker MD Primary Care Provider [phone] Allergies Active Allergy Reactions Criticality Noted Date [...] of both feet 11/15/2024 Dissociative identity disorder ([facility] V24, [facility] V28) 07/20/2018 Hyperlipidemia 07/20/2018 Hypothyroidism 07/20/2018 Mood disorder ([facility] V24) 07/20/2018 PTSD (post-traumatic stress disorder) 07/20/2018 Medical History Medical History Date Comments Other bipolar disorder ([facility] V24, [facility] V28) DX:Other bipolar disorder ([facility]) Post-traumatic stress disord er, unspecified DX:Post-traumatic stress dis order, unspecified 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[facility] V24, [facility] V28) DX:Dissociative identity dis order ([facility]) Mood disorder ([facility] V24) DX:M ood disorder ([facility]) No diagnosis on [place] II DX:No di agnosis on [place] II Social History Tobacco Use Types Packs/Day [...] Insurance MEDICARE [place]ICAID - [place] Care Teams Field Mechanic/Site Lead Relationship Specialty Start Date End Date Lino Parker MD [address] [place] [address] [place] [address] PCP - General Internal Medicine 07/13/18
--- OUTSIDE RECORDS SUMMARY | 2025-06-29 12:24 | XMS_ITS | Clinical Summary ---
Author Organization [facility] Address [address] [place] [address] Care Team Providers Care Radiological Technologist Name Role Phone Lino Parker MD Primary Care Provider [phone] Allergies Active Allergy Reactions Criticality Noted Date [...] Advance Directives For more information, please contact: [phone] Latest Code Status on File Code Status Date Activated Date Inactivated Comments Full Code 04/15/2024 2:24 PM 04/17/2024 1:26 AM This code status was ascertained in the following way: discussion with patient . Care Teams Radiological Technologist Relationship Specialty Start Date End Date Lino Parker MD [address] [place] [address] [place] [address] PCP - General Internal Medicine 04/15/24
--- OUTSIDE RECORDS SUMMARY | 2025-06-29 12:24 | XMS_ITS | Encounter Summary ---
Author Organization [employer] Address [address] [facility] [address] [place] [address] Care Team Providers Care Resident Care Aid Name Role Phone Unavailable Primary Care Provider Unavailabl e Reason for Visit * Reason Onset Date Comments Extraction aftercare 05/11/2025 Encounter Details Date Type Department Care Team (Late st Contact Info) Description 05/11/2025 Telephone [facility] [address] [place] [address] Hardeep Gibson, DMD [address] [place] [address] Extraction aftercare Social History Tobacco Use Types [...] Sent to both clinical support and front clerk documented in this encounter Plan of Treatment Not on file documented as of this encounter Visit Diagnoses Not on filedocumented in this encounter
--- OUTSIDE RECORDS SUMMARY | 2025-06-29 12:25 | XMS_ITS | Clinical Summary ---
Author Organization [facility] Address [address] [address] Phone Care Team Providers Care Director Global Development Name Role Phone Lino Parker MD Primary Care Provider [phone] Allergies Active Allergy Reactions Criticality Noted Date [...] [place] & [facility] [place] & [facility] & [place] Care Teams Director Global Development Relationship Specialty Start Date End Date Lino Parker MD [address] [place] [address] [place] [id number] PCP - General Internal Medicine 10/24/23 Additional Source Comments The information contained in this document represents components of the legal health record. It is not the complete legal health record.[facility]
--- OUTSIDE RECORDS SUMMARY | 2025-06-29 12:25 | XMS_ITS | Patient Health Record ---
Author Organization [facility] Address [address] [place] [address] Care Team Providers Care Wood Boatbuilder Name Role Phone Keith (RETIRED) Lino NOBLE Primary Care Provider Unavailable Abelardo Sal Unavailable [phone] Allergies Allergen (clinical drug ingredient) Drug/Non Drug [...] Problem Status W/U Status Risk Notes Problem [id number] Encounter for screening for malignant neoplasm of colon (Z12.11) Active confirmed Problem 194591399 History of adenomatous polyp of colon (Z86.010) Active confirmed Problem 831850341 Irritable bowel syndrome with diarrhea (K58.0) Active confirmed Problem Screening for malignant neoplasm of rectum (153629939) Encounter for screening for malignant neoplasm of rectum (Z12.12) Active confirmed Problem [id number] Preprocedural examination (Z01.818) Active confirmed Problem Gastroesophageal reflux (K21.9) Active confirmed Problem Diverticulosis of colon (873209605) Diverticulosis of colon (K57.30) Active confirmed Problem 261428140 Gastroesophageal reflux disease, unspecified whether esophagitis present [...] Start Date Coverage End Date MEDICAID OF [facility] [address] [place] [address] [id number] KAY CASIANO Self - patient is the insured Medical (General) History Medical History History ICD Code Screening colonoscopy 010--1.2cm sigmoid tubular adenoma, sigmoid diverticulosis, internal hemorrhoids PTSD, Disassociative identit y disorder, Depression, Bipolar disease--Dr. Adelina Shoemaker Hyperlipidemia Denies ID,DM,CVA,Lung disease,renal dise ase Hypothyroid in relation to thyroidectomy for thyroid cancer as below IBS--neg. celiac disease labs in 05/2015 Negative colonoscopy in 10/2016 Surgical History Surgery Date(Month/Year) Total thyroidectomy--cancer
--- OUTSIDE RECORDS SUMMARY | 2025-07-01 20:00 | XMS_ITS | Clinical Summary ---
Author Organization Unknown Care Team Providers Care Custodial Operations Manager Name Role Phone RICHI NOBLE, ABHINAV Unavailable Unavailable ROM PT, SANDRA Unavailable Unavailable LUIS HERMAN, HEIDI Unavailable Unavailable ARELY HOUSE REGISTRY RN, JANA Unavailable Unavailable Payers Payer Name Policy Type Policy Number Effective Date Expira tion Date [place] [id number] ON DEMAND MEDICARE - FORMERLY [facility] BILLING - ABN [id number] Problems Condition Name Condition Details Condition Category [...] 2022-12 00:00: 00 12-07 23:59 :00 No [id number] 1 capsule DAILY 1 capsule DAILY (route: oral) Med Classific ation: Gastroint estinal Therapy Agents chlorpromaz ine 25 mg tablet 2022-12 2- 00:00: 00 12-07 23:59 :00 No [id number] 1 tablet EVERY AM 1 tablet EVERY AM (route: oral) Med Classific ation: Central Nervous System Agents clonazepam 0.25 mg disintegrat ing tablet 2022-12 00:00: 00 12-07 23:59 :00 No [id number] 1 tablet 3 TIMES DAILY 1 tablet 3 TIMES DAILY (route: oral) Med Classific ation: Central Nervous System Agents haloperidol 2 mg tablet 2022-12 00:00: 00 11-11 23:59 :00 No [id number] Per instruc tions AT BEDTIME Per instructio ns AT BEDTIME (route: oral) Med Classific ation: Central Nervous System Agents trazodone 50 mg tablet 2022-12 00:00: 00 12-08 23:59 :00 No [id number] 1 tablet AT BEDTIME MAY REPEAT ONE TIME NEEDED 1 tablet AT BEDTIME MAY REPEAT ONE TIME NEEDED (route: oral) Med Classific ation: Central Nervous System Agents ziprasidone 20 mg capsule 2022-12 00:00: 00 12-07 23:59 :00 No [id number] 1 capsule TWICE A DAY 1 capsule TWICE A DAY (route: oral) Med Classific ation: Central Nervous System Agents lamotrigine 100 mg tablet 2022-12 00:00: 00 11-11 23:59 :00 No [id number] Per instruc tions AT BEDTIME Per instructio ns AT BEDTIME (route: oral) Med Classific ation: Central Nervous System Agents lamotrigine 25 mg tablet 2022-12 00:00: 00 12-08 23:59 :00 No [id number] 12 tablet EVERY MORNING & 1 AT 7 PM 12 tablet EVERY MORNING & 1 AT 7 PM (route: oral) Med Classific ation: Central Nervous System Agents levothyroxi ne 125 mcg tablet 2022-12 00:00: 00 12-07 23:59 :00 No [id number] 1 tablet EVERY DAY 1 tablet EVERY DAY (route: oral) Med Classific ation: Endocrine simvastatin 40 mg tablet 2022-12 00:00: 00 12-08 23:59 :00 No [id number] 1 tablet AT BEDTIME DIRECTED 1 tablet AT BEDTIME DIRECTED (route: oral) Med Classific ation: Cardiovas cular Therapy Agents trihexyphen idyl 2 mg tablet 2022-12 00:00: 00 12-07 23:59 :00 No [id number] 1 tablet EVERY 1 tablet EVERY (route: oral) Med Classific ation: Central Nervous System Agents ziprasidone 80 mg capsule 2022-12 00:00: 00 12-07 23:59 :00 No [id number] 1 capsule TWICE A DAY 1 capsule TWICE A DAY (route: oral) Med Classific ation: Central Nervous System Agents calcium carbonate 250 mg-vitamin D3 3.125 mcg (125 unit) tablet 12-08 00:00: 00 01-31 23:59 :00 No [id number] 2 tablet NOON 2 tablet NOON (route: oral) Med Classific ation: Electroly te Balance-N utritiona l Products Centrum Silver Women 8 mg iron-400 mcg-50 mcg tablet 12-08 00:00: 00 Yes [id number] 1 tablet NOON 1 tablet NOON (route: oral) Med Classific ation: Electroly te Balance-N utritiona l Products chlorpromaz ine 25 mg tablet 12-08 00:00: 00 02-17 23:59 :00 No [id number] 2-3 tablet 2 TIMES DAILY 2-3 tablet 2 TIMES DAILY (route: oral) Med Classific ation: Central Nervous System Agents clonazepam 0.5 mg disintegrat ing tablet 12-08 00:00: 00 12-08 23:59 :00 No [id number] 0.5 tablet 2 TIMES DAILY 0.5 tablet 2 TIMES DAILY (route: oral) Med Classific ation: Central Nervous System Agents CoQ-10 100 mg capsule 12-08 00:00: 00 Yes [id number] 1 capsule NOON 1 capsule NOON (route: oral) Med Classific ation: Alternati ve Therapy lamotrigine 25 mg tablet 12-08 00:00: 00 23:59 :00 No [id number] 2 tablet BEDTIME 2 tablet BEDTIME (route: oral) Med Classific ation: Central Nervous System Agents levothyroxi ne 125 mcg tablet 12-08 00:00: 00 02-17 23:59 :00 No [id number] 1 tablet EVERY AM 1 tablet EVERY AM (route: oral) Med Classific ation: Endocrine omeprazole 20 mg capsule,del ayed release 12-08 00:00: 00 02-27 23:59 :00 No [id number] 1 capsule NOON 1 capsule NOON (route: oral) Med Classific ation: Gastroint estinal Therapy Agents simvastatin 40 mg tablet 12-08 00:00: 00 Yes [id number] 1 tablet BEDTIME 1 tablet BEDTIME (route: oral) Med Classific ation: Cardiovas cular Therapy Agents trazodone 50 mg tablet 12-08 00:00: 00 Yes [id number] 1 tablet BEDTIME 1 tablet BEDTIME (route: oral) Med Classific ation: Central Nervous System Agents trihexyphen idyl 2 mg tablet 12-08 00:00: 00 02-17 23:59 :00 No [id number] 1 tablet 2 TIMES DAILY 1 tablet 2 TIMES DAILY (route: oral) Med Classific ation: Central Nervous System Agents ziprasidone 20 mg capsule 12-08 00:00: 00 12-08 23:59 :00 No [id number] 1 capsule 2 TIMES DAILY 1 capsule 2 TIMES DAILY (route: oral) Med Classific ation: Central Nervous System Agents ziprasidone 80 mg capsule 12-08 00:00: 00 02-17 23:59 :00 No [id number] 1 capsule 2 TIMES DAILY 1 capsule 2 TIMES DAILY (route: oral) Med Classific ation: Central Nervous System Agents clonazepam 0.5 mg disintegrat ing tablet -08 00:00: 00 23:59 :00 No [id number] 0.5 tablet 3 TIMES DAILY 0.5 tablet 3 TIMES DAILY (route: oral) Med Classific ation: Central Nervous System Agents lamotrigine 100 mg tablet 1-08 00:00: 00 02-17 23:59 :00 No [id number] 2 tablet BEDTIME 2 tablet BEDTIME (route: oral) Med Classific ation: Central Nervous System Agents ziprasidone 20 mg capsule -08 00:00: 00 02-17 23:59 :00 No [id number] 1 capsule 2 TIMES DAILY 1 capsule 2 TIMES DAILY (route: oral) Med Classific ation: Central Nervous System Agents clonazepam 0.25 mg disintegrat ing tablet -14 00:00: 00 Yes [id number] 1 tablet 3 TIMES DAILY 1 tablet 3 TIMES DAILY (route: oral) Med Classific ation: Central Nervous System Agents Vitamin C 1,000 mg tablet 2-14 00:00: 00 Yes [id number] 1 tablet NOON 1 tablet NOON (route: oral) Med Classific ation: Electroly te Balance-N utritiona l Products Vitamin D3 25 mcg (1,000 unit) capsule -14 00:00: 00 Yes [id number] 1 capsule NOON 1 capsule NOON (route: oral) Med Classific ation: Electroly te Balance-N utritiona l Products lamotrigine 25 mg tablet 3- 00:00: 00 Yes [id number] 2 tablet 2 TIMES DAILY 2 tablet 2 TIMES DAILY (route: oral) Med Classific ation: Central Nervous System Agents calcium carbonate 600 mg calcium (1,500 mg) tablet 3-04 00:00: 00 Yes [id number] 1 tablet NOON 1 tablet NOON (route: oral) Med Classific ation: Electroly te Balance-N utritiona l Products chlorpromaz ine 25 mg tablet 3-21 00:00: 00 Yes [id number] 2 tablet EVERY AM 2 tablet EVERY AM (route: oral) Med Classific ation: Central Nervous System Agents chlorpromaz ine 25 mg tablet 02-18 00:00: 00 Yes [id number] 3 tablet BEDTIME 3 tablet BEDTIME (route: oral) Med Classific ation: Central Nervous System Agents lamotrigine 100 mg tablet 02-18 00:00: 00 Yes [id number] 2 tablet BEDTIME 2 tablet BEDTIME (route: oral) Med Classific ation: Central Nervous System Agents levothyroxi ne 125 mcg tablet 02-18 00:00: 00 Yes [id number] 1 tablet EVERY AM 1 tablet EVERY AM (route: oral) Med Classific ation: Endocrine trihexyphen idyl 2 mg tablet 02-18 00:00: 00 Yes [id number] 1 tablet EVERY AM 1 tablet EVERY AM (route: oral) Med Classific ation: Central Nervous System Agents ziprasidone 20 mg capsule 02-18 00:00: 00 Yes [id number] 1 capsule 2 TIMES DAILY 1 capsule 2 TIMES DAILY (route: oral) Med Classific ation: Central Nervous System Agents ziprasidone 80 mg capsule 02-18 00:00: 00 Yes [id number] 1 capsule 2 TIMES DAILY 1 capsule 2 TIMES DAILY (route: oral) Med Classific ation: Central Nervous System Agents Cipro 500 mg tablet 04-18 00:00: 00 04-27 23:59 :00 No [id number] 1 tablet 2 TIMES DAILY 1 tablet 2 TIMES DAILY (route: oral) Med Classific ation: Anti-Infe ctive Agents metronidazo le 250 mg tablet 04-18 00:00: 00 04-27 23:59 :00 No [id number] 1 tablet 3 TIMES DAILY 1 tablet 3 TIMES DAILY (route: oral) Med Classific ation: Anti-Infe ctive Agents famotidine 20 mg tablet 2023-12 0-07 00:00: 00 Yes [id number] 1 tablet DAILY 1 tablet DAILY (route: oral) Med Classific ation: Gastroint estinal Therapy Agents omeprazole 20 mg capsule,del ayed release 4-05 00:00: 00 Yes [id number] 1 capsule 2 TIMES DAILY 1 capsule 2 TIMES DAILY (route: oral) Med Classific ation: Gastroint estinal Therapy Agents clindamycin HCl 300 mg capsule 05-13 00:00: 00 Yes [id number] 1 capsule 3 TIMES DAILY 1 capsule 3 TIMES DAILY (route: oral) Med Classific ation: Anti-Infe ctive Agents oxycodone 5 mg capsule 05-13 00:00: 00 Yes [id number] 5 mg EVERY 6 HOURS 5 mg [...] AWARENESS FOR SAFETY AND WILL NOTIFY CLINICAL RELATIONSHIP ADVISOR AND PHYSICIAN/PROVIDER WITH ANY CHANGE IN CONDITION. [code = SKILLED NURSE WILL MAINTAIN SITUATIONAL AWARENESS FOR SAFETY AND WILL NOTIFY CLINICAL RELATIONSHIP ADVISOR AND PHYSICIAN/PROVIDER WITH ANY CHANGE IN CONDITION.] Goal 2024-12-30 Patient Goal - T O FEEL MORE CONFIDRNT WITH MEDICATION COMPLIANCE, INCREASE STAMINA AND STRENGTH Goal Patient Goal - T O FEEL MORE CONFIDRNT WITH MEDICATION COMPLIANCE, INCREASE STAMINA AND STRENGTH Goal 2024-01-05 Patient Goal - T O [...] MEDICATION COMPLIANCE, INCREASE STAMINA AND STRENGTH Goal 2025-06-28 Patient Goal - T O FEEL MORE CONFIDRNT WITH MEDICATION COMPLIANCE, INCREASE STAMINA AND STRENGTH Goal Provider Goal - A PLAN OF CARE WILL BE ESTABLISHED THAT MEETS PATIENT'S SENIOR LIVING NEEDS AND INCLUDES PATIENT GOAL FOR HOME [...] Notes Progress Notes <paragraph>[Visit Date: 2024 by HEIDI SMITH RN]:</paragraph><paragraph>RECERTIFICATION VISIT FOR A 65 YEAR OLD FEMALE LIVING ALONE IN A SECOND STORY APARTMENT IN [place]. PMH INCLUDES DISSOCIATIVE IDENTITY DISORDER, BIPOLAR DISORDER, PTSD, ANXIETY, OBSESSIVE COMPULSIVE DISORDER. 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 SHE HAS WHAT SHE CALLS ALTERS , OTHER SELVES THAT SHE REPORTS TRIP AND PUSH HER SOMETIMES. SHE STATES HER ALTERS BERATE HER AND PUSH HER HEAD DOWN. KAY WRITES DOWN EVERYTHING SHE DOES AND MUST DO COMPULSIVELY OVER AND OVER AGAIN EACH DAY. SHE SAYS ITS EXHAUSTING TO BE HER. KAY IS UNABLE TO SEE THAT IF SHE TAKES HER MEDS MORNING DOSE WITH BREAKFAST, NOON DOSE WITH LUNCH, EVENING DOSE WITH DINNER, AND PM DOSE AT BEDTIME, SHE DOESNT HAVE TO WRITE IT ALL DOWN. SHES BEEN DOING THINGS THIS WAY FOR A LONG TIME - NOT SURE SHE CAN CHANGE AT THIS POINT. SN FOR DAILY VISITS TO GIVE 1 STRIP OF MEDS PER DAY, BECAUSE 2 STRIPS CAUSE PATIENT STRESS AND NON COMPLIANCE, OR CALLED NURSES AT ALL HOURS FOR CLARIFICATION. SN FOR DAILY VISITS TO ASSESS MOOD, COPING, SAFETY, COMPLIANCE, PREFILL AND MANAGE MEDICATIONS, POC.</paragraph> <paragraph>[Visit Date: 2024 by BRUCE SAHU RN]:</paragraph><paragraph>JUNE 24 SNV PATIENT WAS PLEASANT AND COOPERATIVE DURING ASSESSMENT. APPEARS ANXIOUS. FREQUENTLY LOOKING AT THE GROUND RATHER THAN MAKING EYE CONTACT WITH THIS NURSE. COMPLIANT WITH PRE-FILLED MEDICATION FROM PREVIOUS DAY. MEDICATIONS ARE PRE- FILLED THROUGH NEXT NURSING VISIT</paragraph> Encounters Start Date/Time End Date/Time Encounter Type Admission Type Attending [facility] Care [facility] Care Department Encounter ID Discharge Date Discharge Status Discharge Condition Discharge Reason Percent Goals Met 2025-05-04 00:00:00 2025-07-02 00:00:00 Outpatient RECERTIFIC HEIDI TONY [facility] [id number] 13.89
== END 2025-06-29 12:02 | disposition home or self-care (01) ==
PROVIDERS: Emergency Provider Emergency Medicine; PCP Internal Medicine
DX: R51.9 Headache, unspecified (principal); F07.81 Postconcussional syndrome; R42 Dizziness and giddiness
CPT/HCPCS: 99283

== ENCOUNTER 2025-07-04 15:13 | Emergency (ER) | payer MEDICARE, MEDICAID, SELFPAY ==
--- NOTE | ~2025-07-04 | CT_ITS ---
CLINICAL HISTORY: fall W HS, increased headache w nausea CT head without contrast Comparison: CT/SR - CT HEAD WITHOUT IV CONTRAST - 06/27/25 14:[address]/REG/MI/SR - CT HEAD WITHOUT IV CONTRAST - 05/16/24 13:[address]/REG/SR - CT HEAD WITHOUT IV CONTRAST - 04/13/24 11:[address]/REG/SR - CT HEAD/BRAIN WO IV CON - 10/31/23 13:49 EST Findings: No acute hemorrhage. No extra-axial fluid collection. No hydrocephalus, mass-effect or herniation. De León-white differentiation is maintained. There is patchy hypoattenuation of the periventricular and deep white matter, which is most likely the sequela of moderate chronic small vessel ischemic disease and is similar to the prior studies. No acute orbital pathology. No acute soft tissue abnormality. No fracture. The visualized paranasal sinuses are predominantly clear. Unchanged opacification of right posterior inferior mastoid air cells. The mastoid air cells are otherwise clear. Impression: No acute findings. This document has been electronically signed by: Trena Kim MD on 07/04/2025 18:19:07
[2025-07-04 15:20] VITALS: BP 117/56; BP 129/70; PULSE 82; PULSE 83; RESP 16; TEMP 36.9; O2SAT 98; O2SAT 99; BMI 25.0
--- OUTSIDE RECORDS SUMMARY | 2025-07-04 15:52 | XMS_ITS | Encounter Summary ---
Author Organization [employer] Address [address] [facility] [address] [place] [address] Care Team Providers Care Kaitara Taraka Name Role Phone Unavailable Primary Care Provider Unavailabl e Reason for Visit * Reason Onset Date Comments Extraction aftercare 05/11/2025 Encounter Details Date Type Department Care Team (Late st Contact Info) Description 05/11/2025 Telephone [facility] [address] [place] [address] Hardeep Gibson, DMD [address] [place] [address] Extraction aftercare Social History Tobacco Use Types [...] call. Sent to both clinical support and manager front documented in this encounter Plan of Treatment Not on file documented as of this encounter Visit Diagnoses Not on filedocumented in this encounter
--- OUTSIDE RECORDS SUMMARY | 2025-07-04 15:52 | XMS_ITS | Clinical Summary ---
Author Organization [facility] Address [address] [place] [address] Phone Care Team Providers Care Roller Skate Assembler Name Role Phone Lino Parker MD Primary Care Provider [phone] Allergies Active Allergy Reactions Criticality Noted Date [...] of both feet 11/15/2024 Dissociative identity disorder ([facility] V24, [facility] V28) 07/20/2018 Hyperlipidemia 07/20/2018 Hypothyroidism 07/20/2018 Mood disorder ([facility] V24) 07/20/2018 PTSD (post-traumatic stress disorder) 07/20/2018 Medical History Medical History Date Comments Other bipolar disorder ([facility] V24, [facility] V28) DX:Other bipolar disorder ([facility]) Post-traumatic stress disord er, unspecified DX:Post-traumatic stress dis order, unspecified 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[facility] V24, [facility] V28) DX:Dissociative identity dis order ([facility]) Mood disorder ([facility] V24) DX:M ood disorder ([facility]) No diagnosis on [place] DX:No di agnosis on [place] Social History Tobacco Use Types Packs/Day [...] Insurance MEDICARE [place]ICAID - [place] Care Teams Roller Skate Assembler Relationship Specialty Start Date End Date Lino Parker MD [address] [place] [address] [place] [address] PCP - General Internal Medicine 07/13/18
--- OUTSIDE RECORDS SUMMARY | 2025-07-04 15:52 | XMS_ITS | Patient Health Record ---
Author Organization [facility] Address [address] [place] [address] Care Team Providers Care Catering Staff Member Name Role Phone Keith (RETIRED) Lino NOBLE Primary Care Provider Unavailable Abelardo Sal Unavailable [phone] Allergies Allergen (clinical drug ingredient) Drug/Non Drug [...] A ctive Cogentin Unknown Drug Allergy Active Reason For Referral No Information [...] Problem Status W/U Status Risk Notes Problem 664699454 Encounter for screening for malignant neoplasm of colon (Z12.11) Active confirmed Problem 697175858 History of adenomatous polyp of colon (Z86.010) Active confirmed Problem 090749499 Irritable bowel syndrome with diarrhea (K58.0) Active confirmed Problem Screening for malignant neoplasm of rectum (548236003) Encounter for screening for malignant neoplasm of rectum (Z12.12) Active confirmed Problem 87734047 Preprocedural examination (Z01.818) Active confirmed Problem Gastroesophageal reflux (K21.9) Active confirmed Problem Diverticulosis of colon (179980407) Diverticulosis of colon (K57.30) Active confirmed Problem 337954841 Gastroesophageal reflux disease, unspecified whether esophagitis present [...] Start Date Coverage End Date MEDICAID OF [facility] [address] [place] [address] [id number] KAY CASIANO Self - patient is the insured Medical (General) History Medical History History ICD Code Screening colonoscopy 010--1.2cm sigmoid tubular adenoma, sigmoid diverticulosis, internal hemorrhoids PTSD, Disassociative identit y disorder, Depression, Bipolar disease--Dr. Adelina Shoemaker Hyperlipidemia Denies MS,DM,CVA,Lung disease,renal dise ase Hypothyroid in relation to thyroidectomy for thyroid cancer as below IBS--neg. celiac disease labs in 05/2015 Negative colonoscopy in 10/2016 Surgical History Surgery Date(Month/Year) Total thyroidectomy--cancer
--- OUTSIDE RECORDS SUMMARY | 2025-07-04 15:52 | XMS_ITS | Clinical Summary ---
Author Organization [facility] Address [address] [address] Phone Care Team Providers Care Cascara Bark Cutter Name Role Phone Lino Parker MD Primary Care Provider [phone] Allergies Active Allergy Reactions Criticality Noted Date [...] [place] & [facility] [place] [facility] [place] Care Teams Cascara Bark Cutter Relationship Specialty Start Date End Date Lino Parker MD [address] [place] [address] [place] [address] PCP - General Internal Medicine 10/24/23 Additional Source Comments The information contained in this document represents components of the legal health record. It is not the complete legal health record.[facility]
--- NOTE | 2025-07-04 15:56 | ED.HEATRA ---
HPI - Head Injury General Chief complaint: Head Injury Stated complaint: HEAD PRESSURE SINCE FALL LAST WEEK/CONSUSSION PER Time Seen by Provider: 07/04/25 15:54 Source: patient Mode of arrival: EMS Limitations: no limitations History of Present Illness ED Provider: Yuridia Preciado PA-C HPI Narrative: 65-year-old female with medical history of CKD stage IV, GERD, hypothyroidism, IBS, HDL, anxiety, depression, dissociated identity disorder, bipolar disorder, presents to the ED today due to 2 days of worsening headache. Patient was seen in the department 06/27 due to mechanical slip and fall with posterior head strike with CT head negative for intracranial hemorrhage. Patient presented again to ED on 06/29 for headache and diagnosed with postconcussive syndrome, without additional imaging of head brain, at that time she stated her headache had been steadily improving. Patient presents to the ED again today due to worsening headache, now accompanied with nausea. Patient reports she woke up yesterday morning with headache, and pressure in the back and top of her head that she states feels like tension. Patient is stating she is having difficulty swallowing pills, this was evaluated on her last visit on 06/29 where she was referred to GI but she has yet to call to make an appointment for follow up. Patient states she has follow up with her PCP on 07/27. Patient denies thinners, anti thrombolytics. Additionally patient states she started experiencing some substernal chest pain that started yesterday, pain is intermittent, and describes the pain as ?tension?. Denies shortness of breath, abdominal pain, vomiting, urinary symptoms, dark/tarry stool, diarrhea Related Data Home Medications ?Medication ?Instructions ?Recorded ?Confirmed clonazepam 0.25 mg disintegrating 0.25 mg PO TID PRN anxiety 05/16/24 05/16/24 tablet famotidine 20 mg tablet 20 mg PO BEDTIME Acid Reflux 05/16/24 05/19/24 lamotrigine 200 mg tablet 200 mg PO BEDTIME 05/16/24 05/16/24 lamotrigine 25 mg tablet 50 mg PO BID 05/16/24 05/19/24 omeprazole 20 mg capsule,delayed 20 mg PO DAILY 05/16/24 05/16/24 release ascorbic acid (vitamin C) 1,000 mg 1,000 mg PO DAILY 05/19/24 05/19/24 tablet (Vitamin C) calcium carbonate 600 mg PO DAILY 05/19/24 05/19/24 cholecalciferol (vitamin D3) 25 25 mcg PO DAILY 05/19/24 05/19/24 mcg (1,000 unit) capsule (Vitamin D3) coenzyme Q10 100 mg capsule 100 mg PO DAILY 05/19/24 05/19/24 (CoQ-10) [id number] 8 mg-folic 400 1 tab PO DAILY 05/19/24 05/19/24 mcg-K 50 mcg-lutein 300 mcg tablet (Centrum Silver Women) Previous Rx's ?Medication ?Instructions ?Recorded chlorpromazine 25 mg tablet 50 mg (2 x 25 mg) PO DAILY 30 days 12/02/23 #60 tabs chlorpromazine 25 mg tablet 75 mg (3 x 25 mg) PO BEDTIME 30 12/02/23 days #90 tabs levothyroxine 125 mcg tablet 125 mcg PO DAILY@0600 30 days #30 12/02/23 tabs simvastatin 40 mg tablet 40 mg PO BEDTIME 30 days #30 tabs 12/02/23 trazodone 50 mg tablet 50 mg PO BEDTIME PRN Insomnia 30 12/02/23 days #30 tabs trihexyphenidyl 2 mg tablet 2 mg PO QAM 30 days #30 tabs 12/02/23 ziprasidone HCl 20 mg capsule 20 mg PO BIDWM 30 days #60 caps 12/02/23 ziprasidone HCl 80 mg capsule 80 mg PO BIDWM 30 days #60 caps 12/02/23 lidocaine 5 % topical patch 1 patch topical DAILY #15 ea 06/27/25 (Lidoderm) ondansetron 4 mg disintegrating 4 mg PO Q8H PRN nausea and 06/29/25 tablet vomiting #20 tabs ondansetron 4 mg disintegrating 4 mg PO Q8H PRN nausea and 07/04/25 tablet vomiting #10 tabs Allergies Allergy/AdvReac Type Severity Reaction Status Date / Time Penicillins (PENICILLINS) Allergy Severe HIVES Verified 07/04/25 15:30 sulfamethoxazole (From Allergy Severe DIARRHEA Verified 07/04/25 15:30 BACTRIM) trimethoprim (From BACTRIM) Allergy Severe DIARRHEA Verified 07/04/25 15:30 aripiprazole (From ABILIFY) Allergy Intermediate ATAXIA Verified 07/04/25 15:30 aspirin (ASPIRIN) Allergy Intermediate STOMACH Verified 07/04/25 15:30 CRAMPS benztropine (From COGENTIN) Allergy Intermediate CONFUSION, Verified 07/04/25 15:30 memory loss bupropion (BUPROPION) Allergy Intermediate DIZZINESS Verified 07/04/25 15:30 erythromycin base Allergy Intermediate GI UPSET Verified 07/04/25 15:30 (ERYTHROMYCIN BASE) ibuprofen (From MOTRIN) Allergy Intermediate STOMACH Verified 07/04/25 15:30 CRAMPS olanzapine (From ZYPREXA) Allergy Intermediate TONGUE Verified 07/04/25 15:30 MOVEMENTS perphenazine (From TRILAFON) Allergy Intermediate ARM AND Verified 07/04/25 15:30 LEG MOVEMENTS, FALL risperidone (From RISPERDAL) Allergy Intermediate TONGUE Verified 07/04/25 15:30 MOVEMENT milk Allergy Drowsy Verified 07/04/25 15:30 egg AdvReac Stomach Verified 07/04/25 15:30 Upset From INDERAL Allergy Intermediate WHEEZING Uncoded 06/29/25 10:59 Review of Systems Review of Systems: CONST: Negative for fever, body aches and chills. HENT: Negative for neck pain/stiffness, headache, congestion, sore throat, swelling. POS headache EYES: Negative for discharge/pain or vision changes. RESP: Negative for cough/hemoptysis and shortness of breath. CV: Negative chest pain, difficulty breathing, palpitations. ABD: Negative pain, nausea, vomiting. POS nausea, vomiting : Negative increase frequency, dysuria, blood in urine or stool. MUSC: Negative for muscle aches, edema. SKIN: Negative rash, lesions/sores. NEURO: POS dizziness, weakness PMFSH Past Medical History Attestation statement: The following information was validated with the patient. Source: old records reviewed and nursing notes reviewed Medical History Routine medical exam CKD (chronic kidney disease), stage IV Bipolar disorder Neck pain Murmur GERD (gastroesophageal reflux disease) Hypothyroidism Irritable bowel syndrome (IBS) Hyperlipidemia Anxiety and depression Dissociative identity disorder Surgical History Hx of colonoscopy History of total thyroidectomy Social History Social History Household Members: None Household Members Other:: roommate Housing: Apartment Are you a primary in home caregiver to a significant other at home: No Do you presently have visiting nurse or other home services: Yes (pt has VNA for only one day prior to admission.) Unable to assess alcohol history related to: Unknown Alcohol intake: never Comment: aware of trip hazard Patient Tobacco Use Status: Former Tobacco user Tobacco use type: Cigarette Cigarette Packs Per Day: 1 Cigarettes Per Day: 20.0 Years Smoked: 20 Smoked in Last 30 Days: No e-Cigarette/Vaping Use: Never Used Second Hand Smoke Exposure: No Use of substances other than those prescribed or required for medical reasons: No Advance Directives: No Advance Directives Information Provided: Yes service: No Sexual orientation: Did not discuss Physical Exam Vital Signs: Vital Signs: Last Vital Signs Temp 98.4 F 07/04/25 15:20 Pulse 83 07/04/25 15:20 Resp 16 07/04/25 15:20 BP 117/56 L 07/04/25 15:20 Pulse Ox 98 07/04/25 15:20 O2 Del Method Room Air 07/04/25 15:20 BMI result Body Mass Index 25.0 GENERAL APPEARANCE: ?AxOx4, somewhat disheveled appearing, no acute distress. HEENT: ?NC, AT. MMM. EOMI, clear conjunctiva, oropharynx clear. NECK: ?Supple without lymphadenopathy.? No stiffness or restricted ROM. HEART:? Normal rate and regular rhythm, normal S1/S2, no m/r/g LUNGS:? CTAB, moving air well. No crackles or wheezes are heard. ABDOMEN: ?Soft, nontender, nondistended with normal bowel sounds heard. BACK: No CVAT, no obvious deformity. EXTREMITIES: ?Without cyanosis, clubbing or edema. NEUROLOGICAL: ?Grossly nonfocal. Alert and oriented, moving all 4 extremities. Observed to ambulate with a slow and mildly unsteady gait, patient stating she is dizzy while up on her feet and ambulating. Skin: ?Warm and dry without any rash. Course Reevaluation(s) Reevaluation #1: Cabrera Garay PA-C have accepted care of the patient at signed out pending CT of the brain and final disposition CT brain:Findings: No acute hemorrhage. No extra-axial fluid collection. No hydrocephalus, mass-effect or herniation. De León-white differentiation is maintained. There is patchy hypoattenuation of the periventricular and deep white matter, which is most likely the sequela of moderate chronic small vessel ischemic disease and is similar to the prior studies. No acute orbital pathology. No acute soft tissue abnormality. No fracture. The visualized paranasal sinuses are predominantly clear. Unchanged opacification of right posterior inferior mastoid air cells. The mastoid air cells are otherwise clear. Impression: No acute findings. Medications Administered Discontinued Medications Generic Name Dose Route Start Last Admin Trade Name Freq PRN Reason Stop Dose Admin Acetaminophen 975 mg 07/04/25 16:43 07/04/25 17:07 Acetaminophen 325 Mg Tablet PO 07/04/25 16:44 975 mg ONCE ONE Administration Lactated Ringer's 1,000 mls @ 999 mls/hr 07/04/25 16:41 07/04/25 17:04 Lr IV 07/04/25 17:41 999 mls/hr .Q1H1M ONE Administration Medical Decision Making Medical Decision Making MDM Narrative: 65-year-old female with medical history of CKD stage IV, GERD, hypothyroidism, IBS, HDL, anxiety, depression, dissociative identity disorder, bipolar disorder, presents to the ED today due to 2 days of worsening headache. Patient was seen in the department 06/27 due to mechanical slip and fall with posterior head strike with CT head negative for intracranial hemorrhage. Patient presented again to ED on 06/29 for headache and diagnosed with postconcussive syndrome, without additional imaging of head brain, at that time she stated her headache had been steadily improving. Patient presents to the ED again today due to worsening headache, now accompanied with nausea and vomiting. Patient reports she woke up yesterday morning with headache, and pressure in the back and top of her head that she states feels like tension. Patient is stating she is having difficulty swallowing pills, this was evaluated on her last visit on 06/29 where she was referred to GI but she has yet to call to make an appointment for follow up. Patient states she has follow up with her PCP on 07/27. Patient denies thinners, anti thrombolytics. Additionally patient states she started experiencing some substernal chest pain that started yesterday, pain is intermittent, and describes the pain as ?tension?. VSS, nontoxic appearing, in no acute distress, BP 117/56, pulse rate 83 beats per minute, respiratory rate 16, afebrile with oral temperature of 98.4?, O2 saturation 98% on room air. Physical exam benign, without focal neurological deficits, EOMI, pupils reactive consensually, to accommodating light, without facial drooping, without speech slurring. Head atraumatic, no lesions, no rash, no temporal sensitivity, no hematoma of scalp. Cardiac exam reveals regular rate and rhythm, without murmurs/rubs/gallops, lungs clear to auscultation bilaterally. Abdomen soft, nondistended, nontender. Plan for labs, UA, EKG, CT head due to 2 days worsening headache accompanied with nausea and vomiting status post fall 06/27, Differential Diagnosis Differential Diagnoses: The differential diagnosis associated with the presentation includes ACS PE ICH Electrolyte abnormality Postconcussive syndrome Admission/Observation Consideration of admission/observation: Escalation of care including admission/observation considered Lab Data 07/04/25 17:42 07/04/25 17:42 Labs: Lab Results 07/04/25 07/04/25 Range/Units 17:42 17:58 WBC 6.0 (4.8-10.8) X10*3/uL RBC 3.90 L (4.20-5.50) X10*6/uL Hgb 12.1 (12.0-16.0) g/dl Hct 34.6 L (37.0-47.0) % MCV 88.7 (80.0-98.0) fL MCH 31.0 (27.0-33.0) pg MCHC 35.0 (31.0-35.0) g/dl RDW 11.9 (11.0-16.0) % Plt Count 197 (160-400) X10*3/uL MPV 8.3 L (9.4-12.3) fL Immature Gran % (Auto) 0.2 (0.0-0.4) % Neut % (Auto) 65.9 (45-73) % Lymph % (Auto) 25.8 (20-40) % [place] % (Auto) 7.8 (2-11) % Eos % (Auto) 0.0 (0-4) % Baso % (Auto) 0.3 (0-2) % Lymph # (Auto) 1.6 (1.2-4.9) X10*3/uL [place] # (Auto) 0.5 (0.1-1.2) X10*3/uL Eos # (Auto) 0.0 (0.0-0.4) X10*3/uL Baso # (Auto) 0.0 (0.0-0.2) X10*3/uL Abs Immat Gran (auto) 0.01 (0.00-0.03) X10*3/uL Absolute Neuts (auto) 4.0 (2.0-8.3) x10*3/uL Absolute Nucleated RBC 0.000 (0.0-0.012) X10*3/uL Nucleated RBC % (auto) 0.0 (0.0-0.2) /100WBC Sodium 145 (135-145) mmol/L Potassium 4.1 (3.3-5.1) mmol/L Chloride 107 (96-108) mmol/L Carbon Dioxide 30 H (22-29) mmol/L Anion Gap 12 (12-20) BUN 27 H (9-16) mg/dL Creatinine 1.68 H (0.5-1.4) mg/dL Estim Creat Clear Calc 29.2 Estimated GFR 30 Random Glucose 81 (60-115) mg/dL Calcium 9.2 D (8.4-10.2) mg/dL Magnesium 2.1 (1.6-2.6) mg/dL Total Bilirubin 0.4 (0.0-1.0) mg/dL AST 31 (5-31) U/L ALT 28 (0-31) U/L Alkaline Phosphatase 40 (39-117) U/L Troponin I High Sens < 2.7 (<3.5-17.0) ng/L Total Protein 6.8 (6.5-8.0) g/dL Albumin 4.5 (3.5-5.0) g/dL Urine Color Yellow Urine Appearance Clear Urine pH 7.0 (5.0-9.0) Ur Specific [place] <= 1.005 (1.005-1.025) Urine Protein Negative (Neg-Trace) mg/dL Urine Glucose (UA) Negative (Negative) mg/dL Urine Ketones Negative (Negative) mg/dL Urine Blood Negative (Negative) Urine Nitrite Negative (Negative) Ur Leukocyte Esterase Trace H (Negative) Urine RBC 0-2 (0-2) /HPF Urine WBC 0-5 (0-5) /HPF Ur Squamous Epith Cells 0-2 (0-2) /HPF Urine Bacteria None Seen (None Seen) Hyaline Casts 0-2 (0-2) /LPF Independent Interpretation I performed an independent interpretation of an: EKG Interpretation: I independently interpreted the EKG which shows normal sinus rhythm without ST elevation/depression Vent. Rate : 75 BPM Atrial Rate : 75 BPM P-R Int : 192 ms QRS Dur : 82 ms QT Int : 416 ms P-R-T Axes : 75 -12 57 degrees QTcB Int : 464 ms Normal sinus rhythm Normal ECG When compared with ECG of 27-Oct-2024 04:51, No significant change was found Discharge Plan Discharge Clinical Impression: Postconcussion syndrome Patient Disposition: Home, Self-Care Instructions: Post Concussion Syndrome (ED) Additional Instructions: The CT scan of your brain was once again normal. You have postconcussive syndrome. See home care instructions. It describes this condition very well. It will take time for your symptoms to resolve. Follow up with your primary care provider. You can use [id number] Tylenol 1000 mg taken every 8 hours. Uses Zofran as needed for nausea. Prescriptions: New ondansetron 4 mg tablet,disintegrating 4 mg PO Q8H PRN (Reason: nausea and vomiting) Qty: 10 0RF No Action trazodone 50 mg Tablet 50 mg PO BEDTIME PRN (Reason: Insomnia) 30 Days Qty: 30 0RF ziprasidone HCl 80 mg capsule 80 mg PO BIDWM 30 Days Qty: 60 0RF simvastatin 40 mg tablet 40 mg PO BEDTIME 30 Days Qty: 30 0RF ziprasidone HCl 20 mg Capsule 20 mg PO BIDWM 30 Days Qty: 60 0RF Rx Instructions: give with food (meal/snack) chlorpromazine 25 mg Tablet 50 mg PO DAILY 30 Days Qty: 60 0RF chlorpromazine 25 mg Tablet 75 mg PO BEDTIME 30 Days Qty: 90 0RF levothyroxine 125 mcg Tablet 125 mcg PO DAILY@0600 30 Days Qty: 30 0RF trihexyphenidyl 2 mg tablet 2 mg PO QAM 30 Days Qty: 30 0RF lamotrigine 25 mg tablet 50 mg PO BID famotidine 20 mg tablet 20 mg PO BEDTIME omeprazole 20 mg capsule,delayed release(DR/EC) 20 mg PO DAILY lamotrigine 200 mg tablet 200 mg PO BEDTIME clonazepam 0.25 mg tablet,disintegrating 0.25 mg PO TID PRN (Reason: anxiety) ascorbic acid (vitamin C) [Vitamin C] 1,000 mg Tablet 1,000 mg PO DAILY calcium carbonate 600 mg calcium (1,500 mg) Tablet 600 mg PO DAILY cholecalciferol (vitamin D3) [Vitamin D3] 25 mcg (1,000 unit) Capsule 25 mcg PO DAILY coenzyme Q10 [CoQ-10] 100 mg Capsule 100 mg PO DAILY Centrum Silver Women 8 mg iron-400 mcg-50 mcg Tablet 1 tab PO DAILY lidocaine [Lidoderm] 5 % adhesive patch,medicated 1 patch topical DAILY Qty: 15 0RF Rx Instructions: leave on most painful area for up to 12 hrs ondansetron 4 mg tablet,disintegrating 4 mg PO Q8H PRN (Reason: nausea and vomiting) Qty: 20 0RF Print Language: Italian
--- NOTE | 2025-07-04 16:42 | ECG_ITS ---
Test Reason : WEAKNESS Blood Pressure : */* mmHG Vent. Rate : 75 BPM Atrial Rate : 75 BPM P-R Int : 192 ms QRS Dur : 82 ms QT Int : 416 ms P-R-T Axes : 75 -12 57 degrees QTcB Int : 464 ms Normal sinus rhythm Normal ECG When compared with ECG of 27-Oct-2024 04:51, No significant change was found Referred By: Ozzy Shi Electronically Signed By: BRODY PHILLIPS
[2025-07-04] MEDS: Lactated Ringers 1,000 ML 999 ML IV (17:04)
[2025-07-04 17:47] LABS: MANUAL DIFF FLAG NO
[2025-07-04 17:49] LABS: Hematocrit 34.6 % (37.0-47.0); Hemoglobin 12.1 g/dl (12.0-16.0); Imm Gran Abs Auto 0.01 X10*3/uL (0.00-0.03); Imm Gran Pct Auto 0.2 % (0.0-0.4); Lymphocytes Absolute Auto 1.6 X10*3/uL (1.2-4.9); Mean Corpuscular HGB Conc 35.0 g/dl (31.0-35.0); Mean Corpuscular Hemoglobin 31.0 pg (27.0-33.0); Mean Corpuscular Volume 88.7 fL (80.0-98.0); NRBC Abs Auto 0.000 X10*3/uL (0.0-0.012); NRBC Pct Auto 0.0 /100WBC (0.0-0.2); Platelet Count 197 X10*3/uL (160-400); Red Blood Count 3.90 X10*6/uL (4.20-5.50); White Blood Count 6.0 X10*3/uL (4.8-10.8)
[2025-07-04 18:04] LABS: Alanine Aminotransferase 28 U/L (0-31); Albumin Level 4.5 g/dL (3.5-5.0); Alkaline Phosphatase 40 U/L (39-117); Anion Gap 12 (12-20); Aspartate Amino Transferase 31 U/L (5-31); Blood Urea Nitrogen 27 mg/dL (9-16); Calcium 9.2 mg/dL (8.4-10.2); Carbon Dioxide 30 mmol/L (22-29); Chloride 107 mmol/L (96-108); Creatinine Clr Calc Pharmacy 29.2; Estimated Glomerular Filt Rate 30; Magnesium 2.1 mg/dL (1.6-2.6); Potassium 4.1 mmol/L (3.3-5.1); Sodium 145 mmol/L (135-145); Total Protein 6.8 g/dL (6.5-8.0)
[2025-07-04 18:05] LABS: Appearance Urine Clear; Glucose Urine UA Negative (Negative); PH 7.0 (5.0-9.0); Specific Gravity - Urine <= 1.005 (1.005-1.025); UMIC TRIGGER UACC YES
[2025-07-04 18:13] LABS: Troponin-I High Sensitivity < 2.7 ng/L (<3.5-17.0)
[2025-07-04 19:17] VITALS: BP 117/56; PULSE 83; RESP 16; TEMP 36.9; O2SAT 98
== END 2025-07-04 19:17 | disposition home or self-care (01) ==
PROVIDERS: Emergency Provider Emergency Medicine Emergency Medical Services; PCP Internal Medicine
DX: R51.9 Headache, unspecified (principal); F07.81 Postconcussional syndrome; N18.4 Chronic kidney disease, stage 4 (severe); K21.9 Gastro-esophageal reflux disease without esophagitis; E78.5 Hyperlipidemia, unspecified; F44.9 Dissociative and conversion disorder, unspecified; F31.9 Bipolar disorder, unspecified
CPT/HCPCS: 36415; 70450; 80053; 81001; 83735; 84484; 85025; 93005; 96360; 96361; 99284; 99285; J7120

== ENCOUNTER → 2025-07-04 16:42 | Outpatient (BNV) | payer MEDICARE, MEDICAID, SELFPAY | PROVIDERS: Emergency Provider Emergency Medicine Emergency Medical Services; PCP Internal Medicine; Visit Provider Internal Medicine | DX: R53.1 Weakness (principal) | CPT/HCPCS: 93010 ==

== ENCOUNTER → 2025-07-04 16:42 | Outpatient (BNV) | payer MEDICARE, MEDICAID, SELFPAY | PROVIDERS: Emergency Provider Emergency Medicine Emergency Medical Services; PCP Internal Medicine; Visit Provider Radiology Diagnostic Radiology | DX: S09.90XA Unspecified injury of head, initial encounter (principal); R51.9 Headache, unspecified; R11.0 Nausea; W01.10XA Fall on same level from slipping, tripping and stumbling with subsequent striking against unspecified object, initial encounter | CPT/HCPCS: 70450 ==

== ENCOUNTER 2025-10-04 14:46 | Emergency (ER) | payer MEDICARE, MEDICAID, SELFPAY ==
[2025-10-04] VITALS (7 sets, daily range): BP systolic 123–133; BP diastolic 68–80; PULSE 73–81; RESP 15–18; TEMP 36.6–37.1; O2SAT 95–100; BMI 25.8
--- NOTE | ~2025-10-04 | XR_ITS ---
CLINICAL HISTORY: fall --- Additional Notes or Special Instructions: collared @ 1553 -MF 3 views sacrum and coccyx Comparison: CR/SR - XR SACRUM COCCYX 2 OR MORE VIEWS - 05/16/24 14:05 EDT Findings No acute fractures. Favor normal irregularity of the coccyx. No focal soft tissue abnormality. Large colonic stool burden. IMPRESSION: No acute fracture. This document has been electronically signed by: Leonila Lam MD on 10/04/2025 18:50:57
--- NOTE | ~2025-10-04 | CT_ITS ---
EXAMINATION: CT CERVICAL SPINE WITHOUT CONTRAST CLINICAL INFORMATION: Fall, head strike COMPARISON: 06/19/2025, 05/16/2024. TECHNIQUE: Spiral CT imaging of the cervical spine performed in axial plane without contrast. Multiplanar reformatted images were constructed from the axial data set. This CT examination was performed using dose optimization techniques as appropriate, variously including the following: *Automated exposure control *Adjustment of mA and/or kV according to patient size (this includes techniques or standardized protocols for targeted exams where dose is matched to indication/reason for exam; i.e. extremities or head) *Use of iterative reconstruction technique FINDINGS: CORONAL ALIGNMENT: -Normal. SAGITTAL ALIGNMENT: -Straightening of the normal lordosis, nonspecific. -There is no evidence of traumatic subluxation. -Anatomical alignment. C1-C2 AND CRANIOCERVICAL JUNCTION: -Intact and normally aligned. There are moderate degenerative changes in the anterior atlantoaxial joint. VERTEBRAL BODIES AND FACETS: -No definite fracture, compression deformity, or suspicious bone lesion. -There is normal facet alignment bilaterally. No subluxations. No posterior element fractures. DISCS: -Moderate disc degeneration present at C5-6 and C6-7. There is otherwise only mild disc degeneration. CENTRAL CANAL: -No evidence of high-grade central canal narrowing or large disc herniation allowing for modality limitations. PREVERTEBRAL AND PARAVERTEBRAL SOFT TISSUES: -There is no prevertebral or paravertebral soft tissue swelling, edema, or abnormal fluid collection. -There has been a thyroidectomy. -There is no mass or abnormal lymphadenopathy within the neck. LUNG APICES: -Clear bilaterally. No pneumothorax. CT/CT cervical spine wo IV con IMPRESSION: 1. No CT evidence of acute cervical spine fracture or injury. 2. Mild to moderate degenerative cervical spondylosis most significant C5-6 and C6-7. 3. Thyroidectomy. Electronically signed by: Adelso Ponce MD 10/04/2025 04:15 PM [facility]
--- NOTE | ~2025-10-04 | CT_ITS ---
EXAMINATION: CT HEAD WITHOUT CONTRAST CLINICAL INFORMATION: Fall, head strike. COMPARISON: Numerous priors, most recently 07/04/2025. TECHNIQUE: Contiguous axial imaging was performed from the skull base to vertex without intravenous administration of contrast. This CT examination was performed using dose optimization techniques as appropriate, variously including the following: *Automated exposure control *Adjustment of mA and/or kV according to patient size (this includes techniques or standardized protocols for targeted exams where dose is matched to indication/reason for exam; i.e. extremities or head) *Use of iterative reconstruction technique FINDINGS: There is no evidence of intracranial hemorrhage or extra-axial fluid collection. There is no mass effect, or edema. No CT evidence of acute territorial infarct. Ventricles, sulci, and cisterns are normal in size and configuration for patient age. No hydrocephalus. No midline shift. Negative hyperdense MCA sign. Negative insular ribbon sign. Patchy periventricular and deep white matter hypoattenuation is consistent with mild to moderate small vessel ischemic changes. Partial empty sella. Globes and orbital contents image normally. No extracranial soft tissue abnormalities. The paranasal sinuses, mastoid air cells, and tympanic cavities are normally aerated. No suspicious bony abnormalities. There are no acute fractures evident. CT/CT head/brain wo IV con IMPRESSION: No acute intracranial abnormality. No fracture evident. Electronically signed by: Adelso Ponce MD 10/04/2025 04:20 PM [facility]
--- NOTE | 2025-10-04 15:58 | PC.NURSE ---
desribes tripping/fallling at home. has modified c spine precautions in place. tender on c spin and lateral neck. no neuro dficits noted.
--- NOTE | 2025-10-04 16:59 | ED.FALL ---
HPI - Fall General Chief Complaint: Fall Stated Complaint: FALL, +HS Time Seen by Provider: 10/04/25 15:18 Source: patient and EMS Mode of arrival: EMS Limitations: no limitations History of Present Illness ED Provider: POLINA CUEVA PA-C HPI Narrative: 65 year old female with pmhx significant for CKD, hypothyroid, IBS, GERD, anxiety, depression, bipolar disorder, dissociative identity disorder presents to the ED today via ambulance for evaluation s/p mechanical fall occurring PC TECH in ED. Patient reports taking her prescribed Klonopin around 1100 this morning. Shortly after, began to feel dizzy and groggy. At around 1215, she bumped into a trash can in her kitchen, tripped and fell backwards. Reports posterior head strike on her baseboard, landing on her back. The fall was unwitnessed however her aid was home and shortly entered into the kitchen and found patient on the floor. She was only down for about 30 seconds, was able to stand and ambulate herself. No LOC. No thinners. No obvious lacerations/bleeding. Denies any symptoms preceding fall. At presenting, endorsing 10 low back/tail bone pain described as an aching sensation. Related Data Home Medications ?Medication ?Instructions ?Recorded ?Confirmed clonazepam 0.25 mg disintegrating 0.25 mg PO TID PRN anxiety 05/16/24 05/16/24 tablet famotidine 20 mg tablet 20 mg PO BEDTIME Acid Reflux 05/16/24 05/19/24 lamotrigine 200 mg tablet 200 mg PO BEDTIME 05/16/24 05/16/24 lamotrigine 25 mg tablet 50 mg PO BID 05/16/24 05/19/24 omeprazole 20 mg capsule,delayed 20 mg PO DAILY 05/16/24 05/16/24 release ascorbic acid (vitamin C) 1,000 mg 1,000 mg PO DAILY 05/19/24 05/19/24 tablet (Vitamin C) calcium carbonate 600 mg PO DAILY 05/19/24 05/19/24 cholecalciferol (vitamin D3) 25 25 mcg PO DAILY 05/19/24 05/19/24 mcg (1,000 unit) capsule (Vitamin D3) coenzyme Q10 100 mg capsule 100 mg PO DAILY 05/19/24 05/19/24 (CoQ-10) iukxpbno-vqic-vrvg 8 mg-folic 400 1 tab PO DAILY 05/19/24 05/19/24 mcg-K 50 mcg-lutein 300 mcg tablet (Centrum Silver Women) Previous Rx's ?Medication ?Instructions ?Recorded chlorpromazine 25 mg tablet 50 mg (2 x 25 mg) PO DAILY 30 days 12/02/23 #60 tabs chlorpromazine 25 mg tablet 75 mg (3 x 25 mg) PO BEDTIME 30 12/02/23 days #90 tabs levothyroxine 125 mcg tablet 125 mcg PO DAILY@0600 30 days #30 12/02/23 tabs simvastatin 40 mg tablet 40 mg PO BEDTIME 30 days #30 tabs 12/02/23 trazodone 50 mg tablet 50 mg PO BEDTIME PRN Insomnia 30 12/02/23 days #30 tabs trihexyphenidyl 2 mg tablet 2 mg PO QAM 30 days #30 tabs 12/02/23 ziprasidone HCl 20 mg capsule 20 mg PO BIDWM 30 days #60 caps 12/02/23 ziprasidone HCl 80 mg capsule 80 mg PO BIDWM 30 days #60 caps 12/02/23 lidocaine 5 % topical patch 1 patch topical DAILY #15 ea 06/27/25 (Lidoderm) ondansetron 4 mg disintegrating 4 mg PO Q8H PRN nausea and 06/29/25 tablet vomiting #20 tabs ondansetron 4 mg disintegrating 4 mg PO Q8H PRN nausea and 07/04/25 tablet vomiting #10 tabs Allergies Allergy/AdvReac Type Severity Reaction Status Date / Time Penicillins (PENICILLINS) Allergy Severe HIVES Verified 10/04/25 15:15 sulfamethoxazole (From Allergy Severe DIARRHEA Verified 10/04/25 15:15 BACTRIM) trimethoprim (From BACTRIM) Allergy Severe DIARRHEA Verified 10/04/25 15:15 aripiprazole (From ABILIFY) Allergy Intermediate ATAXIA Verified 10/04/25 15:15 aspirin (ASPIRIN) Allergy Intermediate STOMACH Verified 10/04/25 15:15 CRAMPS benztropine (From COGENTIN) Allergy Intermediate CONFUSION, Verified 10/04/25 15:15 memory loss bupropion (BUPROPION) Allergy Intermediate DIZZINESS Verified 10/04/25 15:15 erythromycin base Allergy Intermediate GI UPSET Verified 10/04/25 15:15 (ERYTHROMYCIN BASE) ibuprofen (From MOTRIN) Allergy Intermediate STOMACH Verified 10/04/25 15:15 CRAMPS olanzapine (From ZYPREXA) Allergy Intermediate TONGUE Verified 10/04/25 15:15 MOVEMENTS perphenazine (From TRILAFON) Allergy Intermediate ARM AND Verified 10/04/25 15:15 LEG MOVEMENTS, FALL risperidone (From RISPERDAL) Allergy Intermediate TONGUE Verified 10/04/25 15:15 MOVEMENT milk Allergy Drowsy Verified 10/04/25 15:15 egg AdvReac Stomach Verified 10/04/25 15:15 Upset From INDERAL Allergy Intermediate WHEEZING Uncoded 10/04/25 15:15 Review of Systems Review of Systems: Yes all other systems are reviewed and are negative [facility] Past Medical History Attestation statement: The following information was validated with the patient. Source: old records reviewed and nursing notes reviewed Medical History Routine medical exam CKD (chronic kidney disease), stage IV Bipolar disorder Neck pain Murmur GERD (gastroesophageal reflux disease) Hypothyroidism Irritable bowel syndrome (IBS) Hyperlipidemia Anxiety and depression Dissociative identity disorder Surgical History Hx of colonoscopy History of total thyroidectomy Social History Social History Household Members: None Household Members Other:: roommate Housing: Apartment Are you a primary live in caregiver to a significant other at home: No Do you presently have visiting nurse or other home services: Yes (pt has VNA for only one day prior to admission.) Alcohol intake: never Comment: aware of trip hazard Patient Tobacco Use Status: Former Tobacco user Tobacco use type: Cigarette Cigarette Packs Per Day: 1 Cigarettes Per Day: 20.0 Years Smoked: 20 e-Cigarette/Vaping Use: Never Used Second Hand Smoke Exposure: No service: No Sexual orientation: Did not discuss Physical Exam Vital Signs: Vital Signs: Last Vital Signs Temp 98.5 F 10/04/25 19:40 Pulse 74 10/04/25 19:40 Resp 15 10/04/25 19:40 BP 124/78 10/04/25 19:40 Pulse Ox 96 10/04/25 19:40 O2 Del Method Room Air 10/04/25 19:40 BMI result Body Mass Index 25.8 vital signs stable General: Well appearing, in no acute distress. Skin: Warm, dry, intact. No rashes or lesions. Head: Normocephalic, atraumatic. No raccoon eyes or delarosa sign. No palpable skull fracture or hematoma. EENT: Hearing is intact b/l. Conjunctiva clear. PERRLA. EOM intact. Moist mucous membranes. Neck: No midline cervical spinous tenderness. Full ROM intact. Cardiac: Chest wall symmetric. RRR Lungs: Normal respiratory effort without accessory muscle use. CTA bilaterally. Abdomen: Soft, non-tender, non-distended. No rebound tenderness or guarding. Positive BS x4 Back: +ttp along midline sacrum, no palpable step off. Ext: Upper and lower extremities atraumatic, without tenderness, deformity, swelling or erythema Neuro: AOx3. Normal speech. NIH 0. Strength 5/5 intact throughout. No saddle anesthesia. Sensation intact to light touch. Ambulating with steady gait. Course Course Course Narrative: 1806 -- ct head/c spine unremarkable. xr pending. medicated with Tylenol with good effect. patient is stable at the end of my shift. sign out given to mariel diego pending xrays and disposition. Reevaluation(s) Reevaluation #1: X-ray of the sacrum and coccyx unremarkable for traumatic injury. Patient is stable for discharge Time: 18:59 Medications Administered Discontinued Medications Generic Name Dose Route Start Last Admin Trade Name Freq PRN Reason Stop Dose Admin Acetaminophen 650 mg 10/04/25 15:59 10/04/25 16:29 Acetaminophen 325 Mg Tablet PO 10/04/25 16:00 650 mg ONCE STA Administration Medical Decision Making Medical Decision Making [facility] Narrative: 65 year old female with pmhx significant for CKD, hypothyroid, IBS, GERD, anxiety, depression, bipolar disorder, dissociative identity disorder presents to the ED today via ambulance for evaluation s/p mechanical fall occurring PC TECH in ED. vital signs stable. she is well appearing, in NAD. Differential diagnosis includes fracture, msk sprain/strain, contusion, concussion, ICH, skull fracture Unlikely cord compression, cauda equina, guillain barre, epidural abscess. Plan for imaging, pain control, re-evaluation. Differential Diagnosis Differential Diagnoses: The differential diagnosis associated with the presentation includes as above. Admission/Observation not indicated. Independent Interpretation I performed an independent interpretation of an: Plain X-Ray and CT Scan Interpretation: CT head without bleed/skull fracture ct cervical spine without fracture xr sacrum w/o fracture Radiology Impression Discussion of test interpretation with radiology: I have reviewed the radiologist's reading. Radiologist Impression: Procedure(s): CT head/brain wo IV con Accession Number(s): [id number] cc: FRANCIS STODDARD MD; Polina Cueva~ Report Number: [id number]: Total DLP = 0.00 mGy-cm Reason for Exam: fall + head strike EXAMINATION: CT HEAD WITHOUT CONTRAST CLINICAL INFORMATION: Fall, head strike. COMPARISON: Numerous priors, most recently 07/04/2025. TECHNIQUE: Contiguous axial imaging was performed from the skull base to vertex without intravenous administration of contrast. This CT examination was performed using dose optimization techniques as appropriate, variously including the following: *Automated exposure control *Adjustment of mA and/or kV according to patient size (this includes techniques or standardized protocols for targeted exams where dose is matched to indication/reason for exam; i.e. extremities or head) *Use of iterative reconstruction technique FINDINGS: There is no evidence of intracranial hemorrhage or extra-axial fluid collection. There is no mass effect, or edema. No CT evidence of acute territorial infarct. Ventricles, sulci, and cisterns are normal in size and configuration for patient age. No hydrocephalus. No midline shift. Negative hyperdense MCA sign. Negative insular ribbon sign. Patchy periventricular and deep white matter hypoattenuation is consistent with mild to moderate small vessel ischemic changes. Partial empty sella. Globes and orbital contents image normally. No extracranial soft tissue abnormalities. The paranasal sinuses, mastoid air cells, and tympanic cavities are normally aerated. No suspicious bony abnormalities. There are no acute fractures evident. CT/CT head/brain wo IV con IMPRESSION: No acute intracranial abnormality. No fracture evident. Electronically signed by: Adelso Ponce MD 10/04/2025 04:20 PM [facility] Procedure(s): CT cervical spine wo IV con Accession Number(s): [id number] cc: FRANCIS STODDARD MD; Polina Cueva~ Report Number: [id number]: Total DLP = 1015.02 mGy-cm Reason for Exam: fall + head strike EXAMINATION: CT CERVICAL SPINE WITHOUT CONTRAST CLINICAL INFORMATION: Fall, head strike COMPARISON: 06/19/2025, 05/16/2024. TECHNIQUE: Spiral CT imaging of the cervical spine performed in axial plane without contrast. Multiplanar reformatted images were constructed from the axial data set. This CT examination was performed using dose optimization techniques as appropriate, variously including the following: *Automated exposure control *Adjustment of mA and/or kV according to patient size (this includes techniques or standardized protocols for targeted exams where dose is matched to indication/reason for exam; i.e. extremities or head) *Use of iterative reconstruction technique FINDINGS: CORONAL ALIGNMENT: -Normal. SAGITTAL ALIGNMENT: -Straightening of the normal lordosis, nonspecific. -There is no evidence of traumatic subluxation. -Anatomical alignment. C1-C2 AND CRANIOCERVICAL JUNCTION: -Intact and normally aligned. There are moderate degenerative changes in the anterior atlantoaxial joint. VERTEBRAL BODIES AND FACETS: -No definite fracture, compression deformity, or suspicious bone lesion. -There is normal facet alignment bilaterally. No subluxations. No posterior element fractures. DISCS: -Moderate disc degeneration present at C5-6 and C6-7. There is otherwise only mild disc degeneration. CENTRAL CANAL: -No evidence of high-grade central canal narrowing or large disc herniation allowing for modality limitations. PREVERTEBRAL AND PARAVERTEBRAL SOFT TISSUES: -There is no prevertebral or paravertebral soft tissue swelling, edema, or abnormal fluid collection. -There has been a thyroidectomy. -There is no mass or abnormal lymphadenopathy within the neck. LUNG APICES: -Clear bilaterally. No pneumothorax. CT/CT cervical spine wo IV con IMPRESSION: 1. No CT evidence of acute cervical spine fracture or injury. 2. Mild to moderate degenerative cervical spondylosis most significant C5-6 and C6-7. 3. Thyroidectomy. Electronically signed by: Adelso Ponce MD 10/04/2025 04:15 PM [facility] Findings No acute fractures. Favor normal irregularity of the coccyx. No focal soft tissue abnormality. Large colonic stool burden. IMPRESSION: No acute fracture. This document has been electronically signed by: Leonila Lam MD on 10/04/2025 18:50:57 Procedure(s): XR sacrum coccyx min 2V Accession Number(s): [id number] cc: FRANCIS STODDARD MD; Polina Cueva~ Reason for Exam: fall CLINICAL HISTORY: fall --- Additional Notes or Special Instructions: collared @ 1553 -MF 3 views sacrum and coccyx Comparison: CR/SR - XR SACRUM COCCYX 2 OR MORE VIEWS - 05/16/24 14:05 EDT Findings No acute fractures. Favor normal irregularity of the coccyx. No focal soft tissue abnormality. Large colonic stool burden. IMPRESSION: No acute fracture. This document has been electronically signed by: Leonila Lam MD on 10/04/2025 18:50:57 Independent Historian Clinical information obtained from an independent historian. History obtained from or confirmed by: EMS External Record Review External record reviewed: Inpatient record Prescription Management I considered prescription management with: Pain Medication Social Determinants Patient?s care significantly limited by Social Determinants of Health including: Other Social Determinant of Health Critical Care Time Critical Care Time Critical Care Time: No Discharge Plan Discharge Clinical Impression: Fall Patient Disposition: Home, Self-Care Instructions: Fall Prevention (ED) Additional Instructions: You were evaluated in the ED today following a fall. The CT scan of your head and neck do not demonstrate any intracranial bleed or fracture The x-ray of your tailbone does not show any fractures You may take Tylenol and Motrin at home as needed for pain. Return with any new or worsening symptoms. In the case of an emergency call 911. Prescriptions: No Action trazodone 50 mg Tablet 50 mg PO BEDTIME PRN (Reason: Insomnia) 30 Days Qty: 30 0RF ziprasidone HCl 80 mg capsule 80 mg PO BIDWM 30 Days Qty: 60 0RF simvastatin 40 mg tablet 40 mg PO BEDTIME 30 Days Qty: 30 0RF ziprasidone HCl 20 mg Capsule 20 mg PO BIDWM 30 Days Qty: 60 0RF Rx Instructions: give with food (meal/snack) chlorpromazine 25 mg Tablet 50 mg PO DAILY 30 Days Qty: 60 0RF chlorpromazine 25 mg Tablet 75 mg PO BEDTIME 30 Days Qty: 90 0RF levothyroxine 125 mcg Tablet 125 mcg PO DAILY@0600 30 Days Qty: 30 0RF trihexyphenidyl 2 mg tablet 2 mg PO QAM 30 Days Qty: 30 0RF lamotrigine 25 mg tablet 50 mg PO BID famotidine 20 mg tablet 20 mg PO BEDTIME omeprazole 20 mg capsule,delayed release(DR/EC) 20 mg PO DAILY lamotrigine 200 mg tablet 200 mg PO BEDTIME clonazepam 0.25 mg tablet,disintegrating 0.25 mg PO TID PRN (Reason: anxiety) ascorbic acid (vitamin C) [Vitamin C] 1,000 mg Tablet 1,000 mg PO DAILY calcium carbonate 600 mg calcium (1,500 mg) Tablet 600 mg PO DAILY cholecalciferol (vitamin D3) [Vitamin D3] 25 mcg (1,000 unit) Capsule 25 mcg PO DAILY coenzyme Q10 [CoQ-10] 100 mg Capsule 100 mg PO DAILY Centrum Silver Women 8 mg iron-400 mcg-50 mcg Tablet 1 tab PO DAILY lidocaine [Lidoderm] 5 % adhesive patch,medicated 1 patch topical DAILY Qty: 15 0RF Rx Instructions: leave on most painful area for up to 12 hrs ondansetron 4 mg tablet,disintegrating 4 mg PO Q8H PRN (Reason: nausea and vomiting) Qty: 10 0RF ondansetron 4 mg tablet,disintegrating 4 mg PO Q8H PRN (Reason: nausea and vomiting) Qty: 20 0RF Referrals: Francis Stoddard MD [Primary Care Provider, Internal Medicine] Interventions: ED Discharge Assessment Last Done: 10/04/25 19:40 Discharge Date/Time: 10/04/25 19:46 Print Language: [place]uran
--- OUTSIDE RECORDS SUMMARY | 2025-10-04 18:16 | XMS_ITS | Data Portability ---
Author Organization [place] [facility] Address [address] [place] [address] Care Team Providers Care Pictures Editor Name Role Phone JENNIFER BETTS Primary Care [...] were answered prior to DH team departure. [email or web address] Not available 08/07/2022 18:48:34 Plan of Treatment Reminders Order Date Submit Date Provider Last Modified By Organization Details Last Modified Time Details Appointments None recorded. Lab unlisted lab - covid-19 (novel coronaviru s) PCR 2021 022 IRENE [facility] (Centralized Electronic Ordering - All Locations), Patient Can Go To The Location Of Their Choice, [address] 16:05:23 Referral None recorded. Procedures None recorded. Surgeries None recorded. Imaging None recorded. Medication Orders None recorded. Patient TargetsNo targets recorded. Patient Instructions Encounter Date Encounter Id Patient Instructions Last Modified By Organization Details Last Modified Time 08/07/2022 [id number] sore throat: car e instructions 3 Not available 08/07/2022 17:27:52 Please seek [...] in your condition between 8am-10pm, please call [facility] at [phone] to help navigate your care. [email or web address] Not available 08/07/2022 17:07:41 Reason for [...] ng. Resul t repor audra to the [facility]. To preve nt error s in diagn [...] perfo rmed by real time PCR utili [employer] SARS- CoV-2 test. Not Available [facility] (Centralized Electronic Ordering - All Locations) Patient Can Go To The Location Of Their Choice, [id number] 08/08/2022 16:05:23 08/07/20 22 08/08/2022 COVID -19 (NOVE L CORON AVIRU S) PCR covid-19 PCR specimen source NASAL Not Available [facility] (Centralized Electronic Ordering - All Locations) Patient Can Go To The Location Of Their Choice, [id number] 08/08/2022 16:05:23 Result Notes None recorded. Procedures Surgical History Date Name Laterality Status Provider Name and Address Organization Details Recorded Time thyroidectomy completed Sara Flores NP [address] [place], [address], [place] [facility] 08/07/2022 17:04:06 Imaging Results None recorded. Procedure Notes None recorded. Medical Equipment None Reported. Allergies Allergen ID Allergen Name Allergen Category Reaction Reaction Severity Criticality Documentation Date Start Date Code Code System Note Provider Name and Address Organization Details Recorded Time [id number] Abilify medicatio n Not available Not available Not available 08/07/2022 64647 3 RxNorm Sara Flores NP [address] [place], [address], [place] [facility] 16:57:18 520400 Bactrim medicatio n Not available Not available Not available 08/07/2022 26748 9 RxNorm Sara Flores NP [address], [place], [address], [place] [facility] 2 16:57:26 658751 aspirin medicatio n Not available Not available Not available 08/07/2022 1191 RxNorm Sara Flores , CAPTAIN/AIRLINE PILOT [address], [place], [address], [place] [facility] 2 16:57:50 738821 bupropion Not available Not available Not available Not available 08/07/2022 20246 RxNorm Sara Flores , CAPTAIN[employer]AIRLINE [employer] [address], [place], [address], [place] [facility] 2 16:58:24 996236 Cogentin medicatio n Not available Not available Not available 08/07/2022 63965 2 RxNorm Sara Flores , CAPTAIN[employer]AIRLINE [employer] [address], [place], [address], [place] [facility] 16:58:34 060048 Inderal medicatio n Not available Not available Not available 08/07/2022 25035 0 RxNorm Sara Flores , [employer]TAIN[employer] [address], [place], [address], [place] [facility] 2 16:58:42 336110 Motrin medicatio n Not available Not available Not available 08/07/2022 35449 8 RxNorm Sara Flores , CAPTAIN[employer]LINE [employer] [address], [place], [address], [place] [facility] 2 16:58:50 653387 Product containin g penicilli n (product) medicatio n Not available Not available Not available 08/07/2022 22405 8001 SNOMED Sara Flores , CAPTAIN[employer]AIRLINE P[employer] [address], [place], [address], [place] [facility] 16:59:03 801618 risperido ne medicatio n Not available Not available Not available 08/07/2022 65077 RxNorm Sara Flores , [employer]TAIN[employer] [address], [place], [address], [place] [facility] 16:59:16 869309 Zyprexa medicatio n Not available Not available Not available 08/07/2022 76069 3 RxNorm Sara Flores , [employer] [address], [place], [place], [address], [place] [facility] 16:59:27 651403 Trilafon medicatio n Not available Not available Not available 08/07/2022 04183 0 RxNorm Sara Flores , [employer]TAIN[employer] [address], [place], [address], [place] [facility] 2 16:59:46 816898 erythromy juan medicatio n Not available Not available Not available 08/07/2022 4053 RxNorm Sara Flores , [employer]TAIN[employer] [address], [place], [place], [address], [place] [facility] [...] AND REMOVE EVERY 7TH DAY WITH NAIL HUNGARIAN REMOVER 08/07 completed Not Available Not Available [...] Smoker May Mark, BRIANA [address], [place], [address], [place] [facility] 08/07/2022 17:05:03 Is Blood Transfusion Acceptable In An Emergency? Yes [email or web address] Information not available 08/07/2022 What Is Your Code Status? Full Code [email or web address] Information not available 08/07/2022 When Did You Quit Smoking? 16+yearssince lastcigarette [email or web address] Information not available 08/07/2022 Within The Past 12 Months, Has It Happened That The Food You Bought Just Didn't Last And You Didn't Have Money To Get More. No [email or web address] Information not available 08/07/2022 Within The Past 12 Months, Have You Worried That Your Food Would Run Out Before You Got Money To Buy More. No [email or web address] Information not available 08/07/2022 Fall Risk: Do You Feel Unsteady When Standing Or Walking? No [email or web address] Information not available 08/07/2022 We Know That How And When People Interact With Friends And Family Can Be Very Different From Person To Person. How Often Do You Have The Opportunity To See Or Talk To People That You Care About And Feel Close To? (Ex: Talking To Friends On The Phone Or Visiting Friends Or Family Or Going To Zoroastrianism Or Club Meetings) Choose Not To Answer This Question [email or web address] Information not available 08/07/2022 Excessive Alcohol Or Drug Use No [email or web address] Information not available 08/07/2022 Does This Patient Have A PCP? Yes [email or web address] Information not available 08/07/2022 Has The Patient Seen Their PCP In The Past 6 Months? Yes [email or web address] Information not available 08/07/2022 Is This Patient In Hospice? No [email or web address] Information not available 08/07/2022 We Know From Many Of Our Patients That Covering All Of Their Costs Can Be Difficult At Times. This Can Cause Stress And Impact Health. In The Past Year, Have You Been Unable To Get Any Of The Following When It Was Really Needed? No [email or web address] Information not available 08/07/2022 What Is Your Housing Situation Today? I Have Housing [email or web address] Information not available 08/07/2022 Do You Have An Out Of Hospital DNR? No [email or web address] Information not available 08/07/2022 At What Age Did You Start Smoking Tobacco? 11 [email or web address] Information not available 08/07/2022 Sex: Unknown Functional Status Question Answer Note LastModified by Organizat ion Details LastModified Time Do you use any illicit or recreational drugs? No [email or web address] Information not available 08/07/2022 What is your level of alcohol consumption? None [email or web address] Information not available 08/07/2022 Mental Status None recorded. Family History Nothing Reported. Medical History Condition Response Coronary Artery Disease N Parkinson's Disease N COPD N Depression N Hypothyroidism Y A-fib N Diabetes N CHF N Cancer Y Dementia N Stroke N Asthma N High Cholesterol Y Rheumatoid Arthritis N Pulmonary Embolism N Hypertension N Osteoporosis N Kidney Disease N Gynecological HistoryNo gynecological history recorded. Obstetrics History GPAL:G 0 P 0 0 0 0 Past Encounters Encounter ID Performer Location Encounter Start Date Encounter Closed Date Diagnosis/Indication Diagnosis SNOMED-CT Code Diagnosis ICD10 Code Diagnosis IMO Codes Diagnosis Note [id number] May BRIANA [facility] [address] [place] [address] 08/07/2022 16:53:06 08/08/2022 15:38:35 Exposure to communicable disease 684499397 Z20.822 Loss of taste 12757851 R 43.2 Pain in throat 491075511 R07.0 Health Concerns Section Related Observation LastModified by Organization Detai ls LastModified Time None Recorded Concern Status LastModified by Organization Details LastModified Time None Recorded Advance Directives Directive None Recorded Payers Insurance Date Sequence Insurance Name Policy Number Policy Gutierrez Covered Member ID Gutierrez Member ID Guarantor Name 08/07/2022 1 *SELF PAY* Maryse Shaikh [id number] Maryse Shaikh 08/08/2022 1 [place] [facility] Maryse Shaikh [id number] Maryse Shaikh Notes Date Note Type Note Provider Name and Address Organization Details Recorded Time 08/07/2022 text/html General HPI Template - DHReported by Patient 62 YO F patient establishing care with . She complains of sore throat, chills, loss of taste, subjective fever, and nausea that began yesterday. Admits to symptoms improving today. She denies taking any medication to assist with discomfort. Sara Flores NP [address], [place], [address], [place] [facility] 08/07/2022 21:04:37 OBGyn Episode No OBEpisode recorded.
--- OUTSIDE RECORDS SUMMARY | 2025-10-04 18:17 | XMS_ITS | Patient Health Record ---
Author Organization [facility] Address [address] [place] [address] Care Team Providers Care Cut Roll Machine Operator Name Role Phone Keith (RETIRED) Lino NOBLE Primary Care Provider Unavailable Abelardo Sal Unavailable [phone] Allergies Allergen (clinical drug ingredient) Drug/Non Drug Allergy documented on EMR Reaction Allergy Type Onset Date Status erythromycin Erythromycin Unknown Drug Allergy A ctive [...] Inderal LA Unknown Drug Allergy Acti ve Reason For Referral No Information Medications Medication SIG (Take, Route, Frequency, Duration) Notes Start Date End Date Status ProAir HFA Not-Takin g Omeprazole 20 MG TAKE ONE CAPSULE BY MOUTH EVERY DAY Oral; Duration: 30 Active Vitamin D3 25 MCG (1000 UT) 1 capsule Orally Once a day; Duration: 30 day(s) Active Multivitamin Active CoQ10 100 [...] Problem Status W/U Status Risk Notes Problem Screening for malignant neoplasm of colon (539173138) Encounter for screening for malignant neoplasm of colon (Z12.11) Active confirmed Problem History of adenomatous polyp of colon (397587648) History of adenomatous polyp of colon (Z86.010) Active confirmed Problem Irritable bowel syndrome with diarrhea (974352771) Irritable bowel syndrome with diarrhea (K58.0) Active confirmed Problem Screening for malignant neoplasm of rectum (825190375) Encounter for screening for malignant neoplasm of rectum (Z12.12) Active confirmed Problem Preprocedural examination (921340367093900) Preprocedural examination (Z01.818) Active confirmed Problem Esophageal reflux finding (822247617) Gastroesophageal reflux (K21.9) Active confirmed Problem Diverticulosis of colon (613920344) Diverticulosis of colon (K57.30) Active confirmed Problem Gastroesophageal reflux disease (627822521) Gastroesophageal reflux disease, unspecified whether esophagitis present [...] Start Date Coverage End Date [facility] [address] [place] [address] [id number] KAY CASIANO Self - patient is the insured Medical (General) History Medical History History ICD Code Screening colonoscopy 010--1.2cm sigmoid tubular adenoma, sigmoid diverticulosis, internal hemorrhoids PTSD, Disassociative identit y disorder, Depression, Bipolar disease--Dr. Adelina Shoemaker Hyperlipidemia Denies [place],DM,CVA,Lung disease,renal dise ase Hypothyroid in relation to thyroidectomy for thyroid cancer as below IBS--neg. celiac disease labs in 05/2015 Negative colonoscopy in 10/2016 Surgical History Surgery Date(Month/Year) Total thyroidectomy--cancer
--- OUTSIDE RECORDS SUMMARY | 2025-10-04 18:17 | XMS_ITS | Clinical Summary ---
Author Organization [address] [facility] Address [address] [place] [address] Phone Care Team Providers Care Outside Laborer Name Role Phone Lino Parker MD Primary Care Provider [phone] Allergies Active Allergy Reactions Criticality Noted Date [...] of both feet 11/15/2024 Dissociative identity disorder ([facility] V24, [facility] V28) 07/20/2018 Hyperlipidemia 07/20/2018 Hypothyroidism 07/20/2018 Mood disorder ([facility] V24) 07/20/2018 PTSD (post-traumatic stress disorder) 07/20/2018 Medical History Medical History Date Comments Other bipolar disorder ([facility] V24, [facility] V28) DX:Other bipolar disorder ([facility]) Post-traumatic stress disord er, unspecified DX:Post-traumatic stress dis order, unspecified 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[facility] V24, [facility] V28) DX:Dissociative identity dis order ([facility]) Mood disorder ([facility] V24) DX:M ood disorder ([facility]) No diagnosis on [place] DX:No di agnosis on [place] Social History Tobacco Use Types Packs/Day [...] Last Done Comments Breast Cancer Screening 1960 Colorectal Cancer Screening: Colonoscopy 1960 Pneumococcal Vaccine: 50+ Years (1 of 1 - PCV) 2008 Cholesterol Screening (Lipid Panel) 11/09/2022 Hepatitis C Screening 11/09/2022 Medicare Annual Wellness Visit 11/09/2022 Osteoporosis Screening (Bone Density Screening) 11/09/2022 Social Influencers of Health Screening 11/09/2022 Falls Risk Assessment 2023 Depression Screening 12/01/2024 COVID-19 Vaccine ( - season) 2025 01/27/2024, 10/16/2022, 11/29/2021, Additional history exists Influenza [...] Insurance MEDICARE MEDICAID - [place] Care Teams Outside Laborer Relationship Specialty Start Date End Date Lino Parker MD [address] [place] [address] [place] [address] PCP - General Internal Medicine 07/13/18
--- OUTSIDE RECORDS SUMMARY | 2025-10-04 18:17 | XMS_ITS | Clinical Summary ---
Author Organization [facility], Address [address] [facility] [address] [place] [address] Phone Care Team Providers Care Advice Line Rn Name Role Phone Francis Nye MD Primary Care Provider [phone] Allergies Active Allergy Reactions Criticality Noted Date Comments Aripiprazole Other (see comments) 07/20/2018 Aspirin Other (see comments) 07/20/2018 Stomach problems Benztropine Other (see comments) 07/20/2018 Memory loss, nervousness, dizziness, dry mouth, confusion, unclear thinking Bupropion Hives,Other (see comments) 07/20/2018 Ringing in ears, dizziness Cetirizine 05/11/2025 Erythromycin Hives,Other (see comments) 07/20/2018 Abdominal pain Ibuprofen Other (see comments) 07/20/2018 Stomach problems Olanzapine Other (see comments) 07/20/2018 Tongue movements Penicillins Hives,Other (see comments) High 07/20/2018 Perphenazine Other (see comments) 07/20/2018 Leg movements , falls Propranolol Other (see comments) 07/20/2018 wheezing Risperidone Other (see comments) 07/20/2018 Tongue movements Sulfamethoxazole-Trimet hoprim Diarrhea,Hives,Other (see comments) 07/20/2018 Medications chlorproMAZINE (THORAZINE) 25 MG tablet TAKE 2 TABLETS BY MOUTH ONCE DAILY AND 3 TABLETS AT BEDTIME DIRECTED Active clonazePAM (KlonoPIN) 0.25 MG dispersible tablet DISSOLVE ONE TABLET BY MOUTH THREE TIMES A DAY NEEDED FOR ANXIETY Active lamoTRIgine (LaMICtal) 100 MG tablet Take 200 mg by mouth every night Active levothyroxine (SYNTHROID, LEVOTHROID) 112 MCG tablet Take 112 mcg by mouth 5 Active trihexyphenidyl (ARTANE) 2 MG tablet Take 2 mg by mouth every morning Active famotidine (PEPCID) 40 MG tablet TAKE ONE TABLET BY MOUTH EVERY DAY NEEDED FOR REFLUX Active Active Problems Problem Noted Date Diagnosed Date Stage 3b chronic kidney disease 09/27/2025 [place] adverse reaction <Subsequent> 09/27/2025 [place] adverse reaction <Sequela> 09/27/2025 Encounters Date Type Department Care Team Description 09/27/2025 3:15 PM EDT Office Visit [facility] [address] [place] [address] Giorgi Escalante MD Stage 3b chronic kidney disease (HCC) (Primary Dx); [place] adverse reaction <Sequela> 09/21/2025 Documentation Only [facility], [address] [place] [address] Hyun Mas MA from Last 3 Months Immunizations Immunization Administration Dates Next Due Moderna SARS-COV-2 11/29/2021,04/21/2021, 021 Shingrix 02/17/2024,07/25/2023 Tdap 05/26/2022 Social History Tobacco Use Types Packs/Day Years Used Date Smoking Tobacco: Never Assessed Comments Unknown Sex and Gender Information Value Date Recorded Sex Assigned at Not on file Legal Sex Female 9:57 AM EDT Gender Identity Not on file Sexual Orientation Not on file Plan of Treatment Health Maintenance Due Date Last Done Comments Breast Cancer Screening 1960 Pneumococcal Vaccine: 50+ Ye ars (1 of 2 - PCV) 1977 Colorectal Cancer Screening: Annual FOBT 2007 Colorectal Cancer Screening: Colonoscopy 2007 Colorectal Cancer Screening: Sigmoidoscopy 2007 Influenza Vaccine (#1) 2025 Hepatitis B Vaccine Aged Out No longe r eligible based on patient's age to complete this topic Insurance Medicare Medicaid [place] Care Teams Advice Line Rn Relationship Specialty Start Date End Date Francis Nye MD [facility] [place] PCP - General Internal Medicine 09/21/25
--- OUTSIDE RECORDS SUMMARY | 2025-10-04 18:17 | XMS_ITS | Encounter Summary ---
Author Organization [employer] Address [address] [place] [address] Care Team Providers Care Toppiece Chopper Name Role Phone Unavailable Primary Care Provider Unavailabl e Reason for Visit * Reason Onset Date Comments Extraction aftercare 05/11/2025 Encounter Details Date Type Department Care Team (Late st Contact Info) Description 05/11/2025 Telephone [facility] [address] [place] [address] Hardeep Gibson, DMD [address] [place] [address] Extraction aftercare Social History Tobacco Use Types [...] call. Sent to both clinical support and desk clerk documented in this encounter Plan of Treatment Not on file documented as of this encounter Visit Diagnoses Not on filedocumented in this encounter
--- OUTSIDE RECORDS SUMMARY | 2025-10-04 18:17 | XMS_ITS | Clinical Summary ---
Author Organization [facility] Address [address] [address] Phone Care Team Providers Care Ac/Dc Rewinder Name Role Phone Lino Parker MD Primary Care Provider [phone] Allergies Active Allergy Reactions Criticality Noted Date [...] 2008 OSTEOPOROSIS SCREENING INITI AL (ONE-TIME) 2023 INFLUENZA VACCINE (#1) 2025 COVID-19 VACCINE (1 - 2024-2 6 season) 2025 RSV VACCINE (1 - 1-dose 75+ series) [...] file Insurance MEDICARE PART A & B [facility] PART A & B Member Subscriber Plan / Payer (Ef fective 2023-Present) Name:ErikpricilaMaryse gonzalez Member ID:[id number] Relation to Subscriber:Self Name:Maryse Shaikh Subscriber ID:[id number] Payer ID:[id number] Group ID:Not on file Type:Medicare Address: [employer] [address] [place] A & [place] B [facility] Care Teams Ac/Dc Rewinder Relationship Specialty Start Date End Date Lino Parker MD [address] [place] [address] [place] [address] PCP - General Internal Medicine 10/24/23 Additional Source Comments The information contained in this document represents components of the legal health record. It is not the complete legal health record.[facility]
--- OUTSIDE RECORDS SUMMARY | 2025-10-04 18:17 | XMS_ITS | Encounter Summary ---
Author Organization [facility] Address [address] [place] [address] Phone Care Team Providers Care Parts Room Assistant Name Role Phone Francis Nye MD Primary Care Provider [phone] Encounter Details Date Type Department Care Team (Late st Contact Info) Description 09/21/2025 Documentation Only [facility], [address] [place] [address] [place], [place] [address] [place] [address] Social History Tobacco Use Types Packs/Day Years Used Date Smoking Tobacco: Never Assessed Comments Unknown Sex and Gender Information Value Date Recorded Sex Assigned at Not on file Legal Sex Female 9:57 AM EDT Gender Identity Not on file Sexual Orientation Not on file documented as of this encounter Plan of Treatment Not on file documented as of this encounter Visit Diagnoses Not on filedocumented in this encounter Care Teams Parts Room Assistant Relationship Specialty Start Date End Date Francis Nye MD [facility] [place] PCP - General Internal Medicine 09/21/25 documented as of this encounter
--- OUTSIDE RECORDS SUMMARY | 2025-10-04 18:17 | XMS_ITS | Clinical Summary ---
Author Organization [facility] Address [address] [place] [address] Care Team Providers Care Solar Sales Rep Name Role Phone Lino Parker MD Primary Care Provider [phone] Allergies Active Allergy Reactions Criticality Noted Date [...] Advance Directives For more information, please contact: [phone] Latest Code Status on File Code Status Date Activated Date Inactivated Comments Full Code 04/15/2024 2:24 PM 04/17/2024 1:26 AM This code status was ascertained in the following way: discussion with patient . Care Teams Solar Sales Rep Relationship Specialty Start Date End Date Lino Parker MD [address] [place] [address] [place] [address] PCP - General Internal Medicine 04/15/24
--- OUTSIDE RECORDS SUMMARY | 2025-10-04 18:17 | XMS_ITS | Clinical Summary ---
Author Organization [employer] Address [address] [facility] [address] [place] [address] Care Team Providers Care Director Of Distribution Name Role Phone Unavailable Primary Care Provider Unavailabl e Allergies Active Allergy Reactions Criticality Noted Date Comments Aripiprazole Unknown 07/20/2018 Aspirin Unknown 07/20/2018 Stomach problems Benztropine Unknown 07/20/2018 Memory loss, nervousness, dizziness, dry mouth, confusion, unclear thinking Bupropion Hives,Unknown 07/20/2018 Ringing in ears, dizziness Cetirizine 05/11/2025 Erythromycin Hives,Unknown 07/20/2018 Abdominal pain Ibuprofen Unknown,Other 07/20/2018 Stomach problems Olanzapine Unknown 07/20/2018 Tongue movements Penicillins Unknown 05/11/2025 Perphenazine Unknown 07/20/2018 Leg movements , falls Propranolol Other,Unknown 07/20/2018 wheezing Risperidone Unknown 07/20/2018 Tongue movements Sulfamethoxazole-Trimet hoprim Diarrhea,Hives,Unkno wn 07/20/2018 Medications multivitamin with minerals (Centrum) 9-200 mg-mcg tablet split tablet Take by mouth daily. Active ziprasidone (Geodon) 20 MG capsule Take 20 mg by mouth 2 times daily. Active cholecalciferol (Vitamin D3) 25 MCG (1000 UT) tablet Take 25 mcg by mouth Once per day. Active ascorbic acid (Vitamin C) 1000 MG tablet Take 1,000 mg by mouth Once per day. Active coenzyme Q-10 100 MG capsule in the morning. Active lamoTRIgine (LaMICtal) 100 MG tablet Take 2 tablets by mouth at bedtime. Active levothyroxine (Tirosint) 125 MCG capsule TAKE ONE CAPSULE BY MOUTH EVERY DAY 1/2 HOUR BEFORE BREAKFAST AND OTHER MEDS. Active omeprazole (PriLOSEC) [address] capsule Take 20 mg by mouth 2 times daily. Active simvastatin (Zocor) 40 MG tablet Take 40 mg by mouth Once per day. Active traZODone (Desyrel) 50 MG tablet take one tablet by mouth daily at bedtime as needed Active Social History Tobacco Use Types Packs/Day Years Used Date Smoking Tobacco: Never Assessed Comments Unknown Sex and Gender Information Value Date Recorded Sex Assigned at Female 02/28/2025 11:56 AM EDT Legal Sex Female 11:51 AM EDT Gender Identity Female 02/28/2025 11:56 AM EDT Sexual Orientation Choose not to disclose 2024 11:56 AM EDT Plan of Treatment Health Maintenance Due Date Last Done Comments CT Colonography 1958 Colonoscopy 1958 Colorectal Cancer Screening 1958 Dental Oral Exam 1958 Dental Prophylaxis 1958 Dental X-Ray: Bitewings 1958 Dental X-Ray: Full Mouth 1958 Depression Screening 1958 FIT DNA/Cologuard 1958 FIT 1958 FOBT 1958 SDOH Screening 1958 Sigmoidoscopy 1958 Alcohol/Substance Use Screening 1970 Tobacco Screening 1970 Hepatitis C Screening 1976 Mammogram 1998 Pneumococcal Vaccine: 50+ Years (1 of 1 - PCV) 2008 COVID-19 Vaccine ( - season) 2025 01/27/2024, 10/16/2022, 11/29/2021, Additional history exists Influenza Vaccine (#1) 2025 , 09/30/2023, 12/27/2022, Additional history exists DTaP/Tdap/Td Vaccines (2 - Td or Tdap) 05/26/2032 05/26/2022 RSV Patients and Patients Aged 60 years or older (1 - 1-dose 75+ series) 2033 Zoster [...] patient's age to complete this topic Meningococcal Vaccine Aged Out No nayeli walter eligible based on patient's age to complete this topic RSV under 20 months Aged Out No longe r eligible based on patient's age to complete this topic Rotavirus Vaccines Aged Out No longer eligible based on patient's age to complete this topic Insurance [place]
--- OUTSIDE RECORDS SUMMARY | 2025-10-04 18:17 | XMS_ITS | Encounter Summary ---
Author Organization [employer] Address [address] [facility] [address] [place] [address] Care Team Providers Care House Fellow Name Role Phone Unavailable Primary Care Provider Unavailabl e Reason for Visit * Reason Onset Date Comments scheduling emergency/evaluation appt/OS 02/29/20 25 Encounter Details Date Type Department Care Team (Late st Contact Info) Description 02/28/2025 Telephone [facility] [address] [place] [address] Marcie Estevez DMD scheduling emergency/evaluation appt/OS Social History Tobacco Use Types Packs/Day Years [...] * Telephone Encounter - Nayely Palacio - 02/28/2025 12:00 PM EDT Ok to schedule patient for emergency appt per Yudelka for future due to transportation issue. Referralshould be on file for patient for Oral Surgery. Patient is currently on resident schedule with possibility of seeing Oral Surgery if needed documented in this encounter Plan of Treatment Not on file documented as of this encounter Visit Diagnoses Not on filedocumented in this encounter
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
--- OUTSIDE RECORDS SUMMARY | 2025-10-29 19:00 | XMS_ITS | Clinical Summary ---
Author Organization Unknown Care Team Providers Care Technical Stenographer Name Role Phone ALPESH NOBLE, JENNIFER Unavailable Unavailable ROM PT, SANDRA Unavailable Unavailable LUIS HERMAN, HEIDI Unavailable Unavailable ARELY FELDERW, JANA Unavailable Unavailable Payers Payer Name Policy Type Policy Number Effective Date Expira tion Date [place] [id number] ON DEMAND MEDICARE - [facility] BILLING - ABN [id number] Problems Condition Name Condition Details Condition Category [...] 2022-12 00:00: 00 12-07 23:59 :00 No [id number] 1 capsule DAILY 1 capsule DAILY (route: oral) Med Classific ation: Gastroint estinal Therapy Agents chlorpromaz ine 25 mg tablet 2022-12 2- 00:00: 00 12-07 23:59 :00 No [id number] 1 tablet EVERY AM 1 tablet EVERY AM (route: oral) Med Classific ation: Central Nervous System Agents clonazepam 0.25 mg disintegrat ing tablet 2022-12 00:00: 00 12-07 23:59 :00 No [id number] 1 tablet 3 TIMES DAILY 1 tablet 3 TIMES DAILY (route: oral) Med Classific ation: Central Nervous System Agents haloperidol 2 mg tablet 2022-12 00:00: 00 11-11 23:59 :00 No [id number] Per instruc tions AT BEDTIME Per instructio ns AT BEDTIME (route: oral) Med Classific ation: Central Nervous System Agents trazodone 50 mg tablet 2022-12 00:00: 00 12-08 23:59 :00 No [id number] 1 tablet AT BEDTIME MAY REPEAT ONE TIME NEEDED 1 tablet AT BEDTIME MAY REPEAT ONE TIME NEEDED (route: oral) Med Classific ation: Central Nervous System Agents ziprasidone 20 mg capsule 2022-12 00:00: 00 12-07 23:59 :00 No [id number] 1 capsule TWICE A DAY 1 capsule TWICE A DAY (route: oral) Med Classific ation: Central Nervous System Agents lamotrigine 100 mg tablet 2022-12 00:00: 00 11-11 23:59 :00 No [id number] Per instruc tions AT BEDTIME Per instructio ns AT BEDTIME (route: oral) Med Classific ation: Central Nervous System Agents lamotrigine 25 mg tablet 2022-12 00:00: 00 12-08 23:59 :00 No [id number] 12 tablet EVERY MORNING & 1 AT 7 PM 12 tablet EVERY MORNING & 1 AT 7 PM (route: oral) Med Classific ation: Central Nervous System Agents levothyroxi ne 125 mcg tablet 2022-12 00:00: 00 12-07 23:59 :00 No [id number] 1 tablet EVERY DAY 1 tablet EVERY DAY (route: oral) Med Classific ation: Endocrine simvastatin 40 mg tablet 2022-12 00:00: 00 12-08 23:59 :00 No [id number] 1 tablet AT BEDTIME DIRECTED 1 tablet AT BEDTIME DIRECTED (route: oral) Med Classific ation: Cardiovas cular Therapy Agents trihexyphen idyl 2 mg tablet 2022-12 00:00: 00 12-07 23:59 :00 No [id number] 1 tablet EVERY 1 tablet EVERY (route: oral) Med Classific ation: Central Nervous System Agents ziprasidone 80 mg capsule 2022-12 00:00: 00 12-07 23:59 :00 No [id number] 1 capsule TWICE A DAY 1 capsule TWICE A DAY (route: oral) Med Classific ation: Central Nervous System Agents calcium carbonate 250 mg-vitamin D3 3.125 mcg (125 unit) tablet 12-08 00:00: 00 01-31 23:59 :00 No [id number] 2 tablet NOON 2 tablet NOON (route: oral) Med Classific ation: Electroly te Balance-N utritiona l Products Centrum Silver Women 8 mg iron-400 mcg-50 mcg tablet 12-08 00:00: 00 09-24 23:59 :00 No [id number] 1 tablet NOON 1 tablet NOON (route: oral) Med Classific ation: Electroly te Balance-N utritiona l Products chlorpromaz ine 25 mg tablet 12-08 00:00: 00 02-17 23:59 :00 No [id number] 2-3 tablet 2 TIMES DAILY 2-3 tablet 2 TIMES DAILY (route: oral) Med Classific ation: Central Nervous System Agents clonazepam 0.5 mg disintegrat ing tablet 12-08 00:00: 00 12-08 23:59 :00 No [id number] 0.5 tablet 2 TIMES DAILY 0.5 tablet 2 TIMES DAILY (route: oral) Med Classific ation: Central Nervous System Agents CoQ-10 100 mg capsule 12-08 00:00: 00 09-24 23:59 :00 No [id number] 1 capsule NOON 1 capsule NOON (route: oral) Med Classific ation: Alternati ve Therapy lamotrigine 25 mg tablet 12-08 00:00: 00 23:59 :00 No [id number] 2 tablet BEDTIME 2 tablet BEDTIME (route: oral) Med Classific ation: Central Nervous System Agents levothyroxi ne 125 mcg tablet 12-08 00:00: 00 02-17 23:59 :00 No [id number] 1 tablet EVERY AM 1 tablet EVERY AM (route: oral) Med Classific ation: Endocrine omeprazole 20 mg capsule,del ayed release 12-08 00:00: 00 02-27 23:59 :00 No [id number] 1 capsule NOON 1 capsule NOON (route: oral) Med Classific ation: Gastroint estinal Therapy Agents simvastatin 40 mg tablet 12-08 00:00: 00 09-24 23:59 :00 No [id number] 1 tablet BEDTIME 1 tablet BEDTIME (route: oral) Med Classific ation: Cardiovas cular Therapy Agents trazodone 50 mg tablet 12-08 00:00: 00 09-24 23:59 :00 No [id number] 1 tablet BEDTIME 1 tablet BEDTIME (route: oral) Med Classific ation: Central Nervous System Agents trihexyphen idyl 2 mg tablet 12-08 00:00: 00 02-17 23:59 :00 No [id number] 1 tablet 2 TIMES DAILY 1 tablet 2 TIMES DAILY (route: oral) Med Classific ation: Central Nervous System Agents ziprasidone 20 mg capsule 12-08 00:00: 00 12-08 23:59 :00 No [id number] 1 capsule 2 TIMES DAILY 1 capsule 2 TIMES DAILY (route: oral) Med Classific ation: Central Nervous System Agents ziprasidone 80 mg capsule 12-08 00:00: 00 02-17 23:59 :00 No [id number] 1 capsule 2 TIMES DAILY 1 capsule 2 TIMES DAILY (route: oral) Med Classific ation: Central Nervous System Agents clonazepam 0.5 mg disintegrat ing tablet 1-08 00:00: 00 23:59 :00 No [id number] 0.5 tablet 3 TIMES DAILY 0.5 tablet 3 TIMES DAILY (route: oral) Med Classific ation: Central Nervous System Agents lamotrigine 100 mg tablet 1-08 00:00: 00 02-17 23:59 :00 No [id number] 2 tablet BEDTIME 2 tablet BEDTIME (route: oral) Med Classific ation: Central Nervous System Agents ziprasidone 20 mg capsule -08 00:00: 00 02-17 23:59 :00 No [id number] 1 capsule 2 TIMES DAILY 1 capsule 2 TIMES DAILY (route: oral) Med Classific ation: Central Nervous System Agents clonazepam 0.25 mg disintegrat ing tablet 2-14 00:00: 00 09-24 23:59 :00 No [id number] 1 tablet 3 TIMES DAILY 1 tablet 3 TIMES DAILY (route: oral) Med Classific ation: Central Nervous System Agents Vitamin C 1,000 mg tablet 2-14 00:00: 00 09-24 23:59 :00 No [id number] 1 tablet NOON 1 tablet NOON (route: oral) Med Classific ation: Electroly te Balance-N utritiona l Products Vitamin D3 25 mcg (1,000 unit) capsule 2-14 00:00: 00 09-24 23:59 :00 No [id number] 1 capsule NOON 1 capsule NOON (route: oral) Med Classific ation: Electroly te Balance-N utritiona l Products lamotrigine 25 mg tablet 3- 00:00: 00 09-24 23:59 :00 No [id number] 2 tablet 2 TIMES DAILY 2 tablet 2 TIMES DAILY (route: oral) Med Classific ation: Central Nervous System Agents calcium carbonate 600 mg calcium (1,500 mg) tablet 3-04 00:00: 09-24 23:59 :00 No [id number] 1 tablet NOON 1 tablet NOON (route: oral) Med Classific ation: Electroly te Balance-N utritiona l Products chlorpromaz ine 25 mg tablet 02-18 00:00: 00 09-24 23:59 :00 No [id number] 2 tablet EVERY AM 2 tablet EVERY AM (route: oral) Med Classific ation: Central Nervous System Agents chlorpromaz ine 25 mg tablet 02-18 00:00: 00 09-24 23:59 :00 No [id number] 3 tablet BEDTIME 3 tablet BEDTIME (route: oral) Med Classific ation: Central Nervous System Agents lamotrigine 100 mg tablet 02-18 00:00: 00 09-24 23:59 :00 No [id number] 2 tablet BEDTIME 2 tablet BEDTIME (route: oral) Med Classific ation: Central Nervous System Agents levothyroxi ne 125 mcg tablet 02-18 00:00: 00 09-24 23:59 :00 No [id number] 1 tablet EVERY AM 1 tablet EVERY AM (route: oral) Med Classific ation: Endocrine trihexyphen idyl 2 mg tablet 02-18 00:00: 00 09-24 23:59 :00 No [id number] 1 tablet EVERY AM 1 tablet EVERY AM (route: oral) Med Classific ation: Central Nervous System Agents ziprasidone 20 mg capsule 02-18 00:00: 00 09-24 23:59 :00 No [id number] 1 capsule 2 TIMES DAILY 1 capsule 2 TIMES DAILY (route: oral) Med Classific ation: Central Nervous System Agents ziprasidone 80 mg capsule 02-18 00:00: 00 09-24 23:59 :00 No [id number] 1 capsule 2 TIMES DAILY 1 capsule 2 TIMES DAILY (route: oral) Med Classific ation: Central Nervous System Agents Cipro 500 mg tablet - 00:00: 00 04-27 23:59 :00 No [id number] 1 tablet 2 TIMES DAILY 1 tablet 2 TIMES DAILY (route: oral) Med Classific ation: Anti-Infe ctive Agents metronidazo le 250 mg tablet 04-18 00:00: 00 04-27 23:59 :00 No [id number] 1 tablet 3 TIMES DAILY 1 tablet 3 TIMES DAILY (route: oral) Med Classific ation: Anti-Infe ctive Agents famotidine 20 mg tablet 2023-12 00:00: 00 09-24 23:59 :00 No [id number] 1 tablet DAILY 1 tablet DAILY (route: oral) Med Classific ation: Gastroint estinal Therapy Agents omeprazole 20 mg capsule,del ayed release 03-05 00:00: 00 09-24 23:59 :00 No [id number] 1 capsule 2 TIMES DAILY 1 capsule 2 TIMES DAILY (route: oral) Med Classific ation: Gastroint estinal Therapy Agents clindamycin HCl 300 mg capsule 05-13 00:00: 00 06-06 23:59 :00 No [id number] 1 capsule 3 TIMES DAILY 1 capsule 3 TIMES DAILY (route: oral) Med Classific ation: Anti-Infe ctive Agents oxycodone 5 mg capsule 05-13 00:00: 00 09-24 23:59 :00 No [id number] 5 mg EVERY 6 HOURS 5 mg EVERY 6 HOURS (route: oral) Med Classific ation: Analgesic , Anti-infl ammatory or Antipyret ic calcium carbonate 600 mg calcium (1,500 mg) tablet 2024-12 00:00: 00 Yes [id number] 1 tablet NOON 1 tablet NOON (route: oral) Med Classific ation: Electroly te Balance-N utritiona l Products Centrum Silver Women 8 mg iron-400 mcg-50 mcg tablet 2024-12 00:00: 00 Yes [id number] 1 tablet NOON 1 tablet NOON (route: oral) Med Classific ation: Electroly te Balance-N utritiona l Products chlorpromaz ine 25 mg tablet 2024-12 00:00: 00 Yes [id number] 2 tablet EVERY AM 2 tablet EVERY AM (route: oral) Med Classific ation: Central Nervous System Agents chlorpromaz ine 25 mg tablet 2024-12 00:00: 00 Yes [id number] 3 tablet BEDTIME 3 tablet BEDTIME (route: oral) Med Classific ation: Central Nervous System Agents clonazepam 0.25 mg disintegrat ing tablet 2024-12 00:00: 00 Yes [id number] 1 tablet 3 TIMES DAILY 1 tablet 3 TIMES DAILY (route: oral) Med Classific ation: Central Nervous System Agents CoQ-10 100 mg capsule 2024-12 00:00: 00 Yes [id number] 1 capsule NOON 1 capsule NOON (route: oral) Med Classific ation: Alternati ve Therapy famotidine 20 mg tablet 2024-12 00:00: 00 Yes [id number] 1 tablet EVERY PM 1 tablet EVERY PM (route: oral) Med Classific ation: Gastroint estinal Therapy Agents lamotrigine 100 mg tablet 2024-12 00:00: 00 Yes [id number] 2 tablet BEDTIME 2 tablet BEDTIME (route: oral) Med Classific ation: Central Nervous System Agents lamotrigine 25 mg tablet 2024-12 00:00: 00 Yes [id number] 2 tablet 2 TIMES DAILY 2 tablet 2 TIMES DAILY (route: oral) Med Classific ation: Central Nervous System Agents levothyroxi ne 125 mcg tablet 2024-12 00:00: 00 Yes [id number] 1 tablet EVERY AM 1 tablet EVERY AM (route: oral) Med Classific ation: Endocrine omeprazole 20 mg capsule,del ayed release 2024-12 00:00: 00 Yes [id number] 1 capsule 2 TIMES DAILY 1 capsule 2 TIMES DAILY (route: oral) Med Classific ation: Gastroint estinal Therapy Agents oxycodone 5 mg capsule 2024-12 00:00: 00 Yes [id number] 5 mg EVERY 6 HOURS 5 mg EVERY 6 HOURS (route: oral) Med Classific ation: Analgesic , Anti-infl ammatory or Antipyret ic simvastatin 40 mg tablet 2024-12 00:00: 00 Yes [id number] 1 tablet BEDTIME 1 tablet BEDTIME (route: oral) Med Classific ation: Cardiovas cular Therapy Agents trazodone 50 mg tablet 2024-12 00:00: 00 Yes [id number] 1 tablet BEDTIME 1 tablet BEDTIME (route: oral) Med Classific ation: Central Nervous System Agents trihexyphen idyl 2 mg tablet 2024-12 00:00: 00 Yes [id number] 1 tablet EVERY AM 1 tablet EVERY AM (route: oral) Med Classific ation: Central Nervous System Agents Vitamin C 1,000 mg tablet 2024-12 00:00: 00 Yes [id number] 1 tablet NOON 1 tablet NOON (route: oral) Med Classific ation: Electroly te Balance-N utritiona l Products Vitamin D3 25 mcg (1,000 unit) tablet 2024-12 00:00: 00 Yes [id number] 1 tablet NOON 1 tablet NOON (route: oral) Med Classific ation: Electroly te Balance-N utritiona l Products ziprasidone 20 mg capsule 2024-12 00:00: 00 Yes [id number] 1 capsule 2 TIMES DAILY 1 capsule 2 TIMES DAILY (route: oral) Med Classific ation: Central Nervous System Agents ziprasidone 80 mg capsule 2024-12 00:00: 00 Yes [id number] 1 capsule 2 TIMES DAILY 1 capsule 2 TIMES DAILY (route: oral) Med Classific ation: Central Nervous System Agents Vital Signs Vital Name Observation Time Observation Value Commen ts Temperature 2025-09-10 08:23:00.000 98.6 [degF] Temperature 2025-09-09 09:20:00.000 98.1 [degF] Pulse 2025-09-10 08:23:00.000 82 /min Pulse 2025-09-09 09:20:00.000 66 /min Respirations 2025-09-10 08:23:00.000 20 /min Respirations 2025-09-09 09:20:00.000 16 /min Systolic Blood Pressure 2025-09-10 08:23:00.000 132 mm [Hg] Systolic Blood Pressure 2025-09-09 09:20:00.000 122 mm [Hg] Diastolic Blood Pressure 2025-09-10 08:23:00.000 78 mm [Hg] Diastolic Blood Pressure 2025-09-09 09:20:00.000 76 mm [Hg] Plan of Treatment Planned Activity [...] RSE TO PRE-POUR MEDICATION PER MEDICATION LIST WEEKLY, BUT LOCKED UP. [code = SKILLED NURSE TO PRE-POUR MEDICATION PER MEDICATION LIST WEEKLY, BUT LOCKED UP.] Future Scheduled Test PATIENT MA Y HAVE [...] OF PATIENTS MENTAL/BEHAVIORAL STATUS, ASSESS VITAL SIGNS NEEDED OR REQUESTED, ALLOW 2 PRNS FOR MEDICATION MANAGEMENT. [code = SKILLED NURSE TO O/A OF PATIENTS MENTAL/BEHAVIORAL STATUS, ASSESS VITAL SIGNS NEEDED OR REQUESTED, ALLOW 2 PRNS FOR MEDICATION MANAGEMENT.] Future Scheduled Test SKILLED NU RSE FOR O/A OF ALTERED THOUGHT PROCESS AND/OR DISRUPTION IN COGNITIVE OPERATIONS AND ACTIVITIES. [code = SKILLED NURSE FOR O/A OF ALTERED THOUGHT PROCESS AND/OR DISRUPTION IN COGNITIVE OPERATIONS AND ACTIVITIES.] Future Scheduled Test SKILLED NU RSE MAY PICKUP AND TRANSPORT MEDICATIONS [code = SKILLED NURSE MAY PICKUP AND TRANSPORT MEDICATIONS] Future Scheduled Test SKILLED NU RSE FOR O/A OF GENERAL HEALTH STATUS OF PAIN, CARDIAC, RESPIRATORY, GASTROINTESTINAL, GENITOURINARY, SKIN, NEUROLOGIC, ENDOCRINE SYSTEMS TO IDENTIFY CHANGES ASSOCIATED WITH EXACERBATION FOR EARLY INTERVENTION OF COMPLICATIONS. [code = SKILLED NURSE FOR O/A OF GENERAL HEALTH STATUS OF PAIN, CARDIAC, RESPIRATORY, GASTROINTESTINAL, GENITOURINARY, SKIN, NEUROLOGIC, ENDOCRINE SYSTEMS TO IDENTIFY CHANGES ASSOCIATED WITH EXACERBATION FOR EARLY INTERVENTION OF COMPLICATIONS.] Future Scheduled Test SKILLED NU RSE FOR O/A AND SKILLED TEACHING OF COPING SKILLS TO MANAGE ANXIETY AND MAINTAIN SAFETY. [code = SKILLED NURSE FOR O/A AND SKILLED TEACHING OF COPING SKILLS TO MANAGE ANXIETY AND MAINTAIN SAFETY.] Future Scheduled Test SKILLED NU RSE FOR [...] INTERVENTION.] Future Scheduled Test SKILLED NU RSE FOR O/A OF CLIENT'S SOCIAL ISOLATION AND PROVIDE ASSISTANCE TO CLIENT IN DEVELOPMENT OF PLANNED ACTIVITIES [code = SKILLED NURSE FOR O/A OF CLIENT'S SOCIAL ISOLATION AND PROVIDE ASSISTANCE TO CLIENT IN DEVELOPMENT OF PLANNED ACTIVITIES] Future Scheduled Test SKILLED NU RSE TO ASSESS PATIENT S PSYCHOSOCIAL STATUS TO IDENTIFY POTENTIAL ISSUES THAT MAY COMPLICATE THE PROVISION OF THE PLAN OF CARE INCLUDING THE PATIENT S ABILITY TO ACCESS COMMUNITY RESOURCES AND PSYCHOSOCIAL SUPPORT SERVICES. [code = SKILLED NURSE TO ASSESS PATIENT S PSYCHOSOCIAL STATUS TO IDENTIFY POTENTIAL ISSUES THAT MAY COMPLICATE THE PROVISION OF THE PLAN OF CARE INCLUDING THE PATIENT S ABILITY TO ACCESS COMMUNITY RESOURCES AND PSYCHOSOCIAL SUPPORT SERVICES.] Future Scheduled Test SKILLED NU RSE WILL MAINTAIN SITUATIONAL AWARENESS FOR SAFETY AND WILL NOTIFY CLINICAL FRUIT HARVEST MACHINE OPERATOR AND PHYSICIAN/PROVIDER WITH ANY CHANGE IN CONDITION. [code = SKILLED NURSE WILL MAINTAIN SITUATIONAL AWARENESS FOR SAFETY AND WILL NOTIFY CLINICAL FRUIT HARVEST MACHINE OPERATOR AND PHYSICIAN/PROVIDER WITH ANY CHANGE IN CONDITION.] [...] MEDICATION COMPLIANCE, INCREASE STAMINA AND STRENGTH Goal 2025-08-29 Patient Goal - T O FEEL MORE [...] CARE WILL BE ESTABLISHED THAT MEETS PATIENT'S HALF-WAY NEEDS AND INCLUDES PATIENT GOAL FOR HOME [...] DAILY FUNCTIONS AND HAVE OPTIMAL IMPROVEMENT IN THOUGHT PROCESS THROUGHOUT CERTIFICATION PERIOD. Goal Provider Goal - SKILLED NURSE PICKED UP AND TRANSPORTED MEDICATIONS FOR SAFETY. Goal Provider Goal - CHANGE IN GENERAL HEALTH STATUS WILL BE IDENTIFIED AND REPORTED TO PHYSICIAN FOR PROMPT INTERVENTION TO MINIMIZE ASSOCIATED RISKS THROUGHOUT CERTIFICATION PERIOD. Goal Provider Goal - PATIENT WILL BE ABLE TO PERFORM DAILY FUNCTIONS AND HAVE OPTIMAL IMPROVEMENT IN LEVEL OF ANXIETY THROUGHOUT CERTIFICATION PERIOD. Goal Provider Goal - PATIENT WILL REMAIN SAFE WITHOUT DECOMPENSATION IN DEPRESSIVE CONDITION, WHILE MAINTAINING OPTIMAL LEVEL OF MENTAL HEALTH AND WELL BEING THROUGHOUT CERTIFICATION PERIOD. Goal Provider Goal - PATIENT WILL DEMONSTRATE AN INCREASED INTEREST IN SOCIALIZATION AND ACTIVITIES BY THE END OF THE CERTIFICATION PERIOD. Goal Provider Goal - PSYCHOSOCIAL NEEDS WILL BE IDENTIFIED AND PLAN IMPLEMENTED TO MINIMIZE RISK THROUGHOUT CERTIFICATION PERIOD. Goal Provider Goal - PATIENT WILL REMAIN SAFE IN THE COMMUNITY AND WILL BE FREE OF DANGER TO SELF AND OTHERS THROUGHOUT THE CERTIFICATION PERIOD. Progress Notes Progress Notes <paragraph>[Visit Date: 2024 by ESTRELLA PADILLA RN]:</paragraph><paragraph>10/01/25- SNV MADE TO ASSESS MENTAL HEALTH STATUS SAFETY MEDICATION COMPLIANCE. NOON MEDICATION ADMINISTERED WITH DIRECT OBSERVATION, PM BEDTIME AND TOMORROW AM MEDICATION PREFILLED. ALL MEDICATIONS SECURED IN LOCK BOX FOR SAFETY. NO WILLING CAREGIVERS TO ASSIST WITH MEDICATION.</paragraph> <paragraph>[Visit Date: 2024 by ESTRELLA PADILLA RN]:</paragraph><paragraph>10/02/25 HALF-WAY VISIT MADE TO ASSESS MENTAL HEALTH STATUS SAFETY MEDICATION COMPLIANCE AFTERNOON MEDS ADMINISTERED WITH DIRECT OBSERVATION. EVENING BEDTIME AND TOMORROW A.M. MEDICATIONS PRE POURED. ALL MEDICATIONS SECURED IN LOCKBOX FOR SAFETY. NO WILLING CAREGIVER TO ASSIST. . PATIENT WAS COMPLIANT WITH ALL PREFILLED MEDICATIONS FROM YOU IN THIS EARLY AM</paragraph> Encounters Start Date/Time End Date/Time Encounter Type Admission Type [facility] Encounter ID Discharge Date Discharge Status Discharge Condition Discharge Reason Percent Goals Met 2025-09-01 00:00:00 2025-10-30 00:00:00 Outpatient RECERTIFIC ATHEIDI GONZALEZ [facility] [id number]
== END 2025-10-04 19:46 | disposition home or self-care (01) ==
PROVIDERS: Emergency Provider Student in an Organized Health Care Education/Training Program; PCP Internal Medicine
DX: Z04.3 Encounter for examination and observation following other accident (principal); M54.50 Low back pain, unspecified; N18.4 Chronic kidney disease, stage 4 (severe); Z91.81 History of falling; Z88.0 Allergy status to penicillin; Z88.2 Allergy status to sulfonamides; Z88.6 Allergy status to analgesic agent; Z88.8 Allergy status to other drugs, medicaments and biological substances
CPT/HCPCS: 70450; 72125; 72220; 99284

== ENCOUNTER → 2025-10-04 15:45 | Outpatient (BNV) | payer MEDICARE, MEDICAID, SELFPAY | PROVIDERS: Emergency Provider Student in an Organized Health Care Education/Training Program; PCP Internal Medicine; Visit Provider Radiology Diagnostic Radiology | DX: M47.812 Spondylosis without myelopathy or radiculopathy, cervical region (principal); Z90.09 Acquired absence of other part of head and neck; S09.90XA Unspecified injury of head, initial encounter; Z04.3 Encounter for examination and observation following other accident | CPT/HCPCS: 70450; 72125 ==

== ENCOUNTER 2025-10-05 17:07 | Emergency (ER) | payer MEDICARE, MEDICAID, SELFPAY ==
--- OUTSIDE RECORDS SUMMARY | 2025-10-01 22:59 | XMS_ITS | Continuity of Care Document ---
Author Organization [facility] Joe lt Address [address] [place] [address]- Care Team Providers Care Data Migration Consultant Name Role Phone Parris NOBLE, Francis Judge Primary Care Physician Encounter [facility] [place] Date(s): 09/01/25 - 10/01/25 [facility] Adult [address] [place] [address]- Encounter Type: Triage Allergies, Adverse Reactions, Alerts Substance Criticality Severity Reaction Reaction Severity Status erythromycin Active aspirin Active Bactrim Active ZyPREXA Active penicillins Active Motrin Active Inderal Active Cogentin Active ZyrTEC Active Trilafon Active Wellbutrin Active Resperal Active Immunizations Given and Recorded Vaccine Date Status Refusal Reason influenza virus vaccine, inactivated 09/14/24 Caleb rded influenza virus vaccine, inactivated 09/30/23 Caleb rded influenza virus vaccine, inactivated 12/27/22 Caleb rded influenza virus vaccine, inactivated 10/18/21 Caleb rded zoster vaccine, inactivated 02/17/24 Recorded zoster vaccine, inactivated 07/25/23 Recorded SARS-CoV-2(COVID-19)mRNA-LNP vac([id number]) 01/27/24 Recorded [id number] bivalent booster vax 10/16/22 Recorded tetanus/diphtheria/pertussis, acel(Tdap) 05/26/22 Recorded SARS-CoV-2 (COVID-19) mRNA-1273 vaccine 11/29/21 R ecorded SARS-CoV-2 (COVID-19) mRNA-1273 vaccine 04/21/21 R ecorded SARS-CoV-2 (COVID-19) mRNA-1273 vaccine 03/24/21 R ecorded Medications Geodon Capsule 0 Refills, Maintenance, 12/25/11 11:32:51 AM EST Start Date: 12/25/11 Status: Ordered Medication Dispense Status: Completed Total Allowed Fills: 1 Fills Dispensed: 0 KLONopin Tablet By Mouth, 3 times a day, 0 Refills, Maintenance, 12/25/11 11:33:17 AM EST Start Date: 12/25/11 Status: Ordered Medication Dispense Status: Completed Total Allowed Fills: 1 Fills Dispensed: 0 KLONopin Tablet By Mouth, 3 times a day, 0 Refills, Maintenance, 12/25/11 11:33:37 AM EST Start Date: 12/25/11 Status: Ordered Medication Dispense Status: Completed Total Allowed Fills: 1 Fills Dispensed: 0 Lamictal Tablet By Mouth, 2 times a day, Maintenance, 12/25/11 11:32:38 AM EST Start Date: 12/25/11 Status: Ordered Medication Dispense Status: Completed Total Allowed Fills: 1 Fills Dispensed: 0 Levothyroxine = 125 mcg, Daily, 0 Refills, Maintenance, 12/25/11 11:32:14 AM EST Start Date: 12/25/11 Status: Ordered Medication Dispense Status: Completed Total Allowed Fills: 1 Fills Dispensed: 0 levothyroxine 0.112 mg oral tablet 1 tablet = 112 mcg, By Mouth, Daily, # 90 tablet, 3 Refills, Maintenance, 09/06/25 2:24:00 PM EDT, [facility], Partial fill upon patient request if the prescription is for a scheduleII opioid drug., 167, cm, 08/25/25 12:43:00 EDT, Height Start Date: 09/06/25 Status: Ordered Medication Dispense Status: Completed Quantity: 90.0 Unit: tablet Total Allowed Fills: 4 Fills Dispensed: 0 levothyroxine 112 mcg (0.112 mg) oral capsule 1 capsule = 112 mcg, By Mouth, Daily, # 90 capsule, 3 Refills, Maintenance, 09/09/25 3:02:00 PM EDT, [facility], Partial fill upon patient request if the prescription is for a schedule II opioid drug., 167, cm, 08/25/25 12:43:00 EDT, Height Start Date: 09/09/25 Status: Ordered Medication Dispense Status: Completed Quantity: 90.0 Unit: capsule Total Allowed Fills: 4 Fills Dispensed: 0 Simvastatin By Mouth, Daily at bedtime, 0 Refills, Maintenance, 12/25/11 11:33:08 AM EST Start Date: 12/25/11 Status: Ordered Medication Dispense Status: Completed Total Allowed Fills: 1 Fills Dispensed: 0 Problem List Condition Confirmation Course Effective Dates Status H ealth Status Informant Pap smear abnormality of cervix with ASCUS favoring dysplasia Confirmed Active History of HPV infection Confirmed Active Routine Gynecological Examination Confirmed Active Social History Social History Type Response Smoking Status Former smoker, quit more than 30 days ago entered on: 07/27/25 Sex Sex Representation Female (finding) Patient Care team information Care Team Personnel Name: Francis Nye MD Position: S Physician - Primary Care Member Role: PCP Address: [address] [place] [id number] Telecom: Care Team Related Persons Name: MK SWIFT Name: YVETTE CASIANO Insurance Providers Guarantor name: KAY CASIANO [facility] Information #: 1 Payer: MEDICARE B Payer Identifier: SHAR Member Number: [id number] Group Number: SHAR Subscriber Identifier: SHAR Relationship to Subscriber: self Coverage Type: NA Coverage Verification Date: NA Telecom: NA Address: Health Plan Information #: 2 Payer: [employer] Payer Identifier: SHAR Member Number: [id number] Group Number: SHAR Subscriber Identifier: NA Relationship to Subscriber: self Coverage Type: MEDICAID Coverage Verification Date: NA Telecom: NA Address:
--- OUTSIDE RECORDS SUMMARY | 2025-10-02 23:59 | XMS_ITS | Continuity of Care Document ---
Author Organization [facility] [place] Joe lt Address [address] [place] [address]- Care Team Providers Care Turn Down Attendant Name Role Phone Parris NOBLE, Francis Judge Primary Care Physician [phone] Encounter [facility] [place] Date(s): 09/02/25 - 10/02/25 [facility] [place] Adult [address] [place] [address]- Encounter Type: Triage Allergies, Adverse Reactions, Alerts [...] Recorded zoster vaccine, inactivated 07/25/23 Recorded SARS-CoV-2(COVID-19)mRNA-LNP vac([id number]) 01/27/24 Recorded [id number] bivalent booster vax 10/16/22 Recorded tetanus/diphtheria/pertussis, acel(Tdap) [...] - Primary Care Member Role: PCP Address: [address] [place] [id number] Telecom: Care Team Related Persons Name: MK SWIFT Name: YVETTE CASIANO Insurance Providers Guarantor name: KAY CASIANO [facility] Information #: 1 Payer: MEDICARE B Payer Identifier: SHAR Member Number: [id number] Group Number: SHAR Subscriber Identifier: SHAR Relationship to Subscriber: self Coverage Type: NA Coverage Verification Date: NA Telecom: NA Address: Health Plan Information #: 2 Payer: [employer] Payer Identifier: SHAR Member Number: [id number] Group Number: [id number] Subscriber Identifier: NA Relationship to Subscriber: self Coverage Type: MEDICAID Coverage Verification Date: NA Telecom: NA Address:
[2025-10-05 17:24] VITALS: BP 140/77; PULSE 80; RESP 18; TEMP 36.7; O2SAT 98; BMI 24.8
--- NOTE | 2025-10-05 17:52 | ED.GENADULT ---
HPI - General Adult General Chief complaint: Headache Stated complaint: tight feeling on head was here yest for a fall Time Seen by Provider: 10/05/25 20:53 Source: patient Mode of arrival: ambulatory Limitations: no limitations History of Present Illness ED Provider: Adelso DOVER HPI narrative: The patient is a 65-year-old female with a history of PTSD, personality disorder, bipolar disorder, dissociated identity disorder, anxiety, depression, GERD, hypothyroid, IBS, and CKD, presenting to the ED for re-evaluation of a headache. Patient was seen in his ED yesterday status post fall in the kitchen without loss of consciousness or anticoagulation. The patient was evaluated with a head CT and neck CT which were negative for intracranial hemorrhage or fracture. The patient returns today stating she has been experiencing a fullness/tightness sensation of her head since waking. Patient denies associated dizziness, recurrent fall, vomiting, nausea, vision change, focal neurological deficit, or other acute somatic complaint. The patient reports she took Tylenol at 09:30 with some relief but was unsure if it was okay to take additional Tylenol. Patient reports she contacted her PCP office who instructed her to come back to the ED for a repeat CT head to rule out ?a brain bleed?. Related Data Home Medications ?Medication ?Instructions ?Recorded ?Confirmed clonazepam 0.25 mg disintegrating 0.25 mg PO TID PRN anxiety 05/16/24 05/16/24 tablet famotidine 20 mg tablet 20 mg PO BEDTIME Acid Reflux 05/16/24 05/19/24 lamotrigine 200 mg tablet 200 mg PO BEDTIME 05/16/24 05/16/24 lamotrigine 25 mg tablet 50 mg PO BID 05/16/24 05/19/24 omeprazole 20 mg capsule,delayed 20 mg PO DAILY 05/16/24 05/16/24 release ascorbic acid (vitamin C) 1,000 mg 1,000 mg PO DAILY 05/19/24 05/19/24 tablet (Vitamin C) calcium carbonate 600 mg PO DAILY 05/19/24 05/19/24 cholecalciferol (vitamin D3) 25 25 mcg PO DAILY 05/19/24 05/19/24 mcg (1,000 unit) capsule (Vitamin D3) coenzyme Q10 100 mg capsule 100 mg PO DAILY 05/19/24 05/19/24 (CoQ-10) [id number] 8 mg-folic 400 1 tab PO DAILY 05/19/24 05/19/24 mcg-K 50 mcg-lutein 300 mcg tablet (Centrum Silver Women) Previous Rx's ?Medication ?Instructions ?Recorded chlorpromazine 25 mg tablet 50 mg (2 x 25 mg) PO DAILY 30 days 12/02/23 #60 tabs chlorpromazine 25 mg tablet 75 mg (3 x 25 mg) PO BEDTIME 30 12/02/23 days #90 tabs levothyroxine 125 mcg tablet 125 mcg PO DAILY@0600 30 days #30 12/02/23 tabs simvastatin 40 mg tablet 40 mg PO BEDTIME 30 days #30 tabs 12/02/23 trazodone 50 mg tablet 50 mg PO BEDTIME PRN Insomnia 30 12/02/23 days #30 tabs trihexyphenidyl 2 mg tablet 2 mg PO QAM 30 days #30 tabs 12/02/23 ziprasidone HCl 20 mg capsule 20 mg PO BIDWM 30 days #60 caps 12/02/23 ziprasidone HCl 80 mg capsule 80 mg PO BIDWM 30 days #60 caps 12/02/23 lidocaine 5 % topical patch 1 patch topical DAILY #15 ea 06/27/25 (Lidoderm) ondansetron 4 mg disintegrating 4 mg PO Q8H PRN nausea and 06/29/25 tablet vomiting #20 tabs ondansetron 4 mg disintegrating 4 mg PO Q8H PRN nausea and 07/04/25 tablet vomiting #10 tabs Allergies Allergy/AdvReac Type Severity Reaction Status Date / Time Penicillins (PENICILLINS) Allergy Severe HIVES Verified 10/05/25 17:26 sulfamethoxazole (From Allergy Severe DIARRHEA Verified 10/05/25 17:26 BACTRIM) trimethoprim (From BACTRIM) Allergy Severe DIARRHEA Verified 10/05/25 17:26 aripiprazole (From ABILIFY) Allergy Intermediate ATAXIA Verified 10/05/25 17:26 aspirin (ASPIRIN) Allergy Intermediate STOMACH Verified 10/05/25 17:26 CRAMPS benztropine (From COGENTIN) Allergy Intermediate CONFUSION, Verified 10/05/25 17:26 memory loss bupropion (BUPROPION) Allergy Intermediate DIZZINESS Verified 10/05/25 17:26 erythromycin base Allergy Intermediate GI UPSET Verified 10/05/25 17:26 (ERYTHROMYCIN BASE) ibuprofen (From MOTRIN) Allergy Intermediate STOMACH Verified 10/05/25 17:26 CRAMPS olanzapine (From ZYPREXA) Allergy Intermediate TONGUE Verified 10/05/25 17:26 MOVEMENTS perphenazine (From TRILAFON) Allergy Intermediate ARM AND Verified 10/05/25 17:26 LEG MOVEMENTS, FALL risperidone (From RISPERDAL) Allergy Intermediate TONGUE Verified 10/05/25 17:26 MOVEMENT milk Allergy Drowsy Verified 10/05/25 17:26 egg AdvReac Stomach Verified 10/05/25 17:26 Upset From INDERAL Allergy Intermediate WHEEZING Uncoded 10/05/25 17:26 Review of Systems Review of Systems: Yes all other systems are reviewed and are negative [facility] Past Medical History Medical History Routine medical exam CKD (chronic kidney disease), stage IV Bipolar disorder Neck pain Murmur GERD (gastroesophageal reflux disease) Hypothyroidism Irritable bowel syndrome (IBS) Hyperlipidemia Anxiety and depression Dissociative identity disorder Surgical History Hx of colonoscopy History of total thyroidectomy Social History Social History Household Members: None Household Members Other:: roommate Housing: Apartment Are you a primary memory care program director to a significant other at home: No Do you presently have visiting nurse or other home services: Yes (pt has VNA for only one day prior to admission.) Alcohol intake: never Comment: aware of trip hazard Patient Tobacco Use Status: Former Tobacco user Tobacco use type: Cigarette Cigarette Packs Per Day: 1 Cigarettes Per Day: 20.0 Years Smoked: 20 e-Cigarette/Vaping Use: Never Used Second Hand Smoke Exposure: No Advance Directives: No Advance Directives Information Provided: No Do you have a plan to hurt others: No Plan service: No Sexual orientation: Did not discuss Physical Exam ED Vital Signs: Vital Signs - 24 hr 10/05/25 17:24 10/05/25 22:35 Temperature 98.1 F 98.1 F Pulse Rate 80 75 Respiratory Rate 18 16 Blood Pressure 140/77 H 144/67 H Pulse Oximetry 98 98 Oxygen Delivery Method Room Air Room Air BMI result Body Mass Index 24.8 CONSTITUTIONAL: The patient appears non-toxic, well nourished and in no acute distress. Vital signs as documented. HEAD: Atraumatic, normocephalic. EYES: EOMs intact and nonpainful, pupils equal, round and reactive to light, conjunctiva clear, no exudate. ENT: Nares patent, no discharge. Airway patent, no audible stridor, visible mucosa is pink and moist without noted lesions. NECK: Trachea is midline, no obvious masses or gross abnormalities. CHEST: Symmetric movement, normal appearance. LUNGS: LS present and CTAB, no w/r/r. Non-labored work of breathing. CARDIAC: Regular Rhythm, S1/S2 appreciated, no murmurs, rubs or gallops. ABDOMEN: Abdomen soft and non-tender x4 quadrants, no palpable masses or organomegaly. : Deferred. EXTREMITIES: Normal tone, moves all extremities spontaneously without reported pain. No obvious acute injury or deformity noted. NEURO: Alert and oriented x4, CN II-XII intact. Cerebellar Functioning intact. No sensory or motor deficits. Strength 5/5 x4. Ambulates with a steady gait. Negative Romberg. Speech clear and appropriate. PSYCH: normal affect, appropriate eye contact, fluid speech, with appropriate response to questioning. No reported suicidality or homicidality. SKIN: Warm, dry, color appropriate, normal turgor. No rashes noted. Course Course Course Narrative: RME: 65 yold female presents to the ED for head pressure for the last 2 days. patient was seen here yesterday for fall with norming imaging. patient to be re-evaluated int he ED Medications Administered Discontinued Medications Generic Name Dose Route Start Last Admin Trade Name Freq PRN Reason Stop Dose Admin Acetaminophen 975 mg 10/05/25 21:31 10/05/25 21:59 Acetaminophen 325 Mg Tablet PO 10/05/25 21:32 975 mg ONCE ONE Administration Medical Decision Making Medical Decision Making MDM Narrative: 9:32 PM 10/05/2025 (Fawn DOVER): The patient is a 65-year-old female with a history of PTSD, personality disorder, bipolar disorder, dissociated identity disorder, anxiety, depression, GERD, hypothyroid, IBS, and CKD, presenting to the ED for re-evaluation of a headache. Patient was seen in his ED yesterday status post fall in the kitchen without loss of consciousness or anticoagulation. The patient was evaluated with a head CT and neck CT which were negative for intracranial hemorrhage or fracture. The patient returns today stating she has been experiencing a fullness/tightness sensation of her head since waking. Patient denies associated dizziness, recurrent fall, vomiting, nausea, vision change, focal neurological deficit, or other acute somatic complaint. The patient reports she took Tylenol at 09:30 with some relief but was unsure if it was okay to take additional Tylenol. Patient reports she contacted her PCP office who instructed her to come back to the ED for a repeat CT head to rule out ?a brain bleed?. On exam the patient is well-appearing, neuro exam is benign, no focal motor or sensory deficits, cerebellar functioning intact, cranial nerves intact, A&O x4, ambulates with a steady gait, negative Romberg, patient is able to exhibit higher function activities without difficulty or evidence of discomfort, specifically reading and writing. Chart from yesterday confirms no intracranial hemorrhage on CT. Confirmed patient is not anticoagulated. Laboratory evaluation today is reassuring. Patient is likely suffering from postconcussion syndrome. At this time there is no indication for repeat CT head, patient has been educated in depth on safe usage of Tylenol. Patient will be discharged with instructions to follow up with PCP. Admission/Observation Consideration of admission/observation: Escalation of care including admission/observation considered Lab Data MDM Lab Attestation statement: I reviewed the patient's lab results. 10/05/25 20:18 10/05/25 20:18 Labs: Lab Results 10/05/25 Range/Units 20:18 WBC 6.2 (4.8-10.8) X10*3/uL RBC 4.20 (4.20-5.50) X10*6/uL Hgb 13.0 (12.0-16.0) g/dl Hct 36.3 L (37.0-47.0) % MCV 86.4 (80.0-98.0) fL MCH 31.0 (27.0-33.0) pg MCHC 35.8 H (31.0-35.0) g/dl RDW 11.9 (11.0-16.0) % Plt Count 200 (160-400) X10*3/uL MPV 8.4 L (9.4-12.3) fL Immature Gran % (Auto) 0.3 (0.0-0.4) % Neut % (Auto) 67.6 (45-73) % Lymph % (Auto) 24.2 (20-40) % Sutton % (Auto) 7.4 (2-11) % Eos % (Auto) 0.0 (0-4) % Baso % (Auto) 0.5 (0-2) % Lymph # (Auto) 1.5 (1.2-4.9) X10*3/uL Sutton # (Auto) 0.5 (0.1-1.2) X10*3/uL Eos # (Auto) 0.0 (0.0-0.4) X10*3/uL Baso # (Auto) 0.0 (0.0-0.2) X10*3/uL Abs Immat Gran (auto) 0.02 (0.00-0.03) X10*3/uL Absolute Neuts (auto) 4.2 (2.0-8.3) x10*3/uL Absolute Nucleated RBC 0.000 (0.0-0.012) X10*3/uL Nucleated RBC % (auto) 0.0 (0.0-0.2) /100WBC Sodium 143 (135-145) mmol/L Potassium 3.9 (3.3-5.1) mmol/L Chloride 107 (96-108) mmol/L Carbon Dioxide 30 H (22-29) mmol/L Anion Gap 10 L (12-20) BUN 24 H (9-16) mg/dL Creatinine 1.88 H (0.5-1.4) mg/dL Estim Creat Clear Calc 26.0 Estimated GFR 27 Random Glucose 92 (60-115) mg/dL Calcium 10.2 D (8.4-10.2) mg/dL Total Bilirubin 0.5 (0.0-1.0) mg/dL AST 27 (5-31) U/L ALT 26 (0-31) U/L Alkaline Phosphatase 44 (39-117) U/L Total Protein 7.2 (6.5-8.0) g/dL Albumin 4.8 (3.5-5.0) g/dL COVID-19 (DEDE) Negative (Negative) COVID-19 Clin Com See Note Influenza Type A (TEMI) Negative (Negative) Influenza Type B (TEMI) Negative (Negative) Influenza A & B Note See Note External Record Review External record reviewed: Outpatient record and Prior outpatient labs Prescription Management I considered prescription management with: Pain Medication Discharge Plan Discharge Clinical Impression: Postconcussion syndrome Patient Disposition: Home, Self-Care Instructions: Post Concussion Syndrome (ED) Additional Instructions: Thank you for choosing [facility] Emergency Department for your care today. Thankfully your laboratory evaluation, and viral swabs today were all negative. Your neuro exam was normal. At this time there is no indication for a repeat head CT, admission to the hospital, or continued ED observation, and it is safe to discharge you home. Your workup today is consistent with postconcussive syndrome. A concussion is a bruise to your brain which may cause nausea, vomiting, headache, and difficulty concentrating/focusing. Similar to any other bruising, you must rest the injured area to prevent recurrent symptoms, reinjury, or other complications. In order to rest your brain, please avoid use of electronics such as cell phones, iPads, or TVs. Please avoid highly complex mental tasks/projects that require intense focus or concentration, and please avoid strenuous physical activity. You should take up to 1000 mg of Tylenol every 6 hours as needed for any additional pain. A dose of 1000 mg of Tylenol can be achieved by taking 3 tablets of regular strength (325 mg) Tylenol, or 2 tablets of extra-strength (500 mg) Tylenol. Please stay well hydrated and get plenty of rest. Please follow up with your primary care physician for re-evaluation, additional management of your symptoms, and continued preventative care. If you do not have a primary care physician, please call the [facility] at [phone] to establish a new primary care physician. While waiting to establish your new primary care physician, you can call our [facility] at [phone] for non-emergency needs. Please return to the emergency department if you develop a severe or sudden change in your symptoms, a fever over 100.4 that does not improve with Tylenol or Ibuprofen, recurrent vomiting, or any other new or worsening symptoms or concerns. Prescriptions: No Action trazodone 50 mg Tablet 50 mg PO BEDTIME PRN (Reason: Insomnia) 30 Days Qty: 30 0RF ziprasidone HCl 80 mg capsule 80 mg PO BIDWM 30 Days Qty: 60 0RF simvastatin 40 mg tablet 40 mg PO BEDTIME 30 Days Qty: 30 0RF ziprasidone HCl 20 mg Capsule 20 mg PO BIDWM 30 Days Qty: 60 0RF Rx Instructions: give with food (meal/snack) chlorpromazine 25 mg Tablet 50 mg PO DAILY 30 Days Qty: 60 0RF chlorpromazine 25 mg Tablet 75 mg PO BEDTIME 30 Days Qty: 90 0RF levothyroxine 125 mcg Tablet 125 mcg PO DAILY@0600 30 Days Qty: 30 0RF trihexyphenidyl 2 mg tablet 2 mg PO QAM 30 Days Qty: 30 0RF lamotrigine 25 mg tablet 50 mg PO BID famotidine 20 mg tablet 20 mg PO BEDTIME omeprazole 20 mg capsule,delayed release(DR/EC) 20 mg PO DAILY lamotrigine 200 mg tablet 200 mg PO BEDTIME clonazepam 0.25 mg tablet,disintegrating 0.25 mg PO TID PRN (Reason: anxiety) ascorbic acid (vitamin C) [Vitamin C] 1,000 mg Tablet 1,000 mg PO DAILY calcium carbonate 600 mg calcium (1,500 mg) Tablet 600 mg PO DAILY cholecalciferol (vitamin D3) [Vitamin D3] 25 mcg (1,000 unit) Capsule 25 mcg PO DAILY coenzyme Q10 [CoQ-10] 100 mg Capsule 100 mg PO DAILY Centrum Silver Women 8 mg iron-400 mcg-50 mcg Tablet 1 tab PO DAILY lidocaine [Lidoderm] 5 % adhesive patch,medicated 1 patch topical DAILY Qty: 15 0RF Rx Instructions: leave on most painful area for up to 12 hrs ondansetron 4 mg tablet,disintegrating 4 mg PO Q8H PRN (Reason: nausea and vomiting) Qty: 10 0RF ondansetron 4 mg tablet,disintegrating 4 mg PO Q8H PRN (Reason: nausea and vomiting) Qty: 20 0RF Referrals: Francis Nye MD [Primary Care Provider, Internal Medicine] Interventions: ED Discharge Assessment Last Done: 10/05/25 22:35 Discharge Date/Time: 10/05/25 22:36 Print Language: [place]
--- OUTSIDE RECORDS SUMMARY | 2025-10-05 20:11 | XMS_ITS | Encounter Summary ---
Author Organization [employer] Address [address] [facility] [place] [address] Care Team Providers Care Capsule Inspector Name Role Phone Unavailable Primary Care Provider Unavailabl e Reason for Visit * Reason Onset Date Comments scheduling emergency/evaluation appt/OS 02/29/20 25 Encounter Details Date Type Department Care Team (Late st Contact Info) Description 02/28/2025 Telephone [facility] [address] [place] [address] Marcie Estevez DMD scheduling emergency/evaluation appt/OS Social [...]
--- OUTSIDE RECORDS SUMMARY | 2025-10-05 20:11 | XMS_ITS | Encounter Summary ---
Author Organization [facility] Address [address] [place] [address] Phone Care Team Providers Care Web Press Operator Helper Offset Name Role Phone Francis Nye MD Primary Care Provider [phone] Encounter Details Date Type Department Care Team (Late st Contact Info) Description 09/21/2025 Documentation Only [facility], [address] [place] [address] Marielos MasMarianna, [place] [address] [place] [address] Social History Tobacco Use Types [...] on filedocumented in this encounter Care Teams Web Press Operator Helper Offset Relationship Specialty Start Date End Date Francis Nye MD [facility] [place], [place] PCP - General Internal Medicine 09/21/25 documented as of this encounter
--- OUTSIDE RECORDS SUMMARY | 2025-10-05 20:11 | XMS_ITS | Clinical Summary ---
Author Organization [facility] Address [address] [place] [address] Care Team Providers Care Radio Interference Supervisor Name Role Phone Lino Parker MD Primary Care Provider [phone] Allergies Active Allergy Reactions Criticality Noted Date [...] Advance Directives For more information, please contact: [phone] Latest Code Status on File Code Status Date Activated Date Inactivated Comments Full Code 04/15/2024 2:24 PM 04/17/2024 1:26 AM This code status was ascertained in the following way: discussion with patient . Care Teams Radio Interference Supervisor Relationship Specialty Start Date End Date Lino Parker MD [address] [place] [address] [place] [address] PCP - General Internal Medicine 04/15/24
--- OUTSIDE RECORDS SUMMARY | 2025-10-05 20:11 | XMS_ITS | Clinical Summary ---
Author Organization [employer] Address [address] [facility] [address] [place] [address] Care Team Providers Care Settlement Processor Name Role Phone Unavailable Primary Care Provider [...]
--- OUTSIDE RECORDS SUMMARY | 2025-10-05 20:11 | XMS_ITS | Clinical Summary ---
Author Organization [facility], Address [address] [facility] [address] [place] [address] Phone Care Team Providers Care Extension Course Counselor Name Role Phone Francis Nye MD Primary Care Provider [phone] Allergies Active Allergy Reactions Criticality Noted Date [...] Date Stage 3b chronic kidney disease 09/27/2025 [place] adverse reaction <Subsequent> 09/27/2025 [place] adverse reaction <Sequela> 09/27/2025 Encounters Date Type Department Care Team Description 09/27/2025 3:15 PM EDT Office Visit [facility] [address] [place] [id number] Giorgi Escalante MD Stage 3b chronic kidney disease (HCC) (Primary Dx); [place] adverse reaction <Sequela> 09/21/2025 Documentation Only [facility], [address] [address] Hyun Mas [place] from Last [...] topic Insurance Medicare Medicaid [place] Care Teams Extension Course Counselor Relationship Specialty Start Date End Date Francis Nye MD [facility] [place] PCP - General Internal Medicine 09/21/25
--- OUTSIDE RECORDS SUMMARY | 2025-10-05 20:11 | XMS_ITS | Clinical Summary ---
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 [place] [place] [facility] V28) 07/20/2018 Hyperlipidemia 07/20/2018 Hypothyroidism 07/20/2018 Mood disorder [place] [place] 07/20/2018 PTSD (post-traumatic stress disorder) 07/20/2018 Medical History Medical History Date Comments Other bipolar disorder ([facility] V24, [facility] [place] DX:Other bipolar disorder ([facility]) Post-traumatic stress disord er, unspecified DX:Post-traumatic stress dis order, unspecified 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 [place], [facility] [place] DX:Dissociative identity dis order ([facility]) Mood disorder ([facility] [place]) DX:M ood disorder ([facility]) No diagnosis on Napanoch II DX:No di agnosis on Napanoch II Social History Tobacco Use Types Packs/Day [...] Blood Pressure 132/68 02/19/2023 1:29 PM EDT Si tting L Arm Pulse 95 02/19/2023 1:29 PM [...] Insurance MEDICARE MEDICAID - [place] Care Teams Under Sheriff Relationship Specialty Start Date End Date Lino Parker MD [address] [place] [address] [place] [address] PCP - General Internal Medicine 07/13/18
--- OUTSIDE RECORDS SUMMARY | 2025-10-05 20:11 | XMS_ITS | Encounter Summary ---
Author Organization [employer] Address [address] [facility] [address] [place] [address] Care Team Providers Care Ecology Teacher Name Role Phone Unavailable Primary Care Provider Unavailabl e Reason for Visit * Reason Onset Date Comments Extraction aftercare 05/11/2025 Encounter Details Date Type Department Care Team (Late st Contact Info) Description 05/11/2025 Telephone [facility] [address] [place] [address] Hardeep Gibson, DMD [address] [place] [address] Extraction aftercare Social History Tobacco Use Types [...] Sent to both clinical support and front office manager documented in this encounter Plan of Treatment Not on file documented as of this encounter Visit Diagnoses Not on filedocumented in this encounter
--- OUTSIDE RECORDS SUMMARY | 2025-10-05 20:12 | XMS_ITS | Clinical Summary ---
Author Organization [facility] Address [address] [address] Phone Care Team Providers Care Med Surg Rn Name Role Phone Lino Parker MD Primary Care Provider [phone] Allergies Active Allergy Reactions Criticality Noted Date [...] file Insurance MEDIC[facility] PART A & [facility] & B Member Subscriber Plan / Payer (Ef fective 2023-Present) Name:ErikpricilaMaryse gonzalez Member ID:[id number] Relation to Subscriber:Self Name:Maryse Shaikh Subscriber ID:[id number] Payer ID:[id number] Group ID:Not on file Type:Medicare Address: [employer] [address] [place] A [place] [facility] Care Teams Med Surg Rn Relationship Specialty Start Date End Date Lino Parker MD [address] [place] [address] [place] [address] PCP - General Internal Medicine 10/24/23 Additional Source Comments The information contained in this document represents components of the legal health record. It is not the complete legal health record.[facility]
--- OUTSIDE RECORDS SUMMARY | 2025-10-05 20:12 | XMS_ITS | Patient Health Record ---
Author Organization [facility] Address [address] [place] [address] Care Team Providers Care Flotation Tender Name Role Phone Keith (RETIRED) Lino NOBLE Primary Care Provider Unavailable Abelardo Sal Unavailable [phone] Allergies Allergen (clinical drug ingredient) Drug/Non Drug [...] Problem Screening for malignant neoplasm of colon (735454452) Encounter for screening for malignant neoplasm of colon (Z12.11) Active confirmed Problem History of adenomatous polyp of colon (357410790) History of adenomatous polyp of colon (Z86.010) Active confirmed Problem Irritable bowel syndrome with diarrhea (369710467) Irritable bowel syndrome with diarrhea (K58.0) Active confirmed Problem Screening for malignant neoplasm of rectum (733396630) Encounter for screening for malignant neoplasm of rectum (Z12.12) Active confirmed Problem Preprocedural examination (625636796968388) Preprocedural examination (Z01.818) Active confirmed Problem Esophageal reflux finding (927996921) Gastroesophageal reflux (K21.9) Active confirmed Problem Diverticulosis of colon (512287507) Diverticulosis of colon (K57.30) Active confirmed Problem Gastroesophageal reflux disease (976265173) Gastroesophageal reflux disease, unspecified whether esophagitis present [...] Start Date Coverage End Date [facility] [address] [place] [id number] KAY CASIANO Self - patient is the insured Medical (General) History Medical History History ICD Code Screening colonoscopy 010--1.2cm sigmoid tubular adenoma, sigmoid diverticulosis, internal hemorrhoids PTSD, Disassociative identit y disorder, Depression, Bipolar disease--Dr. Adelina Shoemaker Hyperlipidemia Denies OR,DM,CVA,Lung disease,renal dise ase Hypothyroid in relation to thyroidectomy for thyroid cancer as below IBS--neg. celiac disease labs in 05/2015 Negative colonoscopy in 10/2016 Surgical History Surgery Date(Month/Year) Total thyroidectomy--cancer
[2025-10-05 20:24] LABS: MANUAL DIFF FLAG NO
[2025-10-05 20:26] LABS: Hematocrit 36.3 % (37.0-47.0); Hemoglobin 13.0 g/dl (12.0-16.0); Imm Gran Abs Auto 0.02 X10*3/uL (0.00-0.03); Imm Gran Pct Auto 0.3 % (0.0-0.4); Lymphocytes Absolute Auto 1.5 X10*3/uL (1.2-4.9); Mean Corpuscular HGB Conc 35.8 g/dl (31.0-35.0); Mean Corpuscular Hemoglobin 31.0 pg (27.0-33.0); Mean Corpuscular Volume 86.4 fL (80.0-98.0); NRBC Abs Auto 0.000 X10*3/uL (0.0-0.012); NRBC Pct Auto 0.0 /100WBC (0.0-0.2); Platelet Count 200 X10*3/uL (160-400); Red Blood Count 4.20 X10*6/uL (4.20-5.50); White Blood Count 6.2 X10*3/uL (4.8-10.8)
[2025-10-05 20:42] LABS: Alanine Aminotransferase 26 U/L (0-31); Albumin Level 4.8 g/dL (3.5-5.0); Alkaline Phosphatase 44 U/L (39-117); Anion Gap 10 (12-20); Aspartate Amino Transferase 27 U/L (5-31); Blood Urea Nitrogen 24 mg/dL (9-16); Calcium 10.2 mg/dL (8.4-10.2); Carbon Dioxide 30 mmol/L (22-29); Chloride 107 mmol/L (96-108); Creatinine Clr Calc Pharmacy 26.0; Estimated Glomerular Filt Rate 27; Potassium 3.9 mmol/L (3.3-5.1); Sodium 143 mmol/L (135-145); Total Protein 7.2 g/dL (6.5-8.0)
[2025-10-05 20:51] LABS: COVID-19 Test Negative (Negative); IDNOW Serial# 55D5AD1C; IDNOW Serial# 58CA691E; Influenza B2 Negative (Negative)
--- NOTE | 2025-10-05 22:34 | PC.NURSE ---
at time of d/c pt requested a lyft which was booked by house builder. pt is awaiting lyft. verbalized understanding d/c instructions, nad.
[2025-10-05 22:35] VITALS: BP 144/67; PULSE 75; RESP 16; TEMP 36.7; O2SAT 98
--- OUTSIDE RECORDS SUMMARY | 2025-10-29 19:00 | XMS_ITS | Clinical Summary ---
Author Organization Unknown Care Team Providers Care Block Operator Name Role Phone ALPESH NOBLE, JENNIFER Unavailable Unavailable ROM PT, SANDRA Unavailable Unavailable LUIS HERMAN, HEIDI Unavailable Unavailable ARELY FELDERW, JANA Unavailable Unavailable Payers Payer Name Policy Type Policy Number Effective Date Expira tion Date [place] - ABN [id number] ON DEMAND MEDICARE - [facility] BILLING - ABN [id number] Problems Condition Name Condition Details Condition Category [...] 2022-12 00:00: 00 12-07 23:59 :00 No [id number] 1 capsule DAILY 1 capsule DAILY (route: oral) Med Classific ation: Gastroint estinal Therapy Agents chlorpromaz ine 25 mg tablet 2022-12 2- 00:00: 00 12-07 23:59 :00 No [id number] 1 tablet EVERY AM 1 tablet EVERY AM (route: oral) Med Classific ation: Central Nervous System Agents clonazepam 0.25 mg disintegrat ing tablet 2022-12 00:00: 00 12-07 23:59 :00 No [id number] 1 tablet 3 TIMES DAILY 1 tablet 3 TIMES DAILY (route: oral) Med Classific ation: Central Nervous System Agents haloperidol 2 mg tablet 2022-12 00:00: 00 11-11 23:59 :00 No [id number] Per instruc tions AT BEDTIME Per instructio ns AT BEDTIME (route: oral) Med Classific ation: Central Nervous System Agents trazodone 50 mg tablet 2022-12 00:00: 00 12-08 23:59 :00 No [id number] 1 tablet AT BEDTIME MAY REPEAT ONE TIME NEEDED 1 tablet AT BEDTIME MAY REPEAT ONE TIME NEEDED (route: oral) Med Classific ation: Central Nervous System Agents ziprasidone 20 mg capsule 2022-12 00:00: 00 12-07 23:59 :00 No [id number] 1 capsule TWICE A DAY 1 capsule TWICE A DAY (route: oral) Med Classific ation: Central Nervous System Agents lamotrigine 100 mg tablet 2022-12 00:00: 00 11-11 23:59 :00 No [id number] Per instruc tions AT BEDTIME Per instructio ns AT BEDTIME (route: oral) Med Classific ation: Central Nervous System Agents lamotrigine 25 mg tablet 2022-12 00:00: 00 12-08 23:59 :00 No [id number] 12 tablet EVERY MORNING & 1 AT 7 PM 12 tablet EVERY MORNING & 1 AT 7 PM (route: oral) Med Classific ation: Central Nervous System Agents levothyroxi ne 125 mcg tablet 2022-12 00:00: 00 12-07 23:59 :00 No [id number] 1 tablet EVERY DAY 1 tablet EVERY DAY (route: oral) Med Classific ation: Endocrine simvastatin 40 mg tablet 2022-12 00:00: 00 12-08 23:59 :00 No [id number] 1 tablet AT BEDTIME DIRECTED 1 tablet AT BEDTIME DIRECTED (route: oral) Med Classific ation: Cardiovas cular Therapy Agents trihexyphen idyl 2 mg tablet 2022-12 00:00: 00 12-07 23:59 :00 No [id number] 1 tablet EVERY 1 tablet EVERY (route: oral) Med Classific ation: Central Nervous System Agents ziprasidone 80 mg capsule 2022-12 00:00: 00 12-07 23:59 :00 No [id number] 1 capsule TWICE A DAY 1 capsule TWICE A DAY (route: oral) Med Classific ation: Central Nervous System Agents calcium carbonate 250 mg-vitamin D3 3.125 mcg (125 unit) tablet 12-08 00:00: 00 01-31 23:59 :00 No [id number] 2 tablet NOON 2 tablet NOON (route: oral) Med Classific ation: Electroly te Balance-N utritiona l Products Centrum Silver Women 8 mg iron-400 mcg-50 mcg tablet 12-08 00:00: 00 09-24 23:59 :00 No [id number] 1 tablet NOON 1 tablet NOON (route: oral) Med Classific ation: Electroly te Balance-N utritiona l Products chlorpromaz ine 25 mg tablet 12-08 00:00: 00 02-17 23:59 :00 No [id number] 2-3 tablet 2 TIMES DAILY 2-3 tablet 2 TIMES DAILY (route: oral) Med Classific ation: Central Nervous System Agents clonazepam 0.5 mg disintegrat ing tablet 12-08 00:00: 00 12-08 23:59 :00 No [id number] 0.5 tablet 2 TIMES DAILY 0.5 tablet 2 TIMES DAILY (route: oral) Med Classific ation: Central Nervous System Agents CoQ-10 100 mg capsule 12-08 00:00: 00 09-24 23:59 :00 No [id number] 1 capsule NOON 1 capsule NOON (route: oral) Med Classific ation: Alternati ve Therapy lamotrigine 25 mg tablet 12-08 00:00: 00 23:59 :00 No [id number] 2 tablet BEDTIME 2 tablet BEDTIME (route: oral) Med Classific ation: Central Nervous System Agents levothyroxi ne 125 mcg tablet 12-08 00:00: 00 02-17 23:59 :00 No [id number] 1 tablet EVERY AM 1 tablet EVERY AM (route: oral) Med Classific ation: Endocrine omeprazole 20 mg capsule,del ayed release 12-08 00:00: 00 02-27 23:59 :00 No [id number] 1 capsule NOON 1 capsule NOON (route: oral) Med Classific ation: Gastroint estinal Therapy Agents simvastatin 40 mg tablet 12-08 00:00: 00 09-24 23:59 :00 No [id number] 1 tablet BEDTIME 1 tablet BEDTIME (route: oral) Med Classific ation: Cardiovas cular Therapy Agents trazodone 50 mg tablet 12-08 00:00: 00 09-24 23:59 :00 No [id number] 1 tablet BEDTIME 1 tablet BEDTIME (route: oral) Med Classific ation: Central Nervous System Agents trihexyphen idyl 2 mg tablet 12-08 00:00: 00 02-17 23:59 :00 No [id number] 1 tablet 2 TIMES DAILY 1 tablet 2 TIMES DAILY (route: oral) Med Classific ation: Central Nervous System Agents ziprasidone 20 mg capsule 12-08 00:00: 00 12-08 23:59 :00 No [id number] 1 capsule 2 TIMES DAILY 1 capsule 2 TIMES DAILY (route: oral) Med Classific ation: Central Nervous System Agents ziprasidone 80 mg capsule 12-08 00:00: 00 02-17 23:59 :00 No [id number] 1 capsule 2 TIMES DAILY 1 capsule 2 TIMES DAILY (route: oral) Med Classific ation: Central Nervous System Agents clonazepam 0.5 mg disintegrat ing tablet 1-08 00:00: 00 23:59 :00 No [id number] 0.5 tablet 3 TIMES DAILY 0.5 tablet 3 TIMES DAILY (route: oral) Med Classific ation: Central Nervous System Agents lamotrigine 100 mg tablet 1-08 00:00: 00 02-17 23:59 :00 No [id number] 2 tablet BEDTIME 2 tablet BEDTIME (route: oral) Med Classific ation: Central Nervous System Agents ziprasidone 20 mg capsule -08 00:00: 00 02-17 23:59 :00 No [id number] 1 capsule 2 TIMES DAILY 1 capsule 2 TIMES DAILY (route: oral) Med Classific ation: Central Nervous System Agents clonazepam 0.25 mg disintegrat ing tablet 2-14 00:00: 00 09-24 23:59 :00 No [id number] 1 tablet 3 TIMES DAILY 1 tablet 3 TIMES DAILY (route: oral) Med Classific ation: Central Nervous System Agents Vitamin C 1,000 mg tablet 2-14 00:00: 00 09-24 23:59 :00 No [id number] 1 tablet NOON 1 tablet NOON (route: oral) Med Classific ation: Electroly te Balance-N utritiona l Products Vitamin D3 25 mcg (1,000 unit) capsule 2-14 00:00: 00 09-24 23:59 :00 No [id number] 1 capsule NOON 1 capsule NOON (route: oral) Med Classific ation: Electroly te Balance-N utritiona l Products lamotrigine 25 mg tablet 3- 00:00: 00 09-24 23:59 :00 No [id number] 2 tablet 2 TIMES DAILY 2 tablet 2 TIMES DAILY (route: oral) Med Classific ation: Central Nervous System Agents calcium carbonate 600 mg calcium (1,500 mg) tablet 3-04 00:00: 09-24 23:59 :00 No [id number] 1 tablet NOON 1 tablet NOON (route: oral) Med Classific ation: Electroly te Balance-N utritiona l Products chlorpromaz ine 25 mg tablet 02-18 00:00: 00 09-24 23:59 :00 No [id number] 2 tablet EVERY AM 2 tablet EVERY AM (route: oral) Med Classific ation: Central Nervous System Agents chlorpromaz ine 25 mg tablet 02-18 00:00: 00 09-24 23:59 :00 No [id number] 3 tablet BEDTIME 3 tablet BEDTIME (route: oral) Med Classific ation: Central Nervous System Agents lamotrigine 100 mg tablet 02-18 00:00: 00 09-24 23:59 :00 No [id number] 2 tablet BEDTIME 2 tablet BEDTIME (route: oral) Med Classific ation: Central Nervous System Agents levothyroxi ne 125 mcg tablet 02-18 00:00: 00 09-24 23:59 :00 No [id number] 1 tablet EVERY AM 1 tablet EVERY AM (route: oral) Med Classific ation: Endocrine trihexyphen idyl 2 mg tablet 02-18 00:00: 00 09-24 23:59 :00 No [id number] 1 tablet EVERY AM 1 tablet EVERY AM (route: oral) Med Classific ation: Central Nervous System Agents ziprasidone 20 mg capsule 02-18 00:00: 00 09-24 23:59 :00 No [id number] 1 capsule 2 TIMES DAILY 1 capsule 2 TIMES DAILY (route: oral) Med Classific ation: Central Nervous System Agents ziprasidone 80 mg capsule 02-18 00:00: 00 09-24 23:59 :00 No [id number] 1 capsule 2 TIMES DAILY 1 capsule 2 TIMES DAILY (route: oral) Med Classific ation: Central Nervous System Agents Cipro 500 mg tablet - 00:00: 00 04-27 23:59 :00 No [id number] 1 tablet 2 TIMES DAILY 1 tablet 2 TIMES DAILY (route: oral) Med Classific ation: Anti-Infe ctive Agents metronidazo le 250 mg tablet 04-18 00:00: 00 04-27 23:59 :00 No [id number] 1 tablet 3 TIMES DAILY 1 tablet 3 TIMES DAILY (route: oral) Med Classific ation: Anti-Infe ctive Agents famotidine 20 mg tablet 2023-12 00:00: 00 09-24 23:59 :00 No [id number] 1 tablet DAILY 1 tablet DAILY (route: oral) Med Classific ation: Gastroint estinal Therapy Agents omeprazole 20 mg capsule,del ayed release 03-05 00:00: 00 09-24 23:59 :00 No [id number] 1 capsule 2 TIMES DAILY 1 capsule 2 TIMES DAILY (route: oral) Med Classific ation: Gastroint estinal Therapy Agents clindamycin HCl 300 mg capsule 05-13 00:00: 00 06-06 23:59 :00 No [id number] 1 capsule 3 TIMES DAILY 1 capsule 3 TIMES DAILY (route: oral) Med Classific ation: Anti-Infe ctive Agents oxycodone 5 mg capsule 05-13 00:00: 00 09-24 23:59 :00 No [id number] 5 mg EVERY 6 HOURS 5 mg EVERY 6 HOURS (route: oral) Med Classific ation: Analgesic , Anti-infl ammatory or Antipyret ic calcium carbonate 600 mg calcium (1,500 mg) tablet 2024-12 00:00: 00 Yes [id number] 1 tablet NOON 1 tablet NOON (route: oral) Med Classific ation: Electroly te Balance-N utritiona l Products Centrum Silver Women 8 mg iron-400 mcg-50 mcg tablet 2024-12 00:00: 00 Yes [id number] 1 tablet NOON 1 tablet NOON (route: oral) Med Classific ation: Electroly te Balance-N utritiona l Products chlorpromaz ine 25 mg tablet 2024-12 00:00: 00 Yes [id number] 2 tablet EVERY AM 2 tablet EVERY AM (route: oral) Med Classific ation: Central Nervous System Agents chlorpromaz ine 25 mg tablet 2024-12 00:00: 00 Yes [id number] 3 tablet BEDTIME 3 tablet BEDTIME (route: oral) Med Classific ation: Central Nervous System Agents clonazepam 0.25 mg disintegrat ing tablet 2024-12 00:00: 00 Yes [id number] 1 tablet 3 TIMES DAILY 1 tablet 3 TIMES DAILY (route: oral) Med Classific ation: Central Nervous System Agents CoQ-10 100 mg capsule 2024-12 00:00: 00 Yes [id number] 1 capsule NOON 1 capsule NOON (route: oral) Med Classific ation: Alternati ve Therapy famotidine 20 mg tablet 2024-12 00:00: 00 Yes [id number] 1 tablet EVERY PM 1 tablet EVERY PM (route: oral) Med Classific ation: Gastroint estinal Therapy Agents lamotrigine 100 mg tablet 2024-12 00:00: 00 Yes [id number] 2 tablet BEDTIME 2 tablet BEDTIME (route: oral) Med Classific ation: Central Nervous System Agents lamotrigine 25 mg tablet 2024-12 00:00: 00 Yes [id number] 2 tablet 2 TIMES DAILY 2 tablet 2 TIMES DAILY (route: oral) Med Classific ation: Central Nervous System Agents levothyroxi ne 125 mcg tablet 2024-12 00:00: 00 Yes [id number] 1 tablet EVERY AM 1 tablet EVERY AM (route: oral) Med Classific ation: Endocrine omeprazole 20 mg capsule,del ayed release 2024-12 00:00: 00 Yes [id number] 1 capsule 2 TIMES DAILY 1 capsule 2 TIMES DAILY (route: oral) Med Classific ation: Gastroint estinal Therapy Agents oxycodone 5 mg capsule 2024-12 00:00: 00 Yes [id number] 5 mg EVERY 6 HOURS 5 mg EVERY 6 HOURS (route: oral) Med Classific ation: Analgesic , Anti-infl ammatory or Antipyret ic simvastatin 40 mg tablet 2024-12 00:00: 00 Yes [id number] 1 tablet BEDTIME 1 tablet BEDTIME (route: oral) Med Classific ation: Cardiovas cular Therapy Agents trazodone 50 mg tablet 2024-12 00:00: 00 Yes [id number] 1 tablet BEDTIME 1 tablet BEDTIME (route: oral) Med Classific ation: Central Nervous System Agents trihexyphen idyl 2 mg tablet 2024-12 00:00: 00 Yes [id number] 1 tablet EVERY AM 1 tablet EVERY AM (route: oral) Med Classific ation: Central Nervous System Agents Vitamin C 1,000 mg tablet 2024-12 00:00: 00 Yes [id number] 1 tablet NOON 1 tablet NOON (route: oral) Med Classific ation: Electroly te Balance-N utritiona l Products Vitamin D3 25 mcg (1,000 unit) tablet 2024-12 00:00: 00 Yes [id number] 1 tablet NOON 1 tablet NOON (route: oral) Med Classific ation: Electroly te Balance-N utritiona l Products ziprasidone 20 mg capsule 2024-12 00:00: 00 Yes [id number] 1 capsule 2 TIMES DAILY 1 capsule 2 TIMES DAILY (route: oral) Med Classific ation: Central Nervous System Agents ziprasidone 80 mg capsule 2024-12 00:00: 00 Yes [id number] 1 capsule 2 TIMES DAILY 1 capsule [...] AWARENESS FOR SAFETY AND WILL NOTIFY CLINICAL COMPRESSOR MECHANIC BUS AND PHYSICIAN/PROVIDER WITH ANY CHANGE IN CONDITION. [code = SKILLED NURSE WILL MAINTAIN SITUATIONAL AWARENESS FOR SAFETY AND WILL NOTIFY CLINICAL COMPRESSOR MECHANIC BUS AND PHYSICIAN/PROVIDER WITH ANY CHANGE IN CONDITION.] [...] CARE WILL BE ESTABLISHED THAT MEETS PATIENT'S LONGTERM NEEDS AND INCLUDES PATIENT GOAL FOR HOME [...] SELF AND OTHERS THROUGHOUT THE CERTIFICATION PERIOD. Encounters Start Date/Time End Date/Time Encounter Type Admission Type Attending [facility] Care Department Encounter ID Discharge Date Discharge Status Discharge Condition Discharge Reason Percent Goals Met 2025-09-01 00:00:00 2025-10-30 00:00:00 Outpatient RECERTIFIC HEIDI TONY [facility] [id number]
--- OUTSIDE RECORDS SUMMARY | 2025-10-29 19:00 | XMS_ITS | Clinical Summary ---
Author Organization Unknown Care Team Providers Care Flying Instructor Name Role Phone ALPESH NOBLE, JENNIFER Unavailable Unavailable ROM PT, SANDRA Unavailable Unavailable LUIS HERMAN, HEIDI Unavailable Unavailable ARELY FELDERW, JANA Unavailable Unavailable Payers Payer Name Policy Type Policy Number Effective Date Expira tion Date [place] - ABN [id number] ON DEMAND MEDICARE - [facility] BILLING - ABN [id number] Problems Condition Name Condition Details Condition Category [...] 2022-12 00:00: 00 12-07 23:59 :00 No [id number] 1 capsule DAILY 1 capsule DAILY (route: oral) Med Classific ation: Gastroint estinal Therapy Agents chlorpromaz ine 25 mg tablet 2022-12 2- 00:00: 00 12-07 23:59 :00 No [id number] 1 tablet EVERY AM 1 tablet EVERY AM (route: oral) Med Classific ation: Central Nervous System Agents clonazepam 0.25 mg disintegrat ing tablet 2022-12 00:00: 00 12-07 23:59 :00 No [id number] 1 tablet 3 TIMES DAILY 1 tablet 3 TIMES DAILY (route: oral) Med Classific ation: Central Nervous System Agents haloperidol 2 mg tablet 2022-12 00:00: 00 11-11 23:59 :00 No [id number] Per instruc tions AT BEDTIME Per instructio ns AT BEDTIME (route: oral) Med Classific ation: Central Nervous System Agents trazodone 50 mg tablet 2022-12 00:00: 00 12-08 23:59 :00 No [id number] 1 tablet AT BEDTIME MAY REPEAT ONE TIME NEEDED 1 tablet AT BEDTIME MAY REPEAT ONE TIME NEEDED (route: oral) Med Classific ation: Central Nervous System Agents ziprasidone 20 mg capsule 2022-12 00:00: 00 12-07 23:59 :00 No [id number] 1 capsule TWICE A DAY 1 capsule TWICE A DAY (route: oral) Med Classific ation: Central Nervous System Agents lamotrigine 100 mg tablet 2022-12 00:00: 00 11-11 23:59 :00 No [id number] Per instruc tions AT BEDTIME Per instructio ns AT BEDTIME (route: oral) Med Classific ation: Central Nervous System Agents lamotrigine 25 mg tablet 2022-12 00:00: 00 12-08 23:59 :00 No [id number] 12 tablet EVERY MORNING & 1 AT 7 PM 12 tablet EVERY MORNING & 1 AT 7 PM (route: oral) Med Classific ation: Central Nervous System Agents levothyroxi ne 125 mcg tablet 2022-12 00:00: 00 12-07 23:59 :00 No [id number] 1 tablet EVERY DAY 1 tablet EVERY DAY (route: oral) Med Classific ation: Endocrine simvastatin 40 mg tablet 2022-12 00:00: 00 12-08 23:59 :00 No [id number] 1 tablet AT BEDTIME DIRECTED 1 tablet AT BEDTIME DIRECTED (route: oral) Med Classific ation: Cardiovas cular Therapy Agents trihexyphen idyl 2 mg tablet 2022-12 00:00: 00 12-07 23:59 :00 No [id number] 1 tablet EVERY 1 tablet EVERY (route: oral) Med Classific ation: Central Nervous System Agents ziprasidone 80 mg capsule 2022-12 00:00: 00 12-07 23:59 :00 No [id number] 1 capsule TWICE A DAY 1 capsule TWICE A DAY (route: oral) Med Classific ation: Central Nervous System Agents calcium carbonate 250 mg-vitamin D3 3.125 mcg (125 unit) tablet 12-08 00:00: 00 01-31 23:59 :00 No [id number] 2 tablet NOON 2 tablet NOON (route: oral) Med Classific ation: Electroly te Balance-N utritiona l Products Centrum Silver Women 8 mg iron-400 mcg-50 mcg tablet 12-08 00:00: 00 09-24 23:59 :00 No [id number] 1 tablet NOON 1 tablet NOON (route: oral) Med Classific ation: Electroly te Balance-N utritiona l Products chlorpromaz ine 25 mg tablet 12-08 00:00: 00 02-17 23:59 :00 No [id number] 2-3 tablet 2 TIMES DAILY 2-3 tablet 2 TIMES DAILY (route: oral) Med Classific ation: Central Nervous System Agents clonazepam 0.5 mg disintegrat ing tablet 12-08 00:00: 00 12-08 23:59 :00 No [id number] 0.5 tablet 2 TIMES DAILY 0.5 tablet 2 TIMES DAILY (route: oral) Med Classific ation: Central Nervous System Agents CoQ-10 100 mg capsule 12-08 00:00: 00 09-24 23:59 :00 No [id number] 1 capsule NOON 1 capsule NOON (route: oral) Med Classific ation: Alternati ve Therapy lamotrigine 25 mg tablet 12-08 00:00: 00 23:59 :00 No [id number] 2 tablet BEDTIME 2 tablet BEDTIME (route: oral) Med Classific ation: Central Nervous System Agents levothyroxi ne 125 mcg tablet 12-08 00:00: 00 02-17 23:59 :00 No [id number] 1 tablet EVERY AM 1 tablet EVERY AM (route: oral) Med Classific ation: Endocrine omeprazole 20 mg capsule,del ayed release 12-08 00:00: 00 02-27 23:59 :00 No [id number] 1 capsule NOON 1 capsule NOON (route: oral) Med Classific ation: Gastroint estinal Therapy Agents simvastatin 40 mg tablet 12-08 00:00: 00 09-24 23:59 :00 No [id number] 1 tablet BEDTIME 1 tablet BEDTIME (route: oral) Med Classific ation: Cardiovas cular Therapy Agents trazodone 50 mg tablet 12-08 00:00: 00 09-24 23:59 :00 No [id number] 1 tablet BEDTIME 1 tablet BEDTIME (route: oral) Med Classific ation: Central Nervous System Agents trihexyphen idyl 2 mg tablet 12-08 00:00: 00 02-17 23:59 :00 No [id number] 1 tablet 2 TIMES DAILY 1 tablet 2 TIMES DAILY (route: oral) Med Classific ation: Central Nervous System Agents ziprasidone 20 mg capsule 12-08 00:00: 00 12-08 23:59 :00 No [id number] 1 capsule 2 TIMES DAILY 1 capsule 2 TIMES DAILY (route: oral) Med Classific ation: Central Nervous System Agents ziprasidone 80 mg capsule 12-08 00:00: 00 02-17 23:59 :00 No [id number] 1 capsule 2 TIMES DAILY 1 capsule 2 TIMES DAILY (route: oral) Med Classific ation: Central Nervous System Agents clonazepam 0.5 mg disintegrat ing tablet 1-08 00:00: 00 23:59 :00 No [id number] 0.5 tablet 3 TIMES DAILY 0.5 tablet 3 TIMES DAILY (route: oral) Med Classific ation: Central Nervous System Agents lamotrigine 100 mg tablet 1-08 00:00: 00 02-17 23:59 :00 No [id number] 2 tablet BEDTIME 2 tablet BEDTIME (route: oral) Med Classific ation: Central Nervous System Agents ziprasidone 20 mg capsule -08 00:00: 00 02-17 23:59 :00 No [id number] 1 capsule 2 TIMES DAILY 1 capsule 2 TIMES DAILY (route: oral) Med Classific ation: Central Nervous System Agents clonazepam 0.25 mg disintegrat ing tablet 2-14 00:00: 00 09-24 23:59 :00 No [id number] 1 tablet 3 TIMES DAILY 1 tablet 3 TIMES DAILY (route: oral) Med Classific ation: Central Nervous System Agents Vitamin C 1,000 mg tablet 2-14 00:00: 00 09-24 23:59 :00 No [id number] 1 tablet NOON 1 tablet NOON (route: oral) Med Classific ation: Electroly te Balance-N utritiona l Products Vitamin D3 25 mcg (1,000 unit) capsule 2-14 00:00: 00 09-24 23:59 :00 No [id number] 1 capsule NOON 1 capsule NOON (route: oral) Med Classific ation: Electroly te Balance-N utritiona l Products lamotrigine 25 mg tablet 3- 00:00: 00 09-24 23:59 :00 No [id number] 2 tablet 2 TIMES DAILY 2 tablet 2 TIMES DAILY (route: oral) Med Classific ation: Central Nervous System Agents calcium carbonate 600 mg calcium (1,500 mg) tablet 3-04 00:00: 09-24 23:59 :00 No [id number] 1 tablet NOON 1 tablet NOON (route: oral) Med Classific ation: Electroly te Balance-N utritiona l Products chlorpromaz ine 25 mg tablet 02-18 00:00: 00 09-24 23:59 :00 No [id number] 2 tablet EVERY AM 2 tablet EVERY AM (route: oral) Med Classific ation: Central Nervous System Agents chlorpromaz ine 25 mg tablet 02-18 00:00: 00 09-24 23:59 :00 No [id number] 3 tablet BEDTIME 3 tablet BEDTIME (route: oral) Med Classific ation: Central Nervous System Agents lamotrigine 100 mg tablet 02-18 00:00: 00 09-24 23:59 :00 No [id number] 2 tablet BEDTIME 2 tablet BEDTIME (route: oral) Med Classific ation: Central Nervous System Agents levothyroxi ne 125 mcg tablet 02-18 00:00: 00 09-24 23:59 :00 No [id number] 1 tablet EVERY AM 1 tablet EVERY AM (route: oral) Med Classific ation: Endocrine trihexyphen idyl 2 mg tablet 02-18 00:00: 00 09-24 23:59 :00 No [id number] 1 tablet EVERY AM 1 tablet EVERY AM (route: oral) Med Classific ation: Central Nervous System Agents ziprasidone 20 mg capsule 02-18 00:00: 00 09-24 23:59 :00 No [id number] 1 capsule 2 TIMES DAILY 1 capsule 2 TIMES DAILY (route: oral) Med Classific ation: Central Nervous System Agents ziprasidone 80 mg capsule 02-18 00:00: 00 09-24 23:59 :00 No [id number] 1 capsule 2 TIMES DAILY 1 capsule 2 TIMES DAILY (route: oral) Med Classific ation: Central Nervous System Agents Cipro 500 mg tablet - 00:00: 00 04-27 23:59 :00 No [id number] 1 tablet 2 TIMES DAILY 1 tablet 2 TIMES DAILY (route: oral) Med Classific ation: Anti-Infe ctive Agents metronidazo le 250 mg tablet 04-18 00:00: 00 04-27 23:59 :00 No [id number] 1 tablet 3 TIMES DAILY 1 tablet 3 TIMES DAILY (route: oral) Med Classific ation: Anti-Infe ctive Agents famotidine 20 mg tablet 2023-12 00:00: 00 09-24 23:59 :00 No [id number] 1 tablet DAILY 1 tablet DAILY (route: oral) Med Classific ation: Gastroint estinal Therapy Agents omeprazole 20 mg capsule,del ayed release 03-05 00:00: 00 09-24 23:59 :00 No [id number] 1 capsule 2 TIMES DAILY 1 capsule 2 TIMES DAILY (route: oral) Med Classific ation: Gastroint estinal Therapy Agents clindamycin HCl 300 mg capsule 05-13 00:00: 00 06-06 23:59 :00 No [id number] 1 capsule 3 TIMES DAILY 1 capsule 3 TIMES DAILY (route: oral) Med Classific ation: Anti-Infe ctive Agents oxycodone 5 mg capsule 05-13 00:00: 00 09-24 23:59 :00 No [id number] 5 mg EVERY 6 HOURS 5 mg EVERY 6 HOURS (route: oral) Med Classific ation: Analgesic , Anti-infl ammatory or Antipyret ic calcium carbonate 600 mg calcium (1,500 mg) tablet 2024-12 00:00: 00 Yes [id number] 1 tablet NOON 1 tablet NOON (route: oral) Med Classific ation: Electroly te Balance-N utritiona l Products Centrum Silver Women 8 mg iron-400 mcg-50 mcg tablet 2024-12 00:00: 00 Yes [id number] 1 tablet NOON 1 tablet NOON (route: oral) Med Classific ation: Electroly te Balance-N utritiona l Products chlorpromaz ine 25 mg tablet 2024-12 00:00: 00 Yes [id number] 2 tablet EVERY AM 2 tablet EVERY AM (route: oral) Med Classific ation: Central Nervous System Agents chlorpromaz ine 25 mg tablet 2024-12 00:00: 00 Yes [id number] 3 tablet BEDTIME 3 tablet BEDTIME (route: oral) Med Classific ation: Central Nervous System Agents clonazepam 0.25 mg disintegrat ing tablet 2024-12 00:00: 00 Yes [id number] 1 tablet 3 TIMES DAILY 1 tablet 3 TIMES DAILY (route: oral) Med Classific ation: Central Nervous System Agents CoQ-10 100 mg capsule 2024-12 00:00: 00 Yes [id number] 1 capsule NOON 1 capsule NOON (route: oral) Med Classific ation: Alternati ve Therapy famotidine 20 mg tablet 2024-12 00:00: 00 Yes [id number] 1 tablet EVERY PM 1 tablet EVERY PM (route: oral) Med Classific ation: Gastroint estinal Therapy Agents lamotrigine 100 mg tablet 2024-12 00:00: 00 Yes [id number] 2 tablet BEDTIME 2 tablet BEDTIME (route: oral) Med Classific ation: Central Nervous System Agents lamotrigine 25 mg tablet 2024-12 00:00: 00 Yes [id number] 2 tablet 2 TIMES DAILY 2 tablet 2 TIMES DAILY (route: oral) Med Classific ation: Central Nervous System Agents levothyroxi ne 125 mcg tablet 2024-12 00:00: 00 Yes [id number] 1 tablet EVERY AM 1 tablet EVERY AM (route: oral) Med Classific ation: Endocrine omeprazole 20 mg capsule,del ayed release 2024-12 00:00: 00 Yes [id number] 1 capsule 2 TIMES DAILY 1 capsule 2 TIMES DAILY (route: oral) Med Classific ation: Gastroint estinal Therapy Agents oxycodone 5 mg capsule 2024-12 00:00: 00 Yes [id number] 5 mg EVERY 6 HOURS 5 mg EVERY 6 HOURS (route: oral) Med Classific ation: Analgesic , Anti-infl ammatory or Antipyret ic simvastatin 40 mg tablet 2024-12 00:00: 00 Yes [id number] 1 tablet BEDTIME 1 tablet BEDTIME (route: oral) Med Classific ation: Cardiovas cular Therapy Agents trazodone 50 mg tablet 2024-12 00:00: 00 Yes [id number] 1 tablet BEDTIME 1 tablet BEDTIME (route: oral) Med Classific ation: Central Nervous System Agents trihexyphen idyl 2 mg tablet 2024-12 00:00: 00 Yes [id number] 1 tablet EVERY AM 1 tablet EVERY AM (route: oral) Med Classific ation: Central Nervous System Agents Vitamin C 1,000 mg tablet 2024-12 00:00: 00 Yes [id number] 1 tablet NOON 1 tablet NOON (route: oral) Med Classific ation: Electroly te Balance-N utritiona l Products Vitamin D3 25 mcg (1,000 unit) tablet 2024-12 00:00: 00 Yes [id number] 1 tablet NOON 1 tablet NOON (route: oral) Med Classific ation: Electroly te Balance-N utritiona l Products ziprasidone 20 mg capsule 2024-12 00:00: 00 Yes [id number] 1 capsule 2 TIMES DAILY 1 capsule 2 TIMES DAILY (route: oral) Med Classific ation: Central Nervous System Agents ziprasidone 80 mg capsule 2024-12 00:00: 00 Yes [id number] 1 capsule 2 TIMES DAILY 1 capsule [...] AWARENESS FOR SAFETY AND WILL NOTIFY CLINICAL CLARIFIER AND PHYSICIAN/PROVIDER WITH ANY CHANGE IN CONDITION. [code = SKILLED NURSE WILL MAINTAIN SITUATIONAL AWARENESS FOR SAFETY AND WILL NOTIFY CLINICAL CLARIFIER AND PHYSICIAN/PROVIDER WITH ANY CHANGE IN CONDITION.] [...] CARE WILL BE ESTABLISHED THAT MEETS PATIENT'S FPC NEEDS AND INCLUDES PATIENT GOAL FOR HOME [...] End Date/Time Encounter Type Admission Type Attending [facility] Care Department Encounter ID Discharge Date Discharge Status Discharge Condition Discharge Reason Percent Goals Met 2025-09-01 00:00:00 2025-10-30 00:00:00 Outpatient RECERTIFIC HEIDI TONY [facility] [id number] 5.71
== END 2025-10-05 22:36 | disposition home or self-care (01) ==
PROVIDERS: Physician Assistant; Emergency Provider Emergency Medicine; PCP Internal Medicine
DX: R51.9 Headache, unspecified (principal); F07.81 Postconcussional syndrome; Z03.818 Encounter for observation for suspected exposure to other biological agents ruled out; N18.9 Chronic kidney disease, unspecified; K21.9 Gastro-esophageal reflux disease without esophagitis; E78.5 Hyperlipidemia, unspecified; F41.9 Anxiety disorder, unspecified; Z79.899 Other long term (current) drug therapy; Z87.891 Personal history of nicotine dependence; Z91.81 History of falling
CPT/HCPCS: 80053; 85025; 87502; 87635; 99283; 99284

== ENCOUNTER 2025-10-14 10:12 | Emergency (ER) | payer MEDICARE, MEDICAID, SELFPAY ==
--- NOTE | ~2025-10-14 | CT_ITS ---
EXAMINATION: CT HEAD WITHOUT CONTRAST CLINICAL INFORMATION: ESCALERA COMPARISON: October 04, 2025. TECHNIQUE: Contiguous axial imaging was performed from the skull base to vertex without intravenous administration of contrast. This CT examination was performed using dose optimization techniques as appropriate, variously including the following: *Automated exposure control *Adjustment of mA and/or kV according to patient size (this includes techniques or standardized protocols for targeted exams where dose is matched to indication/reason for exam; i.e. extremities or head) *Use of iterative reconstruction technique DLP: 711 mGy-cm FINDINGS: No acute fracture in the bony calvarium or the skull base. No acute intracranial hemorrhage, mass effect, midline shift, hydrocephalus or herniation. De León-white matter differentiation is normal. Confluent hypodensity left occipital lobe resulting in ex vacuo dilatation of the occipital horn left lateral ventricle. Craniocervical junction is intact with normal position of the cerebellar tonsils. Sellar/suprasellar region demonstrated the no gross masses. Posterior cranial fossa contents demonstrated the CSF prominence in the premesencephalic cisterns with a hummingbird morphology pattern of the midbrain in the sagittal plane. No air-fluid levels in the paranasal sinuses. Tympanic cavities are aerated. Poor pneumatization right mastoid air cells. Left mastoid cells are aerated. CT/CT head/brain wo IV con IMPRESSION: No acute intracranial hemorrhage or acute brain abnormality by CT. Prior vascular insult, left CABLE OPERATOR territory. Consider Progressive supranuclear palsy in the correct clinical settings. Electronically signed by: Michoacano Sparrow MD 10/14/2025 11:33 AM [facility]
[2025-10-14 10:25] VITALS: BP 108/75; BP 160/100; PULSE 87; PULSE 88; RESP 16; TEMP 36.6; O2SAT 96; O2SAT 98; BMI 24.8
--- NOTE | 2025-10-14 11:03 | ED.GENADULT ---
HPI - General Adult General Chief complaint: General Medical Stated complaint: recurring concussion symptoms Time Seen by Provider: 10/14/25 10:55 Source: patient Mode of arrival: EMS Limitations: no limitations History of Present Illness HPI narrative: This is a 65 years old female patient presented to the emergency department complaining of dizziness headache nausea. She was seen initially on October 04 after a fall she had a head CT which was negative, then she came back in the next day October 05 she was diagnosed with postconcussion syndrome today she returns because of the persistent dizziness. She has no fever or chills no vomiting Onset (ago): day(s) () Location: head Radiation: non-radiation Severity: mild Quality: burning Pain Consistency: constant Associated symptoms: denies other symptoms Related Data Home Medications ?Medication ?Instructions ?Recorded ?Confirmed clonazepam 0.25 mg disintegrating 0.25 mg PO TID PRN anxiety 05/16/24 05/16/24 tablet famotidine 20 mg tablet 20 mg PO BEDTIME Acid Reflux 05/16/24 05/19/24 lamotrigine 200 mg tablet 200 mg PO BEDTIME 05/16/24 05/16/24 lamotrigine 25 mg tablet 50 mg PO BID 05/16/24 05/19/24 omeprazole 20 mg capsule,delayed 20 mg PO DAILY 05/16/24 05/16/24 release ascorbic acid (vitamin C) 1,000 mg 1,000 mg PO DAILY 05/19/24 05/19/24 tablet (Vitamin C) calcium carbonate 600 mg PO DAILY 05/19/24 05/19/24 cholecalciferol (vitamin D3) 25 25 mcg PO DAILY 05/19/24 05/19/24 mcg (1,000 unit) capsule (Vitamin D3) coenzyme Q10 100 mg capsule 100 mg PO DAILY 05/19/24 05/19/24 (CoQ-10) oqohvilz-gueq-jgir 8 mg-folic 400 1 tab PO DAILY 05/19/24 05/19/24 mcg-K 50 mcg-lutein 300 mcg tablet (Centrum Silver Women) Previous Rx's ?Medication ?Instructions ?Recorded chlorpromazine 25 mg tablet 50 mg (2 x 25 mg) PO DAILY 30 days 12/02/23 #60 tabs chlorpromazine 25 mg tablet 75 mg (3 x 25 mg) PO BEDTIME 30 12/02/23 days #90 tabs levothyroxine 125 mcg tablet 125 mcg PO DAILY@0600 30 days #30 12/02/23 tabs simvastatin 40 mg tablet 40 mg PO BEDTIME 30 days #30 tabs 12/02/23 trazodone 50 mg tablet 50 mg PO BEDTIME PRN Insomnia 30 12/02/23 days #30 tabs trihexyphenidyl 2 mg tablet 2 mg PO QAM 30 days #30 tabs 12/02/23 ziprasidone HCl 20 mg capsule 20 mg PO BIDWM 30 days #60 caps 12/02/23 ziprasidone HCl 80 mg capsule 80 mg PO BIDWM 30 days #60 caps 12/02/23 lidocaine 5 % topical patch 1 patch topical DAILY #15 ea 06/27/25 (Lidoderm) ondansetron 4 mg disintegrating 4 mg PO Q8H PRN nausea and 06/29/25 tablet vomiting #20 tabs ondansetron 4 mg disintegrating 4 mg PO Q8H PRN nausea and 07/04/25 tablet vomiting #10 tabs Allergies Allergy/AdvReac Type Severity Reaction Status Date / Time Penicillins (PENICILLINS) Allergy Severe HIVES Verified 10/14/25 10:28 sulfamethoxazole (From Allergy Severe DIARRHEA Verified 10/14/25 10:28 BACTRIM) trimethoprim (From BACTRIM) Allergy Severe DIARRHEA Verified 10/14/25 10:28 aripiprazole (From ABILIFY) Allergy Intermediate ATAXIA Verified 10/14/25 10:28 aspirin (ASPIRIN) Allergy Intermediate STOMACH Verified 10/14/25 10:28 CRAMPS benztropine (From COGENTIN) Allergy Intermediate CONFUSION, Verified 10/14/25 10:28 memory loss bupropion (BUPROPION) Allergy Intermediate DIZZINESS Verified 10/14/25 10:28 erythromycin base Allergy Intermediate GI UPSET Verified 10/14/25 10:28 (ERYTHROMYCIN BASE) ibuprofen (From MOTRIN) Allergy Intermediate STOMACH Verified 10/14/25 10:28 CRAMPS olanzapine (From ZYPREXA) Allergy Intermediate TONGUE Verified 10/14/25 10:28 MOVEMENTS perphenazine (From TRILAFON) Allergy Intermediate ARM AND Verified 10/14/25 10:28 LEG MOVEMENTS, FALL risperidone (From RISPERDAL) Allergy Intermediate TONGUE Verified 10/14/25 10:28 MOVEMENT milk Allergy Drowsy Verified 10/05/25 17:26 egg AdvReac Stomach Verified 10/05/25 17:26 Upset From INDERAL Allergy Intermediate WHEEZING Uncoded 10/05/25 17:26 Review of Systems Constitutional: Constitutional: Reports no additional constitutional complaints Cardiovascular: Cardiovascular: Reports no additional cardiovascular complaints Gastrointestinal: Gastrointestinal: Reports no additional gastrointestinal complaints [facility] Past Medical History Attestation statement: The following information was validated with the patient. Medical History Routine medical exam CKD (chronic kidney disease), stage IV Bipolar disorder Neck pain Murmur GERD (gastroesophageal reflux disease) Hypothyroidism Irritable bowel syndrome (IBS) Hyperlipidemia Anxiety and depression Dissociative identity disorder Surgical History Hx of colonoscopy History of total thyroidectomy Social History Social History Household Members: None Household Members Other:: roommate Housing: Apartment Are you a primary professional healthcare representative to a significant other at home: No Do you presently have visiting nurse or other home services: Yes (pt has VNA for only one day prior to admission.) Alcohol intake: never Comment: aware of trip hazard Patient Tobacco Use Status: Former Tobacco user Tobacco use type: Cigarette Cigarette Packs Per Day: 1 Cigarettes Per Day: 20.0 Years Smoked: 20 e-Cigarette/Vaping Use: Never Used Second Hand Smoke Exposure: No service: No Sexual orientation: Did not discuss Physical Exam ED Exam Exam: No acute distress comfortable in the stretcher Vital Signs: Vital Signs - 24 hr 10/14/25 10:25 10/14/25 12:07 10/14/25 14:31 Temperature 97.9 F 97.8 F 97.8 F Pulse Rate 87 87 87 Respiratory Rate 16 17 17 Blood Pressure 108/75 116/71 116/71 Pulse Oximetry 96 97 97 Oxygen Delivery Method Room Air Room Air Room Air BMI result Body Mass Index 24.8 Vital signs stable Const General: cooperative Nutritional Appearance: well nourished Orientation/consciousness: patient oriented x3 HENMT Head: Yes normal to inspection Ears: hearing grossly normal bilaterally General nose exam: Normal external nose present Mouth: Normal oral and palatal mucosa present Neck Neck: Yes normal visual inspection Chest Chest palpation & inspection: normal inspection of the chest Resp Effort & Inspection: normal respiratory effort Cardio Jugular venous distension: no JVD Rate: regular rate Rhythm: regular rhythm GI Inspection: Yes normal to inspection Palpation (GI): Soft to palpation, not firm, nontender and no guarding Auscultation: normal bowel sounds Skin General skin exam: no rashes or lesions noted, elasticity normal and turgor normal Lesions: no lesions Rashes: no rashes Trauma: no lacerations or abrasions Neuro General: patient oriented x3 Course Reevaluation(s) Reevaluation #1: CT shows no subdural no acute pathology I think at this point she can be discharged home labs at baseline she does have chronic renal insufficiency Time: 14:13 Medical Decision Making Medical Decision Making [facility] Narrative: Patient is here with dizziness and headache status post fall 10 days ago I think it is reasonable to check routine blood work and perhaps do another head ct ;I agree that most likely she has a postconcussion syndrome Differential Diagnosis Differential Diagnoses: The differential diagnosis associated with the presentation includes Viral syndrome/postconcussion syndrome/subdural hematoma Lab Data 10/14/25 11:48 10/14/25 11:48 Labs: Lab Results 10/14/25 Range/Units 11:48 WBC 6.8 (4.8-10.8) X10*3/uL RBC 4.38 (4.20-5.50) X10*6/uL Hgb 13.4 (12.0-16.0) g/dl Hct 39.0 (37.0-47.0) % MCV 89.0 (80.0-98.0) fL MCH 30.6 (27.0-33.0) pg MCHC 34.4 (31.0-35.0) g/dl RDW 11.9 (11.0-16.0) % Plt Count 190 (160-400) X10*3/uL MPV 8.5 L (9.4-12.3) fL Immature Gran % (Auto) 0.6 H (0.0-0.4) % Neut % (Auto) 74.6 H (45-73) % Lymph % (Auto) 18.8 L (20-40) % [place] % (Auto) 5.7 (2-11) % Eos % (Auto) 0.0 (0-4) % Baso % (Auto) 0.3 (0-2) % Lymph # (Auto) 1.3 (1.2-4.9) X10*3/uL [place] # (Auto) 0.4 (0.1-1.2) X10*3/uL Eos # (Auto) 0.0 (0.0-0.4) X10*3/uL Baso # (Auto) 0.0 (0.0-0.2) X10*3/uL Abs Immat Gran (auto) 0.04 H (0.00-0.03) X10*3/uL Absolute Neuts (auto) 5.1 (2.0-8.3) x10*3/uL Absolute Nucleated RBC 0.000 (0.0-0.012) X10*3/uL Nucleated RBC % (auto) 0.0 (0.0-0.2) /100WBC Sodium 146 H (135-145) mmol/L Potassium 4.1 (3.3-5.1) mmol/L Chloride 109 H (96-108) mmol/L Carbon Dioxide 28 (22-29) mmol/L Anion Gap 13 (12-20) BUN 25 H (9-16) mg/dL Creatinine 1.88 H (0.5-1.4) mg/dL Estim Creat Clear Calc 26.0 Estimated GFR 27 Random Glucose 81 (60-115) mg/dL Calcium 10.4 H (8.4-10.2) mg/dL Total Bilirubin 0.5 (0.0-1.0) mg/dL AST 30 (5-31) U/L ALT 33 H (0-31) U/L Alkaline Phosphatase 45 (39-117) U/L Total Protein 7.3 (6.5-8.0) g/dL Albumin 5.0 (3.5-5.0) g/dL Discharge Plan Discharge Clinical Impression: Postconcussional syndrome Chronic renal failure Qualifiers: Chronic kidney disease stage: unspecified stage Qualified Code(s): N18.9 - Chronic kidney disease, unspecified Patient Disposition: Home, Self-Care Additional Instructions: Follow-up with neurology rest return also follow-up with your primary care physician Prescriptions: No Action trazodone 50 mg Tablet 50 mg PO BEDTIME PRN (Reason: Insomnia) 30 Days Qty: 30 0RF ziprasidone HCl 80 mg capsule 80 mg PO BIDWM 30 Days Qty: 60 0RF simvastatin 40 mg tablet 40 mg PO BEDTIME 30 Days Qty: 30 0RF ziprasidone HCl 20 mg Capsule 20 mg PO BIDWM 30 Days Qty: 60 0RF Rx Instructions: give with food (meal/snack) chlorpromazine 25 mg Tablet 50 mg PO DAILY 30 Days Qty: 60 0RF chlorpromazine 25 mg Tablet 75 mg PO BEDTIME 30 Days Qty: 90 0RF levothyroxine 125 mcg Tablet 125 mcg PO DAILY@0600 30 Days Qty: 30 0RF trihexyphenidyl 2 mg tablet 2 mg PO QAM 30 Days Qty: 30 0RF lamotrigine 25 mg tablet 50 mg PO BID famotidine 20 mg tablet 20 mg PO BEDTIME omeprazole 20 mg capsule,delayed release(DR/EC) 20 mg PO DAILY lamotrigine 200 mg tablet 200 mg PO BEDTIME clonazepam 0.25 mg tablet,disintegrating 0.25 mg PO TID PRN (Reason: anxiety) ascorbic acid (vitamin C) [Vitamin C] 1,000 mg Tablet 1,000 mg PO DAILY calcium carbonate 600 mg calcium (1,500 mg) Tablet 600 mg PO DAILY cholecalciferol (vitamin D3) [Vitamin D3] 25 mcg (1,000 unit) Capsule 25 mcg PO DAILY coenzyme Q10 [CoQ-10] 100 mg Capsule 100 mg PO DAILY Centrum Silver Women 8 mg iron-400 mcg-50 mcg Tablet 1 tab PO DAILY lidocaine [Lidoderm] 5 % adhesive patch,medicated 1 patch topical DAILY Qty: 15 0RF Rx Instructions: leave on most painful area for up to 12 hrs ondansetron 4 mg tablet,disintegrating 4 mg PO Q8H PRN (Reason: nausea and vomiting) Qty: 10 0RF ondansetron 4 mg tablet,disintegrating 4 mg PO Q8H PRN (Reason: nausea and vomiting) Qty: 20 0RF Referrals: Selena Groves MD [Physician, Neurology] - 10/19/25 Interventions: ED Discharge Assessment Last Done: 10/14/25 14:31 Discharge Date/Time: 10/14/25 14:32 Print Language: Chadian
[2025-10-14 11:53] LABS: MANUAL DIFF FLAG NO
[2025-10-14 11:58] LABS: Hematocrit 39.0 % (37.0-47.0); Hemoglobin 13.4 g/dl (12.0-16.0); Imm Gran Abs Auto 0.04 X10*3/uL (0.00-0.03); Imm Gran Pct Auto 0.6 % (0.0-0.4); Lymphocytes Absolute Auto 1.3 X10*3/uL (1.2-4.9); Mean Corpuscular HGB Conc 34.4 g/dl (31.0-35.0); Mean Corpuscular Hemoglobin 30.6 pg (27.0-33.0); Mean Corpuscular Volume 89.0 fL (80.0-98.0); NRBC Abs Auto 0.000 X10*3/uL (0.0-0.012); NRBC Pct Auto 0.0 /100WBC (0.0-0.2); Platelet Count 190 X10*3/uL (160-400); Red Blood Count 4.38 X10*6/uL (4.20-5.50); White Blood Count 6.8 X10*3/uL (4.8-10.8)
[2025-10-14 12:07] VITALS: BP 116/71; PULSE 87; RESP 17; TEMP 36.6; O2SAT 97
[2025-10-14 12:10] LABS: Alanine Aminotransferase 33 U/L (0-31); Albumin Level 5.0 g/dL (3.5-5.0); Alkaline Phosphatase 45 U/L (39-117); Anion Gap 13 (12-20); Aspartate Amino Transferase 30 U/L (5-31); Blood Urea Nitrogen 25 mg/dL (9-16); Calcium 10.4 mg/dL (8.4-10.2); Carbon Dioxide 28 mmol/L (22-29); Chloride 109 mmol/L (96-108); Creatinine Clr Calc Pharmacy 26.0; Estimated Glomerular Filt Rate 27; Potassium 4.1 mmol/L (3.3-5.1); Sodium 146 mmol/L (135-145); Total Protein 7.3 g/dL (6.5-8.0)
--- OUTSIDE RECORDS SUMMARY | 2025-10-14 13:13 | XMS_ITS | Data Portability ---
Author Organization [place] [facility] Address [address] [place] [id number] Care Team Providers Care Field Pipe Lines Supervisor Name Role Phone JENNIFER BETTS Primary Care [...] were answered prior to DH team departure. [email or web address] Not available 08/07/2022 18:48:34 Plan of Treatment Reminders Order Date Submit Date Provider Last Modified By Organization Details Last Modified Time Details Appointments None recorded. Lab unlisted lab - covid-19 (novel coronaviru s) PCR 2021 022 IRENE [facility] (Centralized Electronic Ordering - All Locations), Patient Can Go To The Location Of Their Choice, [id number] 16:05:23 Referral None recorded. Procedures None recorded. Surgeries None recorded. Imaging None recorded. Medication Orders None recorded. Patient TargetsNo targets recorded. Patient Instructions Encounter Date Encounter Id Patient Instructions Last Modified By Organization Details Last Modified Time 08/07/2022 [id number] sore throat: car e instructions [id number] Not available 08/07/2022 17:27:52 Please seek [...] in your condition between 8am-10pm, please call [facility] at [phone] to help navigate your care. [id number] 3 Not available 08/07/2022 17:07:41 Reason for [...] ng. Resul t repor audra to the [facility]. To preve nt error s [...] perfo rmed by real time PCR utili H2scan0 SARS- CoV-2 test. Not Available [facility] (Centralized Electronic Ordering - All Locations) Patient Can Go To The Location Of Their Choice, [id number] 08/08/2022 16:05:23 08/07/20 22 08/08/2022 COVID -19 (NOVE L CORON AVIRU S) PCR covid-19 PCR specimen source NASAL Not Available [facility] (Centralized Electronic Ordering - All Locations) Patient Can Go To The Location Of Their Choice, [id number] 08/08/2022 16:05:23 Result Notes None recorded. Procedures Surgical History Date Name Laterality Status Provider Name and Address Organization Details Recorded Time thyroidectomy completed Sara Flores NP [address] [place], [address], [place] [facility] 08/07/2022 17:04:06 Imaging Results None recorded. Procedure Notes None recorded. Medical Equipment None Reported. Allergies Allergen ID Allergen Name Allergen Category Reaction Reaction Severity Criticality Documentation Date Start Date Code Code System Note Provider Name and Address Organization Details Recorded Time 155127 Abilify medicatio n Not available Not available Not available 08/07/2022 54947 3 RxNorm Sara Flores NP [address] [place], [address], [place] [facility] 16:57:18 [id number] Bactrim medicatio n Not available Not available Not available 08/07/2022 04857 9 RxNorm Sara Flores NP [address], [place], [address], [place] [facility] 2 16:57:26 127098 aspirin medicatio n Not available Not available Not available 08/07/2022 1191 RxNorm Sara Flores , ROSS FURNACE OPERATOR [address], [place], [address], [place] [facility] 16:57:50 [id number] bupropion Not available Not available Not available Not available 08/07/2022 07222 RxNorm Sara Flores , ROSS FURNACE OPERATOR [address], [place], [address], [place] [facility] 16:58:24 [id number] Cogentin medicatio n Not available Not available Not available 08/07/2022 20553 2 RxNorm Sara Flores , ROSS FURNACE OPERATOR [address], [place], [address], [place] [facility] 2 16:58:34 [id number] Inderal medicatio n Not available Not available Not available 08/07/2022 89205 0 RxNorm Sara Flores , ROSS FURNACE OPERATOR [address], [place], [address], [place] [facility] 16:58:42 [id number] Motrin medicatio n Not available Not available Not available 08/07/2022 69046 8 RxNorm Sara Flores , ROSS FURNACE OPERATOR [address], [place], [address], [place] [facility] 2 16:58:50 [id number] Product containin g penicilli n (product) medicatio n Not available Not available Not available 08/07/2022 55973 8001 SNOMED Sara Flores , ROSS FURNACE OPERATOR [address], [place], [address], [place] [facility] 16:59:03 595381 risperido ne medicatio n Not available Not available Not available 08/07/2022 19578 RxNorm Sara Flores , ROSS FURNACE OPERATOR [address], [place], [address], [place] [facility] 16:59:16 [id number] Zyprexa medicatio n Not available Not available Not available 08/07/2022 43603 3 RxNorm Sara Flores , ROSS FURNACE OPERATOR [address], [place], [place], [address], [place] [facility] 16:59:27 [id number] Trilafon medicatio n Not available Not available Not available 08/07/2022 67210 0 RxNorm Sara Flores , ROSS FURNACE OPERATOR [address], [place], [address], [place] [facility] 2 16:59:46 [id number] erythromy juan medicatio n Not available Not available Not available 08/07/2022 4053 RxNorm Sara Flores , ROSS FURNACE OPERATOR [address], [place], [place], [address], [place] [facility] [...] AND REMOVE EVERY 7TH DAY WITH NAIL MACEDONIAN REMOVER 08/07 completed Not Available Not Available [...] Smoker May Mark, BRIANA [address], [place], [address], [place] [facility] 08/07/2022 17:05:03 Is Blood Transfusion Acceptable In An Emergency? Yes [email or web address] Information not available 08/07/2022 What Is Your Code Status? Full Code [email or web address] Information not available 08/07/2022 When Did You Quit Smoking? 16+yearssince lastcigarette [email or web address] Information not available 08/07/2022 Within The Past 12 Months, Has It Happened That The Food You Bought Just Didn't Last And You Didn't Have Money To Get More. No [email or web address] Information not available 08/07/2022 Within The Past 12 Months, Have You Worried That Your Food Would Run Out Before You Got Money To Buy More. No [email or web address] Information not available 08/07/2022 Fall Risk: Do You Feel Unsteady When Standing Or Walking? No [email or web address] Information not available 08/07/2022 We Know That How And When People Interact With Friends And Family Can Be Very Different From Person To Person. How Often Do You Have The Opportunity To See Or Talk To People That You Care About And Feel Close To? (Ex: Talking To Friends On The Phone Or Visiting Friends Or Family Or Going To Temple Or Club Meetings) Choose Not To Answer This Question [email or web address] Information not available 08/07/2022 Excessive Alcohol Or Drug Use No [email or web address] Information not available 08/07/2022 Does This Patient Have A PCP? Yes [email or web address] Information not available 08/07/2022 Has The Patient Seen Their PCP In The Past 6 Months? Yes [email or web address] Information not available 08/07/2022 Is This Patient In Hospice? No [email or web address] Information not available 08/07/2022 We Know From Many Of Our Patients That Covering All Of Their Costs Can Be Difficult At Times. This Can Cause Stress And Impact Health. In The Past Year, Have You Been Unable To Get Any Of The Following When It Was Really Needed? No Information not available 08/07/2022 What Is Your Housing Situation Today? I Have Housing [email or web address] Information not available 08/07/2022 Do You Have An Out Of Hospital DNR? No [email or web address] Information not available 08/07/2022 At What Age Did You Start Smoking Tobacco? 11 [email or web address] Information not available 08/07/2022 Sex: Unknown Functional Status Question Answer Note LastModified by Organizat ion Details LastModified Time Do you use any illicit or recreational drugs? No [email or web address] Information not available 08/07/2022 What is your level of alcohol consumption? None [email or web address] Information not available 08/07/2022 Mental Status None [...] ICD10 Code Diagnosis IMO Codes Diagnosis Note [id number] May BRIANA Flores [facility] [address] [place] [address] 08/07/2022 16:53:06 08/08/2022 15:38:35 Exposure to communicable disease 477175511 Z20.822 Loss of taste 92137269 R 43.2 Pain in throat 296080408 R07.0 Health Concerns Section Related Observation LastModified by Organization Detai ls LastModified Time None Recorded Concern Status LastModified by Organization Details LastModified Time None Recorded Advance Directives Directive None Recorded Payers Insurance Date Sequence Insurance Name Policy Number Policy Gutierrez Covered Member ID Gutierrez Member ID Guarantor Name 08/07/2022 1 *SELF PAY* Maryse Shaikh [id number] Maryse Shaikh 08/08/2022 1 [place] [facility] Maryse Shaikh [id number] Maryse Shaikh Notes Date Note Type Note [...] discomfort. Sara Flores NP [address], [place], [address], [place] [facility] 08/07/2022 21:04:37 OBGyn Episode No OBEpisode recorded.
[2025-10-14 14:31] VITALS: BP 116/71; PULSE 87; RESP 17; TEMP 36.6; O2SAT 97
== END 2025-10-14 14:32 | disposition home or self-care (01) ==
PROVIDERS: Emergency Provider Emergency Medicine; PCP Internal Medicine
DX: R42 Dizziness and giddiness (principal); F07.81 Postconcussional syndrome; R51.9 Headache, unspecified; R11.0 Nausea; N18.9 Chronic kidney disease, unspecified
CPT/HCPCS: 36415; 70450; 80053; 85025; 99284

== ENCOUNTER → 2025-10-14 11:02 | Outpatient (BNV) | payer MEDICARE, MEDICAID, SELFPAY | PROVIDERS: Emergency Provider Emergency Medicine; PCP Internal Medicine; Visit Provider Radiology Diagnostic Radiology | DX: R51.9 Headache, unspecified (principal) | CPT/HCPCS: 70450 ==

== ENCOUNTER 2025-10-17 22:44 | Emergency (ER) | payer MEDICARE, MEDICAID, SELFPAY ==
[2025-10-17 22:51] VITALS: BP 128/62; PULSE 78; O2SAT 96
[2025-10-17 22:52] VITALS: BP 135/61; PULSE 74; RESP 19; TEMP 36.7; O2SAT 98; BMI 25.3
[2025-10-17 23:29] VITALS: BP 111/55; PULSE 68; RESP 18; O2SAT 97
[2025-10-18 00:59] VITALS: BP 96/48; PULSE 62; RESP 16
--- NOTE | 2025-10-18 01:20 | ECG_ITS ---
Test Reason : OD Blood Pressure : */* mmHG Vent. Rate : 59 BPM Atrial Rate : 59 BPM P-R Int : 198 ms QRS Dur : 86 ms QT Int : 468 ms P-R-T Axes : 59 -6 56 degrees QTcB Int : 463 ms Sinus bradycardia Otherwise normal ECG When compared with ECG of 04-Jul-2025 17:33, No significant change was found Referred By: Alona German Electronically Signed By: BRODY PHILLIPS
--- NOTE | 2025-10-18 01:20 | ED.GENADULT ---
HPI - General Adult General Chief complaint: General Medical Stated complaint: took morning meds instead of pm meds Time Seen by Provider: 10/18/25 01:19 Source: patient and EMS Mode of arrival: EMS Limitations: no limitations History of Present Illness ED Provider: Dr. Alona German HPI narrative: 65-year-old female with a history of bipolar disorder, hypothyroidism presenting by EMS with reports of taking her daytime medications instead of her nighttime medications. Reports that she feels tired and slightly dizzy but denies other symptoms. Has been feeling well prior to this. Took the medications by accident, no intention of self-harm. Related Data Home Medications ?Medication ?Instructions ?Recorded ?Confirmed clonazepam 0.25 mg disintegrating 0.25 mg PO TID PRN anxiety 05/16/24 05/16/24 tablet famotidine 20 mg tablet 20 mg PO BEDTIME Acid Reflux 05/16/24 05/19/24 lamotrigine 200 mg tablet 200 mg PO BEDTIME 05/16/24 05/16/24 lamotrigine 25 mg tablet 50 mg PO BID 05/16/24 05/19/24 omeprazole 20 mg capsule,delayed 20 mg PO DAILY 05/16/24 05/16/24 release ascorbic acid (vitamin C) 1,000 mg 1,000 mg PO DAILY 05/19/24 05/19/24 tablet (Vitamin C) calcium carbonate 600 mg PO DAILY 05/19/24 05/19/24 cholecalciferol (vitamin D3) 25 25 mcg PO DAILY 05/19/24 05/19/24 mcg (1,000 unit) capsule (Vitamin D3) coenzyme Q10 100 mg capsule 100 mg PO DAILY 05/19/24 05/19/24 (CoQ-10) [id number]-[id number] 8 mg-folic 400 1 tab PO DAILY 05/19/24 05/19/24 mcg-K 50 mcg-lutein 300 mcg tablet (Centrum Silver Women) Previous Rx's ?Medication ?Instructions ?Recorded chlorpromazine 25 mg tablet 50 mg (2 x 25 mg) PO DAILY 30 days 12/02/23 #60 tabs chlorpromazine 25 mg tablet 75 mg (3 x 25 mg) PO BEDTIME 30 12/02/23 days #90 tabs levothyroxine 125 mcg tablet 125 mcg PO DAILY@0600 30 days #30 12/02/23 tabs simvastatin 40 mg tablet 40 mg PO BEDTIME 30 days #30 tabs 12/02/23 trazodone 50 mg tablet 50 mg PO BEDTIME PRN Insomnia 30 12/02/23 days #30 tabs trihexyphenidyl 2 mg tablet 2 mg PO QAM 30 days #30 tabs 12/02/23 ziprasidone HCl 20 mg capsule 20 mg PO BIDWM 30 days #60 caps 12/02/23 ziprasidone HCl 80 mg capsule 80 mg PO BIDWM 30 days #60 caps 12/02/23 lidocaine 5 % topical patch 1 patch topical DAILY #15 ea 06/27/25 (Lidoderm) ondansetron 4 mg disintegrating 4 mg PO Q8H PRN nausea and 06/29/25 tablet vomiting #20 tabs ondansetron 4 mg disintegrating 4 mg PO Q8H PRN nausea and 07/04/25 tablet vomiting #10 tabs Allergies Allergy/AdvReac Type Severity Reaction Status Date / Time Penicillins (PENICILLINS) Allergy Severe HIVES Verified 11/11/25 16:05 sulfamethoxazole (From Allergy Severe DIARRHEA Verified 11/11/25 16:05 BACTRIM) trimethoprim (From BACTRIM) Allergy Severe DIARRHEA Verified 11/11/25 16:05 aripiprazole (From ABILIFY) Allergy Intermediate ATAXIA Verified 11/11/25 16:05 aspirin (ASPIRIN) Allergy Intermediate STOMACH Verified 11/11/25 16:05 CRAMPS benztropine (From COGENTIN) Allergy Intermediate CONFUSION, Verified 11/11/25 16:05 memory loss bupropion (BUPROPION) Allergy Intermediate DIZZINESS Verified 11/11/25 16:05 erythromycin base Allergy Intermediate GI UPSET Verified 11/11/25 16:05 (ERYTHROMYCIN BASE) ibuprofen (From MOTRIN) Allergy Intermediate STOMACH Verified 11/11/25 16:05 CRAMPS olanzapine (From ZYPREXA) Allergy Intermediate TONGUE Verified 11/11/25 16:05 MOVEMENTS perphenazine (From TRILAFON) Allergy Intermediate ARM AND Verified 11/11/25 16:05 LEG MOVEMENTS, FALL risperidone (From RISPERDAL) Allergy Intermediate TONGUE Verified 11/11/25 16:05 MOVEMENT milk Allergy Drowsy Verified 11/11/25 16:05 egg AdvReac Stomach Verified 11/11/25 16:05 Upset From INDERAL Allergy Intermediate WHEEZING Uncoded 10/17/25 22:55 Review of Systems Review of Systems: as per HPI, full review of systems performed and negative but for the above mentioned pertinent positives and negatives. [facility] Past Medical History Medical History Routine medical exam CKD (chronic kidney disease), stage IV Bipolar disorder Neck pain Murmur GERD (gastroesophageal reflux disease) Hypothyroidism Irritable bowel syndrome (IBS) Hyperlipidemia Anxiety and depression Dissociative identity disorder Surgical History Hx of colonoscopy History of total thyroidectomy Social History Social History Household Members: None Household Members Other:: roommate Housing: Apartment Are you a primary care center manager to a significant other at home: No Do you presently have visiting nurse or other home services: Yes (pt has VNA for only one day prior to admission.) Alcohol intake: never Comment: aware of trip hazard Patient Tobacco Use Status: Former Tobacco user Tobacco use type: Cigarette Cigarette Packs Per Day: 1 Cigarettes Per Day: 20.0 Years Smoked: 20 e-Cigarette/Vaping Use: Never Used Second Hand Smoke Exposure: No Advance Directives: No Advance Directives Information Provided: No service: No Sexual orientation: Did not discuss Physical Exam ED Exam Exam: GENERAL: Chronically ill-appearing, conversant, no acute distress. SKIN: Normal skin color for ethnicity, warm, dry, no rashes noted. HEENT: Normocephalic, atraumatic, no stridor, posterior oropharynx nonerythematous, EOMI. NECK: Soft, supple, full ROM, midline structures nontender, no step-offs, no deformities, no lymphadenopathy. CHEST: Heart regular rate and rhythm, no murmurs, symmetric chest rise and fall. PULMONARY: Clear to auscultation bilaterally, no labored breathing, no wheezes/rhales/ rhonchi. ABDOMINAL: Soft, nondistended, nontender, positive bowel sounds in all quadrants. : Deferred. MUSCULOSKELETAL: Normal tone, full range of motion, no deformities, no peripheral edema. NEURO: Alert and oriented to person, CN II through XII intact, no focal neurologic deficits. PSYCHIATRIC: Flat affect, fluid speech, appropriate demeanor. Vital Signs: Vital Signs - 24 hr 10/17/25 22:52 10/17/25 23:29 10/18/25 00:59 Temperature 98.0 F Pulse Rate 74 68 62 Respiratory Rate 19 18 16 Blood Pressure 135/61 111/55 L 96/48 L Pulse Oximetry 98 97 Oxygen Delivery Method Room Air Room Air BMI result Body Mass Index 25.3 Medications Administered Discontinued Medications Generic Name Dose Route Start Last Admin Trade Name Mitchellq PRN Reason Stop Dose Admin Lactated Ringer's 1,000 mls @ 999 mls/hr 10/18/25 01:25 10/18/25 02:10 Lr IV 10/18/25 02:25 Not Given .Q1H1M ONE Medical Decision Making Medical Decision Making MDM Narrative: Patient presents with a chief complaint of possible overdose. Differential diagnosis includes life-threatening toxidrome such as anticholinergic syndrome, serotonin syndrome, sympathomimetic, opioid induced, sedative hypnotic, among others. Also includes co-ingestions, acidosis, intracranial process such as mass, hemorrhage, or CVA. Patient evaluated to determine if there is adequate GCS to maintain their airway as well as for hemodynamic stability. Placed on color television console monitor for blood pressure, heart rhythm and oxygen levels. Frequent reevaluations to ensure no worsening neurologic or hemodynamic instability. Patient currently has no complaints. Blood pressure improved after fluids. Discussed importance of monitoring her medication administration and taking her daytime meds again this morning. Encouraged her to avoid taking her nighttime doses for now. Using shared decision making, plan for discharge home to follow-up with primary care and/or specialist. Patient understands and agrees with plan for discharge. Discharged home in stable condition. Differential Diagnosis Differential Diagnoses: The differential diagnosis associated with the presentation includes (as above) Admission/Observation Consideration of admission/observation: Escalation of care including admission/observation considered Independent Historian Clinical information obtained from an independent historian. History obtained from or confirmed by: EMS External Record Review External record reviewed: Inpatient record Chronic Conditions Patient?s care impacted by: Other (bipolar disorder, hypothyroidism) Social Determinants Patient?s care significantly limited by Social Determinants of Health including: Other Social Determinant of Health Discharge Plan Discharge Clinical Impression: Accidental drug ingestion Patient Disposition: Home, Self-Care Instructions: Adult Overdose (ED) Additional Instructions: Take all of your medications as prescribed. Return to the emergency department with any new or worsening symptoms. Prescriptions: No Action trazodone 50 mg Tablet 50 mg PO BEDTIME PRN (Reason: Insomnia) 30 Days Qty: 30 0RF ziprasidone HCl 80 mg capsule 80 mg PO BIDWM 30 Days Qty: 60 0RF simvastatin 40 mg tablet 40 mg PO BEDTIME 30 Days Qty: 30 0RF ziprasidone HCl 20 mg Capsule 20 mg PO BIDWM 30 Days Qty: 60 0RF Rx Instructions: give with food (meal/snack) chlorpromazine 25 mg Tablet 50 mg PO DAILY 30 Days Qty: 60 0RF chlorpromazine 25 mg Tablet 75 mg PO BEDTIME 30 Days Qty: 90 0RF levothyroxine 125 mcg Tablet 125 mcg PO DAILY@0600 30 Days Qty: 30 0RF trihexyphenidyl 2 mg tablet 2 mg PO QAM 30 Days Qty: 30 0RF lamotrigine 25 mg tablet 50 mg PO BID famotidine 20 mg tablet 20 mg PO BEDTIME omeprazole 20 mg capsule,delayed release(DR/EC) 20 mg PO DAILY lamotrigine 200 mg tablet 200 mg PO BEDTIME clonazepam 0.25 mg tablet,disintegrating 0.25 mg PO TID PRN (Reason: anxiety) ascorbic acid (vitamin C) [Vitamin C] 1,000 mg Tablet 1,000 mg PO DAILY calcium carbonate 600 mg calcium (1,500 mg) Tablet 600 mg PO DAILY cholecalciferol (vitamin D3) [Vitamin D3] 25 mcg (1,000 unit) Capsule 25 mcg PO DAILY coenzyme Q10 [CoQ-10] 100 mg Capsule 100 mg PO DAILY Centrum Silver Women 8 mg iron-400 mcg-50 mcg Tablet 1 tab PO DAILY lidocaine [Lidoderm] 5 % adhesive patch,medicated 1 patch topical DAILY Qty: 15 0RF Rx Instructions: leave on most painful area for up to 12 hrs ondansetron 4 mg tablet,disintegrating 4 mg PO Q8H PRN (Reason: nausea and vomiting) Qty: 10 0RF ondansetron 4 mg tablet,disintegrating 4 mg PO Q8H PRN (Reason: nausea and vomiting) Qty: 20 0RF Interventions: ED Discharge Assessment Last Done: 10/18/25 07:06 Discharge Date/Time: 10/18/25 07:14 Print Language: Colombian
[2025-10-18 01:30] VITALS: BP 138/68; PULSE 65; RESP 16; O2SAT 98
--- NOTE | 2025-10-18 02:01 | PC.NURSE ---
pt resting comfortably in room, VSS. pt reporting most of the medications she took by accident, AM instead of HS, were BID, she would have taken anyway. pt reporting she is not take clonazepam, did not take levothyroxine. unsure of all the names of the meds. reports she takes the vitamins at noon.
[2025-10-18 06:44] VITALS: BP 135/69; PULSE 71; RESP 18; O2SAT 99
[2025-10-18 07:06] VITALS: BP 135/69; PULSE 71; RESP 18; TEMP 37; O2SAT 99
== END 2025-10-18 07:14 | disposition home or self-care (01) ==
PROVIDERS: Emergency Provider Emergency Medicine
DX: R42 Dizziness and giddiness (principal); R00.1 Bradycardia, unspecified; Z87.891 Personal history of nicotine dependence; Z79.899 Other long term (current) drug therapy; T50.905A Adverse effect of unspecified drugs, medicaments and biological substances, initial encounter; Y92.9 Unspecified place or not applicable
CPT/HCPCS: 93005; 96365; 96366; 99284

== ENCOUNTER → 2025-10-18 01:20 | Outpatient (BNV) | payer MEDICARE, MEDICAID, SELFPAY | PROVIDERS: Emergency Provider Emergency Medicine; Visit Provider Internal Medicine | DX: R00.1 Bradycardia, unspecified (principal) | CPT/HCPCS: 93010 ==

== ENCOUNTER 2025-11-11 15:11 | Emergency (ER) | payer MEDICARE, MEDICAID, SELFPAY ==
--- OUTSIDE RECORDS SUMMARY | 2025-11-06 23:59 | XMS_ITS | Continuity of Care Document ---
Author Organization [facility] Joe lt Address [address] [place] [address]- Care Team Providers Care Fire Fighting Equipment Specialist Name Role Phone Parris NOBLE, Francis Judge Primary Care Physician Encounter [facility] Date(s): 10/07/25 - 11/06/25 [facility] Adult [address] [place] [address]- Encounter Type: Triage Allergies, Adverse Reactions, Alerts [...] Recorded zoster vaccine, inactivated 07/25/23 Recorded SARS-CoV-2(COVID-19)mRNA-LNP vac([id number]) 01/27/24 Recorded [id number] bivalent booster vax 10/16/22 Recorded tetanus/diphtheria/pertussis, acel(Tdap) [...] Allowed Fills: 1 Fills Dispensed: 0 levothyroxine 112 mcg (0.112 [...] - Primary Care Member Role: PCP Address: [address] [place], [place] [address] Telecom: Care Team Related Persons Name: KAITY SWIFT Name: YVETTE CASIANO Insurance Providers Guarantor name: KAY CASIANO Health Plan Information #: 1 Payer: MEDICARE B Payer Identifier: NA Member Number: [id number] Group Number: NA Subscriber Identifier: NA Relationship to Subscriber: self Coverage Type: NA Coverage Verification Date: NA Telecom: NA Address: Health Plan Information #: 2 Payer: [employer]ER [employer] Payer Identifier: NA Member Number: [id number] Group Number: NA Subscriber Identifier: NA Relationship to Subscriber: self Coverage Type: MEDICAID Coverage Verification Date: NA Telecom: NA Address:
--- OUTSIDE RECORDS SUMMARY | 2025-11-06 23:59 | XMS_ITS | Continuity of Care Document ---
Author Organization [facility] Joe [address] Address [address] [place] [address]- Care Team Providers Care Asbestos Wire Finisher Name Role Phone Parris NOBLE, Francis Judge Primary Care Physician [phone] Encounter [facility] Date(s): 10/07/25 - 11/06/25 [facility] Adult [address] [place] [address]- Encounter Type: Triage Allergies, Adverse Reactions, Alerts Substance Criticality Severity Reaction Reaction Severity Status erythromycin Active aspirin Active Bactrim Active ZyPREXA Active Resperal Active penicillins Active Motrin Active Inderal Active Cogentin Active ZyrTEC Active Trilafon Active Wellbutrin Active Immunizations Given and Recorded Vaccine Date Status Refusal Reason influenza virus vaccine, inactivated 09/14/24 Caleb rded influenza virus vaccine, inactivated 09/30/23 Caleb rded influenza virus vaccine, inactivated 12/27/22 Caleb rded influenza virus vaccine, inactivated 10/18/21 Caleb rded zoster vaccine, inactivated 02/17/24 Recorded zoster vaccine, inactivated 07/25/23 Recorded SARS-CoV-2(COVID-19)mRNA-LNP vac([id number]) 01/27/24 Recorded [id number] bivalent booster vax 10/16/22 Recorded tetanus/diphtheria/pertussis, acel(Tdap) [...] - Primary Care Member Role: PCP Address: [address] [place] [id number] Telecom: Care Team Related Persons Name: KAITY SWIFT Name: YVETTE CASIANO Insurance Providers Guarantor name: KAY CASIANO Health Plan Information #: 1 Payer: MEDICARE B Payer Identifier: NA Member Number: [id number] Group Number: NA Subscriber Identifier: NA Relationship to Subscriber: self Coverage Type: NA Coverage Verification Date: NA Telecom: NA Address: Health Plan Information #: 2 Payer: [employer]ER SERV[employer] Payer Identifier: NA Member Number: [id number] Group Number: NA Subscriber Identifier: NA Relationship to Subscriber: self Coverage Type: MEDICAID Coverage Verification Date: NA Telecom: NA Address:
--- OUTSIDE RECORDS SUMMARY | 2025-11-10 23:59 | XMS_ITS | Continuity of Care Document ---
Author Organization [facility] Joe [address] Address [address] [place] [address]- Care Team Providers Care Air Hammer Operator Name Role Phone Parris NOBLE, Francis Judge Primary Care Physician [phone] En[place] [facility] [place]25 - 11/10/25 [facility] Adult [address] [place] [address]- Encounter Type: Triage Allergies, Adverse Reactions, Alerts [...] Recorded zoster vaccine, inactivated 07/25/23 Recorded SARS-CoV-2(COVID-19)mRNA-LNP vac([id number]) 01/27/24 Recorded [id number] bivalent booster vax 10/16/22 Recorded tetanus/diphtheria/pertussis, acel(Tdap) [...] - Primary Care Member Role: PCP Address: [address] [place] [id number] Telecom: Care Team Related Persons Name: KAITY SWIFT Name: YVETTE CASIANO Insurance Providers Guarantor name: KAY CASIANO Health Plan Information #: 1 Payer: MEDICARE B Payer Identifier: NA Member Number: [id number] Group Number: NA Subscriber Identifier: NA Relationship to Subscriber: self Coverage Type: NA Coverage Verification Date: NA Telecom: NA Address: Health Plan Information #: 2 Payer: [employer]ER [employer] Payer Identifier: NA Member Number: [id number] Group Number: NA Subscriber Identifier: NA Relationship to Subscriber: self Coverage Type: MEDICAID Coverage Verification Date: NA Telecom: NA Address:
--- NOTE | ~2025-11-11 | CT_ITS ---
CLINICAL HISTORY: head strike, dizziness CT head without contrast Comparison: CT/REG/SR - CT HEAD WITHOUT IV CONTRAST - 10/14/25 11:12 EST Findings: Involutional change and nonspecific white matter hypodensity. No intracranial mass, midline shift, hydrocephalus, or acute hemorrhage. Orbits, paranasal sinuses, and mastoid air cells are unremarkable. No skull fracture Impression: 1. No acute findings This document has been electronically signed by: Barbara Irizarry MD on 11/11/2025 18:13:58
--- NOTE | 2025-11-11 15:27 | ED.GENADULT ---
HPI - General Adult General Chief complaint: Dizziness Stated complaint: dizziness,bump back r head, hit head Time Seen by Provider: 11/11/25 18:59 Source: patient and EMS Mode of arrival: EMS Limitations: no limitations History of Present Illness ED Provider: Rosemary Mcgee PA-C HPI narrative: Patient is a 65 year old female with a history of PTSD and bipolar disorder presenting to the emergency department today after a head strike. Patient states that she was reaching to get something out of a cabinet when she hit her head on the open cabinet door. Patient denies any loss of consciousness with the incident. Patient states that she was briefly dizzy after the incident but now feels fine. Patient denies any other complaints at this time. Related Data Home Medications ?Medication ?Instructions ?Recorded ?Confirmed clonazepam 0.25 mg disintegrating 0.25 mg PO TID PRN anxiety 05/16/24 05/16/24 tablet famotidine 20 mg tablet 20 mg PO BEDTIME Acid Reflux 05/16/24 05/19/24 lamotrigine 200 mg tablet 200 mg PO BEDTIME 05/16/24 05/16/24 lamotrigine 25 mg tablet 50 mg PO BID 05/16/24 05/19/24 omeprazole 20 mg capsule,delayed 20 mg PO DAILY 05/16/24 05/16/24 release ascorbic acid (vitamin C) 1,000 mg 1,000 mg PO DAILY 05/19/24 05/19/24 tablet (Vitamin C) calcium carbonate 600 mg PO DAILY 05/19/24 05/19/24 cholecalciferol (vitamin D3) 25 25 mcg PO DAILY 05/19/24 05/19/24 mcg (1,000 unit) capsule (Vitamin D3) coenzyme Q10 100 mg capsule 100 mg PO DAILY 05/19/24 05/19/24 (CoQ-10) [id number] 8 mg-folic 400 1 tab PO DAILY 05/19/24 05/19/24 mcg-K 50 mcg-lutein 300 mcg tablet (Centrum Silver Women) Previous Rx's ?Medication ?Instructions ?Recorded chlorpromazine 25 mg tablet 50 mg (2 x 25 mg) PO DAILY 30 days 12/02/23 #60 tabs chlorpromazine 25 mg tablet 75 mg (3 x 25 mg) PO BEDTIME 30 01/02/24 days #90 tabs levothyroxine 125 mcg tablet 125 mcg PO DAILY@0600 30 days #30 12/02/23 tabs simvastatin 40 mg tablet 40 mg PO BEDTIME 30 days #30 tabs 12/02/23 trazodone 50 mg tablet 50 mg PO BEDTIME PRN Insomnia 30 12/02/23 days #30 tabs trihexyphenidyl 2 mg tablet 2 mg PO QAM 30 days #30 tabs 12/02/23 ziprasidone HCl 20 mg capsule 20 mg PO BIDWM 30 days #60 caps 12/02/23 ziprasidone HCl 80 mg capsule 80 mg PO BIDWM 30 days #60 caps 12/02/23 lidocaine 5 % topical patch 1 patch topical DAILY #15 ea 06/27/25 (Lidoderm) ondansetron 4 mg disintegrating 4 mg PO Q8H PRN nausea and 06/29/25 tablet vomiting #20 tabs ondansetron 4 mg disintegrating 4 mg PO Q8H PRN nausea and 07/04/25 tablet vomiting #10 tabs Allergies Allergy/AdvReac Type Severity Reaction Status Date / Time Penicillins (PENICILLINS) Allergy Severe HIVES Verified 11/11/25 16:05 sulfamethoxazole (From Allergy Severe DIARRHEA Verified 11/11/25 16:05 BACTRIM) trimethoprim (From BACTRIM) Allergy Severe DIARRHEA Verified 11/11/25 16:05 aripiprazole (From ABILIFY) Allergy Intermediate ATAXIA Verified 11/11/25 16:05 aspirin (ASPIRIN) Allergy Intermediate STOMACH Verified 11/11/25 16:05 CRAMPS benztropine (From COGENTIN) Allergy Intermediate CONFUSION, Verified 11/11/25 16:05 memory loss bupropion (BUPROPION) Allergy Intermediate DIZZINESS Verified 11/11/25 16:05 erythromycin base Allergy Intermediate GI UPSET Verified 11/11/25 16:05 (ERYTHROMYCIN BASE) ibuprofen (From MOTRIN) Allergy Intermediate STOMACH Verified 11/11/25 16:05 CRAMPS olanzapine (From ZYPREXA) Allergy Intermediate TONGUE Verified 11/11/25 16:05 MOVEMENTS perphenazine (From TRILAFON) Allergy Intermediate ARM AND Verified 11/11/25 16:05 LEG MOVEMENTS, FALL risperidone (From RISPERDAL) Allergy Intermediate TONGUE Verified 11/11/25 16:05 MOVEMENT milk Allergy Drowsy Verified 11/11/25 16:05 egg AdvReac Stomach Verified 11/11/25 16:05 Upset From INDERAL Allergy Intermediate WHEEZING Uncoded 10/17/25 22:55 Review of Systems Constitutional: Constitutional: Reports as per HPI Eyes: Eyes: Reports as per HPI ENT: Reports as per HPI Cardiovascular: Cardiovascular: Reports as per HPI Respiratory: Respiratory: Reports as per HPI Gastrointestinal: Gastrointestinal: Reports as per HPI Genitourinary: Genitourinary: Reports as per HPI Musculoskeletal: Musculoskeletal: Reports as per HPI Integumentary/Breasts: Skin/Breast: Reports as per HPI Neurologic: Reports as per HPI Psychiatric: Psychiatric: Reports as per HPI Endocrine: Endocrine: Reports as per HPI Hematologic/Lymphatic: Hematologic/Lymphatic: Reports as per HPI Allergic/Immunologic: Allergic/Immunologic: Reports as per HPI [facility] Past Medical History Attestation statement: The following information was validated with the patient. Source: old records reviewed and nursing notes reviewed Medical History Routine medical exam CKD (chronic kidney disease), stage IV Bipolar disorder Neck pain Murmur GERD (gastroesophageal reflux disease) Hypothyroidism Irritable bowel syndrome (IBS) Hyperlipidemia Anxiety and depression Dissociative identity disorder Surgical History Hx of colonoscopy History of total thyroidectomy Social History Social History Household Members: None Household Members Other:: roommate Housing: Apartment Are you a primary career technical education instructor to a significant other at home: No Do you presently have visiting nurse or other home services: Yes (pt has VNA for only one day prior to admission.) Alcohol intake: never Comment: aware of trip hazard Patient Tobacco Use Status: Former Tobacco user Tobacco use type: Cigarette Cigarette Packs Per Day: 1 Cigarettes Per Day: 20.0 Years Smoked: 20 e-Cigarette/Vaping Use: Never Used Second Hand Smoke Exposure: No Advance Directives: No Advance Directives Information Provided: No service: No Sexual orientation: Did not discuss Physical Exam ED Vital Signs: Vital Signs - 24 hr 11/11/25 16:02 11/11/25 18:58 11/11/25 19:25 Temperature 98.3 F 98.1 F 98.1 F Pulse Rate 81 89 89 Respiratory Rate 18 18 18 Blood Pressure 139/67 166/74 H 166/74 H Pulse Oximetry 99 96 96 Oxygen Delivery Method Room Air Room Air Room Air BMI result Body Mass Index 23.8 Const General: cooperative, no acute distress, alert and awake Nutritional Appearance: well nourished Orientation/consciousness: patient oriented x3 HENMT Head: Yes normal to inspection and Yes atraumatic Ears: hearing grossly normal bilaterally and external ears normal General nose exam: Normal external nose present, no nasal discharge noted and no epistaxis Face and sinus: Yes normal facial exam, No abrasion and No laceration Mouth: Normal oral and palatal mucosa present, no drooling and no muffled voice Eyes General: appearance normal, both eyes and all related structures Periorbital: periorbital findings normal Eyelids: Yes eyelids normal Conjunctivae: conjunctivae normal Pupils: Equal, round and reactive pupils present EOM: EOMs intact bilaterally Neck Neck: Yes normal visual inspection and Yes full ROM Resp Effort & Inspection: normal respiratory effort and able to speak in complete sentences Neuro General: patient oriented x3, moves all extremities and CN's II-XI intact bilaterally Cranial nerves: Yes Equal, round and reactive pupils present Cognition (Neuro): normal cognition Extrem General: Yes normal to inspection, Yes full ROM and Yes capillary refill normal Psych Appearance: grossly normal Mental Status: mental status grossly normal Affect: normal affect Attitude: cooperative Thought process: Normal thought process present Thought content: Normal thought content present Insight: Good insight present (Psych) Course Course Course Narrative: Rapid medical examination performed in triage by Rosemary Mcgee PA-C: Patient is a 65 year old assigned female at presenting to the emergency department with a headache and dizziness after bumping her head on a cabinet door she forgot she left open. Patient denies neck pain or loss of consciousness with the incident. Detailed physical exam and review of systems are deferred to the leader assembler. Imaging ordered. Patient placed back in the waiting room pending room availability and results. Medical Decision Making Medical Decision Making MDM Narrative: Patient is a 65 year old female with a history of PTSD and bipolar disorder presenting to the emergency department today after a head strike. Patient's physical exam was as noted in the physical exam portion of this note. Patient's CT head showed no acute process. I explained my physical exam findings as well as all test results to the patient. I answered all questions asked by the patient. I stressed the importance of the patient taking her medication as directed (either prescribed or as the over the counter packaging recommends). I stressed the importance of the patient following up with her primary care provider. I stressed the importance of the patient returning to the emergency department immediately if her symptoms were to worsen or if she were to develop any dizziness, shortness of breath, difficulty breathing, chest pain, blurry vision, loss of vision, nausea, vomiting, abdominal pain, fever, chills, back pain, or any other complaints. Patient verbalized agreement and understanding with this treatment plan and discharge. Differential Diagnosis Differential Diagnoses: The differential diagnosis associated with the presentation includes Head injury Concussion Intracranial bleeding Skull fracture Admission/Observation Consideration of admission/observation: Escalation of care including admission/observation considered Patient would have been admitted to the hospital had her work up had any findings where hospital admission was appropriate and her clinical presentation warranted hospital admission. Independent Interpretation I performed an independent interpretation of an: CT Scan Interpretation: My interpretation is in agreement with the radiologist's impression of this imaging study as written below. Report Number: [id number]: Total DLP = 658.00 mGy-cm Reason for Exam: head strike, dizziness CLINICAL HISTORY: head strike, dizziness CT head without contrast Comparison: CT/REG/SR - CT HEAD WITHOUT IV CONTRAST - 10/14/25 11:12 EST Findings: Involutional change and nonspecific white matter hypodensity. No intracranial mass, midline shift, hydrocephalus, or acute hemorrhage. Orbits, paranasal sinuses, and mastoid air cells are unremarkable. No skull fracture Impression: 1. No acute findings This document has been electronically signed by: Barbara Irizarry MD on 11/11/2025 18:13:58 Dictated By: Barbara Irizarry MD Signed By: Electronically signed by Barbara Irizarry MD 11/11/25 3714 Radiology Impression Discussion of test interpretation with radiology: I have reviewed the radiologist's reading. Independent Historian Clinical information obtained from an independent historian. History obtained from or confirmed by: EMS (EMS provided additional history and confirmed the history provided by the patient. ) Discharge Plan Discharge Clinical Impression: Head injury Patient Disposition: Home, Self-Care Instructions: Head Injury (DC) Additional Instructions: Please be careful when reaching into cabinets. Your CT scan showed no evidence of bleeding or skull fracture. IF you are prescribed home medications and/or you are taking over the counter medications at home - it is very important you continue to do so as prescribed / directed unless told otherwise by a healthcare provider. Follow up with your primary care provider. Do your best to stay well hydrated and rest. Return to the emergency department immediately if your symptoms worsen or if you develop any numbness, tingling, dizziness, shortness of breath, difficulty breathing, chest pain, blurry vision, loss of vision, nausea, vomiting, abdominal pain, fever, chills, back pain, or any other complaints. If you do not have a primary care provider - call any of the below numbers to establish and follow up with a primary care provider. [facility] Primary Care ([place]) [phone] [place] [address], [address] [facility] Primary Care ([address] [place]) [phone] [place] [address], [address] [facility], [address] [facility] Primary Care ([address] [place]) [phone] [place] [address], [address] [facility], [address] [facility] Primary Care ([place]) [phone] [place] [address] [address] [facility], [address] [facility] Family Medicine [phone] [facility], [address] Please see the information below about our Patient Portal. If you are not yet enrolled in the [facility] Patient Portal, you will receive an enrollment email invitation following your visit to any [facility] setting. You may also self-enroll in the Patient Portal by visiting our website: [email or web address] The following information is required to access the Patient Portal: - Your [facility] Medical Record Number - Your personal home email address (must match what is in your electronic medical record, Registration staff can assist with this) - Name - Date of Capabilities of the Patient Portal: - Message some providers - View upcoming appointments - Access your health summary, medical history, and visit history - View current conditions and allergies - View procedure and lab results - View your medications, including guidelines, side effects, and precautions - Complete pre-appointment questionnaires requested by your provider - Ready summary reports of your office visits and procedures To access the Patient Portal Mobile [employer], follow these directions: - Search [employer] in the [employer] Store or Google Play Store - Download the [employer] - Search for [facility] - Enter your login/password Prescriptions: No Action trazodone 50 mg Tablet 50 mg PO BEDTIME PRN (Reason: Insomnia) 30 Days Qty: 30 0RF ziprasidone HCl 80 mg capsule 80 mg PO BIDWM 30 Days Qty: 60 0RF simvastatin 40 mg tablet 40 mg PO BEDTIME 30 Days Qty: 30 0RF ziprasidone HCl 20 mg Capsule 20 mg PO BIDWM 30 Days Qty: 60 0RF Rx Instructions: give with food (meal/snack) chlorpromazine 25 mg Tablet 50 mg PO DAILY 30 Days Qty: 60 0RF chlorpromazine 25 mg Tablet 75 mg PO BEDTIME 30 Days Qty: 90 0RF levothyroxine 125 mcg Tablet 125 mcg PO DAILY@0600 30 Days Qty: 30 0RF trihexyphenidyl 2 mg tablet 2 mg PO QAM 30 Days Qty: 30 0RF lamotrigine 25 mg tablet 50 mg PO BID famotidine 20 mg tablet 20 mg PO BEDTIME omeprazole 20 mg capsule,delayed release(DR/EC) 20 mg PO DAILY lamotrigine 200 mg tablet 200 mg PO BEDTIME clonazepam 0.25 mg tablet,disintegrating 0.25 mg PO TID PRN (Reason: anxiety) ascorbic acid (vitamin C) [Vitamin C] 1,000 mg Tablet 1,000 mg PO DAILY calcium carbonate 600 mg calcium (1,500 mg) Tablet 600 mg PO DAILY cholecalciferol (vitamin D3) [Vitamin D3] 25 mcg (1,000 unit) Capsule 25 mcg PO DAILY coenzyme Q10 [CoQ-10] 100 mg Capsule 100 mg PO DAILY Centrum Silver Women 8 mg iron-400 mcg-50 mcg Tablet 1 tab PO DAILY lidocaine [Lidoderm] 5 % adhesive patch,medicated 1 patch topical DAILY Qty: 15 0RF Rx Instructions: leave on most painful area for up to 12 hrs ondansetron 4 mg tablet,disintegrating 4 mg PO Q8H PRN (Reason: nausea and vomiting) Qty: 10 0RF ondansetron 4 mg tablet,disintegrating 4 mg PO Q8H PRN (Reason: nausea and vomiting) Qty: 20 0RF Interventions: ED Discharge Assessment Last Done: 11/11/25 19:25 Discharge Date/Time: 11/11/25 19:26 Print Language: Dutch
[2025-11-11 16:02] VITALS: BP 139/67; PULSE 81; RESP 18; TEMP 36.8; O2SAT 99; BMI 23.8
[2025-11-11 18:58] VITALS: BP 166/74; PULSE 89; RESP 18; TEMP 36.7; O2SAT 96
[2025-11-11 19:25] VITALS: BP 166/74; PULSE 89; RESP 18; TEMP 36.7; O2SAT 96
--- OUTSIDE RECORDS SUMMARY | 2025-11-11 20:48 | XMS_ITS | Data Portability ---
Author Organization [place] - [facility] Address [address] [place] [address] Care Team Providers Care Yoker Name Role Phone JENNIFER BETTS Primary Care [...] were answered prior to DH team departure. [email or web address] Not available 08/07/2022 18:48:34 Plan of Treatment Reminders Order Date Submit Date Provider Last Modified By Organization Details Last Modified Time Details Appointments None recorded. Lab unlisted lab - covid-19 (novel coronaviru s) PCR 2021 022 IRENE [facility] (Centralized Electronic Ordering - All Locations), Patient Can Go To The Location Of Their Choice, [id number] 16:05:23 Referral None recorded. Procedures None recorded. Surgeries None recorded. Imaging None recorded. Medication Orders None recorded. Patient TargetsNo targets recorded. Patient Instructions Encounter Date Encounter Id Patient Instructions Last Modified By Organization Details Last Modified Time 08/07/2022 [id number] sore throat: car e instructions [id number] Not available 08/07/2022 17:27:52 Please seek [...] in your condition between 8am-10pm, please call [facility] at [phone] to help navigate your care. [email or web address] [id number] Not available 08/07/2022 17:07:41 Reason for [...] ng. Resul t repor audra to the REPLACED BY [facility]. To preve nt error s in diagn [...] perfo rmed by real time PCR utili Foruforever0 SARS- CoV-2 test. Not Available [facility] (Centralized Electronic Ordering - All Locations) Patient Can Go To The Location Of Their Choice, [id number] 08/08/2022 16:05:23 08/07/20 22 08/08/2022 COVID -19 (NOVE L CORON AVIRU S) PCR covid-19 PCR specimen source NASAL Not Available [facility] (Centralized Electronic Ordering - All Locations) Patient Can Go To The Location Of Their Choice, [id number] 08/08/2022 16:05:23 Result Notes None recorded. Procedures Surgical History Date Name Laterality Status Provider Name and Address Organization Details Recorded Time thyroidectomy completed Sara Flores NP [address] [place], [address], [place] [facility] 08/07/2022 17:04:06 Imaging Results None recorded. Procedure Notes None recorded. Medical Equipment None Reported. Allergies Allergen ID Allergen Name Allergen Category Reaction Reaction Severity Criticality Documentation Date Start Date Code Code System Note Provider Name and Address Organization Details Recorded Time [id number] Abilify medicatio n Not available Not available Not available 08/07/2022 30766 3 RxNorm Sara Flores NP [address] [place], [address], [place] [facility] 16:57:18 684756 Bactrim medicatio n Not available Not available Not available 08/07/2022 97329 9 RxNorm Sara Flores NP [address], [place], [address], [place] [facility] 2 16:57:26 262135 aspirin medicatio n Not available Not available Not available 08/07/2022 1191 RxNorm Sara Flores , INTERNATIONAL ACCOUNTANT [address], [place], [address], [place] [facility] 16:57:50 984444 bupropion Not available Not available Not available Not available 08/07/2022 24449 RxNorm Sara Flores , INTERNATIONAL ACCOUNTANT [address], [place], [address], [place] [facility] 16:58:24 269978 Cogentin medicatio n Not available Not available Not available 08/07/2022 37709 2 RxNorm Sara Flores , INTERNATIONAL ACCOUNTANT [address], [place], [address], [place] [facility] 16:58:34 769423 Inderal medicatio n Not available Not available Not available 08/07/2022 67835 0 RxNorm Sara Flores , INTERNATIONAL ACCOUNTANT [address], [place], [address], [place] [facility] 16:58:42 373616 Motrin medicatio n Not available Not available Not available 08/07/2022 18806 8 RxNorm Sara Flores , INTERNATIONAL ACCOUNTANT [address], [place], [address], [place] [facility] 16:58:50 372689 Product containin g penicilli n (product) medicatio n Not available Not available Not available 08/07/2022 11693 8001 SNOMED Sara Flores , INTERNATIONAL ACCOUNTANT [address], [place], [address], [place] [facility] 16:59:03 168906 risperido ne medicatio n Not available Not available Not available 08/07/2022 84713 RxNorm Sara Flores , INTERNATIONAL ACCOUNTANT [address], [place], [address], [place] [facility] 16:59:16 111100 Zyprexa medicatio n Not available Not available Not available 08/07/2022 51305 3 RxNorm Sara Flores , INTERNATIONAL ACCOUNTANT [address], [place], [place], [address], [place] [facility] 16:59:27 870480 Trilafon medicatio n Not available Not available Not available 08/07/2022 71641 0 RxNorm Sara Flores , INTERNATIONAL ACCOUNTANT [address], [place], [address], [place] [facility] 2 16:59:46 430079 erythromy juan medicatio n Not available Not available Not available 08/07/2022 4053 RxNorm Sara Flores , INTERNATIONAL ACCOUNTANT [address], [place], [place], [address], [place] [facility] [...] AND REMOVE EVERY 7TH DAY WITH NAIL IRISH REMOVER 08/07 completed Not Available Not Available [...] Vitals Date Recorded Respiratory rate Oxygen saturation Heart rate Body temperature Systolic And Diastolic Provider Name and Address Organization Details Last Updated DateTime 2 16 /min 97 % 82 /min 97.3 [degF] 122/60 mm[Hg] Not Available [facility] 16:57:47 Social History Question Answer Notes LastModified by Organizat ion Details LastModified Time Tobacco Smoking Status Former Smoker May Mark, BRIANA [address], [place], [address], [place] [facility] 08/07/2022 17:05:03 Is Blood Transfusion Acceptable In An Emergency? Yes [email or web address] Information not available 08/07/2022 What Is Your Code Status? Full Code [email or web address] Information not available 08/07/2022 When Did You Quit Smoking? 16+yearssince lastcigarette [email or web address] Information not available 08/07/2022 Within The Past 12 Months, Has It Happened That The Food You Bought Just Didn't Last And You Didn't Have Money To Get More. No [email or web address] Information not available 08/07/2022 Within The Past 12 Months, Have You Worried That Your Food Would Run Out Before You Got Money To Buy More. No [email or web address] Information not available 08/07/2022 Fall Risk: Do You Feel Unsteady When Standing Or Walking? No [email or web address] Information not available 08/07/2022 We Know That How And When People Interact With Friends And Family Can Be Very Different From Person To Person. How Often Do You Have The Opportunity To See Or Talk To People That You Care About And Feel Close To? (Ex: Talking To Friends On The Phone Or Visiting Friends Or Family Or Going To [employer] Or Club Meetings) Choose Not To Answer This Question [email or web address] Information not available 08/07/2022 Excessive Alcohol Or Drug Use No [email or web address] Information not available 08/07/2022 Does This Patient Have A PCP? Yes [email or web address] Information not available 08/07/2022 Has The Patient Seen Their PCP In The Past 6 Months? Yes [email or web address] Information not available 08/07/2022 Is This Patient In Hospice? No [email or web address] Information not available 08/07/2022 We Know From Many Of Our Patients That Covering All Of Their Costs Can Be Difficult At Times. This Can Cause Stress And Impact Health. In The Past Year, Have You Been Unable To Get Any Of The Following When It Was Really Needed? No [email or web address] Information not available 08/07/2022 What Is Your Housing Situation Today? I Have Housing [email or web address] Information not available 08/07/2022 Do You Have An Out Of Hospital DNR? No [email or web address] Information not available 08/07/2022 At What Age Did You Start Smoking Tobacco? 11 [email or web address] Information not available 08/07/2022 Sex: Unknown Functional Status Question Answer Note LastModified by Organizat ion Details LastModified Time Do you use any illicit or recreational drugs? No [email or web address] Information not available 08/07/2022 What is your level of alcohol consumption? None [email or web address] Information not available 08/07/2022 Mental Status None [...] ICD10 Code Diagnosis IMO Codes Diagnosis Note [id number] May BRIANA [facility] [address] [facility] [place], [place] [address] 08/07/2022 16:53:06 08/08/2022 15:38:35 Exposure to communicable disease 265484000 Z20.822 Loss of taste 12666381 R 43.2 Pain in throat 094691117 R07.0 Health Concerns Section Related Observation LastModified by Organization Detai ls LastModified Time None Recorded Concern Status LastModified by Organization Details LastModified Time None Recorded Advance Directives Directive None Recorded Payers Insurance Date Sequence Insurance Name Policy Number Policy Gutierrez Covered Member ID Gutierrez Member ID Guarantor Name 08/07/2022 1 *SELF PAY* Maryse Shaikh [id number] Maryse Shaikh 08/08/2022 1 [place] [facility] Maryse Shaikh [id number] Maryse Shaikh Notes Date Note Type Note [...] discomfort. Sara Flores NP [address], [place], [address], [place] [facility] 08/07/2022 21:04:37 OBGyn Episode No OBEpisode recorded.
--- OUTSIDE RECORDS SUMMARY | 2025-11-11 20:48 | XMS_ITS | Patient Health Record ---
Author Organization [facility] Address [address] [place] [address] Care Team Providers Care Color Control Operator Name Role Phone Keith (RETIRED) Lino NOBLE Primary Care Provider Unavailable Abelardo Sal Unavailable [phone] Allergies Allergen (clinical drug ingredient) Drug/Non Drug Allergy documented on EMR Reaction Allergy Type Onset Date Status eggs,milk,cheese (uncoded) Unknown Allergy Active aripiprazole Abilify Unknown Drug Allergy Acti ve aspirin Aspirin Unknown Drug Allergy Active sulfamethoxazole / trimethoprim Bactrim Unknown Drug Allergy Active Cogentin Unknown Drug Allergy Active erythromycin Erythromycin Unknown Drug Allergy A ctive propranolol Inderal LA Unknown Drug Allergy Acti ve Motrin Unknown Drug Allergy Active Wellbutrin Unknown Drug Allergy Active olanzapine Zyprexa Unknown Drug Allergy Active Trigofen Unknown Drug Allergy Active Penicillin Unknown Drug Allergy Active Reason For Referral No Information Medications Medication SIG (Take, Route, Frequency, Duration) Notes Start Date End Date Status ProAir HFA Not-Takin g/PRN Omeprazole 20 MG Capsule Delayed Release TAKE ONE CAPSULE BY MOUTH EVERY DAY Oral; Duration: 30 Active Vitamin D3 25 MCG (1000 UT) Capsule 1 capsule Orally Once a day; Duration: 30 day(s) Active Multivitamin Active CoQ10 100 MG Capsule as directed Orally once a day Active Simvastatin 40 MG Tablet TAKE ONE CAPSUL E BY MOUTH 3 TIMES A DAY WITH FOOD FOR 10 DAYS Orally Once a day Active KlonoPIN 0.5 MG Tablet 1 tablet Orally prn/up to three times a day Active LaMICtal 25 MG Tablet 2-25mg in the morning (2) 100mg in the evening Orally once a day/100mg at bedtime Active Trihexyphenidyl HCl 2 MG Tablet 1 tablet Orally once in morning Artane Active Levothyroxine Sodium 100 MCG Tablet 1 tablet in the morning on an empty stomach Orally Once a day Active Geodon 80 MG Capsule 1 capsule with food Orally Twice a day Active Immunizations Vaccine Route Administration Date Status Comme nts Influenza Unknown 08/01/2021 Administered Social History Social History Additional Details Category Social Info Options Details Miscellaneous: Marital status: single Occupation: retired Section Notes: Nonsmoker > 10 yrs; no alcoh ol Nonsmoker > 10 yrs; no alcoh ol Nonsmoker > 10 yrs; no alcoh ol Problems Problem Type SNOMED Code ICD Code Onset Dates Problem Status W/U Status Risk Notes Problem Screening for malignant neoplasm of colon (241768904) Encounter for screening for malignant neoplasm of colon (Z12.11) Active confirmed Problem History of adenomatous polyp of colon (785175905) History of adenomatous polyp of colon (Z86.010) Active confirmed Problem Irritable bowel syndrome with diarrhea (941416846) Irritable bowel syndrome with diarrhea (K58.0) Active confirmed Problem Screening for malignant neoplasm of rectum (769468912) Encounter for screening for malignant neoplasm of rectum (Z12.12) Active confirmed Problem Preprocedural examination (634029190368925) Preprocedural examination (Z01.818) Active confirmed Problem Esophageal reflux finding (696905226) Gastroesophageal reflux (K21.9) Active confirmed Problem Diverticulosis of colon (698685106) Diverticulosis of colon (K57.30) Active confirmed Problem Gastroesophageal reflux disease (015628736) Gastroesophageal reflux disease, unspecified whether esophagitis present [...] Start Date Coverage End Date MEDICAID OF [employer] [address] [place] [phone] [id number] KAY CASIANO Self - patient is the insured Medical (General) History Medical History History ICD Code Screening colonoscopy 1-14-2 010--1.2cm sigmoid tubular adenoma, sigmoid diverticulosis, internal hemorrhoids PTSD, Disassociative identit y disorder, Depression, Bipolar disease--Dr. Adelina Shoemaker Hyperlipidemia Denies AK,DM,CVA,Lung disease,renal dise ase Hypothyroid in relation to thyroidectomy for thyroid cancer as below IBS--neg. celiac disease labs in 05/2015 Negative colonoscopy in 10/2016 Surgical History Surgery Date(Month/Year) Total thyroidectomy--cancer
--- OUTSIDE RECORDS SUMMARY | 2025-11-11 20:48 | XMS_ITS | Clinical Summary ---
Author Organization [facility] Address [address] [address] Phone Care Team Providers Care Hand Clipper Name Role Phone Lino Parker MD Primary [...] file Insurance MEDICARE PART A & B [facility] & [facility] MED[facility] PART A & B Member Subscriber Plan / Payer (Ef fective 2023-Present) Name:ErikpricilaMaryse gonzalez Member ID:[id number] Relation to Subscriber:Self Name:Maryse Shaikh Subscriber ID:[id number] Payer ID:[id number] Group ID:Not on file Type:Medicare Address: [place] [address] [place] A [place] [facility] Care Teams Hand Clipper Relationship Specialty Start Date End Date Lino Parker MD [address] [place] [address] [place] [address] PCP - General Internal Medicine 10/24/23 Additional Source Comments The information contained in this document represents components of the legal health record. It is not the complete legal health record.[facility]
--- OUTSIDE RECORDS SUMMARY | 2025-11-11 20:48 | XMS_ITS | Clinical Summary ---
Author Organization [facility] Address [address] [place] [address] Phone Care Team Providers Care Car Ferrier Name Role Phone Lino Parker MD Primary Care Provider [phone] Allergies Active Allergy Reactions Criticality Noted Date [...] of both feet 11/15/2024 Dissociative identity disorder 07/20/2018 Hyperlipidemia 07/20/2018 Hypothyroidism 07/20/2018 Mood disorder 07/20/2018 PTSD (post-traumatic stress disorder) 07/20/2018 Medical History Medical History Date Comments Other bipolar disorder ([facility] V24, [facility] V28) DX:Other bipolar disorder ([facility]) Post-traumatic stress disord er, unspecified DX:Post-traumatic stress dis order, unspecified 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[facility] V24, [facility] V28) DX:Dissociative identity dis order ([facility]) Mood disorder ([facility] V24) DX:M ood disorder ([facility]) No diagnosis on Niles II DX:No di agnosis on Niles II Social History Tobacco Use Types Packs/Day Years Used Date Smoking Tobacco: Never Assessed Comments Unknown Sex and Gender Information Value Date Recorded Sex Assigned at Not on file Legal Sex Female 7:54 AM EST Gender Identity Not on file Sexual Orientation Not on file Last Filed [...] 2023 Depression Screening 12/01/2024 COVID-19 Vaccine ( season) 2025 01/27/2024, 10/16/2022, 11/29/2021, Additional history [...] Insurance MEDICARE MEDICAID - [place] Care Teams Car Ferrier Relationship Specialty Start Date End Date Lino Parker MD [address] [place] [address] [place] [address] PCP - General Internal Medicine 07/13/18
--- OUTSIDE RECORDS SUMMARY | 2025-11-11 20:48 | XMS_ITS | Clinical Summary ---
Author Organization [facility] Prior to 04/30/25 Address [address] [place] [address] Care Team Providers Care Fish Hatchery Man Name Role Phone Lino Parker MD Primary Care Provider [phone] Allergies Active Allergy Reactions Criticality Noted Date [...] Advance Directives For more information, please contact: [phone] Latest Code Status on File Code Status Date Activated Date Inactivated Comments Full Code 04/15/2024 2:24 PM 04/17/2024 1:26 AM This code status was ascertained in the following way: discussion with patient . Care Teams Fish Hatchery Man Relationship Specialty Start Date End Date Lino Parker MD [address] [place] [address] [place] [address] PCP - General Internal Medicine 04/15/24
--- OUTSIDE RECORDS SUMMARY | 2025-11-11 20:48 | XMS_ITS | Encounter Summary ---
Author Organization [employer] Address [address] [place] [address] Care Team Providers Care District Ranger Name Role Phone Unavailable Primary Care Provider Unavailabl e Reason for Visit * Reason Onset Date Comments scheduling emergency/evaluation appt/OS 02/29/20 25 Encounter Details Date Type Department Care Team (Late st Contact Info) Description 02/28/2025 Telephone [facility] [address] [place] [address] Marcie Estevez DMD scheduling emergency/evaluation appt/OS Social [...]
--- OUTSIDE RECORDS SUMMARY | 2025-11-11 20:48 | XMS_ITS | Encounter Summary ---
Author Organization [employer] Address [address] [facility] [address] [place] [address] Care Team Providers Care Security Officer Name Role Phone Unavailable Primary Care Provider Unavailabl e Reason for Visit * Reason Onset Date Comments Extraction aftercare 05/11/2025 Encounter Details Date Type Department Care Team (Late st Contact Info) Description 05/11/2025 Telephone [facility] [address] [place] [address] Hardeep Gibson, DMD [address] [place] [address] Extraction aftercare Social History Tobacco Use Types [...] Sent to both clinical support and front end loader driver documented in this encounter Plan of Treatment Not on file documented as of this encounter Visit Diagnoses Not on filedocumented in this encounter
--- OUTSIDE RECORDS SUMMARY | 2025-11-11 20:48 | XMS_ITS | Clinical Summary ---
Author Organization [employer] Address [address] [facility] [address] [place] [address] Care Team Providers Care Musculoskeletal Physiotherapist Name Role Phone Unavailable Primary Care Provider [...]
--- OUTSIDE RECORDS SUMMARY | 2025-12-28 19:00 | XMS_ITS | Clinical Summary ---
Author Organization Unknown Care Team Providers Care Automatic Operator Name Role Phone JASON NOBLE, JOHNNY Unavailable Unavaila ble ROM PT, SANDRA Unavailable Unavailable LUIS HERMAN, HEIDI Unavailable Unavailable [employer]LY RETAIL WORKER, JANA Unavailable Unavailable Payers Payer Name Policy Type Policy Number Effective Date Expira tion Date [place]N [id number] ON DEMAND MEDICARE - [facility] BILLING - ABN [id number] Problems Condition Name Condition Details Condition Category [...] 2022-12 00:00: 00 12-07 23:59 :00 No [id number] 1 capsule DAILY 1 capsule DAILY (route: oral) Med Classific ation: Gastroint estinal Therapy Agents chlorpromaz ine 25 mg tablet 2022-12 2- 00:00: 00 12-07 23:59 :00 No [id number] 1 tablet EVERY AM 1 tablet EVERY AM (route: oral) Med Classific ation: Central Nervous System Agents clonazepam 0.25 mg disintegrat ing tablet 2022-12 00:00: 00 12-07 23:59 :00 No [id number] 1 tablet 3 TIMES DAILY 1 tablet 3 TIMES DAILY (route: oral) Med Classific ation: Central Nervous System Agents haloperidol 2 mg tablet 2022-12 00:00: 00 11-11 23:59 :00 No [id number] Per instruc tions AT BEDTIME Per instructio ns AT BEDTIME (route: oral) Med Classific ation: Central Nervous System Agents trazodone 50 mg tablet 2022-12 00:00: 00 12-08 23:59 :00 No [id number] 1 tablet AT BEDTIME MAY REPEAT ONE TIME NEEDED 1 tablet AT BEDTIME MAY REPEAT ONE TIME NEEDED (route: oral) Med Classific ation: Central Nervous System Agents ziprasidone 20 mg capsule 2022-12 00:00: 00 12-07 23:59 :00 No [id number] 1 capsule TWICE A DAY 1 capsule TWICE A DAY (route: oral) Med Classific ation: Central Nervous System Agents lamotrigine 100 mg tablet 2022-12 00:00: 00 11-11 23:59 :00 No [id number] Per instruc tions AT BEDTIME Per instructio ns AT BEDTIME (route: oral) Med Classific ation: Central Nervous System Agents lamotrigine 25 mg tablet 2022-12 00:00: 00 12-08 23:59 :00 No [id number] 12 tablet EVERY MORNING & 1 AT 7 PM 12 tablet EVERY MORNING & 1 AT 7 PM (route: oral) Med Classific ation: Central Nervous System Agents levothyroxi ne 125 mcg tablet 2022-12 00:00: 00 12-07 23:59 :00 No [id number] 1 tablet EVERY DAY 1 tablet EVERY DAY (route: oral) Med Classific ation: Endocrine simvastatin 40 mg tablet 2022-12 00:00: 00 12-08 23:59 :00 No [id number] 1 tablet AT BEDTIME DIRECTED 1 tablet AT BEDTIME DIRECTED (route: oral) Med Classific ation: Cardiovas cular Therapy Agents trihexyphen idyl 2 mg tablet 2022-12 00:00: 00 12-07 23:59 :00 No [id number] 1 tablet EVERY 1 tablet EVERY (route: oral) Med Classific ation: Central Nervous System Agents ziprasidone 80 mg capsule 2022-12 00:00: 00 12-07 23:59 :00 No [id number] 1 capsule TWICE A DAY 1 capsule TWICE A DAY (route: oral) Med Classific ation: Central Nervous System Agents calcium carbonate 250 mg-vitamin D3 3.125 mcg (125 unit) tablet 12-08 00:00: 00 01-31 23:59 :00 No [id number] 2 tablet NOON 2 tablet NOON (route: oral) Med Classific ation: Electroly te Balance-N utritiona l Products Centrum Silver Women 8 mg iron-400 mcg-50 mcg tablet 12-08 00:00: 00 09-24 23:59 :00 No [id number] 1 tablet NOON 1 tablet NOON (route: oral) Med Classific ation: Electroly te Balance-N utritiona l Products chlorpromaz ine 25 mg tablet 12-08 00:00: 00 02-17 23:59 :00 No [id number] 2-3 tablet 2 TIMES DAILY 2-3 tablet 2 TIMES DAILY (route: oral) Med Classific ation: Central Nervous System Agents clonazepam 0.5 mg disintegrat ing tablet 12-08 00:00: 00 12-08 23:59 :00 No [id number] 0.5 tablet 2 TIMES DAILY 0.5 tablet 2 TIMES DAILY (route: oral) Med Classific ation: Central Nervous System Agents CoQ-10 100 mg capsule 12-08 00:00: 00 09-24 23:59 :00 No [id number] 1 capsule NOON 1 capsule NOON (route: oral) Med Classific ation: Alternati ve Therapy lamotrigine 25 mg tablet 12-08 00:00: 00 23:59 :00 No [id number] 2 tablet BEDTIME 2 tablet BEDTIME (route: oral) Med Classific ation: Central Nervous System Agents levothyroxi ne 125 mcg tablet 12-08 00:00: 00 02-17 23:59 :00 No [id number] 1 tablet EVERY AM 1 tablet EVERY AM (route: oral) Med Classific ation: Endocrine omeprazole 20 mg capsule,del ayed release 12-08 00:00: 00 02-27 23:59 :00 No [id number] 1 capsule NOON 1 capsule NOON (route: oral) Med Classific ation: Gastroint estinal Therapy Agents simvastatin 40 mg tablet 12-08 00:00: 00 09-24 23:59 :00 No [id number] 1 tablet BEDTIME 1 tablet BEDTIME (route: oral) Med Classific ation: Cardiovas cular Therapy Agents trazodone 50 mg tablet 12-08 00:00: 00 09-24 23:59 :00 No [id number] 1 tablet BEDTIME 1 tablet BEDTIME (route: oral) Med Classific ation: Central Nervous System Agents trihexyphen idyl 2 mg tablet 12-08 00:00: 00 02-17 23:59 :00 No [id number] 1 tablet 2 TIMES DAILY 1 tablet 2 TIMES DAILY (route: oral) Med Classific ation: Central Nervous System Agents ziprasidone 20 mg capsule 12-08 00:00: 00 12-08 23:59 :00 No [id number] 1 capsule 2 TIMES DAILY 1 capsule 2 TIMES DAILY (route: oral) Med Classific ation: Central Nervous System Agents ziprasidone 80 mg capsule 12-08 00:00: 00 02-17 23:59 :00 No [id number] 1 capsule 2 TIMES DAILY 1 capsule 2 TIMES DAILY (route: oral) Med Classific ation: Central Nervous System Agents clonazepam 0.5 mg disintegrat ing tablet -08 00:00: 00 23:59 :00 No [id number] 0.5 tablet 3 TIMES DAILY 0.5 tablet 3 TIMES DAILY (route: oral) Med Classific ation: Central Nervous System Agents lamotrigine 100 mg tablet -08 00:00: 00 02-17 23:59 :00 No [id number] 2 tablet BEDTIME 2 tablet BEDTIME (route: oral) Med Classific ation: Central Nervous System Agents ziprasidone 20 mg capsule 12-08 00:00: 00 02-17 23:59 :00 No [id number] 1 capsule 2 TIMES DAILY 1 capsule 2 TIMES DAILY (route: oral) Med Classific ation: Central Nervous System Agents clonazepam 0.25 mg disintegrat ing tablet 01-14 00:00: 00 09-24 23:59 :00 No [id number] 1 tablet 3 TIMES DAILY 1 tablet 3 TIMES DAILY (route: oral) Med Classific ation: Central Nervous System Agents Vitamin C 1,000 mg tablet 01-14 00:00: 00 09-24 23:59 :00 No [id number] 1 tablet NOON 1 tablet NOON (route: oral) Med Classific ation: Electroly te Balance-N utritiona l Products Vitamin D3 25 mcg (1,000 unit) capsule 01-14 00:00: 00 09-24 23:59 :00 No [id number] 1 capsule NOON 1 capsule NOON (route: oral) Med Classific ation: Electroly te Balance-N utritiona l Products lamotrigine 25 mg tablet 3- 00:00: 00 09-24 23:59 :00 No [id number] 2 tablet 2 TIMES DAILY 2 tablet 2 TIMES DAILY (route: oral) Med Classific ation: Central Nervous System Agents calcium carbonate 600 mg calcium (1,500 mg) tablet 3-04 00:00: 00 09-24 23:59 :00 No [id number] 1 tablet NOON 1 tablet NOON (route: oral) Med Classific ation: Electroly te Balance-N utritiona l Products chlorpromaz ine 25 mg tablet 02-18 00:00: 00 09-24 23:59 :00 No [id number] 2 tablet EVERY AM 2 tablet EVERY AM (route: oral) Med Classific ation: Central Nervous System Agents chlorpromaz ine 25 mg tablet 02-18 00:00: 00 09-24 23:59 :00 No [id number] 3 tablet BEDTIME 3 tablet BEDTIME (route: oral) Med Classific ation: Central Nervous System Agents lamotrigine 100 mg tablet 02-18 00:00: 00 09-24 23:59 :00 No [id number] 2 tablet BEDTIME 2 tablet BEDTIME (route: oral) Med Classific ation: Central Nervous System Agents levothyroxi ne 125 mcg tablet 02-18 00:00: 00 09-24 23:59 :00 No [id number] 1 tablet EVERY AM 1 tablet EVERY AM (route: oral) Med Classific ation: Endocrine trihexyphen idyl 2 mg tablet 02-18 00:00: 00 09-24 23:59 :00 No [id number] 1 tablet EVERY AM 1 tablet EVERY AM (route: oral) Med Classific ation: Central Nervous System Agents ziprasidone 20 mg capsule 02-18 00:00: 00 09-24 23:59 :00 No [id number] 1 capsule 2 TIMES DAILY 1 capsule 2 TIMES DAILY (route: oral) Med Classific ation: Central Nervous System Agents ziprasidone 80 mg capsule 02-18 00:00: 00 09-24 23:59 :00 No [id number] 1 capsule 2 TIMES DAILY 1 capsule 2 TIMES DAILY (route: oral) Med Classific ation: Central Nervous System Agents Cipro 500 mg tablet - 00:00: 00 04-27 23:59 :00 No [id number] 1 tablet 2 TIMES DAILY 1 tablet 2 TIMES DAILY (route: oral) Med Classific ation: Anti-Infe ctive Agents metronidazo le 250 mg tablet 04-18 00:00: 00 04-27 23:59 :00 No [id number] 1 tablet 3 TIMES DAILY 1 tablet 3 TIMES DAILY (route: oral) Med Classific ation: Anti-Infe ctive Agents famotidine 20 mg tablet 2023-12 00:00: 00 09-24 23:59 :00 No [id number] 1 tablet DAILY 1 tablet DAILY (route: oral) Med Classific ation: Gastroint estinal Therapy Agents omeprazole 20 mg capsule,del ayed release 03-05 00:00: 00 09-24 23:59 :00 No [id number] 1 capsule 2 TIMES DAILY 1 capsule 2 TIMES DAILY (route: oral) Med Classific ation: Gastroint estinal Therapy Agents clindamycin HCl 300 mg capsule 05-13 00:00: 00 06-06 23:59 :00 No [id number] 1 capsule 3 TIMES DAILY 1 capsule 3 TIMES DAILY (route: oral) Med Classific ation: Anti-Infe ctive Agents oxycodone 5 mg capsule 05-13 00:00: 00 09-24 23:59 :00 No [id number] 5 mg EVERY 6 HOURS 5 mg EVERY 6 HOURS (route: oral) Med Classific ation: Analgesic , Anti-infl ammatory or Antipyret ic calcium carbonate 600 mg calcium (1,500 mg) tablet 2024-12 00:00: 00 11-04 23:59 :00 No [id number] 1 tablet NOON 1 tablet NOON (route: oral) Med Classific ation: Electroly te Balance-N utritiona l Products Centrum Silver Women 8 mg iron-400 mcg-50 mcg tablet 2024-12 00:00: 00 Yes [id number] 1 tablet NOON 1 tablet NOON (route: oral) Med Classific ation: Electroly te Balance-N utritiona l Products chlorpromaz ine 25 mg tablet 2024-12 00:00: 00 Yes [id number] 2 tablet EVERY AM 2 tablet EVERY AM (route: oral) Med Classific ation: Central Nervous System Agents chlorpromaz ine 25 mg tablet 2024-12 00:00: 00 Yes [id number] 3 tablet BEDTIME 3 tablet BEDTIME (route: oral) Med Classific ation: Central Nervous System Agents clonazepam 0.25 mg disintegrat ing tablet 2024-12 00:00: 00 11-04 23:59 :00 No [id number] 1 tablet 3 TIMES DAILY 1 tablet 3 TIMES DAILY (route: oral) Med Classific ation: Central Nervous System Agents CoQ-10 100 mg capsule 2024-12 00:00: 00 Yes [id number] 1 capsule NOON 1 capsule NOON (route: oral) Med Classific ation: Alternati ve Therapy famotidine 20 mg tablet 2024-12 00:00: 00 Yes [id number] 1 tablet EVERY PM 1 tablet EVERY PM (route: oral) Med Classific ation: Gastroint estinal Therapy Agents lamotrigine 100 mg tablet 2024-12 00:00: 00 Yes [id number] 2 tablet BEDTIME 2 tablet BEDTIME (route: oral) Med Classific ation: Central Nervous System Agents lamotrigine 25 mg tablet 2024-12 00:00: 00 Yes [id number] 2 tablet 2 TIMES DAILY 2 tablet 2 TIMES DAILY (route: oral) Med Classific ation: Central Nervous System Agents levothyroxi ne 125 mcg tablet 2024-12 00:00: 00 Yes [id number] 1 tablet EVERY AM 1 tablet EVERY AM (route: oral) Med Classific ation: Endocrine omeprazole 20 mg capsule,del ayed release 2024-12 00:00: 00 Yes [id number] 1 capsule 2 TIMES DAILY 1 capsule 2 TIMES DAILY (route: oral) Med Classific ation: Gastroint estinal Therapy Agents oxycodone 5 mg capsule 2024-12 00:00: 00 Yes [id number] 5 mg EVERY 6 HOURS 5 mg EVERY 6 HOURS (route: oral) Med Classific ation: Analgesic , Anti-infl ammatory or Antipyret ic simvastatin 40 mg tablet 2024-12 00:00: 00 Yes [id number] 1 tablet BEDTIME 1 tablet BEDTIME (route: oral) Med Classific ation: Cardiovas cular Therapy Agents trazodone 50 mg tablet 2024-12 00:00: 00 Yes [id number] 1 tablet BEDTIME 1 tablet BEDTIME (route: oral) Med Classific ation: Central Nervous System Agents trihexyphen idyl 2 mg tablet 2024-12 00:00: 00 Yes [id number] 1 tablet EVERY AM 1 tablet EVERY AM (route: oral) Med Classific ation: Central Nervous System Agents Vitamin C 1,000 mg tablet 2024-12 00:00: 00 Yes [id number] 1 tablet NOON 1 tablet NOON (route: oral) Med Classific ation: Electroly te Balance-N utritiona l Products Vitamin D3 25 mcg (1,000 unit) tablet 2024-12 00:00: 00 Yes [id number] 1 tablet NOON 1 tablet NOON (route: oral) Med Classific ation: Electroly te Balance-N utritiona l Products ziprasidone 20 mg capsule 2024-12 00:00: 00 Yes [id number] 1 capsule 2 TIMES DAILY 1 capsule 2 TIMES DAILY (route: oral) Med Classific ation: Central Nervous System Agents ziprasidone 80 mg capsule 2024-12 00:00: 00 Yes [id number] 1 capsule 2 TIMES DAILY 1 capsule 2 TIMES DAILY (route: oral) Med Classific ation: Central Nervous System Agents clonazepam 0.25 mg disintegrat ing tablet 2024-12 00:00: 00 Yes [id number] 1 tablet EVERY AM 1 tablet EVERY AM (route: oral) Med Classific ation: Central Nervous System Agents clonazepam 0.25 mg disintegrat ing tablet 2024-12 00:00: 00 Yes [id number] 1 tablet NEEDED 1 tablet NEEDED (route: [...] AWARENESS FOR SAFETY AND WILL NOTIFY CLINICAL MAINTENANCE TEAM MEMBER AND PHYSICIAN/PROVIDER WITH ANY CHANGE IN CONDITION. [code = SKILLED NURSE WILL MAINTAIN SITUATIONAL AWARENESS FOR SAFETY AND WILL NOTIFY CLINICAL MAINTENANCE TEAM MEMBER AND PHYSICIAN/PROVIDER WITH ANY CHANGE IN CONDITION.] [...] CARE WILL BE ESTABLISHED THAT MEETS PATIENT'S GROUP HOME NEEDS AND INCLUDES PATIENT GOAL FOR HOME [...] Notes <paragraph>[Visit Date: 2024 by HEIDI SMITH RN]:</paragraph><paragraph>GINO CALLED ME MIDDLE OF MORNING SEVERAL TIMES TODAY - SENT HER TO VOIC[facility] I WAS WITH ANOTHER PATIENT. GINO WANTED TO TAKE A NAP AND WANTED TO KNOW WHAT TIME I WAS COMING. I ARRIVE EVERY DAY BETWEEN 11 AND 12. DURING VISIT I ASKED GINO TO TEXT ME INSTEAD OF CALLING I AM WORKING. NO NEW ISSUES.</paragraph> Encounters Start Date/Time End Date/Time Encounter Type Admission Type Attending [facility] Care Department Encounter ID Discharge Date Discharge Status Discharge Condition Discharge Reason Percent Goals Met 2025-10-31 00:00:00 2025-12-29 00:00:00 Outpatient RECERTIFIC ATHEIDI GONZALEZ [facility] [id number] 4.17
== END 2025-11-11 19:26 | disposition home or self-care (01) ==
PROVIDERS: Emergency Provider Emergency Medicine; PCP Internal Medicine
DX: S09.90XA Unspecified injury of head, initial encounter (principal); W22.09XA Striking against other stationary object, initial encounter; Y93.9 Activity, unspecified; Y92.000 Kitchen of unspecified non-institutional (private) residence as the place of occurrence of the external cause; Y99.9 Unspecified external cause status
CPT/HCPCS: 70450; 99282; 99284

== ENCOUNTER → 2025-11-11 15:28 | Outpatient (BNV) | payer MEDICARE, MEDICAID, SELFPAY | PROVIDERS: Emergency Provider Emergency Medicine; Visit Provider Radiology Diagnostic Radiology | DX: R42 Dizziness and giddiness (principal); W22.09XA Striking against other stationary object, initial encounter | CPT/HCPCS: 70450 ==

== ENCOUNTER 2025-11-28 16:20 | Emergency (ER) | payer MEDICARE, MEDICAID, SELFPAY ==
--- OUTSIDE RECORDS SUMMARY | 2025-11-25 23:59 | XMS_ITS | Continuity of Care Document ---
Author Organization [facility] Address [address] [place] [address]- Care Team Providers Care Asic Engineer Name Role Phone Parris NOBLE, Francis Judge Primary Care Physician [place] [facility] [place]26[place]25 - 11/25/25 [facility] [address] [place] [address]- Encounter Type: Triage Allergies, Adverse Reactions, Alerts [...] Recorded zoster vaccine, inactivated 07/25/23 Recorded SARS-CoV-2(COVID-19)mRNA-LNP vac(nvn302) 01/27/24 Recorded [id number] bivalent booster vax 10/16/22 Recorded tetanus/diphtheria/pertussis, acel(Tdap) [...] - Primary Care Member Role: PCP Address: [address] [place] [address] Telecom: Care Team Related Persons Name: KAITY SWIFT Name: YVETTE CASIANO Insurance Providers Guarantor name: KAY CASIANO Health Plan Information #: 1 Payer: MEDICARE B Payer Identifier: SHAR Member Number: [id number] Group Number: SHAR Subscriber Identifier: NA Relationship to Subscriber: self Coverage Type: NA Coverage Verification Date: NA Telecom: NA Address: NA Health Plan Information #: 2 Payer: [employer] Payer Identifier: NA Member Number: [id number] Group Number: SHAR Subscriber Identifier: NA Relationship to Subscriber: self Coverage Type: MEDICAID Coverage Verification Date: NA Telecom: NA Address: NA
--- NOTE | ~2025-11-28 | CT_ITS ---
CLINICAL HISTORY: injury CT head without contrast Comparison: 11/11/2025 Findings: No acute intracranial fluid collection or hematoma. Moderate chronic white matter disease with volume loss. No acute process in sinuses or mastoids. No acute bony abnormality. Impression: No acute intracranial process This document has been electronically signed by: Clay Jimenez MD on 11/28/2025 19:22:09
[2025-11-28 16:27] VITALS: BP 140/80; PULSE 72; O2SAT 96
[2025-11-28 16:36] VITALS: BP 170/70; PULSE 82; RESP 18; TEMP 36.4; O2SAT 97; BMI 23.6
--- NOTE | 2025-11-28 16:37 | ED_ITS ---
HPI - General Adult General Chief complaint: Head Injury Stated complaint: hit head w/ freezer door Time Seen by Provider: 11/28/25 17:15 Source: patient, RN notes reviewed and old records reviewed Mode of arrival: EMS Limitations: no limitations History of Present Illness ED Provider: Jaquelin HPI narrative: 65-year-old female with a past medical history significant for dissociative identity disorder, PTSD, bipolar disorder presents for evaluation of a head injury. Patient reports that she was trying to get some a out of the Fridge when ?1 of my personalities hit my head on the freezer door. ? There was no loss of consciousness. The patient reports a mild headache. She denies any bleeding from the area. She reports that she was planning to go to respite with a bed available [facility]. Denies any suicidal ideation. Related Data Home Medications ?Medication ?Instructions ?Recorded ?Confirmed clonazepam 0.25 mg disintegrating 0.25 mg PO TID PRN a nxiety 05/16/24 11/28/25 tablet famotidine 20 mg tablet 20 mg PO BEDTIME Acid Reflux 05/16/24 11/28/25 lamotrigine 200 mg tablet 200 mg PO BEDTIME 05/16/24 1 lamotrigine 25 mg tablet 50 mg PO BID 05/16/24 omeprazole 20 mg capsule,delayed 20 mg PO DAILY 11/28/25 release ascorbic acid (vitamin C) 1,000 mg 1,000 mg PO DAILY 0 05/19/24 11/28/25 tablet (Vitamin C) calcium carbonate 600 mg PO DAILY 05/19/24 cholecalciferol (vitamin D3) 25 25 mcg PO DAILY 11/28/25 mcg (1,000 unit) capsule (Vitamin D3) coenzyme Q10 100 mg capsule 100 mg PO DAILY 05/19/24 1 (CoQ-10) [id number] 8 mg-folic 400 1 tab PO DAILY 05/1911/28/25 mcg-K 50 mcg-lutein 300 mcg tablet (Centrum Silver Women) levothyroxine 112 mcg tablet 112 mcg PO DAILY 11/29/25 11/29/25 Previous Rx's ?Medication ?Instructions ?Recorded chlorpromazine 25 mg tablet 50 mg (2 x 25 mg) PO DAILY 30 days 12/02/23 #60 tabs chlorpromazine 25 mg tablet 75 mg (3 x 25 mg) PO BEDTI ME 30 12/02/23 days #90 tabs simvastatin 40 mg tablet 40 mg PO BEDTIME 30 days #30 tabs 12/02/23 trazodone 50 mg tablet 50 mg PO BEDTIME PRN Insomni a 30 12/02/23 days #30 tabs trihexyphenidyl 2 mg tablet 2 mg PO QAM 30 days #30 ta bs 12/02/23 ziprasidone HCl 20 mg capsule 20 mg PO BIDWM 30 days # 60 caps 12/02/23 ziprasidone HCl 80 mg capsule 80 mg PO BIDWM 30 days # 60 caps 12/02/23 lidocaine 5 % topical patch 1 patch topical DAILY #15 ea 06/27/25 (Lidoderm) Allergies Allergy/AdvReac Type Severity Reaction Status Date / Time Penicillins (PENICILLINS) Allergy Severe HIVES Verified 11/28/25 16:38 sulfamethoxazole (From Allergy Severe DIARRHEA Verified 11/28/25 16:38 BACTRIM) trimethoprim (From BACTRIM) Allergy Severe DIARRHEA Verified 11/28/25 16:38 aripiprazole (From ABILIFY) Allergy Intermediate ATAXIA Verified 11/28/25 16:38 aspirin (ASPIRIN) Allergy Intermediate STOMACH Verified 11/28/25 16:38 CRAMPS benztropine (From COGENTIN) Allergy Intermediate CONFUSION, Verified 11/28/25 16:38 memory loss bupropion (BUPROPION) Allergy Intermediate DIZZINESS Verified 11/28/25 16:38 erythromycin base Allergy Intermediate GI UPSET Verified 11/28/25 16:38 (ERYTHROMYCIN BASE) ibuprofen (From MOTRIN) Allergy Intermediate STOMACH Verified 11/28/25 16:38 CRAMPS olanzapine (From ZYPREXA) Allergy Intermediate TONGUE Verified 11/28/25 16:38 MOVEMENTS perphenazine (From TRILAFON) Allergy Intermediate ARM AND Verified 11/28/25 16:38 LEG MOVEMENTS, FALL risperidone (From RISPERDAL) Allergy Intermediate TONGUE Verified 11/28/25 16:38 MOVEMENT milk Allergy Drowsy Verified 11/28/25 16:38 egg AdvReac Stomach Verified 11/28/25 16:38 Upset From INDERAL Allergy Intermediate WHEEZING Uncoded 11/28/25 16:38 Review of Systems 2 Constitutional: Constitutional: Denies body ache(s), Denies chills, Denies fever(s), Denies frequent falls and Reports headache(s) Eyes: Eyes: Denies blurry vision ENT: Denies vertigo, Denies dizziness and Reports headache(s) Cardiovascular: Cardiovascular: Denies chest pain and Denies dyspnea on exertion Respiratory: Respiratory: Denies cough and Denies dyspnea on exertion Gastrointestinal: Gastrointestinal: Denies abdominal pain Musculoskeletal: Musculoskeletal: Denies back pain Integumentary/Breasts: Skin/Breast: Denies rash Neurologic: Denies vertigo, Denies dizziness, Denies frequent falls and Reports headache(s) Psychiatric: Psychiatric: Denies anxiety, Reports mood swings and Denies suicidal ideation PMFSH Past Medical History Medical History Routine medical exam CKD (chronic kidney disease), stage IV Bipolar disorder Neck pain Murmur GERD (gastroesophageal reflux disease) Hypothyroidism Irritable bowel syndrome (IBS) Hyperlipidemia Anxiety and depression Dissociative identity disorder Surgical History Hx of colonoscopy History of total thyroidectomy Social History Social History Household Members: None Household Members Other:: roommate Housing: Apartment Are you a primary med care manager to a significant other at home: No Do you presently have visiting nurse or other home services: Yes (pt has VNA for only one day prior to admission.) Alcohol intake: never Comment: aware of trip hazard Patient Tobacco Use Status: Former Tobacco user Tobacco use type: Cigarette Cigarette Packs Per Day: 1 Cigarettes Per Day: 20.0 Years Smoked: 20 e-Cigarette/Vaping Use: Never Used Second Hand Smoke Exposure: No Advance Directives: No Advance Directives Information Provided: No Do you have a plan to hurt others: No Plan service: No Sexual orientation: Did not discuss Physical Exam ED Vital Signs: Vital Signs - 24 hr 11/28/25 16:36 11/29/25 06:49 Temperature 97.6 F 97.6 F Pulse Rate 82 72 Respiratory Rate 18 12 Blood Pressure 170/70 H 116/69 Pulse Oximetry 97 99 Oxygen Delivery Method Room Air Room Air BMI result Body Mass Index 23.6 Const General: healthy appearing, comfortable, no acute distress, alert and awake Nutritional Appearance: well nourished Orientation/consciousness: patient oriented x3 HENMT Other: No contusion, abrasion, hematoma, laceration to the scalp Head: Yes normocephalic and Yes atraumatic Eyes Eyelids: Yes eyelids normal Conjunctivae: conjunctivae normal Sclerae: sclerae normal Corneas: corneas normal Pupils: Equal, round and reactive pupils present EOM: EOMs intact bilaterally Neck Neck: Yes full ROM Resp Effort & Inspection: normal respiratory effort, able to speak in complete sentences and not labored Cardio Rate: regular rate Rhythm: regular rhythm GI Inspection: No distended Palpation (GI): Soft to palpation, not firm, nontender, no guarding and not rigid Skin General skin exam: no rashes or lesions noted and elasticity normal Neuro General: patient oriented x3 Cranial nerves: Yes CN's II-XII intact bilaterally, Yes Equal, round and reactive pupils present and Yes Bilaterally intact EOM present Cognition (Neuro): normal cognition Extrem Other: Moving all extremities well without any obvious deformities Course Course Course Narrative: Rapid medical examination performed in triage by Rosemary Mcgee PA-C: Patient is a 65 year old female presenting to the emergency department with a headache after her split personality smacked her head on her freezer door - intentionally. Patient states she was getting something out of the fridge when her split personality took over and forced her head into the freezer. Detailed physical exam and review of systems are deferred to the direct marketing representative. senior account director aware. Reevaluation(s) Reevaluation #1: The patient is medically cleared, she has been evaluated by the care team. Plan for discharge to respite, this may not happen until tomorrow morning. The patient is placed in physician observation status Time: 20:21 Reevaluation #2: Time: 07:08 Date: 11/29/25 Provider: Seble Staley, DO Patient in physician observation for psychiatric evaluation.? No acute events reported overnight. No current complaints. VS stable.? Patient is pending CARE team evaluation. Will continue to monitor. Reevaluation #3: 12:43 PM 11/29/2025 (MAKI SINGH): Cleared by care team going to respite please end physician observation Medications Administered Generic Name Dose Route Start Last Admin Trade Name Freq PRN Reason Stop Dose Admin Ascorbic Acid 1,000 mg 11/29/25 09:00 11/29/25 11:49 Ascorbic Acid 500 Mg Tablet PO 1,000 mg DAILY NAT Administration Calcium Carbonate 600 mg 11/29/25 09:00 11/29/25 11:49 Calcium Oyster Shell Elemental 500 Mg Tablet PO 600 mg DAILY NAT Administration Chlorpromazine HCl 50 mg 11/29/25 09:00 11/29/25 11:49 Chlorpromazine Hcl 25 Mg Tablet PO 50 mg DAILY NAT Administration Lamotrigine 50 mg 11/29/25 09:00 11/29/25 11:51 Lamotrigine 25 Mg Tablet PO 50 mg BID NAT Administration Levothyroxine Sodium 112 mcg 11/29/25 11:45 11/29/25 12:19 Levothyroxine Sodium 112 Mcg Tablet PO 112 mcg DAILY@0600 NAT Administration Lidocaine 1 patch 11/29/25 09:00 11/29/25 12:11 Lidocaine 4 % Patch Adh..Patch TRANSDERMA Not Given DAILY [facility] Protocol Multivitamins/Vitamin C 1 tab 11/29/25 09:00 11/29/25 12:18 Multivitamin Tablet PO 1 tab DAILY NAT Administration Omeprazole 20 mg 11/29/25 07:15 11/29/25 11:50 Omeprazole 20 Mg Capsule.Dr PO 20 mg DAILY@0630 NAT Administration Trihexyphenidyl HCl 2 mg 11/29/25 10:45 11/29/25 11:50 Trihexyphenidyl Hcl 2 Mg Tablet PO 2 mg DAILY NAT Administration Vitamin D 25 mcg 11/29/25 09:00 11/29/25 11:51 Cholecalciferol (Vitamin D3) 25 Mcg Tablet PO 25 mcg DAILY NAT Administration Ziprasidone 80 mg 11/29/25 08:00 11/29/25 11:51 Ziprasidone 80 Mg Capsule PO 80 mg BIDWM NAT Administration Ziprasidone 20 mg 11/29/25 08:00 11/29/25 11:51 Ziprasidone 20 Mg Capsule PO 20 mg BIDWM NAT Administration Discontinued Medications Generic Name Dose Route Start Last Admin Trade Name Mounika HUNTERN Reason Stop Dose Admin Lorazepam 2 mg 11/28/25 23:33 11/28/25 23:38 Lorazepam 1 Mg Tablet PO 12/29/25 23:34 2 mg ONCE ONE Administration Medical Decision Making Medical Decision Making [facility] Narrative: 65-year-old female presents for evaluation of a head injury. She appears to have a very minor head injury. Plan for a CT scan of the brain given that she does have multiple psychiatric illnesses and may not be the most reliable historian but she is not appear altered at this time. Once medically clear she can be evaluated by the care team. Differential Diagnosis Differential Diagnoses: The differential diagnosis associated with the presentation includes Minor head injury Contusion Dissociated of identity disorder Bipolar disorder Intracranial hemorrhage Admission/Observation Consideration of admission/observation: Escalation of care including admission/observation considered Lab Data [facility] Lab Attestation statement: I reviewed the patient's lab results. No leukocytosis or anemia. Normal platelet count. No electrolyte abnormalities warranting intervention. The patient has a stable chronic kidney disease that has consistent with her baseline. 11/28/25 17:00 11/28/25 16:59 Labs: Lab Results 11/28/25 11/28/25 11/28/25 Range/Units 16:59 17:00 17:53 WBC 6.3 (4.8-10.8) X10*3/uL RBC 4.06 L (4.20-5.50) X10*6/uL Hgb 12.4 (12.0-16.0) g/dl Hct 35.9 L (37.0-47.0) % MCV 88.4 (80.0-98.0) fL MCH 30.5 (27.0-33.0) pg MCHC 34.5 (31.0-35.0) g/dl RDW 12.5 (11.0-16.0) % Plt Count 186 (160-400) X10*3/uL MPV 8.4 L (9.4-12.3) fL Immature Gran % (Auto) 0.2 (0.0-0.4) % Neut % (Auto) 72.0 (45-73) % Lymph % (Auto) 21.1 (20-40) % Carver % (Auto) 6.2 (2-11) % Eos % (Auto) 0.0 (0-4) % Baso % (Auto) 0.5 (0-2) % Lymph # (Auto) 1.3 (1.2-4.9) X10*3/uL Carver # (Auto) 0.4 (0.1-1.2) X10*3/uL Eos # (Auto) 0.0 (0.0-0.4) X10*3/uL Baso # (Auto) 0.0 (0.0-0.2) X10*3/uL Abs Immat Gran (auto) 0.01 (0.00-0.03) X10*3/uL Absolute Neuts (auto) 4.5 (2.0-8.3) x10*3/uL Absolute Nucleated RBC 0.000 (0.0-0.012) X10*3/uL Nucleated RBC % (auto) 0.0 (0.0-0.2) /100WBC Sodium 144 (135-145) mmol/L Potassium 4.0 (3.3-5.1) mmol/L Chloride 108 (96-108) mmol/L Carbon Dioxide 27 (22-29) mmol/L Anion Gap 13 (12-20) BUN 22 H (9-16) mg/dL Creatinine 1.82 H (0.5-1.4) mg/dL Estim Creat Clear Calc 24.7 Estimated GFR 28 Random Glucose 84 (60-115) mg/dL Calcium 10.1 (8.4-10.2) mg/dL Total Bilirubin 0.5 (0.0-1.0) mg/dL AST 32 H (5-31) U/L ALT 35 H (0-31) U/L Alkaline Phosphatase 44 (39-117) U/L Total Protein 7.3 (6.5-8.0) g/dL Albumin 5.0 (3.5-5.0) g/dL Urine Color Yellow Urine Appearance Clear Urine pH 6.0 (5.0-9.0) Ur Specific [place] <= 1.005 (1.005-1.025) Urine Protein Negative (Neg-Trace) mg/dL Urine Glucose (UA) Negative (Negative) mg/dL Urine Ketones Negative (Negative) mg/dL Urine Blood Negative (Negative) Urine Nitrite Negative (Negative) Ur Leukocyte Esterase Trace H (Negative) Urine RBC 0-2 (0-2) /HPF Urine WBC 0-5 (0-5) /HPF Ur Squamous Epith Cells 0-2 (0-2) /HPF Urine Bacteria None Seen (None Seen) Hyaline Casts 0-2 (0-2) /LPF Salicylates < 5.0 L (15-30) mg/dL Urine Opiates Screen Not Detected (Not Detect) Ur Buprenorphine Scrn Not Detected (Not Detect) ng/mL Ur Oxycodone Screen Not Detected (Not Detect) ng/mL Urine Methadone Screen Not Detected (Not Detect) ng/mL Urine Fentanyl Screen Not Detected (Not Detect) Acetaminophen < 3 (<30) mcg/mL Ur Barbiturates Screen Not Detected (Not Detect) Ur Phencyclidine Scrn Not Detected (Not Detect) Ur Amphetamines Screen Not Detected (Not Detect) U Benzodiazepines Scrn Not Detected (Not Detect) Urine Cocaine Screen Not Detected (Not Detect) U Marijuana (THC) Screen Not Detected (Not Detect) Ethyl Alcohol < 10 mg/dL Radiology Impression Discussion of test interpretation with radiology: I have reviewed the radiologist's reading. Radiologist Impression: Findings: No acute intracranial fluid collection or hematoma. Moderate chronic white matter disease with volume loss. No acute process in sinuses or mastoids. No acute bony abnormality. Impression: No acute intracranial process This document has been electronically signed by: Clay Jimenez MD on 11/28/2025 19:22:09 Discharge Plan Discharge Clinical Impression: Closed head injury, Dissociative identity disorder Patient Disposition: Xfer Other Transfer Details: respite Instructions: Head Injury (ED), Conversion Disorder (ED) Additional Instructions: You were seen in our Emergency Department today for treatment of a behavioral health issue. It is important after your visit that you follow up with either your behavioral health provider or a primary care doctor within 7 days.? If you have trouble finding a therapist you can reach out to [address] [phone] The National Suicide and Crisis Lifeline can be reached 7 days a week 24 hours a day.? Call 988 to speak with someone.? Return for any worsening symptoms or concerns such as thoughts of self harm or harm to others. Please call 911 if you feel your mental health is worsening.? Prescriptions: No Action trazodone 50 mg Tablet 50 mg PO BEDTIME PRN (Reason: Insomnia) 30 Days Qty: 30 0RF ziprasidone HCl 80 mg capsule 80 mg PO BIDWM 30 Days Qty: 60 0RF simvastatin 40 mg tablet 40 mg PO BEDTIME 30 Days Qty: 30 0RF ziprasidone HCl 20 mg Capsule 20 mg PO BIDWM 30 Days Qty: 60 0RF Rx Instructions: give with food (meal/snack) chlorpromazine 25 mg Tablet 50 mg PO DAILY 30 Days Qty: 60 0RF chlorpromazine 25 mg Tablet 75 mg PO BEDTIME 30 Days Qty: 90 0RF trihexyphenidyl 2 mg tablet 2 mg PO QAM 30 Days Qty: 30 0RF lamotrigine 25 mg tablet 50 mg PO BID famotidine 20 mg tablet 20 mg PO BEDTIME omeprazole 20 mg capsule,delayed release(DR/EC) 20 mg PO DAILY lamotrigine 200 mg tablet 200 mg PO BEDTIME clonazepam 0.25 mg tablet,disintegrating 0.25 mg PO TID PRN (Reason: anxiety) ascorbic acid (vitamin C) [Vitamin C] 1,000 mg Tablet 1,000 mg PO DAILY calcium carbonate 600 mg calcium (1,500 mg) Tablet 600 mg PO DAILY cholecalciferol (vitamin D3) [Vitamin D3] 25 mcg (1,000 unit) Capsule 25 mcg PO DAILY coenzyme Q10 [CoQ-10] 100 mg Capsule 100 mg PO DAILY Centrum Silver Women 8 mg iron-400 mcg-50 mcg Tablet 1 tab PO DAILY lidocaine [Lidoderm] 5 % adhesive patch,medicated 1 patch topical DAILY Qty: 15 0RF Rx Instructions: leave on most painful area for up to 12 hrs levothyroxine 112 mcg tablet 112 mcg PO DAILY Print Language: Korean
[2025-11-28 17:05] LABS: Hematocrit 35.9 % (37.0-47.0); Hemoglobin 12.4 g/dl (12.0-16.0); Imm Gran Abs Auto 0.01 X10*3/uL (0.00-0.03); Imm Gran Pct Auto 0.2 % (0.0-0.4); Lymphocytes Absolute Auto 1.3 X10*3/uL (1.2-4.9); MANUAL DIFF FLAG NO; Mean Corpuscular HGB Conc 34.5 g/dl (31.0-35.0); Mean Corpuscular Hemoglobin 30.5 pg (27.0-33.0); Mean Corpuscular Volume 88.4 fL (80.0-98.0); NRBC Abs Auto 0.000 X10*3/uL (0.0-0.012); NRBC Pct Auto 0.0 /100WBC (0.0-0.2); Platelet Count 186 X10*3/uL (160-400); Red Blood Count 4.06 X10*6/uL (4.20-5.50); White Blood Count 6.3 X10*3/uL (4.8-10.8)
[2025-11-28 17:32] LABS: Anion Gap 13 (12-20); Blood Urea Nitrogen 22 mg/dL (9-16); Calcium 10.1 mg/dL (8.4-10.2); Carbon Dioxide 27 mmol/L (22-29); Chloride 108 mmol/L (96-108); Creatinine Clr Calc Pharmacy 24.7; Estimated Glomerular Filt Rate 28; Potassium 4.0 mmol/L (3.3-5.1); Sodium 144 mmol/L (135-145)
[2025-11-28 17:33] LABS: Acetaminophen LAB < 3 mcg/mL (<30); Alanine Aminotransferase 35 U/L (0-31); Albumin Level 5.0 g/dL (3.5-5.0); Alkaline Phosphatase 44 U/L (39-117); Aspartate Amino Transferase 32 U/L (5-31); Salicylate < 5.0 mg/dL (15-30); Total Protein 7.3 g/dL (6.5-8.0)
[2025-11-28 18:01] LABS: Appearance Urine Clear; Glucose Urine UA Negative (Negative); PH 6.0 (5.0-9.0); Specific Gravity - Urine <= 1.005 (1.005-1.025); UMIC TRIGGER UA YES
[2025-11-28 18:14] LABS: Cannabinoid Screen Urine Not Detected (Not Detect)
--- OUTSIDE RECORDS SUMMARY | 2025-11-28 18:37 | XMS_ITS | Clinical Summary ---
Author Organization [facility], Address [address] [address] [place] [address] Phone Care Team Providers Care Sewer System Supervisor Name Role Phone Francis Nye MD Primary Care Provider [phone] Allergies Active Allergy Reactions Criticality Noted Date [...] Date Stage 3b chronic kidney disease 09/27/2025 [place] adverse reaction <Subsequent> 09/27/2025 [place] adverse reaction <Sequela> 09/27/2025 Encounters Date Type Department Care Team Description 09/27/2025 3:15 PM EDT Office Visit [facility] [address] [place] [id number] Giorgi Escalante MD Stage 3b chronic kidney disease (HCC) (Primary Dx); [place] adverse reaction <Sequela> 09/21/2025 Documentation Only [facility] [address] [place] [address] Hyun Mas MA from Last [...] Orientation Not on file Plan of Treatment Upcoming Encounters Date Type Department Care Team (Late st Contact Info) Description 12/27/2025 3:15 PM EST Office Visit [facility] [address] [place] [address] Giorgi Escalante MD [address] [place] [address] [place] [phone] Health Maintenance Due Date Last Done Comments [...] topic Insurance Medicare Medicaid [place] Care Teams Sewer System Supervisor Relationship Specialty Start Date End Date Francis Nye MD [facility] [place] PCP - General Internal Medicine 09/21/25
--- OUTSIDE RECORDS SUMMARY | 2025-11-28 18:37 | XMS_ITS | Encounter Summary ---
Author Organization [employer] Address [address] [place] [address] Care Team Providers Care Playground Aide Name Role Phone Unavailable Primary Care Provider Unavailabl e Reason for Visit * Reason Onset Date Comments scheduling emergency/evaluation appt/OS 02/29/20 25 Encounter Details Date Type Department Care Team (Late st Contact Info) Description 02/28/2025 Telephone [facility] [address] [place] [address] Marcie Estevez DMD scheduling emergency/evaluation appt/OS Social [...]
--- OUTSIDE RECORDS SUMMARY | 2025-11-28 18:37 | XMS_ITS | Clinical Summary ---
Author Organization [facility] Prior to 04/30/25 Address [address] [place] [address] Care Team Providers Care Client Service Consultant Name Role Phone Lino Parker MD Primary Care Provider [phone] Allergies Active Allergy Reactions Criticality Noted Date [...] Advance Directives For more information, please contact: [phone] Latest Code Status on File Code Status Date Activated Date Inactivated Comments Full Code 04/15/2024 2:24 PM 04/17/2024 1:26 AM This code status was ascertained in the following way: discussion with patient . Care Teams Client Service Consultant Relationship Specialty Start Date End Date Lino Parker MD [address] [place] [address] [place] [address] PCP - General Internal Medicine 04/15/24
--- OUTSIDE RECORDS SUMMARY | 2025-11-28 18:37 | XMS_ITS | Patient Health Record ---
Author Organization [facility] Address [address] [place] [phone] Care Team Providers Care Government Affairs Manager Name Role Phone Keith (RETIRED) Lino NOBLE Primary Care Provider Unavailable Abelardo Sal Unavailable [phone] Allergies Allergen (clinical drug ingredient) Drug/Non Drug [...] Problem Screening for malignant neoplasm of colon (669596142) Encounter for screening for malignant neoplasm of colon (Z12.11) Active confirmed Problem History of adenomatous polyp of colon (765019417) History of adenomatous polyp of colon (Z86.010) Active confirmed Problem Irritable bowel syndrome with diarrhea (334633691) Irritable bowel syndrome with diarrhea (K58.0) Active confirmed Problem Screening for malignant neoplasm of rectum (538544185) Encounter for screening for malignant neoplasm of rectum (Z12.12) Active confirmed Problem Preprocedural examination (556710234379723) Preprocedural examination (Z01.818) Active confirmed Problem Esophageal reflux finding (420199808) Gastroesophageal reflux (K21.9) Active confirmed Problem Diverticulosis of colon (035629686) Diverticulosis of colon (K57.30) Active confirmed Problem Gastroesophageal reflux disease (916798904) Gastroesophageal reflux disease, unspecified whether esophagitis present [...] Start Date Coverage End Date MEDICAID OF [employer] [address] [place] [phone] [id number] KAY CASIANO Self - patient is the insured Medical (General) History Medical History History ICD Code Screening colonoscopy 1-14-2 010--1.2cm sigmoid tubular adenoma, sigmoid diverticulosis, internal hemorrhoids PTSD, Disassociative identit y disorder, Depression, Bipolar disease--Dr. Adelina Shoemaker Hyperlipidemia Denies [place],DM,CVA,Lung disease,renal dise ase Hypothyroid in relation to thyroidectomy for thyroid cancer as below IBS--neg. celiac disease labs in 05/2015 Negative colonoscopy in 10/2016 Surgical History Surgery Date(Month/Year) Total thyroidectomy--cancer
--- OUTSIDE RECORDS SUMMARY | 2025-11-28 18:37 | XMS_ITS | Clinical Summary ---
Author Organization [facility] Address [address] [address] Phone Care Team Providers Care Ladderman Name Role Phone Lino Parker MD Primary [...] file Insurance MEDICARE PART A & B [facility] PART A & B Member Subscriber Plan / Payer (Ef fective 2023-Present) Name:ErikpricilaMaryse gonzalez Member ID:[id number] Relation to Subscriber:Self Name:Maryse Shaikh Subscriber ID:[id number] Payer ID:[id number] Group ID:Not on file Type:Medicare Address: [place] [address] [place] [facility] Care Teams Ladderman Relationship Specialty Start Date End Date Lino Parker MD [address] [place] [address] [place] [address] PCP - General Internal Medicine 10/24/23 Additional Source Comments The information contained in this document represents components of the legal health record. It is not the complete legal health record.[facility]
--- OUTSIDE RECORDS SUMMARY | 2025-11-28 18:37 | XMS_ITS | Encounter Summary ---
Author Organization [facility] Address [address] [place] [address] Phone Care Team Providers Care Winding Machine Operator Name Role Phone Francis Nye MD Primary Care Provider [phone] Encounter Details Date Type Department Care Team (Late st Contact Info) Description 09/21/2025 Documentation Only [facility] [address] [place] [address] Hyun MasSAN [place], [place] [address] [place] [address] Social History Tobacco Use Types Packs/Day Years Used Date Smoking Tobacco: Never Assessed Comments Unknown Sex and Gender Information Value Date Recorded Sex Assigned at Not on file Legal Sex Female 9:57 AM EDT Gender Identity Not on file Sexual Orientation Not on file documented as of this encounter Plan of Treatment Upcoming Encounters Date Type Department Care Team (Late st Contact Info) Description 12/27/2025 3:15 PM EST Office Visit [facility] [place] [facility] [place] [address] [place] [address] Giorgi Escalante MD [address] [place] [address] [place] [address] documented as of this encounter Visit Diagnoses Not on filedocumented in this encounter Care Teams Winding Machine Operator Relationship Specialty Start Date End Date Francis Nye MD [facility] [place] [place], [place] PCP - General Internal Medicine 09/21/25 documented as of this encounter
--- OUTSIDE RECORDS SUMMARY | 2025-11-28 18:37 | XMS_ITS | Encounter Summary ---
Author Organization [employer] Address [address] [facility] 7[address] [place] [address] Care Team Providers Care Heating Fixture Tender Name Role Phone Unavailable Primary Care Provider Unavailabl e Reason for Visit * Reason Onset Date Comments Extraction aftercare 05/11/2025 Encounter Details Date Type Department Care Team (Late st Contact Info) Description 05/11/2025 Telephone [facility] [address] [place] [address] Hardeep Gibson, DMD [address] [place] [address] Extraction aftercare Social History Tobacco Use Types [...] call. Sent to both clinical support and tennis desk team member documented in this encounter Plan of Treatment Not on file documented as of this encounter Visit Diagnoses Not on filedocumented in this encounter
--- OUTSIDE RECORDS SUMMARY | 2025-11-28 18:37 | XMS_ITS | Clinical Summary ---
Author Organization [employer] Address [address] [facility] [address] [place] [address] Care Team Providers Care Building Maintenance Superintendent Name Role Phone Unavailable Primary Care Provider [...]
--- OUTSIDE RECORDS SUMMARY | 2025-11-28 18:37 | XMS_ITS | Data Portability ---
Author Organization [place] [facility] Address [address] [place] [address] Care Team Providers Care Etcher Machine Name Role Phone JENNIFER BETTS Primary Care Provider [phone] Assessment Encounter Date Assessment Date Assessment LastModified [...] were answered prior to DH team departure. [email or web address] Not available 08/07/2022 18:48:34 Plan of Treatment Reminders Order Date Submit Date Provider Last Modified By Organization Details Last Modified Time Details Appointments None recorded. Lab unlisted lab - covid-19 (novel coronaviru s) PCR 2021 022 IRENE [facility] (Centralized Electronic Ordering - All Locations), Patient Can Go To The Location Of Their Choice, [id number] 16:05:23 Referral None recorded. Procedures None recorded. Surgeries None recorded. Imaging None recorded. Medication Orders None recorded. Patient TargetsNo targets recorded. Patient Instructions Encounter Date Encounter Id Patient Instructions Last Modified By Organization Details Last Modified Time 08/07/2022 [id number] sore throat: car e instructions [email or web address] [id number] Not available 08/07/2022 17:27:52 Please seek [...] in your condition between 8am-10pm, please call [facility] at [phone] to help navigate your care. [email or web address] [id number] Not available 08/07/2022 17:07:41 Reason for [...] ng. Resul t repor audra to the [facility]. To preve nt error s in [...] perfo rmed by real time PCR utili [employer] SARS- CoV-2 test. Not Available [facility] (Centralized Electronic Ordering - All Locations) Patient Can Go To The Location Of Their Choice, [id number] 08/08/2022 16:05:23 08/07/20 22 08/08/2022 COVID -19 (NOVE L CORON AVIRU S) PCR covid-19 PCR specimen source NASAL Not Available [facility] (Centralized Electronic Ordering - All Locations) Patient Can Go To The Location Of Their Choice, [id number] 08/08/2022 16:05:23 Result Notes None recorded. Procedures Surgical History Date Name Laterality Status Provider Name and Address Organization Details Recorded Time thyroidectomy completed Sara Flores NP [address] [place], [address], [place] [facility] 08/07/2022 17:04:06 Imaging Results None recorded. Procedure Notes None recorded. Medical Equipment None Reported. Allergies Allergen ID Allergen Name Allergen Category Reaction Reaction Severity Criticality Documentation Date Start Date Code Code System Note Provider Name and Address Organization Details Recorded Time 307613 Abilify medicatio n Not available Not available Not available 08/07/2022 91246 3 RxNorm Sara Flores NP [address] [place], [address], [place] [facility] 16:57:18 [id number] Bactrim medicatio n Not available Not available Not available 08/07/2022 88159 9 RxNorm Sara Flores NP [address], [place], [address], [place] [facility] 2 16:57:26 757722 aspirin medicatio n Not available Not available Not available 08/07/2022 1191 RxNorm Sara Flores , [employer]INDOWS SYSTEM ADMIN [address], [place], [address], [place] [facility] 16:57:50 269125 bupropion Not available Not available Not available Not available 08/07/2022 02892 RxNorm Sara Flores , [employer] [address], [place], [address], [place] [facility] 16:58:24 [id number] Cogentin medicatio n Not available Not available Not available 08/07/2022 38255 2 RxNorm Sara Flores , [employer] [address], [place], [address], [place] [facility] 16:58:34 [id number] Inderal medicatio n Not available Not available Not available 08/07/2022 60278 0 RxNorm Sara Flores , [employer] [address], [place], [address], [place] [facility] 16:58:42 009636 Motrin medicatio n Not available Not available Not available 08/07/2022 69424 8 RxNorm Sara Flores , [employer] [address], [place], [address], [place] [facility] 16:58:50 103103 Product containin g penicilli n (product) medicatio n Not available Not available Not available 08/07/2022 71872 8001 SNOMED Saar Flores , [employer]INDOWS SYSTEM ADMIN [address], [place], [address], [place] [facility] 2 16:59:03 873841 risperido ne medicatio n Not available Not available Not available 08/07/2022 91871 RxNorm Sara Flores , [employer] [address], [place], [address], [place] [facility] 16:59:16 594389 Zyprexa medicatio n Not available Not available Not available 08/07/2022 25430 3 RxNorm Sara Flores , [employer] [address], [place], [place], [address], [place] [facility] 16:59:27 961983 Trilafon medicatio n Not available Not available Not available 08/07/2022 89721 0 RxNorm Sara Flores , [employer] [address], [place], [address], [place] [facility] 2 16:59:46 188248 erythromy juan medicatio n Not available Not available Not available 08/07/2022 4053 RxNorm Sara Flores , [employer] [address], [place], [place], [address], [place] [facility] [...] AND REMOVE EVERY 7TH DAY WITH NAIL MONEGASQUE REMOVER 08/07 completed Not Available Not Available [...] Smoker May Mark, BRIANA [address], [place], [address], [place] [facility] 08/07/2022 17:05:03 Is Blood Transfusion Acceptable In An Emergency? Yes [email or web address] Information not available 08/07/2022 What Is Your Code Status? Full Code [email or web address] Information not available 08/07/2022 When Did You Quit Smoking? 16+yearssince lastcigarette [email or web address] Information not available 08/07/2022 Within The Past 12 Months, Has It Happened That The Food You Bought Just Didn't Last And You Didn't Have Money To Get More. No [email or web address] Information not available 08/07/2022 Within The Past 12 Months, Have You Worried That Your Food Would Run Out Before You Got Money To Buy More. No [email or web address] Information not available 08/07/2022 Fall Risk: Do You Feel Unsteady When Standing Or Walking? No [email or web address] Information not available 08/07/2022 We Know That How And When People Interact With Friends And Family Can Be Very Different From Person To Person. How Often Do You Have The Opportunity To See Or Talk To People That You Care About And Feel Close To? (Ex: Talking To Friends On The Phone Or Visiting Friends Or Family Or Going To [employer] Or Club Meetings) Choose Not To Answer This Question [email or web address] Information not available 08/07/2022 Excessive Alcohol Or Drug Use No [email or web address] Information not available 08/07/2022 Does This Patient Have A PCP? Yes [email or web address] Information not available 08/07/2022 Has The Patient Seen Their PCP In The Past 6 Months? Yes Information not available 08/07/2022 Is This Patient In Hospice? No [email or web address] Information not available 08/07/2022 We Know From Many Of Our Patients That Covering All Of Their Costs Can Be Difficult At Times. This Can Cause Stress And Impact Health. In The Past Year, Have You Been Unable To Get Any Of The Following When It Was Really Needed? No [email or web address] Information not available 08/07/2022 What Is Your Housing Situation Today? I Have Housing [email or web address] Information not available 08/07/2022 Do You Have An Out Of Hospital DNR? No [email or web address] Information not available 08/07/2022 At What Age Did You Start Smoking Tobacco? 11 [email or web address] Information not available 08/07/2022 Sex: Unknown Functional Status Question Answer Note LastModified by Organizat ion Details LastModified Time Do you use any illicit or recreational drugs? No Information not available 08/07/2022 What is your level of alcohol consumption? None [email or web address] Information not available 08/07/2022 Mental Status None recorded. Family History Nothing Reported. Medical History Condition Response Diabetes N Coronary Artery Disease N CHF N Parkinson's Disease N Cancer Y Stroke N Dementia N Asthma N COPD N Depression N Hypothyroidism Y High Cholesterol Y Rheumatoid Arthritis N Pulmonary Embolism N Hypertension N A-fib N Osteoporosis N Kidney Disease N Gynecological HistoryNo gynecological history recorded. Obstetrics History GPAL:G 0 P 0 0 0 0 Past Encounters Encounter ID Performer Location Encounter Start Date Encounter Closed Date Diagnosis/Indication Diagnosis SNOMED-CT Code Diagnosis ICD10 Code Diagnosis IMO Codes Diagnosis Note [id number] May BRIANA Flores [facility] [address] [facility] [place], [place] [address] 08/07/2022 16:53:06 08/08/2022 15:38:35 Exposure to communicable disease 501676869 Z20.822 Loss of taste 53999409 R 43.2 Pain in throat 754479048 R07.0 Health Concerns Section Related Observation LastModified by Organization Detai ls LastModified Time None Recorded Concern Status LastModified by Organization Details LastModified Time None Recorded Advance Directives Directive None Recorded Payers Insurance Date Sequence Insurance Name Policy Number Policy Gutierrez Covered Member ID Gutierrez Member ID Guarantor Name 08/07/2022 1 *SELF PAY* Maryse Shaikh [id number] Maryse Shaikh 08/08/2022 1 [place] [facility] Maryse Shaikh [id number] Maryse Shaikh Notes Date Note Type Note [...] discomfort. Sara Flores NP [address], [place], [address], [place] [facility] 08/07/2022 21:04:37 OBGyn Episode No OBEpisode recorded.
--- OUTSIDE RECORDS SUMMARY | 2025-11-28 18:37 | XMS_ITS | Clinical Summary ---
Author Organization [address] [facility] Address [address] [place] [address] Phone Care Team Providers Care Tubing Machine Operator Name Role Phone Lino Parker MD Primary Care Provider [phone] Allergies Active Allergy Reactions Criticality Noted Date [...] Medical History Date Comments Other bipolar disorder ([facility] V24, [facility] V28) DX:Other bipolar disorder ([facility]) Post-traumatic stress disord er, unspecified DX:Post-traumatic stress dis order, unspecified 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[facility] V24, [facility] V28) DX:Dissociative identity dis order ([facility]) Mood disorder ([facility] V24) DX:M ood disorder ([facility]) No diagnosis on [place] DX:No di agnosis on [place] Social History Tobacco Use Types Packs/Day [...] Screening 1960 Colorectal Cancer Screening: Colonoscopy 1960 Drug Screen 1960 Non-Opioid Controlled Substance Agreement 1958 Pneumococcal Vaccine: 50+ Years (1 of [...] Insurance MEDICARE [place]ICAID - [place] Care Teams Tubing Machine Operator Relationship Specialty Start Date End Date Lino Parker MD [address] [place] [address] [place] [address] PCP - General Internal Medicine 07/13/18
--- NOTE | 2025-11-28 21:12 | MHC.CARE ---
CARE team spoke with Jaqueline at [facility], referral received and activated at 9:13pm. Referral under review
--- NOTE | 2025-11-28 23:42 | PC.NURSE ---
Took over care from BATSHEVA Bowles at 23:00, medicated per jan, pt resting at this time.
[2025-11-29 06:49] VITALS: BP 116/69; PULSE 72; RESP 12; TEMP 36.4; O2SAT 99
--- NOTE | 2025-11-29 11:30 | PHA.MEDREC ---
Pharmacy Consult ? Medication Reconciliation Pharmacy has reviewed the medication reconciliation done by nursing and also spoke to patient to confirm her levothyroxine dose. She was not sure what the dose should be and wanted me to call Dr. Nye's office to confirm. I called and spoke to Elisa at office who confirmed her dose is 112 mcg daily. Med rec updated.
[2025-11-29] MEDS: Calcium Oyster Shell Elemental 500 MG TABLET 600 MG PO (11:49)
[2025-11-29 14:00] VITALS: BP 133/68; PULSE 83; RESP 16; TEMP 36.4; O2SAT 99
--- NOTE | 2025-11-29 14:05 | PC.NURSE ---
pt set to go to [facility] for 729, pt set up transport for 1500, pt has been anxious about coordinating her ride and time at home before arriving at 1930. plan repeated mult times and reinforcement given for this plan working well. has been jotting the plan to paper
[2025-11-29 14:58] VITALS: BP 133/68; PULSE 83; RESP 16; TEMP 36.4; O2SAT 99
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
== END 2025-11-29 15:00 | disposition other institution (70) ==
PROVIDERS: Physician Assistant Medical; Emergency Provider Emergency Medicine; PCP Internal Medicine
DX: F44.81 Dissociative identity disorder (principal); S09.90XA Unspecified injury of head, initial encounter; R51.9 Headache, unspecified; Y29.XXXA Contact with blunt object, undetermined intent, initial encounter; Y93.9 Activity, unspecified; Y92.9 Unspecified place or not applicable; Y99.8 Other external cause status; Z51.81 Encounter for therapeutic drug level monitoring; Z87.891 Personal history of nicotine dependence; Z79.899 Other long term (current) drug therapy
CPT/HCPCS: 36415; 70450; 80053; 80143; 80179; 80307; 81001; 85025; 99284; S9485

== ENCOUNTER → 2025-11-28 16:44 | Outpatient (BNV) | payer MEDICARE, MEDICAID, SELFPAY | PROVIDERS: Emergency Provider Emergency Medicine; PCP Internal Medicine; Visit Provider Radiology Diagnostic Radiology | DX: S09.90XA Unspecified injury of head, initial encounter (principal) | CPT/HCPCS: 70450 ==